=== PATIENT | female | born 1940 | race Caucasian/White ===

== ENCOUNTER 2017-05-29 11:22 | Inpatient (IN) | payer MEDICARE ==
[~2017-05-29] VITALS: Ht 157.5 cm; Wt 103.2 kg
[~2017-05-29 11:22] MED LIST: BENZ100 PO; DILTCD240 PO; FENO50TA PO; FURO20 PO; HYDR1CRE TOP; LORA.5 PO; METO25 PO; OXYC5 PO; PRAV40TA PO; RANI150 PO; TEMA15 PO
[2017-05-29 11:30] VITALS: BP 132/60; PULSE 109; RESP 20; TEMP 97.8; O2SAT 95
[2017-05-29] MEDS ORDERED: DULO1CAP2 PO (11:41)
[2017-05-29] MEDS ORDERED: WARF-18 PO (11:41)
[2017-05-29] MEDS ORDERED: LOSA100T PO (11:41)
[2017-05-29] MEDS ORDERED: FURO1TAB60 PO (11:41)
[2017-05-29] MEDS ORDERED: CART120C PO (11:41)
[2017-05-29] MEDS ORDERED: DIGO0.12 PO (11:41)
[2017-05-29] MEDS ORDERED: K-TA10TA PO (11:41)
[2017-05-29] MEDS ORDERED: METO25TA3 PO (11:41)
[2017-05-29] MEDS ORDERED: SODIUM CHLORIDE 0.9% FLUSH 10 ML FLUSH IVF PRN ×2 (12:00→18:00)
[2017-05-29] MEDS ORDERED: SODIUM CHLOR 0.9% 1000 ML INJ 1,000 ML IV ONE (12:00)
[2017-05-29 12:09] VITALS: O2SAT 99
[2017-05-29] MEDS ORDERED: ONDANSETRON HCL 4 MG/2 ML VIAL IV PUSH ONE (12:15)
[2017-05-29 12:20] LABS: AUTOMATED NEUTROPHIL # 14.1 TH/MM3 (1.8-7.7); BASOPHIL # 0.1 TH/MM3 (0-0.2); BASOPHIL % 0.4 % (0.0-2.0); EOSINOPHIL # 0.3 TH/MM3 (0-0.4); EOSINOPHIL % 1.6 % (0.0-4.0); HEMATOCRIT 33.3 % (35.0-46.0); HEMO FLAGS DIFF FINAL; LYMPH % 7.7 % (9.0-44.0); LYMPHOCYTE # 1.3 TH/MM3 (1.0-4.8); MEAN CELL VOLUME 93.3 FL (80.0-100.0); MEAN CORPUSCULAR HEMOGLOBIN 29.9 PG (27.0-34.0); MONO % 4.3 % (0.0-8.0); PLATELET COUNT 244 TH/MM3 (150-450); RED BLOOD COUNT 3.57 MIL/MM3 (4.00-5.30); RED CELL DISTRIBUTION WIDTH 15.1 % (11.6-17.2); WHITE BLOOD COUNT 16.4 TH/MM3 (4.0-11.0)
[2017-05-29 12:32] LABS: APTT (PATIENT) 39.2 SEC (24.3-30.1); INTERNATIONAL NORMALIZED RATIO 4.5 RATIO; PROTHROMBIN TIME - PATIENT 52.8 SEC (9.8-11.6)
[2017-05-29 12:36] LABS: ALT (GPT) 40 U/L (10-53); ANION GAP 11 MEQ/L (5-15); AST (GOT) 40 U/L (15-37); BICARBONATE 25.7 MEQ/L (21.0-32.0); BLOOD UREA NITROGEN 28 MG/DL (7-18); CHLORIDE 103 MEQ/L (98-107); GLOMERULAR FILTRATION RATE 56 ML/MIN (>89); MAGNESIUM 1.8 MG/DL (1.5-2.5); POTASSIUM 4.3 MEQ/L (3.5-5.1); SODIUM (NA) 140 MEQ/L (136-145)
--- NOTE | 2017-05-29 12:38 | RADRPT ---
EXAM DATE/TIME: 05/29/2017 12:13 [facility] COMPARISON: CHEST SINGLE AP, May 22, 2016, 3:12. INDICATIONS : Syncope. MEDICAL HISTORY : Gastroesophageal reflux disease. Hypercholesterolemia. Hypertension. SURGICAL HISTORY : Cholecystectomy. ENCOUNTER: Initial ACUITY: 1 day PAIN SCORE: 0/10 LOCATION: Bilateral chest FINDINGS: The cardiac silhouette is enlarged in transverse diameter. There is right lower lobe atelectasis vers us pneumonia. Followup examination is recommended if clinically indicated. The left lung is free of a cute parenchymal opacity. No pleural effusions are identified. CONCLUSION: 1. Right lower lobe atelectasis versus pneumonia. Vamshi Fernandez MD on May 29, 2017 at 12:35 Board Certified Radiologist. This report was verified electronically.
[2017-05-29 12:51] LABS: ALKALINE PHOSPHATASE 131 U/L (45-117); CREATINE KINASE 578 U/L (26-192); DIGOXIN 0.7 NG/ML (0.8-2.0)
[2017-05-29 13:17] LABS: CKMB 1.3 NG/ML (0.5-3.6)
--- NOTE | 2017-05-29 13:52 | RADRPT ---
EXAM DATE/TIME: 05/29/2017 13:18 [facility] COMPARISON: No previous studies available for comparison. INDICATIONS : Trauma, fall a few days ago. Weakness and dizziness. RADIATION DOSE: 56.35 CTDIvol (mGy) MEDICAL HISTORY : Cardiovascular disease. Hypertension. SURGICAL HISTORY : Cholecystectomy. ENCOUNTER: Initial ACUITY: 4 - 6 days PAIN SCALE: 10/10 LOCATION: cranial TECHNIQUE: Multiple contiguous axial images were obtained of the head. Using automated exposure control and adj ustment of the mA and/or kV according to patient size, radiation dose was kept as low as reasonably a chievable to obtain optimal diagnostic quality images. DICOM format image data is available electro nically for review and comparison. FINDINGS: CEREBRUM: There is 8 small parafalcine posterior subdural blood layering along the right tentorium with associa earl small cortical hemorrhage high right parietal region. The left hemisphere is unremarkable. POSTERIOR FOSSA: The cerebellum and brainstem are intact. The 4th ventricle is midline. The cerebellopontine angle i s unremarkable. EXTRACRANIAL: The visualized portion of the orbits is intact. SKULL: The calvaria is intact. No evidence of skull fracture. CONCLUSION: Parafalcine subdural hematoma small cortical hemorrhage on the right. There is no mass effect. Vic Romero MD FACR on May 29, 2017 at 13:48 Board Certified Radiologist. This report was verified electronically.
--- NOTE | 2017-05-29 13:56 | PD ---
HPI Chief Complaint: General Weakness Time Seen by Provider: 11:39 Travel History International Travel<30 days: No Contact w/Intl Traveler<30days: No Traveled to known affect area: No History of Present Illness HPI Patient is a 76-year-old female who presents to emergency room with complaints of generalized weakness. Patient reports that she does take Coumadin as she has history of atrial fibrillation. Patient reports that 2 days ago, she fell twice. Patient reports that the first she fell, she slipped on water onto the floor. Patient did hit her head at this time. Reports no loss of consciousness. Patient reports that she fell a second time on Thursday night, reports at that time, she fell in the bathroom and she made had a syncopal episode during that time. Patient reports that she was seen at an outside hospital and had " a full body scan" and was told that everything was okay. Patient returns to emergency room today as she appears weaker and has some dizziness. Daughter reports the patient had an episode of hypotension upon arrival of EMS. PFSH Past Medical History Arthritis: Yes Asthma: No Autoimmune Disease: No Blood Disorders: No Heart Rhythm Problems: Yes (this visit) Cancer: No Cardiovascular Problems: Yes (acute afib/rvr this visit) High Cholesterol: Yes Chemotherapy: No Chest Pain: No Congestive Heart Failure: No COPD: No Cerebrovascular Accident: No Diabetes: No Diminished Hearing: No Endocrine: Yes Gastrointestinal Disorders: Yes (HX DIVERTICULITIS) GERD: Yes Genitourinary: No Headaches: No Hiatal Hernia: Yes Heparin Induced Thrombocytopen: No Hypertension: Yes Immune Disorder: No Implanted Vascular Access Dvce: Yes Kidney Stones: No Musculoskeletal: No Neurologic: No Psychiatric: No Reproductive: No Respiratory: No Immunizations Current: Yes Migraines: No Radiation Therapy: No Renal Failure: No Seizures: No Sickle Cell Disease: No Sleep Apnea: No Thyroid Disease: Yes (GOITER) Ulcer: No Past Surgical History Abdominal Surgery: No AICD: No Arteriovenous Shunt: No Cardiac Surgery: No Cholecystectomy: Yes Ear Surgery: No Endocrine Surgery: No Eye Surgery: Yes (cataract bilateral) Genitourinary Surgery: No Gynecologic Surgery: No Insulin Pump: No Joint Replacement: Yes (BILATERAL KNEE) Neurologic Surgery: No Oral Surgery: No Pacemaker: No Thoracic Surgery: No Other Surgery: Yes Social History Alcohol Use: No Tobacco Use: No Substance Use: No Allergies-Medications (Allergen,Severity, Reaction): Coded Allergies: codeine (Unverified Allergy, Severe, NAUSEA, 05/12/17) piperacillin (Unverified Allergy, Intermediate, Rash, 05/12/17) tazobactam (Unverified Allergy, Intermediate, Rash, 05/12/17) Reported Meds & Prescriptions Reported Meds & Active Scripts Active Reported Cartia Xt (Diltiazem ER 24 HR) 120 Mg Caper 180 Mg PO DAILY K-Tab (Potassium Chloride) 10 Meq Tab 10 Meq PO DAILY Metoprolol Tartrate 25 Mg Tab 25 Mg PO BID Lasix (Furosemide) 40 Mg Tab 40 Mg PO DAILY Digoxin 0.125 Mg Tab 0.125 Mg PO DAILY Warfarin 2.5 Mg Tab 2.5 Mg PO DAILY Losartan (Losartan Potassium) 100 Mg Tab 100 Mg PO DAILY Duloxetine DR (Duloxetine HCl) 30 Mg Capdr 30 Mg PO DAILY Review of Systems General / Constitutional: No: Fever Eyes: No: Visual changes HENT: Positive: Headaches Cardiovascular: No: Chest Pain or Discomfort Respiratory: No: Shortness of Breath Gastrointestinal: No: Abdominal Pain Genitourinary: No: Dysuria Musculoskeletal: No: Pain Skin: No Rash Neurologic: Positive: Weakness, Dizziness Psychiatric: No: Depression Endocrine: No: Polydipsia Hematologic/Lymphatic: No: Easy Bruising Physical Exam Narrative GENERAL: Moderate distress SKIN: Focused skin assessment warm/dry. Patient pale-appearing HEAD: Atraumatic. Normocephalic. EYES: Pupils equal and round. No scleral icterus. No injection or drainage. ENT: No nasal bleeding or discharge. Mucous membranes pink and moist. NECK: Trachea midline. No JVD. CARDIOVASCULAR: Regular rate and rhythm. No murmur appreciated. RESPIRATORY: No accessory muscle use. Clear to auscultation. Breath sounds equal bilaterally. GASTROINTESTINAL: Abdomen soft, non-tender, nondistended. Hepatic and splenic margins not palpable. Ostomy bag in place MUSCULOSKELETAL: No obvious deformities. No clubbing. No cyanosis. No edema. NEUROLOGICAL: Awake and alert. No obvious cranial nerve deficits. Motor grossly within normal limits. Normal speech. PSYCHIATRIC: Appropriate mood and affect; insight and judgment normal. Data Data Last Documented VS Vital Signs Date Time Temp Pulse Resp B/P (MAP) Pulse Ox O2 Delivery O2 Flow Rate FiO2 05/29/17 12:09 99 05/29/17 11:30 97.8 109 20 132/60 (84) Orders Orders Electrocardiogram (05/29/17 12:00) Complete Blood Count With Diff (05/29/17 12:00) Comprehensive Metabolic Panel (05/29/17 12:00) Magnesium (Mg) (05/29/17 12:00) B-Type Natriuretic Peptide (05/29/17 12:00) Ckmb (Isoenzyme) Profile (05/29/17 12:00) Troponin I (05/29/17 12:00) Act Partial Throm Time (Ptt) (05/29/17 12:00) Prothrombin Time / Inr (Pt) (05/29/17 12:00) Urinalysis - C+S If Indicated (05/29/17 12:00) Chest, Single Ap (05/29/17 12:00) Ct Brain W/O Iv Contrast(Rout) (05/29/17 12:00) Ecg Monitoring (05/29/17 12:00) Iv Access Insert/Monitor (05/29/17 12:00) Oximetry (05/29/17 12:00) Sodium Chloride 0.9% Flush (Ns Flush) (05/29/17 12:00) Sodium Chlor 0.9% 1000 Ml Inj (Ns 1000 M (05/29/17 12:00) Digoxin (05/29/17 12:00) Oxycodone (Roxicodone) (05/29/17 12:00) Ondansetron Inj (Zofran Inj) (05/29/17 12:15) CKMB (05/29/17 12:00) CKMB% (05/29/17 12:00) Blood Culture (05/29/17 14:04) Levofloxacin 750 Mg Premix Inj (Levaquin (05/29/17 14:15) Morphine Inj (Morphine Inj) (05/29/17 14:15) Consult Neurosurgery (05/29/17 ) Admit Order (Ed Use Only) (05/29/17 14:46) ^ Lab Follow Up (05/29/17 14:47) Prothrombin Complex Conc Inj (Kcentra In (05/29/17 15:30) Phytonadione (Mephyton) (05/29/17 15:00) (Hub Use Only)Inp Phy Cons/Ref (05/29/17 ) Labs Laboratory Tests Test 05/29/17 12:00 White Blood Count 16.4 TH/MM3 Red Blood Count 3.57 MIL/MM3 Hemoglobin 10.7 GM/DL Hematocrit 33.3 % Mean Corpuscular Volume 93.3 FL Mean Corpuscular Hemoglobin 29.9 PG Mean Corpuscular Hemoglobin Concent 32.0 % Red Cell Distribution Width 15.1 % Platelet Count 244 TH/MM3 Mean Platelet Volume 8.3 FL Neutrophils (%) (Auto) 86.0 % Lymphocytes (%) (Auto) 7.7 % Monocytes (%) (Auto) 4.3 % Eosinophils (%) (Auto) 1.6 % Basophils (%) (Auto) 0.4 % Neutrophils # (Auto) 14.1 TH/MM3 Lymphocytes # (Auto) 1.3 TH/MM3 Monocytes # (Auto) 0.7 TH/MM3 Eosinophils # (Auto) 0.3 TH/MM3 Basophils # (Auto) 0.1 TH/MM3 CBC Comment DIFF FINAL Differential Comment Prothrombin Time 52.8 SEC Prothromb Time International Ratio 4.5 RATIO Activated Partial Thromboplast Time 39.2 SEC Blood Urea Nitrogen 28 MG/DL Creatinine 0.97 MG/DL Random Glucose 164 MG/DL Total Protein 6.8 GM/DL Albumin 2.9 GM/DL Calcium Level 9.6 MG/DL Magnesium Level 1.8 MG/DL Alkaline Phosphatase 131 U/L Aspartate Amino Transf (AST/SGOT) 40 U/L Alanine Aminotransferase (ALT/SGPT) 40 U/L Total Bilirubin 1.0 MG/DL Sodium Level 140 MEQ/L Potassium Level 4.3 MEQ/L Chloride Level 103 MEQ/L Carbon Dioxide Level 25.7 MEQ/L Anion Gap 11 MEQ/L Estimat Glomerular Filtration Rate 56 ML/MIN Total Creatine Kinase 578 U/L Creatine Kinase MB 1.3 NG/ML Creatine Kinase MB % 0.2 % Troponin I LESS THAN 0.02 NG/ML B-Type Natriuretic Peptide 171 PG/ML Digoxin Level 0.7 NG/ML MDM Medical Decision Making Medical Screen Exam Complete: Yes Emergency Medical Condition: Yes Interpretation(s) EGK at 1207: afib at 100bpm, qt/qtc: 331/388 Vital Signs Date Time Temp Pulse Resp B/P (MAP) Pulse Ox O2 Delivery O2 Flow Rate FiO2 05/29/17 12:09 99 05/29/17 11:30 97.8 109 20 132/60 (84) 95 Laboratory Tests Test 05/29/17 12:00 White Blood Count 16.4 TH/MM3 (4.0-11.0) Red Blood Count 3.57 MIL/MM3 (4.00-5.30) Hemoglobin 10.7 GM/DL (11.6-15.3) Hematocrit 33.3 % (35.0-46.0) Mean Corpuscular Volume 93.3 FL (80.0-100.0) Mean Corpuscular Hemoglobin 29.9 PG (27.0-34.0) Mean Corpuscular Hemoglobin Concent 32.0 % (32.0-36.0) Red Cell Distribution Width 15.1 % (11.6-17.2) Platelet Count 244 TH/MM3 (150-450) Mean Platelet Volume 8.3 FL (7.0-11.0) Neutrophils (%) (Auto) 86.0 % (16.0-70.0) Lymphocytes (%) (Auto) 7.7 % (9.0-44.0) Monocytes (%) (Auto) 4.3 % (0.0-8.0) Eosinophils (%) (Auto) 1.6 % (0.0-4.0) Basophils (%) (Auto) 0.4 % (0.0-2.0) Neutrophils # (Auto) 14.1 TH/MM3 (1.8-7.7) Lymphocytes # (Auto) 1.3 TH/MM3 (1.0-4.8) Monocytes # (Auto) 0.7 TH/MM3 (0-0.9) Eosinophils # (Auto) 0.3 TH/MM3 (0-0.4) Basophils # (Auto) 0.1 TH/MM3 (0-0.2) CBC Comment DIFF FINAL Differential Comment Prothrombin Time 52.8 SEC (9.8-11.6) Prothromb Time International Ratio 4.5 RATIO Activated Partial Thromboplast Time 39.2 SEC (24.3-30.1) Blood Urea Nitrogen 28 MG/DL (7-18) Creatinine 0.97 MG/DL (0.50-1.00) Random Glucose 164 MG/DL (74-106) Total Protein 6.8 GM/DL (6.4-8.2) Albumin 2.9 GM/DL (3.4-5.0) Calcium Level 9.6 MG/DL (8.5-10.1) Magnesium Level 1.8 MG/DL (1.5-2.5) Alkaline Phosphatase 131 U/L (45-117) Aspartate Amino Transf (AST/SGOT) 40 U/L (15-37) Alanine Aminotransferase (ALT/SGPT) 40 U/L (10-53) Total Bilirubin 1.0 MG/DL (0.2-1.0) Sodium Level 140 MEQ/L (136-145) Potassium Level 4.3 MEQ/L (3.5-5.1) Chloride Level 103 MEQ/L (98-107) Carbon Dioxide Level 25.7 MEQ/L (21.0-32.0) Anion Gap 11 MEQ/L (5-15) Estimat Glomerular Filtration Rate 56 ML/MIN (>89) Total Creatine Kinase 578 U/L (26-192) Creatine Kinase MB 1.3 NG/ML (0.5-3.6) Creatine Kinase MB % 0.2 % (0.0-4.0) Troponin I LESS THAN 0.02 NG/ML B-Type Natriuretic Peptide 171 PG/ML (0-100) Digoxin Level 0.7 NG/ML (0.8-2.0) Last Impressions Head CT 05/29/17 1200 Signed Impressions: Service Date/Time: Monday, May 29, 2017 13:18 - CONCLUSION: Parafalcine subdural hematoma small cortical hemorrhage on the right. There is no mass effect. Vic Romero MD FACR Chest X-Ray 05/29/17 1200 Signed Impressions: Service Date/Time: Monday, May 29, 2017 12:13 - CONCLUSION: 1. Right lower lobe atelectasis versus pneumonia. Vamshi Fernandez MD Differential Diagnosis Differential includes intracranial hemorrhage, UTI, electrolyte abnormality, ACS , arrhythmia Narrative Course Patient was placed on a cardiac monitor technician upon arrival to emergency room. CT of head ordered as well as of the chest and lab work. Laboratory Tests Test 05/29/17 12:00 White Blood Count 16.4 TH/MM3 (4.0-11.0) Red Blood Count 3.57 MIL/MM3 (4.00-5.30) Hemoglobin 10.7 GM/DL (11.6-15.3) Hematocrit 33.3 % (35.0-46.0) Mean Corpuscular Volume 93.3 FL (80.0-100.0) Mean Corpuscular Hemoglobin 29.9 PG (27.0-34.0) Mean Corpuscular Hemoglobin Concent 32.0 % (32.0-36.0) Red Cell Distribution Width 15.1 % (11.6-17.2) Platelet Count 244 TH/MM3 (150-450) Mean Platelet Volume 8.3 FL (7.0-11.0) Neutrophils (%) (Auto) 86.0 % (16.0-70.0) Lymphocytes (%) (Auto) 7.7 % (9.0-44.0) Monocytes (%) (Auto) 4.3 % (0.0-8.0) Eosinophils (%) (Auto) 1.6 % (0.0-4.0) Basophils (%) (Auto) 0.4 % (0.0-2.0) Neutrophils # (Auto) 14.1 TH/MM3 (1.8-7.7) Lymphocytes # (Auto) 1.3 TH/MM3 (1.0-4.8) Monocytes # (Auto) 0.7 TH/MM3 (0-0.9) Eosinophils # (Auto) 0.3 TH/MM3 (0-0.4) Basophils # (Auto) 0.1 TH/MM3 (0-0.2) CBC Comment DIFF FINAL Differential Comment Prothrombin Time 52.8 SEC (9.8-11.6) Prothromb Time International Ratio 4.5 RATIO Activated Partial Thromboplast Time 39.2 SEC (24.3-30.1) Blood Urea Nitrogen 28 MG/DL (7-18) Creatinine 0.97 MG/DL (0.50-1.00) Random Glucose 164 MG/DL (74-106) Total Protein 6.8 GM/DL (6.4-8.2) Albumin 2.9 GM/DL (3.4-5.0) Calcium Level 9.6 MG/DL (8.5-10.1) Magnesium Level 1.8 MG/DL (1.5-2.5) Alkaline Phosphatase 131 U/L (45-117) Aspartate Amino Transf (AST/SGOT) 40 U/L (15-37) Alanine Aminotransferase (ALT/SGPT) 40 U/L (10-53) Total Bilirubin 1.0 MG/DL (0.2-1.0) Sodium Level 140 MEQ/L (136-145) Potassium Level 4.3 MEQ/L (3.5-5.1) Chloride Level 103 MEQ/L (98-107) Carbon Dioxide Level 25.7 MEQ/L (21.0-32.0) Anion Gap 11 MEQ/L (5-15) Estimat Glomerular Filtration Rate 56 ML/MIN (>89) Total Creatine Kinase 578 U/L (26-192) Creatine Kinase MB 1.3 NG/ML (0.5-3.6) Creatine Kinase MB % 0.2 % (0.0-4.0) Troponin I LESS THAN 0.02 NG/ML B-Type Natriuretic Peptide 171 PG/ML (0-100) Digoxin Level 0.7 NG/ML (0.8-2.0) Last Impressions Head CT 05/29/17 1200 Signed Impressions: Service Date/Time: Monday, May 29, 2017 13:18 - CONCLUSION: Parafalcine subdural hematoma small cortical hemorrhage on the right. There is no mass effect. Vic Romero MD FACR Chest X-Ray 05/29/17 1200 Signed Impressions: Service Date/Time: Monday, May 29, 2017 12:13 - CONCLUSION: 1. Right lower lobe atelectasis versus pneumonia. Vamshi Fernandez MD Patient has a white blood cell count of 16.4 with questionalbe RLL infiltrate. Plan to culture patient. Will start patient on levaquin CT of her head shows a parafalcine subdural hematoma with small cortical hemorrhage on the right with no mass effect. Patient's INR is 4.5, call made to neurosurgery. Call made to Employee Relations Advisor for admision Plan to reverse warfarin with PO vitamin K as well as Kcentra given her subdural hematoma Call and consult placed to Dr. Nicholas Baca accepts pt to service Critical Care Narrative Aggregate critical care time was 45 minutes. Time to perform other separately billable procedures was not included in the critical care time. My time did not include minutes spent treating any other patients simultaneously or on activities that did not directly contribute to the patient's treatment. The services I provided to this patient were to treat and/or prevent clinically significant deterioration that could result in: , decompensation, deterioration I provided critical care services requiring my management, as noted below: Chart data review, documentation time, medication orders and management, vital sign assessments/reviewing monitor data, ordering and reviewing lab tests, ordering and interpreting/reviewing x-rays and diagnostic studies, care of the patient and discussion of the patient with the admitting physicians. Diagnosis Primary Impression: Subdural hematoma Additional Impressions: Pneumonia Overdose of coumadin Admitting Information Admitting Physician Requests: Admit Lea Jensen DO May 29, 2017 13:56
[2017-05-29] MEDS ORDERED: MORPHINE SULFATE 4 MG/ML INJ IV PUSH ONE (14:15)
[2017-05-29] MEDS ORDERED: LEVOFLOXACIN 750 MG PREMIX INJ 150 ML IV ONE (14:15)
[2017-05-29] MEDS ORDERED: PHYTONADIONE 5 MG TAB PO ONE (15:00)
[2017-05-29] MEDS ORDERED: MISCELLANEOUS NURSING INFORMATION XX SCH (15:15)
[2017-05-29] MEDS ORDERED: SENNOSIDES 8.6 MG TAB PO PRN (15:15)
[2017-05-29] MEDS ORDERED: BISACODYL 10 MG SUPP RECTAL PRN (15:15)
[2017-05-29] MEDS ORDERED: ONDANSETRON HCL 4 MG/2 ML VIAL IV PRN (15:15)
[2017-05-29] MEDS ORDERED: LACTULOSE SYRUP 20 GM/30 ML CUP PO PRN (15:15)
[2017-05-29] MEDS ORDERED: LABETALOL HCL 100 MG/20 ML VIAL IV PUSH PRN (15:15)
[2017-05-29] MEDS ORDERED: RESP: ALBUTEROL 2.5 MG/3 ML NEB (PRN) INH (15:15)
[2017-05-29] MEDS ORDERED: SODIUM CHLORIDE 0.9% FLUSH 10 ML FLUSH IV FLUSH PRN (15:15)
[2017-05-29] MEDS ORDERED: CLEVIDIPINE INJ 50 ML IV PRN (15:15)
[2017-05-29] MEDS ORDERED: MAGNESIUM HYDROXIDE SUSP 30 ML CUP PO PRN (15:15)
[2017-05-29] MEDS ORDERED: CHLORHEXIDINE GLUCONATE 2 % 1 PACK (2 CLOTHS) TOP PRN (15:15)
[2017-05-29] MEDS ORDERED: PROTHROMBIN COMPLEX CONC INJ 2,500 UNITS in SYRINGE/BAG 1 EA IV ONE ×2 (15:30→16:30)
--- NOTE | 2017-05-29 15:31 | HHI.HP ---
[facility] Service Critical Care Medicine Primary Care Physician Shad Apple M.D. Admission Diagnosis Subdural hematoma Diagnosis: (1) Subdural hematoma Diagnosis: Principal (2) Depression Diagnosis: Principal (3) Splenic infarct Diagnosis: Secondary (4) Gastroesophageal reflux disease Diagnosis: Secondary (5) IBS (irritable bowel syndrome) Diagnosis: Secondary (6) History of DVT (deep vein thrombosis) Diagnosis: Secondary (7) Hiatal hernia Diagnosis: Secondary (8) Diverticulosis Diagnosis: Secondary (9) Chronic anticoagulation Diagnosis: Principal (10) Leukocytosis Diagnosis: Principal (11) Pneumonia Diagnosis: Principal (12) Atrial fibrillation with RVR Diagnosis: Principal (13) HTN (hypertension) Diagnosis: Principal (14) Hyperlipidemia Diagnosis: Principal (15) Current use of anticoagulant therapy Diagnosis: Principal (16) SIRS (systemic inflammatory response syndrome) Diagnosis: Principal Chief Complaint: Altered mental status Travel History International Travel<30 Days: No Contact w/Intl Traveler <30 Da: No Traveled to Known Affected Are: No Sepsis Criteria SIRS Criteria (2 or more): Heart rate over 90, WBC > 58826, < 4000 or > 10% bands Sepsis Criteria (SIRS+source): Infect source susp/known Severe Sepsis (+one): Hypotension, Hypoperfusion History of Present Illness 76-year-old female. Date of admission 05/29/2017. Past medical history includes history of atrial fibrillation, hypertension, colovesicular fistula, chronic anticoagulation on warfarin. Patient reports that 2 days ago, she fell after she slipped on water onto the floor. Patient did hit her head at this time. Reports no loss of consciousness. Patient reports that she fell a second time on Thursday night, reports at that time, she fell in the bathroom and she made had a syncopal episode during that time. Patient reports that she was seen at an outside hospital and had " a full body scan" and was told that everything was okay. Patient returns to emergency room today as she appears weaker and has some dizziness. Daughter reports the patient had an episode of hypotension upon arrival of EMS. At this facility, patient was noted on CT head to have subdural hematoma/also noted to be in atrial fibrillation with rapid ventricular response. Patient received 1 L normal saline. Patient received K [facility] 2500, vitamin K 5 mg. She received 1 dose Levaquin for right lower lobe pneumonia. Neurosurgery was consulted. We are asked to admit the patient. Patient remained in A. fib with RVR. Central was placed and started on Blayne- Synephrine/Cardizem for rate control. Initial troponin negative. Denies chest pain.. Cardiology consultation. Review of Systems Constitutional: COMPLAINS OF: Fatigue, Dizziness, DENIES: Fever, Weight loss, Chills Endocrine: DENIES: Polydipsia, Polyuria Eyes: DENIES: Blurred vision, Double Vision Ears, nose, mouth, throat: DENIES: Tinnitus Respiratory: DENIES: Apneas Cardiovascular: DENIES: Chest pain Gastrointestinal: DENIES: Abdominal pain, Nausea Genitourinary: COMPLAINS OF: Urinary frequency, Urinary incontinence Musculoskeletal: DENIES: Joint pain, Muscle aches Integumentary: DENIES: Abnormal pigmentation Hematologic/lymphatic: DENIES: Bruising Immunologic/allergic: DENIES: Eczema Neurologic: COMPLAINS OF: Headache, Poor Balance, DENIES: Localized weakness, Paresthesias, Tremor Psychiatric: COMPLAINS OF: Anxiety, Confusion, DENIES: Mood changes Past Family Social History Allergies: Coded Allergies: codeine (Verified Allergy, Severe, NAUSEA, 05/29/17) piperacillin (Verified Allergy, Intermediate, Rash, 05/29/17) tazobactam (Verified Allergy, Intermediate, Rash, 05/29/17) Past Medical History Gastroesophageal reflux disease Hypertension Dyslipidemia Chronic atrial fibrillation Obstructive sleep apnea Hiatal hernia IBS History of splenic infarction History of DVT bilateral lower extremity status post embolectomy Chronic warfarin use Depression Past Surgical History Lap-assisted loop colostomy with revision by Dr. Wetzel History of lower extremity embolectomy by Dr. Mo Cholecystectomy Bilateral total knee replacements with revision of left knee Cataracts I'll see Reported Medications Cartia Xt (Diltiazem ER 24 HR) 120 Mg Caper 180 Mg PO DAILY K-Tab (Potassium Chloride) 10 Meq Tab 10 Meq PO DAILY Metoprolol Tartrate 25 Mg Tab 25 Mg PO BID Lasix (Furosemide) 40 Mg Tab 40 Mg PO DAILY Digoxin 0.125 Mg Tab 0.125 Mg PO DAILY Warfarin 2.5 Mg Tab 2.5 Mg PO DAILY Losartan (Losartan Potassium) 100 Mg Tab 100 Mg PO DAILY Duloxetine DR (Duloxetine HCl) 30 Mg Capdr 30 Mg PO DAILYWarfarin 2.5 mg by mouth daily Digoxin 0.125 mg by mouth daily Active Ordered Medications Reviewed in EMR Family History Mother from pancreatic cancer. Father from myocardial infarction Social History Tobacco, alcohol or IV drug use negative Physical Exam Vital Signs Vital Signs Date Time Temp Pulse Resp B/P (MAP) Pulse Ox O2 Delivery O2 Flow Rate FiO2 05/29/17 12:09 99 05/29/17 11:30 97.8 109 20 132/60 (84) 95 Physical Exam GENERAL: 76 year old female, critically ill currently resting in bed SKIN: Warm and dry. Unstageable sacral decubitus ulcer HEAD: Atraumatic. Normocephalic. EYES: Pupils equal and round about 3 mm bilaterally and reactive. No scleral icterus. No injection or drainage. ENT: No nasal bleeding or discharge. Mucous membranes pink and moist. NECK: Trachea midline. No JVD. Right IJ is clean dry and intact CARDIOVASCULAR: Tachycardia, IR. S1, S2. No S4 without murmur RESPIRATORY: Few fine crackles crackles appreciated in right lower lobe. No end expiratory wheeze GASTROINTESTINAL: Abdomen soft, non-tender, nondistended. Hypoactive bowel sounds appreciated MUSCULOSKELETAL: Extremities without significant peripheral edema. No obvious deformities. NEUROLOGICAL: Awake and alert. No obvious cranial nerve deficits. Motor grossly within normal limits. Five out of 5 muscle strength in the arms and legs. Normal speech. Laboratory Laboratory Tests Test 05/29/17 12:00 White Blood Count 16.4 Red Blood Count 3.57 Hemoglobin 10.7 Hematocrit 33.3 Mean Corpuscular Volume 93.3 Mean Corpuscular Hemoglobin 29.9 Mean Corpuscular Hemoglobin Concent 32.0 Red Cell Distribution Width 15.1 Platelet Count 244 Mean Platelet Volume 8.3 Neutrophils (%) (Auto) 86.0 Lymphocytes (%) (Auto) 7.7 Monocytes (%) (Auto) 4.3 Eosinophils (%) (Auto) 1.6 Basophils (%) (Auto) 0.4 Neutrophils # (Auto) 14.1 Lymphocytes # (Auto) 1.3 Monocytes # (Auto) 0.7 Eosinophils # (Auto) 0.3 Basophils # (Auto) 0.1 CBC Comment DIFF FINAL Differential Comment Prothrombin Time 52.8 Prothromb Time International Ratio 4.5 Activated Partial Thromboplast Time 39.2 Blood Urea Nitrogen 28 Creatinine 0.97 Random Glucose 164 Total Protein 6.8 Albumin 2.9 Calcium Level 9.6 Magnesium Level 1.8 Alkaline Phosphatase 131 Aspartate Amino Transf (AST/SGOT) 40 Alanine Aminotransferase (ALT/SGPT) 40 Total Bilirubin 1.0 Sodium Level 140 Potassium Level 4.3 Chloride Level 103 Carbon Dioxide Level 25.7 Anion Gap 11 Estimat Glomerular Filtration Rate 56 Total Creatine Kinase 578 Creatine Kinase MB 1.3 Creatine Kinase MB % 0.2 Troponin I LESS THAN 0.02 B-Type Natriuretic Peptide 171 Digoxin Level 0.7 Date/Time Source Procedure Growth Status 05/29/17 14:20 Blood Peripheral Aerobic Blood Culture Pending Received 05/29/17 14:20 Blood Peripheral Anaerobic Blood Culture Pending Received Result Diagram: 05/29/17 1200 05/29/17 1200 Imaging Last Impressions Head CT 05/29/17 1200 Signed Impressions: Service Date/Time: Monday, May 29, 2017 13:18 - CONCLUSION: Parafalcine subdural hematoma small cortical hemorrhage on the right. There is no mass effect. Vic Romero MD FACR Chest X-Ray 05/29/17 1200 Signed Impressions: Service Date/Time: Monday, May 29, 2017 12:13 - CONCLUSION: 1. Right lower lobe atelectasis versus pneumonia. Vamshi Fernandez MD Capjilli VTE Risk Assessment Caprini VTE Risk Assessment: Mod/High Risk (score >= 2) VTE Pharm Contraindication: Active bleeding Caprini Risk Assessment Model Point Value = 1 Point Value = 2 Point Value = 3 Point Value = 5 Age 41-60 Minor surgery BMI > 25 kg/m2 Swollen legs Varicose veins or History of unexplained or recurrent spontaneous Oral contraceptives or hormone replacement Sepsis (< 1 month) Serious lung disease, including pneumonia (< 1 month) Abnormal pulmonary function Acute myocardial infarction Congestive heart failure (< 1 month) History of inflammatory bowel disease Medical patient at bed rest Age 61-74 Arthroscopic surgery Major open surgery (> 45 min) Laparoscopic surgery (> 45 min) Malignancy Confined to bed (> 72 hours) Immobilizing plaster cast Central venous access Age >= 75 History of VTE Family history of VTE Factor V Leiden Prothrombin [id number] Lupus anticoagulant Anticardiolipin antibodies Elevated serum homocysteine Heparin-induced thrombocytopenia Other congenital or acquired thrombophilia Stroke (< 1 month) Elective arthroplasty Hip, pelvis, or leg fracture Acute spinal cord injury (< 1 month) Prophylaxis Regimen Total Risk Factor Score Risk Level Prophylaxis Regimen 0-1 Low Early ambulation 2 Moderate Order ONE of the following: *Sequential Compression Device (SCD) *Heparin 5000 units SQ BID 3-4 Higher Order ONE of the following medications: *Heparin 5000 units SQ TID *Enoxaparin/Lovenox 40 mg SQ daily (WT < 150 kg, CrCl > 30 mL/min) *Enoxaparin/Lovenox 30 mg SQ daily (WT < 150 kg, CrCl > 10-29 mL/min) *Enoxaparin/Lovenox 30 mg SQ BID (WT < 150 kg, CrCl > 30 mL/min) AND/OR *Sequential Compression Device (SCD) 5 or more Highest Order ONE of the following medications: *Heparin 5000 units SQ TID (Preferred with Epidurals) *Enoxaparin/Lovenox 40 mg SQ daily (WT < 150 kg, CrCl > 30 mL/min) *Enoxaparin/Lovenox 30 mg SQ daily (WT < 150 kg, CrCl > 10-29 mL/min) *Enoxaparin/Lovenox 30 mg SQ BID (WT < 150 kg, CrCl > 30 mL/min) AND *Sequential Compression Device (SCD) Assessment and Plan Assessment and Plan Neuro/Psych: Right tentorium subdural hematoma/small cortical hemorrhage right parietal field /acute Depression Cataracts/IOC CT brain 05/29 revealed small parafalcine posterior subdural hematoma, involving the right tentorium, with a small cortical hemorrhage involving the right parietal deshpande Dr. Peterson/neurosurgery consulted Plan for repeat CT brain in a.m. 05/30 Goal keep systolic blood pressure less than 140-150 Levetiracetam 500 mill grams IV twice a day 7 day seizure prophylaxis Keep head of bed at 30 Neurochecks Continue duloxetine 30 mg by mouth daily for depression CV: Severe sepsis - secondary right lower lobe pneumonia rule out UTI A. fib with RVR Hypertension Dyslipidemia Digoxin level 0.7. Received 0.25 mill grams IV 1 now Recheck digoxin level in a.m. Continue metoprolol 25 mg by mouth twice a day/home medication Holding diltiazem sustained-release 180 mg daily and losartan 100 mg by mouth daily. As needed labetalol, clevidipine drip to maintain systolic blood pressure less than 140-150 Addendum Central line placed. We'll start on Blayne-Synephrine and Cardizem for rate control/blood pressure control to present time. Cardiology consultation Resp: History of JACOB? Nasal cannula to maintain saturations greater than equal to 92% Incentive spirometry while awake Chest x-ray reveals right lower lobe infiltrate possibly pneumonia. See ID Albuterol nebulizers every 2 hours. Dyspnea GI: Gastroesophageal reflux disease History of lap-assisted loop colostomy with revision secondary to colo vesicular fistula by Dr. Wetzel Hiatal hernia IBS History of splenic infarction Patient is currently nothing by mouth Pantoprazole for GI prophylaxis Docusate sodium/senna 1 tablet twice a day for bowel regimen Ostomy cares : Jenkins catheter if indicated for accurate I's and O's in a critically ill patient Endo: Hyperglycemia of critical illness Sliding-scale insulin with Accu-Cheks to maintain euglycemia/low regimen with Accu-Cheks every 6 hours Renal: Creatinine currently within normal limits Monitor urine output Accurate I's and O's Heme: Leukocytosis Normocytic anemia Chronic warfarin use History of right femoral artery DVT - embolectomy by Dr. Mo at [facility] Patient received prothrombin complex concentrate with 35 units per kilogram IV 1 now. Maximum 3500 units. Will give with vitamin K 1 now. Recheck INR 30 minutes after infusion and every 6 hours 24 hours per protocol Monitor CBC daily. Follow trends. Recheck coags in AM. ID: Right lower lobe pneumonia Noted allergy to Piperacillin/tazobactam with rash Using vancomycin, Azactam and Flagyl currently. Noted increased risks of seizures/elevated INR with elevated warfarin Receive 1 dose of levofloxacin in ED Blood cultures 2, UA pending FEN: Replace electrolytes as clinically indicated Magnesium 2 g IV 1 now for magnesium 1.7 On scheduled potassium 10 mEq by mouth daily at home due to chronic furosemide use MSK: History of sacral decubitus ulcer stage IV healed Wound care/PT evaluate and treat Access - Utilize peripheral IV. Central line if indicated Prophylaxis - GI - pantoprazole - DVT - SCD/pharmacological prophylaxis contraindicated with acute subdural hematoma Critical Care: The total critical care time was 35 minutes. Time to perform other separately billable procedures was not included in the critical care time. Code Status Full code Discussed Condition With Patient. Dr. Jensen/ED physician. Dr. Fitzgerald. Care plan discussed and all questions answered Problem Qualifiers (1) Depression: Qualified Codes: F32.9 - Major depressive disorder, single episode, unspecified (2) Gastroesophageal reflux disease: Qualified Codes: K21.9 - Gastro-esophageal reflux disease without esophagitis (3) IBS (irritable bowel syndrome): Qualified Codes: K58.9 - Irritable bowel syndrome without diarrhea (4) Diverticulosis: Qualified Codes: K57.90 - Diverticulosis of intestine, part unspecified, without perforation or abscess without bleeding (5) Leukocytosis: Qualified Codes: D72.829 - Elevated white blood cell count, unspecified (6) Pneumonia: Qualified Codes: J18.1 - Lobar pneumonia, unspecified organism (7) HTN (hypertension): Qualified Codes: I10 - Essential (primary) hypertension (8) Hyperlipidemia: Qualified Codes: E78.5 - Hyperlipidemia, unspecified Stefan Garcia MD May 29, 2017 15:31
[2017-05-29] MEDS ORDERED: Vancomycin Consult Pharmacy 1 EA OTHER SCH (15:45)
[2017-05-29] MEDS ORDERED: DIGOXIN 0.5 MG/2 ML VIAL IV PUSH ONE (16:00)
[2017-05-29 16:15] VITALS: BP 103/51; PULSE 144; RESP 13; TEMP 97.5; O2SAT 100
[2017-05-29] MEDS ORDERED: MAGNESIUM SULFATE 1 GM PREMIX 100 ML IV SCH (17:00)
[2017-05-29] MEDS: AZTREONAM INJ 1,000 MG in SODIUM CHLORIDE 0.9% INJ 100 ML IV SCH ×2 (17:01→23:42)
--- NOTE | 2017-05-29 17:53 | PD.PROCEDR ---
Central Line Procedure REASON FOR PROCEDURE Central venous access PROCEDURE PERFORMED Central line placement: Right IJ CVL CONSENT Informed consent for procedure was obtained. The risks and benefits of the procedure were discussed to include but limited to bleeding, clot formation, infection, and even . ANESTHESIA Local injection of 1% Lidocaine DESCRIPTION OF THE PROCEDURE The patient was placed in supine, mild Trendelenburg position. The area was exposed and cleansed with ChloraPrep, times two. Large sterile drape was used to cover the patient, with the site exposed, under sterile conditions including cap, face mask, sterile gown, and sterile gloves. On single attempt, the introducer needle was inserted with negative pressure in syringe and venous flash was obtained. The guide wire was then advanced without any restriction and the needle was removed. The dilator was used without any complications. Using Seldinger technique the triple-lumen catheter was advanced over the guide wire to a depth of 16 centimeters. The guide wire was removed. All ports were aspirated with dark venous blood return and flushed easily with sterile saline. All ports were capped. Antibiotic disc was placed around central line at puncture site. The central line was secured to the skin with two interrupted 2.0 silk sutures. The area was bandaged with sterile see-through central line bandage. RADIOLOGICAL DATA Ultrasound guidance was used to locate the right internal jugular vein. Doppler /color flow was used to confirm venous flow. COMPLICATIONS: No apparent complications ESTIMATED BLOOD LOSS: Less than 1 cc. Stefan Garcia MD May 29, 2017 17:53
[2017-05-29] MEDS ORDERED: TERBUTALINE INJ 1 MG/ML AMP SQ PRN (18:00)
[2017-05-29] MEDS ORDERED: DILTIAZEM INJ 125 MG in SODIUM CHLORIDE 0.9% INJ 100 ML IV PRN (18:00)
[2017-05-29] MEDS ORDERED: DILTIAZEM HCL 25 MG/5 ML VIAL IV PUSH ONE (18:00)
[2017-05-29] MEDS ORDERED: PHENYLEPHRINE INJ 160 MG in SODIUM CHLORID 0.9% 500 ML INJ 484 ML IV PRN (18:00)
[2017-05-29] MEDS: VANCOMYCIN INJ 1,250 MG in SODIUM CHLOR 0.9% 250 ML INJ 250 ML IV SCH (18:00)
[2017-05-29 18:51] LABS: INTERNATIONAL NORMALIZED RATIO 1.2 RATIO; PROTHROMBIN TIME - PATIENT 12.8 SEC (9.8-11.6)
[2017-05-29 19:00] VITALS: BP 117/54; PULSE 102; RESP 14; TEMP 97.9; O2SAT 94
--- NOTE | 2017-05-29 19:22 | RADRPT ---
EXAM DATE/TIME: 05/29/2017 17:56 [facility] COMPARISON: CHEST SINGLE AP, May 29, 2017, 12:13. INDICATIONS : Evaluate for central line placement. MEDICAL HISTORY : Gastroesophageal reflux disease. Hypercholesterolemia. Hypertension. SURGICAL HISTORY : Cholecystectomy. ENCOUNTER: Subsequent ACUITY: 1 day PAIN SCORE: 0/10 LOCATION: chest FINDINGS: A single view of the chest demonstrates some mild increased density at the right base. The left lung is grossly clear. The heart size is normal. There is a right internal jugular central line in good po sition. No pneumothorax is seen. CONCLUSION: Mild right base atelectasis or consolidation. This is improved from the prior exam. The new right int ernal jugular central line is in good position. Yovani Blanchard MD on May 29, 2017 at 19:19 Board Certified Radiologist. This report was verified electronically.
[2017-05-29] MEDS: metroNIDAZOLE 500 MG INJ 100 ML IV SCH (19:48)
[2017-05-29] MEDS: SODIUM CHLOR 0.9% 1000 ML INJ 1,000 ML IV SCH (19:49)
--- NOTE | 2017-05-29 20:08 | PD.CONS ---
History of Present Illness Service Neurosurgery Consult Requested By Medicine service Reason for Consult Subdural hematoma Primary Care Physician Shad Apple M.D. Diagnoses: History of Present Illness 76-year-old female with a history of atrial fibrillation, on Coumadin, presented to the emergency room today with complaint of generalized weakness following a fall 2, 2 days ago without loss of consciousness. She was seen at an outside hospital emergency room and indicates that she has scan with no significant abnormalities. She came back to the emergency room today due to persistent weakness and dizziness. On initial CT scan imaging in the emergency room she was noted to have a small subdural hematoma. She was given [facility]. and vitamin K as well as a 1 L normal saline infusion due to hypotension. Review of Systems Constitutional: COMPLAINS OF: Dizziness, DENIES: Fever Eyes: DENIES: Blurred vision, Diplopia Respiratory: DENIES: Shortness of breath Cardiovascular: DENIES: Chest pain, Palpitations Gastrointestinal: DENIES: Abdominal pain, Nausea, Vomiting Musculoskeletal: COMPLAINS OF: Joint pain (right knee), Joint Swelling, DENIES : Muscle aches Hematologic/lymphatic: DENIES: Bruising Neurologic: DENIES: Abnormal gait, Headache Psychiatric: DENIES: Anxiety, Confusion Past Family Social History Allergies: Coded Allergies: codeine (Verified Allergy, Severe, NAUSEA, 05/29/17) piperacillin (Verified Allergy, Intermediate, Rash, 05/29/17) tazobactam (Verified Allergy, Intermediate, Rash, 05/29/17) Past Medical History Atrial fibrillation on Coumadin Hypertension Dyslipidemia History of DVT Sleep apnea GERD Depression Past Surgical History Cholecystectomy Colostomy Total knee arthroplasty Cataract Reported Medications Reported Meds & Active Scripts Active Reported Cartia Xt (Diltiazem ER 24 HR) 120 Mg Caper 180 Mg PO DAILY K-Tab (Potassium Chloride) 10 Meq Tab 10 Meq PO DAILY Metoprolol Tartrate 25 Mg Tab 25 Mg PO BID Lasix (Furosemide) 40 Mg Tab 40 Mg PO DAILY Digoxin 0.125 Mg Tab 0.125 Mg PO DAILY Warfarin 2.5 Mg Tab 2.5 Mg PO DAILY Losartan (Losartan Potassium) 100 Mg Tab 100 Mg PO DAILY Duloxetine DR (Duloxetine HCl) 30 Mg Capdr 30 Mg PO DAILY Family History Mother with pancreatic cancer Father with cardiac disease-IN Social History Does not smoke cigarettes No Significant alcohol use Physical Exam Vital Signs Vital Signs Date Time Temp Pulse Resp B/P (MAP) Pulse Ox O2 Delivery O2 Flow Rate FiO2 05/29/17 19:00 98 Nasal Cannula 2.00 05/29/17 16:15 97.5 144 13 103/51 (68) 100 05/29/17 12:09 99 05/29/17 11:30 97.8 109 20 132/60 (84) 95 Physical Exam GENERAL: This is a well-nourished, well-developed patient, in no apparent distress. SKIN: No rashes, ecchymoses or lesions. Cool and dry. HEAD: Atraumatic. Normocephalic. No temporal or scalp tenderness. EYES: Sclerae are clear and nonicteric ENT: Nose without bleeding, purulent drainage or septal hematoma. Throat without erythema, tonsillar hypertrophy or exudate. Uvula midline. Airway patent. NECK: Trachea midline. No JVD or lymphadenopathy. Supple, nontender, no meningeal signs. CARDIOVASCULAR: Regular rate and rhythm without murmurs, gallops, or rubs. RESPIRATORY: Clear to auscultation. Breath sounds equal bilaterally. No wheezes , rales, or rhonchi. GASTROINTESTINAL: Abdomen soft, non-tender, nondistended. No hepato-splenomegaly , or palpable masses. No guarding. MUSCULOSKELETAL: Mild edema distal right and left lower extremity.. No joint tenderness, effusion, or edema noted except moderate edema and ecchymosis and tenderness over the right knee- per patient since her recent fall. No calf tenderness. Posterior tibial pulse 2+ bilateral NEUROLOGICAL: Awake and alert Oriented X 3 Speech is clear Conversant and appropriate Follow simple commands well Answers questions appropriately Reasonable judgment and insight Recent and remote memory are intact No evidence of anxiety or depression Pupils are equal and reactive to accommodation. Extra-ocular movements, visual deshpande to confrontation, facial sensorimotor, tongue, palate, sternocleidomastoid testing, hearing to finger rub testing, and bilateral shoulder shrug are all intact. Sensation is intact to light touch in all extremities Strength normal major flexion and extension groups all extremities Jamie's absent bilaterally No ankle clonus Plantar responses absent bilateral Fine motor movements intact upper extremities Laboratory Laboratory Tests Test 05/29/17 12:00 05/29/17 18:10 White Blood Count 16.4 Red Blood Count 3.57 Hemoglobin 10.7 Hematocrit 33.3 Mean Corpuscular Volume 93.3 Mean Corpuscular Hemoglobin 29.9 Mean Corpuscular Hemoglobin Concent 32.0 Red Cell Distribution Width 15.1 Platelet Count 244 Mean Platelet Volume 8.3 Neutrophils (%) (Auto) 86.0 Lymphocytes (%) (Auto) 7.7 Monocytes (%) (Auto) 4.3 Eosinophils (%) (Auto) 1.6 Basophils (%) (Auto) 0.4 Neutrophils # (Auto) 14.1 Lymphocytes # (Auto) 1.3 Monocytes # (Auto) 0.7 Eosinophils # (Auto) 0.3 Basophils # (Auto) 0.1 CBC Comment DIFF FINAL Differential Comment Prothrombin Time 52.8 12.8 Prothromb Time International Ratio 4.5 1.2 Activated Partial Thromboplast Time 39.2 Blood Urea Nitrogen 28 Creatinine 0.97 Random Glucose 164 Total Protein 6.8 Albumin 2.9 Calcium Level 9.6 Magnesium Level 1.8 Alkaline Phosphatase 131 Aspartate Amino Transf (AST/SGOT) 40 Alanine Aminotransferase (ALT/SGPT) 40 Total Bilirubin 1.0 Sodium Level 140 Potassium Level 4.3 Chloride Level 103 Carbon Dioxide Level 25.7 Anion Gap 11 Estimat Glomerular Filtration Rate 56 Total Creatine Kinase 578 Creatine Kinase MB 1.3 Creatine Kinase MB % 0.2 Troponin I LESS THAN 0.02 B-Type Natriuretic Peptide 171 Digoxin Level 0.7 Date/Time Source Procedure Growth Status 05/29/17 14:20 Blood Peripheral Aerobic Blood Culture Pending Received 05/29/17 14:20 Blood Peripheral Anaerobic Blood Culture Pending Received Result Diagram: 05/29/17 1200 05/29/17 1200 Imaging 05/29/17 CT scan head images reviewed by the undersigned. Agree with findings as noted below: Chest X-Ray 05/29/17 1112 Signed Impressions: Service Date/Time: Monday, May 29, 2017 17:56 - CONCLUSION: Mild right base atelectasis or consolidation. This is improved from the prior exam. The new right internal jugular central line is in good position. Yovani Blanchard MD Head CT 05/29/17 1200 Signed Impressions: Service Date/Time: Monday, May 29, 2017 13:18 - CONCLUSION: Parafalcine subdural hematoma small cortical hemorrhage on the right. There is no mass effect. Vic Romero MD FACR Assessment and Plan Assessment and Plan Impression: 1. Thin right tentorial subdural hematoma in patient with chronic atrial fibrillation on Coumadin. 2. Hypertension 3. History of dyslipidemia Recommendations: Findings have been discussed with patient Continue close neurologic checks in the [facility] Follow-up CT scan head Hold anticoagulation May mobilize out of bed and advance diet as tolerated from neurosurgery standpoint Guilherme Peterson MD May 29, 2017 20:08
[2017-05-29] MEDS: DOCUSATE SODIUM 50 MG/SENNA 8.6 MG TAB PO SCH (21:00)
[2017-05-29 23:00] VITALS: PULSE 102
[2017-05-29] MEDS: levETIRAcetam INJ 500 MG in SODIUM CHLORIDE 0.9% INJ 100 ML IV SCH (23:42)
[2017-05-29] MEDS: SODIUM CHLORIDE 0.9% FLUSH 10 ML FLUSH IV FLUSH SCH (23:43)
[2017-05-29] MEDS: ACETAMINOPHEN 325 MG TAB PO PRN (23:46)
[2017-05-29] MEDS: METOPROLOL TARTRATE 25 MG TAB PO SCH (23:47)
[2017-05-30] VITALS (12 sets, daily range): BP systolic 92–174; BP diastolic 46–81; PULSE 75–118; RESP 13–21; TEMP 98–98.8; O2SAT 95–100
[2017-05-30 00:34] LABS: INTERNATIONAL NORMALIZED RATIO 1.4 RATIO
[2017-05-30] MEDS: metroNIDAZOLE 500 MG INJ 100 ML IV SCH ×3 (02:15→18:03)
[2017-05-30] MEDS: SODIUM CHLOR 0.9% 1000 ML INJ 1,000 ML IV SCH ×2 (02:59→14:54)
[2017-05-30] MEDS: CHLORHEXIDINE GLUCONATE 2 % 1 PACK (2 CLOTHS) TOP SCH (04:00)
[2017-05-30 05:10] LABS: AUTOMATED NEUTROPHIL # 9.2 TH/MM3 (1.8-7.7); BASOPHIL # 0.1 TH/MM3 (0-0.2); BASOPHIL % 0.5 % (0.0-2.0); EOSINOPHIL # 0.2 TH/MM3 (0-0.4); EOSINOPHIL % 1.8 % (0.0-4.0); HEMATOCRIT 22.7 % (35.0-46.0); HEMO FLAGS DIFF FINAL; LYMPH % 4.8 % (9.0-44.0); LYMPHOCYTE # 0.5 TH/MM3 (1.0-4.8); MEAN CELL VOLUME 93.9 FL (80.0-100.0); MEAN CORPUSCULAR HEMOGLOBIN 30.9 PG (27.0-34.0); MONO % 5.6 % (0.0-8.0); NEUT % 87.3 % (16.0-70.0); PLATELET COUNT 183 TH/MM3 (150-450); RED BLOOD COUNT 2.41 MIL/MM3 (4.00-5.30); RED CELL DISTRIBUTION WIDTH 15.3 % (11.6-17.2); WHITE BLOOD COUNT 10.5 TH/MM3 (4.0-11.0)
[2017-05-30 05:34] LABS: APTT (PATIENT) 28.5 SEC (24.3-30.1); INTERNATIONAL NORMALIZED RATIO 1.6 RATIO; PROTHROMBIN TIME - PATIENT 17.5 SEC (9.8-11.6)
[2017-05-30 06:13] LABS: ALKALINE PHOSPHATASE 106 U/L (45-117); ALT (GPT) 31 U/L (10-53); ANION GAP 6 MEQ/L (5-15); AST (GOT) 31 U/L (15-37); BICARBONATE 26.9 MEQ/L (21.0-32.0); BLOOD UREA NITROGEN 33 MG/DL (7-18); CHLORIDE 106 MEQ/L (98-107); CREATINE KINASE 544 U/L (26-192); DIGOXIN 1.5 NG/ML (0.8-2.0); GLOMERULAR FILTRATION RATE 62 ML/MIN (>89); MAGNESIUM 1.6 MG/DL (1.5-2.5); POTASSIUM 4.4 MEQ/L (3.5-5.1); SODIUM (NA) 139 MEQ/L (136-145); TOTAL BILIRUBIN ADULT 0.7 MG/DL (0.2-1.0)
--- NOTE | 2017-05-30 06:22 | HHI.CCPN ---
Subjective Remarks/Hospital Course 76-year-old female. Date of admission 05/29/2017. Past medical history includes history of atrial fibrillation, hypertension, colovesicular fistula, chronic anticoagulation on warfarin. Patient reports that 2 days ago, she fell after she slipped on water onto the floor. Patient did hit her head at this time. Reports no loss of consciousness. Patient reports that she fell a second time on Thursday night, reports at that time, she fell in the bathroom and she made had a syncopal episode during that time. Patient reports that she was seen at an outside hospital and had " a full body scan" and was told that everything was okay. Patient returns to emergency room today as she appears weaker and has some dizziness. Daughter reports the patient had an episode of hypotension upon arrival of EMS. At this facility, patient was noted on CT head to have subdural hematoma/also noted to be in atrial fibrillation with rapid ventricular response. Patient received 1 L normal saline. Patient received K [facility] 2500, vitamin K 5 mg. She received 1 dose Levaquin for right lower lobe pneumonia. Neurosurgery was consulted. We are asked to admit the patient. Patient remained in A. fib with RVR. Central was placed and started on Blayne- Synephrine/Cardizem for rate control. Initial troponin negative. Denies chest pain.. Cardiology consultation. SUBJECTIVE: 05/30: Remains on low-dose Blayne-Synephrine 40 mg per minute and diltiazem drip at 5 mg an hour. Awake and alert. A.m. CT brain pending. Objective Vital Signs Date Time Temp Pulse Resp B/P (MAP) Pulse Ox O2 Delivery O2 Flow Rate FiO2 05/30/17 04:01 98.0 75 15 92/46 (61) 100 05/29/17 19:00 Nasal Cannula 2.00 Result Diagram: 05/30/17 0445 05/30/17 0445 Other Results Microbiology Date/Time Source Procedure Growth Status 05/29/17 14:20 Blood Peripheral Aerobic Blood Culture Pending Received 05/29/17 14:20 Blood Peripheral Anaerobic Blood Culture Pending Received Imaging Last Impressions Chest X-Ray 05/29/17 4344 Signed Impressions: Service Date/Time: Monday, May 29, 2017 17:56 - CONCLUSION: Mild right base atelectasis or consolidation. This is improved from the prior exam. The new right internal jugular central line is in good position. Yovani Blanchard MD Head CT 05/29/17 1200 Signed Impressions: Service Date/Time: Monday, May 29, 2017 13:18 - CONCLUSION: Parafalcine subdural hematoma small cortical hemorrhage on the right. There is no mass effect. Vic Romero MD FACR Objective Remarks GENERAL: 76 year old female, critically ill currently resting in bed SKIN: Warm and dry. Unstageable sacral decubitus ulcer HEAD: Ecchymosis right forehead Normocephalic. EYES: Pupils equal and round about 3 mm bilaterally and reactive. No scleral icterus. No injection or drainage. ENT: No nasal bleeding or discharge. Mucous membranes pink and moist. NECK: Trachea midline. No JVD. Right IJ is clean dry and intact CARDIOVASCULAR: Tachycardia, IR. S1, S2. No S4 without murmur RESPIRATORY: Few fine crackles crackles appreciated in right lower lobe. No end expiratory wheeze GASTROINTESTINAL: Abdomen soft, non-tender, nondistended. Hypoactive bowel sounds appreciated MUSCULOSKELETAL: Extremities without significant peripheral edema. Right knee with obvious bruising/ecchymosis NEUROLOGICAL: Awake and alert. No obvious cranial nerve deficits. Motor grossly within normal limits. Five out of 5 muscle strength in the arms and legs. Normal speech. A/P Assessment and Plan Neuro/Psych: Right tentorium subdural hematoma/small cortical hemorrhage right parietal field /acute Depression Cataracts/IOC CT brain 05/29 revealed small parafalcine posterior subdural hematoma, involving the right tentorium, with a small cortical hemorrhage involving the right parietal deshpande Dr. Peterson/neurosurgery consulted Plan for repeat CT brain in a.m. 05/30 - results unchanged Goal keep systolic blood pressure less than 140-150 Levetiracetam 500 mill grams IV twice a day 7 day seizure prophylaxis Keep head of bed at 30 Neurochecks Continue duloxetine 30 mg by mouth daily for depression CV: Severe sepsis - secondary right lower lobe pneumonia rule out UTI A. fib with RVR Hypertension Dyslipidemia Digoxin level 0.7. Received 0.25 mill grams IV 1 yesterday. Currently at 0.125 mg daily Recheck digoxin level in a.m. 1.5 Continue metoprolol 25 mg by mouth twice a day/home medication Holding diltiazem sustained-release 180 mg daily and losartan 100 mg by mouth daily. As needed labetalol, clevidipine drip to maintain systolic blood pressure less than 140-150 Started on Blayne-Synephrine at 20 per minute and diltiazem drip for rate control likely sepsis Resp: History of JACOB? Nasal cannula to maintain saturations greater than equal to 92% Incentive spirometry while awake Chest x-ray reveals right lower lobe infiltrate possibly pneumonia. See ID Albuterol nebulizers every 2 hours. Dyspnea GI: Gastroesophageal reflux disease History of lap-assisted loop colostomy with revision secondary to colo vesicular fistula by Dr. Wetzel Hiatal hernia IBS History of splenic infarction Patient is on a regular diet Pantoprazole for GI prophylaxis Docusate sodium/senna 1 tablet twice a day for bowel regimen Ostomy cares : Jenkins catheter if indicated for accurate I's and O's in a critically ill patient Endo: Hyperglycemia of critical illness Sliding-scale insulin with Accu-Cheks to maintain euglycemia/low regimen with Accu-Cheks every 6 hours Renal: Creatinine currently within normal limits Monitor urine output Accurate I's and O's Heme: Leukocytosis Normocytic anemia Chronic warfarin use History of right femoral artery DVT - embolectomy by Dr. Mo at [facility] Patient received prothrombin complex concentrate with 35 units per kilogram IV 1 now. Maximum 3500 units. Will give with vitamin K 1 now. Recheck INR 30 minutes after infusion and every 6 hours 24 hours per protocol Monitor CBC daily. Follow trends. Recheck coags in AM. Transfuse 1 unit PRBCs and 1 FFP today. Recheck INR in a.m. ID: Right lower lobe pneumonia Noted allergy to Piperacillin/tazobactam with rash Using vancomycin, Azactam and Flagyl currently. Noted increased risks of seizures/elevated INR with elevated warfarin Receive 1 dose of levofloxacin in ED Blood cultures 2, UA pending FEN: Replace electrolytes as clinically indicated On scheduled potassium 10 mEq by mouth daily at home due to chronic furosemide use MSK: History of sacral decubitus ulcer stage IV healed Wound care/PT evaluate and treat Access - Utilize peripheral IV. Central line if indicated Recheck right knee x-ray and hip x-ray due to pain. Had negative imaging at [facility] 2 days ago including spine imaging which was negative self-reported patient Prophylaxis - GI - pantoprazole - DVT - SCD/pharmacological prophylaxis contraindicated with acute subdural hematoma Level II follow-up Stefan Garcia MD May 30, 2017 06:22
[2017-05-30 06:44] LABS: CKMB 0.7 NG/ML (0.5-3.6)
[2017-05-30] MEDS: MAGNESIUM SULFATE 1 GM PREMIX 100 ML IV SCH ×2 (07:30→08:23)
[2017-05-30] MEDS: AZTREONAM INJ 1,000 MG in SODIUM CHLORIDE 0.9% INJ 100 ML IV SCH ×2 (08:22→15:29)
[2017-05-30] MEDS: levETIRAcetam INJ 500 MG in SODIUM CHLORIDE 0.9% INJ 100 ML IV SCH ×2 (08:22→21:18)
[2017-05-30] MEDS: MAGNESIUM OXIDE 400 MG TAB PO SCH ×2 (08:23→21:17)
[2017-05-30] MEDS: DULoxetine HCl DR 30 MG CAP PO SCH (08:24)
[2017-05-30] MEDS: ACETAMINOPHEN 325 MG TAB PO PRN (08:24)
[2017-05-30] MEDS: METOPROLOL TARTRATE 25 MG TAB PO SCH ×2 (08:24→21:17)
[2017-05-30] MEDS: DIGOXIN 0.125 MG TAB PO SCH (08:24)
[2017-05-30] MEDS: DOCUSATE SODIUM 50 MG/SENNA 8.6 MG TAB PO SCH ×2 (08:24→21:17)
[2017-05-30] MEDS: PANTOPRAZOLE SOD 40 MG DELAYED RELEASE TAB PO SCH (08:24)
[2017-05-30] MEDS: SODIUM CHLORIDE 0.9% FLUSH 10 ML FLUSH IV FLUSH SCH ×2 (09:00→21:20)
[2017-05-30] MEDS ORDERED: SODIUM CHLORIDE 0.9% FLUSH 10 ML FLUSH IVF SCH (09:00)
--- NOTE | 2017-05-30 09:40 | RADRPT ---
EXAM DATE/TIME: 05/30/2017 09:21 [facility] COMPARISON: CT BRAIN W/O CONTRAST, May 29, 2017, 13:18. INDICATIONS : Dural hematoma. RADIATION DOSE: 35.29 CTDIvol (mGy) MEDICAL HISTORY : Hypertension. SURGICAL HISTORY : None. ENCOUNTER: Subsequent ACUITY: 1 day PAIN SCALE: 5/10 LOCATION: Right parietal TECHNIQUE: Multiple contiguous axial images were obtained of the head. Using automated exposure control and adj ustment of the mA and/or kV according to patient size, radiation dose was kept as low as reasonably a chievable to obtain optimal diagnostic quality images. DICOM format image data is available electro nically for review and comparison. FINDINGS: High attenuation along the right tentorium cerebelli and inter hemispheric fissure characteristic of subdural hemorrhage is again noted and not significantly changed. There are no signs of acute infarct ion or mass. No obvious fractures. There is also trace subdural hemorrhage along the high right front al convexity unchanged. CONCLUSION: Stable subdural hemorrhage. Andre Flores MD on May 30, 2017 at 9:37 Board Certified Radiologist. This report was verified electronically.
--- NOTE | 2017-05-30 10:00 | EKG ---
Date Performed: 05/29/2017 Time Performed: 12:07:24 PTAGE: 76 years EKG: ATRIAL FIBRILLATION WITH RAPID VENTRICULAR RESPONSE NONSPECIFIC T-WAVE ABNORMALITY ABNORMAL RHYTHM ECG PREVIOUS TRACING : 04/30/2016 11.25 DOCTOR: Lonnie Moses Interpretating Date/Time 05/30/2017 09:59:11
[2017-05-30] MEDS ORDERED: ACETAMINOPHEN/HYDROcodone 325 MG/5 MG TAB PO PRN (14:00)
[2017-05-30] MEDS: ACETAMINOPHEN/HYDROcodone 325 MG/5 MG TAB PO PRN ×2 (14:43→18:35)
[2017-05-30 14:59] LABS: INTERNATIONAL NORMALIZED RATIO 1.4 RATIO; PROTHROMBIN TIME - PATIENT 16.1 SEC (9.8-11.6)
--- NOTE | 2017-05-30 17:20 | RADRPT ---
EXAM DATE/TIME: 05/30/2017 17:10 [facility] COMPARISON: No previous studies available for comparison. INDICATIONS : Fall days ago. Right sided pelvic pain. MEDICAL HISTORY : None. SURGICAL HISTORY : None. ENCOUNTER: Initial ACUITY: 3 days PAIN SCORE: 7/10 LOCATION: Bilateral pelvis FINDINGS: A single frontal view of the pelvis demonstrates no evidence of fracture. The bony pelvic ring is in tact. Bony mineralization is normal. The soft tissues are intact. CONCLUSION: Limited by body habitus. I don't see definite fracture. If patient remains symptoma tic CT scan is the viable alternative given the patient's size. Vic Romero MD FACR on May 30, 2017 at 17:17 Board Certified Radiologist. This report was verified electronically.
--- NOTE | 2017-05-30 17:34 | RADRPT ---
EXAM DATE/TIME: 05/30/2017 17:05 [facility] COMPARISON: No previous studies available for comparison. INDICATIONS : Fall days ago. Right knee pain. MEDICAL HISTORY : None. SURGICAL HISTORY : None. ENCOUNTER: Initial ACUITY: 3 days PAIN SCORE: 7/10 LOCATION: Right lateral FINDINGS: AP and lateral views of the knee following arthroplasty reveals a prosthesis in anatomic alignment. F racture is not appreciated. CONCLUSION: Status post total knee arthroplasty. There is no fracture following fall. Vic Romero MD FACR on May 30, 2017 at 17:32 Board Certified Radiologist. This report was verified electronically.
--- NOTE | 2017-05-30 18:00 | MB ---
cc: DEDE BECERRIL M.D. DATE OF CONSULTATION: 05/30/2017. REASON FOR CONSULTATION: Electrophysiology study consultation for subdural hematoma and atrial fibrillation. HISTORY OF PRESENT ILLNESS: Mrs. Padilla is a 76-year-old female with atrial fibrillation and previous hospitalization due to sepsis who went into rehab with atrial fibrillation with fast ventricular response, multiple hospitalizations, heart rate currently controlled, was getting back to her normal activities when had a fall a couple of days ago. She was brought to the emergency room. She was found to have a subdural hematoma. There is no gross motor and no sensory deficit. Anticoagulation was discontinued. She is still in atrial fibrillation. I was consulted for further evaluation and management. The chart was reviewed. The patient was evaluated. The case was discussed extensively with the patient and her family. ALLERGIES: 1. CODEINE. 2. PIPERACILLIN. 3. TAZOBACTAM. SOCIAL HISTORY: Negative for smoking and drinking. FAMILY HISTORY: Noncontributory to her current medical condition. MEDICATIONS: 1. Cartia. 2. Potassium. 3. Metoprolol. 4. Lasix. 5. Digoxin. 6. Coumadin was discontinued. 7. Losartan. 8. Duloxetine. REVIEW OF SYSTEMS: She refers feeling better. No chest pain. No dizziness. No headache. PHYSICAL EXAMINATION: GENERAL: Alert, fully oriented, follows verbal indications. VITAL SIGNS: Blood pressure this morning was 114/65. Her last blood pressure was 124/81. Respiratory rate 18. LUNGS: Ventilated. CARDIOVASCULAR: S1-S2. Irregular. No gallop. No murmur. ABDOMEN: Abdomen soft, obese, no mass. No bruits. EXTREMITIES: No edema. NEUROLOGIC: As mentioned before, no gross motor or sensory deficit. EKGS: Electrocardiogram shows atrial fibrillation with diffuse S-T changes. LABS: Hemoglobin is 7.5. White blood cell count 10.5. Hemoglobin was 10.7 yesterday on hospitalization. Potassium 4.4. Creatinine 0.85. Troponin less than 0.02. Digoxin level 1.5 today and yesterday it was 0.7. ASSESSMENT AND RECOMMENDATIONS: Mrs. Padilla's condition is stable. Coumadin was discontinued. She did receive vitamin K in the emergency room. The issue at this point is how to protect Mrs. Padilla against the risk of stroke. She cannot be on anticoagulation right now but at the same time, her [id number] score is very high. We may have to explore the possibility of ____ but the patient has to be cleared first by neurosurgery and then ____ will be considered maybe six to eight weeks later. I will follow her during the hospitalization. Further decision about the management by neurosurgery and the team. MD JACINTA Montes De Oca/ABRIL /2:50 PM /5:50 PM
[2017-05-30] MEDS: VANCOMYCIN INJ 1,250 MG in SODIUM CHLOR 0.9% 250 ML INJ 250 ML IV SCH (18:03)
--- NOTE | 2017-05-30 19:48 | HHI.NSPN ---
History Chief Complaint: persistent headache Interval History History of Present Illness 76-year-old female with a history of atrial fibrillation, on Coumadin, presented to the emergency room today with complaint of generalized weakness following a fall 2, 2 days ago without loss of consciousness. She was seen at an outside hospital emergency room and indicates that she has scan with no significant abnormalities. She came back to the emergency room today due to persistent weakness and dizziness. On initial CT scan imaging in the emergency room she was noted to have a small subdural hematoma. She was given [facility]. and vitamin K as well as a 1 L normal saline infusion due to hypotension. 05/30/2017: Neurologic exam remained stable. Mild lethargy. Exam Results Vital Signs Date Time Temp Pulse Resp B/P (MAP) Pulse Ox O2 Delivery O2 Flow Rate FiO2 05/30/17 16:55 95 21 05/30/17 16:00 98.5 86 21 107/51 (69) 05/30/17 07:00 Nasal Cannula 2.00 Intake and Output 05/30/17 05/30/17 05/31/17 08:00 16:00 00:00 Intake Total 1674 ml 400 ml 1092 ml Output Total 550 ml 0 ml Balance 1124 ml 400 ml 1092 ml Physical Examination Respirations clear to auscultation Cardiac regular without murmur No extremity edema Mild lethargy. Speech is slow, mild dysarthria. Pupils are 2-3 mm minimally reactive. Extraocular movements intact Facial motor movement symmetric Sensation intact by touch all extremities Strength normal flexion and extension groups all extremities Lab, Micro, Other Results 05/30/2017 CT scan head images reviewed by the undersigned. Stable small right tentorial subdural hematoma without significant mass effect. Head CT 05/30/17 0600 Signed Impressions: Service Date/Time: Tuesday, May 30, 2017 09:21 - CONCLUSION: Stable subdural hemorrhage. Andre Flores MD Pelvis X-Ray 05/30/17 0000 Signed Impressions: Service Date/Time: Tuesday, May 30, 2017 17:10 - CONCLUSION: Limited by body habitus. I don't see definite fracture. If patient remains symptomatic CT scan is the viable alternative given the patient's size. Vic Romero MD FACR Knee X-Ray 05/30/17 0000 Signed Impressions: Service Date/Time: Tuesday, May 30, 2017 17:05 - CONCLUSION: Status post total knee arthroplasty. There is no fracture following fall. Vic Romero MD Medical Decision Making Impression and Plan Impression: 1. Stable neurologic exam following medical ring injury with mild right tentorial subdural hematoma without significant mass effect. Plan: Findings were discussed with the family in the patient's room Continue ISC observation and neurologic checks Mobilize out of bed as tolerated Bedside as tolerated Continue therapy Non chemical DVT prophylaxis Guilherme Peterson MD May 30, 2017 19:48
[2017-05-31] VITALS (12 sets, daily range): BP systolic 90–128; BP diastolic 47–60; PULSE 76–90; RESP 15–22; TEMP 97.7–98.8; O2SAT 95–100
[2017-05-31] MEDS: AZTREONAM INJ 1,000 MG in SODIUM CHLORIDE 0.9% INJ 100 ML IV SCH ×3 (01:45→14:58)
[2017-05-31] MEDS: metroNIDAZOLE 500 MG INJ 100 ML IV SCH ×3 (01:46→17:09)
[2017-05-31] MEDS: SODIUM CHLOR 0.9% 1000 ML INJ 1,000 ML IV SCH ×2 (02:49→14:44)
[2017-05-31] MEDS: CHLORHEXIDINE GLUCONATE 2 % 1 PACK (2 CLOTHS) TOP SCH (04:00)
[2017-05-31 04:58] LABS: AUTOMATED NEUTROPHIL # 8.7 TH/MM3 (1.8-7.7); BASOPHIL % 0.2 % (0.0-2.0); EOSINOPHIL # 0.3 TH/MM3 (0-0.4); EOSINOPHIL % 2.8 % (0.0-4.0); HEMATOCRIT 22.7 % (35.0-46.0); HEMO FLAGS DIFF FINAL; LYMPH % 1.8 % (9.0-44.0); LYMPHOCYTE # 0.2 TH/MM3 (1.0-4.8); MEAN CELL VOLUME 93.3 FL (80.0-100.0); MEAN CORPUSCULAR HEMOGLOBIN 31.1 PG (27.0-34.0); MEAN CORPUSCULAR HGB CONC 33.3 % (32.0-36.0); MONO % 5.3 % (0.0-8.0); NEUT % 89.9 % (16.0-70.0); PLATELET COUNT 139 TH/MM3 (150-450); RED BLOOD COUNT 2.43 MIL/MM3 (4.00-5.30); RED CELL DISTRIBUTION WIDTH 14.5 % (11.6-17.2); WHITE BLOOD COUNT 9.6 TH/MM3 (4.0-11.0)
[2017-05-31 05:05] LABS: INTERNATIONAL NORMALIZED RATIO 1.4 RATIO; PROTHROMBIN TIME - PATIENT 15.4 SEC (9.8-11.6)
[2017-05-31 05:09] LABS: BICARBONATE 25.9 MEQ/L (21.0-32.0); MAGNESIUM 1.7 MG/DL (1.5-2.5); POTASSIUM 4.1 MEQ/L (3.5-5.1)
[2017-05-31 05:30] LABS: DIGOXIN 1.1 NG/ML (0.8-2.0)
[2017-05-31] MEDS: ACETAMINOPHEN/HYDROcodone 325 MG/5 MG TAB PO PRN (06:26)
[2017-05-31] MEDS ORDERED: FUROSEMIDE 20 MG/2 ML VIAL IV PUSH SCH (06:45)
[2017-05-31] MEDS ORDERED: MAGNESIUM SULFATE 1 GM PREMIX 100 ML IV SCH (06:45)
[2017-05-31] MEDS ORDERED: POTASSIUM CHLORIDE 10 MEQ CONTROLLED RELEASE TAB PO ONE (06:45)
--- NOTE | 2017-05-31 06:50 | HHI.CCPN ---
Subjective Remarks/Hospital Course 76-year-old female. Date of admission 05/29/2017. Past medical history includes history of atrial fibrillation, hypertension, colovesicular fistula, chronic anticoagulation on warfarin. Patient reports that 2 days ago, she fell after she slipped on water onto the floor. Patient did hit her head at this time. Reports no loss of consciousness. Patient reports that she fell a second time on Thursday night, reports at that time, she fell in the bathroom and she made had a syncopal episode during that time. Patient reports that she was seen at an outside hospital and had " a full body scan" and was told that everything was okay. Patient returns to emergency room today as she appears weaker and has some dizziness. Daughter reports the patient had an episode of hypotension upon arrival of EMS. At this facility, patient was noted on CT head to have subdural hematoma/also noted to be in atrial fibrillation with rapid ventricular response. Patient received 1 L normal saline. Patient received K Centra 2500, vitamin K 5 mg. She received 1 dose Levaquin for right lower lobe pneumonia. Neurosurgery was consulted. We are asked to admit the patient. Patient remained in A. fib with RVR. Central was placed and started on Blayne- Synephrine/Cardizem for rate control. Initial troponin negative. Denies chest pain.. Cardiology consultation. 05/30: Remains on low-dose Blayne-Synephrine 40 mg per minute and diltiazem drip at 5 mg an hour. Awake and alert. A.m. CT brain pending. SUBJECTIVE: 05/31: Afebrile. Status post 1 PRBC and 1 FFP yesterday. Imaging of pelvis and knee negative. Noted had complete imaging at [facility] recently status post fall. Records still not obtained.. Off all vasopressors. Objective Vital Signs Date Time Temp Pulse Resp B/P (MAP) Pulse Ox O2 Delivery O2 Flow Rate FiO2 05/31/17 00:00 98.8 87 21 96/51 (66) 100 05/30/17 21:00 Nasal Cannula 2.00 05/30/17 16:55 21 Result Diagram: 05/31/17 0400 05/31/17 0400 Other Results Microbiology Date/Time Source Procedure Growth Status 05/29/17 14:20 Blood Peripheral Aerobic Blood Culture - Preliminary NO GROWTH IN 1 DAY Resulted 05/29/17 14:20 Blood Peripheral Anaerobic Blood Culture - Preliminary NO GROWTH IN 1 DAY Resulted Imaging Last Impressions Head CT 05/30/17 0600 Signed Impressions: Service Date/Time: Tuesday, May 30, 2017 09:21 - CONCLUSION: Stable subdural hemorrhage. Andre Flores MD Pelvis X-Ray 05/30/17 0000 Signed Impressions: Service Date/Time: Tuesday, May 30, 2017 17:10 - CONCLUSION: Limited by body habitus. I don't see definite fracture. If patient remains symptomatic CT scan is the viable alternative given the patient's size. Vic Romero MD FACR Knee X-Ray 05/30/17 0000 Signed Impressions: Service Date/Time: Tuesday, May 30, 2017 17:05 - CONCLUSION: Status post total knee arthroplasty. There is no fracture following fall. Vic Romero MD Chest X-Ray 05/29/17 1752 Signed Impressions: Service Date/Time: Monday, May 29, 2017 17:56 - CONCLUSION: Mild right base atelectasis or consolidation. This is improved from the prior exam. The new right internal jugular central line is in good position. Yovani Blnachard MD Objective Remarks GENERAL: 76 year old female, critically ill currently resting in bed SKIN: Warm and dry. Unstageable sacral decubitus ulcer HEAD: Ecchymosis right forehead otherwise Normocephalic. EYES: Pupils equal and round about 3 mm bilaterally and reactive. No scleral icterus. No injection or drainage. ENT: No nasal bleeding or discharge. Mucous membranes pink and moist. NECK: Trachea midline. No JVD. Right IJ is clean dry and intact CARDIOVASCULAR: IRR. S1, S2. No S4 without murmur RESPIRATORY: Few fine crackles crackles appreciated in right lower lobe. No end expiratory wheeze GASTROINTESTINAL: Abdomen soft, non-tender, nondistended. Hypoactive bowel sounds appreciated MUSCULOSKELETAL: Extremities without significant peripheral edema. Right knee with obvious bruising/ecchymosis dyslipidemia. X-rays negative NEUROLOGICAL: Awake and alert. No obvious cranial nerve deficits. Motor grossly within normal limits. Five out of 5 muscle strength in the arms and legs were expresses generalized weakness. Normal speech. A/P Assessment and Plan Neuro/Psych: Right tentorium subdural hematoma/small cortical hemorrhage right parietal field /acute Depression Cataracts/IOC CT brain 05/29 revealed small parafalcine posterior subdural hematoma, involving the right tentorium, with a small cortical hemorrhage involving the right parietal deshpande Dr. Peterson/neurosurgery consulted Plan for repeat CT brain in a.m. 05/30 - results unchanged Goal keep systolic blood pressure less than 140-150 Levetiracetam 500 mill grams IV twice a day 7 day seizure prophylaxis Keep head of bed at 30 Neurochecks Continue duloxetine 30 mg by mouth daily for depression CV: Severe sepsis - secondary right lower lobe pneumonia rule out UTI A. fib with RVR CHAD2-VASC 5 Hypertension Dyslipidemia Digoxin level 0.7. Received 0.25 mill grams IV 1 yesterday. Currently at 0.125 mg daily Recheck digoxin level in a.m. 1.1 Continue metoprolol 25 mg by mouth twice a day/home medication Holding diltiazem sustained-release 180 mg daily and losartan 100 mg by mouth daily. As needed labetalol, clevidipine drip to maintain systolic blood pressure less than 140-150 Currently off Blayne-Synephrine at 20 per minute Start Cardizem 30 mg by mouth 4 times a day Cardiology/Dr. Matos following Anticoagulation when okay with neurosurgery. ChadS 2 score for atrial fibrillation stroke risk is high obviously Resp: History of JACOB? Nasal cannula to maintain saturations greater than equal to 92% Incentive spirometry while awake Chest x-ray reveals right lower lobe infiltrate possibly pneumonia. See ID Albuterol nebulizers every 2 hours. Dyspnea GI: Gastroesophageal reflux disease History of lap-assisted loop colostomy with revision secondary to colo vesicular fistula by Dr. Wetzel Hiatal hernia IBS History of splenic infarction Patient is on a regular diet Pantoprazole for GI prophylaxis Docusate sodium/senna 1 tablet twice a day for bowel regimen Ostomy cares : Jenkins catheter if indicated for accurate I's and O's in a critically ill patient Endo: Hyperglycemia of critical illness Sliding-scale insulin with Accu-Cheks to maintain euglycemia/low regimen with Accu-Cheks every 6 hours Renal: Creatinine currently within normal limits Monitor urine output Accurate I's and O's Heme: Leukocytosis Normocytic anemia Chronic warfarin use History of right femoral artery DVT - embolectomy by Dr. Mo at [facility] Patient received prothrombin complex concentrate with 35 units per kilogram IV 1 now. Maximum 3500 units. Will give with vitamin K 1 now. Recheck INR 30 minutes after infusion and every 6 hours 24 hours per protocol Monitor CBC daily. Follow trends. Recheck coags in AM. Transfuse 1 unit PRBCs and 1 FFP today. Recheck INR in a.m. ID: Right lower lobe pneumonia Noted allergy to Piperacillin/tazobactam with rash Using vancomycin, Azactam and Flagyl currently. Noted increased risks of seizures/elevated INR with elevated warfarin Receive 1 dose of levofloxacin in ED Blood cultures 2, UA pending FEN: Replace electrolytes as clinically indicated On scheduled potassium 10 mEq by mouth daily at home due to chronic furosemide use MSK: History of sacral decubitus ulcer stage IV healed Wound care/PT evaluate and treat X-ray right knee negative. Will check pelvis CT as the complaining of pain. Obtain records from [facility] where she had complete imaging one day prior to this admission. Access - Utilize peripheral IV. Central line if indicated Prophylaxis - GI - pantoprazole - DVT - SCD/pharmacological prophylaxis contraindicated with acute subdural hematoma and resume when okay with neurosurgery Level II follow-up Patient appears stable from a critical care medicine standpoint. Assign care to hospitalist in a.m. 06/01 Stefan Garcia MD May 31, 2017 06:50
[2017-05-31] MEDS ORDERED: DIATRIZOATE MEGLUM/DIATRIZOATE SOD 9 ML CUP PO ONE (07:30)
[2017-05-31] MEDS: DOCUSATE SODIUM 50 MG/SENNA 8.6 MG TAB PO SCH ×2 (07:49→20:47)
[2017-05-31] MEDS: DILTIAZEM HCL 30 MG TAB PO SCH ×4 (07:50→20:47)
[2017-05-31] MEDS: PANTOPRAZOLE SOD 40 MG DELAYED RELEASE TAB PO SCH (07:50)
[2017-05-31] MEDS: MAGNESIUM OXIDE 400 MG TAB PO SCH ×2 (07:50→20:47)
[2017-05-31] MEDS: DULoxetine HCl DR 30 MG CAP PO SCH (07:50)
[2017-05-31] MEDS: DIGOXIN 0.125 MG TAB PO SCH (07:50)
[2017-05-31] MEDS: levETIRAcetam INJ 500 MG in SODIUM CHLORIDE 0.9% INJ 100 ML IV SCH ×2 (07:51→20:47)
[2017-05-31] MEDS: METOPROLOL TARTRATE 25 MG TAB PO SCH ×2 (07:51→20:47)
[2017-05-31] MEDS: SODIUM CHLORIDE 0.9% FLUSH 10 ML FLUSH IV FLUSH SCH ×2 (09:00→20:48)
--- NOTE | 2017-05-31 10:29 | RADRPT ---
EXAM DATE/TIME: 05/31/2017 09:52 [place] COMPARISON: PELVIS AP ONLY, May 30, 2017, 17:10. INDICATIONS : Post fall, evaluate for fracture of pelvis. ORAL CONTRAST: No oral contrast ingested. RADIATION DOSE: 16.75 CTDIvol (mGy) MEDICAL HISTORY : Cardiovascular disease. Hypertension. Diverticulitis. SURGICAL HISTORY : None. ENCOUNTER: Initial ACUITY: 1 day PAIN SCALE: 5/10 LOCATION: pelvis TECHNIQUE: Volumetric scanning of the pelvis was performed. Using automated exposure control and adjustment of the mA and/or kV according to patient size, radiation dose was kept as low as reasonably achievable t o obtain optimal diagnostic quality images. DICOM format image data is available electronically for review and comparison. FINDINGS: The right iliopsoas musculature is enlarged and increased attenuation suggesting a possible intramusc ular hematoma. There is hemorrhage seen in the right lower quadrant and a moderate amount of free flu id is noted. The urinary bladder, uterus and adnexa are unremarkable. There is presacral edema identi fied. Atherosclerotic calcification of the iliac vessels are identified. Bilateral SI sclerosis is se en. A fracture is not visualized. There are degenerative changes of the hips and lower lumbar spine. CONCLUSION: No fractures are seen. The right iliopsoas muscle is slightly increased in size and density suggesting possible hemorrhage. There is also intermediate density fluid in this region sugg esting a small amount of hemorrhage. Andre Flores MD on May 31, 2017 at 10:24 Board Certified Radiologist. This report was verified electronically.
[2017-05-31] MEDS: ACETAMINOPHEN 325 MG TAB PO PRN (14:58)
[2017-05-31] MEDS ORDERED: SODIUM PHOSPHATE INJ 15 MMOL in SODIUM CHLORIDE 0.9% INJ 150 ML IV ONE (15:00)
--- NOTE | 2017-05-31 15:26 | HHI.PR ---
Subjective Remarks Feeling ok Objective Vital Signs Date Time Temp Pulse Resp B/P (MAP) Pulse Ox O2 Delivery O2 Flow Rate FiO2 05/31/17 12:00 98.3 84 20 113/56 (75) 99 05/31/17 08:16 97 Nasal Cannula 2.00 05/31/17 08:00 98.1 90 15 90/52 (65) 97 05/31/17 07:00 88 05/31/17 07:00 97 Room Air 05/31/17 04:00 98.6 87 22 95/47 (63) 100 05/31/17 00:00 98.8 87 21 96/51 (66) 100 05/30/17 23:00 99 05/30/17 23:00 99 05/30/17 21:35 15 05/30/17 21:00 100 Nasal Cannula 2.00 05/30/17 20:00 98.8 118 15 97/55 (69) 100 05/30/17 19:00 98 Nasal Cannula 2.00 05/30/17 16:55 95 21 05/30/17 16:00 98.5 86 21 107/51 (69) 97 05/30/17 15:31 98 124/54 05/30/17 15:30 75 124/54 I/O 05/30/17 05/30/17 05/30/17 05/31/17 05/31/17 05/31/17 07:00 15:00 23:00 07:00 15:00 23:00 Intake Total 1674 ml 591 ml 1192 ml 1386 ml 1168 ml Output Total 550 ml 0 ml 0 ml Balance 1124 ml 591 ml 1192 ml 1386 ml 1168 ml Intake IV Total 1674 ml 300 ml 1192 ml 1386 ml Packed Cells 250 ml FFP 291 ml 318 ml Blood Product IV Normal Saline Flush 600 ml Output Urine Total 550 ml Stool Total 0 ml 0 ml 0 ml # Voids 3 4 Result Diagram: 05/31/17 1455 05/31/17 0400 Imaging Alert, fully oriented, in bed Lungs: ventilated Heart: S1, S2 irregular, PERRY I? Abdomen: soft, no mass Ext: no edema Last Impressions Pelvis CT 05/31/17 0000 Signed Impressions: Service Date/Time: Wednesday, May 31, 2017 09:52 - CONCLUSION: No fractures are seen. The right iliopsoas muscle is slightly increased in size and density suggesting possible hemorrhage. There is also intermediate density fluid in this region suggesting a small amount of hemorrhage. Andre Flores MD Head CT 05/30/17 0600 Signed Impressions: Service Date/Time: Tuesday, May 30, 2017 09:21 - CONCLUSION: Stable subdural hemorrhage. Andre Flores MD Pelvis X-Ray 05/30/17 0000 Signed Impressions: Service Date/Time: Tuesday, May 30, 2017 17:10 - CONCLUSION: Limited by body habitus. I don't see definite fracture. If patient remains symptomatic CT scan is the viable alternative given the patient's size. Vic Romero MD FACR Knee X-Ray 05/30/17 0000 Signed Impressions: Service Date/Time: Tuesday, May 30, 2017 17:05 - CONCLUSION: Status post total knee arthroplasty. There is no fracture following fall. Vic Romero MD Chest X-Ray 05/29/17 1752 Signed Impressions: Service Date/Time: Monday, May 29, 2017 17:56 - CONCLUSION: Mild right base atelectasis or consolidation. This is improved from the prior exam. The new right internal jugular central line is in good position. Yovani Blanchard MD Current Medications Medications (Trade) Dose Ordered Sig/Lucina Route Start Time Stop Time Status Last Admin Sodium Chloride 1,000 ml @ 84 mls/hr [id number] IV 05/29/17 15:04 05/31/17 14:44 (NS Flush) 2 ml UNSCH PRN IV FLUSH 05/29/17 15:15 (NS Flush) 2 ml BID IV FLUSH 05/29/17 21:00 05/31/17 09:00 (Tylenol) 650 mg Q6H PRN PO 05/29/17 15:15 05/31/17 14:58 (Protonix) 40 mg DAILY PO 05/30/17 09:00 05/31/17 07:50 (Zofran Inj) 4 mg Q6H PRN IV 05/29/17 15:15 (Albuterol Neb) 2.5 mg Q2HR NEB PRN INH 05/29/17 15:15 Miscellaneous Information 1 Q361D XX 05/29/17 15:15 (Chlorhexidine 2% Cloth) 3 pack Taper DAILY@04 TOP 05/30/17 04:00 05/26/18 03:59 05/31/17 04:00 (Chlorhexidine 2% Cloth) 3 pack UNSCH PRN TOP 05/29/17 15:15 (Roxann-Colace) 1 tab BID PO 05/29/17 21:00 05/31/17 07:49 (Milk Of Magnesia Liq) 30 ml Q12H PRN PO 05/29/17 15:15 (Senokot) 17.2 mg Q12H PRN PO 05/29/17 15:15 (Dulcolax Supp) 10 mg DAILY PRN RECTAL 05/29/17 15:15 (Lactulose Liq) 30 ml DAILY PRN PO 05/29/17 15:15 Levetriacetam 500 mg/Sodium Chloride 105 ml @ 420 mls/hr Q12HR IV 05/29/17 21:00 06/05/17 20:59 05/31/17 07:51 (Trandate Inj) 10 mg Q1H PRN IV PUSH 05/29/17 15:15 Clevidipine 50 ml @ 2 mls/hr TITRATE PRN IV 05/29/17 15:15 (Lanoxin) 0.125 mg DAILY PO 05/30/17 09:00 05/31/17 07:50 (Cymbalta Dr) 30 mg DAILY PO 05/30/17 09:00 05/31/17 07:50 (Lopressor) 25 mg BID PO 05/29/17 21:00 05/31/17 07:51 Pharmacy Profile Note 0 ml @ 0 mls/hr UNSCH OTHER 05/29/17 15:45 Aztreonam 1000 mg/ Sodium Chloride 100 ml @ 200 mls/hr Q8H IV 05/29/17 16:00 05/31/17 14:58 Metronidazole 100 ml @ 100 mls/hr Q8H IV 05/29/17 18:00 05/31/17 10:39 Vancomycin HCl 1250 mg/Sodium Chloride 262.5 ml @ 250 mls/hr Q24H IV 05/29/17 18:00 05/30/17 18:03 Miscellaneous Information SPECIFIC LAB TO BE DRAWN:VANCO TROUGH DATE... ONCE ONCE .XX 06/01/17 17:45 06/01/17 17:46 Phenylephrine HCl 160 mg/Sodium Chloride 500 ml @ 7.5 mls/hr TITRATE PRN IV 05/29/17 18:00 05/30/17 15:30 (Brethine Inj) 1 mg UNSCH PRN SQ 05/29/17 18:00 ([place] 5-325 Mg) 1 tab Q4H PRN PO 05/30/17 14:00 05/31/17 06:26 (Lasix Inj) 20 mg UNSCH IV PUSH 05/31/17 06:45 05/31/17 21:00 05/31/17 10:39 (Cardizem) 30 mg QID PO 05/31/17 09:00 05/31/17 13:11 (Mag-Ox) 400 mg Q12HR PO 05/31/17 09:00 06/01/17 08:59 05/31/17 07:50 Sodium Phosphate 15 mmol/Sodium Chloride 155 ml @ 38.75 mls/ hr ONCE ONCE IV 05/31/17 15:00 05/31/17 18:59 05/31/17 14:38 ([place]phy[place]) 5 mg ONCE ONCE PO 05/31/17 15:30 05/31/17 15:31 UNV Assessment and Plan Problem List: (1) Atrial fibrillation with RVR ICD Codes: I48.91 - Unspecified atrial fibrillation Status: Acute Plan: HR control. ON PO cardizem Doing better Watchman will be considered in the future (2) Subdural hematoma ICD Codes: I62.00 - Nontraumatic subdural hemorrhage, unspecified Status: Acute Plan: Manage by neurosurgery Jazmyne Matos MD May 31, 2017 15:26
[2017-05-31] MEDS ORDERED: PHYTONADIONE 5 MG TAB PO ONE (16:00)
[2017-05-31] MEDS: VANCOMYCIN INJ 1,250 MG in SODIUM CHLOR 0.9% 250 ML INJ 250 ML IV SCH (17:43)
--- NOTE | 2017-05-31 23:56 | HHI.NSPN ---
History Chief Complaint: persistent headache Interval History History of Present Illness 76-year-old female with a history of atrial fibrillation, on Coumadin, presented to the emergency room today with complaint of generalized weakness following a fall 2, 2 days ago without loss of consciousness. She was seen at an outside hospital emergency room and indicates that she has scan with no significant abnormalities. She came back to the emergency room today due to persistent weakness and dizziness. On initial CT scan imaging in the emergency room she was noted to have a small subdural hematoma. She was given [facility] Ctr. and vitamin K as well as a 1 L normal saline infusion due to hypotension. 05/30/2017: Neurologic exam remained stable. Mild lethargy. Exam Results Vital Signs Date Time Temp Pulse Resp B/P (MAP) Pulse Ox O2 Delivery O2 Flow Rate FiO2 05/31/17 22:00 78 05/31/17 20:04 100 Nasal Cannula 2.00 05/31/17 20:00 98.7 18 128/57 (80) 05/30/17 16:55 21 Intake and Output 05/31/17 05/31/17 06/01/17 08:00 16:00 00:00 Intake Total 1386 ml 1468 ml 2162 ml Output Total 0 ml 0 ml Balance 1386 ml 1468 ml 2162 ml Physical Examination Respirations clear to auscultation Cardiac regular without murmur No extremity edema Relatively awake today. Speech is slow, mild dysarthria. Improved compared to past 2 days. Pupils are 2-3 mm minimally reactive. Extraocular movements intact Facial motor movement symmetric Sensation intact by touch all extremities Strength normal flexion and extension groups all extremities Lab, Micro, Other Results Laboratory Tests Test 05/31/17 04:00 05/31/17 14:55 White Blood Count 9.6 TH/MM3 Red Blood Count 2.43 MIL/MM3 Hemoglobin 7.6 GM/DL 8.4 GM/DL Hematocrit 22.7 % Mean Corpuscular Volume 93.3 FL Mean Corpuscular Hemoglobin 31.1 PG Mean Corpuscular Hemoglobin Concent 33.3 % Red Cell Distribution Width 14.5 % Platelet Count 139 TH/MM3 Mean Platelet Volume 7.7 FL Neutrophils (%) (Auto) 89.9 % Lymphocytes (%) (Auto) 1.8 % Monocytes (%) (Auto) 5.3 % Eosinophils (%) (Auto) 2.8 % Basophils (%) (Auto) 0.2 % Neutrophils # (Auto) 8.7 TH/MM3 Lymphocytes # (Auto) 0.2 TH/MM3 Monocytes # (Auto) 0.5 TH/MM3 Eosinophils # (Auto) 0.3 TH/MM3 Basophils # (Auto) 0.0 TH/MM3 CBC Comment DIFF FINAL Differential Comment Prothrombin Time 15.4 SEC Prothromb Time International Ratio 1.4 RATIO Blood Urea Nitrogen 24 MG/DL Creatinine 0.60 MG/DL Random Glucose 124 MG/DL Calcium Level 8.6 MG/DL Phosphorus Level 1.8 MG/DL Magnesium Level 1.7 MG/DL Sodium Level 136 MEQ/L Potassium Level 4.1 MEQ/L Chloride Level 105 MEQ/L Carbon Dioxide Level 25.9 MEQ/L Anion Gap 5 MEQ/L Estimat Glomerular Filtration Rate 97 ML/MIN Digoxin Level 1.1 NG/ML Medical Decision Making Impression and Plan Impression: 1. Stable neurologic exam following traumatic brain injury with mild right tentorial subdural hematoma without significant mass effect. Plan: Stable for transfer to regular floor from neurosurgical standpoint. Mobilize out of bed as tolerated Diet as tolerated Continue therapy Non chemical DVT prophylaxis Guilherme Peterson MD May 31, 2017 23:56
[2017-06-01] VITALS (14 sets, daily range): BP systolic 102–118; BP diastolic 51–64; PULSE 78–96; RESP 16–24; TEMP 98.2–98.9; O2SAT 93–98
[2017-06-01] MEDS: AZTREONAM INJ 1,000 MG in SODIUM CHLORIDE 0.9% INJ 100 ML IV SCH ×3 (00:44→15:24)
[2017-06-01] MEDS: metroNIDAZOLE 500 MG INJ 100 ML IV SCH ×3 (03:45→17:03)
[2017-06-01] MEDS: SODIUM CHLOR 0.9% 1000 ML INJ 1,000 ML IV SCH (04:55)
[2017-06-01] MEDS: CHLORHEXIDINE GLUCONATE 2 % 1 PACK (2 CLOTHS) TOP SCH ×2 (04:56→22:22)
[2017-06-01 05:09] LABS: HEMATOCRIT 25.1 % (35.0-46.0); MEAN CELL VOLUME 92.9 FL (80.0-100.0); MEAN CORPUSCULAR HEMOGLOBIN 31.3 PG (27.0-34.0); MEAN CORPUSCULAR HGB CONC 33.7 % (32.0-36.0); PLATELET COUNT 142 TH/MM3 (150-450); RED BLOOD COUNT 2.71 MIL/MM3 (4.00-5.30); RED CELL DISTRIBUTION WIDTH 14.9 % (11.6-17.2); REVIEW FLAG FINAL
[2017-06-01 05:17] LABS: APTT (PATIENT) 25.6 SEC (24.3-30.1); INTERNATIONAL NORMALIZED RATIO 1.3 RATIO; PROTHROMBIN TIME - PATIENT 14.8 SEC (9.8-11.6)
[2017-06-01 05:31] LABS: ANION GAP 8 MEQ/L (5-15); AST (GOT) 18 U/L (15-37); BICARBONATE 24.4 MEQ/L (21.0-32.0); BLOOD UREA NITROGEN 24 MG/DL (7-18); CHLORIDE 106 MEQ/L (98-107); GLOMERULAR FILTRATION RATE 110 ML/MIN (>89); MAGNESIUM 1.8 MG/DL (1.5-2.5); POTASSIUM 3.8 MEQ/L (3.5-5.1); SODIUM (NA) 138 MEQ/L (136-145)
[2017-06-01 05:46] LABS: ALKALINE PHOSPHATASE 98 U/L (45-117); ALT (GPT) 21 U/L (10-53); DIGOXIN 0.9 NG/ML (0.8-2.0); TOTAL BILIRUBIN ADULT 0.9 MG/DL (0.2-1.0)
[2017-06-01] MEDS: DOCUSATE SODIUM 50 MG/SENNA 8.6 MG TAB PO SCH ×3 (08:16→21:00)
[2017-06-01] MEDS: DILTIAZEM HCL 30 MG TAB PO SCH ×4 (08:16→21:02)
[2017-06-01] MEDS: DULoxetine HCl DR 30 MG CAP PO SCH (08:16)
[2017-06-01] MEDS: DIGOXIN 0.125 MG TAB PO SCH (08:16)
[2017-06-01] MEDS: METOPROLOL TARTRATE 25 MG TAB PO SCH ×2 (08:16→21:02)
[2017-06-01] MEDS: PANTOPRAZOLE SOD 40 MG DELAYED RELEASE TAB PO SCH (08:17)
[2017-06-01] MEDS: SODIUM CHLORIDE 0.9% FLUSH 10 ML FLUSH IV FLUSH SCH ×2 (08:17→21:02)
[2017-06-01] MEDS: levETIRAcetam INJ 500 MG in SODIUM CHLORIDE 0.9% INJ 100 ML IV SCH ×2 (08:44→21:02)
--- NOTE | 2017-06-01 09:42 | HHI.PR ---
Subjective Remarks feels well was oob judith diet. Objective Vitals heart irreg lung cta abd s/nt. ostomy ext no edema cvl Vital Signs Date Time Temp Pulse Resp B/P (MAP) Pulse Ox O2 Delivery O2 Flow Rate FiO2 06/01/17 07:00 94 Nasal Cannula 2.00 06/01/17 06:00 92 06/01/17 04:00 86 06/01/17 04:00 98.9 86 19 107/57 (74) 95 06/01/17 02:00 82 06/01/17 00:00 94 06/01/17 00:00 98.8 82 23 111/55 (73) 93 05/31/17 23:00 86 05/31/17 22:00 78 05/31/17 20:04 100 Nasal Cannula 2.00 05/31/17 20:00 98.7 87 18 128/57 (80) 98 05/31/17 20:00 79 05/31/17 19:00 99 Room Air 05/31/17 16:00 97.7 78 20 120/60 (80) 95 05/31/17 15:00 76 05/31/17 12:00 98.3 84 20 113/56 (75) 99 Result Diagram: 06/01/17 0430 06/01/17 0430 A/P Problem List: (1) Subdural hematoma ICD Codes: I62.00 - Nontraumatic subdural hemorrhage, unspecified Status: Acute Plan: Right tentorium subdural hematoma/small cortical hemorrhage right parietal field/acute right lower lobe pneumonia A. fib with RVR CHAD2-VASC 5 hypotension resolved. 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 Peterson/neurosurgery consulted repeat CT head 05/30 stable Goal keep systolic blood pressure less than 140-150 keppra for sz prophylaxis Keep head of bed at 30 Neurochecks cont dig/cardizem cardiology following anticoagulation reversed with vit k/ k centra cont nebs. narrow abx soon wean oxygen ssi dvt prophylaxis PT. oob transfer to med/surg tele. (2) Atrial fibrillation with RVR ICD Codes: I48.91 - Unspecified atrial fibrillation Status: Acute (3) Splenic infarct ICD Codes: D73.5 - Infarction of spleen (4) Gastroesophageal reflux disease ICD Codes: K21.9 - Gastro-esophageal reflux disease without esophagitis (5) IBS (irritable bowel syndrome) ICD Codes: K58.9 - Irritable bowel syndrome without diarrhea (6) History of DVT (deep vein thrombosis) ICD Codes: Z86.718 - Personal history of other venous thrombosis and embolism (7) Hiatal hernia ICD Codes: K44.9 - Diaphragmatic hernia without obstruction or gangrene (8) Diverticulosis ICD Codes: K57.90 - Diverticulosis of intestine, part unspecified, without perforation or abscess without bleeding (9) Chronic anticoagulation 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 (10) Leukocytosis ICD Codes: D72.829 - Elevated white blood cell count, unspecified (11) Pneumonia ICD Codes: J18.9 - Pneumonia, unspecified organism Status: Acute (12) HTN (hypertension) ICD Codes: I10 - Essential (primary) hypertension Status: Chronic (13) Hyperlipidemia ICD Codes: E78.5 - Hyperlipidemia, unspecified Status: Chronic (14) Current use of anticoagulant therapy 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 Status: Chronic (15) SIRS (systemic inflammatory response syndrome) ICD Codes: R65.10 - Systemic inflammatory response syndrome (SIRS) of non- infectious origin without acute organ dysfunction Status: Acute (16) Depression ICD Codes: F32.9 - Major depressive disorder, single episode, unspecified Status: Chronic Problem Qualifiers (1) Gastroesophageal reflux disease: Qualified Codes: K21.9 - Gastro-esophageal reflux disease without esophagitis (2) IBS (irritable bowel syndrome): Qualified Codes: K58.9 - Irritable bowel syndrome without diarrhea (3) Diverticulosis: Qualified Codes: K57.90 - Diverticulosis of intestine, part unspecified, without perforation or abscess without bleeding (4) Leukocytosis: Qualified Codes: D72.829 - Elevated white blood cell count, unspecified (5) Pneumonia: Qualified Codes: J18.1 - Lobar pneumonia, unspecified organism (6) HTN (hypertension): Qualified Codes: I10 - Essential (primary) hypertension (7) Hyperlipidemia: Qualified Codes: E78.5 - Hyperlipidemia, unspecified (8) Depression: Qualified Codes: F32.9 - Major depressive disorder, single episode, unspecified Armando Garcia MD Jun 01, 2017 09:42
[2017-06-01] MEDS ORDERED: POTASSIUM PHOSPHATE MONOBASIC 500 MG TAB PO ONE (09:45)
[2017-06-01] MEDS: ACETAMINOPHEN 325 MG TAB PO PRN (12:11)
--- NOTE | 2017-06-01 12:46 | HHI.NSPN ---
(Lara Be) Note Status Status: Progress Note (Lara Be) Interval History Interval History 76-year-old female with a history of atrial fibrillation, on Coumadin, presented to the emergency room today with complaint of generalized weakness following a fall 2, 2 days ago without loss of consciousness. She was seen at an outside hospital emergency room and indicates that she has scan with no significant abnormalities. She came back to the emergency room today due to persistent weakness and dizziness. On initial CT scan imaging in the emergency room she was noted to have a small subdural hematoma. She was given K Ctr. and vitamin K as well as a 1 L normal saline infusion due to hypotension. 05/30/2017: Neurologic exam remained stable. Mild lethargy. 06/01/17: eating her breakfast, reports she ambulated yesterday and sat in chair. feeling well. eager to go home (Lara Be) Labs, Micro, & Vital Signs Results Date Time Temp Pulse Resp B/P (MAP) Pulse Ox O2 Delivery O2 Flow Rate FiO2 06/01/17 12:00 84 06/01/17 10:00 88 06/01/17 08:00 96 06/01/17 08:00 98.5 96 23 109/64 (79) 96 06/01/17 07:00 94 Nasal Cannula 2.00 06/01/17 07:00 94 Nasal Cannula 2.00 06/01/17 06:00 92 06/01/17 04:00 86 06/01/17 04:00 98.9 86 19 107/57 (74) 95 06/01/17 02:00 82 06/01/17 00:00 94 06/01/17 00:00 98.8 82 23 111/55 (73) 93 05/31/17 23:00 86 05/31/17 22:00 78 05/31/17 20:04 100 Nasal Cannula 2.00 05/31/17 20:00 98.7 87 18 128/57 (80) 98 05/31/17 20:00 79 05/31/17 19:00 99 Room Air 05/31/17 16:00 97.7 78 20 120/60 (80) 95 05/31/17 15:00 76 06/02/17 07:00 Intake Total 380 ml Balance 380 ml Constitutional Vital Signs Date Time Temp Pulse Resp B/P (MAP) Pulse Ox O2 Delivery O2 Flow Rate FiO2 06/01/17 12:00 84 06/01/17 10:00 88 06/01/17 08:00 96 06/01/17 08:00 98.5 96 23 109/64 (79) 96 06/01/17 07:00 94 Nasal Cannula 2.00 06/01/17 07:00 94 Nasal Cannula 2.00 06/01/17 06:00 92 06/01/17 04:00 86 06/01/17 04:00 98.9 86 19 107/57 (74) 95 06/01/17 02:00 82 06/01/17 00:00 94 06/01/17 00:00 98.8 82 23 111/55 (73) 93 05/31/17 23:00 86 05/31/17 22:00 78 05/31/17 20:04 100 Nasal Cannula 2.00 05/31/17 20:00 98.7 87 18 128/57 (80) 98 05/31/17 20:00 79 05/31/17 19:00 99 Room Air 05/31/17 16:00 97.7 78 20 120/60 (80) 95 05/31/17 15:00 76 06/02/17 07:00 Intake Total 380 ml Balance 380 ml (Lara Be) Review of Systems Constitutional: DENIES: Fever Cardiovascular: DENIES: Chest pain Neurologic: DENIES: Headache (Lara Be) Physical Exam Alert and oriented to name and place. Eating breakfast Speech is slow but fluent, follow commands well CN: facial motor symmetric Motor: moves all four extremities Sensation intact by touch all extremities (Lara Be) Medications Current Medications Current Medications Medications (Trade) Dose Ordered Sig/Lucina Route PRN Reason Start Time Stop Time Status Last Admin Dose Admin Sodium Chloride (NS Flush) 2 ml UNSCH PRN IV FLUSH FLUSH AFTER USING IV ACCESS 05/29/17 15:15 Sodium Chloride (NS Flush) 2 ml BID IV FLUSH 05/29/17 21:00 05/31/17 09:00 Acetaminophen (Tylenol) 650 mg Q6H PRN PO FEVER >100F 05/29/17 15:15 06/01/17 12:11 Pantoprazole Sodium (Protonix) 40 mg DAILY PO 05/30/17 09:00 06/01/17 08:17 Ondansetron HCl (Zofran Inj) 4 mg Q6H PRN IV NAUSEA OR VOMITING 05/29/17 15:15 Albuterol Sulfate (Albuterol Neb) 2.5 mg Q2HR NEB PRN INH SOB/WHEEZING 05/29/17 15:15 Miscellaneous Information 1 Q361D XX 05/29/17 15:15 Chlorhexidine Gluconate (Chlorhexidine 2% Cloth) 3 pack Taper DAILY@04 TOP 05/30/17 04:00 05/26/18 03:59 06/01/17 04:56 Chlorhexidine Gluconate (Chlorhexidine 2% Cloth) 3 pack UNSCH PRN TOP HYGIENIC CARE 05/29/17 15:15 Senna/Docusate Sodium (Roxann-Colace) 1 tab BID PO 05/29/17 21:00 05/31/17 20:47 Magnesium Hydroxide (Milk Of Magnesia Liq) 30 ml Q12H PRN PO MILD - MODERATE CONSTIPATION 05/29/17 15:15 Sennosides (Senokot) 17.2 mg Q12H PRN PO MODERATE - SEVERE CONSTIPATION 05/29/17 15:15 Bisacodyl (Dulcolax Supp) 10 mg DAILY PRN RECTAL SEVERE CONSITIPATION 05/29/17 15:15 Lactulose (Lactulose Liq) 30 ml DAILY PRN PO SEVERE CONSITIPATION 05/29/17 15:15 Levetriacetam 500 mg/Sodium Chloride 105 ml @ 420 mls/hr Q12HR IV 05/29/17 21:00 06/05/17 20:59 06/01/17 08:44 Digoxin (Lanoxin) 0.125 mg DAILY PO 05/30/17 09:00 06/01/17 08:16 Duloxetine HCl (Cymbalta Dr) 30 mg DAILY PO 05/30/17 09:00 06/01/17 08:16 Metoprolol Tartrate (Lopressor) 25 mg BID PO 05/29/17 21:00 06/01/17 08:16 Pharmacy Profile Note 0 ml @ 0 mls/hr UNSCH OTHER 05/29/17 15:45 Aztreonam 1000 mg/ Sodium Chloride 100 ml @ 200 mls/hr Q8H IV 05/29/17 16:00 06/01/17 08:09 Metronidazole 100 ml @ 100 mls/hr Q8H IV 05/29/17 18:00 06/01/17 09:37 Vancomycin HCl 1250 mg/Sodium Chloride 262.5 ml @ 250 mls/hr Q24H IV 05/29/17 18:00 05/31/17 17:43 Miscellaneous Information SPECIFIC LAB TO BE DRAWN:VANCO TROUGH DATE... ONCE ONCE .XX 06/01/17 17:45 06/01/17 17:46 Terbutaline Sulfate (Brethine Inj) 1 mg UNSCH PRN SQ For Extravasation 05/29/17 18:00 Acetaminophen/ Hydrocodone Bitart ([place] 5-325 Mg) 1 tab Q4H PRN PO pain 1-10 05/30/17 14:00 05/31/17 06:26 Diltiazem HCl (Cardizem) 30 mg QID PO 05/31/17 09:00 06/01/17 12:11 (Lara Be) Medical Decision Making MDM Remarks 76 y/o female 1. traumatic brain injury with mild right tentorial subdural hematoma without significant mass effect. stable neurological examination. (Lara Be) Plan Plan Remarks cont current care, cont physical therapy and encourage to increase mobilize OOB stable to transfer out of unit from standpoint (Lara Be) Attending Statement The exam, history, and the medical decision-making described in the above note were completed with the assistance of the mid-level provider. I reviewed and agree with the findings presented. I attest that I had a [id number] encounter with the patient on the same day, and personally performed and documented my assessment and findings in the medical record. (Sergei Jones MD) Lara Be Jun 01, 2017 12:46 Sergei Jones MD Jun 14, 2017 21:53
--- NOTE | 2017-06-01 15:50 | HHI.PR ---
Subjective Remarks Doing ok Objective Vital Signs Date Time Temp Pulse Resp B/P (MAP) Pulse Ox O2 Delivery O2 Flow Rate FiO2 06/01/17 14:00 81 06/01/17 12:00 98.3 84 16 102/55 (71) 96 06/01/17 12:00 84 06/01/17 10:00 88 06/01/17 08:00 96 06/01/17 08:00 98.5 96 23 109/64 (79) 96 06/01/17 07:00 94 Nasal Cannula 2.00 06/01/17 07:00 94 Nasal Cannula 2.00 06/01/17 06:00 92 06/01/17 04:00 86 06/01/17 04:00 98.9 86 19 107/57 (74) 95 06/01/17 02:00 82 06/01/17 00:00 94 06/01/17 00:00 98.8 82 23 111/55 (73) 93 05/31/17 23:00 86 05/31/17 22:00 78 05/31/17 20:04 100 Nasal Cannula 2.00 05/31/17 20:00 98.7 87 18 128/57 (80) 98 05/31/17 20:00 79 05/31/17 19:00 99 Room Air 05/31/17 16:00 97.7 78 20 120/60 (80) 95 I/O 05/31/17 05/31/17 05/31/17 06/01/17 06/01/17 06/01/17 07:00 15:00 23:00 07:00 15:00 23:00 Intake Total 1386 ml 1368 ml 2262 ml 1000.0 ml 380 ml Output Total 0 ml 0 ml Balance 1386 ml 1368 ml 2262 ml 1000.0 ml 380 ml Intake Oral 625 ml IV Total 1386 ml 200 ml 1637 ml 1000.0 ml 380 ml Packed Cells 250 ml FFP 318 ml Blood Product IV Normal Saline Flush 600 ml Stool Total 0 ml 0 ml # Voids 4 3 3 Result Diagram: 06/01/17 0430 06/01/17 0430 Imaging Alert, in bed Lungs: ventilated Heart: S1, S2 irregular, SEMI/IV abdomen: soft, no mass Ext: no edema Last Impressions Pelvis CT 05/31/17 0000 Signed Impressions: Service Date/Time: Wednesday, May 31, 2017 09:52 - CONCLUSION: No fractures are seen. The right iliopsoas muscle is slightly increased in size and density suggesting possible hemorrhage. There is also intermediate density fluid in this region suggesting a small amount of hemorrhage. Andre Flores MD Head CT 05/30/17 0600 Signed Impressions: Service Date/Time: Tuesday, May 30, 2017 09:21 - CONCLUSION: Stable subdural hemorrhage. Andre Flores MD Pelvis X-Ray 05/30/17 0000 Signed Impressions: Service Date/Time: Tuesday, May 30, 2017 17:10 - CONCLUSION: Limited by body habitus. I don't see definite fracture. If patient remains symptomatic CT scan is the viable alternative given the patient's size. Vic Romero MD FACR Knee X-Ray 05/30/17 0000 Signed Impressions: Service Date/Time: Tuesday, May 30, 2017 17:05 - CONCLUSION: Status post total knee arthroplasty. There is no fracture following fall. Vic Romero MD Chest X-Ray 05/29/17 1752 Signed Impressions: Service Date/Time: Monday, May 29, 2017 17:56 - CONCLUSION: Mild right base atelectasis or consolidation. This is improved from the prior exam. The new right internal jugular central line is in good position. Yovani Blanchard MD Current Medications Medications (Trade) Dose Ordered Sig/Lucina Route Start Time Stop Time Status Last Admin (NS Flush) 2 ml UNSCH PRN IV FLUSH 05/29/17 15:15 (NS Flush) 2 ml BID IV FLUSH 05/29/17 21:00 05/31/17 09:00 (Tylenol) 650 mg Q6H PRN PO 05/29/17 15:15 06/01/17 12:11 (Protonix) 40 mg DAILY PO 05/30/17 09:00 06/01/17 08:17 (Zofran Inj) 4 mg Q6H PRN IV 05/29/17 15:15 (Albuterol Neb) 2.5 mg Q2HR NEB PRN INH 05/29/17 15:15 Miscellaneous Information 1 Q361D XX 05/29/17 15:15 (Chlorhexidine 2% Cloth) 3 pack Taper DAILY@04 TOP 05/30/17 04:00 05/26/18 03:59 06/01/17 04:56 (Chlorhexidine 2% Cloth) 3 pack UNSCH PRN TOP 05/29/17 15:15 (Roxann-Colace) 1 tab BID PO 05/29/17 21:00 05/31/17 20:47 (Milk Of Magnesia Liq) 30 ml Q12H PRN PO 05/29/17 15:15 (Senokot) 17.2 mg Q12H PRN PO 05/29/17 15:15 (Dulcolax Supp) 10 mg DAILY PRN RECTAL 05/29/17 15:15 (Lactulose Liq) 30 ml DAILY PRN PO 05/29/17 15:15 Levetriacetam 500 mg/Sodium Chloride 105 ml @ 420 mls/hr Q12HR IV 05/29/17 21:00 06/05/17 20:59 06/01/17 08:44 (Lanoxin) 0.125 mg DAILY PO 05/30/17 09:00 06/01/17 08:16 (Cymbalta Dr) 30 mg DAILY PO 05/30/17 09:00 06/01/17 08:16 (Lopressor) 25 mg BID PO 05/29/17 21:00 06/01/17 08:16 Pharmacy Profile Note 0 ml @ 0 mls/hr UNSCH OTHER 05/29/17 15:45 Aztreonam 1000 mg/ Sodium Chloride 100 ml @ 200 mls/hr Q8H IV 05/29/17 16:00 06/01/17 15:24 Metronidazole 100 ml @ 100 mls/hr Q8H IV 05/29/17 18:00 06/01/17 09:37 Vancomycin HCl 1250 mg/Sodium Chloride 262.5 ml @ 250 mls/hr Q24H IV 05/29/17 18:00 05/31/17 17:43 Miscellaneous Information SPECIFIC LAB TO BE DRAWN:[facility]ANCO TROUGH DATE... ONCE ONCE .XX 06/01/17 17:45 06/01/17 17:46 (Brethine Inj) 1 mg UNSCH PRN SQ 05/29/17 18:00 ([place] 5-325 Mg) 1 tab Q4H PRN PO 05/30/17 14:00 05/31/17 06:26 (Cardizem) 30 mg QID PO 05/31/17 09:00 06/01/17 12:11 Assessment and Plan Problem List: (1) Atrial fibrillation with RVR ICD Codes: I48.91 - Unspecified atrial fibrillation Status: Acute Plan: HR control Continue with current management I will be available on a PRN basis (2) Subdural hematoma ICD Codes: I62.00 - Nontraumatic subdural hemorrhage, unspecified Status: Acute Plan: Stable Manage by neurosurgery Jazmyne Matos MD Jun 01, 2017 15:50
[2017-06-01] MEDS ORDERED: PHARMACY ORDERED LAB ONE (17:45)
[2017-06-01] MEDS: VANCOMYCIN INJ 1,250 MG in SODIUM CHLOR 0.9% 250 ML INJ 250 ML IV SCH (18:09)
[2017-06-01 20:07] LABS: BLOOD, URINE NEG (NEG); COMMENT (UR) CULT NOT INDICATED; CULTURE IF INDICATED CULT NOT INDICATED; GLUCOSE,URINE NEG (NEG); KETONE, URINE NEG (NEG); MUCUS URINE FEW /lpf (OCC); NITRITE,URINE NEG (NEG); PH, URINE 5.5 (5.0-8.5); SQUAMOUS EPITHELIAL CELL URINE 1 /hpf (0-5); URINE COLOR YELLOW (YELLW/STRAW)
[2017-06-02] VITALS (14 sets, daily range): BP systolic 103–141; BP diastolic 53–70; PULSE 74–108; RESP 16–26; TEMP 98–99.8; O2SAT 90–100
[2017-06-02] MEDS: metroNIDAZOLE 500 MG INJ 100 ML IV SCH ×2 (01:20→08:30)
[2017-06-02] MEDS: ACETAMINOPHEN 325 MG TAB PO PRN ×2 (02:08→14:08)
[2017-06-02] MEDS ORDERED: VANCOMYCIN 1,000 MG/NS 250 ML IV SCH ×2 (06:00)
[2017-06-02 08:08] LABS: BICARBONATE 24.5 MEQ/L (21.0-32.0); MAGNESIUM 1.6 MG/DL (1.5-2.5); POTASSIUM 3.6 MEQ/L (3.5-5.1)
[2017-06-02] MEDS: AZTREONAM INJ 1,000 MG in SODIUM CHLORIDE 0.9% INJ 100 ML IV SCH ×3 (08:29)
[2017-06-02] MEDS: METOPROLOL TARTRATE 25 MG TAB PO SCH ×2 (08:30→21:26)
[2017-06-02] MEDS: levETIRAcetam INJ 500 MG in SODIUM CHLORIDE 0.9% INJ 100 ML IV SCH (08:30)
[2017-06-02] MEDS: PANTOPRAZOLE SOD 40 MG DELAYED RELEASE TAB PO SCH (08:30)
[2017-06-02] MEDS: DILTIAZEM HCL 30 MG TAB PO SCH ×4 (08:30→21:26)
[2017-06-02] MEDS: DIGOXIN 0.125 MG TAB PO SCH (08:31)
[2017-06-02] MEDS: DULoxetine HCl DR 30 MG CAP PO SCH (08:31)
[2017-06-02] MEDS: DOCUSATE SODIUM 50 MG/SENNA 8.6 MG TAB PO SCH ×2 (08:31→20:35)
--- NOTE | 2017-06-02 09:29 | HHI.PR ---
Subjective Remarks doing well was oob yesterday Objective Vitals heart reg lung cta abd s/nt ext right knee ecchymosis no pitting edema cvl Vital Signs Date Time Temp Pulse Resp B/P (MAP) Pulse Ox O2 Delivery O2 Flow Rate FiO2 06/02/17 09:15 100 21 06/02/17 08:00 98.0 86 21 131/70 (90) 95 06/02/17 07:00 92 Nasal Cannula 2.00 06/02/17 06:00 84 06/02/17 04:00 88 06/02/17 04:00 98.4 88 24 103/53 (70) 90 06/02/17 02:00 92 06/02/17 00:00 98.5 98 23 119/59 (79) 95 06/02/17 00:00 98 06/01/17 22:00 88 06/01/17 20:40 97 Nasal Cannula 1.50 06/01/17 20:00 86 06/01/17 20:00 98.4 86 24 118/54 (75) 98 06/01/17 19:00 98 Nasal Cannula 2.00 06/01/17 18:00 89 06/01/17 16:00 78 06/01/17 16:00 98.2 87 20 102/51 (68) 97 06/01/17 14:00 81 06/01/17 12:00 98.3 84 16 102/55 (71) 96 06/01/17 12:00 84 06/01/17 10:00 88 Result Diagram: 06/01/17 0430 06/02/17 0634 A/P Problem List: (1) Subdural hematoma ICD Codes: I62.00 - Nontraumatic subdural hemorrhage, unspecified Status: Acute Plan: Right tentorium subdural hematoma/small cortical hemorrhage right parietal field/acute right lower lobe pneumonia A. fib with RVR CHAD2-VASC 5 hypotension resolved. 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 Peterson/neurosurgery consulted repeat CT head 05/30 stable Goal keep systolic blood pressure less than 140-150 keppra for sz prophylaxis..iv to po Keep head of bed at 30 Neurochecks cont dig/cardizem...convert to cardizem cd cardiology following anticoagulation reversed with vit k/ k centra..resume when ok with nsg. cont nebs. convert abx to po and complete the course wean oxygen ssi dvt prophylaxis PT. oob transfer to med/surg tele. pending. (2) Atrial fibrillation with RVR ICD Codes: I48.91 - Unspecified atrial fibrillation Status: Acute (3) Splenic infarct ICD Codes: D73.5 - Infarction of spleen (4) Gastroesophageal reflux disease ICD Codes: K21.9 - Gastro-esophageal reflux disease without esophagitis (5) IBS (irritable bowel syndrome) ICD Codes: K58.9 - Irritable bowel syndrome without diarrhea (6) History of DVT (deep vein thrombosis) ICD Codes: Z86.718 - Personal history of other venous thrombosis and embolism (7) Hiatal hernia ICD Codes: K44.9 - Diaphragmatic hernia without obstruction or gangrene (8) Diverticulosis ICD Codes: K57.90 - Diverticulosis of intestine, part unspecified, without perforation or abscess without bleeding (9) Chronic anticoagulation ICD Codes: Z79.01 - tank terminal gauger (current) use of anticoagulants (10) Leukocytosis ICD Codes: D72.829 - Elevated white blood cell count, unspecified (11) Pneumonia ICD Codes: J18.9 - Pneumonia, unspecified organism Status: Acute (12) HTN (hypertension) ICD Codes: I10 - Essential (primary) hypertension Status: Chronic (13) Hyperlipidemia ICD Codes: E78.5 - Hyperlipidemia, unspecified Status: Chronic (14) Current use of anticoagulant therapy ICD Codes: Z79.01 - tank terminal gauger (current) use of anticoagulants Status: Chronic (15) SIRS (systemic inflammatory response syndrome) ICD Codes: R65.10 - Systemic inflammatory response syndrome (SIRS) of non- infectious origin without acute organ dysfunction Status: Acute (16) Depression ICD Codes: F32.9 - Major depressive disorder, single episode, unspecified Status: Chronic Problem Qualifiers (1) Gastroesophageal reflux disease: Qualified Codes: K21.9 - Gastro-esophageal reflux disease without esophagitis (2) IBS (irritable bowel syndrome): Qualified Codes: K58.9 - Irritable bowel syndrome without diarrhea (3) Diverticulosis: Qualified Codes: K57.90 - Diverticulosis of intestine, part unspecified, without perforation or abscess without bleeding (4) Leukocytosis: Qualified Codes: D72.829 - Elevated white blood cell count, unspecified (5) Pneumonia: Qualified Codes: J18.1 - Lobar pneumonia, unspecified organism (6) HTN (hypertension): Qualified Codes: I10 - Essential (primary) hypertension (7) Hyperlipidemia: Qualified Codes: E78.5 - Hyperlipidemia, unspecified (8) Depression: Qualified Codes: F32.9 - Major depressive disorder, single episode, unspecified Armando Garcia MD Jun 02, 2017 09:29
--- NOTE | 2017-06-02 12:04 | PD.WCN.NOT ---
Wound Consult Description: Consult for wound management Stage IV decubitus ulcer per Dr Garcia Communicated with: AGUSTÍN Gilbert Patient Recommendation: Continue to reposition Q2H and PRN for comfort Additional Information: Patient seen on for evaluation of wound per Dr Garcia. Patient states that she no longer has the stated wound and that it closed approximately 3-4 months ago. AGUSTÍN Gilbert states that she has visualized the patients buttocks and the patient has no open wounds. Patient is sitting up in chair and states that the staff has been coming in to reposition her every 2 hours and is aware of how to avoid skin breakdown and points to the sign on her window that says reposition every 2 hours. Patient has a specialty surface in her room. Patient states no discomfort at this time and is voicing her desire to hopefully go home soon. Nubia Harvey [facility] Jun 02, 2017 12:04
[2017-06-02] MEDS ORDERED: POTASSIUM PHOSPHATE MONOBASIC 500 MG TAB PO ONE (13:00)
--- NOTE | 2017-06-02 15:08 | HHI.NSPN ---
(Martir Mckoy) History Chief Complaint: Intermittent headache. (Martir Mckoy) Interval History 05/29: 76-year-old female with a history of atrial fibrillation, on Coumadin, presented to the emergency room today with complaint of generalized weakness following a fall 2, 2 days ago without loss of consciousness. She was seen at an outside hospital emergency room and indicates that she has scan with no significant abnormalities. She came back to the emergency room today due to persistent weakness and dizziness. On initial CT scan imaging in the emergency room she was noted to have a small subdural hematoma. She was given [facility]. and vitamin K as well as a 1 L normal saline infusion due to hypotension. 05/30/2017: Neurologic exam remained stable. Mild lethargy. 06/01/17: eating her breakfast, reports she ambulated yesterday and sat in chair. feeling well. eager to go home 06/02: The patient is asleep when seen but awakens to verbal stimuli. After that she is alert and readily interacts. She does endorse an intermittent right frontal headache as well as right knee pain. (Martir Mckoy) System Review Comments Constitutional: Patient denies any fever or chills. HEENT: Patient has some pain to the right upper forehead where she struck it. She denies any visual or hearing difficulty. Respiratory: Patient denies any shortness of breath or productive cough. Cardiovascular: Patient denies any chest pain, palpitations or irregular heartbeat. Gastrointestinal: Patient has some abdominal wall soreness from her fall. She denies any nausea, vomiting or incontinence of stool. Genitourinary: Patient denies any incontinence of urine. Musculoskeletal: Patient complains of pain, swelling and bruising to the right knee. She denies any pain to the back, neck or other extremities. Neurologic: Patient has an occasional right frontal headache. She denies any dizziness, numbness or tingling. (Martir Mckoy) Exam Results 05/31/17 05/31/17 06/01/17 06/01/17 06/02/17/5/17 05:59 17:59 05:59 17:59 05:59 17:59 Intake Total 1092 ml 2854 ml 2162 ml 1380.0 ml 1556 ml 1587 ml Output Total 0 ml 0 ml 0 ml 50 ml 10 ml Balance 1092 ml 2854 ml 2162 ml 1380.0 ml 1506 ml 1577 ml Intake Oral 625 ml 520 ml 400 ml IV Total 1092 ml 1686 ml 1537 ml 1380.0 ml 1036 ml 1187 ml Packed Cells 250 ml FFP 318 ml Blood Product IV Normal Saline Flush 600 ml Stool Total 0 ml 0 ml 0 ml 50 ml 10 ml # Voids 3 4 3 3 3 2 Vital Signs Date Time Temp Pulse Resp B/P (MAP) Pulse Ox O2 Delivery O2 Flow Rate FiO2 06/02/17 12:00 90 06/02/17 12:00 98.0 90 16 113/55 (74) 94 06/02/17 10:00 74 06/02/17 09:15 100 21 06/02/17 08:00 86 06/02/17 08:00 98.0 86 21 131/70 (90) 95 06/02/17 07:00 92 Nasal Cannula 2.00 06/02/17 06:00 84 06/02/17 04:00 88 06/02/17 04:00 98.4 88 24 103/53 (70) 90 06/02/17 02:00 92 06/02/17 00:00 98.5 98 23 119/59 (79) 95 06/02/17 00:00 98 06/01/17 22:00 88 06/01/17 20:40 97 Nasal Cannula 1.50 06/01/17 20:00 86 06/01/17 20:00 98.4 86 24 118/54 (75) 98 06/01/17 19:00 98 Nasal Cannula 2.00 06/01/17 18:00 89 06/01/17 16:00 78 06/01/17 16:00 98.2 87 20 102/51 (68) 97 06/01/17 14:00 81 06/01/17 12:00 98.3 84 16 102/55 (71) 96 06/01/17 12:00 84 06/01/17 10:00 88 06/01/17 08:00 96 06/01/17 08:00 98.5 96 23 109/64 (79) 96 06/01/17 07:00 94 Nasal Cannula 2.00 06/01/17 07:00 94 Nasal Cannula 2.00 06/01/17 06:00 92 06/01/17 04:00 86 06/01/17 04:00 98.9 86 19 107/57 (74) 95 06/01/17 02:00 82 06/01/17 00:00 94 06/01/17 00:00 98.8 82 23 111/55 (73) 93 05/31/17 23:00 86 05/31/17 22:00 78 05/31/17 20:04 100 Nasal Cannula 2.00 05/31/17 20:00 98.7 87 18 128/57 (80) 98 05/31/17 20:00 79 05/31/17 19:00 99 Room Air 05/31/17 16:00 97.7 78 20 120/60 (80) 95 05/31/17 15:00 76 05/31/17 12:00 98.3 84 20 113/56 (75) 99 05/31/17 08:16 97 Nasal Cannula 2.00 05/31/17 08:00 98.1 90 15 90/52 (65) 97 05/31/17 07:00 88 05/31/17 07:00 97 Room Air 05/31/17 04:00 98.6 87 22 95/47 (63) 100 05/31/17 00:00 98.8 87 21 96/51 (66) 100 05/30/17 23:00 99 05/30/17 23:00 99 05/30/17 21:35 15 05/30/17 21:00 100 Nasal Cannula 2.00 05/30/17 20:00 98.8 118 15 97/55 (69) 100 05/30/17 19:00 98 Nasal Cannula 2.00 05/30/17 16:55 95 21 05/30/17 16:00 98.5 86 21 107/51 (69) 97 05/30/17 15:31 98 124/54 05/30/17 15:30 75 124/54 (Martir Mckoy) Physical Examination GENERAL: The patient is doing well, readily interacts. Affect normal. NAD. SKIN: Warm, dry & intact. She does have ecchymosis to the right upper forehead and the right knee. Ecchymosis also noted to right forearm. No rashes, ulcerations or other lesions noted. HEENT: Normocephalic, ecchymosis to the right superior forehead mildly TTP. PERRLA, EOMI. MMM & pink, tongue midline to protrusion. NECK: Full active ROM w/o pain, no JVD, trachea midline. CARDIOVASCULAR: S1S2 irregularly irregular w/grade II/ murmur, radial & pedal pulses 2+ bilaterally, cap refill < 2 sec, no pedal edema. Monitor appears to be atrial fibrillation w/controlled ventricular rate, no ectopy noted. RESPIRATORY: CTAB w/o W/R/R, equal excursion, nonlaboured, on RA. GASTROINTESTINAL: Abdomen soft, nontender, positive bowel sounds. MUSCULOSKELETAL: MERRILL w/o difficulty, no evident deformity or clubbing, swelling & ecchymosis to right knee which is TTP. NEUROLOGICAL: AAOx3. Speech clear & appropriate. CN II-XII appear grossly intact. Sensation intact to light touch to all extremities. Strength symmetrical to all major flexion & extension muscle groups. (Martir Mckoy) Medical Decision Making Impression and Plan Impression: 1. Thin right tentorial subdural hematoma in patient with chronic atrial fibrillation on Coumadin. 2. Hypertension 3. History of dyslipidemia 4. History of atrial fibrillation Patient doing well, neurologically intact. Plan: Primary management per Hospitalist. Continue neuro checks. Stat CT brain for any decrease in neuro status. Hold anticoagulation. Mobilise patient with assistance. PT/OT eval & tx. Patient may be transferred to a regular med/surg floor from NSGY's perspective. (Martir Mckoy) Attending Statement I have personally seen and examined the patient on the date of this note. Pertinent documentation and study results have been reviewed by the undersigned. I have personally developed the treatment plan and performed medical decision making. Agree with findings, exam, and treatment plan as noted above. Patient remains awake and alert. No focal neurologic deficit Doing well from neurosurgical standpoint Okay for transfer to floor. No neurosurgical intervention planned. Stable for discharge to rehabilitation/half-way (Guilherme Peterson MD) Martir Mckoy Jun 02, 2017 15:08 Guilherme Peterson MD Jun 03, 2017 21:27
[2017-06-02] MEDS: CHLORHEXIDINE GLUCONATE 2 % 1 PACK (2 CLOTHS) TOP SCH (20:34)
[2017-06-02] MEDS: levETIRAcetam 500 MG TAB PO SCH (21:26)
[2017-06-02] MEDS: SODIUM CHLORIDE 0.9% FLUSH 10 ML FLUSH IV FLUSH SCH (21:27)
[2017-06-03] VITALS (11 sets, daily range): BP systolic 113–152; BP diastolic 54–75; PULSE 63–99; RESP 18–26; TEMP 97.6–98.3; O2SAT 88–98
[2017-06-03] MEDS: ACETAMINOPHEN 325 MG TAB PO PRN ×2 (03:37→16:52)
[2017-06-03] MEDS ORDERED: PHARMACY ORDERED LAB ONE (05:45)
--- NOTE | 2017-06-03 08:57 | HHI.PR ---
Subjective Remarks doing ok. no complaints Objective Vitals heart rg lung cta abd s/nt ext no edema cvl Vital Signs Date Time Temp Pulse Resp B/P (MAP) Pulse Ox O2 Delivery O2 Flow Rate FiO2 06/03/17 06:00 92 06/03/17 04:00 90 06/03/17 04:00 98.2 90 23 123/59 (80) 88 06/03/17 02:00 86 06/03/17 00:00 97.8 91 26 121/59 (79) 89 06/03/17 00:00 91 06/02/17 22:00 108 06/02/17 20:29 93 21 06/02/17 20:00 99.8 96 26 141/59 (86) 93 06/02/17 20:00 96 06/02/17 19:00 93 Nasal Cannula 2.00 06/02/17 18:00 87 06/02/17 16:00 84 06/02/17 16:00 98.0 94 18 104/53 (70) 06/02/17 14:00 88 06/02/17 12:00 90 06/02/17 12:00 98.0 90 16 113/55 (74) 94 06/02/17 10:00 74 06/02/17 09:15 100 21 Result Diagram: 06/01/17 0430 06/02/17 0634 A/P Problem List: (1) Subdural hematoma ICD Codes: I62.00 - Nontraumatic subdural hemorrhage, unspecified Status: Acute Plan: Right tentorium subdural hematoma/small cortical hemorrhage right parietal field/acute right lower lobe pneumonia A. fib with RVR CHAD2-VASC 5 hypotension resolved. 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 Peterson/neurosurgery consulted repeat CT head 05/30 stable Goal keep systolic blood pressure less than 140-150 keppra for sz prophylaxis..stop tomorrow Keep head of bed at 30 Neurochecks cont dig/cardizem...converted to cardizem cd cardiology following anticoagulation reversed with vit k/ k centra..resume when ok with nsg. cont nebs. cont abx po wean oxygen ssi dvt prophylaxis PT. oob pt transfer from [facility] pending for 3 days plan for d/c home tomorrow if ok with NSG. pt not interested in snf. (2) Atrial fibrillation with RVR ICD Codes: I48.91 - Unspecified atrial fibrillation Status: Acute (3) Splenic infarct ICD Codes: D73.5 - Infarction of spleen (4) Gastroesophageal reflux disease ICD Codes: K21.9 - Gastro-esophageal reflux disease without esophagitis (5) IBS (irritable bowel syndrome) ICD Codes: K58.9 - Irritable bowel syndrome without diarrhea (6) History of DVT (deep vein thrombosis) ICD Codes: Z86.718 - Personal history of other venous thrombosis and embolism (7) Hiatal hernia ICD Codes: K44.9 - Diaphragmatic hernia without obstruction or gangrene (8) Diverticulosis ICD Codes: K57.90 - Diverticulosis of intestine, part unspecified, without perforation or abscess without bleeding (9) Chronic anticoagulation ICD Codes: Z79.01 - alf (current) use of anticoagulants (10) Leukocytosis ICD Codes: D72.829 - Elevated white blood cell count, unspecified (11) Pneumonia ICD Codes: J18.9 - Pneumonia, unspecified organism Status: Acute (12) HTN (hypertension) ICD Codes: I10 - Essential (primary) hypertension Status: Chronic (13) Hyperlipidemia ICD Codes: E78.5 - Hyperlipidemia, unspecified Status: Chronic (14) Current use of anticoagulant therapy ICD Codes: Z79.01 - alf (current) use of anticoagulants Status: Chronic (15) SIRS (systemic inflammatory response syndrome) ICD Codes: R65.10 - Systemic inflammatory response syndrome (SIRS) of non- infectious origin without acute organ dysfunction Status: Acute (16) Depression ICD Codes: F32.9 - Major depressive disorder, single episode, unspecified Status: Chronic Problem Qualifiers (1) Gastroesophageal reflux disease: Qualified Codes: K21.9 - Gastro-esophageal reflux disease without esophagitis (2) IBS (irritable bowel syndrome): Qualified Codes: K58.9 - Irritable bowel syndrome without diarrhea (3) Diverticulosis: Qualified Codes: K57.90 - Diverticulosis of intestine, part unspecified, without perforation or abscess without bleeding (4) Leukocytosis: Qualified Codes: D72.829 - Elevated white blood cell count, unspecified (5) Pneumonia: Qualified Codes: J18.1 - Lobar pneumonia, unspecified organism (6) HTN (hypertension): Qualified Codes: I10 - Essential (primary) hypertension (7) Hyperlipidemia: Qualified Codes: E78.5 - Hyperlipidemia, unspecified (8) Depression: Qualified Codes: F32.9 - Major depressive disorder, single episode, unspecified Armando Garcia MD Jun 03, 2017 08:57
[2017-06-03] MEDS: DOCUSATE SODIUM 50 MG/SENNA 8.6 MG TAB PO SCH ×3 (09:00→21:23)
[2017-06-03] MEDS: levETIRAcetam 500 MG TAB PO SCH ×2 (09:49→21:23)
[2017-06-03] MEDS: PANTOPRAZOLE SOD 40 MG DELAYED RELEASE TAB PO SCH (09:49)
[2017-06-03] MEDS: DILTIAZEM-CD 120 MG CAP ER PO SCH (09:50)
[2017-06-03] MEDS: LEVOFLOXACIN 500 MG TAB PO SCH (09:50)
[2017-06-03] MEDS: DULoxetine HCl DR 30 MG CAP PO SCH (09:50)
[2017-06-03] MEDS: METOPROLOL TARTRATE 25 MG TAB PO SCH ×2 (09:50→21:23)
[2017-06-03] MEDS: DIGOXIN 0.125 MG TAB PO SCH (09:50)
[2017-06-03] MEDS: SODIUM CHLORIDE 0.9% FLUSH 10 ML FLUSH IV FLUSH SCH ×2 (09:51→21:00)
--- NOTE | 2017-06-03 21:28 | HHI.NSPN ---
History Chief Complaint: Intermittent headache. Interval History History of Present Illness 76-year-old female with a history of atrial fibrillation, on Coumadin, presented to the emergency room today with complaint of generalized weakness following a fall 2, 2 days ago without loss of consciousness. She was seen at an outside hospital emergency room and indicates that she has scan with no significant abnormalities. She came back to the emergency room today due to persistent weakness and dizziness. On initial CT scan imaging in the emergency room she was noted to have a small subdural hematoma. She was given [facility] Ctr. and vitamin K as well as a 1 L normal saline infusion due to hypotension. 05/30/2017: Neurologic exam remained stable. Mild lethargy. Exam Results Vital Signs Date Time Temp Pulse Resp B/P (MAP) Pulse Ox O2 Delivery O2 Flow Rate FiO2 06/03/17 18:58 98.1 86 20 138/75 (96) 92 06/03/17 10:59 21 06/03/17 07:00 Nasal Cannula 2.00 Intake and Output 06/03/17 06/03/17 06/03/17 07:59 15:59 23:59 Intake Total 1074 ml 220 ml Output Total 500 ml Balance 1074 ml -280 ml Physical Examination GENERAL: The patient is doing well, readily interacts. Affect normal. NAD. SKIN: Warm, dry & intact. She does have ecchymosis to the right upper forehead and the right knee. Ecchymosis also noted to right forearm. No rashes, ulcerations or other lesions noted. HEENT: Normocephalic, ecchymosis to the right superior forehead mildly TTP. PERRLA, EOMI. MMM & pink, tongue midline to protrusion. NECK: Full active ROM w/o pain, no JVD, trachea midline. GASTROINTESTINAL: Abdomen soft, nontender, positive bowel sounds. MUSCULOSKELETAL: MERRILL w/o difficulty, no evident deformity or clubbing, swelling & ecchymosis to right knee which is TTP. NEUROLOGICAL: AAOx3. Speech clear & appropriate. CN II-XII appear grossly intact. Sensation intact to light touch to all extremities. Strength symmetrical to all major flexion & extension muscle groups. Medical Decision Making Impression and Plan Impression: 1. Stable neurologic exam following traumatic brain injury with mild right tentorial subdural hematoma without significant mass effect. Plan: Stable for transfer to regular floor from neurosurgical standpoint. Mobilize out of bed as tolerated Diet as tolerated Continue therapy Non chemical DVT prophylaxis Stable for discharge to inpatient rehabilitation. No neurosurgical intervention planned. Guilherme Peterson MD Jun 03, 2017 21:28
[2017-06-04 00:55] VITALS: BP 124/64; PULSE 84; RESP 18; TEMP 97.8; O2SAT 90
[2017-06-04] MEDS: ACETAMINOPHEN 325 MG TAB PO PRN (02:22)
[2017-06-04] MEDS: CHLORHEXIDINE GLUCONATE 2 % 1 PACK (2 CLOTHS) TOP SCH (04:00)
[2017-06-04 06:05] VITALS: BP 111/56; PULSE 92; RESP 20; TEMP 97.8; O2SAT 90
[2017-06-04 08:00] VITALS: BP 150/68; PULSE 89; RESP 18; TEMP 97.2; O2SAT 91
[2017-06-04] MEDS: DULoxetine HCl DR 30 MG CAP PO SCH (09:00)
[2017-06-04] MEDS: DILTIAZEM-CD 120 MG CAP ER PO SCH (10:59)
[2017-06-04] MEDS: levETIRAcetam 500 MG TAB PO SCH (10:59)
[2017-06-04] MEDS: LEVOFLOXACIN 500 MG TAB PO SCH (10:59)
[2017-06-04] MEDS: DOCUSATE SODIUM 50 MG/SENNA 8.6 MG TAB PO SCH (10:59)
[2017-06-04] MEDS: METOPROLOL TARTRATE 25 MG TAB PO SCH (11:00)
[2017-06-04] MEDS: PANTOPRAZOLE SOD 40 MG DELAYED RELEASE TAB PO SCH (11:00)
[2017-06-04] MEDS: DIGOXIN 0.125 MG TAB PO SCH (11:00)
[2017-06-04] MEDS: SODIUM CHLORIDE 0.9% FLUSH 10 ML FLUSH IV FLUSH SCH (11:01)
[2017-06-04] MEDS: ACETAMINOPHEN/HYDROcodone 325 MG/5 MG TAB PO PRN ×2 (11:04→13:49)
--- NOTE | 2017-06-04 12:21 | HHI.NSPN ---
(Martir Mckoy) History Chief Complaint: Mild frontal headache at times. (Martir Mckoy) Interval History 05/29: 76-year-old female with a history of atrial fibrillation, on Coumadin, presented to the emergency room today with complaint of generalized weakness following a fall 2, 2 days ago without loss of consciousness. She was seen at an outside hospital emergency room and indicates that she has scan with no significant abnormalities. She came back to the emergency room today due to persistent weakness and dizziness. On initial CT scan imaging in the emergency room she was noted to have a small subdural hematoma. She was given [facility] and vitamin K as well as a 1 L normal saline infusion due to hypotension. 05/30/2017: Neurologic exam remained stable. Mild lethargy. 06/01/17: eating her breakfast, reports she ambulated yesterday and sat in chair. feeling well. eager to go home 06/02: The patient is asleep when seen but awakens to verbal stimuli. After that she is alert and readily interacts. She does endorse an intermittent right frontal headache as well as right knee pain. 06/04: The patient is awake and alert, watching TV and visiting with a friend. The patient says she is just sore all over. She does endorse an intermittent right frontal headache. She continues to have some abdominal wall and right knee pain from the fall. She does say she has a chronic right foot problem since she had a blood clot removed from the leg but no one is able to determine what is wrong. (Martir Mckoy) System Review Comments Constitutional: Patient states that she is sore all over. She denies any fever or chills. HEENT: Patient has some aching to the right upper forehead where she struck it. She denies any visual or hearing difficulty. Respiratory: Patient denies any shortness of breath or productive cough. Cardiovascular: Patient denies any chest pain, palpitations or irregular heartbeat. Gastrointestinal: Patient has some abdominal wall soreness from her fall. She denies any nausea or vomiting. She does have a colostomy. Genitourinary: Patient denies any incontinence of urine. Musculoskeletal: Patient complains of pain, swelling and bruising to the right knee. She says she has something wrong with her right foot that is chronic. She denies any pain to the back, neck or other extremities. Neurologic: Patient has an occasional right frontal headache. She denies any dizziness, numbness or tingling. (Martir Mckoy) Exam Results 06/02/17 06/02/17 06/03/17 06/03/17 06/04/17 06/04/17 05:59 17:59 05:59 17:59 05:59 17:59 Intake Total 1556 ml 1587 ml 600 ml 1294 ml Output Total 50 ml 10 ml 100 ml 500 ml 450 ml Balance 1506 ml 1577 ml 500 ml 794 ml -450 ml Intake Oral 520 ml 400 ml 600 ml 700 ml IV Total 1036 ml 1187 ml 594 ml Output Urine Total 500 ml 450 ml Stool Total 50 ml 10 ml 100 ml # Voids 3 2 5 4 2 2 # Bowel Movements 0 0 Vital Signs Date Time Temp Pulse Resp B/P (MAP) Pulse Ox O2 Delivery O2 Flow Rate FiO2 06/04/17 08:00 97.2 89 18 150/68 (95) 91 06/04/17 06:05 97.8 92 20 111/56 (74) 90 06/04/17 00:55 97.8 84 18 124/64 (84) 90 06/03/17 21:40 98.3 63 18 152/65 (94) 91 06/03/17 18:58 98.1 86 20 138/75 (96) 92 06/03/17 14:00 74 06/03/17 12:00 97.8 99 23 137/67 (90) 95 06/03/17 12:00 99 06/03/17 10:59 98 21 06/03/17 10:00 98 06/03/17 08:00 97.6 88 21 113/54 (73) 93 06/03/17 08:00 92 06/03/17 07:00 95 Nasal Cannula 2.00 06/03/17 06:00 92 06/03/17 04:00 90 06/03/17 04:00 98.2 90 23 123/59 (80) 88 06/03/17 02:00 86 06/03/17 00:00 97.8 91 26 121/59 (79) 89 06/03/17 00:00 91 06/02/17 22:00 108 06/02/17 20:29 93 21 06/02/17 20:00 99.8 96 26 141/59 (86) 93 06/02/17 20:00 96 06/02/17 19:00 93 Nasal Cannula 2.00 06/02/17 18:00 87 06/02/17 16:00 84 06/02/17 16:00 98.0 94 18 104/53 (70) 06/02/17 14:00 88 06/02/17 12:00 90 06/02/17 12:00 98.0 90 16 113/55 (74) 94 06/02/17 10:00 74 06/02/17 09:15 100 21 06/02/17 08:00 86 06/02/17 08:00 98.0 86 21 131/70 (90) 95 06/02/17 07:00 92 Nasal Cannula 2.00 06/02/17 06:00 84 06/02/17 04:00 88 06/02/17 04:00 98.4 88 24 103/53 (70) 90 06/02/17 02:00 92 06/02/17 00:00 98.5 98 23 119/59 (79) 95 06/02/17 00:00 98 06/01/17 22:00 88 06/01/17 20:40 97 Nasal Cannula 1.50 06/01/17 20:00 86 06/01/17 20:00 98.4 86 24 118/54 (75) 98 06/01/17 19:00 98 Nasal Cannula 2.00 06/01/17 18:00 89 06/01/17 16:00 78 06/01/17 16:00 98.2 87 20 102/51 (68) 97 06/01/17 14:00 81 (Martir Mckoy) Physical Examination GENERAL: The patient is awake & alert, watching TV and visiting w/a friend. She readily interacts and her affect is normal. NAD. SKIN: Warm, dry & intact. She does have ecchymosis to the right upper forehead and the right knee that is evolving. Ecchymosis also noted to right forearm. No rashes, ulcerations or other lesions noted. HEENT: Normocephalic, ecchymosis to the right superior forehead minimally TTP. PERRLA, EOMI. MMM & pink, tongue midline to protrusion. NECK: Full active ROM w/o pain, no JVD, trachea midline. CARDIOVASCULAR: S1S2 irregularly irregular w/grade II/ murmur, radial & pedal pulses 2+ bilaterally, cap refill < 2 sec, no pedal edema. RESPIRATORY: CTAB w/o W/R/R, equal excursion, nonlaboured, on RA. GASTROINTESTINAL: Abdomen soft, nontender, positive bowel sounds. MUSCULOSKELETAL: MERRILL w/o difficulty, no evident deformity or clubbing, swelling & ecchymosis to right knee which is TTP. NEUROLOGICAL: AAOx3. Speech clear & appropriate. CN II-XII appear grossly intact. Sensation intact to light touch to all extremities. Strength symmetrical to all major flexion & extension muscle groups. (Martir Mckoy) Medical Decision Making Impression and Plan Impression: 1. Thin right tentorial subdural hematoma in patient with chronic atrial fibrillation on Coumadin. 2. Hypertension 3. History of dyslipidemia 4. History of atrial fibrillation Patient continues to do well and remains neurologically intact. Plan: Primary management per Hospitalist. Continue neuro checks. Stat CT brain for any decrease in neuro status. Hold anticoagulation. Mobilise patient with assistance. PT/OT eval & tx. Patient may be discharged to inpatient rehab from NSGY's perspective. (Martir Mckoy) Attending Statement The exam, history, and the medical decision-making described in the above note were completed with the assistance of the mid-level provider. I reviewed and agree with the findings presented. I attest that I had a [id number] encounter with the patient on the same day, and personally performed and documented my assessment and findings in the medical record. Patient remains awake and alert. No focal neurologic deficit plan of headache Progressing in therapy Doing well following very mild tentorial subdural hematoma. Signs and symptoms watch were discussed with patient Stable for discharge to rehabilitation from neurosurgery standpoint I advised the patient that there is a very minimal risk of chronic subdural hematoma formation. Signs and symptoms to watch for fully discussed. She will notify her physicians of any significant changes occur. Follow-up palpation neurosurgery evaluation is needed. (Guilherme Peterson MD) Martir Mckoy Jun 04, 2017 12:21 Guilherme Peterson MD Jul 13, 2017 11:55
[2017-06-04 12:34] VITALS: BP 120/65; PULSE 97; RESP 18; TEMP 97.7; O2SAT 94
--- NOTE | 2017-06-04 13:03 | HHI.DCPOC ---
Discharge Care Plan Diagnosis: (1) Subdural hematoma (2) Pneumonia (3) Atrial fibrillation with RVR (4) HTN (hypertension) Goals to Promote Your Health * To prevent worsening of your condition and complications * To maintain your health at the optimal level Directions to Meet Your Goals Take your medications as prescribed Follow your dietary instruction Follow activity as directed Keep your appointments as scheduled Take your immunizations and boosters as scheduled If your symptoms worsen call your PCP, if no PCP go to Urgent Care Center or Emergency Room Smoking is Dangerous to Your Health. Avoid second hand smoke Call the 24-hour hour crisis hotline for domestic abuse at Armando Garcia MD Jun 04, 2017 13:03
--- NOTE | 2017-06-04 13:07 | HHI.FF ---
Face to Face Verification Diagnosis: (1) Atrial fibrillation with RVR (2) Pneumonia (3) Subdural hematoma Physical Therapy Order: Evaluate and Treat, Improve ambulation Home Health Nursing Order: Medical education Signs/symptoms of disease process Nursing assessment with vital signs I have seen patient Kimi Padilla on 06/04/17. My clinical findings support the need for the requested home health care services because: High risk of falls I certify that my clinical findings support that this patient is homebound because: Unsteady gait/balance Armando Garcia MD Jun 04, 2017 13:07
--- NOTE | 2017-06-04 13:09 | HHI.PR ---
Subjective Remarks pt was ok with going to rehab or home Objective Vitals heart reg lung cta abd s/nt ext no edema/right knee ecchymosis Vital Signs Date Time Temp Pulse Resp B/P (MAP) Pulse Ox O2 Delivery O2 Flow Rate FiO2 06/04/17 12:34 97.7 97 18 120/65 (83) 94 06/04/17 08:00 97.2 89 18 150/68 (95) 91 06/04/17 06:05 97.8 92 20 111/56 (74) 90 06/04/17 00:55 97.8 84 18 124/64 (84) 90 06/03/17 21:40 98.3 63 18 152/65 (94) 91 06/03/17 18:58 98.1 86 20 138/75 (96) 92 06/03/17 14:00 74 Result Diagram: 06/01/17 0430 06/02/17 0634 A/P Problem List: (1) Subdural hematoma ICD Codes: I62.00 - Nontraumatic subdural hemorrhage, unspecified Status: Acute Plan: Right tentorium subdural hematoma/small cortical hemorrhage right parietal field/acute right lower lobe pneumonia A. fib with RVR CHAD2-VASC 5 hypotension resolved. 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 Peterson/neurosurgery consulted repeat CT head 05/30 stable Goal keep systolic blood pressure less than 140-150 keppra for sz prophylaxis..stop tomorrow Keep head of bed at 30 Neurochecks cont dig/cardizem...converted to cardizem cd cardiology following anticoagulation reversed with vit k/ k centra..resume when ok with nsg. cont nebs. s/p abx rx ssi dvt prophylaxis PT. oob d/c home. f/u nsg to eval resuming coumadin. unable to get rehab bed and so far pt/family not interested in snf...plan for hhc/pt (2) Atrial fibrillation with RVR ICD Codes: I48.91 - Unspecified atrial fibrillation Status: Acute (3) Splenic infarct ICD Codes: D73.5 - Infarction of spleen (4) Gastroesophageal reflux disease ICD Codes: K21.9 - Gastro-esophageal reflux disease without esophagitis (5) IBS (irritable bowel syndrome) ICD Codes: K58.9 - Irritable bowel syndrome without diarrhea (6) History of DVT (deep vein thrombosis) ICD Codes: Z86.718 - Personal history of other venous thrombosis and embolism (7) Hiatal hernia ICD Codes: K44.9 - Diaphragmatic hernia without obstruction or gangrene (8) Diverticulosis ICD Codes: K57.90 - Diverticulosis of intestine, part unspecified, without perforation or abscess without bleeding (9) Chronic anticoagulation ICD Codes: Z79.01 - intermediate designer (current) use of anticoagulants (10) Leukocytosis ICD Codes: D72.829 - Elevated white blood cell count, unspecified (11) Pneumonia ICD Codes: J18.9 - Pneumonia, unspecified organism Status: Acute (12) HTN (hypertension) ICD Codes: I10 - Essential (primary) hypertension Status: Chronic (13) Hyperlipidemia ICD Codes: E78.5 - Hyperlipidemia, unspecified Status: Chronic (14) Current use of anticoagulant therapy ICD Codes: Z79.01 - MCC (current) use of anticoagulants Status: Chronic (15) SIRS (systemic inflammatory response syndrome) ICD Codes: R65.10 - Systemic inflammatory response syndrome (SIRS) of non- infectious origin without acute organ dysfunction Status: Acute (16) Depression ICD Codes: F32.9 - Major depressive disorder, single episode, unspecified Status: Chronic Problem Qualifiers (1) Gastroesophageal reflux disease: Qualified Codes: K21.9 - Gastro-esophageal reflux disease without esophagitis (2) IBS (irritable bowel syndrome): Qualified Codes: K58.9 - Irritable bowel syndrome without diarrhea (3) Diverticulosis: Qualified Codes: K57.90 - Diverticulosis of intestine, part unspecified, without perforation or abscess without bleeding (4) Leukocytosis: Qualified Codes: D72.829 - Elevated white blood cell count, unspecified (5) Pneumonia: Qualified Codes: J18.1 - Lobar pneumonia, unspecified organism (6) HTN (hypertension): Qualified Codes: I10 - Essential (primary) hypertension (7) Hyperlipidemia: Qualified Codes: E78.5 - Hyperlipidemia, unspecified (8) Depression: Qualified Codes: F32.9 - Major depressive disorder, single episode, unspecified Armando Garcia MD Jun 04, 2017 13:09
[2017-06-04 16:00] VITALS: BP 132/61; PULSE 101; RESP 18; TEMP 98; O2SAT 92
[2017-06-11] MEDS ORDERED: CARD180C5 PO (05:43)
[2017-06-11] MEDS ORDERED: IPRASOL NEB (05:43)
[2017-06-11] MEDS ORDERED: Furosemide IV PUSH (05:43)
[2017-06-11] MEDS ORDERED: HYDR-3516 PO (05:43)
[2017-06-11] MEDS ORDERED: PANT40TA3 PO (05:43)
[2017-06-11] MEDS ORDERED: POTA-243 PO (05:43)
[2017-06-11] MEDS ORDERED: METO-309 PO (05:43)
--- NOTE | 2017-07-05 14:50 | HHI.DS ---
Discharge Summary Admission Date May 29, 2017 at 14:48 Discharge Date: Jun 04, 2017 Admitting Diagnosis Subdural hematoma (1) Subdural hematoma Diagnosis: Principal ICD Codes: I62.00 - Nontraumatic subdural hemorrhage, unspecified Status: Acute (2) Atrial fibrillation with RVR Diagnosis: Principal ICD Codes: I48.91 - Unspecified atrial fibrillation Status: Acute (3) Splenic infarct Diagnosis: Principal ICD Codes: D73.5 - Infarction of spleen (4) Gastroesophageal reflux disease ICD Codes: K21.9 - Gastro-esophageal reflux disease without esophagitis (5) IBS (irritable bowel syndrome) Diagnosis: Secondary ICD Codes: K58.9 - Irritable bowel syndrome without diarrhea (6) History of DVT (deep vein thrombosis) Diagnosis: Secondary ICD Codes: Z86.718 - Personal history of other venous thrombosis and embolism (7) Hiatal hernia Diagnosis: Secondary ICD Codes: K44.9 - Diaphragmatic hernia without obstruction or gangrene (8) Diverticulosis Diagnosis: Secondary ICD Codes: K57.90 - Diverticulosis of intestine, part unspecified, without perforation or abscess without bleeding (9) Chronic anticoagulation Diagnosis: Secondary ICD Codes: Z79.01 - sas 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 developer (current) use of anticoagulants (10) HTN (hypertension) Diagnosis: Secondary ICD Codes: I10 - Essential (primary) hypertension Status: Chronic (11) Hyperlipidemia Diagnosis: Secondary ICD Codes: E78.5 - Hyperlipidemia, unspecified Status: Chronic (12) Current use of anticoagulant therapy Diagnosis: Secondary ICD Codes: Z79.01 - residential (current) use of anticoagulants Status: Chronic (13) SIRS (systemic inflammatory response syndrome) ICD Codes: R65.10 - Systemic inflammatory response syndrome (SIRS) of non- infectious origin without acute organ dysfunction Status: Acute (14) Depression ICD Codes: F32.9 - Major depressive disorder, single episode, unspecified Status: Chronic Hospital Course (1) Subdural hematoma ICD Codes: I62.00 - Nontraumatic subdural hemorrhage, unspecified Status: Acute Plan: Right tentorium subdural hematoma/small cortical hemorrhage right parietal field/acute right lower lobe pneumonia A. fib with RVR CHAD2-VASC 5 hypotension resolved. 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 Peterson/neurosurgery consulted repeat CT head 05/30 stable Goal keep systolic blood pressure less than 140-150 keppra for sz prophylaxis..stop tomorrow Keep head of bed at 30 Neurochecks cont dig/cardizem...converted to cardizem cd cardiology following anticoagulation reversed with vit k/ k centra..resume when ok with nsg. cont nebs. s/p abx rx ssi dvt prophylaxis PT. oob d/c rehab. f/u nsg to eval resuming coumadin (2) Atrial fibrillation with RVR ICD Codes: I48.91 - Unspecified atrial fibrillation Status: Acute (3) Splenic infarct ICD Codes: D73.5 - Infarction of spleen (4) Gastroesophageal reflux disease ICD Codes: K21.9 - Gastro-esophageal reflux disease without esophagitis (5) IBS (irritable bowel syndrome) ICD Codes: K58.9 - Irritable bowel syndrome without diarrhea (6) History of DVT (deep vein thrombosis) ICD Codes: Z86.718 - Personal history of other venous thrombosis and embolism (7) Hiatal hernia ICD Codes: K44.9 - Diaphragmatic hernia without obstruction or gangrene (8) Diverticulosis ICD Codes: K57.90 - Diverticulosis of intestine, part unspecified, without perforation or abscess without bleeding (9) Chronic anticoagulation ICD Codes: Z79.01 - residential (current) use of anticoagulants (12) HTN (hypertension) ICD Codes: I10 - Essential (primary) hypertension Status: Chronic (13) Hyperlipidemia ICD Codes: E78.5 - Hyperlipidemia, unspecified Status: Chronic (14) Current use of anticoagulant therapy ICD Codes: Z79.01 - sas sql developer (current) use of anticoagulants Status: Chronic (15) SIRS (systemic inflammatory response syndrome) ICD Codes: R65.10 - Systemic inflammatory response syndrome (SIRS) of non- infectious origin without acute organ dysfunction Status: Acute (16) Depression ICD Codes: F32.9 - Major depressive disorder, single episode, unspecified Status: Chronic Problem Qualifiers (1) Gastroesophageal reflux disease: Qualified Codes: K21.9 - Gastro-esophageal reflux disease without esophagitis (2) IBS (irritable bowel syndrome): Qualified Codes: K58.9 - Irritable bowel syndrome without diarrhea (3) Diverticulosis: Qualified Codes: K57.90 - Diverticulosis of intestine, part unspecified, without perforation or abscess without bleeding (4) Leukocytosis: Qualified Codes: D72.829 - Elevated white blood cell count, unspecified (5) Pneumonia: Qualified Codes: J18.1 - Lobar pneumonia, unspecified organism (6) HTN (hypertension): Qualified Codes: I10 - Essential (primary) hypertension (7) Hyperlipidemia: Qualified Codes: E78.5 - Hyperlipidemia, unspecified (8) Depression: Qualified Codes: F32.9 - Major depressive disorder, single episode, unspecified Pt Condition on Discharge: Stable Discharge Disposition: Rehab Inpatient Discharge Instructions DIET: Follow Instructions for: As Tolerated, No Restrictions Activities you can perform: Regular-No Restrictions Follow up Referrals: Neurosurgery - 2 Weeks with Guilherme Peterson MD PCP Follow-up - [address] Apple Continued Medications: Digoxin (Digoxin) 0.125 Mg Tab 0.125 MG PO DAILY for Regulate Heart Beat, #30 TAB [address] (Duloxetine DR) 30 Mg Capdr 30 MG PO DAILY, #30 CAP 0 Refills Discontinued Medications: Losartan (Losartan) 100 Mg Tab 100 MG PO DAILY for Blood Pressure Management, #30 TAB 0 Refills Warfarin (Warfarin) 2.5 Mg Tab 2.5 MG PO DAILY for Blood Clot Prevention, #30 TAB 0 Refills Armando Garcia MD Jul 05, 2017 14:50
== END 2017-06-04 19:20 | DRG 85 ==
LOC: NEPC 11:22 → NEDA 14:48 → N03A 15:52 → N05A 06-03 15:26
PROVIDERS: ADMIT Internal Medicine Critical Care Medicine; ATTEND Internal Medicine Critical Care Medicine
PROC: 05HM33Z Insertion of Infusion Device into Right Internal Jugular Vein, Percutaneous Approach (ICD-10-PCS; principal; 2017-05-29)
PROC: 30233K1 Transfusion of Nonautologous Frozen Plasma into Peripheral Vein, Percutaneous Approach (ICD-10-PCS; 2017-05-30)
PROC: 30233N1 Transfusion of Nonautologous Red Blood Cells into Peripheral Vein, Percutaneous Approach (ICD-10-PCS; 2017-05-30)
DX: S06.5X0A Traumatic subdural hemorrhage without loss of consciousness, initial encounter (principal); J18.1 Lobar pneumonia, unspecified organism; I48.2 Chronic atrial fibrillation; D64.9 Anemia, unspecified; I10 Essential (primary) hypertension; S80.01XA Contusion of right knee, initial encounter; F32.9 Major depressive disorder, single episode, unspecified; S06.300A Unspecified focal traumatic brain injury without loss of consciousness, initial encounter; W01.0XXA Fall on same level from slipping, tripping and stumbling without subsequent striking against object, initial encounter; Y93.01 Activity, walking, marching and hiking; R73.9 Hyperglycemia, unspecified; Z79.01 Long term (current) use of anticoagulants; Y92.002 Bathroom of unspecified non-institutional (private) residence as the place of occurrence of the external cause; Z96.653 Presence of artificial knee joint, bilateral; M19.90 Unspecified osteoarthritis, unspecified site; E78.00 Pure hypercholesterolemia, unspecified; K21.9 Gastro-esophageal reflux disease without esophagitis; K44.9 Diaphragmatic hernia without obstruction or gangrene; E04.9 Nontoxic goiter, unspecified; K57.90 Diverticulosis of intestine, part unspecified, without perforation or abscess without bleeding; K58.9 Irritable bowel syndrome, unspecified; G47.33 Obstructive sleep apnea (adult) (pediatric); Z86.718 Personal history of other venous thrombosis and embolism; Z82.49 Family history of ischemic heart disease and other diseases of the circulatory system; Z80.0 Family history of malignant neoplasm of digestive organs; Z93.3 Colostomy status
CPT/HCPCS: 36430; 36556; 70450; 71010; 72170; 72192; 73560; 76937; 80048; 80053; 80162; 80202; 81001; 82550; 82552; 83735; 83880; 84100; 84443; 84484; 85018; 85025; 85027; 85610; 85730; 86850; 86900; 86901; 86920; 86927; 87040; 93005; 94150; 96361; 96365; 96375; C9132; J1160; J1940; J1953; J1956; J2270; J2370; J2405; J3370; J3475; J7030; J7040; J7050; P9016; P9017; Q9963

== ENCOUNTER 2017-06-11 06:07 | Inpatient (IN) | payer MEDICARE ==
[2017-06-11] VITALS (11 sets, daily range): BP systolic 112–126; BP diastolic 51–67; PULSE 90–156; RESP 10–23; TEMP 98–100.9; O2SAT 93–98
[~2017-06-11] VITALS: Ht 170.2 cm; Wt 80.4 kg
[~2017-06-11 06:07] MED LIST changes: -BENZ100 PO; +CARD180C5 PO; +CART120C PO; +DIGO0.12 PO; -DILTCD240 PO; +DULO1CAP2 PO; -FENO50TA PO; +FURO1TAB60 PO; -FURO20 PO; +Furosemide IV PUSH; +HYDR-3516 PO; -HYDR1CRE TOP; +IPRASOL NEB; +K-TA10TA PO; -LORA.5 PO; +METO-309 PO; -METO25 PO; +METO25TA3 PO; -OXYC5 PO; +PANT40TA3 PO; +POTA-243 PO; -PRAV40TA PO; -RANI150 PO; -TEMA15 PO
[2017-06-11] MEDS ORDERED: DILTIAZEM HCL 25 MG/5 ML VIAL IV PUSH ONE (06:15)
[2017-06-11] MEDS ORDERED: DILTIAZEM INJ 125 MG in SODIUM CHLORIDE 0.9% INJ 100 ML IV PRN (06:15)
[2017-06-11] MEDS ORDERED: levETIRAcetam 1000 MG INJ 100 ML IV ONE (06:15)
[2017-06-11] MEDS ORDERED: SODIUM CHLORIDE 0.9% FLUSH 10 ML FLUSH IV FLUSH PRN (06:30)
[2017-06-11] MEDS ORDERED: BISACODYL 10 MG SUPP RECTAL PRN (06:30)
[2017-06-11] MEDS ORDERED: MISCELLANEOUS NURSING INFORMATION XX SCH (06:30)
[2017-06-11] MEDS ORDERED: RESP: ALBUTEROL 2.5 MG/3 ML NEB (PRN) INH (06:30)
[2017-06-11] MEDS ORDERED: ACETAMINOPHEN 325 MG TAB PO PRN (06:30)
[2017-06-11] MEDS ORDERED: CHLORHEXIDINE GLUCONATE 2 % 1 PACK (2 CLOTHS) TOP PRN (06:30)
[2017-06-11] MEDS ORDERED: MAGNESIUM HYDROXIDE SUSP 30 ML CUP PO PRN (06:30)
[2017-06-11] MEDS ORDERED: LORazepam 2 MG/ML VIAL IV PUSH PRN (06:30)
[2017-06-11] MEDS ORDERED: SENNOSIDES 8.6 MG TAB PO PRN (06:30)
[2017-06-11] MEDS ORDERED: LACTULOSE SYRUP 20 GM/30 ML CUP PO PRN (06:30)
[2017-06-11] MEDS ORDERED: ONDANSETRON HCL 4 MG/2 ML VIAL IV PUSH PRN (06:30)
[2017-06-11 06:36] LABS: BLOOD GAS BASE EXCESS 4.8 mmol/L (-2-2); BLOOD GAS CARBOXYHEMOGLOBIN 2.1 % (0-4); BLOOD GAS HCO3 29 mmol/L (22-26); BLOOD GAS METHEMOGLOBIN 0.7 % (0-2); BLOOD GAS O2 HGB SATURATION 92 % (90-100); BLOOD GAS OXYGEN CONTENT 14.3 Vol % (12.0-20.0); BLOOD GAS PCO2 48 mmHg (38-42); BLOOD GAS PO2 75 mmHg (61-120); TEMP CORR TO 98.6
[2017-06-11 06:37] LABS: CRITICAL VALUE NO; DRAW SITE RT RADIAL; LITER FLOW 5 L/M; NUMBER OF ARTERIAL PUNCTURES 1; OXYGEN DEVICE NASAL CANNULA; STAT YES; ULNAR PULSE PRESENT
[2017-06-11] MEDS: SODIUM CHLOR 0.9% 1000 ML INJ 1,000 ML IV SCH ×2 (06:37→13:10)
--- NOTE | 2017-06-11 06:46 | HHI.HP ---
[facility] Service Critical Care Medicine Primary Care Physician Shad Apple M.D. Admission Diagnosis Seizure in a patient with history of increased density at the right tentorium and posterior right interhemispheric fissure consistent with an evolving subdural hemorrhage Diagnosis: (1) Seizure Diagnosis: Principal (2) Atrial fibrillation with RVR Diagnosis: Principal (3) Morbid obesity with BMI of 40.0-44.9, adult Diagnosis: Principal (4) Hematoma of iliopsoas muscle Diagnosis: Principal (5) Closed traumatic brain injury Diagnosis: Principal (6) HTN (hypertension) Diagnosis: Principal (7) Hyperlipidemia Diagnosis: Principal (8) Depression Diagnosis: Principal (9) Subdural hematoma Diagnosis: Principal Chief Complaint: Patient sat up and yelled and became unresponsive in [facility]. Currently is conjugate gaze towards right however protecting airway Travel History International Travel<30 Days: No Contact w/Intl Traveler <30 Da: No Traveled to Known Affected Are: No Sepsis Criteria SIRS Criteria (2 or more): RR > 20 or PaCO2 < 32 History of Present Illness This is a 76-year-old female. Date of transfer from [facility] 06/11/2017. Past medical history includes atrial fibrillation on chronic anticoagulation with warfarin, hypertension, history of a colovesicular fistula, depression. Patient was originally admitted to [facility] 05/29 status post fall to her head which revealed a subdural hematoma involving the right tentorium with small critical hemorrhage on the right parietal field. Patient was evaluated by Dr. Peterson with no intervention planned. He is originally treated with levetiracetam 500 mg IV twice daily for 7 days. She is also on duloxetine 30 mg daily for depression. Patient was also seen in consultation by Dr. Matos for atrial fibrillation with RVR. . She is initially treated with diltiazem drip with a phenylephrine drip for hypotension. Phenylephrine drip was discontinued after 1 day. Patient currently not a candidate for any quickly she. Possibly can affirm watchman program in 6-8 weeks. She is also received treatment to the right lower lobe pneumonia and complete antibiotic therapy At 540, I was notified by [facility] RN to go to [facility] on a floor because "patient need to be intubated." I walked if there are arrived at 5:45 AM. During that time, the patient was in transit while being manually bag to room 1313. I arrived in [facility] 8 minutes later after walking across the hospital to evaluate the patient. Upon arrival, patient was receiving Ambu bag resuscitation. Patient is now responsive to voice and noxious stimuli however has a right-sided gaze. She is withdrawing to pain right upper and left upper greater than bilateral lower extremities. She received 1 mg of lorazepam around 0605. Orders for stat CT, loading with levetiracetam 1000 mg all ordered. All laboratories currently ordered as well and pending Review of Systems ROS Limitations: Altered Mental Status Past Family Social History Allergies: Coded Allergies: codeine (Verified Allergy, Severe, NAUSEA, 05/29/17) piperacillin (Verified Allergy, Intermediate, Rash, 05/29/17) tazobactam (Verified Allergy, Intermediate, Rash, 05/29/17) Past Medical History Gastroesophageal reflux disease Hypertension Dyslipidemia Chronic atrial fibrillation Obstructive sleep apnea Hiatal hernia IBS History of splenic infarction History DVT right lower extremity status post embolectomy Depression Iliopsoas hematoma Depression Past Surgical History Lap-assisted loop colostomy with revision of Dr. Wetzel History of lower extremity embolectomy Dr. Mo Cholecystectomy Bilateral total knee replacements with revision of the left knee Cataracts/IOC Reported Medications Duo nebs every 4 hours when necessary Digoxin 0.125 mg by mouth daily Lopressor 50 mill grams by mouth twice a day Diltiazem extended release 180 mg by mouth daily Lehr 5/250 one tablet every 4 hours when necessary pain Duloxetine 30 mg by mouth daily Potassium chloride 20 mEq by mouth daily Pantoprazole 40 mg by mouth daily Furosemide 20 mg IV twice a day Active Ordered Medications Reviewed in EMR Family History Mother from pancreatic cancer. Father from microinfarction. Social History No tobacco, alcohol or IV drug use Physical Exam Vital Signs Vital Signs Date Time Temp Pulse Resp B/P (MAP) Pulse Ox O2 Delivery O2 Flow Rate FiO2 06/11/17 06:11 93 Nasal Cannula 5.00 06/11/17 05:10 95 15.00 100 Physical Exam GENERAL: This is a 76 year old female, critically ill currently resting in bed on nasal cannula SKIN: Warm and dry. Unstageable sacral decubitus ulcer HEAD: Atraumatic. Normocephalic. EYES: Right pupil around 3 mm and reactive. Left pupil around 4 mm and reactive. No scleral icterus.No injection or drainage. ENT: No nasal bleeding or discharge. Mucous membranes pink and moist. Oropharynx without erythema NECK: Trachea midline. No JVD. CARDIOVASCULAR: Tachycardia, IR. S1, S2 no S4 without murmur RESPIRATORY: Few crackles patient the right lower lobe. No end extremity wheezes. Symmetrical excursion. GASTROINTESTINAL: Abdomen soft, non-tender, nondistended. Ostomy site in the right lower quadrant viable and pink MUSCULOSKELETAL: Extremities with obvious edema/evolving ecchymoses involving right knee. Multiple abrasions/old bilateral lower extremities status post fall 2 weeks ago NEUROLOGICAL: GCS currently around 9 - [id number] with rightward gaze on noxious stimulation. Withdrawals bilateral upper greater than bilateral lower extremities. Laboratory All labs pending Imaging CT brain/chest x-ray pending Caprini VTE Risk Assessment Caprini VTE Risk Assessment: Mod/High Risk (score >= 2) VTE Pharm Contraindication: Hemorrhage Caprini Risk Assessment Model Point Value = 1 Point Value = 2 Point Value = 3 Point Value = 5 Age 41-60 Minor surgery BMI > 25 kg/m2 Swollen legs Varicose veins or History of unexplained or recurrent spontaneous Oral contraceptives or hormone replacement Sepsis (< 1 month) Serious lung disease, including pneumonia (< 1 month) Abnormal pulmonary function Acute myocardial infarction Congestive heart failure (< 1 month) History of inflammatory bowel disease Medical patient at bed rest Age 61-74 Arthroscopic surgery Major open surgery (> 45 min) Laparoscopic surgery (> 45 min) Malignancy Confined to bed (> 72 hours) Immobilizing plaster cast Central venous access Age >= 75 History of VTE Family history of VTE Factor V Leiden Prothrombin [id number] Lupus anticoagulant Anticardiolipin antibodies Elevated serum homocysteine Heparin-induced thrombocytopenia Other congenital or acquired thrombophilia Stroke (< 1 month) Elective arthroplasty Hip, pelvis, or leg fracture Acute spinal cord injury (< 1 month) Prophylaxis Regimen Total Risk Factor Score Risk Level Prophylaxis Regimen 0-1 Low Early ambulation 2 Moderate Order ONE of the following: *Sequential Compression Device (SCD) *Heparin 5000 units SQ BID 3-4 Higher Order ONE of the following medications: *Heparin 5000 units SQ TID *Enoxaparin/Lovenox 40 mg SQ daily (WT < 150 kg, CrCl > 30 mL/min) *Enoxaparin/Lovenox 30 mg SQ daily (WT < 150 kg, CrCl > 10-29 mL/min) *Enoxaparin/Lovenox 30 mg SQ BID (WT < 150 kg, CrCl > 30 mL/min) AND/OR *Sequential Compression Device (SCD) 5 or more Highest Order ONE of the following medications: *Heparin 5000 units SQ TID (Preferred with Epidurals) *Enoxaparin/Lovenox 40 mg SQ daily (WT < 150 kg, CrCl > 30 mL/min) *Enoxaparin/Lovenox 30 mg SQ daily (WT < 150 kg, CrCl > 10-29 mL/min) *Enoxaparin/Lovenox 30 mg SQ BID (WT < 150 kg, CrCl > 30 mL/min) AND *Sequential Compression Device (SCD) Assessment and Plan Assessment and Plan Neuro/Psych: TBI 06/14 status post fall Right parafalcine subdural hematoma with a small cortical hemorrhage. Depression Cataracts/IOC Seizure currently postictal CT brain 05/29 revealed small parafalcine posterior subdural hematoma involving the right tentorium, with a small cortical hemorrhage involving the right parietal field. Repeat CT brain 06/08 revealed evolving subdural hematoma with no new acute bleeding Evaluated by Dr. Peterosn. No intervention at that time. CT brain 06/11 pending EEG pending. Prolactin pending. Patient received 1 mg of lorazepam with minimal change in symptomatology Currently being loaded with levetiracetam 1 g followed by 500 mg IV twice a day Seizure precautions Currently holding duloxetine 30 mg by mouth daily for depression Keep head of bed at 30 CV: Atrial fibrillation with RVR Hypertension Dyslipidemia Chronic systolic heart failure Echocardiogram 06/14 revealed Normal left ventricular size. Wall thickness is normal. The left ventricular systolic function is moderately reduced with an estimated ejection fraction in the range of 40-45%. The right ventricular systoilc function is moderately decreased. A moderate left sided pleural effusion is noted. Initiated on diltiazem drip goal to keep heart rate less than 100. Recheck digoxin level today. Previously on 0.125 mg by mouth daily Home medications include Lopressor 50 mg twice a day, diltiazem 180 mg daily and digoxin 0.125 mg daily Evaluated by Dr. Matos last admission. Evaluation for possible ablation/ watchman program in near future per his notes TSH/CPK and troponin all pending. Electrolytes pending. Holding furosemide 20 mEq IV twice a day Resp: Recent right lower lobe pneumonia History of JACOB? Left lower lobe effusion likely transudative Nasal cannula to maintain saturations greater than equal to 92%. Currently 5 L. Incentive spirometry while awake Placed on albuterol nebulizers every 2 hours. Dyspnea Chest x-ray pending ABG essentially normal on 5 L nasal cannula. GCS greater than 8. No immediate indication for intubation at this time. 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 Wetzel Patient is currently nothing by mouth Pantoprazole for GI prophylaxis Docusate sodium/senna 1 tablet twice a day for bowel regimen Ostomy cares : Jenkins catheter if indicated for accurate I's and O's in a critically ill patient Endo: Sliding-scale insulin with Accu-Cheks to maintain euglycemia/low regimen with Novulog TSH pending Renal: BMP still pending. Monitor urine output Accurate I's and O's Currently on normal saline at 84 cc an hour Heme: History of chronic warfarin use History of right femoral artery DVT -embolectomy Dr. Mo at [facility] CHADs VASc score 2. Will require anticoagulation at some point in the future CBC/coags all pending Warfarin reversed with prothrombin complex concentrate with 35 units per kilogram IV with 10 mg vitamin K ID: Monitor for infection Chest x-ray/UA PENDING. MSK: Sacral decubitus ulcer stage IV Wound care evaluate and treat PT/OT evaluate and treat FEN: Replace electrolytes as clinically indicated All laboratories pending Access - Utilize peripheral IV. Central line if indicated Prophylaxis - GI - pantoprazole - DVT - SCD/pharmacological prophylaxis contraindicated with subdural hematoma with current seizures with CT brain pending. Resume when okay with neurosurgery Critical Care: The total critical care time was 35 minutes. Time to perform other separately billable procedures was not included in the critical care time. Discussed with son at bedside. Discussed with my partner Dr. Marina. Laboratories and imaging to be followed up. Patient is at high risk for decompensation including requiring intubation for altered mental status. Currently being infused with levetiracetam. Cardizem drip to be initiated. Code Status Full code Discussed Condition With Son. Care plan discussed and all questions answered. Problem Qualifiers (1) Hematoma of iliopsoas muscle: Qualified Codes: S70.10XS - Contusion of unspecified thigh, sequela (2) Closed traumatic brain injury: Qualified Codes: S06.9X0D - Unspecified intracranial injury without loss of consciousness, subsequent encounter (3) HTN (hypertension): Qualified Codes: I10 - Essential (primary) hypertension (4) Hyperlipidemia: Qualified Codes: E78.5 - Hyperlipidemia, unspecified (5) Depression: Qualified Codes: F32.9 - Major depressive disorder, single episode, unspecified Stefan Garcia MD Jun 11, 2017 06:46
[2017-06-11] MEDS: DILTIAZEM 125 MG/NS 100 ML IV PRN ×4 (06:56→15:39)
[2017-06-11 07:29] LABS: BACTERIA, URINE FEW /hpf; BLOOD, URINE NEG (NEG); COMMENT (UR) CATH-CULTURE IND; CULTURE IF INDICATED CATH CULTURE IND; GLUCOSE,URINE NEG (NEG); HYALINE CAST, URINE 13 /lpf (RARE); KETONE, URINE NEG (NEG); MUCUS URINE FEW /lpf (OCC); NITRITE,URINE NEG (NEG); SQUAMOUS EPITHELIAL CELL URINE <1 /hpf (0-5); URINE COLOR YELLOW (YELLW/STRAW)
--- NOTE | 2017-06-11 08:24 | RADRPT ---
EXAM DATE/TIME: 06/11/2017 07:51 [facility] COMPARISON: CT BRAIN W/O CONTRAST, May 30, 2017, 9:21. CT BRAIN W/O CONTRAST, June 08, 2017, 20:13. INDICATIONS : Seizure, evaluate bleed RADIATION DOSE: 32.19 CTDIvol (mGy) MEDICAL HISTORY : Hypertension. Gastroesophageal reflux disease. SURGICAL HISTORY : Colon resection. Cholecystectomy. ENCOUNTER: Subsequent ACUITY: 1 day PAIN SCALE: Non-responsive LOCATION: Cranial TECHNIQUE: Multiple contiguous axial images were obtained of the head. Using automated exposure control and adj ustment of the mA and/or kV according to patient size, radiation dose was kept as low as reasonably a chievable to obtain optimal diagnostic quality images. DICOM format image data is available electro nically for review and comparison. FINDINGS: There has been interval resolution of the high density in the region of the right tentorium suggesting resolving right tentorial subdural hematoma. No acute hemorrhage, acute infarct, midline shift or extra-axial bleed is noted on today's examination. The ventricles, sulci and cisterns are stable. The previously noted small subdural hematoma within the right parietal region is difficult to identify on today's e xamination and likely is resolved. CONCLUSION: Resolving right parietal and right tentorial subdural hematomas with no evidence of new acute hemorrh age, acute infarct, midline shift or extra-axial bleed. Dez Slaughter MD on June 11, 2017 at 8:06 Board Certified Radiologist. This report was verified electronically.
--- NOTE | 2017-06-11 08:27 | RADRPT ---
EXAM DATE/TIME: 06/11/2017 07:27 [facility] COMPARISON: CHEST SINGLE AP, June 07, 2017, 15:04. INDICATIONS : Shortness of breath. MEDICAL HISTORY : Cardiovascular disease. Hypertension. Diverticulitis SURGICAL HISTORY : None. ENCOUNTER: Initial ACUITY: 1 day PAIN SCORE: Non-responsive. LOCATION: Bilateral upper chest FINDINGS: Bibasilar patchiness is noted consistent with atelectasis and/or mild infiltrates. Small left pleur al effusion is stable. The heart is stable. Degenerative changes and scoliosis of the thoracic spin e are noted. CONCLUSION: 1. Bibasilar patchiness consistent with atelectasis and/or infiltrates. 2. Small left pleural effusion is stable. 3. Degenerative changes and scoliosis of the thoracic spine. Dez Slaughter MD on June 11, 2017 at 8:15 Board Certified Radiologist. This report was verified electronically.
[2017-06-11] MEDS: DOCUSATE SODIUM 50 MG/SENNA 8.6 MG TAB PO SCH ×2 (08:40→21:00)
[2017-06-11] MEDS: ARTIFICIAL TEARS OPTH SOLN 15 ML BTL EACH EYE SCH ×3 (08:51→16:44)
[2017-06-11] MEDS: SODIUM CHLORIDE 0.9% FLUSH 10 ML FLUSH IV FLUSH SCH ×2 (08:52→21:55)
[2017-06-11] MEDS: levETIRAcetam INJ 500 MG in SODIUM CHLORIDE 0.9% INJ 100 ML IV SCH ×2 (08:52→21:55)
[2017-06-11] MEDS: PANTOPRAZOLE SODIUM 40 MG VIAL IV PUSH SCH (08:53)
[2017-06-11] MEDS ORDERED: DIGOXIN 0.125 MG TAB PO SCH (09:00)
--- NOTE | 2017-06-11 11:01 | MB ---
cc: RALEIGH PARIS M.D. DATE OF CONSULTATION: 06/11/2017 HISTORY OF PRESENT ILLNESS A 76-year-old woman seen in neurological consultation. This patient was in this hospital on May 29 with fall and some subdural hematoma on the right tentorium and parietal lobe. She was treated conservatively and transferred to [facility]. She has a history of atrial fibrillation on chronic anticoagulation with Warfarin. Early this morning she apparently had a drop in her O2 sat and became poorly responsive. She was transferred to the intensive care unit reportedly having a right-sided gaze and possibly having had seizures. She received Ativan 1 mg at 06:05. She also was loaded with Keppra 1000 mg. She went for a CT brain which showed evolving subdural hematomas. The medications reported included Duloxetine, [place], Diltiazem, Lasix, digoxin and previously on Coumadin as discussed above. EXAMINATION On exam the patient was awake breathing on her own and following simple commands. She is aware of her age and seems to have insight in a partial manner. She has some left-sided neglect and left visual field impairment. She first responds with a right-sided upon request for moving extremities, etc. Her pupils were about the same size, reactive. No obvious facial weakness. Reflexes were present at the knees, trace versus absent at the ankles and plantar responses probably flexor bilaterally. 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 ASSESSMENT Transient decreased responsiveness, presumably seizure. Loaded with Keppra and Ativan given. She seems to be improving. At this point she is going to continue the Keppra and her CT brain shows evolving/resolving right parietal and right tentorial subdural hematomas. An EEG may have already been obtained and I will follow on these. Resume rehab if stable within the next 24 hours. There is a history of atrial fibrillation and previously on Coumadin but evidently not a candidate for anticoagulation with her recent intracranial hemorrhage. Thank you for asking us to assist in her care. Raleigh Paris MD OFC/TLL /10:25 AM /10:41 AM
[2017-06-11] MEDS: DIGOXIN 0.5 MG/2 ML VIAL IV PUSH SCH (12:18)
[2017-06-11 12:43] LABS: AUTOMATED NEUTROPHIL # 8.9 TH/MM3 (1.8-7.7); BASOPHIL % 0.4 % (0.0-2.0); HEMATOCRIT 34.2 % (35.0-46.0); HEMO FLAGS DIFF FINAL; LYMPH % 12.5 % (9.0-44.0); LYMPHOCYTE # 1.4 TH/MM3 (1.0-4.8); MEAN CELL VOLUME 93.8 FL (80.0-100.0); MEAN CORPUSCULAR HEMOGLOBIN 31.7 PG (27.0-34.0); MEAN CORPUSCULAR HGB CONC 33.7 % (32.0-36.0); MONO % 4.9 % (0.0-8.0); NEUT % 82.2 % (16.0-70.0); PLATELET COUNT 256 TH/MM3 (150-450); RED BLOOD COUNT 3.64 MIL/MM3 (4.00-5.30); RED CELL DISTRIBUTION WIDTH 16.5 % (11.6-17.2); WHITE BLOOD COUNT 10.9 TH/MM3 (4.0-11.0)
[2017-06-11 12:50] LABS: APTT (PATIENT) 23.3 SEC (24.3-30.1); PROTHROMBIN TIME - PATIENT 11.6 SEC (9.8-11.6)
[2017-06-11 13:03] LABS: ANION GAP 8 MEQ/L (5-15); AST (GOT) 37 U/L (15-37); BICARBONATE 31.2 MEQ/L (21.0-32.0); BLOOD UREA NITROGEN 22 MG/DL (7-18); CHLORIDE 98 MEQ/L (98-107); GLOMERULAR FILTRATION RATE 68 ML/MIN (>89); MAGNESIUM 1.8 MG/DL (1.5-2.5); SODIUM (NA) 137 MEQ/L (136-145)
[2017-06-11 13:18] LABS: ALKALINE PHOSPHATASE 160 U/L (45-117); ALT (GPT) 17 U/L (10-53); FREE T4 1.72 NG/DL (0.76-1.46); TOTAL BILIRUBIN ADULT 1.2 MG/DL (0.2-1.0)
[2017-06-11] MEDS ORDERED: DIGOXIN 0.5 MG/2 ML VIAL IV PUSH ONE (14:15)
--- NOTE | 2017-06-11 14:27 | EKG ---
Date Performed: 06/11/2017 Time Performed: 06:29:58 PTAGE: 76 years EKG: Atrial fibrillation with rapid ventricular response. Low limb lead voltage Anterior infarct - age undetermined Low QRS voltages in precordial leads Compared to previous tracing the limb lead v oltage is much smaller, heart rate is faster Abnormal ECG PREVIOUS TRACING : 05/29/2017 12.07 DOCTOR: Armando Lind Interpretating Date/Time 06/11/2017 14:25:47
[2017-06-11] MEDS: ACETAMINOPHEN 650 MG/20.3 ML UDC PO PRN (14:45)
[2017-06-11] MEDS: RESP: ALBUTEROL 2.5 MG/IPRATROPIUM 0.5 MG NEB (SCH) NEB ×2 (16:06→21:07)
--- NOTE | 2017-06-11 16:07 | MG ---
cc: LISS FUENTES M.D. Lab No: [id number] Date: 06/11/2017 Age: Sex: F Race: TECHNIQUE 17-channel EEG. DESCRIPTION: The background rhythm reveals moderate slowing at 3-6 Hz, amplitude is 20-30 microvolts. There is fairly prominent muscle artifact. There are no epileptiform discharges present. There are no lateralizing features seen. Photic stimulation was done in a stepwise fashion with no significant driving response. INTERPRETATION Abnormal study consistent with a severe encephalopathy. MD HOWARD Resendiz/SHARON /3:34 PM /3:56 PM
--- NOTE | 2017-06-11 16:39 | HHI.PR ---
Subjective Remarks patient transferred to intensive care post seizure lethargic , but easily arousible Objective Vital Signs Date Time Temp Pulse Resp B/P (MAP) Pulse Ox O2 Delivery O2 Flow Rate FiO2 06/11/17 16:12 97 Nasal Cannula 2.00 06/11/17 16:00 100.9 109 23 112/51 (71) 96 06/11/17 16:00 109 06/11/17 15:39 110 119/55 06/11/17 14:00 121 06/11/17 12:00 130 06/11/17 12:00 100.8 130 21 126/60 (82) 98 06/11/17 10:00 129 06/11/17 09:00 123 109/65 06/11/17 08:00 100.2 132 19 116/59 (78) 95 06/11/17 08:00 95 Nasal Cannula 5.00 Humidified 06/11/17 08:00 122 06/11/17 08:00 132 116/59 06/11/17 06:56 132 117/79 06/11/17 06:15 100.5 156 10 117/67 (84) 93 06/11/17 06:11 93 Nasal Cannula 5.00 06/11/17 05:10 95 15.00 100 I/O 06/10/17 06/10/17 06/10/17 06/11/17 06/11/17 06/11/17 07:00 15:00 23:00 07:00 15:00 23:00 Intake Total 100 ml 1105 ml 250 ml Balance 100 ml 1105 ml 250 ml Intake IV Total 100 ml 1105 ml 250 ml Result Diagram: 06/11/17 1200 06/11/17 1200 Objective Remarks GENERAL: SKIN: Warm and dry. HEAD: Atraumatic. Normocephalic. EYES: Pupils equal and round. No scleral icterus. No injection or drainage. ENT: No nasal bleeding or discharge. Mucous membranes pink and moist. NECK: Trachea midline. No JVD. CARDIOVASCULAR: Regular rate and rhythm. RESPIRATORY: No accessory muscle use. Clear to auscultation. Breath sounds equal bilaterally. GASTROINTESTINAL: Abdomen soft, non-tender, nondistended. Hepatic and splenic margins not palpable. MUSCULOSKELETAL: Extremities without clubbing, cyanosis, or edema. No obvious deformities. NEUROLOGICAL: Awake and alert. No obvious cranial nerve deficits. Motor grossly within normal limits. Five out of 5 muscle strength in the arms and legs. Normal speech. PSYCHIATRIC: Appropriate mood and affect; insight and judgment normal. Medications and IVs Laboratory Tests Test 06/11/17 06:15 06/11/17 06:22 06/11/17 06:58 06/11/17 12:00 Blood Gas HCO3 29 mmol/L (22-26) Blood Gas Base Excess 4.8 mmol/L (-2-2) Arterial Blood Partial Pressure CO2 48 mmHg (38-42) Blood Gas Hemoglobin 11.0 G/DL (12.0-16.0) Urine Turbidity HAZY (CLEAR) Urine Protein 100 mg/dL (NEG-TRACE) Urine Bacteria FEW /hpf (NONE) Urine Mucus FEW /lpf (OCC) Red Blood Count 3.64 MIL/MM3 (4.00-5.30) Hemoglobin 11.5 GM/DL (11.6-15.3) Hematocrit 34.2 % (35.0-46.0) Neutrophils (%) (Auto) 82.2 % (16.0-70.0) Neutrophils # (Auto) 8.9 TH/MM3 (1.8-7.7) Activated Partial Thromboplast Time 23.3 SEC (24.3-30.1) Fibrinogen 382 mg/dL (227-377) Blood Urea Nitrogen 22 MG/DL (7-18) Random Glucose 143 MG/DL (74-106) Albumin 2.7 GM/DL (3.4-5.0) Alkaline Phosphatase 160 U/L (45-117) Total Bilirubin 1.2 MG/DL (0.2-1.0) Estimat Glomerular Filtration Rate 68 ML/MIN (>89) Troponin I 5.59 NG/ML (0.02-0.05) Free Thyroxine 1.72 NG/DL (0.76-1.46) Assessment and Plan Assessment and Plan respiratory failure tramatic IC BLEED AFIB SEIZURE DISORDER PLAN O2 NEEDED PULM TOILET NEURO FOLLOWING CXRAY NO ACUTE CHANGE Kay Villanueva MD Jun 11, 2017 16:39
[2017-06-11 18:56] LABS: INDIRECT BILIRUBIN 0.6 MG/DL (0.0-0.8); TOTAL BILIRUBIN ADULT 1.1 MG/DL (0.2-1.0)
[2017-06-12] VITALS (12 sets, daily range): BP systolic 87–146; BP diastolic 53–72; PULSE 100–134; RESP 20–28; TEMP 98.1–101.8; O2SAT 35–100
[2017-06-12] MEDS: RESP: ALBUTEROL 2.5 MG/IPRATROPIUM 0.5 MG NEB (SCH) NEB ×4 (04:00→22:18)
[2017-06-12 06:42] LABS: AUTOMATED NEUTROPHIL # 12.3 TH/MM3 (1.8-7.7); BASOPHIL # 0.1 TH/MM3 (0-0.2); BASOPHIL % 0.4 % (0.0-2.0); EOSINOPHIL % 0.1 % (0.0-4.0); HEMATOCRIT 34.8 % (35.0-46.0); HEMO FLAGS DIFF FINAL; LYMPH % 7.6 % (9.0-44.0); LYMPHOCYTE # 1.1 TH/MM3 (1.0-4.8); MEAN CELL VOLUME 97.1 FL (80.0-100.0); MEAN CORPUSCULAR HEMOGLOBIN 31.2 PG (27.0-34.0); MEAN CORPUSCULAR HGB CONC 32.2 % (32.0-36.0); MONO % 5.7 % (0.0-8.0); NEUT % 86.2 % (16.0-70.0); PLATELET COUNT 266 TH/MM3 (150-450); RED BLOOD COUNT 3.58 MIL/MM3 (4.00-5.30); RED CELL DISTRIBUTION WIDTH 16.8 % (11.6-17.2); WHITE BLOOD COUNT 14.2 TH/MM3 (4.0-11.0)
[2017-06-12 06:44] LABS: APTT (PATIENT) 23.8 SEC (24.3-30.1); INTERNATIONAL NORMALIZED RATIO 1.1 RATIO
[2017-06-12 07:25] LABS: MAGNESIUM 1.8 MG/DL (1.5-2.5)
[2017-06-12] MEDS: ARTIFICIAL TEARS OPTH SOLN 15 ML BTL EACH EYE SCH ×2 (07:33→13:00)
[2017-06-12] MEDS: SODIUM CHLORIDE 0.9% FLUSH 10 ML FLUSH IV FLUSH SCH ×2 (07:33→20:46)
[2017-06-12] MEDS: DIGOXIN 0.5 MG/2 ML VIAL IV PUSH SCH (07:37)
[2017-06-12] MEDS: levETIRAcetam INJ 500 MG in SODIUM CHLORIDE 0.9% INJ 100 ML IV SCH ×2 (07:38→20:46)
[2017-06-12] MEDS: PANTOPRAZOLE SODIUM 40 MG VIAL IV PUSH SCH (07:38)
[2017-06-12] MEDS: DOCUSATE SODIUM 50 MG/SENNA 8.6 MG TAB PO SCH ×2 (07:59→20:47)
[2017-06-12] MEDS ORDERED: POTASSIUM PHOSPHATE MONOBASIC 500 MG TAB PO/TUBE PRN (08:30)
[2017-06-12] MEDS ORDERED: POTASSIUM CHLOR 20 MEQ PREMIX 100 ML IV PRN ×2 (08:30)
[2017-06-12] MEDS ORDERED: MAGNESIUM OXIDE 400 MG TAB PO PRN (08:30)
[2017-06-12] MEDS ORDERED: MAGNESIUM SULFATE INJ 4 GM in SODIUM CHLORIDE 0.9% INJ 92 ML IV PRN (08:30)
[2017-06-12] MEDS ORDERED: POTASSIUM PHOSPHATE MONOBASIC 500 MG TAB PO PRN (08:30)
[2017-06-12] MEDS ORDERED: POTASSIUM CHLOR 40 MEQ PREMIX 100 ML IV PRN (08:30)
[2017-06-12] MEDS ORDERED: SODIUM PHOSPHATE INJ 30 MMOL in SODIUM CHLOR 0.9% 250 ML INJ 240 ML IV PRN (08:30)
[2017-06-12] MEDS ORDERED: POTASSIUM CHLORIDE 25 MEQ EFFERVESCENT TAB PO PRN (08:30)
[2017-06-12] MEDS ORDERED: MAGNESIUM SULFATE INJ 2 GM in SODIUM CHLORIDE 0.9% INJ 96 ML IV PRN (08:30)
[2017-06-12] MEDS ORDERED: DIGOXIN 0.5 MG/2 ML VIAL IV PUSH ONE (09:45)
[2017-06-12] MEDS: DILTIAZEM 125 MG/NS 100 ML IV PRN ×4 (10:16→19:13)
--- NOTE | 2017-06-12 10:46 | HHI.CCPN ---
Subjective Remarks/Hospital Course Seizure in a patient with history of increased density at the right tentorium and posterior right interhemispheric fissure consistent with an evolving subdural hemorrhage. 06/12: More alert later in day yesterday. Protects airway well. Required sedation last noc for severe agitation. Family is adamant that we give her sedation. We have tried to explain the risks but they insist. Will avoid benzo - try atypical antipsychotic geodon. Diagnosis: (1) Seizure Diagnosis: Principal (2) Atrial fibrillation with RVR Diagnosis: Principal (3) Morbid obesity with BMI of 40.0-44.9, adult Diagnosis: Principal (4) Hematoma of iliopsoas muscle Diagnosis: Principal (5) Closed traumatic brain injury Diagnosis: Principal (6) HTN (hypertension) Diagnosis: Principal (7) Hyperlipidemia Diagnosis: Principal (8) Depression Diagnosis: Principal (9) Subdural hematoma Diagnosis: Principal Objective Vital Signs Date Time Temp Pulse Resp B/P (MAP) Pulse Ox O2 Delivery O2 Flow Rate FiO2 06/12/17 10:16 147 122/69 06/12/17 09:45 97 Simple Mask 10.00 06/12/17 08:00 101.8 23 06/11/17 05:10 100 Intake and Output 06/12/17 06/12/17 06/13/17 08:00 16:00 00:00 Intake Total 25 ml 1821 ml Output Total 475 ml Balance -450 ml 1821 ml Result Diagram: 06/12/17 0610 06/11/[address] brain/chest x-ray pending Objective Remarks GENERAL: This is a 76 year old female, critically ill currently resting on NRBM. SKIN: Warm and dry. Unstageable sacral decubitus ulcer HEAD: Atraumatic. Normocephalic. EYES: Right pupil around 2 mm and reactive. Left pupil around 3 mm and reactive. No scleral icterus.No injection or drainage. ENT: No nasal bleeding or discharge. Mucous membranes pink and moist. Oropharynx without erythema NECK: Trachea midline. No JVD. Airway widely patent. CARDIOVASCULAR: Tachycardia, Irreg irreg. S1, S2 no S4 without murmur RESPIRATORY: Sparse crackles. No wheezes. Symmetrical excursion. GASTROINTESTINAL: Abdomen soft, non-tender, nondistended. Ostomy site in the right lower quadrant viable and pink MUSCULOSKELETAL: Extremities with obvious edema/evolving ecchymoses involving right knee. Multiple abrasions/old bilateral lower extremities status post fall 2 weeks ago NEUROLOGICAL: Opens eyes to voice. Moves 4 limbs. A/P Assessment and Plan Neuro/Psych: TBI 06/14 status post fall Right parafalcine subdural hematoma with a small cortical hemorrhage. Depression Cataracts/IOC Seizure currently postictal CT brain 05/29 revealed small parafalcine posterior subdural hematoma involving the right tentorium, with a small cortical hemorrhage involving the right parietal field. Repeat CT brain 06/08 revealed evolving subdural hematoma with no new acute bleeding Evaluated by Dr. Peterson. No intervention at that time. CT brain 06/11 pending EEG pending. Prolactin pending. Patient received 1 mg of lorazepam with minimal change in symptomatology Currently being loaded with levetiracetam 1 g followed by 500 mg IV twice a day Seizure precautions Currently holding duloxetine 30 mg by mouth daily for depression Keep head of bed at 30 CV: Atrial fibrillation with RVR Hypertension Dyslipidemia Chronic systolic heart failure Echocardiogram 06/14 revealed Normal left ventricular size. Wall thickness is normal. The left ventricular systolic function is moderately reduced with an estimated ejection fraction in the range of 40-45%. The right ventricular systoilc function is moderately decreased. A moderate left sided pleural effusion is noted. Initiated on diltiazem drip goal to keep heart rate less than 100. Recheck digoxin level today. Previously on 0.125 mg by mouth daily Home medications include Lopressor 50 mg twice a day, diltiazem 180 mg daily and digoxin 0.125 mg daily Evaluated by Dr. Matos last admission. Evaluation for possible ablation/ watchman program in near future per his notes TSH/CPK and troponin all pending. Electrolytes pending. Start furosemide 20 mEq IV twice a day Resp: Recent right lower lobe pneumonia History of JACOB? Left lower lobe effusion likely transudative Nasal cannula to maintain saturations greater than equal to 92%. Currently 5 L. Incentive spirometry while awake Placed on albuterol nebulizers every 2 hours. Dyspnea Chest x-ray pending ABG essentially normal on 5 L nasal cannula. 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 Wetzel Patient is currently nothing by mouth Pantoprazole for GI prophylaxis Docusate sodium/senna 1 tablet twice a day for bowel regimen Ostomy cares : Jenkins catheter if indicated for accurate I's and O's in a critically ill patient Endo: Sliding-scale insulin with Accu-Cheks to maintain euglycemia/low regimen with Novulog TSH pending Renal: BMP still pending. Monitor urine output Accurate I's and O's Currently on normal saline at 84 cc an hour Heme: History of chronic warfarin use History of right femoral artery DVT -embolectomy Dr. Mo at [facility] CHADs VASc score 2. Will require anticoagulation at some point in the future CBC/coags all pending Warfarin reversed with prothrombin complex concentrate with 35 units per kilogram IV with 10 mg vitamin K ID: Monitor for infection Chest x-ray/UA PENDING. MSK: Sacral decubitus ulcer stage IV Wound care evaluate and treat PT/OT evaluate and treat FEN: Replace electrolytes as clinically indicated All laboratories pending Access - Utilize peripheral IV. Central line if indicated Prophylaxis - GI - pantoprazole - DVT - SCD/pharmacological prophylaxis contraindicated with subdural hematoma with current seizures with CT brain pending. Resume when okay with neurosurgery Overall impression: New seizure. Atrial fibrillation with RVR. Cardiology following. Jimbo Marina MD Jun 12, 2017 10:46
[2017-06-12] MEDS ORDERED: FUROSEMIDE 40 MG/4 ML VIAL IV PUSH ONE (11:15)
[2017-06-12] MEDS ORDERED: ZIPRASIDONE MESYLATE 20 MG VIAL IM PRN (11:15)
[2017-06-12] MEDS: POTASSIUM PHOSPHATE INJ 30 MMOL in SODIUM CHLOR 0.9% 250 ML INJ 250 ML IV PRN (12:28)
--- NOTE | 2017-06-12 17:13 | HHI.PR ---
Review/Management Daily Summary 06/12 family at bedside she was sedated due to severe agitation no seizure recurrence continue [facility] monitor dr Yeager covering prn weekend Subjective Subjective Comments sedated when seen this afternoon Active Medications Current Medications Medications (Trade) Dose Ordered Sig/Lucina Route Start Time Stop Time Status Last Admin Levetriacetam 500 mg/Sodium Chloride 105 ml @ 420 mls/hr Q12HR IV 06/11/17 09:00 06/12/17 07:38 (NS Flush) 2 ml UNSCH PRN IV FLUSH 06/11/17 06:30 (NS Flush) 2 ml BID IV FLUSH 06/11/17 09:00 06/12/17 07:33 (Protonix Inj) 40 mg DAILY IV PUSH 06/11/17 09:00 06/12/17 07:38 (Tears Naturale Opth Soln) 1 drop TID EACH EYE 06/11/17 09:00 06/12/17 07:33 (Zofran Inj) 4 mg Q6H PRN IV PUSH 06/11/17 06:30 (Albuterol Neb) 2.5 mg Q2HR NEB PRN INH 06/11/17 06:30 Miscellaneous Information 1 Q361D XX 06/11/17 06:30 06/11/17 07:53 (Chlorhexidine 2% Cloth) 3 pack Taper DAILY@04 TOP 06/12/17 04:00 06/08/18 03:59 (Chlorhexidine 2% Cloth) 3 pack UNSCH PRN TOP 06/11/17 06:30 (Roxann-Colace) 1 tab BID PO 06/11/17 09:00 (Milk Of Magnesia Liq) 30 ml Q12H PRN PO 06/11/17 06:30 (Senokot) 17.2 mg Q12H PRN PO 06/11/17 06:30 (Dulcolax Supp) 10 mg DAILY PRN RECTAL 06/11/17 06:30 (Lactulose Liq) 30 ml DAILY PRN PO 06/11/17 06:30 Diltiazem HCl 125 mg/Sodium Chloride 125 ml @ 5 mls/hr TITRATE PRN IV 06/11/17 07:00 06/12/17 10:16 (Duoneb Neb) 1 ampule Q6HR NEB NEB 06/11/17 10:00 06/12/17 16:17 (Lanoxin Inj) 0.125 mg DAILY IV PUSH 06/11/17 12:30 06/12/17 07:37 (Tylenol 650 Mg/ 20 ml Liq) 650 mg Q6H PRN PO 06/11/17 14:15 06/11/17 14:45 Potassium Chloride 100 ml @ 50 mls/hr Q2H PRN IV 06/12/17 08:30 Potassium Chloride 100 ml @ 50 mls/hr Q2H PRN IV 06/12/17 08:30 (K-Lyte Cl Eff) 50 meq UNSCH PRN PO 06/12/17 08:30 Potassium Chloride 100 ml @ 25 mls/hr UNSCH PRN IV 06/12/17 08:30 Potassium Chloride 100 ml @ 50 mls/hr Q2H PRN IV 06/12/17 08:30 Magnesium Sulfate 4 gm/Sodium Chloride 100 ml @ 50 mls/hr UNSCH PRN IV 06/12/17 08:30 (Mag-Ox) 800 mg UNSCH PRN PO 06/12/17 08:30 Magnesium Sulfate 2 gm/Sodium Chloride 100 ml @ 50 mls/hr UNSCH PRN IV 06/12/17 08:30 (K-Phos) 2,000 mg Q4H PRN PO 06/12/17 08:30 Sodium Phosphate 30 mmol/Sodium Chloride 250 ml @ 42 mls/hr UNSCH PRN IV 06/12/17 08:30 (K-Phos) 2,000 mg UNSCH PRN PO/TUBE 06/12/17 08:30 Potassium Phosphate 30 mmol/ Sodium Chloride 260 ml @ 42 mls/hr UNSCH PRN IV 06/12/17 08:30 06/12/17 12:28 (Lasix Inj) 20 mg BID@09,18 IV PUSH 06/12/17 18:00 (Geodon Inj) 20 mg Q6H PRN IM 06/12/17 11:15 06/12/17 11:14 Allergies Allergies Coded Allergies codeine (Verified Allergy, Severe, NAUSEA, 05/29/17) piperacillin (Verified Allergy, Intermediate, Rash, 05/29/17) tazobactam (Verified Allergy, Intermediate, Rash, 05/29/17) Exam I&O / VS 06/12/17 06/12/17 06/13/17 15:00 23:00 07:00 Intake Total 1821 ml Balance 1821 ml IV Total 1821 ml Vital Signs Date Time Temp Pulse Resp B/P (MAP) Pulse Ox O2 Delivery O2 Flow Rate FiO2 06/12/17 12:00 134 06/12/17 12:00 101.5 134 24 146/72 (96) 97 06/12/17 11:00 94 Simple Mask 10.00 06/12/17 10:16 147 122/69 06/12/17 10:00 130 06/12/17 09:45 97 Simple Mask 10.00 06/12/17 08:00 133 06/12/17 08:00 101.8 134 23 118/57 (77) 100 06/12/17 07:15 98 Partial Rebreather 15.00 06/12/17 07:00 100 Partial Non-Rebreather 15.00 06/12/17 04:07 96 Non-Rebreather 06/12/17 04:00 98.1 124 20 87/53 (64) 35 06/12/17 00:00 98.1 100 20 133/58 (83) 96 06/11/17 20:00 94 Nasal Cannula 5.00 Humidified 06/11/17 20:00 98.0 96 20 118/58 (78) 96 06/11/17 18:00 90 06/11/17 17:18 95 99/64 Respiratory: Lungs CTA, Non-labored respirations, Symmetrical expansion, Other Cardiology: Normal rate, Intact pulses, Irregular Rhythm Musculoskeletal: ROM, Tenderness, Swelling, Other Objective Radiology Results Last [address] 06/11/17 0000 Signed Impressions: Service Date/Time: May 07:51 - CONCLUSION: Resolving right parietal and right tentorial subdural hematomas with no evidence of new acute hemorrhage, acute infarct, midline shift or extra-axial bleed. Dez Slaughter MD Chest X-Ray 06/11/17 0000 Signed Impressions: Service Date/Time: May 07:27 - CONCLUSION: 1. Bibasilar patchiness consistent with atelectasis and/or infiltrates. 2. Small left pleural effusion is stable. 3. Degenerative changes and scoliosis of the thoracic spine. Dez Slaughter MD Vital Signs Date Time Temp Pulse Resp B/P (MAP) Pulse Ox O2 Delivery O2 Flow Rate FiO2 06/12/17 12:00 134 06/12/17 12:00 101.5 134 24 146/72 (96) 97 06/12/17 11:00 94 Simple Mask 10.00 06/12/17 10:16 147 122/69 06/12/17 10:00 130 06/12/17 09:45 97 Simple Mask 10.00 06/12/17 08:00 133 06/12/17 08:00 101.8 134 23 118/57 (77) 100 06/12/17 07:15 98 Partial Rebreather 15.00 06/12/17 07:00 100 Partial Non-Rebreather 15.00 06/12/17 04:07 96 Non-Rebreather 06/12/17 04:00 98.1 124 20 87/53 (64) 35 06/12/17 00:00 98.1 100 20 133/58 (83) 96 06/11/17 20:00 94 Nasal Cannula 5.00 Humidified 06/11/17 20:00 98.0 96 20 118/58 (78) 96 06/11/17 18:00 90 06/11/17 17:18 95 99/64 Micro and Labs Laboratory Tests Test 06/11/17 18:25 06/12/17 06:10 Total Bilirubin 1.1 Direct Bilirubin 0.5 Indirect Bilirubin 0.6 Aspartate Amino Transf (AST/SGOT) 42 Alanine Aminotransferase (ALT/SGPT) 19 Alkaline Phosphatase 157 Total Creatine Kinase 134 Troponin I 5.83 Total Protein 6.3 Albumin 2.5 White Blood Count 14.2 Red Blood Count 3.58 Hemoglobin 11.2 Hematocrit 34.8 Mean Corpuscular Volume 97.1 Mean Corpuscular Hemoglobin 31.2 Mean Corpuscular Hemoglobin Concent 32.2 Red Cell Distribution Width 16.8 Platelet Count 266 Mean Platelet Volume 8.0 Neutrophils (%) (Auto) 86.2 Lymphocytes (%) (Auto) 7.6 Monocytes (%) (Auto) 5.7 Eosinophils (%) (Auto) 0.1 Basophils (%) (Auto) 0.4 Neutrophils # (Auto) 12.3 Lymphocytes # (Auto) 1.1 Monocytes # (Auto) 0.8 Eosinophils # (Auto) 0.0 Basophils # (Auto) 0.1 CBC Comment DIFF FINAL Differential Comment Prothrombin Time 12.0 Prothromb Time International Ratio 1.1 Activated Partial Thromboplast Time 23.8 Lactic Acid Level 1.7 Phosphorus Level 2.4 Magnesium Level 1.8 Date/Time Source Procedure Growth Status 06/11/17 12:08 Blood Peripheral Aerobic Blood Culture - Preliminary NO GROWTH IN 1 DAY Resulted 06/11/17 12:08 Blood Peripheral Anaerobic Blood Culture - Preliminary NO GROWTH IN 1 DAY Resulted 06/11/17 06:58 Urine Catheterized Urine Urine Culture - Preliminary IMMATURE GROWTH - REINCUBATE Resulted Kraig Paris MD Jun 12, 2017 17:13
[2017-06-12] MEDS: FUROSEMIDE 20 MG/2 ML VIAL IV PUSH SCH (17:57)
[2017-06-12] MEDS ORDERED: ACETAMINOPHEN 1000 MG/100 ML 100 ML IV PRN (21:30)
[2017-06-13] VITALS (16 sets, daily range): BP systolic 92–123; BP diastolic 52–63; PULSE 92–118; RESP 13–34; TEMP 99.1–100.9; O2SAT 87–100
[2017-06-13] MEDS: NOREPINEPHRINE-DEXTROSE DRIP 250 ML IV ONE ×2 (02:48→12:59)
[2017-06-13] MEDS: RESP: ALBUTEROL 2.5 MG/IPRATROPIUM 0.5 MG NEB (SCH) NEB ×4 (03:25→20:12)
[2017-06-13] MEDS: DILTIAZEM 125 MG/NS 100 ML IV PRN ×4 (03:51→20:21)
[2017-06-13] MEDS: CHLORHEXIDINE GLUCONATE 2 % 1 PACK (2 CLOTHS) TOP SCH (03:52)
[2017-06-13 06:38] LABS: BLOOD GAS BASE EXCESS 2.2 mmol/L (-2-2); BLOOD GAS HCO3 25 mmol/L (22-26); BLOOD GAS METHEMOGLOBIN 0.7 % (0-2); BLOOD GAS O2 HGB SATURATION 83 % (90-100); BLOOD GAS OXYGEN CONTENT 12.3 Vol % (12.0-20.0); BLOOD GAS PCO2 32 mmHg (38-42); BLOOD GAS PO2 49 mmHg (61-120); BLOOD GAS TOTAL HGB 10.5 G/DL (12.0-16.0); TEMP CORR TO 98.6
[2017-06-13 06:39] LABS: OXYGEN DEVICE VENTILATOR; VENT SETTINGS NONE REBREATHER
[2017-06-13 06:40] LABS: DRAW SITE LT RADIAL; NUMBER OF ARTERIAL PUNCTURES 2; STAT YES; ULNAR PULSE PRESENT
[2017-06-13] MEDS: DOCUSATE SODIUM 50 MG/SENNA 8.6 MG TAB PO SCH ×2 (08:32→20:20)
[2017-06-13] MEDS: SODIUM CHLORIDE 0.9% FLUSH 10 ML FLUSH IV FLUSH SCH ×2 (09:00→20:20)
[2017-06-13] MEDS: DIGOXIN 0.5 MG/2 ML VIAL IV PUSH SCH (09:06)
[2017-06-13] MEDS: FUROSEMIDE 20 MG/2 ML VIAL IV PUSH SCH (09:07)
[2017-06-13] MEDS: PANTOPRAZOLE SODIUM 40 MG VIAL IV PUSH SCH (09:07)
[2017-06-13] MEDS: levETIRAcetam INJ 500 MG in SODIUM CHLORIDE 0.9% INJ 100 ML IV SCH ×2 (09:08→20:20)
--- NOTE | 2017-06-13 11:29 | HHI.CCPN ---
Subjective Remarks/Hospital Course Seizure in a patient with history of increased density at the right tentorium and posterior right interhemispheric fissure consistent with an evolving subdural hemorrhage. 06/12: More alert later in day yesterday. Protects airway well. Required sedation last noc for severe agitation. Family is adamant that we give her sedation. We have tried to explain the risks but they insist. Will avoid benzo - try atypical antipsychotic geodon. 06/13: Still requiring increased O2. Major obstacles are to diurese off effusions and extra water in face of biventricular heart failure, and heart rate control. Update 1230 hours: Patient more SOB. Can't maintain sats on NRBM, struggling. Requires intubation, cultures, abx. Discussed wit the family at the beside. Diagnosis: (1) Seizure Diagnosis: Principal (2) Atrial fibrillation with RVR Diagnosis: Principal (3) Morbid obesity with BMI of 40.0-44.9, adult Diagnosis: Principal (4) Hematoma of iliopsoas muscle Diagnosis: Principal (5) Closed traumatic brain injury Diagnosis: Principal (6) HTN (hypertension) Diagnosis: Principal (7) Hyperlipidemia Diagnosis: Principal (8) Depression Diagnosis: Principal (9) Subdural hematoma Diagnosis: Principal Objective Vital Signs Date Time Temp Pulse Resp B/P (MAP) Pulse Ox O2 Delivery O2 Flow Rate FiO2 06/13/17 08:11 92 Non-Rebreather 15.00 06/13/17 06:00 114 06/13/17 04:00 99.1 27 109/55 (73) 06/11/17 05:10 100 Intake and Output 06/13/17 06/13/17 06/14/17 08:00 16:00 00:00 Intake Total 704 ml Output Total 550 ml Balance 154 ml Result Diagram: 06/12/17 0610 06/11/17 1200 Other Results Laboratory Tests Test 06/13/17 06:16 Blood Gas Puncture Site LT RADIAL Blood Gas Patient Temperature 98.6 Blood Gas HCO3 25 mmol/L (22-26) Blood Gas Base Excess 2.2 mmol/L (-2-2) Blood Gas Oxygen Saturation 83 % (90-100) Arterial Blood pH 7.51 (7.380-7.420) Arterial Blood Partial Pressure CO2 32 mmHg (38-42) Arterial Blood Partial Pressure O2 49 mmHg (61-120) Arterial Blood Oxygen Content 12.3 Vol % (12.0-20.0) Arterial Blood Carboxyhemoglobin 2.0 % (0-4) Arterial Blood Methemoglobin 0.7 % (0-2) Blood Gas Hemoglobin 10.5 G/DL (12.0-16.0) Oxygen Delivery Device VENTILATOR Blood Gas Ventilator Setting NONE REBREATHER Imaging CT brain/chest x-ray pending Objective Remarks GENERAL: This is a 76 year old female, critically ill currently resting on NRBM. SKIN: Warm and dry. Unstageable sacral decubitus ulcer HEAD: Atraumatic. Normocephalic. EYES: Right pupil around 2 mm and reactive. Left pupil around 3 mm and reactive. No scleral icterus.No injection or drainage. ENT: No nasal bleeding or discharge. Mucous membranes pink and moist. Oropharynx without erythema NECK: Trachea midline. + JVD. Airway widely patent. CARDIOVASCULAR: Tachycardia, Irreg irreg., episodic rate to 130s S1, S2, without murmur RESPIRATORY: Sparse crackles. No wheezes. Symmetrical excursion. GASTROINTESTINAL: Abdomen soft, non-tender, nondistended. Ostomy site in the right lower quadrant viable and pink MUSCULOSKELETAL: Extremities with obvious edema/evolving ecchymoses involving right knee. Multiple abrasions/old bilateral lower extremities status post fall 2 weeks ago NEUROLOGICAL: Opens eyes to voice. Moves 4 limbs. Conversant, confused. A/P Assessment and Plan Neuro/Psych: TBI 06/14 status post fall Right parafalcine subdural hematoma with a small cortical hemorrhage. Depression Cataracts/IOC Seizure currently postictal CT brain 05/29 revealed small parafalcine posterior subdural hematoma involving the right tentorium, with a small cortical hemorrhage involving the right parietal field. Repeat CT brain 06/08 revealed evolving subdural hematoma with no new acute bleeding Evaluated by Dr. Peterson. No intervention at that time. CT brain 06/11 pending EEG pending. Prolactin pending. Patient received 1 mg of lorazepam with minimal change in symptomatology Currently being loaded with levetiracetam 1 g followed by 500 mg IV twice a day Seizure precautions Currently holding duloxetine 30 mg by mouth daily for depression Keep head of bed at 30 CV: Atrial fibrillation with RVR Hypertension Dyslipidemia Chronic systolic heart failure Echocardiogram 06/14 revealed Normal left ventricular size. Wall thickness is normal. The left ventricular systolic function is moderately reduced with an estimated ejection fraction in the range of 40-45%. The right ventricular systoilc function is moderately decreased. A moderate left sided pleural effusion is noted. Initiated on diltiazem drip goal to keep heart rate less than 100. Recheck digoxin level today. Previously on 0.125 mg by mouth daily Home medications include Lopressor 50 mg twice a day, diltiazem 180 mg daily and digoxin 0.125 mg daily Evaluated by Dr. Matos last admission. Evaluation for possible ablation/ watchman program in near future per his notes TSH/CPK and troponin all pending. Electrolytes pending. Increase furosemide 40 mg IV twice a day Extra dose digoxin for rate control. Resp: Recent right lower lobe pneumonia History of JACOB? Left lower lobe effusion likely transudative Nasal cannula to maintain saturations greater than equal to 92%. Currently 5 L. Incentive spirometry while awake Placed on albuterol nebulizers every 2 hours. Dyspnea Chest x-ray pending ABG essentially normal on 5 L nasal cannula. 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 Wetzel Patient is currently nothing by mouth Pantoprazole for GI prophylaxis Docusate sodium/senna 1 tablet twice a day for bowel regimen Ostomy cares : Jenkins catheter if indicated for accurate I's and O's in a critically ill patient Endo: Sliding-scale insulin with Accu-Cheks to maintain euglycemia/low regimen with Novulog TSH pending Renal: BMP still pending. Monitor urine output Accurate I's and O's Heme: History of chronic warfarin use History of right femoral artery DVT -embolectomy Dr. Mo at [facility] CHADs VASc score 2. Will require anticoagulation at some point in the future CBC/coags all pending Warfarin reversed with prothrombin complex concentrate with 35 units per kilogram IV with 10 mg vitamin K ID: Monitor for infection Chest x-ray/UA PENDING. MSK: Sacral decubitus ulcer stage IV Wound care evaluate and treat PT/OT evaluate and treat FEN: Replace electrolytes as clinically indicated All laboratories pending Access - Utilize peripheral IV. Central line if indicated Prophylaxis - GI - pantoprazole - DVT - SCD/pharmacological prophylaxis contraindicated with subdural hematoma with current seizures with CT brain pending. Resume when okay with neurosurgery Overall impression: New seizure. Atrial fibrillation with RVR. Biventricular dysfunction. Cardiology following. Now hypoxemia, possible aspiration pneumonia. Will require intubation. Discusse in great detail with a family member at the bedside. Critical care 45 mins aside from procedures Jimbo Marina MD Jun 13, 2017 11:29
[2017-06-13] MEDS ORDERED: FUROSEMIDE 40 MG/4 ML VIAL IV PUSH SCH (12:00)
[2017-06-13] MEDS ORDERED: DIGOXIN 0.5 MG/2 ML VIAL IV PUSH SCH (12:15)
[2017-06-13] MEDS ORDERED: fentaNYL DRIP 250 ML IV PRN (12:45)
[2017-06-13] MEDS ORDERED: MIDAZOLAM HCL 5 MG/ML VIAL (1 ML) IM ONE (12:45)
[2017-06-13] MEDS ORDERED: ROCURONIUM INJ 50 MG/5 ML VIAL IV ONE (12:45)
[2017-06-13] MEDS ORDERED: Vancomycin Consult Pharmacy 1 EA OTHER SCH (12:45)
--- NOTE | 2017-06-13 13:43 | PD.PROCEDR ---
Procedure Note Procedure DX: Respiratory Failure (J96.01) OP: 1. Orotracheal Intubation (25002) 2. Insertion Right Subclavian Central Venous Line (17877) Procedure: Bag mask ventilation for urgent hypoxemia. Versed 5 mg and rocuronium 50 mg iv. Intubated orally with 8.0 tube. Position confirmed with CO2 detection, breath sounds, sats 100%. Right chest prepped and draped. Right subclavian vein cannulated and wire easily advanced. Catheter passed over wire to 18 cm. Lumens aspirated and flushed. Dressing applied. CXR ordered, will review. Jimbo Marina MD Jun 13, 2017 13:43
[2017-06-13] MEDS ORDERED: AZTREONAM INJ 1,000 MG in SODIUM CHLORIDE 0.9% INJ 100 ML IV SCH (14:00)
[2017-06-13] MEDS: PROPOFOL 1000 MG/100 ML INJ 100 ML IV PRN ×2 (14:51→20:19)
--- NOTE | 2017-06-13 15:05 | RADRPT ---
EXAM DATE/TIME: 06/13/2017 14:12 [place] COMPARISON: CHEST SINGLE AP, June 11, 2017, 7:27. INDICATIONS : Code MEDICAL HISTORY : Code SURGICAL HISTORY : Code ENCOUNTER: Code ACUITY: Code PAIN SCORE: Code LOCATION: Code FINDINGS: Patient has been intubated with ETT approximately 1.5 cm above the love. Right subclavian central l ine with tip in the proximal right atrium. NGT courses beyond the GE junction with tip limited from t he image. Cardiac lead is enlarged. Redemonstration of patchy bilateral lower lung zone airspace dise ase and small left pleural effusion. Remainder of exam is unchanged. CONCLUSION: 1. ETT 1.5 cm above the love. NGT beyond the GE junction. Right subclavian central line in good pos ition. 2. Redemonstration of patchy bibasilar lower lung zone airspace disease and small left pleural effusi on. 3. Cardiomegaly with mild positive fluid balance. James Doty MD on June 13, 2017 at 15:01 Board Certified Radiologist. This report was verified electronically.
--- NOTE | 2017-06-13 15:38 | MB ---
cc: DEDE BECERRIL M.D., ALAN S. M.D. HARMAN, P.KENT MD DATE OF CONSULTATION: 06/13/2017 HISTORY OF PRESENT ILLNESS: The patient is intubated and I have gotten the history from the chart and from Dr. Marina, whom I have spoken with. The patient is a 76-year-old woman who was admitted to [facility] earlier this month with a subdural hematoma occurring after a fall. She was evaluated by Dr. Peterson who recommended conservative treatment. She has seen by Dr. Becerril for atrial fibrillation with rapid response and treated conservatively with plans possible for a Watchman down the road. The patient apparently had a seizure in [facility]. She was initially intubated. She was subsequently extubated but reintubated today because of agitation and respiratory failure. I spoke to Dr. Marina who felt that this most likely represented problems with clearing secretions and aspiration and not cardiac. She is in chronic atrial fibrillation and her rate was increased during agitation but it is now controlled in the 90-100 range on intravenous Cardizem. PAST MEDICAL HISTORY: 1. Hypertension. 2. Dyslipidemic. 3. Chronic atrial fibrillation. 4. Obesity. 5. Sleep apnea. 6. Gastroesophageal reflux disease (GERD). 7. Hiatal hernia. 8. Splenic infarct. 9. Prior DVT. 10. Depression. 11. Colostomy. 12. Cholecystectomy. 13. Bilateral total knee replacement. 14. Cataracts. SOCIAL HISTORY: Apparently she does not smoke or drink and there is no definite history of coronary disease. REVIEW OF SYSTEMS: I cannot get a review of systems. CARDIAC STUDIES: Telemetry reveals controlled atrial fibrillation. LAB WORK: Her white count done on 06/12 is elevated with hematocrit of 34.8. PT and PTT are normal. Lab work done 06/11 showed normal renal function and electrolytes. Her troponins have been elevated at a maximum of 5.83 with normal CPK. TSH level was normal. IMAGING STUDIES: Head CT showed resolving right parietal and right tentorial subdural hematoma. Chest x-ray with bilateral patchiness and a stable small left pleural effusion. PHYSICAL EXAMINATION: GENERAL: On exam, she is on controlled atrial fibrillation. She has been intermittently febrile. VITAL SIGNS: Stable. She was put on low-dose pressors after intubation. CHEST: Decreased breath sounds and occasional rhonchi. CARDIOVASCULAR: JVD normal. There is an irregular rhythm. S1, S2 with a short 1/6 systolic ejection murmur at the base. ABDOMEN: Obese but benign. EXTREMITIES: No cyanosis, clubbing or edema. PULSES: Carotids without bruits. Radials trace to 1+. Pedals trace. Echocardiogram done 06/14 showed an ejection fraction of 40% to 45% with right ventricular dysfunction. ASSESSMENT AND PLAN: Ms. Padilla has chronic atrial fibrillation and has had a subdural hematoma. Her present respiratory situation appears related to trouble clearing secretions and aspiration, possibly with pneumonia as she has been febrile. Her atrial fibrillation was not well controlled when agitated, but it is controlled now on intravenous Diltiazem. I have reviewed her medication list. At this point, I have discussed the situation with Dr. Marina and have recommended the followin. Continue intravenous Cardizem. 2. I would continue also Digoxin. 3. Beta blockers can be added for further rate control. 4. DVT prophylaxis. 5. Follow up of routine lab work through the primary service along with antibiotic treatment. 6. She is certainly not a candidate for anticoagulation and certainly not a candidate for any electrophysiologic procedures at this point. Will not follow but will be available if needed. MD GIL Hodgson/ABRIL /2:06 PM /3:24 PM DOUGLAS
[2017-06-13] MEDS: METOCLOPRAMIDE HCL 10 MG/2 ML VIAL IV PUSH SCH ×2 (17:32→21:14)
[2017-06-13] MEDS: VANCOMYCIN INJ 1,250 MG in SODIUM CHLOR 0.9% 250 ML INJ 250 ML IV SCH (17:34)
[2017-06-13] MEDS: CEFEPIME INJ 2,000 MG in SODIUM CHLORIDE 0.9% INJ 100 ML IV SCH (18:00)
[2017-06-13] MEDS: BENEPROTEIN POWDER 1 PACK G-TUBE SCH (18:00)
[2017-06-13] MEDS: SODIUM CHLOR 0.9% 1000 ML INJ 1,000 ML IV SCH (18:56)
[2017-06-13 19:03] LABS: BLOOD GAS BASE EXCESS 4.2 mmol/L (-2-2); BLOOD GAS CARBOXYHEMOGLOBIN 1.7 % (0-4); BLOOD GAS HCO3 28 mmol/L (22-26); BLOOD GAS METHEMOGLOBIN 0.9 % (0-2); BLOOD GAS O2 HGB SATURATION 96 % (90-100); BLOOD GAS OXYGEN CONTENT 15.1 Vol % (12.0-20.0); BLOOD GAS PCO2 39 mmHg (38-42); BLOOD GAS PO2 122 mmHg (61-120); CRITICAL VALUE NO; OXYGEN DEVICE VENTILATOR; TEMP CORR TO 98.6
[2017-06-13 19:04] LABS: DRAW SITE LT BRACHIAL; FIO2 75 %; NUMBER OF ARTERIAL PUNCTURES 2
[2017-06-13] MEDS: CHLORHEXIDINE 0.12% (ORAL KIT) 15 ML CUP MT SCH (19:57)
[2017-06-13] MEDS: ACETAMINOPHEN 650 MG/20.3 ML UDC PO PRN (23:01)
[2017-06-14] VITALS (18 sets, daily range): BP systolic 83–176; BP diastolic 51–90; PULSE 75–112; RESP 19–28; TEMP 97.5–101.1; O2SAT 92–100
[2017-06-14 02:50] LABS: AUTOMATED NEUTROPHIL # 9.2 TH/MM3 (1.8-7.7); BASOPHIL # 0.1 TH/MM3 (0-0.2); BASOPHIL % 0.5 % (0.0-2.0); EOSINOPHIL % 0.3 % (0.0-4.0); HEMATOCRIT 30.4 % (35.0-46.0); HEMO FLAGS DIFF FINAL; LYMPH % 10.1 % (9.0-44.0); LYMPHOCYTE # 1.2 TH/MM3 (1.0-4.8); MEAN CELL VOLUME 98.2 FL (80.0-100.0); MEAN CORPUSCULAR HEMOGLOBIN 30.2 PG (27.0-34.0); MEAN CORPUSCULAR HGB CONC 30.7 % (32.0-36.0); MONO % 9.1 % (0.0-8.0); PLATELET COUNT 206 TH/MM3 (150-450); WHITE BLOOD COUNT 11.4 TH/MM3 (4.0-11.0)
[2017-06-14 03:19] LABS: BICARBONATE 28.2 MEQ/L (21.0-32.0); DIGOXIN 1.4 NG/ML (0.8-2.0); POTASSIUM 3.2 MEQ/L (3.5-5.1)
[2017-06-14] MEDS: SODIUM CHLOR 0.9% 1000 ML INJ 1,000 ML IV SCH (03:33)
[2017-06-14] MEDS: CHLORHEXIDINE GLUCONATE 2 % 1 PACK (2 CLOTHS) TOP SCH (03:34)
[2017-06-14] MEDS: RESP: ALBUTEROL 2.5 MG/IPRATROPIUM 0.5 MG NEB (SCH) NEB ×4 (03:42→20:46)
[2017-06-14] MEDS: POTASSIUM CHLOR 40 MEQ PREMIX 100 ML IV PRN ×2 (03:53→05:54)
[2017-06-14 04:11] LABS: MAGNESIUM 1.7 MG/DL (1.5-2.5)
[2017-06-14] MEDS: METOCLOPRAMIDE HCL 10 MG/2 ML VIAL IV PUSH SCH ×3 (05:09→21:16)
[2017-06-14] MEDS: CEFEPIME INJ 2,000 MG in SODIUM CHLORIDE 0.9% INJ 100 ML IV SCH ×2 (05:10→17:34)
[2017-06-14] MEDS: POTASSIUM PHOSPHATE INJ 30 MMOL in SODIUM CHLOR 0.9% 250 ML INJ 250 ML IV PRN (05:49)
[2017-06-14] MEDS: PROPOFOL 1000 MG/100 ML INJ 100 ML IV PRN ×2 (06:42→22:21)
[2017-06-14] MEDS: SODIUM CHLORIDE 0.9% FLUSH 10 ML FLUSH IV FLUSH SCH ×2 (09:00→21:16)
--- NOTE | 2017-06-14 09:22 | HHI.CCPN ---
Subjective Remarks/Hospital Course Seizure in a patient with history of increased density at the right tentorium and posterior right interhemispheric fissure consistent with an evolving subdural hemorrhage. 06/12: More alert later in day yesterday. Protects airway well. Required sedation last noc for severe agitation. Family is adamant that we give her sedation. We have tried to explain the risks but they insist. Will avoid benzo - try atypical antipsychotic geodon. 06/13: Still requiring increased O2. Major obstacles are to diurese off effusions and extra water in face of biventricular heart failure, and heart rate control. Update 1230 hours: Patient more SOB. Can't maintain sats on NRBM, struggling. Requires intubation, cultures, abx. Discussed wit the family at the beside. 06/14: Required intubation 06/13. Early culture sputum is benign. CXR still look like heart failure but RML appears to have pneumonitis, probably aspiration during seizure two days ago. BNP > 800. EF 45% Diagnosis: (1) Seizure Diagnosis: Principal (2) Atrial fibrillation with RVR Diagnosis: Principal (3) Morbid obesity with BMI of 40.0-44.9, adult Diagnosis: Principal (4) Hematoma of iliopsoas muscle Diagnosis: Principal (5) Closed traumatic brain injury Diagnosis: Principal (6) HTN (hypertension) Diagnosis: Principal (7) Hyperlipidemia Diagnosis: Principal (8) Depression Diagnosis: Principal (9) Subdural hematoma Diagnosis: Principal Objective Vital Signs Date Time Temp Pulse Resp B/P (MAP) Pulse Ox O2 Delivery O2 Flow Rate FiO2 06/14/17 07:50 97 40 06/14/17 06:00 95 06/14/17 04:15 119/58 06/14/17 04:00 99.5 25 06/13/17 19:00 Mechanical Ventilator 06/13/17 08:11 15.00 Intake and Output 06/14/17 06/14/17 06/15/17 08:00 16:00 00:00 Intake Total 1000 ml Output Total 295 ml Balance 705 ml Result Diagram: 06/14/17 0230 06/14/17 0230 Other Results Laboratory Tests Test 06/13/17 18:40 Blood Gas Puncture Site LT BRACHIAL Blood Gas Patient Temperature 98.6 Blood Gas HCO3 28 mmol/L (22-26) Blood Gas Base Excess 4.2 mmol/L (-2-2) Blood Gas Oxygen Saturation 96 % (90-100) Arterial Blood pH 7.47 (7.380-7.420) Arterial Blood Partial Pressure CO2 39 mmHg (38-42) Arterial Blood Partial Pressure O2 122 mmHg (61-120) Arterial Blood Oxygen Content 15.1 Vol % (12.0-20.0) Arterial Blood Carboxyhemoglobin 1.7 % (0-4) Arterial Blood Methemoglobin 0.9 % (0-2) Blood Gas Hemoglobin 11.0 G/DL (12.0-16.0) Oxygen Delivery Device VENTILATOR Blood Gas Ventilator Setting Blood Gas Inspired Oxygen 75 % Imaging CT brain/chest x-ray pending Objective Remarks GENERAL: This is a 76 year old female, critically ill. SKIN: Warm and dry. Unstageable sacral decubitus ulcer HEAD: Atraumatic. Normocephalic. EYES: Right pupil around 2 mm and reactive. Left pupil around 3 mm and reactive. No scleral icterus.No injection or drainage. ENT: No nasal bleeding or discharge. Mucous membranes pink and moist. Oropharynx without erythema NECK: Trachea midline. + JVD. Airway widely patent. CARDIOVASCULAR: Tachycardia, Irreg irreg., episodic rate to 130s S1, S2, without murmur RESPIRATORY: Sparse crackles. No wheezes. Symmetrical excursion. Minimal secretions. GASTROINTESTINAL: Abdomen soft, non-tender, nondistended. Ostomy site in the right lower quadrant viable and pink MUSCULOSKELETAL: Extremities with obvious edema/evolving ecchymoses involving right knee. Multiple abrasions/old bilateral lower extremities status post fall 2 weeks ago NEUROLOGICAL: Opens eyes to voice. Moves 4 limbs. Was oriented yesterday before intubation, agitation had resolved. A/P Assessment and Plan Neuro/Psych: TBI 06/14 status post fall Right parafalcine subdural hematoma with a small cortical hemorrhage. Depression Cataracts/IOC Seizure currently postictal CT brain 05/29 revealed small parafalcine posterior subdural hematoma involving the right tentorium, with a small cortical hemorrhage involving the right parietal field. Repeat CT brain 06/08 revealed evolving subdural hematoma with no new acute bleeding Evaluated by Dr. Peterson. No intervention at that time. CT brain 06/11 pending EEG pending. Prolactin pending. Patient received 1 mg of lorazepam with minimal change in symptomatology Currently being loaded with levetiracetam 1 g followed by 500 mg IV twice a day Seizure precautions Currently holding duloxetine 30 mg by mouth daily for depression Keep head of bed at 30 CV: Atrial fibrillation with RVR Hypertension Dyslipidemia Chronic systolic heart failure Echocardiogram 06/14 revealed Normal left ventricular size. Wall thickness is normal. The left ventricular systolic function is moderately reduced with an estimated ejection fraction in the range of 40-45%. The right ventricular systoilc function is moderately decreased. A moderate left sided pleural effusion is noted. Initiated on diltiazem drip goal to keep heart rate less than 100. Recheck digoxin level today. Previously on 0.125 mg by mouth daily Home medications include Lopressor 50 mg twice a day, diltiazem 180 mg daily and digoxin 0.125 mg daily Evaluated by Dr. Matos last admission. Evaluation for possible ablation/ watchman program in near future per his notes TSH/CPK and troponin all pending. Electrolytes pending. Increase furosemide 40 mg IV twice a day Extra dose digoxin for rate control. Start Cardizem 60 po q6h, try to wean off drip. Resp: Recent right lower lobe pneumonia History of JACOB? Left lower lobe effusion likely transudative Nasal cannula to maintain saturations greater than equal to 92%. Currently 5 L. Incentive spirometry while awake Placed on albuterol nebulizers every 2 hours. Dyspnea Chest x-ray pending PRVC mode. 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 Wetzel Patient is currently nothing by mouth Pantoprazole for GI prophylaxis Docusate sodium/senna 1 tablet twice a day for bowel regimen Ostomy care : Jenkins catheter if indicated for accurate I's and O's in a critically ill patient Endo: Sliding-scale insulin with Accu-Cheks to maintain euglycemia/low regimen with Novulog TSH pending Renal: Monitor urine output Accurate I's and O's Heme: History of chronic warfarin use History of right femoral artery DVT -embolectomy Dr. Mo at [facility] CHADs VASc score 2. Will require anticoagulation at some point in the future CBC/coags all pending Warfarin was reversed with prothrombin complex concentrate with 35 units per kilogram IV with 10 mg vitamin K ID: Monitor for infection Chest x-ray/UA PENDING. MSK: Sacral decubitus ulcer stage IV Wound care evaluate and treat PT/OT evaluate and treat FEN: Replace electrolytes as clinically indicated All laboratories pending Access - Utilize peripheral IV. - Right SCV CVL placed 06/13 Prophylaxis - GI - pantoprazole - DVT - SCD/pharmacological prophylaxis contraindicated with subdural hematoma with current seizures with CT brain pending. Resume when okay with neurosurgery Overall impression: New seizure. Atrial fibrillation with RVR. Biventricular dysfunction. Cardiology following (Siede). Now hypoxemia, possible aspiration pneumonia. Required intubation. Discussed in great detail with a family member at the bedside again today. This is most likely an aspiration pneumonitis made worse by CHF and boggy lungs. Critical care 43 mins Jimbo Marina MD Jun 14, 2017 09:22
[2017-06-14] MEDS: VANCOMYCIN INJ 1,250 MG in SODIUM CHLOR 0.9% 250 ML INJ 250 ML IV SCH (09:41)
[2017-06-14] MEDS: levETIRAcetam INJ 500 MG in SODIUM CHLORIDE 0.9% INJ 100 ML IV SCH ×2 (09:41→21:16)
[2017-06-14] MEDS: BENEPROTEIN POWDER 1 PACK G-TUBE SCH ×3 (09:52→17:34)
[2017-06-14] MEDS: DIGOXIN 0.5 MG/2 ML VIAL IV PUSH SCH (09:52)
[2017-06-14] MEDS: CHLORHEXIDINE 0.12% (ORAL KIT) 15 ML CUP MT SCH ×2 (09:52→20:56)
[2017-06-14] MEDS: PANTOPRAZOLE SODIUM 40 MG VIAL IV PUSH SCH (09:52)
[2017-06-14] MEDS: DOCUSATE SODIUM 50 MG/SENNA 8.6 MG TAB PO SCH ×2 (09:53→21:15)
[2017-06-14] MEDS: DILTIAZEM 125 MG/NS 100 ML IV PRN ×4 (10:01→22:22)
[2017-06-14] MEDS: FUROSEMIDE 40 MG/4 ML VIAL IV PUSH SCH (10:05)
[2017-06-14] MEDS: DILTIAZEM HCL 60 MG TAB PO SCH ×2 (11:52→17:34)
[2017-06-14 18:00] LABS: POTASSIUM 4.2 MEQ/L (3.5-5.1)
[2017-06-14] MEDS: ARTIFICIAL TEARS OPTH SOLN 15 ML BTL EACH EYE SCH (18:00)
[2017-06-14] MEDS: ACETAMINOPHEN 650 MG/20.3 ML UDC PO PRN (21:15)
[2017-06-15] VITALS (16 sets, daily range): BP systolic 98–123; BP diastolic 50–82; PULSE 77–108; RESP 24–32; TEMP 98.4–100.9; O2SAT 93–100
[2017-06-15] MEDS: DILTIAZEM HCL 60 MG TAB PO SCH ×4 (00:12→17:48)
[2017-06-15 01:50] LABS: AUTOMATED NEUTROPHIL # 10.4 TH/MM3 (1.8-7.7); BASOPHIL # 0.2 TH/MM3 (0-0.2); BASOPHIL % 1.4 % (0.0-2.0); EOSINOPHIL # 0.1 TH/MM3 (0-0.4); EOSINOPHIL % 0.5 % (0.0-4.0); HEMATOCRIT 34.8 % (35.0-46.0); LYMPH % 9.5 % (9.0-44.0); LYMPHOCYTE # 1.2 TH/MM3 (1.0-4.8); MEAN CELL VOLUME 98.4 FL (80.0-100.0); MEAN CORPUSCULAR HEMOGLOBIN 30.9 PG (27.0-34.0); MEAN CORPUSCULAR HGB CONC 31.4 % (32.0-36.0); MONO % 9.2 % (0.0-8.0); NEUT % 79.4 % (16.0-70.0); PLATELET COUNT 200 TH/MM3 (150-450); RED BLOOD COUNT 3.53 MIL/MM3 (4.00-5.30); RED CELL DISTRIBUTION WIDTH 18.3 % (11.6-17.2); WHITE BLOOD COUNT 13.1 TH/MM3 (4.0-11.0)
[2017-06-15 01:52] LABS: HEMO FLAGS AUTO DIFF
[2017-06-15 02:08] LABS: BICARBONATE 24.9 MEQ/L (21.0-32.0); POTASSIUM 4.3 MEQ/L (3.5-5.1)
[2017-06-15 02:11] LABS: VANCOMYCIN TROUGH 12.1 MCG/ML (5.0-10.0)
[2017-06-15 02:17] LABS: SCAN/DIFF AUTO DIFF CONFIRMED
[2017-06-15] MEDS: PROPOFOL 1000 MG/100 ML INJ 100 ML IV PRN ×3 (02:33→16:13)
[2017-06-15] MEDS: RESP: ALBUTEROL 2.5 MG/IPRATROPIUM 0.5 MG NEB (SCH) NEB ×2 (03:02→08:04)
[2017-06-15] MEDS: VANCOMYCIN INJ 1,250 MG in SODIUM CHLOR 0.9% 250 ML INJ 250 ML IV SCH ×2 (03:29→23:06)
[2017-06-15] MEDS: CHLORHEXIDINE GLUCONATE 2 % 1 PACK (2 CLOTHS) TOP SCH ×2 (03:29→21:23)
[2017-06-15] MEDS ORDERED: PHARMACY ORDERED LAB ONE ×2 (03:45→21:45)
--- NOTE | 2017-06-15 05:03 | RADRPT ---
EXAM DATE/TIME: 06/15/2017 04:19 [facility] COMPARISON: CHEST SINGLE AP, June 13, 2017, 14:12. INDICATIONS : Evaluate for pnuemonia MEDICAL HISTORY : Hypertension. Gastroesophageal reflux disease. SURGICAL HISTORY : Cholecystectomy. ENCOUNTER: Subsequent ACUITY: 1 week PAIN SCORE: Non-responsive. LOCATION: Bilateral chest FINDINGS: A single portable frontal view of the chest shows an endotracheal tube with the tip 2 cm proximal to love. Nasogastric tube tip courses off the inferior margin of the film. Right subclavian central ve nous line. Small pleural effusion. Bibasilar patchy pulmonary infiltrates. Heart is mildly enlarged. Appearance is unchanged. CONCLUSION: Unchanged left pleural effusion and bibasilar pulmonary infiltrates. Raad Meraz Jr., MD on June 15, 2017 at 5:00 Board Certified Radiologist. This report was verified electronically.
[2017-06-15] MEDS: METOCLOPRAMIDE HCL 10 MG/2 ML VIAL IV PUSH SCH ×3 (06:18→23:06)
[2017-06-15] MEDS: CEFEPIME INJ 2,000 MG in SODIUM CHLORIDE 0.9% INJ 100 ML IV SCH ×2 (06:18→17:48)
[2017-06-15] MEDS: CHLORHEXIDINE 0.12% (ORAL KIT) 15 ML CUP MT SCH ×2 (08:00→20:07)
[2017-06-15] MEDS: DILTIAZEM 125 MG/NS 100 ML IV PRN ×2 (08:03)
[2017-06-15] MEDS: PANTOPRAZOLE SODIUM 40 MG VIAL IV PUSH SCH (08:30)
[2017-06-15] MEDS: DOCUSATE SODIUM 50 MG/SENNA 8.6 MG TAB PO SCH ×2 (08:30→20:56)
[2017-06-15] MEDS: DIGOXIN 0.5 MG/2 ML VIAL IV PUSH SCH (08:30)
[2017-06-15] MEDS: FUROSEMIDE 40 MG/4 ML VIAL IV PUSH SCH (08:30)
[2017-06-15] MEDS: ARTIFICIAL TEARS OPTH SOLN 15 ML BTL EACH EYE SCH ×3 (08:31→18:20)
[2017-06-15] MEDS: BENEPROTEIN POWDER 1 PACK G-TUBE SCH ×3 (08:31→18:23)
[2017-06-15] MEDS: SODIUM CHLORIDE 0.9% FLUSH 10 ML FLUSH IV FLUSH SCH ×2 (08:32→20:56)
[2017-06-15] MEDS: levETIRAcetam INJ 500 MG in SODIUM CHLORIDE 0.9% INJ 100 ML IV SCH ×2 (08:33→20:56)
--- NOTE | 2017-06-15 13:02 | HHI.CCPN ---
Subjective Remarks/Hospital Course Seizure in a patient with history of increased density at the right tentorium and posterior right interhemispheric fissure consistent with an evolving subdural hemorrhage. 06/12: More alert later in day yesterday. Protects airway well. Required sedation last noc for severe agitation. Family is adamant that we give her sedation. We have tried to explain the risks but they insist. Will avoid benzo - try atypical antipsychotic geodon. 06/13: Still requiring increased O2. Major obstacles are to diurese off effusions and extra water in face of biventricular heart failure, and heart rate control. Update 1230 hours: Patient more SOB. Can't maintain sats on NRBM, struggling. Requires intubation, cultures, abx. Discussed wit the family at the beside. 06/14: Required intubation 06/13. Early culture sputum is benign. CXR still look like heart failure but RML appears to have pneumonitis, probably aspiration during seizure two days ago. BNP > 800. EF 45% 06/15: Tolerated CPAP >1 hour today then became tachypneic. CXR with small to moderate pleural effusion. UO 1.35 L in 24 hours. Approximately 5Kg wt gain since admission. BNP 1042. Diagnosis: (1) Seizure Diagnosis: Principal (2) Atrial fibrillation with RVR Diagnosis: Principal (3) Morbid obesity with BMI of 40.0-44.9, adult Diagnosis: Principal (4) Hematoma of iliopsoas muscle Diagnosis: Principal (5) Closed traumatic brain injury Diagnosis: Principal (6) HTN (hypertension) Diagnosis: Principal (7) Hyperlipidemia Diagnosis: Principal (8) Depression Diagnosis: Principal (9) Subdural hematoma Diagnosis: Principal Objective Vital Signs Date Time Temp Pulse Resp B/P (MAP) Pulse Ox O2 Delivery O2 Flow Rate FiO2 06/15/17 12:00 35 06/15/17 12:00 88 06/15/17 12:00 99.1 26 114/56 (75) 100 06/15/17 07:00 Mechanical Ventilator 06/13/17 08:11 15.00 Intake and Output 06/15/17 06/15/17 06/16/17 08:00 16:00 00:00 Intake Total 900 ml 105 ml Output Total 775.0 ml Balance 125.0 ml 105 ml Result Diagram: 06/15/17 01306/15/17 013 Other Results Microbiology Date/Time Source Procedure Growth Status 06/13/17 13:50 Sputum Endotracheal Gram Stain - Final Complete 06/13/17 13:50 Sputum Endotracheal Sputum Culture - Final RARE GROWTH NORMAL RESPIRATORY SAM Complete Imaging CT brain/chest x-ray pending Objective Remarks GENERAL: This is a 76 year old female, critically ill. SKIN: Warm and dry. Unstageable sacral decubitus ulcer HEAD: Atraumatic. Normocephalic. EYES: Right pupil around 2 mm and reactive. Left pupil around 3 mm and reactive. No scleral icterus.No injection or drainage. ENT: No nasal bleeding or discharge. Orotracheally intubated NECK: Trachea midline. + JVD. CARDIOVASCULAR: Tachycardia intermittently, Irreg irreg. S1, S2, without murmur RESPIRATORY: Sparse crackles. No wheezes. Symmetrical excursion. Minimal secretions from ETT. tachypneic on CPAP GASTROINTESTINAL: Abdomen soft, non-tender, nondistended. Ostomy site in the right lower quadrant viable and pink MUSCULOSKELETAL: Extremities with resolving ecchymoses involving right knee. Multiple abrasions/old bilateral lower extremities status post fall 2 weeks ago NEUROLOGICAL: Opens eyes to voice. Moves 4 limbs. Follows commands x4 on sedation hold A/P Assessment and Plan Neuro/Psych: TBI 06/14 status post fall Right parafalcine subdural hematoma with a small cortical hemorrhage. Seizure Depression Cataracts/IOC CT brain 05/29 revealed small parafalcine posterior subdural hematoma involving the right tentorium, with a small cortical hemorrhage involving the right parietal field. Repeat CT brain 06/08 revealed evolving subdural hematoma with no new acute bleeding Evaluated by Dr. Peterson. No intervention at that time. CT brain 06/11 R sided subdural hemorrhage resolving EEG 06/11 severe encephalopathy. Prolactin 7.1 Normal. Patient received 1 mg of lorazepam with minimal change in symptomatology Loaded with levetiracetam 1 g followed by 500 mg IV twice a day Seizure precautions. Currently holding duloxetine 30 mg by mouth daily for depression Keep head of bed at 30 CV: Atrial fibrillation with RVR, now rate controlled Hypertension Dyslipidemia Chronic systolic heart failure Echocardiogram 06/14 revealed Normal left ventricular size, wall thickness. LV systolic function is moderately reduced with an estimated EF 40-45%. The right ventricular systoilc function is moderately decreased. A moderate left sided pleural effusion is noted. Initiated on diltiazem drip goal to keep heart rate less than 100. Digoxin level 1.4 on 06/14 Home medications include Lopressor 50 mg twice a day, diltiazem 180 mg daily and digoxin 0.125 mg daily Evaluated by Dr. Matos last admission. Evaluation for possible ablation/ watchman program in near future per his notes Furosemide 40 mg IV twice a day Extra dose digoxin for rate control. Start Cardizem 60 po q6h, try to wean off drip. Resp: Acute respiratory failure Recent right lower lobe pneumonia Left lower lobe effusion likely transudative History of JACOB? PRVC Maintain saturations greater than equal to 92%. 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 Wetzel Patient is tolerating tube feeds, having ostomy output Pantoprazole for GI prophylaxis Docusate sodium/senna 1 tablet twice a day for bowel regimen Ostomy care : Jenkins catheter if indicated for accurate I's and O's in a critically ill patient Endo: Sliding-scale insulin with Accu-Cheks to maintain euglycemia/low regimen with Novulog Renal: Monitor urine output Accurate I's and O's Heme: History of chronic warfarin use History of right femoral artery DVT -embolectomy Dr. Mo at [facility] CHADs VASc score 2. Will require anticoagulation at some point in the future CBC/coags all pending Warfarin was reversed with prothrombin complex concentrate with 35 units per kilogram IV with 10 mg vitamin K ID: Monitor for infection Urine culture elaine +. change Jenkins catheter MSK: Sacral decubitus ulcer stage IV Wound care evaluate and treat PT/OT evaluate and treat FEN: Replace electrolytes as clinically indicated Access - Utilize peripheral IV. - Right SCV CVL placed 06/13 Prophylaxis - GI - pantoprazole - DVT - SCD/pharmacological prophylaxis contraindicated with subdural hematoma with current seizures. Resume when okay with neurosurgery Overall impression: New seizure. Atrial fibrillation with RVR. Biventricular dysfunction. Cardiology following ([facility]). Now hypoxemia, possible aspiration pneumonia. Required intubation. Discussed in great detail with a family member at the bedside again today. This is most likely an aspiration pneumonitis made worse by CHF and boggy lungs. Failing CPAP trials Critical care 35 mins Carolina Pina MD Jun 15, 2017 13:02
[2017-06-15] MEDS ORDERED: ALBUMIN HUMAN 25% 25 GM/100 ML BAGP IV ONE (16:45)
[2017-06-15] MEDS ORDERED: NOREPINEPHRINE-DEXTROSE DRIP 250 ML IV ONE (17:06)
--- NOTE | 2017-06-15 17:28 | PD.PROCEDR ---
Procedure Note Procedure US GUIDED LEFT PIG TAIL CHEST TUBE PLACEMENT Indication: Large left sided effusion with failure to wean, respiratory failure Informed consent was obtained from the family. A time-out was completed verifying correct patient, procedure, site, positioning, and special equipment if applicable. The patient was positioned appropriately for chest tube placement. The patients left lateral chest insertion site was marked with US and was prepped and draped in sterile fashion. 1% Lidocaine was used to anesthetize the surrounding skin area. A skin noemi was made with scalpel. Introducer needle placed in the pleural space and blood-tinged pleural fluid was obtained. A guidewire was placed and the track was dilated. Using Seldinger technique, 8 F pigtail chest tube was placed. The chest tube was sutured securely to the skin and a sterile dressing applied. A pleurevac was attached to the chest tube and initial output 650 ml blood tinged pleural fluid. CXR ordered, pending Estimated Blood Loss: 1 ml The patient tolerated the procedure well and there were no complications. Carolina Pina MD Jun 15, 2017 17:28
--- NOTE | 2017-06-15 18:25 | RADRPT ---
EXAM DATE/TIME: 06/15/2017 17:24 [facility] COMPARISON: CHEST SINGLE AP, June 15, 2017, 4:19. INDICATIONS : Evaluate chest tube placement MEDICAL HISTORY : Hypertension. Gastroesophageal reflux disease. SURGICAL HISTORY : Cholecystectomy. ENCOUNTER: Subsequent ACUITY: 1 week PAIN SCORE: Non-responsive. LOCATION: Left chest FINDINGS: An endotracheal tube has its tip 1 cm above the love. A nasogastric tube has its tip below the sachin phragm. A right subclavian central line has its tip in the superior vena cava. A small left chest t ube is noted at the left lung base. No pneumothorax is noted. Scattered infiltrates are noted bilat erally and are stable. CONCLUSION: 1. Small chest tube is noted at the left lung base in good position. No pneumothorax is noted. 2. Scattered infiltrates are noted bilaterally and are stable. 3. Multiple tubes and lines are stable. Dez Slaughter MD on June 15, 2017 at 18:14 Board Certified Radiologist. This report was verified electronically.
[2017-06-15 18:53] LABS: PLEURAL FLUID LYMPHS 77 %
[2017-06-15 19:40] LABS: TOTAL PROTEIN,PLEURAL FLUID 2.1 GM/DL
[2017-06-16] VITALS (18 sets, daily range): BP systolic 105–112; BP diastolic 58–75; PULSE 64–99; RESP 22–35; TEMP 97.1–100; O2SAT 97–100
[2017-06-16] MEDS: DILTIAZEM HCL 60 MG TAB PO SCH ×4 (00:07→17:03)
[2017-06-16] MEDS: PROPOFOL 1000 MG/100 ML INJ 100 ML IV PRN ×4 (00:08→17:03)
[2017-06-16 04:10] LABS: AUTOMATED NEUTROPHIL # 8.9 TH/MM3 (1.8-7.7); BASOPHIL % 0.2 % (0.0-2.0); EOSINOPHIL # 0.1 TH/MM3 (0-0.4); EOSINOPHIL % 0.9 % (0.0-4.0); HEMATOCRIT 30.4 % (35.0-46.0); HEMO FLAGS DIFF FINAL; LYMPH % 9.1 % (9.0-44.0); MEAN CELL VOLUME 98.1 FL (80.0-100.0); MEAN CORPUSCULAR HEMOGLOBIN 31.7 PG (27.0-34.0); MEAN CORPUSCULAR HGB CONC 32.3 % (32.0-36.0); MONO % 8.2 % (0.0-8.0); NEUT % 81.6 % (16.0-70.0); PLATELET COUNT 140 TH/MM3 (150-450); RED CELL DISTRIBUTION WIDTH 18.3 % (11.6-17.2); WHITE BLOOD COUNT 10.9 TH/MM3 (4.0-11.0)
[2017-06-16 04:31] LABS: ANION GAP 7 MEQ/L (5-15); AST (GOT) 26 U/L (15-37); BICARBONATE 25.9 MEQ/L (21.0-32.0); BLOOD UREA NITROGEN 37 MG/DL (7-18); CHLORIDE 110 MEQ/L (98-107); GLOMERULAR FILTRATION RATE 105 ML/MIN (>89); MAGNESIUM 1.7 MG/DL (1.5-2.5); POTASSIUM 3.6 MEQ/L (3.5-5.1); SODIUM (NA) 143 MEQ/L (136-145)
[2017-06-16 04:34] LABS: ALKALINE PHOSPHATASE 100 U/L (45-117); ALT (GPT) 37 U/L (10-53); TOTAL BILIRUBIN ADULT 1.1 MG/DL (0.2-1.0)
[2017-06-16] MEDS: METOCLOPRAMIDE HCL 10 MG/2 ML VIAL IV PUSH SCH ×3 (05:10→20:39)
[2017-06-16] MEDS: CEFEPIME INJ 2,000 MG in SODIUM CHLORIDE 0.9% INJ 100 ML IV SCH ×2 (05:10→17:03)
--- NOTE | 2017-06-16 06:32 | RADRPT ---
EXAM DATE/TIME: 06/16/2017 06:01 [facility] COMPARISON: CHEST SINGLE AP, June 15, 2017, 17:24. INDICATIONS : Respiratory disease. MEDICAL HISTORY : Hypertension. Gastroesophageal reflux disease. SURGICAL HISTORY : Cholecystectomy. ENCOUNTER: Subsequent ACUITY: 1 week PAIN SCORE: Non-responsive. LOCATION: Bilateral chest FINDINGS: A single portable frontal view of the chest shows an endotracheal tube with the tip 1 cm from the car sabiha. Nasogastric tube courses off the inferior margin of the film. Right subclavian central line in g ood position. No pneumothorax. Bibasilar pulmonary consolidations are slightly more pronounced the pr ior study. Small caliber left thoracostomy tube within the subpulmonic space on the left. Mild cardio megaly is stable. CONCLUSION: Slight worsening of the bibasilar pulmonary infiltrates. Raad Meraz Jr., MD on June 16, 2017 at 6:29 Board Certified Radiologist. This report was verified electronically.
--- NOTE | 2017-06-16 08:37 | HHI.CCPN ---
Subjective Remarks/Hospital Course Seizure in a patient with history of increased density at the right tentorium and posterior right interhemispheric fissure consistent with an evolving subdural hemorrhage. 06/12: More alert later in day yesterday. Protects airway well. Required sedation last noc for severe agitation. Family is adamant that we give her sedation. We have tried to explain the risks but they insist. Will avoid benzo - try atypical antipsychotic geodon. 06/13: Still requiring increased O2. Major obstacles are to diurese off effusions and extra water in face of biventricular heart failure, and heart rate control. Update 1230 hours: Patient more SOB. Can't maintain sats on NRBM, struggling. Requires intubation, cultures, abx. Discussed wit the family at the beside. 06/14: Required intubation 06/13. Early culture sputum is benign. CXR still look like heart failure but RML appears to have pneumonitis, probably aspiration during seizure two days ago. BNP > 800. EF 45% 06/15: Tolerated CPAP >1 hour today then became tachypneic. CXR with small to moderate pleural effusion. UO 1.35 L in 24 hours. Approximately 5Kg wt gain since admission. BNP 1042. 06/16: Remains sedated, orally intubated on mechanical ventilation. Had left sided pigtail catheter placed on 06/15 with drainage of about 1.2 L of pleural fluid. Diagnosis: (1) Seizure Diagnosis: Principal (2) Atrial fibrillation with RVR Diagnosis: Principal (3) Morbid obesity with BMI of 40.0-44.9, adult Diagnosis: Principal (4) Hematoma of iliopsoas muscle Diagnosis: Principal (5) Closed traumatic brain injury Diagnosis: Principal (6) HTN (hypertension) Diagnosis: Principal (7) Hyperlipidemia Diagnosis: Principal (8) Depression Diagnosis: Principal (9) Subdural hematoma Diagnosis: Principal Objective Vital Signs Date Time Temp Pulse Resp B/P (MAP) Pulse Ox O2 Delivery O2 Flow Rate FiO2 06/16/17 07:44 100 35 06/16/17 06:00 79 06/16/17 04:00 98.6 24 111/59 (76) 06/15/17 19:00 Mechanical Ventilator 06/13/17 08:11 15.00 Intake and Output 06/16/17 06/16/17 06/17/17 08:00 16:00 00:00 Intake Total 937 ml Output Total 475 ml Balance 462 ml Result Diagram: 06/16/17 0400 06/16/17 0400 Other Results Microbiology Date/Time Source Procedure Growth Status 06/13/17 13:50 Sputum Endotracheal Gram Stain - Final Complete 06/13/17 13:50 Sputum Endotracheal Sputum Culture - Final RARE GROWTH NORMAL RESPIRATORY SAM Complete Imaging Last Impressions Chest X-Ray 06/16/17 0600 Signed Impressions: Service Date/Time: Friday, June 16, 2017 06:01 - CONCLUSION: Slight worsening of the bibasilar pulmonary infiltrates. Raad Meraz Jr., MD Head CT 06/11/17 0000 Signed Impressions: Service Date/Time: May 07:51 - CONCLUSION: Resolving right parietal and right tentorial subdural hematomas with no evidence of new acute hemorrhage, acute infarct, midline shift or extra-axial bleed. Dez Slaughter MD Objective Remarks GENERAL: This is a 76 year old female, critically ill. SKIN: Warm and dry. Unstageable sacral decubitus ulcer HEAD: Atraumatic. Normocephalic. EYES: Right pupil around 2 mm and reactive. Left pupil around 3 mm and reactive. No scleral icterus.No injection or drainage. ENT: No nasal bleeding or discharge. Orotracheally intubated NECK: Trachea midline. + JVD. CARDIOVASCULAR: Tachycardia intermittently, Irreg irreg. S1, S2, without murmur RESPIRATORY: Sparse crackles. No wheezes. Symmetrical excursion. Minimal secretions from ETT. GASTROINTESTINAL: Abdomen soft, non-tender, nondistended. Ostomy site in the right lower quadrant viable and pink MUSCULOSKELETAL: Extremities with resolving ecchymoses involving right knee. Multiple abrasions/old bilateral lower extremities NEUROLOGICAL: Opens eyes to voice. Moves 4 limbs. Follows commands x4 on sedation hold A/P Assessment and Plan Neuro/Psych: TBI 06/14 status post fall Right parafalcine subdural hematoma with a small cortical hemorrhage. Seizure Depression Cataracts/IOC CT brain 05/29 revealed small parafalcine posterior subdural hematoma involving the right tentorium, with a small cortical hemorrhage involving the right parietal field. Repeat CT brain 06/08 revealed evolving subdural hematoma with no new acute bleeding Evaluated by Dr. Peterson. No intervention at that time. CT brain 06/11 R sided subdural hemorrhage resolving EEG 06/11 severe encephalopathy. Prolactin 7.1 Normal. Patient received 1 mg of lorazepam with minimal change in symptomatology Loaded with levetiracetam 1 g followed by 500 mg IV twice a day Seizure precautions. Currently holding duloxetine 30 mg by mouth daily for depression Keep head of bed at 30 CV: Atrial fibrillation with RVR, now rate controlled Hypertension Dyslipidemia Chronic systolic heart failure Echocardiogram 06/14 revealed Normal left ventricular size, wall thickness. LV systolic function is moderately reduced with an estimated EF 40-45%. The right ventricular systoilc function is moderately decreased. A moderate left sided pleural effusion is noted. Initiated on diltiazem drip goal to keep heart rate less than 100. Digoxin level 1.4 on 06/14 Home medications include Lopressor 50 mg twice a day, diltiazem 180 mg daily and digoxin 0.125 mg daily Evaluated by Dr. Matos last admission. Evaluation for possible ablation/ watchman program in near future per his notes Furosemide 40 mg IV twice a day Extra dose digoxin for rate control. Start Cardizem 60 po q6h, try to wean off drip. Resp: Acute respiratory failure Recent right lower lobe pneumonia Left lower lobe effusion likely transudative History of JACOB? PRVC Maintain saturations greater than equal to 92%. 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 Wetzel Patient is tolerating tube feeds, having ostomy output Pantoprazole for GI prophylaxis Docusate sodium/senna 1 tablet twice a day for bowel regimen Ostomy care : Jenkins catheter if indicated for accurate I's and O's in a critically ill patient Endo: Sliding-scale insulin with Accu-Cheks to maintain euglycemia/low regimen with Novulog Renal: Monitor urine output Accurate I's and O's Heme: History of chronic warfarin use History of right femoral artery DVT -embolectomy Dr. Mo at [facility] CHADs VASc score 2. Will require anticoagulation at some point in the future CBC/coags all pending Warfarin was reversed with prothrombin complex concentrate with 35 units per kilogram IV with 10 mg vitamin K ID: Monitor for infection Urine culture elaine +. change Jenkins catheter MSK: Sacral decubitus ulcer stage IV Wound care evaluate and treat PT/OT evaluate and treat FEN: Replace electrolytes as clinically indicated Access - Utilize peripheral IV. - Right SCV CVL placed 06/13 Prophylaxis - GI - pantoprazole - DVT - SCD/pharmacological prophylaxis contraindicated with subdural hematoma with current seizures. Resume when okay with neurosurgery Overall impression: New seizure. Atrial fibrillation with RVR. Biventricular dysfunction. Cardiology following (Siede). Now hypoxemia, possible aspiration pneumonia. Required intubation. Discussed in great detail with a family member at the bedside by Dr. Marina previously. This is most likely an aspiration pneumonitis made worse by CHF and boggy lungs. Failing CPAP trials Critical care 35 mins Serg Allen MD Jun 16, 2017 08:37
[2017-06-16] MEDS: SODIUM CHLORIDE 0.9% FLUSH 10 ML FLUSH IV FLUSH SCH ×2 (08:50→20:39)
[2017-06-16] MEDS: levETIRAcetam INJ 500 MG in SODIUM CHLORIDE 0.9% INJ 100 ML IV SCH ×2 (08:50→20:39)
[2017-06-16] MEDS: FUROSEMIDE 40 MG/4 ML VIAL IV PUSH SCH (08:51)
[2017-06-16] MEDS: DOCUSATE SODIUM 50 MG/SENNA 8.6 MG TAB PO SCH ×2 (08:51→20:39)
[2017-06-16] MEDS: PANTOPRAZOLE SODIUM 40 MG VIAL IV PUSH SCH (08:52)
[2017-06-16] MEDS: DIGOXIN 0.5 MG/2 ML VIAL IV PUSH SCH (08:53)
[2017-06-16] MEDS: CHLORHEXIDINE 0.12% (ORAL KIT) 15 ML CUP MT SCH ×2 (08:53→20:38)
--- NOTE | 2017-06-16 09:38 | HHI.PR ---
Review/Management Daily Summary 06/12 family at bedside she was sedated due to severe agitation no seizure recurrence continue sushant monitor dr Yeager covering prn weekend 06/16 spoke to his RN this am intubated and sedated but making progress medically will monitor neuro status sushant Subjective Subjective Comments No neuro changes reported no seizures Active Medications Current Medications Medications (Trade) Dose Ordered Sig/Lucina Route Start Time Stop Time Status Last Admin Levetriacetam 500 mg/Sodium Chloride 105 ml @ 420 mls/hr Q12HR IV 06/11/17 09:00 06/16/17 08:50 (NS Flush) 2 ml UNSCH PRN IV FLUSH 06/11/17 06:30 (NS Flush) 2 ml BID IV FLUSH 06/11/17 09:00 06/16/17 08:50 (Protonix Inj) 40 mg DAILY IV PUSH 06/11/17 09:00 06/16/17 08:52 (Tears Naturale Opth Soln) 1 drop TID EACH EYE 06/11/17 09:00 06/15/17 18:20 (Zofran Inj) 4 mg Q6H PRN IV PUSH 06/11/17 06:30 (Albuterol Neb) 2.5 mg Q2HR NEB PRN INH 06/11/17 06:30 06/13/17 05:58 Miscellaneous Information 1 Q361D XX 06/11/17 06:30 06/11/17 07:53 (Chlorhexidine 2% Cloth) 3 pack Taper DAILY@04 TOP 06/12/17 04:00 06/08/18 03:59 (Chlorhexidine 2% Cloth) 3 pack UNSCH PRN TOP 06/11/17 06:30 (Roxann-Colace) 1 tab BID PO 06/11/17 09:00 06/16/17 08:51 (Milk Of Magnesia Liq) 30 ml Q12H PRN PO 06/11/17 06:30 (Senokot) 17.2 mg Q12H PRN PO 06/11/17 06:30 (Dulcolax Supp) 10 mg DAILY PRN RECTAL 06/11/17 06:30 (Lactulose Liq) 30 ml DAILY PRN PO 06/11/17 06:30 Diltiazem HCl 125 mg/Sodium Chloride 125 ml @ 5 mls/hr TITRATE PRN IV 06/11/17 07:00 06/15/17 08:03 (Lanoxin Inj) 0.125 mg DAILY IV PUSH 06/11/17 12:30 06/16/17 08:53 (Tylenol 650 Mg/ 20 ml Liq) 650 mg Q6H PRN PO 06/11/17 14:15 06/14/17 21:15 Potassium Chloride 100 ml @ 50 mls/hr Q2H PRN IV 06/12/17 08:30 06/14/17 05:54 Potassium Chloride 100 ml @ 50 mls/hr Q2H PRN IV 06/12/17 08:30 (K-Lyte Cl Eff) 50 meq UNSCH PRN PO 06/12/17 08:30 Potassium Chloride 100 ml @ 25 mls/hr UNSCH PRN IV 06/12/17 08:30 Potassium Chloride 100 ml @ 50 mls/hr Q2H PRN IV 06/12/17 08:30 Magnesium Sulfate 4 gm/Sodium Chloride 100 ml @ 50 mls/hr UNSCH PRN IV 06/12/17 08:30 (Mag-Ox) 800 mg UNSCH PRN PO 06/12/17 08:30 Magnesium Sulfate 2 gm/Sodium Chloride 100 ml @ 50 mls/hr UNSCH PRN IV 06/12/17 08:30 (K-Phos) 2,000 mg Q4H PRN PO 06/12/17 08:30 Sodium Phosphate 30 mmol/Sodium Chloride 250 ml @ 42 mls/hr UNSCH PRN IV 06/12/17 08:30 (K-Phos) 2,000 mg UNSCH PRN PO/TUBE 06/12/17 08:30 Potassium Phosphate 30 mmol/ Sodium Chloride 260 ml @ 42 mls/hr UNSCH PRN IV 06/12/17 08:30 06/14/17 05:49 (Geodon Inj) 20 mg Q6H PRN IM 06/12/17 11:15 06/12/17 11:14 (Peridex 0.12% Liq) 15 ml BID@08,20 MT 06/13/17 20:00 06/16/17 08:53 Propofol 100 ml @ 2.688 mls/ hr TITRATE PRN IV 06/13/17 12:45 06/16/17 05:23 Fentanyl Citrate 250 ml @ 5 mls/hr TITRATE PRN IV 06/13/17 12:45 Pharmacy Profile Note 0 ml @ 0 mls/hr UNSCH OTHER 06/13/17 12:45 Vancomycin HCl 1250 mg/Sodium Chloride 262.5 ml @ 250 mls/hr Q18H IV 06/13/17 16:00 06/15/17 23:06 (Beneprotein Powder) 1 pack TID G-TUBE 06/13/17 18:00 06/15/17 18:23 (Reglan Inj) 10 mg Q8HR IV PUSH 06/13/17 15:45 06/16/17 05:10 Cefepime HCl 2000 mg/Sodium Chloride 100 ml @ 200 mls/hr Q12H IV 06/13/17 18:00 06/16/17 05:10 (Lasix Inj) 40 mg DAILY IV PUSH 06/14/17 09:15 06/16/17 08:51 (Cardizem) 60 mg Q6HR PO 06/14/17 12:00 06/16/17 05:10 Allergies Allergies Coded Allergies codeine (Verified Allergy, Severe, NAUSEA, 05/29/17) piperacillin (Verified Allergy, Intermediate, Rash, 05/29/17) tazobactam (Verified Allergy, Intermediate, Rash, 05/29/17) Exam I&O / VS Vital Signs Date Time Temp Pulse Resp B/P (MAP) Pulse Ox O2 Delivery O2 Flow Rate FiO2 06/16/17 07:44 100 35 06/16/17 06:00 79 06/16/17 04:00 35 06/16/17 04:00 98.6 71 24 111/59 (76) 99 06/16/17 04:00 71 06/16/17 03:54 99 35 06/16/17 02:00 89 06/16/17 00:07 100 35 06/16/17 00:00 99 06/16/17 00:00 35 06/16/17 00:00 100.0 99 28 111/69 (83) 100 06/15/17 22:00 88 06/15/17 20:00 99.3 80 32 111/57 (75) 100 06/15/17 20:00 77 06/15/17 20:00 35 06/15/17 19:00 100 Mechanical Ventilator 35 06/15/17 18:00 84 9/18/17 17:39 83 108/59 06/15/17 16:00 35 06/15/17 16:00 99.1 88 27 98/50 (66) 100 06/15/17 16:00 85 06/15/17 14:00 91 06/15/17 12:00 35 06/15/17 12:00 88 06/15/17 12:00 99.1 88 26 114/56 (75) 100 06/15/17 11:28 97 35 06/15/17 10:00 97 Respiratory: Lungs CTA, Non-labored respirations, Symmetrical expansion, Other Cardiology: Normal rate, Intact pulses, Irregular Rhythm Musculoskeletal: ROM, Tenderness, Swelling, Other Objective Micro and Labs Laboratory Tests Test 06/15/17 17:30 06/15/17 20:45 06/16/17 04:00 Pleural Fluid pH 8.5 Pleural Fluid WBC 1048 Pleural Fluid RBC 46285 Pleural Fluid Neutrophils 12 Pleural Fluid Lymphocytes 77 Pleural Fluid Monocytes 3 Pleural Fluid Histiocytes 2 Pleural Fluid Mesothelial Cells 6 Pleural Fluid Total Protein 2.1 Pleural Fluid LDH 179 Pleural Fluid Glucose 152 Vancomycin Level Trough 13.8 White Blood Count 10.9 Red Blood Count 3.10 Hemoglobin 9.8 Hematocrit 30.4 Mean Corpuscular Volume 98.1 Mean Corpuscular Hemoglobin 31.7 Mean Corpuscular Hemoglobin Concent 32.3 Red Cell Distribution Width 18.3 Platelet Count 140 Mean Platelet Volume 8.2 Neutrophils (%) (Auto) 81.6 Lymphocytes (%) (Auto) 9.1 Monocytes (%) (Auto) 8.2 Eosinophils (%) (Auto) 0.9 Basophils (%) (Auto) 0.2 Neutrophils # (Auto) 8.9 Lymphocytes # (Auto) 1.0 Monocytes # (Auto) 0.9 Eosinophils # (Auto) 0.1 Basophils # (Auto) 0.0 CBC Comment DIFF FINAL Differential Comment Blood Urea Nitrogen 37 Creatinine 0.56 Random Glucose 145 Total Protein 5.7 Albumin 2.1 Calcium Level 9.0 Magnesium Level 1.7 Alkaline Phosphatase 100 Aspartate Amino Transf (AST/SGOT) 26 Alanine Aminotransferase (ALT/SGPT) 37 Total Bilirubin 1.1 Sodium Level 143 Potassium Level 3.6 Chloride Level 110 Carbon Dioxide Level 25.9 Anion Gap 7 Estimat Glomerular Filtration Rate 105 Date/Time Source Procedure Growth Status 06/11/17 12:08 Blood Peripheral Aerobic Blood Culture - Preliminary NO GROWTH IN 4 DAYS Resulted 06/11/17 12:08 Blood Peripheral Anaerobic Blood Culture - Preliminary NO GROWTH IN 4 DAYS Resulted 06/15/17 17:30 Fluid Pleural Fluid Fungal Smear Pending Received 06/15/17 17:30 Fluid Pleural Fluid Fungal Culture Pending Received 06/13/17 13:50 Sputum Endotracheal Gram Stain - Final Complete 06/13/17 13:50 Sputum Endotracheal Sputum Culture - Final RARE GROWTH NORMAL RESPIRATORY SAM Complete 06/11/17 06:58 Urine Catheterized Urine Urine Culture - Final Lisa Glabrata Complete Kraig Paris MD Jun 16, 2017 09:38
[2017-06-16] MEDS: ARTIFICIAL TEARS OPTH SOLN 15 ML BTL EACH EYE SCH ×3 (10:22→17:03)
[2017-06-16] MEDS: BENEPROTEIN POWDER 1 PACK G-TUBE SCH ×3 (12:24→17:03)
[2017-06-16] MEDS: VANCOMYCIN INJ 1,500 MG in SODIUM CHLORID 0.9% 500 ML INJ 500 ML IV SCH (16:06)
[2017-06-16 19:22] LABS: CRITICAL VALUE YES
[2017-06-17] VITALS (18 sets, daily range): BP systolic 102–128; BP diastolic 55–77; PULSE 79–115; RESP 23–36; TEMP 99–99.9; O2SAT 92–100
[2017-06-17] MEDS: CHLORHEXIDINE GLUCONATE 2 % 1 PACK (2 CLOTHS) TOP SCH (00:01)
[2017-06-17] MEDS: DILTIAZEM HCL 60 MG TAB PO SCH ×4 (00:08→15:02)
[2017-06-17] MEDS: PROPOFOL 1000 MG/100 ML INJ 100 ML IV PRN ×2 (04:11→19:56)
[2017-06-17] MEDS: METOCLOPRAMIDE HCL 10 MG/2 ML VIAL IV PUSH SCH ×3 (05:15→21:58)
[2017-06-17] MEDS: CEFEPIME INJ 2,000 MG in SODIUM CHLORIDE 0.9% INJ 100 ML IV SCH ×2 (05:16→18:21)
[2017-06-17] MEDS: DIGOXIN 0.5 MG/2 ML VIAL IV PUSH SCH (08:41)
[2017-06-17] MEDS: levETIRAcetam INJ 500 MG in SODIUM CHLORIDE 0.9% INJ 100 ML IV SCH ×2 (08:41→19:49)
[2017-06-17] MEDS: DOCUSATE SODIUM 50 MG/SENNA 8.6 MG TAB PO SCH ×2 (08:41→19:49)
[2017-06-17] MEDS: VANCOMYCIN INJ 1,500 MG in SODIUM CHLORID 0.9% 500 ML INJ 500 ML IV SCH (08:42)
[2017-06-17] MEDS: PANTOPRAZOLE SODIUM 40 MG VIAL IV PUSH SCH (08:42)
[2017-06-17] MEDS: FUROSEMIDE 40 MG/4 ML VIAL IV PUSH SCH (08:42)
[2017-06-17] MEDS: ARTIFICIAL TEARS OPTH SOLN 15 ML BTL EACH EYE SCH ×3 (08:43→18:21)
[2017-06-17] MEDS: SODIUM CHLORIDE 0.9% FLUSH 10 ML FLUSH IV FLUSH SCH ×2 (08:43→19:49)
[2017-06-17] MEDS: BENEPROTEIN POWDER 1 PACK G-TUBE SCH ×3 (08:43→18:21)
[2017-06-17] MEDS: CHLORHEXIDINE 0.12% (ORAL KIT) 15 ML CUP MT SCH ×2 (08:43→19:49)
--- NOTE | 2017-06-17 11:08 | HHI.CCPN ---
Subjective Remarks/Hospital Course Seizure in a patient with history of increased density at the right tentorium and posterior right interhemispheric fissure consistent with an evolving subdural hemorrhage. 06/12: More alert later in day yesterday. Protects airway well. Required sedation last noc for severe agitation. Family is adamant that we give her sedation. We have tried to explain the risks but they insist. Will avoid benzo - try atypical antipsychotic geodon. 06/13: Still requiring increased O2. Major obstacles are to diurese off effusions and extra water in face of biventricular heart failure, and heart rate control. Update 1230 hours: Patient more SOB. Can't maintain sats on NRBM, struggling. Requires intubation, cultures, abx. Discussed wit the family at the beside. 06/14: Required intubation 06/13. Early culture sputum is benign. CXR still look like heart failure but RML appears to have pneumonitis, probably aspiration during seizure two days ago. BNP > 800. EF 45% 06/15: Tolerated CPAP >1 hour today then became tachypneic. CXR with small to moderate pleural effusion. UO 1.35 L in 24 hours. Approximately 5Kg wt gain since admission. BNP 1042. 06/16: Remains sedated, orally intubated on mechanical ventilation. Had left sided pigtail catheter placed on 06/15 with drainage of about 1.2 L of pleural fluid. 06/17: Remains sedated, orally intubated on mechanical ventilation. Failing C Pap trials. Diagnosis: (1) Seizure Diagnosis: Principal (2) Atrial fibrillation with RVR Diagnosis: Principal (3) Morbid obesity with BMI of 40.0-44.9, adult Diagnosis: Principal (4) Hematoma of iliopsoas muscle Diagnosis: Principal (5) Closed traumatic brain injury Diagnosis: Principal (6) HTN (hypertension) Diagnosis: Principal (7) Hyperlipidemia Diagnosis: Principal (8) Depression Diagnosis: Principal (9) Subdural hematoma Diagnosis: Principal Objective Vital Signs Date Time Temp Pulse Resp B/P (MAP) Pulse Ox O2 Delivery O2 Flow Rate FiO2 06/17/17 10:00 90 06/17/17 10:00 35 06/17/17 08:46 96 06/17/17 08:00 99.0 36 110/60 (77) 06/16/17 07:00 Mechanical Ventilator 06/13/17 08:11 15.00 Intake and Output 06/17/17 06/17/17 06/18/17 08:00 16:00 00:00 Intake Total 627 ml Output Total 630.0 ml Balance -3.0 ml Result Diagram: 06/16/17 0400 06/16/17 0400 Imaging Last Impressions Chest X-Ray 06/16/17 0600 Signed Impressions: Service Date/Time: Friday, June 16, 2017 06:01 - CONCLUSION: Slight worsening of the bibasilar pulmonary infiltrates. Raad Meraz Jr., MD Head CT 06/11/17 0000 Signed Impressions: Service Date/Time: May 07:51 - CONCLUSION: Resolving right parietal and right tentorial subdural hematomas with no evidence of new acute hemorrhage, acute infarct, midline shift or extra-axial bleed. Dez Slaughter MD Objective Remarks GENERAL: This is a 76 year old female, critically ill. SKIN: Warm and dry. Unstageable sacral decubitus ulcer HEAD: Atraumatic. Normocephalic. EYES: Right pupil around 2 mm and reactive. Left pupil around 3 mm and reactive. No scleral icterus.No injection or drainage. ENT: No nasal bleeding or discharge. Orotracheally intubated NECK: Trachea midline. + JVD. CARDIOVASCULAR: Tachycardia intermittently, Irreg irreg. S1, S2, without murmur RESPIRATORY: Sparse crackles. No wheezes. Symmetrical excursion. Minimal secretions from ETT. GASTROINTESTINAL: Abdomen soft, non-tender, nondistended. Ostomy site in the right lower quadrant viable and pink MUSCULOSKELETAL: Extremities with resolving ecchymoses involving right knee. Multiple abrasions/old bilateral lower extremities NEUROLOGICAL: Opens eyes to voice. Moves 4 limbs. Follows commands x4 on sedation hold A/P Assessment and Plan Neuro/Psych: TBI 06/14 status post fall Right parafalcine subdural hematoma with a small cortical hemorrhage. Seizure Depression Cataracts/IOC CT brain 05/29 revealed small parafalcine posterior subdural hematoma involving the right tentorium, with a small cortical hemorrhage involving the right parietal field. Repeat CT brain 06/08 revealed evolving subdural hematoma with no new acute bleeding Evaluated by Dr. Peterson. No intervention at that time. CT brain 06/11 R sided subdural hemorrhage resolving EEG 06/11 severe encephalopathy. Prolactin 7.1 Normal. Patient received 1 mg of lorazepam with minimal change in symptomatology Loaded with levetiracetam 1 g followed by 500 mg IV twice a day Seizure precautions. Currently holding duloxetine 30 mg by mouth daily for depression Keep head of bed at 30 CV: Atrial fibrillation with RVR, now rate controlled Hypertension Dyslipidemia Chronic systolic heart failure Echocardiogram 06/14 revealed Normal left ventricular size, wall thickness. LV systolic function is moderately reduced with an estimated EF 40-45%. The right ventricular systoilc function is moderately decreased. A moderate left sided pleural effusion is noted. Initiated on diltiazem drip goal to keep heart rate less than 100. Digoxin level 1.4 on 06/14 Home medications include Lopressor 50 mg twice a day, diltiazem 180 mg daily and digoxin 0.125 mg daily Evaluated by Dr. Matos last admission. Evaluation for possible ablation/ watchman program in near future per his notes Furosemide 40 mg IV twice a day Extra dose digoxin for rate control. Start Cardizem 60 po q6h, try to wean off drip. Resp: Acute respiratory failure Recent right lower lobe pneumonia Left lower lobe effusion likely transudative History of JACOB? PRVC Maintain saturations greater than equal to 92%. 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 Wetzel Patient is tolerating tube feeds, having ostomy output Pantoprazole for GI prophylaxis Docusate sodium/senna 1 tablet twice a day for bowel regimen Ostomy care : Jenkins catheter if indicated for accurate I's and O's in a critically ill patient Endo: Sliding-scale insulin with Accu-Cheks to maintain euglycemia/low regimen with Novulog Renal: Monitor urine output Accurate I's and O's Heme: History of chronic warfarin use History of right femoral artery DVT -embolectomy Dr. Mo at [facility] CHADs VASc score 2. Will require anticoagulation at some point in the future CBC/coags all pending Warfarin was reversed with prothrombin complex concentrate with 35 units per kilogram IV with 10 mg vitamin K ID: Monitor for infection Urine culture elaine +. change Jenkins catheter MSK: Sacral decubitus ulcer stage IV Wound care evaluate and treat PT/OT evaluate and treat FEN: Replace electrolytes as clinically indicated Access - Utilize peripheral IV. - Right SCV CVL placed 06/13 Prophylaxis - GI - pantoprazole - DVT - SCD/pharmacological prophylaxis contraindicated with subdural hematoma with current seizures. Resume when okay with neurosurgery Overall impression: New seizure. Atrial fibrillation with RVR. Biventricular dysfunction. Cardiology following (S[place]e). Now hypoxemia, possible aspiration pneumonia. Required intubation. Discussed in great detail with a family member at the bedside by Dr. Marina previously. This is most likely an aspiration pneumonitis made worse by CHF and boggy lungs. Failing CPAP trials Critical care 35 mins Serg Allen MD Jun 17, 2017 11:08
[2017-06-17] MEDS ORDERED: FUROSEMIDE 40 MG/4 ML VIAL IV PUSH ONE (12:45)
--- NOTE | 2017-06-17 13:52 | RADRPT ---
EXAM DATE/TIME: 06/17/2017 12:44 [facility] COMPARISON: No previous studies available for comparison. INDICATIONS : Abdominal distention for a day. MEDICAL HISTORY : Hypertension. Gastroesophageal reflux disease. SURGICAL HISTORY : Colon resection. Cholecystectomy. ENCOUNTER: Subsequent ACUITY: 2 days PAIN SCORE: Non-responsive. LOCATION: Abdomen, all quadrants. FINDINGS: Nasogastric tube across the GE junction. Abdomen is relatively gasless. CONCLUSION: NG tube across the GE junction. Vic Romero MD FACR on June 17, 2017 at 13:33 Board Certified Radiologist. This report was verified electronically.
[2017-06-18] VITALS (18 sets, daily range): BP systolic 104–142; BP diastolic 30–69; PULSE 74–84; RESP 20–28; TEMP 98.2–100.2; O2SAT 96–100
[2017-06-18] MEDS: DILTIAZEM HCL 60 MG TAB PO SCH ×5 (00:03→23:35)
[2017-06-18] MEDS: PROPOFOL 1000 MG/100 ML INJ 100 ML IV PRN (01:23)
[2017-06-18] MEDS ORDERED: PHARMACY ORDERED LAB ONE (03:45)
[2017-06-18] MEDS: CHLORHEXIDINE GLUCONATE 2 % 1 PACK (2 CLOTHS) TOP SCH (03:54)
[2017-06-18] MEDS: VANCOMYCIN INJ 1,500 MG in SODIUM CHLORID 0.9% 500 ML INJ 500 ML IV SCH ×2 (03:54→22:31)
[2017-06-18 04:08] LABS: AUTOMATED NEUTROPHIL # 7.6 TH/MM3 (1.8-7.7); BASOPHIL # 0.1 TH/MM3 (0-0.2); BASOPHIL % 0.7 % (0.0-2.0); EOSINOPHIL # 0.2 TH/MM3 (0-0.4); HEMATOCRIT 30.7 % (35.0-46.0); HEMO FLAGS DIFF FINAL; LYMPH % 10.5 % (9.0-44.0); MEAN CELL VOLUME 97.4 FL (80.0-100.0); MEAN CORPUSCULAR HEMOGLOBIN 30.9 PG (27.0-34.0); MEAN CORPUSCULAR HGB CONC 31.7 % (32.0-36.0); MONO % 9.1 % (0.0-8.0); NEUT % 77.7 % (16.0-70.0); PLATELET COUNT 142 TH/MM3 (150-450); RED BLOOD COUNT 3.15 MIL/MM3 (4.00-5.30); RED CELL DISTRIBUTION WIDTH 18.4 % (11.6-17.2); WHITE BLOOD COUNT 9.8 TH/MM3 (4.0-11.0)
[2017-06-18 04:26] LABS: ALT (GPT) 35 U/L (10-53); ANION GAP 6 MEQ/L (5-15); AST (GOT) 31 U/L (15-37); BICARBONATE 27.9 MEQ/L (21.0-32.0); BLOOD UREA NITROGEN 34 MG/DL (7-18); CHLORIDE 110 MEQ/L (98-107); GLOMERULAR FILTRATION RATE 115 ML/MIN (>89); POTASSIUM 3.4 MEQ/L (3.5-5.1); SODIUM (NA) 144 MEQ/L (136-145)
[2017-06-18 04:28] LABS: ALKALINE PHOSPHATASE 151 U/L (45-117)
[2017-06-18] MEDS: METOCLOPRAMIDE HCL 10 MG/2 ML VIAL IV PUSH SCH ×3 (06:22→20:38)
[2017-06-18] MEDS: CEFEPIME INJ 2,000 MG in SODIUM CHLORIDE 0.9% INJ 100 ML IV SCH ×2 (06:23→17:32)
[2017-06-18] MEDS: BENEPROTEIN POWDER 1 PACK G-TUBE SCH ×3 (09:00→16:54)
[2017-06-18] MEDS: ARTIFICIAL TEARS OPTH SOLN 15 ML BTL EACH EYE SCH ×3 (09:12→16:54)
[2017-06-18] MEDS: CHLORHEXIDINE 0.12% (ORAL KIT) 15 ML CUP MT SCH ×2 (09:12→20:39)
[2017-06-18] MEDS: levETIRAcetam INJ 500 MG in SODIUM CHLORIDE 0.9% INJ 100 ML IV SCH ×2 (09:13→20:38)
[2017-06-18] MEDS: SODIUM CHLORIDE 0.9% FLUSH 10 ML FLUSH IV FLUSH SCH ×2 (09:13→20:39)
[2017-06-18] MEDS: FUROSEMIDE 40 MG/4 ML VIAL IV PUSH SCH (09:14)
[2017-06-18] MEDS: DOCUSATE SODIUM 50 MG/SENNA 8.6 MG TAB PO SCH ×2 (09:14→20:39)
[2017-06-18] MEDS: PANTOPRAZOLE SODIUM 40 MG VIAL IV PUSH SCH (09:14)
[2017-06-18] MEDS: DIGOXIN 0.5 MG/2 ML VIAL IV PUSH SCH (09:14)
--- NOTE | 2017-06-18 13:47 | HHI.CCPN ---
Subjective Remarks/Hospital Course Seizure in a patient with history of increased density at the right tentorium and posterior right interhemispheric fissure consistent with an evolving subdural hemorrhage. 06/12: More alert later in day yesterday. Protects airway well. Required sedation last noc for severe agitation. Family is adamant that we give her sedation. We have tried to explain the risks but they insist. Will avoid benzo - try atypical antipsychotic geodon. 06/13: Still requiring increased O2. Major obstacles are to diurese off effusions and extra water in face of biventricular heart failure, and heart rate control. Update 1230 hours: Patient more SOB. Can't maintain sats on NRBM, struggling. Requires intubation, cultures, abx. Discussed wit the family at the beside. 06/14: Required intubation 06/13. Early culture sputum is benign. CXR still look like heart failure but RML appears to have pneumonitis, probably aspiration during seizure two days ago. BNP > 800. EF 45% 06/15: Tolerated CPAP >1 hour today then became tachypneic. CXR with small to moderate pleural effusion. UO 1.35 L in 24 hours. Approximately 5Kg wt gain since admission. BNP 1042. 06/16: Remains sedated, orally intubated on mechanical ventilation. Had left sided pigtail catheter placed on 06/15 with drainage of about 1.2 L of pleural fluid. 06/17: Remains sedated, orally intubated on mechanical ventilation. Failing C Pap trials. 06/18: No acute events overnight. Gets agitated on sedation hold. Start Precedex to facilitate ventilator weaning. L chest tube draining 270 ml in 24 hours Objective Vital Signs Date Time Temp Pulse Resp B/P (MAP) Pulse Ox O2 Delivery O2 Flow Rate FiO2 06/18/17 12:00 30 06/18/17 12:00 99.7 79 28 107/50 (69) 98 06/16/17 07:00 Mechanical Ventilator Intake and Output 06/18/17 06/18/17 06/19/17 08:00 16:00 00:00 Intake Total 1027 ml Output Total 610.0 ml Balance 417.0 ml Result Diagram: 06/18/17 0345 06/18/17 0345 Other Results Microbiology Date/Time Source Procedure Growth Status 06/15/17 17:30 Fluid Pleural Fluid Gram Stain - Final Complete 06/15/17 17:30 Fluid Pleural Fluid Body Fluid Culture - Final NO GROWTH IN 72 HRS.--AEROBICALLY OR ... Complete Imaging Last Impressions Chest X-Ray 06/16/17 0600 Signed Impressions: Service Date/Time: Friday, June 16, 2017 06:01 - CONCLUSION: Slight worsening of the bibasilar pulmonary infiltrates. Raad Meraz Jr., MD Head CT 06/11/17 0000 Signed Impressions: Service Date/Time: May 07:51 - CONCLUSION: Resolving right parietal and right tentorial subdural hematomas with no evidence of new acute hemorrhage, acute infarct, midline shift or extra-axial bleed. Dez Slaughter MD Objective Remarks GENERAL: This is a 76 year old female, critically ill. SKIN: Warm and dry. Unstageable sacral decubitus ulcer HEAD: Atraumatic. Normocephalic. EYES: Right pupil around 2 mm and reactive. Left pupil around 3 mm and reactive. No scleral icterus.No injection or drainage. ENT: No nasal bleeding or discharge. Orotracheally intubated NECK: Trachea midline. + JVD. CARDIOVASCULAR: Tachycardia intermittently, Irreg irreg. S1, S2, without murmur RESPIRATORY: Sparse crackles. No wheezes. Symmetrical excursion. Minimal secretions from ETT. L chest tube with 270 ml in 24 hours GASTROINTESTINAL: Abdomen soft, non-tender, nondistended. Ostomy site in the right lower quadrant viable and pink MUSCULOSKELETAL: Extremities with resolving ecchymoses involving right knee. Multiple abrasions/old bilateral lower extremities NEUROLOGICAL: Opens eyes to voice. Moves 4 limbs. Follows commands x4 intermittently, gets agitated on holding sedation A/P Assessment and Plan Neuro/Psych: TBI 06/14 status post fall Right parafalcine subdural hematoma with a small cortical hemorrhage. Seizure Depression Cataracts/IOC CT brain 05/29 revealed small parafalcine posterior subdural hematoma involving the right tentorium, with a small cortical hemorrhage involving the right parietal field. Repeat CT brain 06/08 revealed evolving subdural hematoma with no new acute bleeding. Evaluated by Dr. Peterson. No intervention at that time. CT brain 06/11 R sided subdural hemorrhage resolving EEG 06/11 severe encephalopathy. Prolactin 7.1 Normal. Patient received 1 mg of lorazepam with minimal change in symptomatology Loaded with levetiracetam 1 g followed by 500 mg IV twice a day Seizure precautions. Currently holding duloxetine 30 mg by mouth daily for depression Keep head of bed at 30 Start Precedex to facilitate weaning trials CV: Atrial fibrillation with RVR, now rate controlled Hypertension Dyslipidemia Chronic systolic heart failure Echocardiogram 06/14 revealed Normal left ventricular size, wall thickness. LV systolic function is moderately reduced with an estimated EF 40-45%. The right ventricular systoilc function is moderately decreased. A moderate left sided pleural effusion is noted. Diltiazem drip goal to keep heart rate less than 100, use as needed. Cardizem 60 po q6h Digoxin level 1.4 on 06/14 Home medications include Lopressor 50 mg twice a day, diltiazem 180 mg daily and digoxin 0.125 mg daily Evaluated by Dr. Matos last admission. Evaluation for possible ablation/ watchman program in near future per his notes Furosemide 40 mg IV twice a day Resp: Acute respiratory failure Recent right lower lobe pneumonia Left lower lobe effusion likely transudative History of JACOB? PRVC Maintain saturations greater than equal to 92%. 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 Wetzel Patient is tolerating tube feeds, having ostomy output Pantoprazole for GI prophylaxis Docusate sodium/senna 1 tablet twice a day for bowel regimen Ostomy care : Jenkins catheter if indicated for accurate I's and O's in a critically ill patient Endo: Sliding-scale insulin with Accu-Cheks to maintain euglycemia/low regimen with Novulog Renal: Monitor urine output Accurate I's and O's Heme: History of chronic warfarin use History of right femoral artery thrombus -embolectomy Dr. Mo at [facility] CHADs VASc score 2. Will require anticoagulation at some point in the future CBC/coags all pending Warfarin was reversed with prothrombin complex concentrate with 35 units per kilogram IV with 10 mg vitamin K ID: Monitor for infection Urine culture elaine +. change Jenkins catheter MSK: Sacral decubitus ulcer stage IV Wound care evaluate and treat PT/OT evaluate and treat FEN: Replace electrolytes as clinically indicated Access - Utilize peripheral IV. - Right SCV CVL placed 06/13 Prophylaxis - GI - pantoprazole - DVT - SCD/pharmacological prophylaxis contraindicated with subdural hematoma with current seizures. Resume when okay with neurosurgery Overall impression: New seizure. Atrial fibrillation with RVR. Biventricular dysfunction. Cardiology following (Siede). Now hypoxemia, possible aspiration pneumonia. Required intubation. Discussed in great detail with a family member at the bedside by Dr. Marina previously. This is most likely an aspiration pneumonitis made worse by CHF and boggy lungs. Failing CPAP trials. Start Precedex to facilitate weaning trials Critical care 35 mins Carolina Pina MD Jun 18, 2017 13:47
[2017-06-18] MEDS: DEXMEDETOMIDINE INJ 200 MCG in SODIUM CHLORIDE 0.9% INJ 50 ML IV PRN ×4 (14:18→23:35)
[2017-06-19] VITALS (18 sets, daily range): BP systolic 99–125; BP diastolic 52–66; PULSE 49–87; RESP 18–24; TEMP 97.6–99.9; O2SAT 94–100
[2017-06-19] MEDS ORDERED: ALBUMIN HUMAN 25% 25 GM/100 ML BAGP IV ONE
[2017-06-19] MEDS: CHLORHEXIDINE GLUCONATE 2 % 1 PACK (2 CLOTHS) TOP SCH (04:00)
[2017-06-19] MEDS: DEXMEDETOMIDINE INJ 200 MCG in SODIUM CHLORIDE 0.9% INJ 50 ML IV PRN ×3 (05:05→19:52)
[2017-06-19] MEDS: METOCLOPRAMIDE HCL 10 MG/2 ML VIAL IV PUSH SCH ×3 (05:06→21:10)
[2017-06-19] MEDS: CEFEPIME INJ 2,000 MG in SODIUM CHLORIDE 0.9% INJ 100 ML IV SCH ×2 (05:06→17:53)
[2017-06-19] MEDS: DILTIAZEM HCL 60 MG TAB PO SCH ×4 (06:00→23:10)
[2017-06-19] MEDS: CHLORHEXIDINE 0.12% (ORAL KIT) 15 ML CUP MT SCH ×2 (08:00→19:51)
[2017-06-19] MEDS: ARTIFICIAL TEARS OPTH SOLN 15 ML BTL EACH EYE SCH ×3 (09:00→18:00)
[2017-06-19] MEDS: BENEPROTEIN POWDER 1 PACK G-TUBE SCH ×3 (09:00→18:00)
[2017-06-19] MEDS: SODIUM CHLORIDE 0.9% FLUSH 10 ML FLUSH IV FLUSH SCH ×2 (09:00→20:17)
[2017-06-19] MEDS: PANTOPRAZOLE SODIUM 40 MG VIAL IV PUSH SCH (09:24)
[2017-06-19] MEDS: levETIRAcetam INJ 500 MG in SODIUM CHLORIDE 0.9% INJ 100 ML IV SCH ×2 (09:24→20:18)
[2017-06-19] MEDS: FUROSEMIDE 40 MG/4 ML VIAL IV PUSH SCH (09:25)
[2017-06-19] MEDS: DOCUSATE SODIUM 50 MG/SENNA 8.6 MG TAB PO SCH ×2 (09:33→20:17)
[2017-06-19 09:54] LABS: BASOPHIL # 0.1 TH/MM3 (0-0.2); BASOPHIL % 0.7 % (0.0-2.0); EOSINOPHIL # 0.3 TH/MM3 (0-0.4); EOSINOPHIL % 3.3 % (0.0-4.0); HEMATOCRIT 31.7 % (35.0-46.0); HEMO FLAGS DIFF FINAL; LYMPH % 12.7 % (9.0-44.0); LYMPHOCYTE # 1.2 TH/MM3 (1.0-4.8); MEAN CORPUSCULAR HEMOGLOBIN 30.6 PG (27.0-34.0); MEAN CORPUSCULAR HGB CONC 31.3 % (32.0-36.0); MONO % 9.8 % (0.0-8.0); NEUT % 73.5 % (16.0-70.0); PLATELET COUNT 132 TH/MM3 (150-450); RED BLOOD COUNT 3.23 MIL/MM3 (4.00-5.30); RED CELL DISTRIBUTION WIDTH 18.5 % (11.6-17.2); WHITE BLOOD COUNT 9.5 TH/MM3 (4.0-11.0)
--- NOTE | 2017-06-19 09:57 | HHI.CCPN ---
Subjective Remarks/Hospital Course Seizure in a patient with history of increased density at the right tentorium and posterior right interhemispheric fissure consistent with an evolving subdural hemorrhage. 06/12: More alert later in day yesterday. Protects airway well. Required sedation last noc for severe agitation. Family is adamant that we give her sedation. We have tried to explain the risks but they insist. Will avoid benzo - try atypical antipsychotic geodon. 06/13: Still requiring increased O2. Major obstacles are to diurese off effusions and extra water in face of biventricular heart failure, and heart rate control. Update 1230 hours: Patient more SOB. Can't maintain sats on NRBM, struggling. Requires intubation, cultures, abx. Discussed wit the family at the beside. 06/14: Required intubation 06/13. Early culture sputum is benign. CXR still look like heart failure but RML appears to have pneumonitis, probably aspiration during seizure two days ago. BNP > 800. EF 45% 06/15: Tolerated CPAP >1 hour today then became tachypneic. CXR with small to moderate pleural effusion. UO 1.35 L in 24 hours. Approximately 5Kg wt gain since admission. BNP 1042. 06/16: Remains sedated, orally intubated on mechanical ventilation. Had left sided pigtail catheter placed on 06/15 with drainage of about 1.2 L of pleural fluid. 06/17: Remains sedated, orally intubated on mechanical ventilation. Failing C Pap trials. 06/18: No acute events overnight. Gets agitated on sedation hold. Start Precedex to facilitate ventilator weaning. L chest tube draining 270 ml in 24 hours 06/19: Remains intubated sedated with Precedex 0.4 g per KG per hour. Follows commands in bilateral upper extremities. Chest x-ray pending. Chest tube output 350 mL in 24 hours, urine output 1.5 L. Objective Vital Signs Date Time Temp Pulse Resp B/P (MAP) Pulse Ox O2 Delivery O2 Flow Rate FiO2 06/19/17 08:29 99 35 06/19/17 06:00 71 06/19/17 04:00 99.1 18 99/55 (70) 06/16/17 07:00 Mechanical Ventilator Intake and Output 06/19/17 06/19/17 06/20/17 08:00 16:00 00:00 Intake Total 414 ml Output Total 485 ml Balance -71 ml Result Diagram: 06/18/17 0345 06/18/17 0345 Imaging Last Impressions Chest X-Ray 06/16/17 0600 Signed Impressions: Service Date/Time: Friday, June 16, 2017 06:01 - CONCLUSION: Slight worsening of the bibasilar pulmonary infiltrates. Raad Meraz Jr., MD Head CT 06/11/17 0000 Signed Impressions: Service Date/Time: May 07:51 - CONCLUSION: Resolving right parietal and right tentorial subdural hematomas with no evidence of new acute hemorrhage, acute infarct, midline shift or extra-axial bleed. Dez Slaughter MD Objective Remarks GENERAL: This is a 76 year old female, intubated slightly sedated SKIN: Warm and dry. Unstageable sacral decubitus ulcer HEAD: Atraumatic. Normocephalic. EYES: Right pupil around 2 mm and reactive. Left pupil around 3 mm and reactive. No scleral icterus.No injection or drainage. ENT: No nasal bleeding or discharge. Orotracheally intubated NECK: Trachea midline. + JVD. CARDIOVASCULAR: HR controlled, Irreg irreg. S1, S2, without murmur RESPIRATORY: Sparse crackles. No wheezes. Symmetrical excursion. Minimal secretions from ETT. L chest tube with 350 ml in 24 hours GASTROINTESTINAL: Abdomen soft, non-tender, nondistended. Ostomy site in the right lower quadrant viable and pink MUSCULOSKELETAL: Extremities with resolving ecchymoses involving right knee. Multiple abrasions/old bilateral lower extremities NEUROLOGICAL: Opens eyes to voice. Moves 4 limbs. Follows commands x4 today A/P Assessment and Plan Neuro/Psych: TBI 06/14 status post fall Right parafalcine subdural hematoma with a small cortical hemorrhage. Seizure Depression Cataracts/IOC CT brain 05/29 revealed small parafalcine posterior subdural hematoma involving the right tentorium, with a small cortical hemorrhage involving the right parietal field. Repeat CT brain 06/08 revealed evolving subdural hematoma with no new acute bleeding. Per Dr. Peterson- No intervention at that time. CT brain 06/11 R sided subdural hemorrhage resolving EEG 06/11 severe encephalopathy. Prolactin 7.1 Normal. Patient received 1 mg of lorazepam with minimal change in symptomatology Loaded with levetiracetam 1 g followed by 500 mg IV twice a day Seizure precautions. Currently holding duloxetine 30 mg by mouth daily for depression Keep head of bed at 30 Started Precedex to facilitate weaning trials 06/18. DC all continuos sedation CV: Atrial fibrillation with RVR, now rate controlled Hypertension Dyslipidemia Chronic systolic heart failure Echocardiogram 06/14 revealed Normal left ventricular size, wall thickness. LV systolic function is moderately reduced with an estimated EF 40-45%. The right ventricular systolic function is moderately decreased. A moderate left sided pleural effusion is noted. Diltiazem drip goal to keep heart rate less than 100, use as needed. Cardizem 60 po q6h. Digoxin level 1.4 on 06/14 Home medications include Lopressor 50 mg twice a day, diltiazem 180 mg daily and digoxin 0.125 mg daily Evaluated by Dr. Matos last admission. Evaluation for possible ablation/ watchman program in near future per his notes Furosemide 40 mg IV. IV albumin x1 Resp: Acute respiratory failure Recent right lower lobe pneumonia Left pleural effusion History of JACOB? PRVC Maintain saturations greater than equal to 92%. 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 Wetzel Patient is tolerating tube feeds, having ostomy output Pantoprazole for GI prophylaxis Docusate sodium/senna 1 tablet twice a day for bowel regimen : Jenkins catheter if indicated for accurate I's and O's in a critically ill patient IV Lasix as above Endo: Sliding-scale insulin with Accu-Cheks to maintain euglycemia/low regimen with Novulog Renal: Monitor urine output Accurate I's and O's Heme: History of chronic warfarin use History of right femoral artery thrombus -embolectomy Dr. Mo at [facility] CHADs VASc score 2. Will require anticoagulation at some point in the future due to intracranial hemorrhage on hold CBC/coags all pending Warfarin was reversed with prothrombin complex concentrate with 35 units per kilogram IV with 10 mg vitamin K ID: Monitor for infection Urine culture elaine +. change Jenkins catheter MSK: Sacral decubitus ulcer stage IV Wound care evaluate and treat PT/OT evaluate and treat FEN: Replace electrolytes as clinically indicated Access - Utilize peripheral IV. - Right SCV CVL placed 06/13 Prophylaxis - GI - pantoprazole - DVT - SCD/pharmacological prophylaxis contraindicated with subdural hematoma , seizures. Will d/w neurosurgery and start Lovenox 40 mg sq daily 06/19/17 Overall impression: New seizure. Atrial fibrillation with RVR. Biventricular dysfunction. Cardiology following (Siede). Now hypoxemia, possible aspiration pneumonia. Required intubation. Discussed in great detail with a family member at the bedside by Dr. Marina previously. This is most likely an aspiration pneumonitis made worse by CHF and boggy lungs. Failing CPAP trials. Start Precedex to facilitate weaning trials Critical care 35 mins Carolina Pina MD Jun 19, 2017 09:57
[2017-06-19 10:10] LABS: ANION GAP 7 MEQ/L (5-15); AST (GOT) 25 U/L (15-37); BICARBONATE 26.1 MEQ/L (21.0-32.0); BLOOD UREA NITROGEN 40 MG/DL (7-18); CHLORIDE 110 MEQ/L (98-107); GLOMERULAR FILTRATION RATE 99 ML/MIN (>89); POTASSIUM 3.8 MEQ/L (3.5-5.1); SODIUM (NA) 143 MEQ/L (136-145)
[2017-06-19 10:11] LABS: ALT (GPT) 29 U/L (10-53)
[2017-06-19 10:13] LABS: ALKALINE PHOSPHATASE 140 U/L (45-117); TOTAL BILIRUBIN ADULT 1.3 MG/DL (0.2-1.0)
--- NOTE | 2017-06-19 10:27 | RADRPT ---
EXAM DATE/TIME: 06/19/2017 09:51 [facility] COMPARISON: CHEST SINGLE AP, June 16, 2017, 6:01. ABDOMEN KUB ONLY, June 17, 2017, 12:44. INDICATIONS : Respiratory disease. MEDICAL HISTORY : Hypertension. Gastroesophageal reflux disease. SURGICAL HISTORY : Colon resection. Cholecystectomy. ENCOUNTER: Initial ACUITY: 3 weeks PAIN SCORE: 0/10 LOCATION: Bilateral chest FINDINGS: The heart is mildly enlarged. There are diffuse chronic interstitial changes. The lungs are similar i n appearance to the previous examination of 06/16/17. There minimal bibasilar effusions. The ET tube, central line and nasogastric tube appear similar in position. CONCLUSION: 1. Support equipment is in good position. 2. COPD changes. Stable compared to previous. Sandro Romero MD on June 19, 2017 at 10:25 Board Certified Radiologist. This report was verified electronically.
[2017-06-19 11:08] LABS: BLOOD GAS BASE EXCESS 1.1 mmol/L (-2-2); BLOOD GAS HCO3 25 mmol/L (22-26); BLOOD GAS METHEMOGLOBIN 0.8 % (0-2); BLOOD GAS O2 HGB SATURATION 87 % (90-100); BLOOD GAS OXYGEN CONTENT 13.2 Vol % (12.0-20.0); BLOOD GAS PCO2 35 mmHg (38-42); BLOOD GAS PO2 60 mmHg (61-120); BLOOD GAS TOTAL HGB 10.7 G/DL (12.0-16.0); CRITICAL VALUE YES; FIO2 35 %; OXYGEN DEVICE VENTILATOR; TEMP CORR TO 98.6; VENT SETTINGS CPAP IPAP5EPAP5
[2017-06-19 11:09] LABS: DRAW SITE LT RADIAL; NUMBER OF ARTERIAL PUNCTURES 1; STAT NO; ULNAR PULSE PRESENT
[2017-06-19] MEDS: ENOXAPARIN SODIUM 40 MG/0.4 ML SYRINGE SQ SCH (11:09)
[2017-06-19] MEDS: DIGOXIN 0.5 MG/2 ML VIAL IV PUSH SCH (11:09)
[2017-06-19] MEDS: RESP: ALBUTEROL 2.5 MG/IPRATROPIUM 0.5 MG NEB (SCH) NEB ×2 (16:26→20:02)
[2017-06-19] MEDS: VANCOMYCIN INJ 1,500 MG in SODIUM CHLORID 0.9% 500 ML INJ 500 ML IV SCH (16:30)
[2017-06-19 18:29] LABS: STAT NO
[2017-06-20] VITALS (18 sets, daily range): BP systolic 92–123; BP diastolic 51–65; PULSE 76–106; RESP 18–25; TEMP 97.8–99.7; O2SAT 90–100
[2017-06-20] MEDS: CHLORHEXIDINE GLUCONATE 2 % 1 PACK (2 CLOTHS) TOP SCH (03:17)
[2017-06-20] MEDS: DEXMEDETOMIDINE INJ 200 MCG in SODIUM CHLORIDE 0.9% INJ 50 ML IV PRN (03:18)
[2017-06-20] MEDS: RESP: ALBUTEROL 2.5 MG/IPRATROPIUM 0.5 MG NEB (SCH) NEB ×4 (03:31→21:48)
[2017-06-20] MEDS: DILTIAZEM HCL 60 MG TAB PO SCH ×4 (05:02→23:23)
[2017-06-20] MEDS: ACETAMINOPHEN 650 MG/20.3 ML UDC PO PRN ×2 (05:02→16:44)
[2017-06-20] MEDS: METOCLOPRAMIDE HCL 10 MG/2 ML VIAL IV PUSH SCH ×3 (05:02→22:25)
[2017-06-20] MEDS: CEFEPIME INJ 2,000 MG in SODIUM CHLORIDE 0.9% INJ 100 ML IV SCH ×2 (05:03→17:02)
[2017-06-20] MEDS: CHLORHEXIDINE 0.12% (ORAL KIT) 15 ML CUP MT SCH ×2 (08:00→20:00)
[2017-06-20] MEDS: PANTOPRAZOLE SODIUM 40 MG VIAL IV PUSH SCH (08:24)
[2017-06-20] MEDS: ASPIRIN 81 MG CHEW TAB CHEW SCH (08:25)
[2017-06-20] MEDS: levETIRAcetam INJ 500 MG in SODIUM CHLORIDE 0.9% INJ 100 ML IV SCH ×2 (08:25→20:30)
[2017-06-20] MEDS: FUROSEMIDE 40 MG/4 ML VIAL IV PUSH SCH (08:25)
[2017-06-20] MEDS: DOCUSATE SODIUM 50 MG/SENNA 8.6 MG TAB PO SCH ×2 (08:25→20:31)
[2017-06-20] MEDS: DIGOXIN 0.5 MG/2 ML VIAL IV PUSH SCH (08:26)
[2017-06-20] MEDS: BENEPROTEIN POWDER 1 PACK G-TUBE SCH ×3 (09:00→17:01)
[2017-06-20] MEDS: SODIUM CHLORIDE 0.9% FLUSH 10 ML FLUSH IV FLUSH SCH ×2 (09:00→20:30)
[2017-06-20] MEDS: ARTIFICIAL TEARS OPTH SOLN 15 ML BTL EACH EYE SCH ×3 (09:00→17:01)
--- NOTE | 2017-06-20 09:08 | HHI.CCPN ---
Subjective Remarks/Hospital Course Seizure in a patient with history of increased density at the right tentorium and posterior right interhemispheric fissure consistent with an evolving subdural hemorrhage. 06/12: More alert later in day yesterday. Protects airway well. Required sedation last noc for severe agitation. Family is adamant that we give her sedation. We have tried to explain the risks but they insist. Will avoid benzo - try atypical antipsychotic geodon. 06/13: Still requiring increased O2. Major obstacles are to diurese off effusions and extra water in face of biventricular heart failure, and heart rate control. Update 1230 hours: Patient more SOB. Can't maintain sats on NRBM, struggling. Requires intubation, cultures, abx. Discussed wit the family at the beside. 06/14: Required intubation 06/13. Early culture sputum is benign. CXR still look like heart failure but RML appears to have pneumonitis, probably aspiration during seizure two days ago. BNP > 800. EF 45% 06/15: Tolerated CPAP >1 hour today then became tachypneic. CXR with small to moderate pleural effusion. UO 1.35 L in 24 hours. Approximately 5Kg wt gain since admission. BNP 1042. 06/16: Remains sedated, orally intubated on mechanical ventilation. Had left sided pigtail catheter placed on 06/15 with drainage of about 1.2 L of pleural fluid. 06/17: Remains sedated, orally intubated on mechanical ventilation. Failing C Pap trials. 06/18: No acute events overnight. Gets agitated on sedation hold. Start Precedex to facilitate ventilator weaning. L chest tube draining 270 ml in 24 hours 06/19: Remains intubated sedated with Precedex 0.4 g per KG per hour. Follows commands in bilateral upper extremities. Chest x-ray pending. Chest tube output 350 mL in 24 hours, urine output 1.5 L. 06/20: Remains intubated on Precedex. Wakes up follows commands. Urine output approximately 2 L. 530 ml chest tube output. Additional 20 mg of Lasix given Objective Vital Signs Date Time Temp Pulse Resp B/P (MAP) Pulse Ox O2 Delivery O2 Flow Rate FiO2 06/20/17 07:46 95 35 06/20/17 06:00 77 06/20/17 04:00 99.7 23 101/51 (68) 06/16/17 07:00 Mechanical Ventilator Intake and Output 06/20/17 06/20/17 06/21/17 08:00 16:00 00:00 Intake Total 1186 ml Output Total 1005 ml Balance 181 ml Result Diagram: 06/19/17 0945 06/20/17 0409 Other Results Laboratory Tests Test 06/19/17 10:48 Blood Gas Puncture Site LT RADIAL Blood Gas Patient Temperature 98.6 Blood Gas HCO3 25 mmol/L (22-26) Blood Gas Base Excess 1.1 mmol/L (-2-2) Blood Gas Oxygen Saturation 87 % (90-100) Arterial Blood pH 7.46 (7.380-7.420) Arterial Blood Partial Pressure CO2 35 mmHg (38-42) Arterial Blood Partial Pressure O2 60 mmHg (61-120) Arterial Blood Oxygen Content 13.2 Vol % (12.0-20.0) Arterial Blood Carboxyhemoglobin 2.0 % (0-4) Arterial Blood Methemoglobin 0.8 % (0-2) Blood Gas Hemoglobin 10.7 G/DL (12.0-16.0) Oxygen Delivery Device VENTILATOR Blood Gas Ventilator Setting CPAP [id number] Blood Gas Inspired Oxygen 35 % Imaging Last Impressions Chest X-Ray 06/16/17 0600 Signed Impressions: Service Date/Time: Friday, June 16, 2017 06:01 - CONCLUSION: Slight worsening of the bibasilar pulmonary infiltrates. Raad Meraz Jr., MD Head CT 06/11/17 0000 Signed Impressions: Service Date/Time: May 07:51 - CONCLUSION: Resolving right parietal and right tentorial subdural hematomas with no evidence of new acute hemorrhage, acute infarct, midline shift or extra-axial bleed. Dez Slaughter MD Objective Remarks GENERAL: This is a 76 year old female, intubated slightly sedated SKIN: Warm and dry. Unstageable sacral decubitus ulcer HEAD: Atraumatic. Normocephalic. EYES: Right pupil around 2 mm and reactive. Left pupil around 3 mm and reactive. No scleral icterus.No injection or drainage. ENT: No nasal bleeding or discharge. Orotracheally intubated NECK: Trachea midline. + JVD. CARDIOVASCULAR: HR controlled, Irreg irreg. S1, S2, without murmur RESPIRATORY: Sparse crackles. No wheezes. Symmetrical excursion. Minimal secretions from ETT. L chest tube with 530 ml in 24 hours GASTROINTESTINAL: Abdomen soft, non-tender, nondistended. Ostomy site in the right lower quadrant viable and pink MUSCULOSKELETAL: Extremities with resolving ecchymoses involving right knee. Multiple abrasions/old bilateral lower extremities NEUROLOGICAL: Opens eyes to voice. Moves 4 limbs. Follows commands x4 today A/P Assessment and Plan Neuro/Psych: TBI 06/14 status post fall, Right parafalcine subdural hematoma with a small cortical hemorrhage. Seizure Depression CT brain 05/29 revealed small parafalcine posterior SDH involving the right tentorium, small cortical hemorrhage right parietal field. Repeat CT brain 06/08 revealed evolving subdural hematoma with no new acute bleeding. Per Dr. Peterson- No intervention CT brain 06/11 R sided subdural hemorrhage resolving EEG 06/11 severe encephalopathy. Prolactin 7.1 Normal. Patient received 1 mg of lorazepam with minimal change in symptomatology Loaded with levetiracetam 1 g followed by 500 mg IV twice a day Seizure precautions. Currently holding duloxetine 30 mg by mouth daily for depression Keep head of bed at 30 Precedex to facilitate weaning trials 06/18. DCd all other continuos sedation CV: Atrial fibrillation with RVR, now rate controlled NSTEMI Hypertension Dyslipidemia Chronic systolic heart failure Echo 06/14: Normal LV size, wall thickness. LV systolic function is moderately reduced with an estimated EF 40-45%. The EV systolic function is moderately decreased. A moderate left sided pleural effusion is noted. Cardizem 60 po q6h. Digoxin level 1.4 on 06/14 ASA 81 daily. 06/19. Cleared by Dr. Peterson Home medications include Lopressor 50 mg twice a day, diltiazem 180 mg daily and digoxin 0.125 mg daily Evaluated by Dr. Matos last admission. Evaluation for possible ablation/ watchman program in near future per his notes Furosemide 40 mg IV daily, with additional 20 mg IV now Resp: Acute respiratory failure Recent right lower lobe pneumonia Left pleural effusion History of JACOB? PRVC Maintain saturations greater than equal to 92%. 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 Wetzel Patient is tolerating tube feeds, having ostomy output. Hold for possible extubation Pantoprazole for GI prophylaxis Docusate sodium/senna 1 tablet twice a day for bowel regimen : Jenkins catheter if indicated for accurate I's and O's in a critically ill patient IV Lasix as above Endo: Sliding-scale insulin with Accu-Cheks to maintain euglycemia/low regimen with Novulog Renal: Monitor urine output Accurate I's and O's Heme: History of chronic warfarin use History of right femoral artery thrombus -embolectomy Dr. Mo at [facility] CHADs VASc score 2. Will require anticoagulation at some point in the future due to intracranial hemorrhage on hold CBC/coags all pending Warfarin was reversed with prothrombin complex concentrate with 35 units per kilogram IV with 10 mg vitamin K ID: Monitor for infection Urine culture elaine +. changed Jenkins catheter MSK: Sacral decubitus ulcer stage IV Wound care evaluate and treat PT/OT evaluate and treat FEN: Replace electrolytes as clinically indicated Access - Utilize peripheral IV. - Right SCV CVL placed 06/13 Prophylaxis - GI - pantoprazole - DVT - Lovenox 40 mg sq and ASA daily 06/19/17 Overall impression: New seizure. NSTEMI, Atrial fibrillation with RVR. Biventricular dysfunction. Cardiology has followed ([place]). Now hypoxemia, possible aspiration pneumonia. Required intubation. Discussed in great detail with a family member at the bedside by Dr. Marina previously. This is most likely an aspiration pneumonitis made worse by CHF. Tolerating CPAP better today. On Precedex to facilitate weaning trials Critical care 35 mins Carolina Pina MD Jun 20, 2017 09:08
[2017-06-20] MEDS ORDERED: FUROSEMIDE 20 MG/2 ML VIAL IV PUSH ONE (09:30)
[2017-06-20] MEDS: VANCOMYCIN INJ 1,500 MG in SODIUM CHLORID 0.9% 500 ML INJ 500 ML IV SCH (09:39)
[2017-06-20] MEDS ORDERED: PHARMACY ORDERED LAB ONE (09:45)
[2017-06-20] MEDS ORDERED: POTASSIUM CHLOR 20 MEQ PREMIX 100 ML IV ONE (10:00)
--- NOTE | 2017-06-20 11:06 | RADRPT ---
EXAM DATE/TIME: 06/20/2017 09:41 [facility] COMPARISON: CHEST SINGLE AP, June 19, 2017, 9:51. INDICATIONS : Shortness of breath MEDICAL HISTORY : Hypertension. Gastroesophageal reflux disease SURGICAL HISTORY : Colon resection. Cholecystectomy ENCOUNTER: Subsequent ACUITY: 3 weeks PAIN SCORE: Non-responsive. LOCATION: Bilateral chest FINDINGS: Portable AP view of the chest demonstrates a normal-sized cardiac silhouette. Nasogastric tube distal tip extends beyond the GE junction and endotracheal tube distal tip measures 1.5 cm from the love. Smallbore pleural catheter is in the inferior left hemithorax. No pneumothorax is visualized. There is mild bibasilar airspace opacity, stable from the prior study. Right subclavian central line has be en removed. CONCLUSION: 1. No significant change. There is mild bibasilar airspace opacity which may represent atelectasis. 2. Left chest tube remains present and no pneumothorax or significant pleural effusion is identified. 3. Endotracheal tube distal tip measures 1.5 cm from the love. Yovani Melissa MD on June 20, 2017 at 11:03 Board Certified Radiologist. This report was verified electronically.
[2017-06-20] MEDS: ENOXAPARIN SODIUM 40 MG/0.4 ML SYRINGE SQ SCH (11:48)
[2017-06-20 13:19] LABS: TOTAL PROTEIN,PLEURAL FLUID 2.1 GM/DL
[2017-06-20 13:37] LABS: PLEURAL FLUID LYMPHS 61 %
--- NOTE | 2017-06-20 15:52 | EKG ---
Date Performed: 06/19/2017 Time Performed: 11:28:38 PTAGE: 76 years EKG: Atrial fibrillation. Indeterminate axis Possible anterior infarct - age undetermined Inferi or/lateral ST-T changes may be due to myocardial ischemia Compared to previous tracing, ventricular r esponse to the atrial fibrillation is much slower. The T wave changes anterolaterally are much more p rominent Abnormal ECG PREVIOUS TRACING : @ 0629 DOCTOR: Armando Lind Interpretating Date/Time 06/20/2017 15:52:18
[2017-06-21] VITALS (13 sets, daily range): BP systolic 110–142; BP diastolic 56–73; PULSE 88–111; RESP 18–28; TEMP 97.7–98.7; O2SAT 92–100
[2017-06-21] MEDS: RESP: ALBUTEROL 2.5 MG/IPRATROPIUM 0.5 MG NEB (SCH) NEB ×4 (03:12→20:22)
[2017-06-21] MEDS: CHLORHEXIDINE GLUCONATE 2 % 1 PACK (2 CLOTHS) TOP SCH (04:00)
[2017-06-21] MEDS: CEFEPIME INJ 2,000 MG in SODIUM CHLORIDE 0.9% INJ 100 ML IV SCH ×2 (06:05→18:13)
[2017-06-21] MEDS: METOCLOPRAMIDE HCL 10 MG/2 ML VIAL IV PUSH SCH ×3 (06:05→20:47)
[2017-06-21] MEDS: DILTIAZEM HCL 60 MG TAB PO SCH ×3 (06:06→18:13)
[2017-06-21] MEDS: CHLORHEXIDINE 0.12% (ORAL KIT) 15 ML CUP MT SCH ×2 (08:00→19:49)
[2017-06-21] MEDS: PANTOPRAZOLE SODIUM 40 MG VIAL IV PUSH SCH (08:50)
[2017-06-21] MEDS: levETIRAcetam INJ 500 MG in SODIUM CHLORIDE 0.9% INJ 100 ML IV SCH ×2 (08:50→20:46)
[2017-06-21] MEDS: FUROSEMIDE 40 MG/4 ML VIAL IV PUSH SCH ×2 (08:50→20:46)
[2017-06-21] MEDS: DOCUSATE SODIUM 50 MG/SENNA 8.6 MG TAB PO SCH ×2 (08:51→20:46)
[2017-06-21] MEDS: DIGOXIN 0.5 MG/2 ML VIAL IV PUSH SCH (08:51)
[2017-06-21] MEDS: ASPIRIN 81 MG CHEW TAB CHEW SCH (08:51)
[2017-06-21 08:59] LABS: HEMATOCRIT 34.7 % (35.0-46.0); MEAN CELL VOLUME 100.5 FL (80.0-100.0); MEAN CORPUSCULAR HEMOGLOBIN 31.4 PG (27.0-34.0); MEAN CORPUSCULAR HGB CONC 31.3 % (32.0-36.0); PLATELET COUNT 173 TH/MM3 (150-450); RED BLOOD COUNT 3.46 MIL/MM3 (4.00-5.30); RED CELL DISTRIBUTION WIDTH 18.8 % (11.6-17.2); REVIEW FLAG FINAL; WHITE BLOOD COUNT 8.6 TH/MM3 (4.0-11.0)
[2017-06-21] MEDS: ARTIFICIAL TEARS OPTH SOLN 15 ML BTL EACH EYE SCH ×3 (09:00→18:00)
[2017-06-21] MEDS: SODIUM CHLORIDE 0.9% FLUSH 10 ML FLUSH IV FLUSH SCH ×2 (09:00→20:50)
[2017-06-21] MEDS: BENEPROTEIN POWDER 1 PACK G-TUBE SCH ×3 (09:00→18:00)
[2017-06-21 09:10] LABS: POTASSIUM 3.5 MEQ/L (3.5-5.1)
[2017-06-21] MEDS: ACETAMINOPHEN 650 MG/20.3 ML UDC PO PRN (09:19)
[2017-06-21] MEDS: VANCOMYCIN INJ 1,250 MG in SODIUM CHLOR 0.9% 250 ML INJ 250 ML IV SCH (10:20)
--- NOTE | 2017-06-21 11:24 | HHI.CCPN ---
Subjective Remarks/Hospital Course Seizure in a patient with history of increased density at the right tentorium and posterior right interhemispheric fissure consistent with an evolving subdural hemorrhage. 06/12: More alert later in day yesterday. Protects airway well. Required sedation last noc for severe agitation. Family is adamant that we give her sedation. We have tried to explain the risks but they insist. Will avoid benzo - try atypical antipsychotic geodon. 06/13: Still requiring increased O2. Major obstacles are to diurese off effusions and extra water in face of biventricular heart failure, and heart rate control. Update 1230 hours: Patient more SOB. Can't maintain sats on NRBM, struggling. Requires intubation, cultures, abx. Discussed wit the family at the beside. 06/14: Required intubation 06/13. Early culture sputum is benign. CXR still look like heart failure but RML appears to have pneumonitis, probably aspiration during seizure two days ago. BNP > 800. EF 45% 06/15: Tolerated CPAP >1 hour today then became tachypneic. CXR with small to moderate pleural effusion. UO 1.35 L in 24 hours. Approximately 5Kg wt gain since admission. BNP 1042. 06/16: Remains sedated, orally intubated on mechanical ventilation. Had left sided pigtail catheter placed on 06/15 with drainage of about 1.2 L of pleural fluid. 06/17: Remains sedated, orally intubated on mechanical ventilation. Failing C Pap trials. 06/18: No acute events overnight. Gets agitated on sedation hold. Start Precedex to facilitate ventilator weaning. L chest tube draining 270 ml in 24 hours 06/19: Remains intubated sedated with Precedex 0.4 g per KG per hour. Follows commands in bilateral upper extremities. Chest x-ray pending. Chest tube output 350 mL in 24 hours, urine output 1.5 L. 06/20: Remains intubated on Precedex. Wakes up follows commands. Urine output approximately 2 L. 530 ml chest tube output. Additional 20 mg of Lasix given 06/21: Patient more awake oriented to person and place. Urine output 3.2 L in 24 hours. Chest tube output 830 mL in 24 hours. Increase Lasix to 40 mg IV q12 Objective Vital Signs Date Time Temp Pulse Resp B/P (MAP) Pulse Ox O2 Delivery O2 Flow Rate FiO2 06/21/17 10:00 111 06/21/17 08:00 98.0 27 142/73 (96) 95 06/21/17 07:48 Nasal Cannula 4.00 06/20/17 08:00 35 Intake and Output 06/21/17 06/21/17 06/22/17 08:00 16:00 00:00 Intake Total 630 ml Output Total 735 ml Balance -105 ml Result Diagram: 06/21/17 0806 06/21/17 0806 Imaging Last Impressions Chest X-Ray 06/16/17 0600 Signed Impressions: Service Date/Time: Friday, June 16, 2017 06:01 - CONCLUSION: Slight worsening of the bibasilar pulmonary infiltrates. Raad Meraz Jr., MD Head CT 06/11/17 0000 Signed Impressions: Service Date/Time: May 07:51 - CONCLUSION: Resolving right parietal and right tentorial subdural hematomas with no evidence of new acute hemorrhage, acute infarct, midline shift or extra-axial bleed. Dez Slaughter MD Objective Remarks GENERAL: This is a 76 year old female, lying in bed SKIN: Warm and dry. Unstageable sacral decubitus ulcer HEAD: Atraumatic. Normocephalic. EYES: Pupils reactive. No scleral icterus.No injection or drainage. ENT: No nasal bleeding or discharge. Orotracheally intubated NECK: Trachea midline. + JVD. CARDIOVASCULAR: HR controlled, Irreg irreg. S1, S2, without murmur RESPIRATORY: Sparse crackles. No wheezes. Symmetrical excursion. Minimal secretions from ETT. L chest tube with 860 ml in 24 hours GASTROINTESTINAL: Abdomen soft, non-tender, nondistended. Ostomy site in the right lower quadrant viable and pink MUSCULOSKELETAL: Extremities with resolving ecchymoses involving right knee. Multiple abrasions/old bilateral lower extremities NEUROLOGICAL: Opens eyes to voice, oriented x3. Moves 4 limbs. Follows commands x4 A/P Assessment and Plan Neuro/Psych: TBI 06/14 status post fall, Right parafalcine subdural hematoma with a small cortical hemorrhage. Seizure Depression CT brain 05/29 revealed small parafalcine posterior SDH involving the right tentorium, small cortical hemorrhage right parietal field. Repeat CT brain 06/08 revealed evolving subdural hematoma with no new acute bleeding. Per Dr. Peterson- No intervention. CT brain 06/11 R sided subdural hemorrhage resolving EEG 06/11 severe encephalopathy. Prolactin 7.1 Normal. Patient received 1 mg of lorazepam with minimal change in symptomatology Loaded with levetiracetam 1 g followed by 500 mg IV twice a day Seizure precautions. Currently holding duloxetine 30 mg by mouth daily for depression. Keep head of bed at 30 CV: Atrial fibrillation with RVR, now rate controlled NSTEMI Hypertension Dyslipidemia Chronic systolic heart failure Echo 06/14: Normal LV size, wall thickness. LV systolic function is moderately reduced with an estimated EF 40-45%. The EV systolic function is moderately decreased. A moderate left sided pleural effusion is noted. Cardizem 60 po q6h. Digoxin level 1.4 on 06/14. ASA 81 daily. 06/19. Cleared by Dr. Peterson Home medications include Lopressor 50 mg twice a day, diltiazem 180 mg daily and digoxin 0.125 mg daily Evaluated by Dr. Matos last admission. Evaluation for possible ablation/ watchman program in near future per his notes Furosemide 40 mg IV daily, increase to 40 mg IV q12 06/21 Resp: Acute respiratory failure Recent right lower lobe pneumonia Left pleural effusion History of JACOB? Maintain saturations greater than equal to 92%. Reintubated 06/13/17 Extubated 06/20 tolerating well. PRN albuterol nebulizers every 2 hours for Dyspnea s/p pigtail chest tube with 1.2 L initial output, over last 24 hours 860 ml output Repeat fluid studies- slightly hemorrhagic effusion. Cytology negative for malignancy 06/16. 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 Wetzel Patient is tolerating tube feeds, having ostomy output. Speech following Pantoprazole for GI prophylaxis Docusate sodium/senna 1 tablet twice a day for bowel regimen : Jenkins catheter indicated for accurate I's and O's in a critically ill patient, who is receiving IV Lasix now with increased dose Endo: Sliding-scale insulin with Accu-Cheks to maintain euglycemia/low regimen with Novulog Renal: Monitor urine output Accurate I's and O's Heme: History of chronic warfarin use History of right femoral artery thrombus -embolectomy Dr. Mo at [facility] CHADs VASc score 2. Will require anticoagulation at some point in the future, on hold due to intracranial hemorrhage CBC/coags as needed. Warfarin was reversed with prothrombin complex concentrate with 35 units per kilogram IV with 10 mg vitamin K ID: Monitor for infection Urine culture elaine +. changed Jenkins catheter MSK: Sacral decubitus ulcer stage IV Wound care evaluate and treat PT/OT evaluate and treat, OOB up to chair today FEN: Replace electrolytes as clinically indicated Access - Utilize peripheral IV. - Right SCV CVL placed 06/13 Prophylaxis - GI - pantoprazole - DVT - Lovenox 40 mg sq and ASA daily 06/19/17 Overall impression: New seizure. NSTEMI, Atrial fibrillation with RVR. Biventricular dysfunction. Cardiology has followed ([place]). Now with aspiration pneumonia. Discussed in great detail with a family member at the bedside by Dr. Marina previously. This is most likely an aspiration pneumonitis made worse by CHF. Now persistent hemorrhagic effusion concerning though cytology negative. Pulmonary consulted Level 3 Carolina Pina MD Jun 21, 2017 11:24
[2017-06-21] MEDS: ENOXAPARIN SODIUM 40 MG/0.4 ML SYRINGE SQ SCH (12:57)
[2017-06-22] VITALS (11 sets, daily range): BP systolic 114–129; BP diastolic 56–60; PULSE 84–102; RESP 17–23; TEMP 97.3–99; O2SAT 98–100
[2017-06-22] MEDS: DILTIAZEM HCL 60 MG TAB PO SCH ×4 (00:15→17:39)
[2017-06-22] MEDS: RESP: ALBUTEROL 2.5 MG/IPRATROPIUM 0.5 MG NEB (SCH) NEB ×3 (03:39→20:34)
[2017-06-22] MEDS: VANCOMYCIN INJ 1,250 MG in SODIUM CHLOR 0.9% 250 ML INJ 250 ML IV SCH ×2 (03:49→22:52)
[2017-06-22] MEDS: CHLORHEXIDINE GLUCONATE 2 % 1 PACK (2 CLOTHS) TOP SCH (03:50)
--- NOTE | 2017-06-22 04:42 | RADRPT ---
EXAM DATE/TIME: 06/22/2017 03:14 [facility] COMPARISON: CHEST SINGLE AP, June 20, 2017, 9:41. INDICATIONS : Short of breath. MEDICAL HISTORY : Hypertension. Gastroesophageal reflux disease SURGICAL HISTORY : Colon resection. Cholecystectomy. ENCOUNTER: Subsequent ACUITY: 1 month PAIN SCORE: 0/10 LOCATION: Bilateral chest FINDINGS: Previous endotracheal tube removed. Nasogastric tube enters stomach. Basilar airspace disease with sm all effusions similar to June 20. CONCLUSION: 1. Removal of endotracheal tube. Basilar airspace disease and small effusion similar to prior exam. N o pneumothorax. Jassi Hargrove MD on June 22, 2017 at 4:39 Board Certified Radiologist. This report was verified electronically.
[2017-06-22] MEDS: CEFEPIME INJ 2,000 MG in SODIUM CHLORIDE 0.9% INJ 100 ML IV SCH ×2 (05:21→17:37)
[2017-06-22] MEDS: METOCLOPRAMIDE HCL 10 MG/2 ML VIAL IV PUSH SCH ×3 (05:22→22:02)
[2017-06-22] MEDS: CHLORHEXIDINE 0.12% (ORAL KIT) 15 ML CUP MT SCH ×2 (08:00→20:00)
[2017-06-22] MEDS: ASPIRIN 81 MG CHEW TAB CHEW SCH (08:32)
[2017-06-22] MEDS: DIGOXIN 0.5 MG/2 ML VIAL IV PUSH SCH (08:32)
[2017-06-22] MEDS: DOCUSATE SODIUM 50 MG/SENNA 8.6 MG TAB PO SCH ×2 (08:33→20:35)
[2017-06-22] MEDS: FUROSEMIDE 40 MG/4 ML VIAL IV PUSH SCH ×2 (08:33→20:49)
[2017-06-22] MEDS: ARTIFICIAL TEARS OPTH SOLN 15 ML BTL EACH EYE SCH ×3 (08:33→17:29)
[2017-06-22] MEDS: BENEPROTEIN POWDER 1 PACK G-TUBE SCH ×3 (08:33→17:29)
[2017-06-22] MEDS: levETIRAcetam INJ 500 MG in SODIUM CHLORIDE 0.9% INJ 100 ML IV SCH ×2 (08:33→20:49)
[2017-06-22] MEDS: PANTOPRAZOLE SODIUM 40 MG VIAL IV PUSH SCH (08:33)
[2017-06-22] MEDS: SODIUM CHLORIDE 0.9% FLUSH 10 ML FLUSH IV FLUSH SCH ×2 (08:34→20:35)
--- NOTE | 2017-06-22 09:07 | PD.TRANSFR ---
Transfer Summary Admission Date Jun 11, 2017 at 06:07 Admitting Diagnosis Seizure in a patient with history of increased density at the right tentorium and posterior right interhemispheric fissure consistent with an evolving subdural hemorrhage Diagnoses: (1) Acute hypoxemic respiratory failure Diagnosis: Principal (2) Seizure Diagnosis: Principal (3) Atrial fibrillation with RVR Diagnosis: Principal (4) Hematoma of iliopsoas muscle Diagnosis: Principal (5) Closed traumatic brain injury Diagnosis: Principal (6) Hyperlipidemia Diagnosis: Principal (7) Subdural hematoma Diagnosis: Principal (8) Recurrent left pleural effusion Diagnosis: Principal (9) Depression Diagnosis: Secondary (10) HTN (hypertension) Diagnosis: Secondary (11) Morbid obesity with BMI of 40.0-44.9, adult Diagnosis: Secondary Transfer Summary/Subjective This is a 76-year-old female. Date of transfer from [facility] 06/11/2017. Past medical history includes atrial fibrillation on chronic anticoagulation with warfarin, hypertension, history of a colovesicular fistula, depression. Patient was originally admitted to [facility] 05/29 status post fall to her head which revealed a subdural hematoma involving the right tentorium with small critical hemorrhage on the right parietal field. Patient was evaluated by Dr. Peterson with no intervention planned. He is originally treated with levetiracetam 500 mg IV twice daily for 7 days. She is also on duloxetine 30 mg daily for depression. Patient was also seen in consultation by Dr. Matos for atrial fibrillation with RVR. She is initially treated with diltiazem drip with a phenylephrine drip for hypotension. Phenylephrine drip was discontinued after 1 day. Patient currently not a candidate for any quickly she. Possibly can affirm watchman program in 6-8 weeks. She is also received treatment to the right lower lobe pneumonia and complete antibiotic therapy At 540, I was notified by [facility] RN to go to [facility] on a floor because "patient need to be intubated." I walked if there are arrived at 5:45 AM. During that time, the patient was in transit while being manually bag to room 1313. I arrived in [facility] 8 minutes later after walking across the hospital to evaluate the patient. Upon arrival, patient was receiving Ambu bag resuscitation. Patient is now responsive to voice and noxious stimuli however has a right-sided gaze. She is withdrawing to pain right upper and left upper greater than bilateral lower extremities. She received 1 mg of lorazepam around 06. Orders for stat CT, loading with levetiracetam 1000 mg all ordered. All laboratories currently ordered as well and pending 06/12: More alert later in day yesterday. Protects airway well. Required sedation last noc for severe agitation. Family is adamant that we give her sedation. We have tried to explain the risks but they insist. Will avoid benzo - try atypical antipsychotic Geodon. 06/13: Still requiring increased O2. Major obstacles are to diurese off effusions and extra water in face of biventricular heart failure, and heart rate control. Update 1230 hours: Patient more SOB. Can't maintain sats on NRBM, struggling. Requires intubation, cultures, abx. Discussed wit the family at the beside. 06/14: Required intubation 06/13. Early culture sputum is benign. CXR still look like heart failure but RML appears to have pneumonitis, probably aspiration during seizure two days ago. BNP > 800. EF 45% 06/15: Tolerated CPAP >1 hour today then became tachypneic. CXR with small to moderate pleural effusion. UO 1.35 L in 24 hours. Approximately 5Kg wt gain since admission. BNP 1042. 06/16: Remains sedated, orally intubated on mechanical ventilation. Had left sided pigtail catheter placed on 06/15 with drainage of about 1.2 L of pleural fluid. 06/17: Remains sedated, orally intubated on mechanical ventilation. Failing C Pap trials. 06/18: No acute events overnight. Gets agitated on sedation hold. Start Precedex to facilitate ventilator weaning. L chest tube draining 270 ml in 24 hours 06/19: Remains intubated sedated with Precedex 0.4 g per KG per hour. Follows commands in bilateral upper extremities. Chest x-ray pending. Chest tube output 350 mL in 24 hours, urine output 1.5 L. 06/20: Remains intubated on Precedex. Wakes up follows commands. Urine output approximately 2 L. 530 ml chest tube output. Additional 20 mg of Lasix given 06/21: Extubated 06/20/17, tolerating well. Patient more awake oriented to person and place. Urine output 3.2 L in 24 hours. Chest tube output 830 mL in 24 hours. Increase Lasix to 40 mg IV q12 06/22/17: Breathing comfortably remains oriented to person and place, somnolent. Urine output 2.6 L, chest tube output more than 1 L in 24 hours Objective Vital Signs Date Time Temp Pulse Resp B/P (MAP) Pulse Ox O2 Delivery O2 Flow Rate FiO2 06/22/17 04:00 98.6 93 19 114/60 (78) 100 06/21/17 20:24 Nasal Cannula 4.00 06/20/17 08:00 35 Intake and Output 06/22/17 06/22/17 06/22/17 07:59 15:59 23:59 Intake Total 1090 ml Output Total 1840 ml Balance -750 ml Result Diagram: 06/21/17 0806 06/22/17 0415 Imaging Last Impressions Chest X-Ray 06/16/17 0600 Signed Impressions: Service Date/Time: Friday, June 16, 2017 06:01 - CONCLUSION: Slight worsening of the bibasilar pulmonary infiltrates. Raad Meraz Jr., MD Head CT 06/11/17 0000 Signed Impressions: Service Date/Time: May 07:51 - CONCLUSION: Resolving right parietal and right tentorial subdural hematomas with no evidence of new acute hemorrhage, acute infarct, midline shift or extra-axial bleed. Dez Slaughter MD Objective Remarks GENERAL: This is a 76 year old female, lying in bed SKIN: Warm and dry. Unstageable sacral decubitus ulcer HEAD: Atraumatic. Normocephalic. EYES: Pupils reactive. No scleral icterus.No injection or drainage. ENT: No nasal bleeding or discharge. NECK: Trachea midline. + JVD. CARDIOVASCULAR: HR controlled, Irreg irreg. S1, S2, without murmur RESPIRATORY: Sparse crackles. No wheezes. Symmetrical excursion. Minimal secretions from ETT. L chest tube with 1060 ml in 24 hours GASTROINTESTINAL: Abdomen soft, non-tender, nondistended. Ostomy site in the right lower quadrant viable and pink MUSCULOSKELETAL: Extremities with resolving ecchymoses involving right knee. Multiple abrasions/old bilateral lower extremities NEUROLOGICAL: Opens eyes to voice, oriented x3. Moves 4 limbs. Follows commands x4 A/P Assessment and Plan Neuro/Psych: TBI 06/14 status post fall, Right parafalcine subdural hematoma with a small cortical hemorrhage. Seizure Metabolic encephalopathy-resolving Depression CT brain 05/29 revealed small parafalcine posterior SDH involving the right tentorium, small cortical hemorrhage right parietal field. Repeat CT brain 06/08 revealed evolving SDH with no new acute bleeding. Per Dr. Peterson- No intervention. CT brain 06/11 R sided subdural hemorrhage resolving EEG 06/11 severe encephalopathy. Prolactin 7.1 Normal. Patient received 1 mg of lorazepam with minimal change in symptomatology Loaded with levetiracetam 1 g followed by 500 mg IV twice a day Seizure precautions. Currently holding duloxetine 30 mg by mouth daily for depression. Keep head of bed at 30 CV: Atrial fibrillation with RVR, now rate controlled NSTEMI Chronic systolic heart failure Hypertension Dyslipidemia Echo 06/14: Normal LV size, wall thickness. LV systolic function is moderately reduced with an estimated EF 40-45%. Cardizem 60 po q6h. Digoxin level 1.4 on 06/14. ASA 81 daily. 06/19. Cleared by Dr. Peterson Home medications include Lopressor 50 mg twice a day, diltiazem 180 mg daily and digoxin 0.125 mg daily Evaluated by Dr. Matos last admission. Evaluation for possible ablation/ watchman program in near future per his notes Furosemide 40 mg IV q12 Resp: Acute respiratory failure Recent right lower lobe pneumonia Left pleural effusion, recurrent History of JACOB? Maintain saturations greater than equal to 92%. Reintubated 06/13/17. Extubated tolerating well. PRN albuterol nebulizers every 2 hours for Dyspnea s/p pigtail chest tube with 1.2 L initial output, over last 24 hours 1060 ml output Repeat fluid studies- slightly hemorrhagic effusion. Cytology negative for malignancy 06/16. Consulted pulmonology for recurrent high-output pleural effusion. ? 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 Wetzel Patient is tolerating tube feeds, having ostomy output. Speech following Pantoprazole for GI prophylaxis Docusate sodium/senna 1 tablet twice a day for bowel regimen Endo: Sliding-scale insulin with Accu-Cheks to maintain euglycemia/low regimen with Novulog Renal: Jenkins catheter indicated for accurate I's and O's in a critically ill patient, who is receiving IV Lasix Heme: History of chronic warfarin use History of right femoral artery thrombus -embolectomy Dr. Mo at [facility] CHADs VASc score 2. Will require anticoagulation at some point in the future, on hold due to intracranial hemorrhage CBC/coags as needed. Warfarin was reversed with prothrombin complex concentrate with 35 units per kilogram IV with 10 mg vitamin K ID: Monitor for infection Urine culture elaine +. changed Jenkins catheter MSK: Sacral decubitus ulcer stage IV Wound care evaluate and treat PT/OT evaluate and treat, OOB up to chair daily FEN: Replace electrolytes as clinically indicated Access - Utilize peripheral IV. - Right SCV CVL placed 06/13-DCd Prophylaxis - GI - pantoprazole - DVT - Lovenox 40 mg sq and ASA daily 06/19/17 Overall impression: New seizure. NSTEMI, Atrial fibrillation with RVR. Biventricular dysfunction. Cardiology has followed ([place]). Now with aspiration pneumonia. Discussed in great detail with a family member at the bedside by Dr. Marina previously. This is most likely an aspiration pneumonitis made worse by CHF. Now persistent hemorrhagic effusion. Pulmonary consulted Level 2 Consult [facility] to assume care in am Carolina Pina MD Jun 22, 2017 09:07
[2017-06-22] MEDS: ACETAMINOPHEN 650 MG/20.3 ML UDC PO PRN (09:42)
[2017-06-22] MEDS: ENOXAPARIN SODIUM 40 MG/0.4 ML SYRINGE SQ SCH (12:32)
--- NOTE | 2017-06-22 14:15 | HHI.PR ---
Subjective Remarks alert no SOB Objective Vital Signs Date Time Temp Pulse Resp B/P (MAP) Pulse Ox O2 Delivery O2 Flow Rate FiO2 06/22/17 12:00 95 06/22/17 12:00 99.0 102 23 121/56 (77) 100 06/22/17 10:00 93 06/22/17 08:00 98.5 87 20 122/57 (78) 98 06/22/17 08:00 90 06/22/17 04:00 98.6 93 19 114/60 (78) 100 06/22/17 00:00 98.6 100 19 126/59 (81) 100 06/21/17 20:24 99 Nasal Cannula 4.00 06/21/17 20:00 98.7 92 18 130/63 (85) 100 06/21/17 18:00 104 06/21/17 16:00 98 06/21/17 16:00 98.0 94 23 135/63 (87) 95 I/O 06/21/17 06/21/17 06/21/17 06/22/17 06/22/17 06/22/17 07:00 15:00 23:00 07:00 15:00 23:00 Intake Total 630 ml 561 ml 554 ml 1090 ml Output Total 735 ml 1890 ml 1840 ml Balance -105 ml 561 ml -1336 ml -750 ml IV Total 200 ml 561 ml 590 ml Tube Feeding 430 ml 494 ml 300 ml Other 60 ml 200 ml Output Urine Total 475 ml 1250 ml 1400 ml Stool Total 0 ml 20 ml Chest Tube Drainage Total 260 ml 640 ml 420 ml Result Diagram: 06/21/17 0806 06/22/17 0415 Objective Remarks GENERAL: SKIN: Warm and dry. HEAD: Atraumatic. Normocephalic. EYES: Pupils equal and round. No scleral icterus. No injection or drainage. ENT: No nasal bleeding or discharge. Mucous membranes pink and moist. NECK: Trachea midline. No JVD. CARDIOVASCULAR: Regular rate and rhythm. RESPIRATORY: No accessory muscle use. Clear to auscultation. Breath sounds equal bilaterally. GASTROINTESTINAL: Abdomen soft, non-tender, nondistended. Hepatic and splenic margins not palpable. MUSCULOSKELETAL: Extremities without clubbing, cyanosis, or edema. No obvious deformities. NEUROLOGICAL: Awake and alert. No obvious cranial nerve deficits. Motor grossly within normal limits. Five out of 5 muscle strength in the arms and legs. Normal speech. PSYCHIATRIC: Appropriate mood and affect; insight and judgment normal. Assessment and Plan Assessment and Plan respiratory failure tramatic IC BLEED AFIB SEIZURE DISORDER PLAN O2 NEEDED PULM TOILET CXRAY ? SMALL EFFUSION , WILL GET CT CHEST Kay Villanueva MD Jun 22, 2017 14:15
--- NOTE | 2017-06-22 16:37 | RADRPT ---
EXAM DATE/TIME: 06/22/2017 16:20 [facility] COMPARISON: CHEST SINGLE AP, June 22, 2017, 3:14. INDICATIONS : Evaluate pleural effusion. RADIATION DOSE: 9.04 CTDIvol (mGy) MEDICAL HISTORY : A-fib, subdural hematoma SURGICAL HISTORY : Cholecystectomy. ENCOUNTER: Initial ACUITY: 1 day PAIN SCALE: 0/10 LOCATION: chest TECHNIQUE: Volumetric scanning of the chest was performed. Using automated exposure control and adjustment of t he mA and/or kV according to patient size, radiation dose was kept as low as reasonably achievable to obtain optimal diagnostic quality images. DICOM format image data is available electronically for r eview and comparison. Follow-up recommendations for detected pulmonary nodules are based at a minimum on nodule size and pa tient risk factors according to Fleischner Society Guidelines. FINDINGS: There is patchy groundglass infiltrate in the upper lobes and dense consolidation in the lower lobes left greater than right. A pigtail catheter is present at the left lung base. There is no significant residual effusion identified on the left. There is trace pleural effusion on the right. Cardiomegaly , coronary artery calcification and aortic calcification noted. NG tube is noted. There is a subcenti meter low density nodule left thyroid lobe. There is adenopathy in the mediastinum, prevascular space , AP window, subcarinal and right paratracheal regions, the largest in the subcarinal region measurin g up to 1.6 cm. Degenerative changes of the spine. CONCLUSION: 1. Scattered areas of parenchymal infiltrate with dense consolidation in the left lower lobe. 2. No appreciable residual effusion on the left. 3. Tiny right pleural effusion. 4. Atherosclerosis. Andre Flores MD on June 22, 2017 at 16:34 Board Certified Radiologist. This report was verified electronically.
--- NOTE | 2017-06-22 17:44 | PD.WCN.NOT ---
Wound Consult Description: Received consult from Doctor Pina for pressure ulcer of sacrum Communicated with: AGUSTÍN BARRON and Doctor Yovani Recommendation: Please cleanse buttock and sacral area gently with soap and water and pat dry. Apply thick layer of Calazime barrier cream over sacral and bilateral buttock areas BID and PRN. OK to not remove all of barrier cream when cleaning patient, may layer barrier cream. DO NOT scrub cream off of patient. Please turn and reposition patient every 2 hours and PRN for comfort. Please obtain [place] [facility] bed from [employer] or if not available please order K4 bed from [employer] Additional Information: Patient seen on Breanna lozano [facility] for evaluation pressure ulcer to sacrum. Positioned patient to L side with the assistance of AGUSTÍN lozano and freelance writer to reveal macerated scar tissue covered with barrier cream. Scar tissue does not appear to be open. Scar tissue is located over sacrum.Per , patient's history, patient had a stage 4 pressure injury, therefore scar tissue is a closed stage 4 pressure injury. AGUSTÍN Cano to apply thick layer of barrier cream over sacral and buttock area.and keep patient turned every 2 hours or PRN for comfort. Wound care will follow patient every 2 weeks until she is discharged Mar[facility] St[facility] Jun 22, 2017 17:44
[2017-06-22] MEDS ORDERED: PHARMACY ORDERED LAB ONE (21:45)
[2017-06-23] VITALS (14 sets, daily range): BP systolic 112–137; BP diastolic 55–61; PULSE 72–95; RESP 16–25; TEMP 98–98.9; O2SAT 94–100
[2017-06-23] MEDS: DILTIAZEM HCL 60 MG TAB PO SCH ×5 (00:39→23:42)
[2017-06-23] MEDS: RESP: ALBUTEROL 2.5 MG/IPRATROPIUM 0.5 MG NEB (SCH) NEB ×2 (03:40→08:33)
[2017-06-23] MEDS: CHLORHEXIDINE GLUCONATE 2 % 1 PACK (2 CLOTHS) TOP SCH (04:00)
[2017-06-23 05:08] LABS: AUTOMATED NEUTROPHIL # 5.3 TH/MM3 (1.8-7.7); BASOPHIL # 0.1 TH/MM3 (0-0.2); BASOPHIL % 0.9 % (0.0-2.0); EOSINOPHIL # 0.5 TH/MM3 (0-0.4); EOSINOPHIL % 6.3 % (0.0-4.0); HEMATOCRIT 34.5 % (35.0-46.0); HEMO FLAGS DIFF FINAL; LYMPH % 14.4 % (9.0-44.0); MEAN CELL VOLUME 97.8 FL (80.0-100.0); MEAN CORPUSCULAR HEMOGLOBIN 30.3 PG (27.0-34.0); MEAN CORPUSCULAR HGB CONC 30.9 % (32.0-36.0); NEUT % 73.4 % (16.0-70.0); PLATELET COUNT 183 TH/MM3 (150-450); RED BLOOD COUNT 3.53 MIL/MM3 (4.00-5.30); RED CELL DISTRIBUTION WIDTH 17.9 % (11.6-17.2); WHITE BLOOD COUNT 7.2 TH/MM3 (4.0-11.0)
[2017-06-23 05:32] LABS: ALT (GPT) 29 U/L (10-53)
[2017-06-23 05:36] LABS: ALKALINE PHOSPHATASE 145 U/L (45-117); ANION GAP 6 MEQ/L (5-15); AST (GOT) 34 U/L (15-37); BICARBONATE 32.2 MEQ/L (21.0-32.0); BLOOD UREA NITROGEN 26 MG/DL (7-18); CHLORIDE 109 MEQ/L (98-107); GLOMERULAR FILTRATION RATE 129 ML/MIN (>89); MAGNESIUM 1.8 MG/DL (1.5-2.5); SODIUM (NA) 147 MEQ/L (136-145); TOTAL BILIRUBIN ADULT 0.9 MG/DL (0.2-1.0)
[2017-06-23 05:39] LABS: POTASSIUM 3.6 MEQ/L (3.5-5.1)
[2017-06-23] MEDS: CEFEPIME INJ 2,000 MG in SODIUM CHLORIDE 0.9% INJ 100 ML IV SCH ×2 (06:00→18:14)
[2017-06-23] MEDS: METOCLOPRAMIDE HCL 10 MG/2 ML VIAL IV PUSH SCH ×3 (06:17→20:19)
--- NOTE | 2017-06-23 06:34 | RADRPT ---
EXAM DATE/TIME: 06/23/2017 05:37 [facility] COMPARISON: CHEST SINGLE AP, June 22, 2017, 3:14. INDICATIONS : Short of breath. MEDICAL HISTORY : A-fib, subdural hematoma. SURGICAL HISTORY : Cholecystectomy. ENCOUNTER: Subsequent ACUITY: 1 week PAIN SCORE: Non-responsive. LOCATION: Bilateral chest FINDINGS: A single view of the chest demonstrates basilar airspace disease and small left effusion similar to S roxann . No pneumothorax. Nasogastric tube enters the stomach. No pneumothorax. CONCLUSION: 1. Basilar airspace disease and small left pleural effusion. Findings similar to June 22. Jassi Hargrove MD on June 23, 2017 at 6:31 Board Certified Radiologist. This report was verified electronically.
[2017-06-23] MEDS: ARTIFICIAL TEARS OPTH SOLN 15 ML BTL EACH EYE SCH ×3 (08:00→18:00)
[2017-06-23] MEDS: CHLORHEXIDINE 0.12% (ORAL KIT) 15 ML CUP MT SCH ×2 (08:00→20:00)
[2017-06-23] MEDS: BENEPROTEIN POWDER 1 PACK G-TUBE SCH ×3 (08:00→18:00)
[2017-06-23] MEDS: SODIUM CHLORIDE 0.9% FLUSH 10 ML FLUSH IV FLUSH SCH ×2 (08:00→20:20)
[2017-06-23] MEDS: PANTOPRAZOLE SODIUM 40 MG VIAL IV PUSH SCH (08:19)
[2017-06-23] MEDS: FUROSEMIDE 40 MG/4 ML VIAL IV PUSH SCH ×2 (08:19→20:19)
[2017-06-23] MEDS: levETIRAcetam INJ 500 MG in SODIUM CHLORIDE 0.9% INJ 100 ML IV SCH ×2 (08:20→20:19)
[2017-06-23] MEDS: ASPIRIN 81 MG CHEW TAB CHEW SCH (08:20)
[2017-06-23] MEDS: DOCUSATE SODIUM 50 MG/SENNA 8.6 MG TAB PO SCH ×2 (08:20→20:19)
[2017-06-23] MEDS: DIGOXIN 0.5 MG/2 ML VIAL IV PUSH SCH (08:21)
--- NOTE | 2017-06-23 09:02 | HHI.PR ---
Subjective Remarks alert no SOB Objective Vital Signs Date Time Temp Pulse Resp B/P (MAP) Pulse Ox O2 Delivery O2 Flow Rate FiO2 06/23/17 08:33 99 Nasal Cannula 2.00 06/23/17 06:00 95 06/23/17 04:00 98.1 87 25 121/57 (78) 100 06/23/17 04:00 92 06/23/17 02:00 84 06/23/17 00:00 84 06/23/17 00:00 98.0 72 16 112/56 (74) 98 06/22/17 22:00 93 06/22/17 20:34 99 Nasal Cannula 3.00 06/22/17 20:00 90 06/22/17 20:00 97.3 86 18 123/60 (81) 100 06/22/17 18:00 92 06/22/17 16:00 87 06/22/17 16:00 98.1 90 17 129/60 (83) 100 06/22/17 14:00 84 06/22/17 12:00 95 06/22/17 12:00 99.0 102 23 121/56 (77) 100 06/22/17 10:00 93 I/O 06/22/17 06/22/17 06/22/17 06/23/17 06/23/17 06/23/17 07:00 15:00 23:00 07:00 15:00 23:00 Intake Total 1090 ml 1027 ml 1378.5 ml Output Total 1840 ml 1310 ml 2850 ml Balance -750 ml -283 ml -1471.5 ml Intake Oral 50 ml 290 ml IV Total 590 ml 310 ml 362.5 ml Tube Feeding 300 ml 417 ml 526 ml Tube Irrigant 250 ml Other 200 ml 200 ml Output Urine Total 1400 ml 1100 ml 2850 ml Stool Total 20 ml 0 ml Chest Tube Drainage Total 420 ml 210 ml Result Diagram: 06/23/1744206/23/17442 Objective Remarks GENERAL: SKIN: Warm and dry. HEAD: Atraumatic. Normocephalic. EYES: Pupils equal and round. No scleral icterus. No injection or drainage. ENT: No nasal bleeding or discharge. Mucous membranes pink and moist. NECK: Trachea midline. No JVD. CARDIOVASCULAR: Regular rate and rhythm. RESPIRATORY: No accessory muscle use. Clear to auscultation. Breath sounds equal bilaterally. GASTROINTESTINAL: Abdomen soft, non-tender, nondistended. Hepatic and splenic margins not palpable. MUSCULOSKELETAL: Extremities without clubbing, cyanosis, or edema. No obvious deformities. NEUROLOGICAL: Awake and alert. No obvious cranial nerve deficits. Motor grossly within normal limits. Five out of 5 muscle strength in the arms and legs. Normal speech. PSYCHIATRIC: Appropriate mood and affect; insight and judgment normal. Assessment and Plan Assessment and Plan respiratory failure tramatic IC BLEED AFIB SEIZURE DISORDER CT CHEST LLL CONSOLIDATION NO EVIDENSE OF ACUTE INFECTION PLAN O2 NEEDED PULM TOILET INCREASE ACTIVITY FU CXRAY FEW DAYS CONSIDER BRONCHOSCOPY Kay Villanueva MD Jun 23, 2017 09:02
[2017-06-23] MEDS: ENOXAPARIN SODIUM 40 MG/0.4 ML SYRINGE SQ SCH (12:24)
[2017-06-23] MEDS: VANCOMYCIN INJ 1,250 MG in SODIUM CHLOR 0.9% 250 ML INJ 250 ML IV SCH (15:53)
--- NOTE | 2017-06-23 16:16 | HHI.PR ---
Subjective Remarks Pt suffered ICH Pt had seizure. Pt suffered respiratory failure requiring mechanical ventilation in the ICU per [facility]. Pt extubated 06/20/17 Objective Vitals Vital Signs Date Time Temp Pulse Resp B/P (MAP) Pulse Ox O2 Delivery O2 Flow Rate FiO2 06/23/17 14:00 90 06/23/17 12:00 92 06/23/17 12:00 98.0 94 18 124/60 (81) 97 06/23/17 10:00 90 06/23/17 08:33 99 Nasal Cannula 2.00 06/23/17 08:00 88 06/23/17 08:00 98.5 88 20 131/60 (83) 100 06/23/17 06:00 95 06/23/17 04:00 98.1 87 25 121/57 (78) 100 06/23/17 04:00 92 06/23/17 02:00 84 06/23/17 00:00 84 06/23/17 00:00 98.0 72 16 112/56 (74) 98 06/22/17 22:00 93 06/22/17 20:34 99 Nasal Cannula 3.00 06/22/17 20:00 90 06/22/17 20:00 97.3 86 18 123/60 (81) 100 06/22/17 18:00 92 Result Diagram: 06/23/1744206/23/173 Imaging Last Impressions Chest X-Ray 06/23/17 0000 Signed Impressions: Service Date/Time: Friday, June 23, 2017 05:37 - CONCLUSION: 1. Basilar airspace disease and small left pleural effusion. Findings similar to June 22. Jassi Hargrove MD Chest CT 06/22/17 0000 Signed Impressions: Service Date/Time: Thursday, June 22, 2017 16:20 - CONCLUSION: 1. Scattered areas of parenchymal infiltrate with dense consolidation in the left lower lobe. 2. No appreciable residual effusion on the left. 3. Tiny right pleural effusion. 4. Atherosclerosis. Andre Flores MD Abdomen X-Ray 06/17/17 0000 Signed Impressions: Service Date/Time: Saturday, June 17, 2017 12:44 - CONCLUSION: NG tube across the GE junction. Vic Romero MD FACR Head CT 06/11/17 0000 Signed Impressions: Service Date/Time: May 07:51 - CONCLUSION: Resolving right parietal and right tentorial subdural hematomas with no evidence of new acute hemorrhage, acute infarct, midline shift or extra-axial bleed. Dez Slaughter MD Objective Remarks GENERAL: This is a well-nourished, well-developed patient, in no apparent distress. CARDIOVASCULAR: Regular rate and rhythm without murmurs, gallops, or rubs. RESPIRATORY: Clear to auscultation. Breath sounds equal bilaterally. No wheezes , rales, or rhonchi. GASTROINTESTINAL: Abdomen soft, non-tender, nondistended. Normal active bowel sounds MUSCULOSKELETAL: Extremities without clubbing, cyanosis, or edema. NEURO: Alert & Oriented x4 to person, place, time, situation. Moves all ext x4 A/P Problem List: (1) Acute hypoxemic respiratory failure ICD Codes: J96.01 - Acute respiratory failure with hypoxia Status: Resolved Plan: - pt tolerating RA - comgmt with Pulm Medicine - underlying pneumonia, possible aspiration with seizure - vancomycin & cefepime - CT chest (06/22) --> consolidation at LLL - supportive care - DVT prophylaxis (2) Hypernatremia ICD Codes: E87.0 - Hyperosmolality and hypernatremia Plan: - 1/2 NS with KCL - repeat BMP in AM (3) Seizure ICD Codes: R56.9 - Unspecified convulsions Plan: - stable - keppra (4) Atrial fibrillation with RVR ICD Codes: I48.91 - Unspecified atrial fibrillation Status: Acute Plan: - stable - cardizem, digoxin (5) Hematoma of iliopsoas muscle ICD Codes: S70.10XA - Contusion of unspecified thigh, initial encounter Status: Acute Plan: - hg stable - continue PT (6) Closed traumatic brain injury ICD Codes: S06.9X9A - Unspecified intracranial injury with loss of consciousness of unspecified duration, initial encounter Status: Acute (7) Subdural hematoma ICD Codes: I62.00 - Nontraumatic subdural hemorrhage, unspecified (8) Recurrent left pleural effusion ICD Codes: J90 - Pleural effusion, not elsewhere classified (9) Depression ICD Codes: F32.9 - Major depressive disorder, single episode, unspecified Status: Chronic Plan: - stable (10) HTN (hypertension) ICD Codes: I10 - Essential (primary) hypertension Status: Chronic Problem Qualifiers (1) Hematoma of iliopsoas muscle: Qualified Codes: S70.10XS - Contusion of unspecified thigh, sequela (2) Closed traumatic brain injury: Qualified Codes: S06.9X0D - Unspecified intracranial injury without loss of consciousness, subsequent encounter (3) Depression: Qualified Codes: F32.9 - Major depressive disorder, single episode, unspecified (4) HTN (hypertension): Qualified Codes: I10 - Essential (primary) hypertension Ivan Michael DO Jun 23, 2017 16:16
[2017-06-23] MEDS: 1/2 NS + KCL 20 MEQ INJ 1,000 ML IV SCH (18:14)
[2017-06-23] MEDS: ACETAMINOPHEN 650 MG/20.3 ML UDC PO PRN (20:20)
[2017-06-24] VITALS (14 sets, daily range): BP systolic 115–126; BP diastolic 53–59; PULSE 80–112; RESP 14–21; TEMP 97.8–98.8; O2SAT 92–98
[2017-06-24] MEDS: CHLORHEXIDINE GLUCONATE 2 % 1 PACK (2 CLOTHS) TOP SCH (04:00)
[2017-06-24] MEDS: 1/2 NS + KCL 20 MEQ INJ 1,000 ML IV SCH (04:54)
[2017-06-24 04:55] LABS: AUTOMATED NEUTROPHIL # 5.7 TH/MM3 (1.8-7.7); BASOPHIL % 0.6 % (0.0-2.0); EOSINOPHIL # 0.4 TH/MM3 (0-0.4); EOSINOPHIL % 5.8 % (0.0-4.0); HEMO FLAGS DIFF FINAL; LYMPH % 15.4 % (9.0-44.0); LYMPHOCYTE # 1.2 TH/MM3 (1.0-4.8); MEAN CELL VOLUME 96.3 FL (80.0-100.0); MEAN CORPUSCULAR HEMOGLOBIN 30.2 PG (27.0-34.0); MEAN CORPUSCULAR HGB CONC 31.4 % (32.0-36.0); NEUT % 73.2 % (16.0-70.0); PLATELET COUNT 210 TH/MM3 (150-450); RED BLOOD COUNT 3.43 MIL/MM3 (4.00-5.30); WHITE BLOOD COUNT 7.8 TH/MM3 (4.0-11.0)
[2017-06-24] MEDS: CEFEPIME INJ 2,000 MG in SODIUM CHLORIDE 0.9% INJ 100 ML IV SCH (04:55)
[2017-06-24] MEDS: DILTIAZEM HCL 60 MG TAB PO SCH ×3 (04:55→17:40)
[2017-06-24] MEDS: METOCLOPRAMIDE HCL 10 MG/2 ML VIAL IV PUSH SCH ×3 (04:55→20:22)
[2017-06-24 05:23] LABS: BICARBONATE 35.8 MEQ/L (21.0-32.0); MAGNESIUM 1.8 MG/DL (1.5-2.5); POTASSIUM 3.2 MEQ/L (3.5-5.1)
[2017-06-24] MEDS: CHLORHEXIDINE 0.12% (ORAL KIT) 15 ML CUP MT SCH ×2 (08:00→20:00)
[2017-06-24] MEDS: ARTIFICIAL TEARS OPTH SOLN 15 ML BTL EACH EYE SCH ×3 (08:05→17:39)
[2017-06-24] MEDS: BENEPROTEIN POWDER 1 PACK G-TUBE SCH ×3 (08:05→17:40)
[2017-06-24] MEDS: SODIUM CHLORIDE 0.9% FLUSH 10 ML FLUSH IV FLUSH SCH ×2 (08:05→20:22)
[2017-06-24] MEDS: ASPIRIN 81 MG CHEW TAB CHEW SCH (08:19)
[2017-06-24] MEDS: levETIRAcetam INJ 500 MG in SODIUM CHLORIDE 0.9% INJ 100 ML IV SCH ×2 (08:20→20:22)
[2017-06-24] MEDS: DOCUSATE SODIUM 50 MG/SENNA 8.6 MG TAB PO SCH ×2 (08:20→20:22)
[2017-06-24] MEDS: PANTOPRAZOLE SODIUM 40 MG VIAL IV PUSH SCH (08:20)
[2017-06-24] MEDS: FUROSEMIDE 40 MG/4 ML VIAL IV PUSH SCH ×2 (08:20→20:22)
[2017-06-24] MEDS: DIGOXIN 0.5 MG/2 ML VIAL IV PUSH SCH (08:20)
--- NOTE | 2017-06-24 08:22 | HHI.PR ---
Subjective Remarks alert no SOB Objective Vital Signs Date Time Temp Pulse Resp B/P (MAP) Pulse Ox O2 Delivery O2 Flow Rate FiO2 06/24/17 08:18 93 Nasal Cannula 3.00 06/24/17 08:00 92 06/24/17 07:00 93 Nasal Cannula 3.00 06/24/17 06:00 82 06/24/17 04:00 80 06/24/17 04:00 98.8 80 18 122/56 (78) 95 06/24/17 02:00 80 06/24/17 00:15 88 Nasal Cannula 3.00 06/24/17 00:00 97.8 92 20 115/53 (73) 93 06/24/17 00:00 92 06/23/17 22:00 94 06/23/17 20:00 94 06/23/17 20:00 98.9 94 21 137/61 (86) 94 06/23/17 20:00 94 Nasal Cannula 2.00 06/23/17 19:53 97 Nasal Cannula 2.50 06/23/17 18:00 89 06/23/17 16:00 81 06/23/17 16:00 98.0 89 20 118/55 (76) 97 06/23/17 14:00 90 06/23/17 12:00 92 06/23/17 12:00 98.0 94 18 124/60 (81) 97 06/23/17 10:00 90 06/23/17 08:33 99 Nasal Cannula 2.00 I/O 06/23/17 06/23/17 06/23/17 06/24/17 06/24/17 06/24/17 07:00 15:00 23:00 07:00 15:00 23:00 Intake Total 1378.5 ml 1173 ml 1340 ml Output Total 2850 ml 2100 ml 1700 ml Balance -1471.5 ml -927 ml -360 ml Intake Oral 290 ml 240 ml 50 ml IV Total 362.5 ml 455 ml 673 ml Tube Feeding 526 ml 478 ml 497 ml Tube Irrigant 120 ml Other 200 ml Output Urine Total 2850 ml 2050 ml 1300 ml Stool Total 50 ml 400 ml Result Diagram: 06/24/17 0425 06/24/17 0425 Objective Remarks GENERAL: SKIN: Warm and dry. HEAD: Atraumatic. Normocephalic. EYES: Pupils equal and round. No scleral icterus. No injection or drainage. ENT: No nasal bleeding or discharge. Mucous membranes pink and moist. NECK: Trachea midline. No JVD. CARDIOVASCULAR: Regular rate and rhythm. RESPIRATORY: No accessory muscle use. Clear to auscultation. Breath sounds equal bilaterally. GASTROINTESTINAL: Abdomen soft, non-tender, nondistended. Hepatic and splenic margins not palpable. MUSCULOSKELETAL: Extremities without clubbing, cyanosis, or edema. No obvious deformities. NEUROLOGICAL: Awake and alert. No obvious cranial nerve deficits. Motor grossly within normal limits. Five out of 5 muscle strength in the arms and legs. Normal speech. PSYCHIATRIC: Appropriate mood and affect; insight and judgment normal. Assessment and Plan Assessment and Plan respiratory failure tramatic IC BLEED AFIB SEIZURE DISORDER CT CHEST LLL CONSOLIDATION NO EVIDENSE OF ACUTE INFECTION PLAN O2 NEEDED PULM TOILET INCREASE ACTIVITY FU CXRAY FEW DAYS CONSIDER BRONCHOSCOPY Kay Villanueva MD Jun 24, 2017 08:22
[2017-06-24] MEDS: VANCOMYCIN INJ 1,250 MG in SODIUM CHLOR 0.9% 250 ML INJ 250 ML IV SCH (09:53)
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
[2017-06-24] MEDS: ENOXAPARIN SODIUM 40 MG/0.4 ML SYRINGE SQ SCH (13:12)
--- NOTE | 2017-06-24 15:56 | HHI.PR ---
Subjective Remarks No new complaints. Objective Vitals Vital Signs Date Time Temp Pulse Resp B/P (MAP) Pulse Ox O2 Delivery O2 Flow Rate FiO2 06/24/17 14:00 87 06/24/17 12:00 98.4 112 19 126/59 (81) 94 06/24/17 12:00 83 06/24/17 10:00 90 06/24/17 08:18 93 Nasal Cannula 3.00 06/24/17 08:00 92 06/24/17 08:00 98.7 81 14 122/58 (79) 95 06/24/17 07:00 93 Nasal Cannula 3.00 06/24/17 06:00 82 06/24/17 04:00 80 06/24/17 04:00 98.8 80 18 122/56 (78) 95 06/24/17 02:00 80 06/24/17 00:15 88 Nasal Cannula 3.00 06/24/17 00:00 97.8 92 20 115/53 (73) 93 06/24/17 00:00 92 06/23/17 22:00 94 06/23/17 20:00 94 06/23/17 20:00 98.9 94 21 137/61 (86) 94 06/23/17 20:00 94 Nasal Cannula 2.00 06/23/17 19:53 97 Nasal Cannula 2.50 06/23/17 18:00 89 06/23/17 16:00 81 06/23/17 16:00 98.0 89 20 118/55 (76) 97 06/24/17 06/24/17 06/25/17 15:00 23:00 07:00 Intake Total 105 ml Balance 105 ml IV Total 105 ml Result Diagram: 06/24/17 0425 06/24/17 0425 Imaging Last Impressions Chest X-Ray 06/23/17 0000 Signed Impressions: Service Date/Time: Friday, June 23, 2017 05:37 - CONCLUSION: 1. Basilar airspace disease and small left pleural effusion. Findings similar to June 22. aJssi Hargrove MD Chest CT 06/22/17 0000 Signed Impressions: Service Date/Time: Thursday, June 22, 2017 16:20 - CONCLUSION: 1. Scattered areas of parenchymal infiltrate with dense consolidation in the left lower lobe. 2. No appreciable residual effusion on the left. 3. Tiny right pleural effusion. 4. Atherosclerosis. Andre Flores MD Abdomen X-Ray 06/17/17 0000 Signed Impressions: Service Date/Time: Saturday, June 17, 2017 12:44 - CONCLUSION: NG tube across the GE junction. Vic Romero MD FACR Head CT 06/11/17 0000 Signed Impressions: Service Date/Time: May 07:51 - CONCLUSION: Resolving right parietal and right tentorial subdural hematomas with no evidence of new acute hemorrhage, acute infarct, midline shift or extra-axial bleed. Dez Slaughter MD Objective Remarks GENERAL: This is a well-nourished, well-developed patient, in no apparent distress. CARDIOVASCULAR: Regular rate and rhythm without murmurs, gallops, or rubs. RESPIRATORY: Clear to auscultation. Breath sounds equal bilaterally. No wheezes , rales, or rhonchi. GASTROINTESTINAL: Abdomen soft, non-tender, nondistended. Normal active bowel sounds MUSCULOSKELETAL: Extremities without clubbing, cyanosis, or edema. NEURO: Alert & Oriented x3, but confused at times. MERRILL A/P Problem List: (1) Acute hypoxemic respiratory failure ICD Codes: J96.01 - Acute respiratory failure with hypoxia Status: Resolved Plan: - pt tolerating RA - comgmt with Pulm Medicine - underlying pneumonia, possible aspiration with seizure - vancomycin (06/13 - 06/24/17) - cefepime (06/13 - 06/24) - no fever - no leukocytosis - CT chest (06/22) --> consolidation at LLL - supportive care - DVT prophylaxis (2) Hypernatremia ICD Codes: E87.0 - Hyperosmolality and hypernatremia Plan: - D5W with KCL - repeat BMP in AM - watch blood sugar readings (3) Seizure ICD Codes: R56.9 - Unspecified convulsions Plan: - stable - keppra (4) Atrial fibrillation with RVR ICD Codes: I48.91 - Unspecified atrial fibrillation Status: Acute Plan: - stable - cardizem, digoxin (5) Hematoma of iliopsoas muscle ICD Codes: S70.10XA - Contusion of unspecified thigh, initial encounter Status: Acute Plan: - hg stable - continue PT (6) Closed traumatic brain injury ICD Codes: S06.9X9A - Unspecified intracranial injury with loss of consciousness of unspecified duration, initial encounter Status: Acute (7) Subdural hematoma ICD Codes: I62.00 - Nontraumatic subdural hemorrhage, unspecified (8) Recurrent left pleural effusion ICD Codes: J90 - Pleural effusion, not elsewhere classified (9) Depression ICD Codes: F32.9 - Major depressive disorder, single episode, unspecified Status: Chronic Plan: - stable (10) HTN (hypertension) ICD Codes: I10 - Essential (primary) hypertension Status: Chronic (11) Dysphagia ICD Codes: R13.10 - Dysphagia, unspecified Status: Acute Plan: - PT following - poor PO intake - receiving TF by NGT - consider PEG if oral intake not increased by Thursday - trial of ensure Problem Qualifiers (1) Hematoma of iliopsoas muscle: Qualified Codes: S70.10XS - Contusion of unspecified thigh, sequela (2) Closed traumatic brain injury: Qualified Codes: S06.9X0D - Unspecified intracranial injury without loss of consciousness, subsequent encounter (3) Depression: Qualified Codes: F32.9 - Major depressive disorder, single episode, unspecified (4) HTN (hypertension): Qualified Codes: I10 - Essential (primary) hypertension (5) Dysphagia: Qualified Codes: R13.10 - Dysphagia, unspecified Ivan Michael DO Jun 24, 2017 15:56
[2017-06-24] MEDS ORDERED: POTASSIUM CHLORIDE INJ 20 MEQ in DEXTROSE 5% IN WATE 1000ML INJ 1,000 ML IV SCH ×2 (16:00)
[2017-06-24] MEDS ORDERED: POTASSIUM CHLORIDE 25 MEQ EFFERVESCENT TAB PO ONE (16:30)
[2017-06-24] MEDS: D5W + KCL 20 MEQ INJ 1,000 ML IV SCH (17:40)
[2017-06-24] MEDS: ACETAMINOPHEN 650 MG/20.3 ML UDC PO PRN (20:25)
[2017-06-24] MEDS: MIRTAZAPINE ODT 30 MG TAB PO SCH (20:43)
[2017-06-25] VITALS (13 sets, daily range): BP systolic 103–143; BP diastolic 53–63; PULSE 73–92; RESP 11–30; TEMP 97.8–99.5; O2SAT 88–100
[2017-06-25] MEDS: DILTIAZEM HCL 60 MG TAB PO SCH ×4 (00:19→17:26)
[2017-06-25] MEDS: CHLORHEXIDINE GLUCONATE 2 % 1 PACK (2 CLOTHS) TOP SCH (04:00)
[2017-06-25] MEDS: METOCLOPRAMIDE HCL 10 MG/2 ML VIAL IV PUSH SCH ×2 (05:02→15:17)
[2017-06-25 05:27] LABS: AUTOMATED NEUTROPHIL # 5.4 TH/MM3 (1.8-7.7); BASOPHIL # 0.1 TH/MM3 (0-0.2); BASOPHIL % 0.7 % (0.0-2.0); EOSINOPHIL # 0.4 TH/MM3 (0-0.4); EOSINOPHIL % 5.5 % (0.0-4.0); HEMATOCRIT 33.9 % (35.0-46.0); HEMO FLAGS DIFF FINAL; LYMPH % 17.4 % (9.0-44.0); LYMPHOCYTE # 1.3 TH/MM3 (1.0-4.8); MEAN CELL VOLUME 96.2 FL (80.0-100.0); MEAN CORPUSCULAR HEMOGLOBIN 30.4 PG (27.0-34.0); MEAN CORPUSCULAR HGB CONC 31.6 % (32.0-36.0); MONO % 6.5 % (0.0-8.0); NEUT % 69.9 % (16.0-70.0); PLATELET COUNT 209 TH/MM3 (150-450); RED BLOOD COUNT 3.52 MIL/MM3 (4.00-5.30); RED CELL DISTRIBUTION WIDTH 17.6 % (11.6-17.2); WHITE BLOOD COUNT 7.7 TH/MM3 (4.0-11.0)
[2017-06-25 05:47] LABS: BICARBONATE 36.8 MEQ/L (21.0-32.0); MAGNESIUM 1.7 MG/DL (1.5-2.5); POTASSIUM 3.4 MEQ/L (3.5-5.1)
[2017-06-25] MEDS: CHLORHEXIDINE 0.12% (ORAL KIT) 15 ML CUP MT SCH ×2 (08:00→20:00)
--- NOTE | 2017-06-25 08:17 | HHI.PR ---
Subjective Remarks alert no SOB ON O2 Objective Vital Signs Date Time Temp Pulse Resp B/P (MAP) Pulse Ox O2 Delivery O2 Flow Rate FiO2 06/25/17 06:00 73 06/25/17 04:00 97.8 86 20 111/53 (72) 88 06/25/17 04:00 86 06/25/17 02:00 85 06/25/17 00:00 92 06/25/17 00:00 98.6 92 18 121/58 (79) 96 06/24/17 22:00 92 06/24/17 21:40 88 Nasal Cannula 4.00 06/24/17 20:00 100 06/24/17 20:00 98.0 100 21 126/56 (79) 98 06/24/17 19:53 92 Nasal Cannula 3.00 06/24/17 19:00 98 Nasal Cannula 3.00 06/24/17 18:00 89 06/24/17 16:00 98.0 90 15 125/58 (80) 94 06/24/17 16:00 90 06/24/17 14:00 87 06/24/17 12:00 98.4 112 19 126/59 (81) 94 06/24/17 12:00 83 06/24/17 10:00 90 06/24/17 08:18 93 Nasal Cannula 3.00 I/O 06/24/17 06/24/17 06/24/17 06/25/17 06/25/17 06/25/17 07:00 15:00 23:00 07:00 15:00 23:00 Intake Total 1340 ml 355 ml 1854 ml 1237 ml Output Total 1700 ml 2550 ml 1850 ml Balance -360 ml 355 ml -696 ml -613 ml Intake Oral 50 ml 480 ml 50 ml IV Total 673 ml 355 ml 837 ml 466 ml Tube Feeding 497 ml 537 ml 571 ml Tube Irrigant 120 ml 150 ml Output Urine Total 1300 ml 2400 ml 1650 ml Stool Total 400 ml 150 ml 200 ml Result Diagram: 06/25/17 04106/25/17418 Objective Remarks GENERAL: SKIN: Warm and dry. HEAD: Atraumatic. Normocephalic. EYES: Pupils equal and round. No scleral icterus. No injection or drainage. ENT: No nasal bleeding or discharge. Mucous membranes pink and moist. NECK: Trachea midline. No JVD. CARDIOVASCULAR: Regular rate and rhythm. RESPIRATORY: No accessory muscle use. Clear to auscultation. Breath sounds equal bilaterally. GASTROINTESTINAL: Abdomen soft, non-tender, nondistended. Hepatic and splenic margins not palpable. MUSCULOSKELETAL: Extremities without clubbing, cyanosis, or edema. No obvious deformities. NEUROLOGICAL: Awake and alert. No obvious cranial nerve deficits. Motor grossly within normal limits. Five out of 5 muscle strength in the arms and legs. Normal speech. PSYCHIATRIC: Appropriate mood and affect; insight and judgment normal. Assessment and Plan Assessment and Plan respiratory failure traumatic IC BLEED AFIB SEIZURE DISORDER CT CHEST LLL CONSOLIDATION NO EVIDENSE OF ACUTE INFECTION PLAN O2 NEEDED PULM TOILET INCREASE ACTIVITY FU CXRAY FEW DAYS CONSIDER BRONCHOSCOPY Kay Villanueva MD Jun 25, 2017 08:17
[2017-06-25] MEDS: ARTIFICIAL TEARS OPTH SOLN 15 ML BTL EACH EYE SCH ×3 (09:00→17:26)
[2017-06-25] MEDS: BENEPROTEIN POWDER 1 PACK G-TUBE SCH ×3 (09:00→17:26)
[2017-06-25] MEDS: levETIRAcetam INJ 500 MG in SODIUM CHLORIDE 0.9% INJ 100 ML IV SCH ×2 (09:34→20:22)
[2017-06-25] MEDS: FUROSEMIDE 40 MG/4 ML VIAL IV PUSH SCH ×2 (09:34→20:23)
[2017-06-25] MEDS: ASPIRIN 81 MG CHEW TAB CHEW SCH (09:35)
[2017-06-25] MEDS: PANTOPRAZOLE SODIUM 40 MG VIAL IV PUSH SCH (09:35)
[2017-06-25] MEDS: DIGOXIN 0.5 MG/2 ML VIAL IV PUSH SCH (09:35)
[2017-06-25] MEDS: SODIUM CHLORIDE 0.9% FLUSH 10 ML FLUSH IV FLUSH SCH ×2 (09:36→20:23)
[2017-06-25] MEDS: DOCUSATE SODIUM 50 MG/SENNA 8.6 MG TAB PO SCH ×2 (09:36→20:24)
[2017-06-25] MEDS: D5W + KCL 20 MEQ INJ 1,000 ML IV SCH (12:01)
[2017-06-25] MEDS: ENOXAPARIN SODIUM 40 MG/0.4 ML SYRINGE SQ SCH (12:27)
--- NOTE | 2017-06-25 15:37 | HHI.HCPN ---
Reason for visit a. To assist with evaluation and management of symptoms including: dysphagia , dyspnea, debility b. To assist medical decision maker(s) with: better understanding of current medical conditions; weighing benefits/burdens of medical treatment options; making medical treatment decisions. . Subjective/Interval History Patient examined in room, dual visit with Sole Chauhan MD, family at bedside. Patient resting comfortably in bed, drowsy, oriented x 3. Patient states again today "my throat hurts", referring to her NGT. Patient endorses she feels tired and just wants to rest. Palliative care was consulted assist with goals of care to provide support/ guidance regarding medical treatment benefit/burden medical treatment options. Family/friend interactions Meeting with patient's daughter Sulma, son Napoleon, granddaughter, and patient' s brother. * Palliative care role, purpose, approach * Additional medical, psychosocial, and spiritual history * Patients general health, functional status, and cognitive changes in the months leading up to the current hospitalization * Patient/family understanding of the current medical problems * Patient/family understanding of prognosis * Patients goals of care as best understood from advance directives and/or conversations and/or values * Current medical treatment options and benefits/burdens of those options * Likely scenarios comparing ongoing aggressive care with a transition to comfort measures only * Questions answered to the best of my ability * Palliative care contact information provided Advance Directives Living Will: Completed, but not made available Objective Vital Signs Date Time Temp Pulse Resp B/P (MAP) Pulse Ox O2 Delivery O2 Flow Rate FiO2 06/25/17 12:00 98.1 90 11 143/63 (89) 100 06/25/17 12:00 90 06/25/17 10:00 84 06/25/17 08:00 98.1 78 16 103/54 (70) 97 06/25/17 08:00 78 06/25/17 07:00 97 Nasal Cannula 4.00 06/25/17 06:00 73 06/25/17 04:00 97.8 86 20 111/53 (72) 88 06/25/17 04:00 86 06/25/17 02:00 85 06/25/17 00:00 92 06/25/17 00:00 98.6 92 18 121/58 (79) 96 06/24/17 22:00 92 06/24/17 21:40 88 Nasal Cannula 4.00 06/24/17 20:00 100 06/24/17 20:00 98.0 100 21 126/56 (79) 98 06/24/17 19:53 92 Nasal Cannula 3.00 06/24/17 19:00 98 Nasal Cannula 3.00 06/24/17 18:00 89 06/24/17 16:00 98.0 90 15 125/58 (80) 94 06/24/17 16:00 90 Intake & Output 06/25/17 06/25/17 07:00 19:00 Intake Total 1237 ml Output Total 1850 ml Balance -613 ml Intake Oral 50 ml IV Total 466 ml Tube Feeding 571 ml Tube Irrigant 150 ml Output Urine Total 1650 ml Stool Total 200 ml . Physical Exam CONSTITUTIONAL/GENERAL: This is a critically ill elderly female patient, in no apparent distress, drowsy. TUBES/LINES/DRAINS: PIV x 2, NGT. SKIN: No jaundice, rashes, or lesions. Ecchymoses on upper extremities. No wounds seen anteriorly. Skin temperature appropriate. Not diaphoretic. EYES: Pupils equal and round and reactive. Extraocular motions intact. No scleral icterus. No injection or drainage. Fundi not examined. ENT: Hearing grossly normal. Nose without bleeding or purulent drainage. CARDIOVASCULAR: Irregular rate and rhythm. Murmur. No JVD. Peripheral pulses symmetric. RESPIRATORY/CHEST: Symmetric, unlabored respirations. Clear to auscultation. Breath sounds equal bilaterally. No wheezes, rales, or rhonchi. GASTROINTESTINAL: Abdomen soft, non-tender, nondistended. No guarding. Bowel sounds present. GENITOURINARY: Without palpable bladder distension. Jenkins catheter in place draining concentrated yellow urine. MUSCULOSKELETAL: Extremities without clubbing, cyanosis, or edema. No mottling or clubbing. BLE +1 edema. NEUROLOGICAL: Awake and alert. Motor and sensory grossly within normal limits. Follows commands. Moves all extremities. PSYCHIATRIC: No obvious anxiety/depression. no apparent hallucinations or other psychotic thought process. . Diagnostic Tests Laboratory Laboratory Tests Test 06/22/17 21:50 06/23/17 04:43 06/24/17 04:25 06/25/17 04:19 Vancomycin Level Trough 18.6 MCG/ML (5.0-10.0) White Blood Count 7.2 TH/MM3 (4.0-11.0) 7.8 TH/MM3 (4.0-11.0) 7.7 TH/MM3 (4.0-11.0) Red Blood Count 3.53 MIL/MM3 (4.00-5.30) 3.43 MIL/MM3 (4.00-5.30) 3.52 MIL/MM3 (4.00-5.30) Hemoglobin 10.7 GM/DL (11.6-15.3) 10.3 GM/DL (11.6-15.3) 10.7 GM/DL (11.6-15.3) Hematocrit 34.5 % (35.0-46.0) 33.0 % (35.0-46.0) 33.9 % (35.0-46.0) Mean Corpuscular Volume 97.8 FL (80.0-100.0) 96.3 FL (80.0-100.0) 96.2 FL (80.0-100.0) Mean Corpuscular Hemoglobin 30.3 PG (27.0-34.0) 30.2 PG (27.0-34.0) 30.4 PG (27.0-34.0) Mean Corpuscular Hemoglobin Concent 30.9 % (32.0-36.0) 31.4 % (32.0-36.0) 31.6 % (32.0-36.0) Red Cell Distribution Width 17.9 % (11.6-17.2) 18.0 % (11.6-17.2) 17.6 % (11.6-17.2) Platelet Count 183 TH/MM3 (150-450) 210 TH/MM3 (150-450) 209 TH/MM3 (150-450) Mean Platelet Volume 9.1 FL (7.0-11.0) 8.5 FL (7.0-11.0) 9.3 FL (7.0-11.0) Neutrophils (%) (Auto) 73.4 % (16.0-70.0) 73.2 % (16.0-70.0) 69.9 % (16.0-70.0) Lymphocytes (%) (Auto) 14.4 % (9.0-44.0) 15.4 % (9.0-44.0) 17.4 % (9.0-44.0) Monocytes (%) (Auto) 5.0 % (0.0-8.0) 5.0 % (0.0-8.0) 6.5 % (0.0-8.0) Eosinophils (%) (Auto) 6.3 % (0.0-4.0) 5.8 % (0.0-4.0) 5.5 % (0.0-4.0) Basophils (%) (Auto) 0.9 % (0.0-2.0) 0.6 % (0.0-2.0) 0.7 % (0.0-2.0) Neutrophils # (Auto) 5.3 TH/MM3 (1.8-7.7) 5.7 TH/MM3 (1.8-7.7) 5.4 TH/MM3 (1.8-7.7) Lymphocytes # (Auto) 1.0 TH/MM3 (1.0-4.8) 1.2 TH/MM3 (1.0-4.8) 1.3 TH/MM3 (1.0-4.8) Monocytes # (Auto) 0.4 TH/MM3 (0-0.9) 0.4 TH/MM3 (0-0.9) 0.5 TH/MM3 (0-0.9) Eosinophils # (Auto) 0.5 TH/MM3 (0-0.4) 0.4 TH/MM3 (0-0.4) 0.4 TH/MM3 (0-0.4) Basophils # (Auto) 0.1 TH/MM3 (0-0.2) 0.0 TH/MM3 (0-0.2) 0.1 TH/MM3 (0-0.2) CBC Comment DIFF FINAL DIFF FINAL DIFF FINAL Differential Comment Blood Urea Nitrogen 26 MG/DL (7-18) 25 MG/DL (7-18) 21 MG/DL (7-18) Creatinine 0.47 MG/DL (0.50-1.00) 0.38 MG/DL (0.50-1.00) 0.37 MG/DL (0.50-1.00) Random Glucose 146 MG/DL (74-106) 137 MG/DL (74-106) 121 MG/DL (74-106) Total Protein 6.1 GM/DL (6.4-8.2) Albumin 1.9 GM/DL (3.4-5.0) Calcium Level 9.7 MG/DL (8.5-10.1) 9.0 MG/DL (8.5-10.1) 9.1 MG/DL (8.5-10.1) Magnesium Level 1.8 MG/DL (1.5-2.5) 1.8 MG/DL (1.5-2.5) 1.7 MG/DL (1.5-2.5) Alkaline Phosphatase 145 U/L (45-117) Aspartate Amino Transf (AST/SGOT) 34 U/L (15-37) Alanine Aminotransferase (ALT/SGPT) 29 U/L (10-53) Total Bilirubin 0.9 MG/DL (0.2-1.0) Sodium Level 147 MEQ/L (136-145) 147 MEQ/L (136-145) 142 MEQ/L (136-145) Potassium Level 3.6 MEQ/L (3.5-5.1) 3.2 MEQ/L (3.5-5.1) 3.4 MEQ/L (3.5-5.1) Chloride Level 109 MEQ/L (98-107) 107 MEQ/L (98-107) 100 MEQ/L (98-107) Carbon Dioxide Level 32.2 MEQ/L (21.0-32.0) 35.8 MEQ/L (21.0-32.0) 36.8 MEQ/L (21.0-32.0) Anion Gap 6 MEQ/L (5-15) 4 MEQ/L (5-15) 5 MEQ/L (5-15) Estimat Glomerular Filtration Rate 129 ML/MIN (>89) 165 ML/MIN (>89) 170 ML/MIN (>89) . Result Diagram: 06/25/17 0419 06/25/17 0419 Imaging Last 72 hours Impressions Chest X-Ray 06/23/17 0000 Signed Impressions: Service Date/Time: Friday, June 23, 2017 05:37 - CONCLUSION: 1. Basilar airspace disease and small left pleural effusion. Findings similar to June 22. Jassi Hargrove MD Procedures 06/13/17: Intubated 06/20/17: Extubated . Assessment and Plan Disease Oriented Problem List: (1) Acute hypoxemic respiratory failure (2) Subdural hematoma (3) Atrial fibrillation with RVR (4) Seizure (5) Atrial fibrillation Symptom Scale: (1) Dyspnea (2) Debility (3) Dysphagia Pertinent Non-Medical Issues Psychosocial: Spiritual: Scientology. Legal: none known. Ethical issues impacting care: None known. . Important Contacts Sulma Reza (daughter): [phone] Napoleonradha Padilla (son): [phone] . Prognosis Patient has had multiple hospitalizations over the past thirteen months and has required mechanical ventilatory support three separate times. Due to multiple comorbidities, advanced age, and extreme debilitated state she is at an ongoing risk for complications and setbacks. Code Status: Full Code Plan * Legal decision maker: Patient currently capacitated to make her own decisions at this time but it would beneficial to have shared/supported decision making with her two adult children. Patient's daughter to bring in written advanced directives previously completed by patient. * CODE STATUS: FULL CODE * GOALS: Aggressive. Patient's family's goal is to get her well enough to be discharge to SNF. Palliative care had a long discussion regarding the patient's current clinical clinical status and likely scenarios/trajectories that could transpire. Family stated that the patient's living will details that she would not want to be sustained on artificial life support for an extended period of time if there was no chance of a meaningful recovery and would not want to be bedbound. * SYMPTOM MANAGEMENT: --dysphagia: Secondary to residual insult from subdural hematoma, seizures, intubation. Speech therapy providing ongoing therapy and evaluations. No recommendations at this time. --debility: Patient has had a complicated hospital course following original admission for subdural hematoma, subsequent intubation and bedbound status. PT, OT providing ongoing support. No recommendations at this time. --dyspnea: Secondary to CHF, recurrent pleural effusions, fluid volume overload. Pulmonology following and providing recommendations, patient receiving maximum therapeutic support. No further recommendations at this time. * Palliative care will continue to follow during hospital course as condition evolves, to assist patient/decision maker with understanding of medical conditions, weighing benefits/burdens of treatment options for clarification of goals of treatment. Additionally will assist with any symptoms of palliative concern. Attestation To help prompt me to consider important information that might be impacting today's encounter and assessment, information from prior notes written by myself or my colleagues may have been "brought forward" into today's note. My signature on this note, however, is an attestation that I personally performed the exam, history, and/or decision-making noted today, and, unless otherwise indicated, the interactions with patient, family, and staff as well as the review of records all occurred today. I also attest that the listed assessment and stated plan reflect my best clinical judgment today based on the combination of historical information, prior notes, and today's exam/ interactions. When time spent is documented, it refers only to time spent today by the signer, or if indicated, combined time spent today by collaborating physician/nurse practitioner. Cordelia Walker Jun 25, 2017 15:37
--- NOTE | 2017-06-25 18:08 | HHI.PR ---
Subjective Remarks No new complaints. Objective Vitals Vital Signs Date Time Temp Pulse Resp B/P (MAP) Pulse Ox O2 Delivery O2 Flow Rate FiO2 06/25/17 17:55 97 Nasal Cannula 3.00 06/25/17 12:00 98.1 90 11 143/63 (89) 100 06/25/17 12:00 90 06/25/17 10:00 84 06/25/17 08:00 98.1 78 16 103/54 (70) 97 06/25/17 08:00 78 06/25/17 07:00 97 Nasal Cannula 4.00 06/25/17 06:00 73 06/25/17 04:00 97.8 86 20 111/53 (72) 88 06/25/17 04:00 86 06/25/17 02:00 85 06/25/17 00:00 92 06/25/17 00:00 98.6 92 18 121/58 (79) 96 06/24/17 22:00 92 06/24/17 21:40 88 Nasal Cannula 4.00 06/24/17 20:00 100 06/24/17 20:00 98.0 100 21 126/56 (79) 98 06/24/17 19:53 92 Nasal Cannula 3.00 06/24/17 19:00 98 Nasal Cannula 3.00 Result Diagram: 06/25/179 06/25/17 0419 Imaging Last Impressions Chest X-Ray 06/23/17 0000 Signed Impressions: Service Date/Time: Friday, June 23, 2017 05:37 - CONCLUSION: 1. Basilar airspace disease and small left pleural effusion. Findings similar to June 22. Jassi Hargrove MD Chest CT 06/22/17 0000 Signed Impressions: Service Date/Time: Thursday, June 22, 2017 16:20 - CONCLUSION: 1. Scattered areas of parenchymal infiltrate with dense consolidation in the left lower lobe. 2. No appreciable residual effusion on the left. 3. Tiny right pleural effusion. 4. Atherosclerosis. Andre Flores MD Abdomen X-Ray 06/17/17 0000 Signed Impressions: Service Date/Time: Saturday, June 17, 2017 12:44 - CONCLUSION: NG tube across the GE junction. Vic Romero MD FACR Head CT 06/11/17 0000 Signed Impressions: Service Date/Time: May 07:51 - CONCLUSION: Resolving right parietal and right tentorial subdural hematomas with no evidence of new acute hemorrhage, acute infarct, midline shift or extra-axial bleed. Dez Slaughter MD Objective Remarks GENERAL: This is a well-nourished, well-developed patient, in no apparent distress. CARDIOVASCULAR: Regular rate and rhythm without murmurs, gallops, or rubs. RESPIRATORY: Clear to auscultation. Breath sounds equal bilaterally. No wheezes , rales, or rhonchi. GASTROINTESTINAL: Abdomen soft, non-tender, nondistended. Normal active bowel sounds MUSCULOSKELETAL: Extremities without clubbing, cyanosis, or edema. NEURO: Alert & Oriented x3, but confused at times. MERRILL A/P Problem List: (1) Acute hypoxemic respiratory failure ICD Codes: J96.01 - Acute respiratory failure with hypoxia Status: Resolved Plan: - pt tolerating RA - comgmt with Pulm Medicine - underlying pneumonia, possible aspiration with seizure - vancomycin (06/13 - 06/24/17) - cefepime (06/13 - 06/24) - no fever - no leukocytosis - CT chest (06/22) --> consolidation at LLL - supportive care - DVT prophylaxis (2) Hypernatremia ICD Codes: E87.0 - Hyperosmolality and hypernatremia Plan: - resolved - stop D5W with KCL - repeat BMP in AM (3) Seizure ICD Codes: R56.9 - Unspecified convulsions Plan: - stable - keppra (4) Atrial fibrillation with RVR ICD Codes: I48.91 - Unspecified atrial fibrillation Status: Acute Plan: - stable - cardizem, digoxin (5) Hematoma of iliopsoas muscle ICD Codes: S70.10XA - Contusion of unspecified thigh, initial encounter Status: Acute Plan: - hg stable - continue PT (6) Closed traumatic brain injury ICD Codes: S06.9X9A - Unspecified intracranial injury with loss of consciousness of unspecified duration, initial encounter Status: Acute (7) Subdural hematoma ICD Codes: I62.00 - Nontraumatic subdural hemorrhage, unspecified (8) Recurrent left pleural effusion ICD Codes: J90 - Pleural effusion, not elsewhere classified (9) Depression ICD Codes: F32.9 - Major depressive disorder, single episode, unspecified Status: Chronic Plan: - stable (10) HTN (hypertension) ICD Codes: I10 - Essential (primary) hypertension Status: Chronic (11) Dysphagia ICD Codes: R13.10 - Dysphagia, unspecified Status: Acute Plan: - PT following - poor PO intake - receiving TF by NGT - consider PEG if oral intake not increased by Thursday - trial of ensure Problem Qualifiers (1) Hematoma of iliopsoas muscle: Qualified Codes: S70.10XS - Contusion of unspecified thigh, sequela (2) Closed traumatic brain injury: Qualified Codes: S06.9X0D - Unspecified intracranial injury without loss of consciousness, subsequent encounter (3) Depression: Qualified Codes: F32.9 - Major depressive disorder, single episode, unspecified (4) HTN (hypertension): Qualified Codes: I10 - Essential (primary) hypertension (5) Dysphagia: Qualified Codes: R13.10 - Dysphagia, unspecified Ivan Michael DO Jun 25, 2017 18:08
[2017-06-26] VITALS (9 sets, daily range): BP systolic 95–124; BP diastolic 54–68; PULSE 88–106; RESP 16–18; TEMP 97.4–98.9; O2SAT 91–95
[2017-06-26] MEDS: DILTIAZEM HCL 60 MG TAB PO SCH ×4 (00:30→18:23)
[2017-06-26] MEDS: CHLORHEXIDINE GLUCONATE 2 % 1 PACK (2 CLOTHS) TOP SCH (04:00)
[2017-06-26] MEDS: METOCLOPRAMIDE HCL 10 MG/2 ML VIAL IV PUSH SCH ×3 (06:05→21:07)
[2017-06-26] MEDS: CHLORHEXIDINE 0.12% (ORAL KIT) 15 ML CUP MT SCH ×2 (08:00→20:00)
[2017-06-26 08:02] LABS: BASOPHIL # 0.1 TH/MM3 (0-0.2); BASOPHIL % 0.8 % (0.0-2.0); EOSINOPHIL # 0.4 TH/MM3 (0-0.4); EOSINOPHIL % 5.4 % (0.0-4.0); HEMO FLAGS DIFF FINAL; LYMPH % 17.3 % (9.0-44.0); LYMPHOCYTE # 1.2 TH/MM3 (1.0-4.8); MEAN CELL VOLUME 94.8 FL (80.0-100.0); MEAN CORPUSCULAR HEMOGLOBIN 30.3 PG (27.0-34.0); MONO % 6.1 % (0.0-8.0); NEUT % 70.4 % (16.0-70.0); PLATELET COUNT 233 TH/MM3 (150-450); RED BLOOD COUNT 3.48 MIL/MM3 (4.00-5.30); RED CELL DISTRIBUTION WIDTH 17.9 % (11.6-17.2); WHITE BLOOD COUNT 7.2 TH/MM3 (4.0-11.0)
[2017-06-26] MEDS: ASPIRIN 81 MG CHEW TAB CHEW SCH (08:26)
[2017-06-26] MEDS: FUROSEMIDE 40 MG/4 ML VIAL IV PUSH SCH ×2 (08:27→21:08)
[2017-06-26] MEDS: PANTOPRAZOLE SODIUM 40 MG VIAL IV PUSH SCH (08:27)
[2017-06-26 08:28] LABS: BICARBONATE 38.2 MEQ/L (21.0-32.0); MAGNESIUM 1.8 MG/DL (1.5-2.5); POTASSIUM 3.8 MEQ/L (3.5-5.1)
--- NOTE | 2017-06-26 08:31 | HHI.PR ---
Subjective Remarks EASILY AROUSIBLE no SOB ON O2 Objective Vital Signs Date Time Temp Pulse Resp B/P (MAP) Pulse Ox O2 Delivery O2 Flow Rate FiO2 06/26/17 08:18 97.7 91 18 119/68 (85) 91 06/26/17 04:00 97.9 93 18 122/60 (80) 91 06/26/17 00:00 98.3 106 18 95/59 (71) 94 06/25/17 22:45 Nasal Cannula 3.00 06/25/17 20:00 99.5 84 27 135/63 (87) 96 06/25/17 20:00 84 06/25/17 19:53 100 Nasal Cannula 3.00 06/25/17 19:00 100 Nasal Cannula 3.00 06/25/17 18:00 90 06/25/17 17:55 97 Nasal Cannula 3.00 06/25/17 16:00 90 06/25/17 16:00 99.5 90 30 125/56 (79) 96 06/25/17 14:00 82 06/25/17 12:00 98.1 90 11 143/63 (89) 100 06/25/17 12:00 90 06/25/17 10:00 84 I/O 06/25/17 06/25/17 06/25/17 06/26/17 06/26/17 06/26/17 07:00 15:00 23:00 07:00 15:00 23:00 Intake Total 1237 ml 1711 ml Output Total 1850 ml 2225 ml 650 ml Balance -613 ml -514 ml -650 ml Intake Oral 50 ml 480 ml IV Total 466 ml 531 ml Tube Feeding 571 ml 500 ml Tube Irrigant 150 ml 200 ml Output Urine Total 1650 ml 1925 ml 650 ml Stool Total 200 ml 300 ml Result Diagram: 06/26/17 0711 06/26/17 0711 Objective Remarks GENERAL: SKIN: Warm and dry. HEAD: Atraumatic. Normocephalic. EYES: Pupils equal and round. No scleral icterus. No injection or drainage. ENT: No nasal bleeding or discharge. Mucous membranes pink and moist. NECK: Trachea midline. No JVD. CARDIOVASCULAR: Regular rate and rhythm. RESPIRATORY: No accessory muscle use. Clear to auscultation. Breath sounds equal bilaterally. GASTROINTESTINAL: Abdomen soft, non-tender, nondistended. Hepatic and splenic margins not palpable. MUSCULOSKELETAL: Extremities without clubbing, cyanosis, or edema. No obvious deformities. NEUROLOGICAL: Awake and alert. No obvious cranial nerve deficits. Motor grossly within normal limits. Five out of 5 muscle strength in the arms and legs. Normal speech. PSYCHIATRIC: Appropriate mood and affect; insight and judgment normal. Assessment and Plan Assessment and Plan respiratory failure traumatic IC BLEED AFIB SEIZURE DISORDER CT CHEST LLL CONSOLIDATION NO EVIDENSE OF ACUTE INFECTION PLAN O2 NEEDED PULM TOILET INCREASE ACTIVITY FU CXRAY FEW DAYS Kay Villanueva MD Jun 26, 2017 08:31
[2017-06-26] MEDS: levETIRAcetam INJ 500 MG in SODIUM CHLORIDE 0.9% INJ 100 ML IV SCH ×2 (08:34→21:07)
[2017-06-26] MEDS: SODIUM CHLORIDE 0.9% FLUSH 10 ML FLUSH IV FLUSH SCH ×2 (08:35→21:00)
[2017-06-26] MEDS: DIGOXIN 0.5 MG/2 ML VIAL IV PUSH SCH (08:36)
[2017-06-26] MEDS: BENEPROTEIN POWDER 1 PACK G-TUBE SCH ×3 (08:36→18:00)
[2017-06-26] MEDS: ARTIFICIAL TEARS OPTH SOLN 15 ML BTL EACH EYE SCH ×3 (08:36→18:24)
[2017-06-26] MEDS: DOCUSATE SODIUM 50 MG/SENNA 8.6 MG TAB PO SCH ×2 (08:36→21:08)
[2017-06-26] MEDS: ENOXAPARIN SODIUM 40 MG/0.4 ML SYRINGE SQ SCH (12:43)
--- NOTE | 2017-06-26 15:26 | HHI.HCPN ---
Reason for visit a. To assist with evaluation and management of symptoms including: dysphagia , dyspnea, debility b. To assist medical decision maker(s) with: better understanding of current medical conditions; weighing benefits/burdens of medical treatment options; making medical treatment decisions. . Subjective/Interval History Patient resting comfortably in bed, son at bedside. On 2 L NC, breathing comfortably. Patient's son endorses she ate most of her dinner last night and her appetite is improving. NGT was removed last night. He states she was able to stand at the side of the bed with PT therapy earlier and she is tired after they removed her lopez catheter from being moved back and forth so much to have her linens changed. Palliative care was consulted assist with goals of care to provide support/ guidance regarding medical treatment benefit/burden medical treatment options. Family/friend interactions Bedside discussion with patient's son Napoleon. . Advance Directives Living Will: Completed, but not made available Objective Vital Signs Date Time Temp Pulse Resp B/P (MAP) Pulse Ox O2 Delivery O2 Flow Rate FiO2 06/26/17 12:32 97.4 95 18 123/58 (79) 95 06/26/17 10:16 93 Nasal Cannula 4.00 06/26/17 08:40 93 Nasal Cannula 4.00 06/26/17 08:18 97.7 91 18 119/68 (85) 91 06/26/17 04:00 97.9 93 18 122/60 (80) 91 06/26/17 00:00 98.3 106 18 95/59 (71) 94 06/25/17 22:45 Nasal Cannula 3.00 06/25/17 20:00 99.5 84 27 135/63 (87) 96 06/25/17 20:00 84 06/25/17 19:53 100 Nasal Cannula 3.00 06/25/17 19:00 100 Nasal Cannula 3.00 06/25/17 18:00 90 06/25/17 17:55 97 Nasal Cannula 3.00 06/25/17 16:00 90 06/25/17 16:00 99.5 90 30 125/56 (79) 96 Intake & Output 06/26/17 06/26/17 07:00 19:00 Intake Total 105 ml Output Total 1375 ml Balance -1270 ml IV Total 105 ml Output Urine Total 1375 ml . Physical Exam CONSTITUTIONAL/GENERAL: This is an ill elderly female patient, in no apparent distress, drowsy. TUBES/LINES/DRAINS: PIV x 2 SKIN: No jaundice, rashes, or lesions. Ecchymoses on upper extremities. No wounds seen anteriorly. Skin temperature appropriate. Not diaphoretic. CARDIOVASCULAR: Irregular rate and rhythm. Murmur. No JVD. Peripheral pulses symmetric. RESPIRATORY/CHEST: Symmetric, unlabored respirations. Clear to auscultation. Breath sounds equal bilaterally. No wheezes, rales, or rhonchi. GASTROINTESTINAL: Abdomen soft, non-tender, nondistended. No guarding. Bowel sounds present. GENITOURINARY: Without palpable bladder distension. Lopez catheter in place draining concentrated yellow urine. MUSCULOSKELETAL: Extremities without clubbing, cyanosis, or edema. No mottling or clubbing. BLE +1 edema. NEUROLOGICAL:Drowsy. Motor and sensory grossly within normal limits. Follows commands. Moves all extremities. PSYCHIATRIC: No obvious anxiety/depression. no apparent hallucinations or other psychotic thought process. . Diagnostic Tests Laboratory Laboratory Tests Test 06/24/17 04:25 06/25/17 04:19 06/26/17 07:11 White Blood Count 7.8 TH/MM3 (4.0-11.0) 7.7 TH/MM3 (4.0-11.0) 7.2 TH/MM3 (4.0-11.0) Red Blood Count 3.43 MIL/MM3 (4.00-5.30) 3.52 MIL/MM3 (4.00-5.30) 3.48 MIL/MM3 (4.00-5.30) Hemoglobin 10.3 GM/DL (11.6-15.3) 10.7 GM/DL (11.6-15.3) 10.5 GM/DL (11.6-15.3) Hematocrit 33.0 % (35.0-46.0) 33.9 % (35.0-46.0) 33.0 % (35.0-46.0) Mean Corpuscular Volume 96.3 FL (80.0-100.0) 96.2 FL (80.0-100.0) 94.8 FL (80.0-100.0) Mean Corpuscular Hemoglobin 30.2 PG (27.0-34.0) 30.4 PG (27.0-34.0) 30.3 PG (27.0-34.0) Mean Corpuscular Hemoglobin Concent 31.4 % (32.0-36.0) 31.6 % (32.0-36.0) 32.0 % (32.0-36.0) Red Cell Distribution Width 18.0 % (11.6-17.2) 17.6 % (11.6-17.2) 17.9 % (11.6-17.2) Platelet Count 210 TH/MM3 (150-450) 209 TH/MM3 (150-450) 233 TH/MM3 (150-450) Mean Platelet Volume 8.5 FL (7.0-11.0) 9.3 FL (7.0-11.0) 8.7 FL (7.0-11.0) Neutrophils (%) (Auto) 73.2 % (16.0-70.0) 69.9 % (16.0-70.0) 70.4 % (16.0-70.0) Lymphocytes (%) (Auto) 15.4 % (9.0-44.0) 17.4 % (9.0-44.0) 17.3 % (9.0-44.0) Monocytes (%) (Auto) 5.0 % (0.0-8.0) 6.5 % (0.0-8.0) 6.1 % (0.0-8.0) Eosinophils (%) (Auto) 5.8 % (0.0-4.0) 5.5 % (0.0-4.0) 5.4 % (0.0-4.0) Basophils (%) (Auto) 0.6 % (0.0-2.0) 0.7 % (0.0-2.0) 0.8 % (0.0-2.0) Neutrophils # (Auto) 5.7 TH/MM3 (1.8-7.7) 5.4 TH/MM3 (1.8-7.7) 5.0 TH/MM3 (1.8-7.7) Lymphocytes # (Auto) 1.2 TH/MM3 (1.0-4.8) 1.3 TH/MM3 (1.0-4.8) 1.2 TH/MM3 (1.0-4.8) Monocytes # (Auto) 0.4 TH/MM3 (0-0.9) 0.5 TH/MM3 (0-0.9) 0.4 TH/MM3 (0-0.9) Eosinophils # (Auto) 0.4 TH/MM3 (0-0.4) 0.4 TH/MM3 (0-0.4) 0.4 TH/MM3 (0-0.4) Basophils # (Auto) 0.0 TH/MM3 (0-0.2) 0.1 TH/MM3 (0-0.2) 0.1 TH/MM3 (0-0.2) CBC Comment DIFF FINAL DIFF FINAL DIFF FINAL Differential Comment Blood Urea Nitrogen 25 MG/DL (7-18) 21 MG/DL (7-18) 20 MG/DL (7-18) Creatinine 0.38 MG/DL (0.50-1.00) 0.37 MG/DL (0.50-1.00) 0.40 MG/DL (0.50-1.00) Random Glucose 137 MG/DL (74-106) 121 MG/DL (74-106) 91 MG/DL (74-106) Calcium Level 9.0 MG/DL (8.5-10.1) 9.1 MG/DL (8.5-10.1) 9.5 MG/DL (8.5-10.1) Magnesium Level 1.8 MG/DL (1.5-2.5) 1.7 MG/DL (1.5-2.5) 1.8 MG/DL (1.5-2.5) Sodium Level 147 MEQ/L (136-145) 142 MEQ/L (136-145) 139 MEQ/L (136-145) Potassium Level 3.2 MEQ/L (3.5-5.1) 3.4 MEQ/L (3.5-5.1) 3.8 MEQ/L (3.5-5.1) Chloride Level 107 MEQ/L (98-107) 100 MEQ/L (98-107) 97 MEQ/L (98-107) Carbon Dioxide Level 35.8 MEQ/L (21.0-32.0) 36.8 MEQ/L (21.0-32.0) 38.2 MEQ/L (21.0-32.0) Anion Gap 4 MEQ/L (5-15) 5 MEQ/L (5-15) 4 MEQ/L (5-15) Estimat Glomerular Filtration Rate 165 ML/MIN (>89) 170 ML/MIN (>89) 155 ML/MIN (>89) Result Diagram: 06/26/17 0711 06/26/17 0711 Procedures 06/13/17: Intubated 06/20/17: Extubated . Assessment and Plan Disease Oriented Problem List: (1) Acute hypoxemic respiratory failure (2) Subdural hematoma (3) Atrial fibrillation with RVR (4) Seizure (5) Atrial fibrillation Symptom Scale: (1) Dyspnea (2) Debility (3) Dysphagia Pertinent Non-Medical Issues Psychosocial: Spiritual: Moravian. Legal: none known. Ethical issues impacting care: None known. . Important Contacts Sulma Reza (daughter): [phone] Napoleonradha Padilla (son): [phone] . Prognosis Patient has had multiple hospitalizations over the past thirteen months and has required mechanical ventilatory support three separate times. Due to multiple comorbidities, advanced age, and extreme debilitated state she is at an ongoing risk for complications and setbacks. Code Status: Full Code Plan * Legal decision maker: Patient currently capacitated to make her own decisions at this time but it would beneficial to have shared/supported decision making with her two adult children. Patient's daughter to bring in written advanced directives previously completed by patient. * CODE STATUS: FULL CODE * GOALS: Aggressive. Patient's family's goal is to get her well enough to be discharge to SNF. Palliative care had a long discussion regarding the patient's current clinical clinical status and likely scenarios/trajectories that could transpire. Family stated that the patient's living will details that she would not want to be sustained on artificial life support for an extended period of time if there was no chance of a meaningful recovery and would not want to be bedbound. * SYMPTOM MANAGEMENT: --dysphagia: Secondary to residual insult from subdural hematoma, seizures, intubation. Speech therapy providing ongoing therapy and evaluations. No recommendations at this time. --debility: Patient has had a complicated hospital course following original admission for subdural hematoma, subsequent intubation and bedbound status. PT, OT providing ongoing support. No recommendations at this time. --dyspnea: Secondary to CHF, recurrent pleural effusions, fluid volume overload. Pulmonology following and providing recommendations, patient receiving maximum therapeutic support. No further recommendations at this time. * Palliative care will continue to follow during hospital course as condition evolves, to assist patient/decision maker with understanding of medical conditions, weighing benefits/burdens of treatment options for clarification of goals of treatment. Additionally will assist with any symptoms of palliative concern. Attestation To help prompt me to consider important information that might be impacting today's encounter and assessment, information from prior notes written by myself or my colleagues may have been "brought forward" into today's note. My signature on this note, however, is an attestation that I personally performed the exam, history, and/or decision-making noted today, and, unless otherwise indicated, the interactions with patient, family, and staff as well as the review of records all occurred today. I also attest that the listed assessment and stated plan reflect my best clinical judgment today based on the combination of historical information, prior notes, and today's exam/ interactions. When time spent is documented, it refers only to time spent today by the signer, or if indicated, combined time spent today by collaborating physician/nurse practitioner. Cordelia Walker Jun 26, 2017 15:26
--- NOTE | 2017-06-26 16:24 | HHI.PR ---
Subjective Remarks Patient resting in bed able to awake with verbal stimuli A&O x3 reports she did not sleep well last night and is tired offers no specific complaints Objective Vitals Vital Signs Date Time Temp Pulse Resp B/P (MAP) Pulse Ox O2 Delivery O2 Flow Rate FiO2 06/26/17 12:32 97.4 95 18 123/58 (79) 95 06/26/17 10:16 93 Nasal Cannula 4.00 06/26/17 08:40 93 Nasal Cannula 4.00 06/26/17 08:18 97.7 91 18 119/68 (85) 91 06/26/17 04:00 97.9 93 18 122/60 (80) 91 06/26/17 00:00 98.3 106 18 95/59 (71) 94 06/25/17 22:45 Nasal Cannula 3.00 06/25/17 20:00 99.5 84 27 135/63 (87) 96 06/25/17 20:00 84 06/25/17 19:53 100 Nasal Cannula 3.00 06/25/17 19:00 100 Nasal Cannula 3.00 06/25/17 18:00 90 06/25/17 17:55 97 Nasal Cannula 3.00 Result Diagram: 06/26/17 0711 06/26/17 0711 Other Results Laboratory Tests Test 06/24/17 04:25 06/25/17 04:19 06/26/17 07:11 White Blood Count 7.8 TH/MM3 7.7 TH/MM3 7.2 TH/MM3 Red Blood Count 3.43 MIL/MM3 3.52 MIL/MM3 3.48 MIL/MM3 Hemoglobin 10.3 GM/DL 10.7 GM/DL 10.5 GM/DL Hematocrit 33.0 % 33.9 % 33.0 % Mean Corpuscular Volume 96.3 FL 96.2 FL 94.8 FL Mean Corpuscular Hemoglobin 30.2 PG 30.4 PG 30.3 PG Mean Corpuscular Hemoglobin Concent 31.4 % 31.6 % 32.0 % Red Cell Distribution Width 18.0 % 17.6 % 17.9 % Platelet Count 210 TH/MM3 209 TH/MM3 233 TH/MM3 Mean Platelet Volume 8.5 FL 9.3 FL 8.7 FL Neutrophils (%) (Auto) 73.2 % 69.9 % 70.4 % Lymphocytes (%) (Auto) 15.4 % 17.4 % 17.3 % Monocytes (%) (Auto) 5.0 % 6.5 % 6.1 % Eosinophils (%) (Auto) 5.8 % 5.5 % 5.4 % Basophils (%) (Auto) 0.6 % 0.7 % 0.8 % Neutrophils # (Auto) 5.7 TH/MM3 5.4 TH/MM3 5.0 TH/MM3 Lymphocytes # (Auto) 1.2 TH/MM3 1.3 TH/MM3 1.2 TH/MM3 Monocytes # (Auto) 0.4 TH/MM3 0.5 TH/MM3 0.4 TH/MM3 Eosinophils # (Auto) 0.4 TH/MM3 0.4 TH/MM3 0.4 TH/MM3 Basophils # (Auto) 0.0 TH/MM3 0.1 TH/MM3 0.1 TH/MM3 CBC Comment DIFF FINAL DIFF FINAL DIFF FINAL Differential Comment Blood Urea Nitrogen 25 MG/DL 21 MG/DL 20 MG/DL Creatinine 0.38 MG/DL 0.37 MG/DL 0.40 MG/DL Random Glucose 137 MG/DL 121 MG/DL 91 MG/DL Calcium Level 9.0 MG/DL 9.1 MG/DL 9.5 MG/DL Magnesium Level 1.8 MG/DL 1.7 MG/DL 1.8 MG/DL Sodium Level 147 MEQ/L 142 MEQ/L 139 MEQ/L Potassium Level 3.2 MEQ/L 3.4 MEQ/L 3.8 MEQ/L Chloride Level 107 MEQ/L 100 MEQ/L 97 MEQ/L Carbon Dioxide Level 35.8 MEQ/L 36.8 MEQ/L 38.2 MEQ/L Anion Gap 4 MEQ/L 5 MEQ/L 4 MEQ/L Estimat Glomerular Filtration Rate 165 ML/MIN 170 ML/MIN 155 ML/MIN Imaging Last Impressions Chest X-Ray 06/23/17 0000 Signed Impressions: Service Date/Time: Friday, June 23, 2017 05:37 - CONCLUSION: 1. Basilar airspace disease and small left pleural effusion. Findings similar to June 22. Jassi Hargrove MD Chest CT 06/22/17 0000 Signed Impressions: Service Date/Time: Thursday, June 22, 2017 16:20 - CONCLUSION: 1. Scattered areas of parenchymal infiltrate with dense consolidation in the left lower lobe. 2. No appreciable residual effusion on the left. 3. Tiny right pleural effusion. 4. Atherosclerosis. Andre Flores MD Abdomen X-Ray 06/17/17 0000 Signed Impressions: Service Date/Time: Saturday, June 17, 2017 12:44 - CONCLUSION: NG tube across the GE junction. Vic Romero MD FACR Head CT 06/11/17 0000 Signed Impressions: Service Date/Time: May 07:51 - CONCLUSION: Resolving right parietal and right tentorial subdural hematomas with no evidence of new acute hemorrhage, acute infarct, midline shift or extra-axial bleed. Dez Slaughter MD Objective Remarks GENERAL: This is a well-nourished, well-developed patient, in no apparent distress. CARDIOVASCULAR: Regular rate and rhythm, murmur present RESPIRATORY: Clear to auscultation. Breath sounds equal bilaterally. No wheezes , rales, or rhonchi. GASTROINTESTINAL: Abdomen soft, non-tender, nondistended. Normal active bowel sounds MUSCULOSKELETAL: Extremities without clubbing, cyanosis, or edema. NEURO: Alert & Oriented x3, but confused at times. MERRILL A/P Problem List: (1) Acute hypoxemic respiratory failure ICD Codes: J96.01 - Acute respiratory failure with hypoxia Status: Resolved Plan: - Patient on 4 L NC - comgmt with Pulm Medicine - underlying pneumonia, possible aspiration with seizure - vancomycin (06/13 - 06/24/17) - cefepime (06/13 - 06/24) - no fever - no leukocytosis - CT chest (06/22) --> consolidation at LLL - supportive care - DVT prophylaxis - plan to DC to SNF vs rehab tomorrow (2) Hypernatremia ICD Codes: E87.0 - Hyperosmolality and hypernatremia Plan: - resolved - stop D5W with KCL (3) Seizure ICD Codes: R56.9 - Unspecified convulsions Plan: - stable - keppra (4) Atrial fibrillation with RVR ICD Codes: I48.91 - Unspecified atrial fibrillation Status: Acute Plan: - stable - cardizem, digoxin (5) Hematoma of iliopsoas muscle ICD Codes: S70.10XA - Contusion of unspecified thigh, initial encounter Status: Acute Plan: - hg stable - continue PT (6) Closed traumatic brain injury ICD Codes: S06.9X9A - Unspecified intracranial injury with loss of consciousness of unspecified duration, initial encounter Status: Acute (7) Subdural hematoma ICD Codes: I62.00 - Nontraumatic subdural hemorrhage, unspecified (8) Recurrent left pleural effusion ICD Codes: J90 - Pleural effusion, not elsewhere classified (9) Depression ICD Codes: F32.9 - Major depressive disorder, single episode, unspecified Status: Chronic Plan: - stable (10) HTN (hypertension) ICD Codes: I10 - Essential (primary) hypertension Status: Chronic (11) Dysphagia ICD Codes: R13.10 - Dysphagia, unspecified Status: Acute Plan: - PT following - poor PO intake - receiving TF by NGT initially, NGT DC'd (06/25) - continue ensure with meals Assessment and Plan Patient examined. Assessment and plan formulated with Candelaria Long PA-C. I agree with the above. Pt tolerating PO intake. Anticipate discharge 06/27/17 Problem Qualifiers (1) Hematoma of iliopsoas muscle: Qualified Codes: S70.10XS - Contusion of unspecified thigh, sequela (2) Closed traumatic brain injury: Qualified Codes: S06.9X0D - Unspecified intracranial injury without loss of consciousness, subsequent encounter (3) Depression: Qualified Codes: F32.9 - Major depressive disorder, single episode, unspecified (4) HTN (hypertension): Qualified Codes: I10 - Essential (primary) hypertension (5) Dysphagia: Qualified Codes: R13.10 - Dysphagia, unspecified Candelaria Long Jun 26, 2017 16:23 Ivan Michael DO Jun 27, 2017 00:36
[2017-06-27] VITALS (11 sets, daily range): BP systolic 104–190; BP diastolic 52–81; PULSE 85–114; RESP 12–20; TEMP 97.4–98.8; O2SAT 93–98
[2017-06-27] MEDS: DILTIAZEM HCL 60 MG TAB PO SCH ×4 (01:15→18:32)
[2017-06-27] MEDS: CHLORHEXIDINE GLUCONATE 2 % 1 PACK (2 CLOTHS) TOP SCH (04:00)
[2017-06-27] MEDS: METOCLOPRAMIDE HCL 10 MG/2 ML VIAL IV PUSH SCH ×3 (07:40→23:12)
[2017-06-27] MEDS: CHLORHEXIDINE 0.12% (ORAL KIT) 15 ML CUP MT SCH ×2 (08:00→21:30)
[2017-06-27] MEDS: ARTIFICIAL TEARS OPTH SOLN 15 ML BTL EACH EYE SCH ×3 (09:00→18:00)
[2017-06-27] MEDS: BENEPROTEIN POWDER 1 PACK G-TUBE SCH ×3 (09:00→18:00)
[2017-06-27] MEDS: PANTOPRAZOLE SODIUM 40 MG VIAL IV PUSH SCH (10:01)
[2017-06-27] MEDS: DIGOXIN 0.5 MG/2 ML VIAL IV PUSH SCH (10:01)
[2017-06-27] MEDS: FUROSEMIDE 40 MG/4 ML VIAL IV PUSH SCH ×2 (10:01→21:44)
[2017-06-27] MEDS: SODIUM CHLORIDE 0.9% FLUSH 10 ML FLUSH IV FLUSH SCH ×2 (10:02→21:44)
[2017-06-27] MEDS: DOCUSATE SODIUM 50 MG/SENNA 8.6 MG TAB PO SCH ×2 (10:02→22:09)
[2017-06-27] MEDS: ASPIRIN 81 MG CHEW TAB CHEW SCH (10:02)
[2017-06-27] MEDS: levETIRAcetam INJ 500 MG in SODIUM CHLORIDE 0.9% INJ 100 ML IV SCH ×2 (10:04→21:30)
[2017-06-27] MEDS: ENOXAPARIN SODIUM 40 MG/0.4 ML SYRINGE SQ SCH (12:10)
--- NOTE | 2017-06-27 14:45 | HHI.PR ---
Subjective Remarks No new complaints. Pt tolerating PO intake. Pt had 1/4 chicken sandwich. Pt also ate some grits. Objective Vitals Vital Signs Date Time Temp Pulse Resp B/P (MAP) Pulse Ox O2 Delivery O2 Flow Rate FiO2 06/27/17 12:12 97 Nasal Cannula 4.00 06/27/17 12:00 97 Nasal Cannula 4.00 06/27/17 12:00 97.8 95 12 120/57 (78) 98 06/27/17 09:16 116/52 (73) 06/27/17 08:25 109 06/27/17 08:00 98.5 92 16 190/81 (117) 97 06/27/17 04:00 98.8 114 20 124/62 (82) 98 06/27/17 02:52 93 Nasal Cannula 4.00 06/27/17 00:00 98.0 97 18 123/80 (94) 98 06/26/17 19:30 98.9 88 16 114/54 (74) 93 06/26/17 19:20 Nasal Cannula 4.00 06/26/17 19:00 100 06/26/17 16:00 97.7 91 18 124/60 (81) 91 06/27/17 06/27/17 06/28/17 15:00 23:00 07:00 Intake Total 100 ml Balance 100 ml IV Total 100 ml Result Diagram: 06/26/1771006/26/17 07 Imaging Last Impressions Chest X-Ray 06/23/17 0000 Signed Impressions: Service Date/Time: Friday, June 23, 2017 05:37 - CONCLUSION: 1. Basilar airspace disease and small left pleural effusion. Findings similar to June 22. Jassi Hargrove MD Chest CT 06/22/17 0000 Signed Impressions: Service Date/Time: Thursday, June 22, 2017 16:20 - CONCLUSION: 1. Scattered areas of parenchymal infiltrate with dense consolidation in the left lower lobe. 2. No appreciable residual effusion on the left. 3. Tiny right pleural effusion. 4. Atherosclerosis. Andre Flores MD Abdomen X-Ray 06/17/17 0000 Signed Impressions: Service Date/Time: Saturday, June 17, 2017 12:44 - CONCLUSION: NG tube across the GE junction. Vic Romero MD FACR Head CT 06/11/17 0000 Signed Impressions: Service Date/Time: May 07:51 - CONCLUSION: Resolving right parietal and right tentorial subdural hematomas with no evidence of new acute hemorrhage, acute infarct, midline shift or extra-axial bleed. Dez Slaughter MD Objective Remarks GENERAL: This is a well-nourished, well-developed patient, in no apparent distress. CARDIOVASCULAR: Regular rate and rhythm, murmur present RESPIRATORY: Clear to auscultation. Breath sounds equal bilaterally. No wheezes , rales, or rhonchi. GASTROINTESTINAL: Abdomen soft, non-tender, nondistended. Normal active bowel sounds MUSCULOSKELETAL: Extremities without clubbing, cyanosis, or edema. NEURO: Alert & Oriented x3, but confused at times. MERRILL A/P Problem List: (1) Acute hypoxemic respiratory failure ICD Codes: J96.01 - Acute respiratory failure with hypoxia Status: Resolved Plan: - comgmt with Pulm Medicine - Patient on 4 L NC, will try to wean - underlying pneumonia, possible aspiration with seizure - vancomycin (06/13 - 06/24/17) - cefepime (06/13 - 06/24) - no fever - no leukocytosis - CT chest (06/22) --> consolidation at LLL - supportive care - DVT prophylaxis - pt/family do NOT want to return to [facility] d/t extended duration of PT - Pt/family request SNF - anticipate d/c to SNF Thursday06/28/17 (2) Hypernatremia ICD Codes: E87.0 - Hyperosmolality and hypernatremia Plan: - resolved - stop D5W with KCL (3) Seizure ICD Codes: R56.9 - Unspecified convulsions Plan: - stable - keppra (4) Atrial fibrillation with RVR ICD Codes: I48.91 - Unspecified atrial fibrillation Status: Acute Plan: - stable - cardizem, digoxin (5) Hematoma of iliopsoas muscle ICD Codes: S70.10XA - Contusion of unspecified thigh, initial encounter Status: Acute Plan: - hg stable - continue PT (6) Closed traumatic brain injury ICD Codes: S06.9X9A - Unspecified intracranial injury with loss of consciousness of unspecified duration, initial encounter Status: Acute (7) Subdural hematoma ICD Codes: I62.00 - Nontraumatic subdural hemorrhage, unspecified (8) Recurrent left pleural effusion ICD Codes: J90 - Pleural effusion, not elsewhere classified (9) Depression ICD Codes: F32.9 - Major depressive disorder, single episode, unspecified Status: Chronic Plan: - stable (10) HTN (hypertension) ICD Codes: I10 - Essential (primary) hypertension Status: Chronic (11) Dysphagia ICD Codes: R13.10 - Dysphagia, unspecified Status: Acute Plan: - PT following - poor PO intake - receiving TF by NGT initially, NGT DC'd (06/25) - continue ensure with meals Problem Qualifiers (1) Hematoma of iliopsoas muscle: Qualified Codes: S70.10XS - Contusion of unspecified thigh, sequela (2) Closed traumatic brain injury: Qualified Codes: S06.9X0D - Unspecified intracranial injury without loss of consciousness, subsequent encounter (3) Depression: Qualified Codes: F32.9 - Major depressive disorder, single episode, unspecified (4) HTN (hypertension): Qualified Codes: I10 - Essential (primary) hypertension (5) Dysphagia: Qualified Codes: R13.10 - Dysphagia, unspecified Ivan Michael DO Jun 27, 2017 14:45
[2017-06-27] MEDS: MIRTAZAPINE ODT 30 MG TAB PO SCH ×3 (22:02→22:10)
[2017-06-28] VITALS (8 sets, daily range): BP systolic 116–136; BP diastolic 56–88; PULSE 85–107; RESP 16–18; TEMP 97.5–98.7; O2SAT 92–96
[2017-06-28] MEDS: DILTIAZEM HCL 60 MG TAB PO SCH ×4 (00:31→18:19)
[2017-06-28] MEDS: CHLORHEXIDINE GLUCONATE 2 % 1 PACK (2 CLOTHS) TOP SCH (04:00)
[2017-06-28] MEDS: METOCLOPRAMIDE HCL 10 MG/2 ML VIAL IV PUSH SCH ×3 (05:35→21:54)
[2017-06-28] MEDS: CHLORHEXIDINE 0.12% (ORAL KIT) 15 ML CUP MT SCH ×2 (08:00→20:00)
[2017-06-28] MEDS: DIGOXIN 0.5 MG/2 ML VIAL IV PUSH SCH (09:00)
[2017-06-28] MEDS: ARTIFICIAL TEARS OPTH SOLN 15 ML BTL EACH EYE SCH ×3 (09:00→18:00)
[2017-06-28] MEDS: PANTOPRAZOLE SODIUM 40 MG VIAL IV PUSH SCH (09:00)
[2017-06-28] MEDS: FUROSEMIDE 40 MG/4 ML VIAL IV PUSH SCH ×2 (09:00→21:53)
[2017-06-28] MEDS: BENEPROTEIN POWDER 1 PACK G-TUBE SCH ×3 (09:00→18:00)
[2017-06-28] MEDS: levETIRAcetam INJ 500 MG in SODIUM CHLORIDE 0.9% INJ 100 ML IV SCH ×2 (09:01→21:51)
[2017-06-28] MEDS: ASPIRIN 81 MG CHEW TAB CHEW SCH (09:01)
[2017-06-28] MEDS: DOCUSATE SODIUM 50 MG/SENNA 8.6 MG TAB PO SCH ×2 (09:01→21:54)
[2017-06-28] MEDS: SODIUM CHLORIDE 0.9% FLUSH 10 ML FLUSH IV FLUSH SCH ×2 (09:02→21:52)
[2017-06-28] MEDS: ENOXAPARIN SODIUM 40 MG/0.4 ML SYRINGE SQ SCH (12:33)
--- NOTE | 2017-06-28 16:44 | HHI.PR ---
Subjective Remarks Patient resting in bed offers no specific complaints Patient's sone at bedside concerned regarding dry non productive cough that developed through out the day. Objective Vitals Vital Signs Date Time Temp Pulse Resp B/P (MAP) Pulse Ox O2 Delivery O2 Flow Rate FiO2 06/28/17 16:31 98.2 95 18 133/61 (85) 94 06/28/17 12:12 97.9 85 17 116/56 (76) 96 06/28/17 10:34 107 06/28/17 09:00 92 Nasal Cannula 2.00 06/28/17 08:47 98.4 87 18 120/88 (99) 92 06/28/17 05:00 97.5 94 18 136/65 (88) 95 06/28/17 00:09 98.7 107 18 127/70 (89) 95 06/27/17 22:33 97 Nasal Cannula 3.00 06/27/17 20:00 97.4 108 18 104/59 (74) 96 06/27/17 19:50 Nasal Cannula 3.00 06/27/17 19:45 97 06/28/17 06/28/17 06/29/17 15:00 23:00 07:00 Intake Total 105 ml Balance 105 ml IV Total 105 ml # Voids 2 1 Result Diagram: 06/26/17 0711 06/28/17 0630 Other Results Laboratory Tests Test 06/26/17 07:11 06/28/17 06:30 White Blood Count 7.2 TH/MM3 Red Blood Count 3.48 MIL/MM3 Hemoglobin 10.5 GM/DL Hematocrit 33.0 % Mean Corpuscular Volume 94.8 FL Mean Corpuscular Hemoglobin 30.3 PG Mean Corpuscular Hemoglobin Concent 32.0 % Red Cell Distribution Width 17.9 % Platelet Count 233 TH/MM3 Mean Platelet Volume 8.7 FL Neutrophils (%) (Auto) 70.4 % Lymphocytes (%) (Auto) 17.3 % Monocytes (%) (Auto) 6.1 % Eosinophils (%) (Auto) 5.4 % Basophils (%) (Auto) 0.8 % Neutrophils # (Auto) 5.0 TH/MM3 Lymphocytes # (Auto) 1.2 TH/MM3 Monocytes # (Auto) 0.4 TH/MM3 Eosinophils # (Auto) 0.4 TH/MM3 Basophils # (Auto) 0.1 TH/MM3 CBC Comment DIFF FINAL Differential Comment Blood Urea Nitrogen 20 MG/DL Creatinine 0.40 MG/DL 0.59 MG/DL Random Glucose 91 MG/DL Calcium Level 9.5 MG/DL Magnesium Level 1.8 MG/DL Sodium Level 139 MEQ/L Potassium Level 3.8 MEQ/L Chloride Level 97 MEQ/L Carbon Dioxide Level 38.2 MEQ/L Anion Gap 4 MEQ/L Estimat Glomerular Filtration Rate 155 ML/MIN 99 ML/MIN Imaging Last Impressions Chest X-Ray 06/23/17 0000 Signed Impressions: Service Date/Time: Friday, June 23, 2017 05:37 - CONCLUSION: 1. Basilar airspace disease and small left pleural effusion. Findings similar to June 22. Jassi Hargrove MD Chest CT 06/22/17 0000 Signed Impressions: Service Date/Time: Thursday, June 22, 2017 16:20 - CONCLUSION: 1. Scattered areas of parenchymal infiltrate with dense consolidation in the left lower lobe. 2. No appreciable residual effusion on the left. 3. Tiny right pleural effusion. 4. Atherosclerosis. Andre Flores MD Abdomen X-Ray 06/17/17 0000 Signed Impressions: Service Date/Time: Saturday, June 17, 2017 12:44 - CONCLUSION: NG tube across the GE junction. Vic Romero MD FACR Head CT 06/11/17 0000 Signed Impressions: Service Date/Time: May 07:51 - CONCLUSION: Resolving right parietal and right tentorial subdural hematomas with no evidence of new acute hemorrhage, acute infarct, midline shift or extra-axial bleed. Dez Slaughter MD Objective Remarks GENERAL: This is a well-nourished, well-developed patient, in no apparent distress. CARDIOVASCULAR: Regular rate and rhythm, murmur present RESPIRATORY: Clear to auscultation. Breath sounds equal bilaterally. No wheezes , rales, or rhonchi. GASTROINTESTINAL: Abdomen soft, non-tender, nondistended. Normal active bowel sounds MUSCULOSKELETAL: Extremities without clubbing, cyanosis, or edema. NEURO: Alert & Oriented x3, but confused at times. MERRILL A/P Problem List: (1) Acute hypoxemic respiratory failure ICD Codes: J96.01 - Acute respiratory failure with hypoxia Status: Resolved Plan: - comgmt with Pulm Medicine - Patient on 4 L NC, will try to wean - underlying pneumonia, possible aspiration with seizure - vancomycin (06/13 - 06/24/17) - cefepime (06/13 - 06/24) - no fever - no leukocytosis - CT chest (06/22) --> consolidation at LLL - supportive care - DVT prophylaxis - pt/family do NOT want to return to [facility] d/t extended duration of PT - Pt/family request SNF - patient has developed dry non productive cough family is very concerned. Lungs are clear. - IS Q1H while awake - CXR ordered and pending - anticipate d/c to SNF Thursday06/29/17 (2) Hypernatremia ICD Codes: E87.0 - Hyperosmolality and hypernatremia Plan: - resolved - stop D5W with KCL (3) Seizure ICD Codes: R56.9 - Unspecified convulsions Plan: - stable - keppra (4) Atrial fibrillation with RVR ICD Codes: I48.91 - Unspecified atrial fibrillation Status: Acute Plan: - stable - cardizem, digoxin (5) Hematoma of iliopsoas muscle ICD Codes: S70.10XA - Contusion of unspecified thigh, initial encounter Status: Acute Plan: - hg stable - continue PT (6) Closed traumatic brain injury ICD Codes: S06.9X9A - Unspecified intracranial injury with loss of consciousness of unspecified duration, initial encounter Status: Acute (7) Subdural hematoma ICD Codes: I62.00 - Nontraumatic subdural hemorrhage, unspecified (8) Recurrent left pleural effusion ICD Codes: J90 - Pleural effusion, not elsewhere classified (9) Depression ICD Codes: F32.9 - Major depressive disorder, single episode, unspecified Status: Chronic Plan: - stable (10) HTN (hypertension) ICD Codes: I10 - Essential (primary) hypertension Status: Chronic (11) Dysphagia ICD Codes: R13.10 - Dysphagia, unspecified Status: Acute Plan: - PT following - poor PO intake - receiving TF by NGT initially, NGT DC'd (06/25) - continue ensure with meals Assessment and Plan Patient examined. Assessment and plan formulated with Candelaria Long PA-C. I agree with the above. Problem Qualifiers (1) Hematoma of iliopsoas muscle: Qualified Codes: S70.10XS - Contusion of unspecified thigh, sequela (2) Closed traumatic brain injury: Qualified Codes: S06.9X0D - Unspecified intracranial injury without loss of consciousness, subsequent encounter (3) Depression: Qualified Codes: F32.9 - Major depressive disorder, single episode, unspecified (4) HTN (hypertension): Qualified Codes: I10 - Essential (primary) hypertension (5) Dysphagia: Qualified Codes: R13.10 - Dysphagia, unspecified Candelaria Long Jun 28, 2017 16:44 Ivan Michael DO Jun 30, 2017 10:01
--- NOTE | 2017-06-28 17:22 | RADRPT ---
EXAM DATE/TIME: 06/28/2017 16:39 [facility] COMPARISON: CHEST SINGLE AP, June 23, 2017, 5:37. INDICATIONS : Cough. MEDICAL HISTORY : Pleural effusion, AFIB, Subdural hematoma. SURGICAL HISTORY : Cholecystectomy. ENCOUNTER: Subsequent ACUITY: 2 days PAIN SCORE: 0/10 LOCATION: Bilateral chest FINDINGS: There is persistent lobar consolidation in the left lower lung causing loss of delineation of the ent miryam left hemidiaphragm and a portion of the left heart border. There is also a meniscal interface la terally in the left lower chest suggesting coexistent moderate-sized pleural effusion. There is stab le thickening of the lateral minor fissure on the right side. The heart is normal in size. Interval removal of gastric tube. CONCLUSION: Persistent left lower lobar consolidation and pleural effusion. Raad Mercedes MD on June 28, 2017 at 17:20 Board Certified Radiologist. This report was verified electronically.
[2017-06-28] MEDS: MIRTAZAPINE ODT 30 MG TAB PO SCH (21:54)
[2017-06-29] VITALS (7 sets, daily range): BP systolic 107–139; BP diastolic 53–81; PULSE 78–97; RESP 16–20; TEMP 97.2–98.4; O2SAT 94–98
[2017-06-29] MEDS: DILTIAZEM HCL 60 MG TAB PO SCH ×4 (00:50→17:22)
[2017-06-29] MEDS: CHLORHEXIDINE GLUCONATE 2 % 1 PACK (2 CLOTHS) TOP SCH (04:00)
[2017-06-29] MEDS: METOCLOPRAMIDE HCL 10 MG/2 ML VIAL IV PUSH SCH ×3 (06:10→21:07)
[2017-06-29] MEDS: CHLORHEXIDINE 0.12% (ORAL KIT) 15 ML CUP MT SCH ×2 (08:00→20:00)
[2017-06-29] MEDS: ASPIRIN 81 MG CHEW TAB CHEW SCH (08:54)
[2017-06-29] MEDS: FUROSEMIDE 40 MG/4 ML VIAL IV PUSH SCH ×2 (08:55→21:06)
[2017-06-29] MEDS: SODIUM CHLORIDE 0.9% FLUSH 10 ML FLUSH IV FLUSH SCH ×2 (08:55→21:05)
[2017-06-29] MEDS: ARTIFICIAL TEARS OPTH SOLN 15 ML BTL EACH EYE SCH ×3 (08:55→17:21)
[2017-06-29] MEDS: levETIRAcetam INJ 500 MG in SODIUM CHLORIDE 0.9% INJ 100 ML IV SCH (08:55)
[2017-06-29] MEDS: BENEPROTEIN POWDER 1 PACK G-TUBE SCH ×3 (08:55→17:21)
[2017-06-29] MEDS: DIGOXIN 0.5 MG/2 ML VIAL IV PUSH SCH (08:56)
[2017-06-29] MEDS: DOCUSATE SODIUM 50 MG/SENNA 8.6 MG TAB PO SCH ×2 (08:57→21:06)
[2017-06-29] MEDS: PANTOPRAZOLE SODIUM 40 MG VIAL IV PUSH SCH (08:57)
[2017-06-29] MEDS: ENOXAPARIN SODIUM 40 MG/0.4 ML SYRINGE SQ SCH (11:22)
--- NOTE | 2017-06-29 11:58 | HHI.HCPN ---
Reason for visit a. To assist with evaluation and management of symptoms including: dysphagia , dyspnea, debility b. To assist medical decision maker(s) with: better understanding of current medical conditions; weighing benefits/burdens of medical treatment options; making medical treatment decisions. . (Cordelia Walker) Subjective/Interval History Patient examined, no family at bedside. Patient is on 2 L NC, breathing comfortably, she any shortness of breath or pain. She becomes very tearful with just simple conversation, she stated she was wet and needed her linens changed. RN notified. Family/friend interactions Telephone conversation with patient's daughter Sulma. . (Cordelia Walker) Advance Directives Living Will: Completed, but not made available (Cordelia Walker) Objective Vital Signs Date Time Temp Pulse Resp B/P (MAP) Pulse Ox O2 Delivery O2 Flow Rate FiO2 06/29/17 09:07 96 Nasal Cannula 2.00 06/29/17 08:50 97.8 78 16 122/58 (79) 96 06/29/17 08:30 94 Nasal Cannula 2.00 06/29/17 06:00 97.2 92 16 126/60 (82) 95 06/29/17 00:00 97.9 97 18 139/81 (100) 95 06/28/17 21:00 95 Nasal Cannula 2.00 06/28/17 20:00 98.3 91 16 125/63 (83) 95 06/28/17 17:06 94 Nasal Cannula 06/28/17 16:31 98.2 95 18 133/61 (85) 94 06/28/17 12:12 97.9 85 17 116/56 (76) 96 Intake & Output 06/29/17 06/29/17 07:00 19:00 # Voids 3 Physical Exam CONSTITUTIONAL/GENERAL: This is an ill elderly female patient, in no apparent distress. TUBES/LINES/DRAINS: PIV x 2 SKIN: No jaundice, rashes, or lesions. Ecchymoses on upper extremities. No wounds seen anteriorly. Skin temperature appropriate. Not diaphoretic. CARDIOVASCULAR: Irregular rate and rhythm. Murmur. No JVD. Peripheral pulses symmetric. RESPIRATORY/CHEST: Symmetric, unlabored respirations. Clear to auscultation. Breath sounds equal bilaterally. No wheezes, rales, or rhonchi. GASTROINTESTINAL: Abdomen soft, non-tender, nondistended. No guarding. Bowel sounds present. GENITOURINARY: Without palpable bladder distension. MUSCULOSKELETAL: Extremities without clubbing, cyanosis, or edema. No mottling or clubbing. BLE +1 edema. NEUROLOGICAL:Drowsy. Motor and sensory grossly within normal limits. Follows commands. Moves all extremities. PSYCHIATRIC: No apparent hallucinations or other psychotic thought process. . (Cordelia Walker FLORENTINO) Diagnostic Tests Laboratory Laboratory Tests Test 06/28/17 06:30 Creatinine 0.59 MG/DL (0.50-1.00) Estimat Glomerular Filtration Rate 99 ML/MIN (>89) (Cordelia WalkerP) Result Diagram: 06/26/17 0711 06/28/17 0630 Imaging Last 72 hours Impressions Chest X-Ray 06/28/17 0000 Signed Impressions: Service Date/Time: Wednesday, June 28, 2017 16:39 - CONCLUSION: Persistent left lower lobar consolidation and pleural effusion. Raad Mercedes MD Procedures 06/13/17: Intubated 06/20/17: Extubated . (Cordelia Walker FLORENTINO) Assessment and Plan Disease Oriented Problem List: (1) Acute hypoxemic respiratory failure (2) Subdural hematoma (3) Atrial fibrillation with RVR (4) Seizure (5) Atrial fibrillation Symptom Scale: (1) Dyspnea (2) Debility (3) Dysphagia Pertinent Non-Medical Issues Psychosocial: Spiritual: Nondenominational. Legal: none known. Ethical issues impacting care: None known. . Important Contacts Sulma Libia (daughter): [phone] Napoleonradha Padilla (son): [phone] . Prognosis Patient has had multiple hospitalizations over the past thirteen months and has required mechanical ventilatory support three separate times. Due to multiple comorbidities, advanced age, and extreme debilitated state she is at an ongoing risk for complications and setbacks. Code Status: Full Code Plan * Legal decision maker: Patient currently capacitated to make her own decisions at this time but it would beneficial to have shared/supported decision making with her two adult children. Patient's daughter to bring in written advanced directives previously completed by patient. * CODE STATUS: FULL CODE * GOALS: Aggressive. * SYMPTOM MANAGEMENT: --dysphagia: Secondary to residual insult from subdural hematoma, seizures, intubation. Speech therapy providing ongoing therapy and evaluations. No recommendations at this time. --debility: Patient has had a complicated hospital course following original admission for subdural hematoma, subsequent intubation and bedbound status. PT, OT providing ongoing support. No recommendations at this time. --dyspnea: Secondary to CHF, recurrent pleural effusions, fluid volume overload. Pulmonology following and providing recommendations, patient receiving maximum therapeutic support. No further recommendations at this time. * Palliative care will continue to follow during hospital course as condition evolves, to assist patient/decision maker with understanding of medical conditions, weighing benefits/burdens of treatment options for clarification of goals of treatment. Additionally will assist with any symptoms of palliative concern. (Cordelia Walker) Attestation To help prompt me to consider important information that might be impacting today's encounter and assessment, information from prior notes written by myself or my colleagues may have been "brought forward" into today's note. My signature on this note, however, is an attestation that I personally performed the exam, history, and/or decision-making noted today, and, unless otherwise indicated, the interactions with patient, family, and staff as well as the review of records all occurred today. I also attest that the listed assessment and stated plan reflect my best clinical judgment today based on the combination of historical information, prior notes, and today's exam/ interactions. When time spent is documented, it refers only to time spent today by the signer, or if indicated, combined time spent today by collaborating physician/nurse practitioner. (Cordelia Walker) Collaborating MD Comments Chart reviewed. Case discussed with palliative care EYE PHYSICIAN. Above note reviewed and I concur. . (Ramírez Berry MD) Cordelia Walker Jun 29, 2017 11:58 Ramírez Berry MD Jul 05, 2017 12:01
--- NOTE | 2017-06-29 12:00 | HHI.PR ---
Subjective Remarks Patient tearful during exam- reports she, "just wants to go home." discussed with patient and patient understands not safe to go home at this time. Patient agreeable with DC to SNF. Patient reports non- productive cough, "about the same." Denies SOB, chest pain , n/c/d/c, fevers or chills. Objective Vitals Vital Signs Date Time Temp Pulse Resp B/P (MAP) Pulse Ox O2 Delivery O2 Flow Rate FiO2 06/29/17 09:07 96 Nasal Cannula 2.00 06/29/17 08:50 97.8 78 16 122/58 (79) 96 06/29/17 08:30 94 Nasal Cannula 2.00 06/29/17 06:00 97.2 92 16 126/60 (82) 95 06/29/17 00:00 97.9 97 18 139/81 (100) 95 06/28/17 21:00 95 Nasal Cannula 2.00 06/28/17 20:00 98.3 91 16 125/63 (83) 95 06/28/17 17:06 94 Nasal Cannula 06/28/17 16:31 98.2 95 18 133/61 (85) 94 06/28/17 12:12 97.9 85 17 116/56 (76) 96 Result Diagram: 06/26/17 0711 06/28/17 0630 Other Results Laboratory Tests Test 06/28/17 06:30 Creatinine 0.59 MG/DL Estimat Glomerular Filtration Rate 99 ML/MIN Imaging Last Impressions Chest X-Ray 06/28/17 0000 Signed Impressions: Service Date/Time: Wednesday, June 28, 2017 16:39 - CONCLUSION: Persistent left lower lobar consolidation and pleural effusion. Raad Mercedes MD Chest CT 06/22/17 0000 Signed Impressions: Service Date/Time: Thursday, June 22, 2017 16:20 - CONCLUSION: 1. Scattered areas of parenchymal infiltrate with dense consolidation in the left lower lobe. 2. No appreciable residual effusion on the left. 3. Tiny right pleural effusion. 4. Atherosclerosis. Andre Flores MD Abdomen X-Ray 06/17/17 0000 Signed Impressions: Service Date/Time: Saturday, June 17, 2017 12:44 - CONCLUSION: NG tube across the GE junction. Vic Romero MD FACR Head CT 06/11/17 0000 Signed Impressions: Service Date/Time: May 07:51 - CONCLUSION: Resolving right parietal and right tentorial subdural hematomas with no evidence of new acute hemorrhage, acute infarct, midline shift or extra-axial bleed. Dez Slaughter MD Last Impressions Chest X-Ray 06/23/17 0000 Signed Impressions: Service Date/Time: Friday, June 23, 2017 05:37 - CONCLUSION: 1. Basilar airspace disease and small left pleural effusion. Findings similar to June 22. Jassi Hargrove MD Chest CT 06/22/17 0000 Signed Impressions: Service Date/Time: Thursday, June 22, 2017 16:20 - CONCLUSION: 1. Scattered areas of parenchymal infiltrate with dense consolidation in the left lower lobe. 2. No appreciable residual effusion on the left. 3. Tiny right pleural effusion. 4. Atherosclerosis. Andre Flores MD Abdomen X-Ray 06/17/17 0000 Signed Impressions: Service Date/Time: Saturday, June 17, 2017 12:44 - CONCLUSION: NG tube across the GE junction. Vic Romero MD FACR Head CT 06/11/17 0000 Signed Impressions: Service Date/Time: May 07:51 - CONCLUSION: Resolving right parietal and right tentorial subdural hematomas with no evidence of new acute hemorrhage, acute infarct, midline shift or extra-axial bleed. Dez Slaughter MD Objective Remarks GENERAL: This is a well-nourished, well-developed patient, in no apparent distress. CARDIOVASCULAR: Regular rate and rhythm, murmur present RESPIRATORY: Clear to auscultation. Breath sounds equal bilaterally. No wheezes , rales, or rhonchi. GASTROINTESTINAL: Abdomen soft, non-tender, nondistended. Normal active bowel sounds MUSCULOSKELETAL: Extremities without clubbing, cyanosis, or edema. NEURO: Alert & Oriented x3, but confused at times. MERRILL A/P Problem List: (1) Acute hypoxemic respiratory failure ICD Codes: J96.01 - Acute respiratory failure with hypoxia Status: Resolved Plan: - comgmt with Pulm Medicine - Patient on 2 L NC, will try to wean - underlying pneumonia, possible aspiration with seizure - vancomycin (06/13 - 06/24/17) - cefepime (06/13 - 06/24) - no fever - no leukocytosis - CT chest (06/22) --> consolidation at LLL repeat CXR (06/28) showed persistent consolidation LLL with worsening left sided pleural effusion - US guided thoracentesis ordered - supportive care - DVT prophylaxis - pt/family do NOT want to return to [facility] d/t extended duration of PT - Pt/family request SNF - IS Q1H while awake - anticipate d/c to SNF in the next 1-2 days - have reached out to contact patient's daughter Sulma Reza no answer - Myself and Dr. Garcia both discussed patient's status with Patient's son Napoleon Padilla (2) Hypernatremia ICD Codes: E87.0 - Hyperosmolality and hypernatremia Plan: - resolved - stop D5W with KCL (3) Seizure ICD Codes: R56.9 - Unspecified convulsions Plan: - stable - keppra (4) Atrial fibrillation with RVR ICD Codes: I48.91 - Unspecified atrial fibrillation Status: Acute Plan: - stable - cardizem, digoxin (5) Hematoma of iliopsoas muscle ICD Codes: S70.10XA - Contusion of unspecified thigh, initial encounter Status: Acute Plan: - hg stable - continue PT (6) Closed traumatic brain injury ICD Codes: S06.9X9A - Unspecified intracranial injury with loss of consciousness of unspecified duration, initial encounter Status: Acute (7) Subdural hematoma ICD Codes: I62.00 - Nontraumatic subdural hemorrhage, unspecified (8) Recurrent left pleural effusion ICD Codes: J90 - Pleural effusion, not elsewhere classified (9) Depression ICD Codes: F32.9 - Major depressive disorder, single episode, unspecified Status: Chronic Plan: - stable (10) HTN (hypertension) ICD Codes: I10 - Essential (primary) hypertension Status: Chronic (11) Dysphagia ICD Codes: R13.10 - Dysphagia, unspecified Status: Acute Plan: - PT following - poor PO intake - receiving TF by NGT initially, NGT DC'd (06/25) - continue ensure with meals Assessment and Plan Patient examined. Assessment and plan formulated with Candelaria Long PA-C. I agree with the above. updated son. us guided left thoracentesis convert iv keppra/dig/protonix to po convert diltiazem to cardizem cd will cont iv lasix and check bmp. convert soon will plan for snf in next 2 days. son agrees. Problem Qualifiers (1) Hematoma of iliopsoas muscle: Qualified Codes: S70.10XS - Contusion of unspecified thigh, sequela (2) Closed traumatic brain injury: Qualified Codes: S06.9X0D - Unspecified intracranial injury without loss of consciousness, subsequent encounter (3) Depression: Qualified Codes: F32.9 - Major depressive disorder, single episode, unspecified (4) HTN (hypertension): Qualified Codes: I10 - Essential (primary) hypertension (5) Dysphagia: Qualified Codes: R13.10 - Dysphagia, unspecified Candelaria Long Jun 29, 2017 12:00 Armando Garcia MD Jun 29, 2017 15:42
--- NOTE | 2017-06-29 15:29 | HHI.PR ---
Subjective Remarks EASILY AROUSIBLE no SOB ON O2 Objective Vital Signs Date Time Temp Pulse Resp B/P (MAP) Pulse Ox O2 Delivery O2 Flow Rate FiO2 06/29/17 13:11 98.4 86 16 118/53 (74) 95 06/29/17 09:07 96 Nasal Cannula 2.00 06/29/17 08:50 97.8 78 16 122/58 (79) 96 06/29/17 08:30 94 Nasal Cannula 2.00 06/29/17 06:00 97.2 92 16 126/60 (82) 95 06/29/17 00:00 97.9 97 18 139/81 (100) 95 06/28/17 21:00 95 Nasal Cannula 2.00 06/28/17 20:00 98.3 91 16 125/63 (83) 95 06/28/17 17:06 94 Nasal Cannula 06/28/17 16:31 98.2 95 18 133/61 (85) 94 I/O 06/28/17 06/28/17 06/28/17 06/29/17 06/29/17 06/29/17 07:00 15:00 23:00 07:00 15:00 23:00 Intake Total 105 ml 360 ml Balance 105 ml 360 ml Intake Oral 360 ml IV Total 105 ml # Voids 4 2 1 3 2 Result Diagram: 06/26/17 0711 06/28/17 0630 Objective Remarks GENERAL: SKIN: Warm and dry. HEAD: Atraumatic. Normocephalic. EYES: Pupils equal and round. No scleral icterus. No injection or drainage. ENT: No nasal bleeding or discharge. Mucous membranes pink and moist. NECK: Trachea midline. No JVD. CARDIOVASCULAR: Regular rate and rhythm. RESPIRATORY: No accessory muscle use. Clear to auscultation. Breath sounds equal bilaterally. GASTROINTESTINAL: Abdomen soft, non-tender, nondistended. Hepatic and splenic margins not palpable. MUSCULOSKELETAL: Extremities without clubbing, cyanosis, or edema. No obvious deformities. NEUROLOGICAL: Awake and alert. No obvious cranial nerve deficits. Motor grossly within normal limits. Five out of 5 muscle strength in the arms and legs. Normal speech. PSYCHIATRIC: Appropriate mood and affect; insight and judgment normal. Assessment and Plan Assessment and Plan respiratory failure traumatic IC BLEED AFIB SEIZURE DISORDER CT CHEST LLL CONSOLIDATION NO EVIDENSE OF ACUTE INFECTION PLAN O2 NEEDED PULM TOILET INCREASE ACTIVITY FU CXRAY today Kay Villanueva MD Jun 29, 2017 3:29 pm
--- NOTE | 2017-06-29 15:58 | RADRPT ---
EXAM DATE/TIME: 06/29/2017 15:14 [facility] COMPARISON: CHEST SINGLE AP, June 28, 2017, 16:39. INDICATIONS : Post thoracentesis MEDICAL HISTORY : pleural effusion, AFIB, subdural hematoma SURGICAL HISTORY : Cholecystectomy. ENCOUNTER: Subsequent ACUITY: 3 days PAIN SCORE: Non-responsive. LOCATION: Left chest FINDINGS: Improved left pleural effusion following thoracentesis. No significant pneumothorax. Mild residual pl eural-parenchymal disease in the left lung zone. Redemonstration of patchy interstitial opacities in the right lower lung zone. Cardiomediastinal contours are within normal limits. Remainder of exam is unchanged. zone. CONCLUSION: 1. Small residual pleural-parenchymal disease in the left lower lung zone status post thoracentesis w ithout pneumothorax. James Doty MD on June 29, 2017 at 15:54 Board Certified Radiologist. This report was verified electronically.
[2017-06-29 18:41] LABS: INTERNATIONAL NORMALIZED RATIO 1.1 RATIO; PROTHROMBIN TIME - PATIENT 11.9 SEC (9.8-11.6)
[2017-06-29 18:56] LABS: BICARBONATE 35.8 MEQ/L (21.0-32.0); MAGNESIUM 1.9 MG/DL (1.5-2.5); POTASSIUM 4.1 MEQ/L (3.5-5.1)
[2017-06-29 19:11] LABS: DIGOXIN 0.9 NG/ML (0.8-2.0)
[2017-06-29] MEDS: levETIRAcetam 500 MG TAB PO SCH (21:06)
[2017-06-29] MEDS: MIRTAZAPINE ODT 30 MG TAB PO SCH (21:06)
[2017-06-30] VITALS (11 sets, daily range): BP systolic 95–160; BP diastolic 49–98; PULSE 78–101; RESP 16–20; TEMP 97.2–98.4; O2SAT 90–100
[2017-06-30] MEDS: DILTIAZEM HCL 60 MG TAB PO SCH (00:47)
[2017-06-30] MEDS: CHLORHEXIDINE GLUCONATE 2 % 1 PACK (2 CLOTHS) TOP SCH (04:00)
[2017-06-30] MEDS: CHLORHEXIDINE 0.12% (ORAL KIT) 15 ML CUP MT SCH ×2 (08:00→20:00)
[2017-06-30] MEDS: PANTOPRAZOLE SOD 40 MG DELAYED RELEASE TAB PO SCH (08:01)
[2017-06-30] MEDS: FUROSEMIDE 20 MG TAB PO SCH ×2 (08:01→17:27)
[2017-06-30] MEDS: DIGOXIN 0.125 MG TAB PO SCH (08:01)
[2017-06-30] MEDS: DILTIAZEM-CD 240 MG CAP ER PO SCH (08:01)
[2017-06-30] MEDS: levETIRAcetam 500 MG TAB PO SCH ×2 (08:01→23:52)
[2017-06-30] MEDS: DOCUSATE SODIUM 50 MG/SENNA 8.6 MG TAB PO SCH ×2 (08:01→21:00)
[2017-06-30] MEDS: ASPIRIN 81 MG CHEW TAB CHEW SCH (08:02)
[2017-06-30] MEDS: ARTIFICIAL TEARS OPTH SOLN 15 ML BTL EACH EYE SCH ×3 (08:04→17:27)
[2017-06-30 08:18] LABS: BICARBONATE 37.8 MEQ/L (21.0-32.0); POTASSIUM 3.4 MEQ/L (3.5-5.1)
[2017-06-30] MEDS: SODIUM CHLORIDE 0.9% FLUSH 10 ML FLUSH IV FLUSH SCH ×2 (09:00→23:53)
[2017-06-30] MEDS: BENEPROTEIN POWDER 1 PACK G-TUBE SCH ×3 (09:00→17:27)
[2017-06-30] MEDS ORDERED: LIDOCAINE HCL 1% 30 ML VIAL SQ ONE (09:10)
--- NOTE | 2017-06-30 09:40 | RADRPT ---
EXAM DATE/TIME: 06/30/2017 09:16 [facility] COMPARISON: CHEST SINGLE AP, June 29, 2017, 15:14. INDICATIONS : Post left thoracentesis. MEDICAL HISTORY : Hypertension. Pleural effusion, AFIB, Subdural hematoma SURGICAL HISTORY : Cholecystectomy. ENCOUNTER: Initial ACUITY: 1 day PAIN SCORE: 0/10 LOCATION: Bilateral chest FINDINGS: Improved aeration of the left lower lobe following left-sided thoracentesis with minimal residual lef t lower lung zone airspace disease. Continued right lower lung zone patchy interstitial opacities. Ca rdiomediastinal contours are within normal limits. Remainder of the exam is unchanged. CONCLUSION: 1. No pneumothorax status post left-sided thoracentesis with significantly improved aeration of the l eft lower lung zone. James Doty MD on June 30, 2017 at 9:36 Board Certified Radiologist. This report was verified electronically.
--- NOTE | 2017-06-30 10:25 | RADRPT ---
EXAM DATE/TIME: 06/30/2017 08:27 [place] COMPARISON: No previous studies available for comparison. INDICATIONS : Left pleural effusion. MEDICAL HISTORY : Thyroid goiter. Subdural hematoma. Atrial fibrillation. Congestive heart failure. Hypercholestero lemia. Hypertension. Diverticulitits. Gallbladder disease, unspecified. Hernia, hiatal. Arthriti s. Anxiety. Endocrine disorder. SURGICAL HISTORY : Cholecystectomy Total knee replacement, left. Total knee replacement, right. Bilateral cataract surge ry. Bilateral lens replacement. Fistula repair. Colostomy. ENCOUNTER: Initial ACUITY: 2 days PAIN SCORE: 2/10 LOCATION: Left chest FLUID: Total volume of 820 cc of clear, red fluid was removed. Fluid was discarded. Thoracentesis was therapeutic only. TECHNIQUE: 1. Ultrasound guidance for thoracentesis. 2. Thoracentesis. The risks, benefits, and alternatives to ultrasound guided thoracentesis were explained to the patien t in lay simple terms, including the risk of bleeding and infection. Written and verbal informed con sent was obtained. Appropriate area for thoracentesis was marked under ultrasound guidance with the patient in the uprig ht position. Overlying skin was prepped and draped in the usual sterile fashion and with local anest hetic, a dermatotomy was made with an 11 blade scalpel. A 6 Swedish thoracentesis catheter was placed in the pleural space and fluid was removed. Catheter was then removed and a sterile dressing applie d. There were no immediate complications. The patient tolerated the procedure well and the left the ultrasound suite in stable condition. Chest radiograph is to be obtained. CONCLUSION: Uncomplicated ultrasound guided thoracentesis. Vamshi Fernandez MD on June 30, 2017 at 10:23 Board Certified Radiologist. This report was verified electronically.
[2017-06-30] MEDS: ENOXAPARIN SODIUM 40 MG/0.4 ML SYRINGE SQ SCH (11:48)
[2017-06-30] MEDS ORDERED: POTASSIUM CHLORIDE 20 MEQ CONTROLLED RELEASE TAB PO ONE (12:00)
--- NOTE | 2017-06-30 12:02 | HHI.PR ---
Subjective Remarks eating well. feels ok. s/p thoracentesis. Objective Vitals heart reg lung course bs abd s/nt ext no edema Vital Signs Date Time Temp Pulse Resp B/P (MAP) Pulse Ox O2 Delivery O2 Flow Rate FiO2 06/30/17 11:30 Nasal Cannula 2.00 06/30/17 09:55 99 20 132/66 (88) 100 06/30/17 09:40 97.8 101 20 152/65 (94) 99 06/30/17 08:37 97.2 95 16 95/49 (64) 98 06/30/17 08:10 97 2.00 06/30/17 07:45 97.5 92 18 119/59 (79) 99 06/30/17 05:51 97.3 85 20 130/64 (86) 95 06/30/17 01:27 97.8 95 19 124/60 (81) 96 06/29/17 21:42 98.1 90 20 126/59 (81) 96 06/29/17 21:00 96 Nasal Cannula 2.00 06/29/17 16:37 98.1 78 16 107/55 (72) 98 06/29/17 13:11 98.4 86 16 118/53 (74) 95 Result Diagram: 06/26/17 0711 06/30/17 0630 Imaging Last Impressions Chest X-Ray 06/28/17 0000 Signed Impressions: Service Date/Time: Wednesday, June 28, 2017 16:39 - CONCLUSION: Persistent left lower lobar consolidation and pleural effusion. Raad Mercedes MD Chest CT 06/22/17 0000 Signed Impressions: Service Date/Time: Thursday, June 22, 2017 16:20 - CONCLUSION: 1. Scattered areas of parenchymal infiltrate with dense consolidation in the left lower lobe. 2. No appreciable residual effusion on the left. 3. Tiny right pleural effusion. 4. Atherosclerosis. Andre Flores MD Abdomen X-Ray 06/17/17 0000 Signed Impressions: Service Date/Time: Saturday, June 17, 2017 12:44 - CONCLUSION: NG tube across the GE junction. Vic Romero MD FACR Head CT 06/11/17 0000 Signed Impressions: Service Date/Time: May 07:51 - CONCLUSION: Resolving right parietal and right tentorial subdural hematomas with no evidence of new acute hemorrhage, acute infarct, midline shift or extra-axial bleed. Dez Slaughter MD Last Impressions Chest X-Ray 06/23/17 0000 Signed Impressions: Service Date/Time: Friday, June 23, 2017 05:37 - CONCLUSION: 1. Basilar airspace disease and small left pleural effusion. Findings similar to June 22. Jassi Hargrove MD Chest CT 06/22/17 0000 Signed Impressions: Service Date/Time: Thursday, June 22, 2017 16:20 - CONCLUSION: 1. Scattered areas of parenchymal infiltrate with dense consolidation in the left lower lobe. 2. No appreciable residual effusion on the left. 3. Tiny right pleural effusion. 4. Atherosclerosis. Andre Flores MD Abdomen X-Ray 06/17/17 0000 Signed Impressions: Service Date/Time: Saturday, June 17, 2017 12:44 - CONCLUSION: NG tube across the GE junction. Vic Romero MD FACR Head CT 06/11/17 0000 Signed Impressions: Service Date/Time: May 07:51 - CONCLUSION: Resolving right parietal and right tentorial subdural hematomas with no evidence of new acute hemorrhage, acute infarct, midline shift or extra-axial bleed. Dez Slaughter MD A/P Problem List: (1) Acute hypoxemic respiratory failure ICD Codes: J96.01 - Acute respiratory failure with hypoxia Status: Resolved Plan: - comgmt with Pulm Medicine - Patient on 2 L NC, will try to wean - underlying pneumonia, possible aspiration with seizure - vancomycin (06/13 - 06/24/17) - cefepime (06/13 - 06/24) - no fever - no leukocytosis - CT chest (06/22) --> consolidation at LLL repeat CXR (06/28) showed persistent consolidation LLL with worsening left sided pleural effusion - US guided thoracentesis ordered - supportive care - DVT prophylaxis - pt/family do NOT want to return to [facility] d/t extended duration of PT - Pt/family request SNF - IS Q1H while awake Long discussion with son yesterday. I converted all iv cardiac and neuro meds to po US guided thoracentesis today. over 800 cc. IS today. If she remains stable then transition her to rehab tomorrow. (2) Hypernatremia ICD Codes: E87.0 - Hyperosmolality and hypernatremia Plan: - resolved - stop D5W with KCL (3) Seizure ICD Codes: R56.9 - Unspecified convulsions Plan: - stable - keppra (4) Atrial fibrillation with RVR ICD Codes: I48.91 - Unspecified atrial fibrillation Status: Acute Plan: - stable - cardizem, digoxin (5) Hematoma of iliopsoas muscle ICD Codes: S70.10XA - Contusion of unspecified thigh, initial encounter Status: Acute Plan: - hg stable - continue PT (6) Closed traumatic brain injury ICD Codes: S06.9X9A - Unspecified intracranial injury with loss of consciousness of unspecified duration, initial encounter Status: Acute (7) Subdural hematoma ICD Codes: I62.00 - Nontraumatic subdural hemorrhage, unspecified Status: Acute (8) Recurrent left pleural effusion ICD Codes: J90 - Pleural effusion, not elsewhere classified Status: Acute (9) Depression ICD Codes: F32.9 - Major depressive disorder, single episode, unspecified Status: Chronic Plan: - stable (10) HTN (hypertension) ICD Codes: I10 - Essential (primary) hypertension Status: Chronic (11) Dysphagia ICD Codes: R13.10 - Dysphagia, unspecified Status: Acute Plan: - PT following - poor PO intake - receiving TF by NGT initially, NGT DC'd (06/25) - continue ensure with meals Problem Qualifiers (1) Hematoma of iliopsoas muscle: Qualified Codes: S70.10XS - Contusion of unspecified thigh, sequela (2) Closed traumatic brain injury: Qualified Codes: S06.9X0D - Unspecified intracranial injury without loss of consciousness, subsequent encounter (3) Depression: Qualified Codes: F32.9 - Major depressive disorder, single episode, unspecified (4) HTN (hypertension): Qualified Codes: I10 - Essential (primary) hypertension (5) Dysphagia: Qualified Codes: R13.10 - Dysphagia, unspecified Armando Garcia MD Jun 30, 2017 12:02
--- NOTE | 2017-06-30 16:09 | HHI.PR ---
Subjective Remarks EASILY AROUSIBLE no SOB ON O2 Objective Vital Signs Date Time Temp Pulse Resp B/P (MAP) Pulse Ox O2 Delivery O2 Flow Rate FiO2 06/30/17 12:00 97.5 79 20 128/54 (78) 95 06/30/17 11:30 Nasal Cannula 2.00 06/30/17 09:55 99 20 132/66 (88) 100 06/30/17 09:40 97.8 101 20 152/65 (94) 99 06/30/17 08:37 97.2 95 16 95/49 (64) 98 06/30/17 08:10 97 2.00 06/30/17 07:45 97.5 92 18 119/59 (79) 99 06/30/17 05:51 97.3 85 20 130/64 (86) 95 06/30/17 01:27 97.8 95 19 124/60 (81) 96 06/29/17 21:42 98.1 90 20 126/59 (81) 96 06/29/17 21:00 96 Nasal Cannula 2.00 06/29/17 16:37 98.1 78 16 107/55 (72) 98 I/O 06/29/17 06/29/17 06/29/17 06/30/17 06/30/17 06/30/17 07:00 15:00 23:00 07:00 15:00 23:00 Intake Total 360 ml 100 ml 480 ml Balance 360 ml 100 ml 480 ml Intake Oral 360 ml 480 ml IV Total 100 ml # Voids 3 2 2 1 Result Diagram: 06/26/17 0711 06/30/17 0630 Objective Remarks GENERAL: SKIN: Warm and dry. HEAD: Atraumatic. Normocephalic. EYES: Pupils equal and round. No scleral icterus. No injection or drainage. ENT: No nasal bleeding or discharge. Mucous membranes pink and moist. NECK: Trachea midline. No JVD. CARDIOVASCULAR: Regular rate and rhythm. RESPIRATORY: No accessory muscle use. Clear to auscultation. Breath sounds equal bilaterally. GASTROINTESTINAL: Abdomen soft, non-tender, nondistended. Hepatic and splenic margins not palpable. MUSCULOSKELETAL: Extremities without clubbing, cyanosis, or edema. No obvious deformities. NEUROLOGICAL: Awake and alert. No obvious cranial nerve deficits. Motor grossly within normal limits. Five out of 5 muscle strength in the arms and legs. Normal speech. PSYCHIATRIC: Appropriate mood and affect; insight and judgment normal. Assessment and Plan Assessment and Plan respiratory failure traumatic IC BLEED AFIB SEIZURE DISORDER CT CHEST LLL CONSOLIDATION NO EVIDENSE OF ACUTE INFECTION PLAN O2 NEEDED PULM TOILET INCREASE ACTIVITY Discharge Planning GENERAL: SKIN: Warm and dry. HEAD: Atraumatic. Normocephalic. EYES: Pupils equal and round. No scleral icterus. No injection or drainage. ENT: No nasal bleeding or discharge. Mucous membranes pink and moist. NECK: Trachea midline. No JVD. CARDIOVASCULAR: Regular rate and rhythm. RESPIRATORY: No accessory muscle use. Clear to auscultation. Breath sounds equal bilaterally. GASTROINTESTINAL: Abdomen soft, non-tender, nondistended. Hepatic and splenic margins not palpable. MUSCULOSKELETAL: Extremities without clubbing, cyanosis, or edema. No obvious deformities. NEUROLOGICAL: Awake and alert. No obvious cranial nerve deficits. Motor grossly within normal limits. Five out of 5 muscle strength in the arms and legs. Normal speech. PSYCHIATRIC: Appropriate mood and affect; insight and judgment normal. Physician Attestation Laboratory Tests Test 06/28/17 06:30 06/29/17 17:40 06/30/17 06:30 Prothrombin Time 11.9 SEC (9.8-11.6) Blood Urea Nitrogen 24 MG/DL (7-18) 25 MG/DL (7-18) Chloride Level 95 MEQ/L (98-107) 96 MEQ/L (98-107) Carbon Dioxide Level 35.8 MEQ/L (21.0-32.0) 37.8 MEQ/L (21.0-32.0) Calcium Level 10.4 MG/DL (8.5-10.1) Potassium Level 3.4 MEQ/L (3.5-5.1) Anion Gap 4 MEQ/L (5-15) Kay Villanueva MD Jun 30, 2017 16:08
[2017-06-30] MEDS: MIRTAZAPINE ODT 30 MG TAB PO SCH (23:52)
[2017-07-01 01:06] VITALS: BP 107/57; PULSE 90; RESP 18; TEMP 98.6; O2SAT 100
[2017-07-01] MEDS: CHLORHEXIDINE GLUCONATE 2 % 1 PACK (2 CLOTHS) TOP SCH (04:00)
[2017-07-01 05:49] VITALS: BP 129/79; PULSE 90; RESP 24; TEMP 97.5; O2SAT 98
[2017-07-01 07:19] LABS: BICARBONATE 35.1 MEQ/L (21.0-32.0); POTASSIUM 3.8 MEQ/L (3.5-5.1)
[2017-07-01 08:00] VITALS: BP 148/68; PULSE 81; RESP 20; TEMP 97.7; O2SAT 100
[2017-07-01 08:14] VITALS: O2SAT 98
[2017-07-01] MEDS: DILTIAZEM-CD 240 MG CAP ER PO SCH (08:59)
[2017-07-01] MEDS: PANTOPRAZOLE SOD 40 MG DELAYED RELEASE TAB PO SCH (08:59)
[2017-07-01] MEDS: DOCUSATE SODIUM 50 MG/SENNA 8.6 MG TAB PO SCH (08:59)
[2017-07-01] MEDS: DIGOXIN 0.125 MG TAB PO SCH (09:00)
[2017-07-01] MEDS: FUROSEMIDE 20 MG TAB PO SCH (09:00)
[2017-07-01] MEDS: levETIRAcetam 500 MG TAB PO SCH (09:00)
[2017-07-01] MEDS: ASPIRIN 81 MG CHEW TAB CHEW SCH (09:00)
--- NOTE | 2017-07-01 09:55 | HHI.PR ---
Subjective Remarks comfortable. no events overnight she is ready to try PT at snf Objective Vitals heart irreg lung improved air enty bi abd s/nt ext no edema Vital Signs Date Time Temp Pulse Resp B/P (MAP) Pulse Ox O2 Delivery O2 Flow Rate FiO2 07/01/17 08:14 98 Nasal Cannula 2.00 07/01/17 08:00 97.7 81 20 148/68 (94) 100 07/01/17 05:49 97.5 90 24 129/79 (96) 98 07/01/17 01:06 98.6 90 18 107/57 (74) 100 06/30/17 20:32 98.0 90 20 160/77 (104) 95 06/30/17 20:30 100 Nasal Cannula 2.00 06/30/17 17:53 100 Nasal Cannula 2.00 06/30/17 16:00 98.1 78 20 135/63 (87) 100 06/30/17 12:00 97.5 79 20 128/54 (78) 95 06/30/17 11:30 Nasal Cannula 2.00 06/30/17 09:55 99 20 132/66 (88) 100 Result Diagram: 07/01/17 0529 Imaging Last Impressions Chest X-Ray 06/28/17 0000 Signed Impressions: Service Date/Time: Wednesday, June 28, 2017 16:39 - CONCLUSION: Persistent left lower lobar consolidation and pleural effusion. Raad Mercedes MD Chest CT 06/22/17 0000 Signed Impressions: Service Date/Time: Thursday, June 22, 2017 16:20 - CONCLUSION: 1. Scattered areas of parenchymal infiltrate with dense consolidation in the left lower lobe. 2. No appreciable residual effusion on the left. 3. Tiny right pleural effusion. 4. Atherosclerosis. Andre Flores MD Abdomen X-Ray 06/17/17 0000 Signed Impressions: Service Date/Time: Saturday, June 17, 2017 12:44 - CONCLUSION: NG tube across the GE junction. Vic Romero MD FACR Head CT 06/11/17 0000 Signed Impressions: Service Date/Time: May 07:51 - CONCLUSION: Resolving right parietal and right tentorial subdural hematomas with no evidence of new acute hemorrhage, acute infarct, midline shift or extra-axial bleed. Dez Slaughter MD Last Impressions Chest X-Ray 06/23/17 0000 Signed Impressions: Service Date/Time: Friday, June 23, 2017 05:37 - CONCLUSION: 1. Basilar airspace disease and small left pleural effusion. Findings similar to June 22. Jassi Hargrove MD Chest CT 06/22/17 0000 Signed Impressions: Service Date/Time: Thursday, June 22, 2017 16:20 - CONCLUSION: 1. Scattered areas of parenchymal infiltrate with dense consolidation in the left lower lobe. 2. No appreciable residual effusion on the left. 3. Tiny right pleural effusion. 4. Atherosclerosis. Andre Flores MD Abdomen X-Ray 06/17/17 0000 Signed Impressions: Service Date/Time: Saturday, June 17, 2017 12:44 - CONCLUSION: NG tube across the GE junction. Vic Romero MD FACR Head CT 06/11/17 0000 Signed Impressions: Service Date/Time: May 07:51 - CONCLUSION: Resolving right parietal and right tentorial subdural hematomas with no evidence of new acute hemorrhage, acute infarct, midline shift or extra-axial bleed. Dez Slaughter MD A/P Problem List: (1) Acute hypoxemic respiratory failure ICD Codes: J96.01 - Acute respiratory failure with hypoxia Status: Resolved Plan: respiratory failure pneumonia . probably aspiration after sx s/p left chest tube and drainage. neg malignancy and neg cx. then over 800 cc thoracentesis left on 06/30 pulmonary feels no active lung infection - vancomycin (06/13 - 06/24/17) - cefepime (06/13 - 06/24) cont IS O2 at 2lnc duonebs as needed d/c and transition to snf today. (2) Hypernatremia ICD Codes: E87.0 - Hyperosmolality and hypernatremia Plan: - resolved - stop D5W with KCL (3) Seizure ICD Codes: R56.9 - Unspecified convulsions Plan: - stable - keppra (4) Atrial fibrillation with RVR ICD Codes: I48.91 - Unspecified atrial fibrillation Status: Acute Plan: - stable - cardizem, digoxin (5) Hematoma of iliopsoas muscle ICD Codes: S70.10XA - Contusion of unspecified thigh, initial encounter Status: Acute Plan: - hg stable - continue PT (6) Closed traumatic brain injury ICD Codes: S06.9X9A - Unspecified intracranial injury with loss of consciousness of unspecified duration, initial encounter Status: Acute (7) Subdural hematoma ICD Codes: I62.00 - Nontraumatic subdural hemorrhage, unspecified Status: Acute (8) Recurrent left pleural effusion ICD Codes: J90 - Pleural effusion, not elsewhere classified Status: Acute (9) Depression ICD Codes: F32.9 - Major depressive disorder, single episode, unspecified Status: Chronic Plan: - stable (10) HTN (hypertension) ICD Codes: I10 - Essential (primary) hypertension Status: Chronic (11) Dysphagia ICD Codes: R13.10 - Dysphagia, unspecified Status: Acute Plan: -po intake improved Problem Qualifiers (1) Hematoma of iliopsoas muscle: Qualified Codes: S70.10XS - Contusion of unspecified thigh, sequela (2) Closed traumatic brain injury: Qualified Codes: S06.9X0D - Unspecified intracranial injury without loss of consciousness, subsequent encounter (3) Depression: Qualified Codes: F32.9 - Major depressive disorder, single episode, unspecified (4) HTN (hypertension): Qualified Codes: I10 - Essential (primary) hypertension (5) Dysphagia: Qualified Codes: R13.10 - Dysphagia, unspecified Armando Garcia MD Jul 01, 2017 09:55
[2017-07-01] MEDS ORDERED: FURO20TA PO (10:03)
[2017-07-01] MEDS ORDERED: ASPI81CH25 CHEW (10:03)
[2017-07-01] MEDS ORDERED: MIRT1TAB44 PO (10:03)
[2017-07-01] MEDS ORDERED: LEVE500 PO (10:03)
[2017-07-01] MEDS ORDERED: CARD240C6 PO (10:03)
--- NOTE | 2017-07-01 10:14 | HHI.DCPOC ---
Discharge Care Plan Diagnosis: (1) Subdural hematoma (2) Seizure (3) Acute hypoxemic respiratory failure (4) Recurrent left pleural effusion (5) Atrial fibrillation with RVR (6) HTN (hypertension) (7) Depression Goals to Promote Your Health * To prevent worsening of your condition and complications * To maintain your health at the optimal level Directions to Meet Your Goals Take your medications as prescribed Follow your dietary instruction Follow activity as directed Keep your appointments as scheduled Take your immunizations and boosters as scheduled If your symptoms worsen call your PCP, if no PCP go to Urgent Care Center or Emergency Room Smoking is Dangerous to Your Health. Avoid second hand smoke Call the 24-hour hour crisis hotline for domestic abuse at Armando Garcia MD Jul 01, 2017 10:14
[2017-07-01 12:08] VITALS: BP 112/59; PULSE 88; RESP 20; TEMP 97.5; O2SAT 100
--- NOTE | 2017-07-05 14:56 | HHI.DS ---
Discharge Summary Admission Date Jun 11, 2017 at 06:07 Discharge Date: Jul 01, 2017 Admitting Diagnosis Seizure in a patient with history of increased density at the right tentorium and posterior right interhemispheric fissure consistent with an evolving subdural hemorrhage (1) Acute hypoxemic respiratory failure Diagnosis: Principal ICD Codes: J96.01 - Acute respiratory failure with hypoxia Status: Resolved (2) Hypernatremia Diagnosis: Principal ICD Codes: E87.0 - Hyperosmolality and hypernatremia (3) Seizure Diagnosis: Principal ICD Codes: R56.9 - Unspecified convulsions (4) Atrial fibrillation with RVR Diagnosis: Principal ICD Codes: I48.91 - Unspecified atrial fibrillation Status: Acute (5) Hematoma of iliopsoas muscle Diagnosis: Principal ICD Codes: S70.10XA - Contusion of unspecified thigh, initial encounter Status: Acute (6) Closed traumatic brain injury Diagnosis: Secondary ICD Codes: S06.9X9A - Unspecified intracranial injury with loss of consciousness of unspecified duration, initial encounter Status: Acute (7) Subdural hematoma Diagnosis: Secondary ICD Codes: I62.00 - Nontraumatic subdural hemorrhage, unspecified Status: Acute (8) Recurrent left pleural effusion ICD Codes: J90 - Pleural effusion, not elsewhere classified Status: Acute (9) Depression Diagnosis: Secondary ICD Codes: F32.9 - Major depressive disorder, single episode, unspecified Status: Chronic (10) HTN (hypertension) Diagnosis: Secondary ICD Codes: I10 - Essential (primary) hypertension Status: Chronic (11) Dysphagia Diagnosis: Secondary ICD Codes: R13.10 - Dysphagia, unspecified Status: Acute CBC/BMP: 07/01/17 0529 Transfer Summary This is a 76-year-old female. Date of transfer from [facility] 06/11/2017. Past medical history includes atrial fibrillation on chronic anticoagulation with warfarin, hypertension, history of a colovesicular fistula, depression. Patient was originally admitted to [facility] 05/29 status post fall to her head which revealed a subdural hematoma involving the right tentorium with small critical hemorrhage on the right parietal field. Patient was evaluated by Dr. Peterson with no intervention planned. He is originally treated with levetiracetam 500 mg IV twice daily for 7 days. She is also on duloxetine 30 mg daily for depression. Patient was also seen in consultation by Dr. Matos for atrial fibrillation with RVR. She is initially treated with diltiazem drip with a phenylephrine drip for hypotension. Phenylephrine drip was discontinued after 1 day. Patient currently not a candidate for any quickly she. Possibly can affirm watchman program in 6-8 weeks. She is also received treatment to the right lower lobe pneumonia and complete antibiotic therapy At 540, I was notified by [facility] RN to go to [facility] on a floor because "patient need to be intubated." I walked if there are arrived at 5:45 AM. During that time, the patient was in transit while being manually bag to room 1313. I arrived in [facility] 8 minutes later after walking across the hospital to evaluate the patient. Upon arrival, patient was receiving Ambu bag resuscitation. Patient is now responsive to voice and noxious stimuli however has a right-sided gaze. She is withdrawing to pain right upper and left upper greater than bilateral lower extremities. She received 1 mg of lorazepam around 0605. Orders for stat CT, loading with levetiracetam 1000 mg all ordered. All laboratories currently ordered as well and pending 06/12: More alert later in day yesterday. Protects airway well. Required sedation last noc for severe agitation. Family is adamant that we give her sedation. We have tried to explain the risks but they insist. Will avoid benzo - try atypical antipsychotic Geodon. 06/13: Still requiring increased O2. Major obstacles are to diurese off effusions and extra water in face of biventricular heart failure, and heart rate control. Update 1230 hours: Patient more SOB. Can't maintain sats on NRBM, struggling. Requires intubation, cultures, abx. Discussed wit the family at the beside. 06/14: Required intubation 06/13. Early culture sputum is benign. CXR still look like heart failure but RML appears to have pneumonitis, probably aspiration during seizure two days ago. BNP > 800. EF 45% 06/15: Tolerated CPAP >1 hour today then became tachypneic. CXR with small to moderate pleural effusion. UO 1.35 L in 24 hours. Approximately 5Kg wt gain since admission. BNP 1042. 06/16: Remains sedated, orally intubated on mechanical ventilation. Had left sided pigtail catheter placed on 06/15 with drainage of about 1.2 L of pleural fluid. 06/17: Remains sedated, orally intubated on mechanical ventilation. Failing C Pap trials. 06/18: No acute events overnight. Gets agitated on sedation hold. Start Precedex to facilitate ventilator weaning. L chest tube draining 270 ml in 24 hours 06/19: Remains intubated sedated with Precedex 0.4 g per KG per hour. Follows commands in bilateral upper extremities. Chest x-ray pending. Chest tube output 350 mL in 24 hours, urine output 1.5 L. 06/20: Remains intubated on Precedex. Wakes up follows commands. Urine output approximately 2 L. 530 ml chest tube output. Additional 20 mg of Lasix given 06/21: Extubated 06/20/17, tolerating well. Patient more awake oriented to person and place. Urine output 3.2 L in 24 hours. Chest tube output 830 mL in 24 hours. Increase Lasix to 40 mg IV q12 06/22/17: Breathing comfortably remains oriented to person and place, somnolent. Urine output 2.6 L, chest tube output more than 1 L in 24 hours Hospital Course Problem List: (1) Acute hypoxemic respiratory failure respiratory failure Recently admitted with SDH and sent to [facility]. pneumonia . probably aspiration after seizure. s/p left chest tube and drainage. neg malignancy and neg cx. then over 800 cc thoracentesis left on 06/30 pulmonary feels no active lung infection - vancomycin (06/13 - 06/24/17) - cefepime (06/13 - 06/24) -cont IS -O2 at 2lnc -duonebs as needed -d/c and transition to snf today. (2) Hypernatremia ICD Codes: E87.0 - Hyperosmolality and hypernatremia Plan: - resolved - stop D5W with KCL (3) Seizure ICD Codes: R56.9 - Unspecified convulsions Plan: - stable - keppra (4) Atrial fibrillation with RVR ICD Codes: I48.91 - Unspecified atrial fibrillation Status: Acute Plan: - stable - cardizem, digoxin (5) Hematoma of iliopsoas muscle ICD Codes: S70.10XA - Contusion of unspecified thigh, initial encounter Status: Acute Plan: - hg stable - continue PT (6) Closed traumatic brain injury ICD Codes: S06.9X9A - Unspecified intracranial injury with loss of consciousness of unspecified duration, initial encounter Status: Acute (7) Subdural hematoma ICD Codes: I62.00 - Nontraumatic subdural hemorrhage, unspecified Status: Acute (8) Recurrent left pleural effusion ICD Codes: J90 - Pleural effusion, not elsewhere classified Status: Acute (9) Depression ICD Codes: F32.9 - Major depressive disorder, single episode, unspecified Status: Chronic Plan: - stable (10) HTN (hypertension) ICD Codes: I10 - Essential (primary) hypertension Status: Chronic (11) Dysphagia ICD Codes: R13.10 - Dysphagia, unspecified Status: Acute Plan: -po intake improved Problem Qualifiers (1) Hematoma of iliopsoas muscle: Qualified Codes: S70.10XS - Contusion of unspecified thigh, sequela (2) Closed traumatic brain injury: Qualified Codes: S06.9X0D - Unspecified intracranial injury without loss of consciousness, subsequent encounter (3) Depression: Qualified Codes: F32.9 - Major depressive disorder, single episode, unspecified (4) HTN (hypertension): Qualified Codes: I10 - Essential (primary) hypertension (5) Dysphagia: Qualified Codes: R13.10 - Dysphagia, unspecified Armando Garcia MD Jul 01, 2017 09:55 <Electronically signed by Armando Garcia MD> 07/05/17 1431 Pt Condition on Discharge: Stable Discharge Disposition: Discharge to SNF Discharge Instructions DIET: Follow Instructions for: Heart Healthy Diet Speech Therapy-Diet Recommends: Honey Thickened Liquids, Pureed Activities you can perform: Regular-No Restrictions Follow up Referrals: Neurology - 2 Weeks with Kraig Paris MD Neurosurgery - 3 Weeks with Guilherme Peterson MD PCP Follow-up - 2 Weeks with kelly yi New Medications: Aspirin (Aspirin Low Strength) 81 Mg Chew 81 MG CHEW DAILY for afib for 30 Days, EA Diltiazem CD 24 HR (Cardizem CD 24 HR) 240 Mg Caper 240 MG PO DAILY for afib for 30 Days, #30 CAP Furosemide (Furosemide) 20 Mg Tab 20 MG PO BID@09,18 for swelling for 30 Days, TAB Levetiracetam (Keppra) 500 Mg Tab 500 MG PO Q12HR for Seizure Control, #60 TAB Mirtazapine ODT (Mirtazapine ODT) 30 Mg Tab 30 MG PO HS for Depression Control, #30 TAB Continued Medications: Digoxin (Digoxin) 0.125 Mg Tab 0.125 MG PO DAILY for Regulate Heart Beat, #30 TAB [address] (Duloxetine DR) 30 Mg Capdr 30 MG PO DAILY, #30 CAP 0 Refills Ipratropium-Albuterol Neb (Duoneb) 0.5-2.5 Mg/3 Ml Neb 1 AMPULE NEB Q4HR NEB PRN for SHORTNESS OF BREATH for 30 Days, ML Pantoprazole (Pantoprazole) 40 Mg Tab 40 MG PO DAILY, #30 TAB Potassium Chloride ER (Klor-Con 10) 10 Meq Tab 20 MEQ PO DAILY, #30 TAB Discontinued Medications: Diltiazem CD 24 HR (Cardizem CD 24 HR) 180 Mg Caper 180 MG PO DAILY, #30 CAP Hydrocodone-Acetaminophen (Hydrocodone-Acetaminophen) 5-325 mg Tab 1 TAB PO Q4H PRN for Pain 5-10, #10 TAB Metoprolol Tartrate (Lopressor) 50 Mg Tab 50 MG PO Q12HR, #60 TAB [Furosemide] () 10 MG/ML INJ 20 MG IV PUSH BID@09,18 for 1 Day, INJECTION Armando Garcia MD Jul 05, 2017 14:55
== END 2017-07-01 14:14 | DRG 56 ==
LOC: N03B 06:07 → N05A 06-25 22:24
PROVIDERS: ADMIT Hospitalist; ATTEND Hospitalist
PROC: 5A1955Z Respiratory Ventilation, Greater than 96 Consecutive Hours (ICD-10-PCS; principal; 2017-06-13)
PROC: 0BH17EZ Insertion of Endotracheal Airway into Trachea, Via Natural or Artificial Opening (ICD-10-PCS; 2017-06-13)
PROC: 0W9B30Z Drainage of Left Pleural Cavity with Drainage Device, Percutaneous Approach (ICD-10-PCS; 2017-06-13)
PROC: 0W9B3ZX Drainage of Left Pleural Cavity, Percutaneous Approach, Diagnostic (ICD-10-PCS; 2017-06-30)
DX: I69.398 Other sequelae of cerebral infarction (principal); L89.154 Pressure ulcer of sacral region, stage 4; J69.0 Pneumonitis due to inhalation of food and vomit; J96.01 Acute respiratory failure with hypoxia; I21.4 Non-ST elevation (NSTEMI) myocardial infarction; G93.41 Metabolic encephalopathy; R56.9 Unspecified convulsions; E87.0 Hyperosmolality and hypernatremia; I50.22 Chronic systolic (congestive) heart failure; Z68.41 Body mass index [BMI] 40.0-44.9, adult; R13.19 Other dysphagia; I11.0 Hypertensive heart disease with heart failure; I48.2 Chronic atrial fibrillation; S70.10 Contusion of unspecified thigh; E78.5 Hyperlipidemia, unspecified; F32.9 Major depressive disorder, single episode, unspecified; Z86.718 Personal history of other venous thrombosis and embolism; Z79.01 Long term (current) use of anticoagulants; K44.9 Diaphragmatic hernia without obstruction or gangrene; K21.9 Gastro-esophageal reflux disease without esophagitis; G47.33 Obstructive sleep apnea (adult) (pediatric); Z96.653 Presence of artificial knee joint, bilateral; Z87.891 Personal history of nicotine dependence; E66.01 Morbid (severe) obesity due to excess calories; W19.XXXD Unspecified fall, subsequent encounter; Z51.5 Encounter for palliative care; S06.9X0S Unspecified intracranial injury without loss of consciousness, sequela
CPT/HCPCS: 31500; 31600; 32555; 36556; 36600; 70450; 71010; 71250; 74000; 76937; 80048; 80053; 80076; 80162; 80202; 81001; 82140; 82150; 82550; 82565; 82805; 82945; 83605; 83615; 83690; 83735; 83880; 83986; 84100; 84132; 84146; 84157; 84439; 84443; 84484; 85025; 85027; 85384; 85610; 85730; 87015; 87040; 87070; 87086; 87102; 87116; 87205; 87206; 87641; 88112; 88305; 89051; 93005; 94002; 94003; 94150; 94640; 94664; 94667; 95819; C1729; C9113; J0131; J0692; J1160; J1650; J1940; J1953; J2060; J2250; J2765; J3010; J3370; J3480; J3486; J7030; J7040; J7050; J7613; P9047

== ENCOUNTER 2017-07-21 13:25 | Inpatient (IN) | payer MEDICARE ==
[~2017-07-21] VITALS: Ht 152.4 cm; Wt 80.1 kg
[2017-07-21] VITALS (9 sets, daily range): BP systolic 111–141; BP diastolic 60–88; PULSE 110–152; RESP 18–24; TEMP 97.7–97.9; O2SAT 95–100
[~2017-07-21 13:25] MED LIST changes: +ASPI81CH25 CHEW; -CARD180C5 PO; +CARD240C6 PO; -CART120C PO; -FURO1TAB60 PO; +FURO20TA PO; -Furosemide IV PUSH; -HYDR-3516 PO; -K-TA10TA PO; +LEVE500 PO; -METO-309 PO; -METO25TA3 PO; +MIRT1TAB44 PO
--- NOTE | 2017-07-21 14:05 | PD ---
HPI Chief Complaint: General Weakness Time Seen by Provider: 13:40 Travel History International Travel<30 days: No Contact w/Intl Traveler<30days: No Traveled to known affect area: No History of Present Illness HPI 76-year-old female that presents to the ED for evaluation of lower leg DVTs. [facility]. Patient has a chronic history of subdural hematoma, A. fib, multiple falls and was admitted to the hospital and released on July 05. Patient was admitted in early May for a subdural hematoma and had problems with the subdural. Apparent subdural or worsen she was readmitted to the hospital. She was taken off her Coumadin secondary to the head bleed. She does have a history of A. fib and is to be on Coumadin for this. She only takes aspirin at this time. Per patient about a week ago she had a fall while doing physical therapy. She's been having leg pain and swelling since. She also states that she has a bedsore to her back that is oozing. She denies any head injury or loss of consciousness recently. She denies any pain other than to the lower legs which is 4 out of 10. She apparently had some imaging and blood work done today and was found to have DVTs bilaterally. Dr. Snow is her primary at the [facility] and was sent here for evaluation of this. Per the note from [facility] Dr. Snow wants IV heparin. No other medical complaints stay at this time. Patient denies any chest pain or shortness of breath but she is tachycardic on exam. She does have a known history of A. fib. Per patient she is compliant with her medications. She is somewhat of a poor historian does appear to be somewhat confused and forgetful on occasion. This appears to be normal for her. She did have a episode of hypoxia and had to have a chest tube in place during her last admission. [facility] Past Medical History Arthritis: Yes Asthma: No Atrial Fibrillation: Yes Autoimmune Disease: No Blood Disorders: No Anxiety: No Depression: No Heart Rhythm Problems: Yes Cancer: No Cardiovascular Problems: Yes High Cholesterol: Yes Chemotherapy: No Chest Pain: No Congestive Heart Failure: Yes COPD: No Cerebrovascular Accident: Yes Diabetes: No Diminished Hearing: No Endocrine: Yes Gastrointestinal Disorders: Yes (HX DIVERTICULITIS) GERD: Yes Genitourinary: Yes Headaches: No Hiatal Hernia: Yes Heparin Induced Thrombocytopen: No Hypertension: Yes Immune Disorder: No Implanted Vascular Access Dvce: Yes Kidney Stones: No Musculoskeletal: Yes Neurologic: Yes Psychiatric: No Reproductive: No Respiratory: Yes Immunizations Current: Yes Migraines: No Radiation Therapy: No Renal Failure: No Seizures: No Sickle Cell Disease: No Sleep Apnea: No Thyroid Disease: Yes (GOITER/Nodules on thyroid) Ulcer: No Past Surgical History Abdominal Surgery: No (Fistula fix; colostomy placement; gallbladder removal) AICD: No Arteriovenous Shunt: No Body Medical Devices: Colostomy R ABD Cardiac Surgery: No Cholecystectomy: Yes Ear Surgery: No Endocrine Surgery: No Eye Surgery: Yes (cataract bilateral) Genitourinary Surgery: No Gynecologic Surgery: No Insulin Pump: No Joint Replacement: Yes (BILATERAL KNEE) Neurologic Surgery: No Oral Surgery: No Pacemaker: No Thoracic Surgery: No Other Surgery: Yes Social History Alcohol Use: No Tobacco Use: No Substance Use: No Allergies-Medications (Allergen,Severity, Reaction): Coded Allergies: codeine (Verified Allergy, Severe, NAUSEA, 07/21/17) piperacillin (Verified Allergy, Intermediate, Rash, 07/21/17) tazobactam (Verified Allergy, Intermediate, Rash, 07/21/17) Reported Meds & Prescriptions Reported Meds & Active Scripts Active Furosemide 20 Mg Tab 20 Mg PO BID@,18 30 Days Keppra (Levetiracetam) 500 Mg Tab 500 Mg PO Q12HR Aspirin Low Strength (Aspirin) 81 Mg Chew 81 Mg CHEW DAILY 30 Days Cardizem CD 24 HR (Diltiazem CD 24 HR) 240 Mg Caper 240 Mg PO DAILY 30 Days Pantoprazole (Pantoprazole Sodium) 40 Mg Tab 40 Mg PO DAILY Klor-Con 10 (Potassium Chloride) 10 Meq Tab 20 Meq PO DAILY Duoneb (Ipratropium-Albuterol Neb) 0.5-2.5 Mg/3 Ml Neb 1 Ampule NEB Q4HR NEB PRN 30 Days Reported Digoxin 0.125 Mg Tab 0.125 Mg PO DAILY Duloxetine DR (Duloxetine HCl) 30 Mg Capdr 30 Mg PO DAILY Review of Systems Except as stated in HPI: all other systems reviewed are Neg Physical Exam Narrative GENERAL: SKIN: Warm and dry. She does have a small decubitus ulcer stage 2 on her tailbone area about 2x2cm with erythema, small opening with greenish discharge noted. Noted on the sacral area. HEAD: Atraumatic. Normocephalic. EYES: Pupils equal and round. No scleral icterus. No injection or drainage. ENT: No nasal bleeding or discharge. Mucous membranes pink and moist. Tongue is midline. No uvula deviation. NECK: Trachea midline. No JVD. CARDIOVASCULAR: Irregular rate and rhythm. No murmurs, S3, S4. RESPIRATORY: No accessory muscle use. Clear to auscultation. Breath sounds equal bilaterally. GASTROINTESTINAL: Abdomen soft, non-tender, nondistended. Hepatic and splenic margins not palpable. MUSCULOSKELETAL: Extremities without clubbing, cyanosis, or edema. No obvious deformities. Full range of motion of the upper and lower extremities bilaterally. 2+ pulses bilaterally. 1+ pitting edema. Tenderness to calfs bilaterally. NEUROLOGICAL: Awake and alert. No obvious cranial nerve deficits. Motor grossly within normal limits. Five out of 5 muscle strength in the arms and legs. Normal speech. PSYCHIATRIC: Appropriate mood and affect; insight and judgment normal. Data Data Last Documented VS Vital Signs Date Time Temp Pulse Resp B/P (MAP) Pulse Ox O2 Delivery O2 Flow Rate FiO2 07/21/17 13:45 18 95 Room Air 07/21/17 13:39 97.9 118 Orders Orders Complete Blood Count With Diff (07/21/17 13:40) Comprehensive Metabolic Panel (07/21/17 13:40) Prothrombin Time / Inr (Pt) (07/21/17 13:40) Act Partial Throm Time (Ptt) (07/21/17 13:40) Urinalysis - C+S If Indicated (07/21/17 13:40) Magnesium (Mg) (07/21/17 13:40) Thyroid Stimulating Hormone (07/21/17 13:40) Chest, Single Ap (07/21/17 13:40) Us Leg Venous Doppler Bilat (07/21/17 ) Electrocardiogram (07/21/17 13:43) Cath For Specimen (07/21/17 13:43) Ecg Monitoring (07/21/17 13:43) Oximetry (07/21/17 13:43) Ct Pulmonary Angiogram (07/21/17 ) Ct Brain W/O Iv Contrast(Rout) (07/21/17 ) Blood Culture (07/21/17 15:26) Wound Culture And Gram Stain (07/21/17 15:26) Vancomycin Inj (Vancomycin Inj) (07/21/17 15:45) Urine Culture (07/21/17 15:45) Iohexol 350 Inj (Omnipaque 350 Inj) (07/21/17 16:21) Heparin-D5w 25,000 U/250 Ml (Heparin-D5w (07/21/17 16:30) Act Partial Throm Time (Ptt) (07/21/17 16:23) Prothrombin Time / Inr (Pt) (07/21/17 16:23) Cbc No Diff, Includes Plts (07/21/17 16:23) Cbc No Diff, Includes Plts (07/24/17 06:00) Act Partial Throm Time (Ptt) (07/21/17 23:23) Occult Blood (Hemoccult) Stool (07/21/17 16:23) Admit Order (Ed Use Only) (07/21/17 17:03) Labs Laboratory Tests Test 07/21/17 14:15 07/21/17 15:45 White Blood Count 16.2 TH/MM3 Red Blood Count 4.47 MIL/MM3 Hemoglobin 13.8 GM/DL Hematocrit 41.9 % Mean Corpuscular Volume 93.7 FL Mean Corpuscular Hemoglobin 30.9 PG Mean Corpuscular Hemoglobin Concent 32.9 % Red Cell Distribution Width 16.4 % Platelet Count 206 TH/MM3 Mean Platelet Volume 8.5 FL Neutrophils (%) (Auto) 83.9 % Lymphocytes (%) (Auto) 8.7 % Monocytes (%) (Auto) 5.7 % Eosinophils (%) (Auto) 1.2 % Basophils (%) (Auto) 0.5 % Neutrophils # (Auto) 13.6 TH/MM3 Lymphocytes # (Auto) 1.4 TH/MM3 Monocytes # (Auto) 0.9 TH/MM3 Eosinophils # (Auto) 0.2 TH/MM3 Basophils # (Auto) 0.1 TH/MM3 CBC Comment DIFF FINAL Differential Comment Prothrombin Time 11.1 SEC Prothromb Time International Ratio 1.0 RATIO Activated Partial Thromboplast Time 26.4 SEC Blood Urea Nitrogen 18 MG/DL Creatinine 0.58 MG/DL Random Glucose 103 MG/DL Total Protein 7.3 GM/DL Albumin 2.7 GM/DL Calcium Level 10.3 MG/DL Magnesium Level 1.8 MG/DL Alkaline Phosphatase 155 U/L Aspartate Amino Transf (AST/SGOT) 48 U/L Alanine Aminotransferase (ALT/SGPT) 46 U/L Total Bilirubin 0.6 MG/DL Sodium Level 133 MEQ/L Potassium Level 5.2 MEQ/L Chloride Level 102 MEQ/L Carbon Dioxide Level 24.3 MEQ/L Anion Gap 7 MEQ/L Estimat Glomerular Filtration Rate 101 ML/MIN Thyroid Stimulating Hormone 3rd Gen 1.520 uIU/ML Urine Color YELLOW Urine Turbidity HAZY Urine pH 5.5 Urine Specific Kimberly 1.020 Urine Protein TRACE mg/dL Urine Glucose (UA) NEG mg/dL Urine Ketones NEG mg/dL Urine Occult Blood TRACE Urine Nitrite NEG Urine Bilirubin NEG Urine Urobilinogen LESS THAN 2.0 MG/DL Urine Leukocyte Esterase LARGE Urine RBC 10 /hpf Urine WBC 110 /hpf Urine Squamous Epithelial Cells 1 /hpf Urine Calcium Oxalate Crystals RARE /hpf Urine Bacteria MANY /hpf Urine Hyaline Casts 16 /lpf Urine Mucus FEW /lpf Microscopic Urinalysis Comment CULTURE INDICATED MDM Medical Decision Making Medical Screen Exam Complete: Yes Emergency Medical Condition: Yes Medical Record Reviewed: Yes Interpretation(s) CBC & BMP Diagram 07/21/17 14:15 Total Protein 7.3, Albumin 2.7 L, Calcium Level 10.3 H, Magnesium Level 1.8, Alkaline Phosphatase 155 H, Aspartate Amino Transf (AST/SGOT) 48 H, Alanine Aminotransferase (ALT/SGPT) 46, Total Bilirubin 0.6 coags WNL Last Impressions Chest X-Ray 07/21/17 1340 Signed Impressions: Service Date/Time: Friday, July 21, 2017 14:43 - CONCLUSION: Stable exam with small areas of consolidation involving the lingula and right middle lobe. Mild cardiomegaly. Raad Meraz Jr., MD Lower Extremity Ultrasound 07/21/17 0000 Signed Impressions: Service Date/Time: Friday, July 21, 2017 14:41 - CONCLUSION: Bilateral DVTs. Raad Meraz Jr., MD UA shows UTI Differential Diagnosis atrial fibrillation versus PE versus DVT versus need for anticoagulation versus coagulopathy versus head injury versus generalized weakness versus bleed Narrative Course 76-year-old female that presents to the ED for evaluation of bilateral DVT. Patient was properly examined and was found to have signs and symptoms consistent appears to be blood clots. Per report patient had an ultrasound that showed DVTs. Patient was seen by Dr. Hayes at the rehabilitation facility where she sat and sent her here for eval. Possible to start IV heparin. A call has been placed to him. Labs and imaging were done. I discussed the case with my attending who agrees that CT pulmonary diagram is indicated secondary to patient's tachycardia and recent diagnosis of bilateral DVTs. CT of the head was also done to evaluate whether subdural hematoma has improved or still bleeding. I spoke over the phone with Dr. Snow who is the patient's primary at the [facility]. He mentions to me that patient has been on Lovenox but apparently might not have been given to the patient. He got verbal report today about the ultrasound possible for DVTs. He is the one who told patient to come here and get evaluated. He does agree that patient should be on anticoagulation but I did mention to him I concerns about starting patient back on anticoagulation secondary to the recent head bleed. At this time she did agree that we should redo ultrasound to double check neck short that she does have a blood clot as well as make sure she doesn't have a PE as she could be a candidate for IVC filter. He does agree the patient should be admitted to the [facility]. Labs and images came back. Labs and imaging that showed bilateral DVT and per radiologist report also PE. Patient appears to have a UTI as well as a leukocytosis. Chest x-ray appears to be stable. Otherwise labs unremarkable. Case discussed in my attending Dr. Herron who agrees with plan. Patient was started heparin drip. Patient will be admitted to [facility] to Dr Michael. Procedures EKG Prior to Arrival: No Diagnosis Primary Impression: Pulmonary embolism Qualified Codes: I26.92 - Saddle embolus of pulmonary artery without acute cor pulmonale Additional Impressions: DVT (deep venous thrombosis) Qualified Codes: I82.413 - Acute embolism and thrombosis of femoral vein, bilateral UTI (urinary tract infection) Qualified Codes: N30.00 - Acute cystitis without hematuria Decubitus skin ulcer Qualified Codes: L89.152 - Pressure ulcer of sacral region, stage 2 Atrial fibrillation Qualified Codes: I48.2 - Chronic atrial fibrillation Admitting Information Admitting Physician Requests: Admit Raimundo Ng Jul 21, 2017 14:05
[2017-07-21 14:59] LABS: AUTOMATED NEUTROPHIL # 13.6 TH/MM3 (1.8-7.7); BASOPHIL # 0.1 TH/MM3 (0-0.2); BASOPHIL % 0.5 % (0.0-2.0); EOSINOPHIL # 0.2 TH/MM3 (0-0.4); EOSINOPHIL % 1.2 % (0.0-4.0); HEMATOCRIT 41.9 % (35.0-46.0); HEMO FLAGS DIFF FINAL; LYMPH % 8.7 % (9.0-44.0); LYMPHOCYTE # 1.4 TH/MM3 (1.0-4.8); MEAN CELL VOLUME 93.7 FL (80.0-100.0); MEAN CORPUSCULAR HEMOGLOBIN 30.9 PG (27.0-34.0); MEAN CORPUSCULAR HGB CONC 32.9 % (32.0-36.0); MONO % 5.7 % (0.0-8.0); NEUT % 83.9 % (16.0-70.0); PLATELET COUNT 206 TH/MM3 (150-450); RED BLOOD COUNT 4.47 MIL/MM3 (4.00-5.30); RED CELL DISTRIBUTION WIDTH 16.4 % (11.6-17.2); WHITE BLOOD COUNT 16.2 TH/MM3 (4.0-11.0)
--- NOTE | 2017-07-21 15:00 | RADRPT ---
EXAM DATE/TIME: 07/21/2017 14:43 [facility] COMPARISON: CHEST EXPIRATION ONLY, June 30, 2017, 9:16. CHEST SINGLE AP, June 29, 2017, 15:14. INDICATIONS : Short of breath. MEDICAL HISTORY : Congestive heart failure. Hypertension pleural effusion, atrial fibrillation, subdural hematoma SURGICAL HISTORY : None. ENCOUNTER: Initial ACUITY: 1 day PAIN SCORE: 0/10 LOCATION: Bilateral chest FINDINGS: A single portable frontal view of the chest shows improvement in the left lower lobe infiltrate. Mini mal consolidation remains in the lingula. A rounded area of consolidation is seen involving the later al segment of the right middle lobe. This is stable. No discernible effusions. Left costophrenic angl e is omitted from the film. Heart is mildly enlarged but stable. Bony structures are unremarkable. CONCLUSION: Stable exam with small areas of consolidation involving the lingula and right middle lobe. Mild cardi omegaly. Raad Meraz Jr., MD on July 21, 2017 at 14:56 Board Certified Radiologist. This report was verified electronically.
[2017-07-21 15:23] LABS: ALKALINE PHOSPHATASE 155 U/L (45-117); ALT (GPT) 46 U/L (10-53); APTT (PATIENT) 26.4 SEC (24.3-30.1); PROTHROMBIN TIME - PATIENT 11.1 SEC (9.8-11.6); TOTAL BILIRUBIN ADULT 0.6 MG/DL (0.2-1.0)
[2017-07-21 15:32] LABS: ANION GAP 7 MEQ/L (5-15); AST (GOT) 48 U/L (15-37); BICARBONATE 24.3 MEQ/L (21.0-32.0); BLOOD UREA NITROGEN 18 MG/DL (7-18); CHLORIDE 102 MEQ/L (98-107); GLOMERULAR FILTRATION RATE 101 ML/MIN (>89); MAGNESIUM 1.8 MG/DL (1.5-2.5); POTASSIUM 5.2 MEQ/L (3.5-5.1); SODIUM (NA) 133 MEQ/L (136-145)
[2017-07-21] MEDS ORDERED: VANCOMYCIN INJ 1,000 MG in SODIUM CHLOR 0.9% 250 ML INJ 250 ML IV ONE (15:45)
--- NOTE | 2017-07-21 15:57 | RADRPT ---
EXAM DATE/TIME: 07/21/2017 14:41 [facility] COMPARISON: US LEG BILATERAL VENOUS DOPPLER, May 12, 2016, 14:40. INDICATIONS : Bilateral leg edema. MEDICAL HISTORY : Congestive heart failure. Hypercholesterolemia. Diverticulitis. Goiter. CVA. Head trauma. Subdural he matoma. Afib. HTN. Inflammatory bowel disease. Hiatal hernia. GERD. UTI. Clotting problems. SURGICAL HISTORY : Cholecystectomy. Bilateral cataracts with prosthesis. Fistula fix. Colostomy placement. Bilateral kne e replacements. Blood transfusions. ENCOUNTER: Initial ACUITY: 3 days PAIN SCORE: 4/10 LOCATION: Bilateral leg. TECHNIQUE: Venous ultrasound of the left and right leg was performed from the inguinal ligament to the proximal calf. Real-time, color Doppler and spectral tracing, compression and augmentation techniques were us ed. FINDINGS: Bilateral DVT is observed. There is echogenic noncompressible material on the right extending from th e proximal superficial femoral vein into the trifurcation veins. This is occlusive in nature. On the left there is occlusive thrombus involving the mid and distal superficial femoral vein with nonocclus katrina thrombus involving the popliteal vein. CONCLUSION: Bilateral DVTs. Raad Meraz Jr., MD on July 21, 2017 at 15:36 Board Certified Radiologist. This report was verified electronically.
[2017-07-21 16:02] LABS: BACTERIA, URINE MANY /hpf; BLOOD, URINE TRACE (NEG); CALCIUM OXALATE CRYSTALS,URINE RARE /hpf; COMMENT (UR) CULTURE INDICATED; CULTURE IF INDICATED CULTURE INDICATED; GLUCOSE,URINE NEG (NEG); HYALINE CAST, URINE 16 /lpf (RARE); KETONE, URINE NEG (NEG); MUCUS URINE FEW /lpf (OCC); NITRITE,URINE NEG (NEG); PH, URINE 5.5 (5.0-8.5); SQUAMOUS EPITHELIAL CELL URINE 1 /hpf (0-5); URINE COLOR YELLOW (YELLW/STRAW)
[2017-07-21] MEDS ORDERED: IOHEXOL 350 MG/ML 10 ML VIAL (for RAD DIAG) IVCONTRAST ONE (16:21)
[2017-07-21] MEDS ORDERED: HEPARIN-D5W 25,000 U/250 ML 250 ML IV PRN (16:30)
--- NOTE | 2017-07-21 16:35 | RADRPT ---
EXAM DATE/TIME: 07/21/2017 16:10 [facility] COMPARISON: No previous studies available for comparison. INDICATIONS : Short of breath. Evaluate for embolism IV CONTRAST: 75 cc Omnipaque 350 (iohexol) IV RADIATION DOSE: 23.30 CTDIvol (mGy) MEDICAL HISTORY : Congestive hearrt failure. Hypertension. SURGICAL HISTORY : Cholecystectomy. ENCOUNTER: Initial ACUITY: 1 day PAIN SCALE: 0/10 LOCATION: chest TECHNIQUE: Volumetric scanning of the chest was performed using a pulmonary embolism protocol MIP images were re constructed. Using automated exposure control and adjustment of the mA and/or kV according to patien t size, radiation dose was kept as low as reasonably achievable to obtain optimal diagnostic quality images. DICOM format image data is available electronically for review and comparison. Follow-up recommendations for detected pulmonary nodules are based at a minimum on nodule size and pa tient risk factors according to Fleischner Society Guidelines. FINDINGS: PULMONARY ARTERIES: Abnormal. There is a large filling defect within the left pulmonary artery at the level of the hilum which extends into upper, lingula, and lower lobe segmental vessels. The left lower lobe pulmonary artery is also dilated with thrombus. On the right side, there is a large filling defect in the sneha on of the hilum which extends and distends the interlobar pulmonary artery with thin extension into t he right upper lobe posterior segment and into several segmental vessels right lower lung. LUNGS: Patchy areas of consolidation are scattered throughout the lateral right lower lung and posterior rig ht lower lung. These areas of opacity are clear the pleural surface. There are small areas of opaci ty in the lateral left lower lung measuring less than 1 cm. PLEURAE: Left pleural effusion measures 12 mm in size. No definite evidence of right pleural effusion. MEDIASTINUM: There is good visualization of the great vessels of the middle mediastinum. No evidence of mediastin al or hilar adenopathy/mass. CONCLUSION: 1. The study is positive for significant pulmonary embolism involving the distal left and right main pulmonary artery with extension into multiple segmental vessels involving left upper, left lingula, l eft lower, right middle, and right lower lobe vessels. 2. Left pleural effusion and scattered areas of patchy opacity in both lower lungs are nonspecific, p ossibly related to pulmonary infarctions. Multifocal areas of infection or malignancy cannot be excl uded. Recommend followup scanning to evaluate for evolution or resolution of these pulmonary abnorma lities. Raad Mercedes MD on July 21, 2017 at 16:28 Board Certified Radiologist. This report was verified electronically.
--- NOTE | 2017-07-21 16:40 | RADRPT ---
EXAM DATE/TIME: 07/21/2017 16:03 [facility] COMPARISON: CT BRAIN W/O CONTRAST, June 08, 2017, 20:13. CT BRAIN W/O CONTRAST, June 11, 2017, 7:51. INDICATIONS : Recent subdural hemorrhage. RADIATION DOSE: 41.84 CTDIvol (mGy) MEDICAL HISTORY : Congestive hearrt failure. Hypertension. SURGICAL HISTORY : Cholecystectomy. ENCOUNTER: Initial ACUITY: 1 day PAIN SCALE: 0/10 LOCATION: cranial TECHNIQUE: Multiple contiguous axial images were obtained of the head. Using automated exposure control and adj ustment of the mA and/or kV according to patient size, radiation dose was kept as low as reasonably a chievable to obtain optimal diagnostic quality images. DICOM format image data is available electro nically for review and comparison. FINDINGS: CEREBRUM: The ventricles are normal for age. No evidence of midline shift, mass lesion, hemorrhage or acute in farction. No extra-axial fluid collections are seen. POSTERIOR FOSSA: The cerebellum and brainstem are intact. The 4th ventricle is midline. The cerebellopontine angle i s unremarkable. EXTRACRANIAL: The visualized portion of the orbits is intact. SKULL: The calvaria is intact. No evidence of skull fracture. CONCLUSION: No acute findings. No residual right occipital or right tentorial subdural hematoma. Raad Mercedes MD on July 21, 2017 at 16:36 Board Certified Radiologist. This report was verified electronically.
[2017-07-21] MEDS ORDERED: ONDANSETRON HCL 4 MG/2 ML VIAL IVP PRN (17:15)
[2017-07-21] MEDS ORDERED: MAGNESIUM HYDROXIDE SUSP 30 ML CUP PO PRN (17:15)
[2017-07-21] MEDS ORDERED: ACETAMINOPHEN 325 MG TAB PO PRN (17:15)
[2017-07-21] MEDS ORDERED: SODIUM CHLORIDE 0.9% FLUSH 10 ML FLUSH IV FLUSH PRN (17:15)
[2017-07-21] MEDS ORDERED: NALOXONE HCL 0.4 MG/ML AMP IV PUSH PRN (17:15)
[2017-07-21] MEDS ORDERED: RESP: ALBUTEROL 2.5 MG/IPRATROPIUM 0.5 MG NEB (PRN) NEB (17:45)
[2017-07-21] MEDS: FUROSEMIDE 20 MG TAB PO SCH (18:21)
[2017-07-21] MEDS: ENOXAPARIN SODIUM 80 MG/0.8 ML SYRINGE SQ SCH (18:21)
--- NOTE | 2017-07-21 18:23 | PD.CONS ---
History of Present Illness Service Neurosurgery Consult Requested By Medicine service. Dr. Michael Reason for Consult Opinion regarding anticoagulation in patient with prior tentorial subdural hematoma, now with PE Primary Care Physician Leonardo Snow MD Diagnoses: History of Present Illness Ms. Padilla is a 76-year-old female who was previously seen by the undersigned after she was admitted to the hospital on May 29, 2017 with a left tentorial subdural hematoma, having fallen a couple times in the 2 days prior to admission. She was managed conservatively, eventually discharged to [facility] rehabilitation. She was readmitted to the hospital on 06/11/17 with respiratory failure, probable seizure, pneumonia. At that time a follow-up CT scan of the head revealed no new subdural hematoma or other intracranial pathology. She now presents to the emergency room with lower extremity pain symptoms, diagnosed with bilateral lower extremity DVT, pulmonary embolus, as well as UTI and persistent sacral decubitus ulcer. No complaint of significant headache dizziness blurred vision diplopia pain and weakness numbness in the upper extremities, or progressive difficulty with ambulation. Review of Systems Constitutional: COMPLAINS OF: Fatigue, DENIES: Fever Eyes: DENIES: Blurred vision, Diplopia Ears, nose, mouth, throat: DENIES: Hearing loss, Vertigo Respiratory: DENIES: Cough, Shortness of breath Cardiovascular: COMPLAINS OF: Palpitations, DENIES: Chest pain Gastrointestinal: DENIES: Abdominal pain, Nausea, Vomiting Musculoskeletal: COMPLAINS OF: Muscle aches, DENIES: Joint pain, Back pain, Neck pain Hematologic/lymphatic: DENIES: Bruising Neurologic: DENIES: Abnormal gait, Headache Psychiatric: DENIES: Confusion Past Family Social History Allergies: Coded Allergies: codeine (Verified Allergy, Severe, NAUSEA, 07/21/17) piperacillin (Verified Allergy, Intermediate, Rash, 07/21/17) tazobactam (Verified Allergy, Intermediate, Rash, 07/21/17) Past Medical History Chronic atrial fibrillation Hypertension Dyslipidemia Recent admission for pneumonia Recent admission for tentorial subdural hematoma Sleep apnea Hiatal hernia GERD Past Surgical History Cholecystectomy Bilateral knee arthroplasty Cataract surgery Colostomy Lower extremity embolectomy Reported Medications Reported Meds & Active Scripts Active Furosemide 20 Mg Tab 20 Mg PO BID@09,18 30 Days Keppra (Levetiracetam) 500 Mg Tab 500 Mg PO Q12HR Aspirin Low Strength (Aspirin) 81 Mg Chew 81 Mg CHEW DAILY 30 Days Cardizem CD 24 HR (Diltiazem CD 24 HR) 240 Mg Caper 240 Mg PO DAILY 30 Days Pantoprazole (Pantoprazole Sodium) 40 Mg Tab 40 Mg PO DAILY Klor-Con 10 (Potassium Chloride) 10 Meq Tab 20 Meq PO DAILY Duoneb (Ipratropium-Albuterol Neb) 0.5-2.5 Mg/3 Ml Neb 1 Ampule NEB Q4HR NEB PRN 30 Days Reported Digoxin 0.125 Mg Tab 0.125 Mg PO DAILY Duloxetine DR (Duloxetine HCl) 30 Mg Capdr 30 Mg PO DAILY Allergies Coded Allergies codeine (Verified Allergy, Severe, NAUSEA, 07/21/17) piperacillin (Verified Allergy, Intermediate, Rash, 07/21/17) tazobactam (Verified Allergy, Intermediate, Rash, 07/21/17) Family History Negative cancer, cardiac disease Social History Does not smoke cigarettes or drink alcohol Physical Exam Vital Signs Vital Signs Date Time Temp Pulse Resp B/P (MAP) Pulse Ox O2 Delivery O2 Flow Rate FiO2 07/21/17 17:19 96 07/21/17 13:45 18 95 Room Air 07/21/17 13:39 97.9 118 18 118/60 (79) 95 Room Air Physical Exam GENERAL: This is a well-nourished, well-developed patient, no apparent distress. SKIN: No abrasions, contusion, rash noted. Skin warm and dry. HEAD: Atraumatic. Normocephalic. No temporal or scalp tenderness. EYES: Sclerae are clear and nonicteric ENT: No facial edema or ecchymosis. No periorbital edema. No CSF otorrhea or rhinorrhea. No palpable facial fracture or deformity. NECK: Trachea midline. No cervical spine tenderness. CARDIOVASCULAR: Occasional irregular rhythm. Fluctuating heart rate 110-140 RESPIRATORY: Clear to auscultation. Breath sounds equal bilaterally. No wheezes , rales, or rhonchi. GASTROINTESTINAL: Abdomen soft, non-tender, nondistended. No hepato-splenomegaly , or palpable masses. No guarding. MUSCULOSKELETAL: Extremities without cyanosis, or edema. No joint tenderness, or edema noted. No calf tenderness. Dorsalis pedis pulses 2+ bilateral NEUROLOGICAL: Awake and alert Oriented X 3 Speech is clear Conversant and appropriate Follow simple commands well Answers questions appropriately Reasonable judgment and insight Recent and remote memory are intact No evidence of anxiety or depression Pupils are equal and reactive to accommodation. Extra-ocular movements, visual deshpande to confrontation, facial sensorimotor, tongue, palate, sternocleidomastoid testing, hearing to finger rub testing, and bilateral shoulder shrug are all intact. Sensation is intact to light touch in all extremities Strength normal major flexion and extension groups all extremities Jamie's absent bilaterally No ankle clonus Plantar responses absent bilateral Fine motor movements intact upper extremities Laboratory Laboratory Tests Test 07/21/17 14:15 07/21/17 15:45 White Blood Count 16.2 Red Blood Count 4.47 Hemoglobin 13.8 Hematocrit 41.9 Mean Corpuscular Volume 93.7 Mean Corpuscular Hemoglobin 30.9 Mean Corpuscular Hemoglobin Concent 32.9 Red Cell Distribution Width 16.4 Platelet Count 206 Mean Platelet Volume 8.5 Neutrophils (%) (Auto) 83.9 Lymphocytes (%) (Auto) 8.7 Monocytes (%) (Auto) 5.7 Eosinophils (%) (Auto) 1.2 Basophils (%) (Auto) 0.5 Neutrophils # (Auto) 13.6 Lymphocytes # (Auto) 1.4 Monocytes # (Auto) 0.9 Eosinophils # (Auto) 0.2 Basophils # (Auto) 0.1 CBC Comment DIFF FINAL Differential Comment Prothrombin Time 11.1 Prothromb Time International Ratio 1.0 Activated Partial Thromboplast Time 26.4 Blood Urea Nitrogen 18 Creatinine 0.58 Random Glucose 103 Total Protein 7.3 Albumin 2.7 Calcium Level 10.3 Magnesium Level 1.8 Alkaline Phosphatase 155 Aspartate Amino Transf (AST/SGOT) 48 Alanine Aminotransferase (ALT/SGPT) 46 Total Bilirubin 0.6 Sodium Level 133 Potassium Level 5.2 Chloride Level 102 Carbon Dioxide Level 24.3 Anion Gap 7 Estimat Glomerular Filtration Rate 101 Thyroid Stimulating Hormone 3rd Gen 1.520 Urine Color YELLOW Urine Turbidity HAZY Urine pH 5.5 Urine Specific [place] 1.020 Urine Protein TRACE Urine Glucose (UA) NEG Urine Ketones NEG Urine Occult Blood TRACE Urine Nitrite NEG Urine Bilirubin NEG Urine Urobilinogen LESS THAN 2.0 Urine Leukocyte Esterase LARGE Urine RBC 10 Urine WBC 110 Urine Squamous Epithelial Cells 1 Urine Calcium Oxalate Crystals RARE Urine Bacteria MANY Urine Hyaline Casts 16 Urine Mucus FEW Microscopic Urinalysis Comment CULTURE INDICATED Date/Time Source Procedure Growth Status 07/21/17 13:55 Blood Peripheral Aerobic Blood Culture Pending Received 07/21/17 13:55 Blood Peripheral Anaerobic Blood Culture Pending Received 07/21/17 15:45 Urine Clean Catch Urine Culture Pending Received 07/21/17 15:45 Wound Buttock Gram Stain - Final Resulted 07/21/17 15:45 Wound Buttock Wound Culture Pending Resulted Result Diagram: 07/21/17 1415 07/21/17 1415 Imaging 07/21/17 CT scan of the head reveals no significant abnormalities. No evidence of any residual or recurrent subdural hematoma. Chest X-Ray 07/21/17 1340 Signed Impressions: Service Date/Time: Friday, July 21, 2017 14:43 - CONCLUSION: Stable exam with small areas of consolidation involving the lingula and right middle lobe. Mild cardiomegaly. Raad Meraz Jr., MD Lower Extremity Ultrasound 07/21/17 0000 Signed Impressions: Service Date/Time: Friday, July 21, 2017 14:41 - CONCLUSION: Bilateral DVTs. Raad Meraz Jr., MD Head CT 07/21/17 0000 Signed Impressions: Service Date/Time: Friday, July 21, 2017 16:03 - CONCLUSION: No acute findings. No residual right occipital or right tentorial subdural hematoma. Raad Mercedes MD CT Angiography 07/21/17 0000 Signed Impressions: Service Date/Time: Friday, July 21, 2017 16:10 - CONCLUSION: 1. The study is positive for significant pulmonary embolism involving the distal left and right main pulmonary artery with extension into multiple segmental vessels involving left upper, left lingula, left lower, right middle, and right lower lobe vessels. 2. Left pleural effusion and scattered areas of patchy opacity in both lower lungs are nonspecific, possibly related to pulmonary infarctions. Multifocal areas of infection or malignancy cannot be excluded. Recommend followup scanning to evaluate for evolution or resolution of these pulmonary abnormalities. Raad Mercedes MD Assessment and Plan Assessment and Plan Impression: 1. Previous tentorial subdural hematoma-now resolved on present CT scan of . 2. Bilateral lower extremity DVT 3. Pulmonary embolus 4. UTI Recommendations: Although there may be a slight increased risk of recurrent subdural hematoma with anticoagulation in a patient with a prior subdural hematoma, the previous hematoma was relatively small and appeared posttraumatic rather spontaneous. There is no evidence of any significant residual hematoma on her CT scan . It is felt that the risk of recurrent subdural hematoma is very mild in this patient. Given the bilateral lower extremity DVT and PE, it is felt that it is reasonable to proceed with anticoagulation as indicated per medicine service. She does have a history of atrial fibrillation. Her gait is generally somewhat unsteady and she does fall occasionally. She can resume long-term anticoagulation as medically indicated, although her fall risk does increase the chance of a posttraumatic intracranial hemorrhage or subdural hematoma. Guilherme Peterson MD Jul 21, 2017 18:23
--- NOTE | 2017-07-21 18:23 | HHI.HP ---
HPI Service [facility] Hospitalists Primary Care Physician Leonardo Snow MD Admission Diagnosis acute PE, bilateral DVT, UTI, infected ulcer Chief Complaint: b/l DVT Travel History International Travel<30 Days: No Contact w/Intl Traveler <30 Da: No Traveled to Known Affected Are: No History of Present Illness Patient is a pleasant 76-year-old female patient had a recent prolonged hospitalization at [place] 06/11 through 07/01/17. During that hospitalization patient was initially admitted due to a small subdural hemorrhage. Patient was evaluated by neurosurgery and only conservative management was recommended. Unfortunately, patient's hospitalization was complicated by atrial fibrillation with rapid ventricular response. Patient also developed right lower lobe pneumonia with respiratory failure requiring mechanical ventilation. Prior to discharge patient underwent thoracentesis for pleural effusion. Patient was transferred to [facility] and then [facility]. Patient readmitted to [place] due to the ER due to outpatient study showing bilateral DVTs. Workup in the ER confirms bilateral DVTs and patient is also found to have bilateral pulmonary emboli. Case has been discussed with Dr. Peterson. He was the neurologist on the case during previous admission. Dr. Peterson will consult and advises anticoagulation. Patient is admitted to [facility] for further evaluation and treatment. Pt examined together with Lea Ivey PA-C. Review of Systems ROS Limitations: Poor Historian Constitutional: DENIES: Diaphoretic episodes, Fatigue, Fever, Weight gain, Weight loss, Chills, Dizziness, Change in appetite, Night Sweats Endocrine: DENIES: Heat/cold intolerance, Polydipsia, Polyuria, Polyphagia Eyes: DENIES: Blurred vision, Diplopia, Eye inflammation, Eye pain, Vision loss , Photosensitivity, Double Vision Ears, nose, mouth, throat: DENIES: Tinnitus, Hearing loss, Vertigo, Nasal discharge, Oral lesions, Throat pain, Hoarseness, Ear Pain, Running Nose, Epistaxis, Sinus Pain, Toothache, Odynophagia Respiratory: DENIES: Apneas, Cough, Snoring, Wheezing, Hemoptysis, Sputum production, Shortness of breath Cardiovascular: DENIES: Chest pain, Palpitations, Syncope, Dyspnea on Exertion , PND, Lower Extremity Edema, Orthopnea, Claudication Gastrointestinal: DENIES: Abdominal pain, Black stools, Bloody stools, BRB per rectum, Constipation, Diarrhea, GERD, Nausea, Reflux, Vomiting, Difficulty Swallowing, Anorexia Genitourinary: DENIES: Urinary frequency, Urinary incontinence, Urgency, Hematuria, Dysuria, Nocturia Musculoskeletal: DENIES: Joint pain, Muscle aches, Stiffness, Joint Swelling, Back pain, Neck pain Integumentary: DENIES: Abnormal pigmentation, Pruritus, Rash, Nail changes, Breast masses, Breast skin changes, Nipple discharge Hematologic/lymphatic: DENIES: Bruising, Lymphadenopathy Immunologic/allergic: DENIES: Eczema, Urticaria Neurologic: DENIES: Abnormal gait, Headache, Localized weakness, Paresthesias, Seizures, Speech Problems, Tremor, Poor Balance Psychiatric: DENIES: Anxiety, Confusion, Mood changes, Depression, Hallucinations, Agitation, Suicidal Ideation, Homicidal Ideation, Delusions, History of Bipolar, History of Schizophrenia Past Family Social History Past Medical History Recent right tentorium subdural hematoma/subcortical hemorrhage involving the right parietal field Recent treatment for left lower lobe pneumonia Gastroesophageal reflux disease Hypertension Dyslipidemia Chronic atrial fibrillation CHADVASC 5. Pt was off anticoagulation d/t recent admission with SDH Obstructive sleep apnea Hiatal hernia IBS History of splenic infarction History of DVT bilateral lower extremity status post embolectomy Depression Past Surgical History Lap-assisted loop colostomy with revision by Dr. Wetzel History of lower extremity embolectomy by Dr. Mo Cholecystectomy Bilateral total knee replacements with revision of left knee Cataracts Reported Medications Reported Meds & Active Scripts Active Furosemide 20 Mg Tab 20 Mg PO BID@09,18 30 Days Keppra (Levetiracetam) 500 Mg Tab 500 Mg PO Q12HR Aspirin Low Strength (Aspirin) 81 Mg Chew 81 Mg CHEW DAILY 30 Days Cardizem CD 24 HR (Diltiazem CD 24 HR) 240 Mg Caper 240 Mg PO DAILY 30 Days Pantoprazole (Pantoprazole Sodium) 40 Mg Tab 40 Mg PO DAILY Klor-Con 10 (Potassium Chloride) 10 Meq Tab 20 Meq PO DAILY Duoneb (Ipratropium-Albuterol Neb) 0.5-2.5 Mg/3 Ml Neb 1 Ampule NEB Q4HR NEB PRN 30 Days Reported Digoxin 0.125 Mg Tab 0.125 Mg PO DAILY Duloxetine DR (Duloxetine HCl) 30 Mg Capdr 30 Mg PO DAILY Allergies: Coded Allergies: codeine (Verified Allergy, Severe, NAUSEA, 07/21/17) piperacillin (Verified Allergy, Intermediate, Rash, 07/21/17) tazobactam (Verified Allergy, Intermediate, Rash, 07/21/17) Family History Noncontributory Social History Tobacco, alcohol and IV drug use negative Physical Exam Vital Signs Vital Signs Date Time Temp Pulse Resp B/P (MAP) Pulse Ox O2 Delivery O2 Flow Rate FiO2 07/21/17 17:19 96 07/21/17 13:45 18 95 Room Air 07/21/17 13:39 97.9 118 18 118/60 (79) 95 Room Air Physical Exam GENERAL: This is a well-nourished, well-developed patient, in no apparent distress. SKIN: No rashes, ecchymoses or lesions. Cool and dry. HEAD: Atraumatic. Normocephalic. No temporal or scalp tenderness. EYES: Pupils equal round and reactive. Extraocular motions intact. No scleral icterus. No injection or drainage. ENT: Nose without bleeding, purulent drainage or septal hematoma. Throat without erythema, tonsillar hypertrophy or exudate. Uvula midline. Airway patent. NECK: Trachea midline. No JVD or lymphadenopathy. Supple, nontender, no meningeal signs. CARDIOVASCULAR: Regular rate and rhythm without murmurs, gallops, or rubs. RESPIRATORY: Clear to auscultation. Breath sounds equal bilaterally. No wheezes , rales, or rhonchi. GASTROINTESTINAL: Abdomen soft, non-tender, nondistended. No hepato-splenomegaly , or palpable masses. No guarding. MUSCULOSKELETAL: Extremities without clubbing, cyanosis, or edema. No joint tenderness, effusion, or edema noted. No calf tenderness. Negative Homans sign bilaterally. NEUROLOGICAL: Awake and alert. Cranial nerves II through XII intact. Motor and sensory grossly within normal limits. Five out of 5 muscle strength in all muscle groups. Normal speech. Laboratory Laboratory Tests Test 07/21/17 14:15 07/21/17 15:45 White Blood Count 16.2 Red Blood Count 4.47 Hemoglobin 13.8 Hematocrit 41.9 Mean Corpuscular Volume 93.7 Mean Corpuscular Hemoglobin 30.9 Mean Corpuscular Hemoglobin Concent 32.9 Red Cell Distribution Width 16.4 Platelet Count 206 Mean Platelet Volume 8.5 Neutrophils (%) (Auto) 83.9 Lymphocytes (%) (Auto) 8.7 Monocytes (%) (Auto) 5.7 Eosinophils (%) (Auto) 1.2 Basophils (%) (Auto) 0.5 Neutrophils # (Auto) 13.6 Lymphocytes # (Auto) 1.4 Monocytes # (Auto) 0.9 Eosinophils # (Auto) 0.2 Basophils # (Auto) 0.1 CBC Comment DIFF FINAL Differential Comment Prothrombin Time 11.1 Prothromb Time International Ratio 1.0 Activated Partial Thromboplast Time 26.4 Blood Urea Nitrogen 18 Creatinine 0.58 Random Glucose 103 Total Protein 7.3 Albumin 2.7 Calcium Level 10.3 Magnesium Level 1.8 Alkaline Phosphatase 155 Aspartate Amino Transf (AST/SGOT) 48 Alanine Aminotransferase (ALT/SGPT) 46 Total Bilirubin 0.6 Sodium Level 133 Potassium Level 5.2 Chloride Level 102 Carbon Dioxide Level 24.3 Anion Gap 7 Estimat Glomerular Filtration Rate 101 Thyroid Stimulating Hormone 3rd Gen 1.520 Urine Color YELLOW Urine Turbidity HAZY Urine pH 5.5 Urine Specific [place] 1.020 Urine Protein TRACE Urine Glucose (UA) NEG Urine Ketones NEG Urine Occult Blood TRACE Urine Nitrite NEG Urine Bilirubin NEG Urine Urobilinogen LESS THAN 2.0 Urine Leukocyte Esterase LARGE Urine RBC 10 Urine WBC 110 Urine Squamous Epithelial Cells 1 Urine Calcium Oxalate Crystals RARE Urine Bacteria MANY Urine Hyaline Casts 16 Urine Mucus FEW Microscopic Urinalysis Comment CULTURE INDICATED Date/Time Source Procedure Growth Status 07/21/17 13:55 Blood Peripheral Aerobic Blood Culture Pending Received 07/21/17 13:55 Blood Peripheral Anaerobic Blood Culture Pending Received 07/21/17 15:45 Urine Clean Catch Urine Culture Pending Received 07/21/17 15:45 Wound Buttock Gram Stain - Final Resulted 07/21/17 15:45 Wound Buttock Wound Culture Pending Resulted Result Diagram: 07/21/17 1415 07/21/17 1415 Imaging Last Impressions Chest X-Ray 07/21/17 1340 Signed Impressions: Service Date/Time: Friday, July 21, 2017 14:43 - CONCLUSION: Stable exam with small areas of consolidation involving the lingula and right middle lobe. Mild cardiomegaly. Raad Meraz Jr., MD Lower Extremity Ultrasound 07/21/17 0000 Signed Impressions: Service Date/Time: Friday, July 21, 2017 14:41 - CONCLUSION: Bilateral DVTs. Raad Meraz Jr., MD Head CT 07/21/17 0000 Signed Impressions: Service Date/Time: Friday, July 21, 2017 16:03 - CONCLUSION: No acute findings. No residual right occipital or right tentorial subdural hematoma. Raad Mercedes MD CT Angiography 07/21/17 0000 Signed Impressions: Service Date/Time: Friday, July 21, 2017 16:10 - CONCLUSION: 1. The study is positive for significant pulmonary embolism involving the distal left and right main pulmonary artery with extension into multiple segmental vessels involving left upper, left lingula, left lower, right middle, and right lower lobe vessels. 2. Left pleural effusion and scattered areas of patchy opacity in both lower lungs are nonspecific, possibly related to pulmonary infarctions. Multifocal areas of infection or malignancy cannot be excluded. Recommend followup scanning to evaluate for evolution or resolution of these pulmonary abnormalities. Raad Mercedes MD Septic Shock Reassessment Heart: Regular rate and rhythm Lungs: Clear Skin: Warm Peripheral Pulses: Bounding Right Radial Bounding Left Radial Bounding Right Popliteal Bounding Left Popliteal Bounding Right Dorsalis Pedis Bounding Left Dorsalis Pedis Bounding Right Posterior Tibial Bounding Left Posterior Tibial Capillary Refill: Brisk Caprini VTE Risk Assessment Caprini VTE Risk Assessment: Mod/High Risk (score >= 2) Caprini Risk Assessment Model Point Value = 1 Point Value = 2 Point Value = 3 Point Value = 5 Age 41-60 Minor surgery BMI > 25 kg/m2 Swollen legs Varicose veins or History of unexplained or recurrent spontaneous Oral contraceptives or hormone replacement Sepsis (< 1 month) Serious lung disease, including pneumonia (< 1 month) Abnormal pulmonary function Acute myocardial infarction Congestive heart failure (< 1 month) History of inflammatory bowel disease Medical patient at bed rest Age 61-74 Arthroscopic surgery Major open surgery (> 45 min) Laparoscopic surgery (> 45 min) Malignancy Confined to bed (> 72 hours) Immobilizing plaster cast Central venous access Age >= 75 History of VTE Family history of VTE Factor V Leiden Prothrombin [id number] Lupus anticoagulant Anticardiolipin antibodies Elevated serum homocysteine Heparin-induced thrombocytopenia Other congenital or acquired thrombophilia Stroke (< 1 month) Elective arthroplasty Hip, pelvis, or leg fracture Acute spinal cord injury (< 1 month) Prophylaxis Regimen Total Risk Factor Score Risk Level Prophylaxis Regimen 0-1 Low Early ambulation 2 Moderate Order ONE of the following: *Sequential Compression Device (SCD) *Heparin 5000 units SQ BID 3-4 Higher Order ONE of the following medications: *Heparin 5000 units SQ TID *Enoxaparin/Lovenox 40 mg SQ daily (WT < 150 kg, CrCl > 30 mL/min) *Enoxaparin/Lovenox 30 mg SQ daily (WT < 150 kg, CrCl > 10-29 mL/min) *Enoxaparin/Lovenox 30 mg SQ BID (WT < 150 kg, CrCl > 30 mL/min) AND/OR *Sequential Compression Device (SCD) 5 or more Highest Order ONE of the following medications: *Heparin 5000 units SQ TID (Preferred with Epidurals) *Enoxaparin/Lovenox 40 mg SQ daily (WT < 150 kg, CrCl > 30 mL/min) *Enoxaparin/Lovenox 30 mg SQ daily (WT < 150 kg, CrCl > 10-29 mL/min) *Enoxaparin/Lovenox 30 mg SQ BID (WT < 150 kg, CrCl > 30 mL/min) AND *Sequential Compression Device (SCD) Assessment and Plan Problem List: (1) Pulmonary embolism ICD Codes: I26.99 - Other pulmonary embolism without acute cor pulmonale Status: Acute Plan: - Pt with underlying atrial fibrillation and DVT, but off anticoagulation d/t recent SDH - B/L LE US (07/21) --> b/l DVT - CTA (07/21) --> extensive b/l Pulm Emboli - Case reviewed with NSX, okay to start anticoagulation - lovenox 80 mcg subQ BID - supportive care (2) DVT (deep venous thrombosis) ICD Codes: I82.409 - Acute embolism and thrombosis of unspecified deep veins of unspecified lower extremity Status: Acute Plan: - see above (3) Decubitus skin ulcer ICD Codes: L89.90 - Pressure ulcer of unspecified site, unspecified stage Status: Acute Plan: - obtain wound care consult (4) Subdural hematoma ICD Codes: I62.00 - Nontraumatic subdural hemorrhage, unspecified Status: Acute Plan: - CT brain (07/21) --> NO acute findings - h/o SDH during prior admission - Dr. Peterson will consult (5) Atrial fibrillation ICD Codes: I48.91 - Unspecified atrial fibrillation Status: Chronic Plan: - cardizem, digoxin - review of telemetry shows afib with HR 110 to 120 with occasional spikes to 130 - will give Cardizem 60mg PO now (6) Seizure ICD Codes: R56.9 - Unspecified convulsions Plan: - continue keppra (7) HTN (hypertension) ICD Codes: I10 - Essential (primary) hypertension Status: Chronic (8) Depression ICD Codes: F32.9 - Major depressive disorder, single episode, unspecified Status: Chronic Plan: - castillo Physician Certification 2 Midnight Certification Type: Admission for Inpatient Services Order for Inpatient Services The services are ordered in accordance with Medicare regulations or non- Medicare payer requirements, as applicable. In the case of services not specified as inpatient-only, they are appropriately provided as inpatient services in accordance with the 2-midnight benchmark. Estimated LOS (days): 3 3 days is the estimated time the patient will need to remain in the hospital, assuming treatment plan goals are met and no additional complications. Post-Hospital Plan: Not yet determined Problem Qualifiers (1) Pulmonary embolism: Qualified Codes: I26.92 - Saddle embolus of pulmonary artery without acute cor pulmonale (2) DVT (deep venous thrombosis): Qualified Codes: I82.413 - Acute embolism and thrombosis of femoral vein, bilateral (3) Decubitus skin ulcer: Qualified Codes: L89.152 - Pressure ulcer of sacral region, stage 2 (4) Atrial fibrillation: Qualified Codes: I48.2 - Chronic atrial fibrillation (5) Depression: Qualified Codes: F32.9 - Major depressive disorder, single episode, unspecified Ivan Michael DO Jul 21, 2017 18:23
[2017-07-21] MEDS ORDERED: DILTIAZEM HCL 60 MG TAB PO ONE (19:30)
--- NOTE | 2017-07-21 21:32 | EKG ---
Date Performed: 07/21/2017 Time Performed: 18:28:27 PTAGE: 76 years EKG: ATRIAL FIBRILLATION WITH RAPID VENTRICULAR RESPONSE POSSIBLE RIGHT VENTRICULAR CONDUCTION D ELAY SEPTAL MYOCARDIAL INFARCTION MODERATE T-WAVE ABNORMALITY ABNORMAL ECG PREVIOUS TRACING : 07/21/2017 14.08 Compared to prior tracing no significant change DOCTOR: Oh Mancilla Interpretating Date/Time 07/21/2017 21:31:58
[2017-07-21] MEDS ORDERED: DILTIAZEM HCL 25 MG/5 ML VIAL IV STA (21:45)
[2017-07-21] MEDS ORDERED: METOPROLOL TARTRATE 25 MG TAB PO ONE (21:45)
[2017-07-21] MEDS: levETIRAcetam 500 MG TAB PO SCH (21:47)
[2017-07-21] MEDS: SODIUM CHLORIDE 0.9% FLUSH 10 ML FLUSH IV FLUSH SCH (21:48)
--- NOTE | 2017-07-21 22:01 | EKG ---
Date Performed: 07/21/2017 Time Performed: 14:08:08 PTAGE: 76 years EKG: ATRIAL FIBRILLATION WITH RAPID VENTRICULAR RESPONSE POSSIBLE RIGHT VENTRICULAR CONDUCTION D ELAY SEPTAL MYOCARDIAL INFARCTION MODERATE T-WAVE ABNORMALITY ABNORMAL ECG PREVIOUS TRACING : 06/19/2017 11.28 Compared to the previous tracing rate faster DOCTOR: Oh Mancilla Interpretating Date/Time 07/21/2017 22:00:53
[2017-07-21] MEDS ORDERED: DILTIAZEM 125 MG/NS 100 ML IV PRN ×2 (23:45)
[2017-07-21] MEDS ORDERED: DILTIAZEM HCL 25 MG/5 ML (Bolus) IV PUSH PRN (23:45)
[2017-07-22] VITALS (15 sets, daily range): BP systolic 102–137; BP diastolic 57–89; PULSE 84–145; RESP 20–28; TEMP 97.8–99.1; O2SAT 91–100
[2017-07-22] MEDS ORDERED: DILTIAZEM HCL 25 MG/5 ML (Bolus) IV PUSH ONE
[2017-07-22] MEDS: DILTIAZEM 125 MG/NS 100 ML IV PRN ×4 (00:06→22:04)
[2017-07-22 02:13] LABS: BASOPHIL # 0.1 TH/MM3 (0-0.2); BASOPHIL % 0.4 % (0.0-2.0); EOSINOPHIL # 0.5 TH/MM3 (0-0.4); EOSINOPHIL % 2.6 % (0.0-4.0); HEMATOCRIT 45.6 % (35.0-46.0); LYMPH % 2.6 % (9.0-44.0); LYMPHOCYTE # 0.5 TH/MM3 (1.0-4.8); MEAN CELL VOLUME 92.4 FL (80.0-100.0); MEAN CORPUSCULAR HEMOGLOBIN 31.3 PG (27.0-34.0); MEAN CORPUSCULAR HGB CONC 33.9 % (32.0-36.0); MONO % 2.5 % (0.0-8.0); NEUT % 91.9 % (16.0-70.0); PLATELET COUNT 197 TH/MM3 (150-450); RED BLOOD COUNT 4.93 MIL/MM3 (4.00-5.30); RED CELL DISTRIBUTION WIDTH 16.5 % (11.6-17.2); WHITE BLOOD COUNT 20.7 TH/MM3 (4.0-11.0)
[2017-07-22 02:16] LABS: HEMO FLAGS AUTO DIFF
[2017-07-22 02:18] LABS: APTT (PATIENT) 22.2 SEC (24.3-30.1); PROTHROMBIN TIME - PATIENT 11.4 SEC (9.8-11.6)
[2017-07-22 02:36] LABS: BANDS 13 % (0-6); EOSINOPHILS 1 % (0-4); NEUTROPHIL # MANUAL DIFF 19.5 TH/MM3 (1.8-7.7); POLYS (SEG NEUTROPHILS) 80 % (16-70); PROMYELOCYTES 1 % (0-0); WBC DIFF SAMPLE 100
[2017-07-22 02:37] LABS: PLATELET ESTIMATE SMEAR NORMAL (NORMAL); PLATELET MORPHOLOGY NORMAL (NORMAL); SCAN/DIFF FINAL DIFF MANUAL
[2017-07-22 02:43] LABS: BICARBONATE 22.5 MEQ/L (21.0-32.0); POTASSIUM 4.9 MEQ/L (3.5-5.1)
[2017-07-22] MEDS ORDERED: CHLORHEXIDINE GLUCONATE 2 % 1 PACK (2 CLOTHS)(extra cloths) TOPICAL PRN (02:45)
[2017-07-22] MEDS: CHLORHEXIDINE GLUCONATE 2 % 1 PACK (2 CLOTHS)(taper/protocol) TOPICAL SCH (04:00)
[2017-07-22] MEDS: ENOXAPARIN SODIUM 80 MG/0.8 ML SYRINGE SQ SCH ×2 (05:52→18:07)
[2017-07-22] MEDS ORDERED: POTASSIUM CHLORIDE 10 MEQ CONTROLLED RELEASE TAB PO SCH (09:00)
--- NOTE | 2017-07-22 09:01 | HHI.PR ---
Subjective Remarks doing ok. no new complaints Objective Vitals heart irreg lung cta few lower left lung rhonci abd s/nt ext mild pitting edema rle Vital Signs Date Time Temp Pulse Resp B/P (MAP) Pulse Ox O2 Delivery O2 Flow Rate FiO2 07/22/17 03:00 97.8 98 22 122/64 (83) 100 07/22/17 01:00 107 22 119/63 (81) 100 07/22/17 00:30 133 25 121/79 (93) 99 07/22/17 00:15 143 28 117/57 (77) 95 07/22/17 00:06 151 102/67 07/22/17 00:00 145 24 102/67 (79) 94 07/21/17 23:00 97.9 148 22 111/70 (84) 100 07/21/17 23:00 152 07/21/17 22:22 147 07/21/17 22:17 07/21/17 22:13 97.7 147 24 118/74 (89) 99 07/21/17 21:20 120 18 130/88 (102) 100 Nasal Cannula 2.00 07/21/17 21:15 97 07/21/17 18:22 110 18 141/81 (101) 96 Room Air 07/21/17 17:19 96 07/21/17 13:45 18 95 Room Air 07/21/17 13:39 97.9 118 18 118/60 (79) 95 Room Air Result Diagram: 07/22/17 0157 07/22/17 0157 Imaging Last Impressions Chest X-Ray 07/21/17 1340 Signed Impressions: Service Date/Time: Friday, July 21, 2017 14:43 - CONCLUSION: Stable exam with small areas of consolidation involving the lingula and right middle lobe. Mild cardiomegaly. Raad Meraz Jr., MD Lower Extremity Ultrasound 07/21/17 0000 Signed Impressions: Service Date/Time: Friday, July 21, 2017 14:41 - CONCLUSION: Bilateral DVTs. Raad Meraz Jr., MD Head CT 07/21/17 0000 Signed Impressions: Service Date/Time: Friday, July 21, 2017 16:03 - CONCLUSION: No acute findings. No residual right occipital or right tentorial subdural hematoma. Raad Mercedes MD CT Angiography 07/21/17 0000 Signed Impressions: Service Date/Time: Friday, July 21, 2017 16:10 - CONCLUSION: 1. The study is positive for significant pulmonary embolism involving the distal left and right main pulmonary artery with extension into multiple segmental vessels involving left upper, left lingula, left lower, right middle, and right lower lobe vessels. 2. Left pleural effusion and scattered areas of patchy opacity in both lower lungs are nonspecific, possibly related to pulmonary infarctions. Multifocal areas of infection or malignancy cannot be excluded. Recommend followup scanning to evaluate for evolution or resolution of these pulmonary abnormalities. Raad Mercedes MD A/P Problem List: (1) Pulmonary embolism ICD Codes: I26.99 - Other pulmonary embolism without acute cor pulmonale Status: Acute Plan: 1. bilateral pulmonary emboli. bilateral dvt lower ext's 2. afib with rvr 3. recent sdh with subsequent seizure and aspiration pna 4. sacral decubitus 5. general weakness. 6. uti Plan lovenox injection. risk of recurrent sdh reviewed with nsg cont cardizem gtt. wean off to keep HR under 100. po cardizem and dig. cont keppra for sz prophylaxis wound care for decub. ICU monitoring today. BP borderline low. supportive care. cipro and f/u urine cx (2) DVT (deep venous thrombosis) ICD Codes: I82.409 - Acute embolism and thrombosis of unspecified deep veins of unspecified lower extremity Status: Acute Plan: - see above (3) Decubitus skin ulcer ICD Codes: L89.90 - Pressure ulcer of unspecified site, unspecified stage Status: Acute Plan: - obtain wound care consult (4) Subdural hematoma ICD Codes: I62.00 - Nontraumatic subdural hemorrhage, unspecified Status: Acute Plan: - CT brain (07/21) --> NO acute findings - h/o SDH during prior admission - Dr. Peterson will consult (5) Atrial fibrillation ICD Codes: I48.91 - Unspecified atrial fibrillation Status: Chronic Plan: -see above (6) Seizure ICD Codes: R56.9 - Unspecified convulsions Plan: - continue keppra (7) HTN (hypertension) ICD Codes: I10 - Essential (primary) hypertension Status: Chronic (8) Depression ICD Codes: F32.9 - Major depressive disorder, single episode, unspecified Status: Chronic Plan: - cymbalta Problem Qualifiers (1) Pulmonary embolism: Qualified Codes: I26.92 - Saddle embolus of pulmonary artery without acute cor pulmonale (2) DVT (deep venous thrombosis): Qualified Codes: I82.413 - Acute embolism and thrombosis of femoral vein, bilateral (3) Decubitus skin ulcer: Qualified Codes: L89.152 - Pressure ulcer of sacral region, stage 2 (4) Atrial fibrillation: Qualified Codes: I48.2 - Chronic atrial fibrillation (5) Depression: Qualified Codes: F32.9 - Major depressive disorder, single episode, unspecified Armando Garcia MD Jul 22, 2017 09:01
[2017-07-22] MEDS ORDERED: CIPROFLOXACIN 250 MG TAB PO ONE (09:15)
[2017-07-22] MEDS: DULoxetine HCl DR 30 MG CAP PO SCH (09:18)
[2017-07-22] MEDS: FUROSEMIDE 20 MG TAB PO SCH ×2 (09:18→18:07)
[2017-07-22] MEDS: DILTIAZEM-CD 240 MG CAP ER PO SCH (09:19)
[2017-07-22] MEDS: SODIUM CHLORIDE 0.9% FLUSH 10 ML FLUSH IV FLUSH SCH ×2 (09:19→22:05)
[2017-07-22] MEDS: PANTOPRAZOLE SOD 40 MG DELAYED RELEASE TAB PO SCH (09:19)
[2017-07-22] MEDS: levETIRAcetam 500 MG TAB PO SCH ×2 (09:19→22:05)
[2017-07-22] MEDS: DIGOXIN 0.125 MG TAB PO SCH (11:14)
[2017-07-22] MEDS: diphenhydrAMINE HCL 25 MG CAP PO PRN (13:38)
--- NOTE | 2017-07-22 15:28 | PD.WCN.NOT ---
Wound Consult Description: Consult placed for wound management of sacral decub per Dr Michael. Communicated with: AGUSTÍN Bruner RN Recommendation: Continue to reposition patient every 2 hours and PRN for comfort Continue to apply Calazime BID and PRN for moisture Additional Information: Spoke with RN's taking care of patient. There are no wounds noted to the patient sacral or coccyx areas. 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 Patient has moisture to which Calazime was applied per RN. Nubia Harvey [facility] Jul 22, 2017 15:28
[2017-07-22] MEDS: CIPROFLOXACIN 250 MG TAB PO SCH (22:04)
[2017-07-23] VITALS (10 sets, daily range): BP systolic 121–148; BP diastolic 62–71; PULSE 85–98; RESP 16–22; TEMP 98–98.6; O2SAT 86–99
[2017-07-23] MEDS: CHLORHEXIDINE GLUCONATE 2 % 1 PACK (2 CLOTHS)(taper/protocol) TOPICAL SCH (04:00)
[2017-07-23] MEDS: ENOXAPARIN SODIUM 80 MG/0.8 ML SYRINGE SQ SCH ×2 (06:00→17:06)
[2017-07-23] MEDS: diphenhydrAMINE HCL 25 MG CAP PO PRN ×3 (06:08→21:44)
[2017-07-23 07:20] LABS: AUTOMATED NEUTROPHIL # 11.9 TH/MM3 (1.8-7.7); BASOPHIL % 0.2 % (0.0-2.0); EOSINOPHIL # 1.4 TH/MM3 (0-0.4); EOSINOPHIL % 9.8 % (0.0-4.0); HEMATOCRIT 45.2 % (35.0-46.0); LYMPH % 3.2 % (9.0-44.0); LYMPHOCYTE # 0.5 TH/MM3 (1.0-4.8); MEAN CELL VOLUME 92.4 FL (80.0-100.0); MEAN CORPUSCULAR HGB CONC 32.5 % (32.0-36.0); MONO % 2.3 % (0.0-8.0); NEUT % 84.5 % (16.0-70.0); PLATELET COUNT 198 TH/MM3 (150-450); RED BLOOD COUNT 4.89 MIL/MM3 (4.00-5.30); RED CELL DISTRIBUTION WIDTH 16.5 % (11.6-17.2); WHITE BLOOD COUNT 14.1 TH/MM3 (4.0-11.0)
[2017-07-23 07:27] LABS: HEMO FLAGS AUTO DIFF
[2017-07-23 07:48] LABS: BICARBONATE 22.1 MEQ/L (21.0-32.0); POTASSIUM 3.8 MEQ/L (3.5-5.1)
[2017-07-23 10:02] LABS: BANDS 16 % (0-6); EOSINOPHILS 6 % (0-4); MYELOCYTES 1 % (0-0); NEUTROPHIL # MANUAL DIFF 11.8 TH/MM3 (1.8-7.7); POLYS (SEG NEUTROPHILS) 67 % (16-70); WBC DIFF SAMPLE 100
[2017-07-23 10:03] LABS: OVALOCYTES 1+ (NORMAL); PLATELET ESTIMATE SMEAR NORMAL (NORMAL); PLATELET MORPHOLOGY NORMAL (NORMAL); SCAN/DIFF FINAL DIFF MANUAL
--- NOTE | 2017-07-23 10:24 | HHI.PR ---
Subjective Remarks No new complaints. Pt denies chest pain, palpitations, or SOB. Objective Vitals Vital Signs Date Time Temp Pulse Resp B/P (MAP) Pulse Ox O2 Delivery O2 Flow Rate FiO2 07/23/17 07:58 99 21 07/23/17 06:00 87 07/23/17 04:00 98.4 89 21 138/62 (87) 99 07/23/17 04:00 97 07/23/17 02:00 98 07/23/17 00:00 94 07/23/17 00:00 98.6 94 22 130/63 (85) 97 07/22/17 22:04 98 135/73 07/22/17 22:00 98 07/22/17 20:00 106 07/22/17 20:00 98.3 106 22 137/89 (105) 91 07/22/17 19:36 97 07/22/17 18:00 93 07/22/17 16:00 90 07/22/17 16:00 98.3 96 20 127/58 (81) 96 07/22/17 14:00 87 07/22/17 12:00 99.1 84 26 108/59 (75) 96 07/22/17 12:00 99 07/22/17 11:30 99 Nasal Cannula 2.00 Result Diagram: 07/23/17 0600 07/23/17 0600 Imaging Last Impressions Chest X-Ray 07/21/17 1340 Signed Impressions: Service Date/Time: Friday, July 21, 2017 14:43 - CONCLUSION: Stable exam with small areas of consolidation involving the lingula and right middle lobe. Mild cardiomegaly. Raad Meraz Jr., MD Lower Extremity Ultrasound 07/21/17 0000 Signed Impressions: Service Date/Time: Friday, July 21, 2017 14:41 - CONCLUSION: Bilateral DVTs. Raad Meraz Jr., MD Head CT 07/21/17 0000 Signed Impressions: Service Date/Time: Friday, July 21, 2017 16:03 - CONCLUSION: No acute findings. No residual right occipital or right tentorial subdural hematoma. Raad Mercedes MD CT Angiography 07/21/17 0000 Signed Impressions: Service Date/Time: Friday, July 21, 2017 16:10 - CONCLUSION: 1. The study is positive for significant pulmonary embolism involving the distal left and right main pulmonary artery with extension into multiple segmental vessels involving left upper, left lingula, left lower, right middle, and right lower lobe vessels. 2. Left pleural effusion and scattered areas of patchy opacity in both lower lungs are nonspecific, possibly related to pulmonary infarctions. Multifocal areas of infection or malignancy cannot be excluded. Recommend followup scanning to evaluate for evolution or resolution of these pulmonary abnormalities. Raad Mercedes MD Objective Remarks GENERAL: This is a well-nourished, well-developed patient, in no apparent distress. CARDIOVASCULAR: irregular RESPIRATORY: Clear to auscultation. Breath sounds equal bilaterally. No wheezes , rales, or rhonchi. GASTROINTESTINAL: Abdomen soft, non-tender, nondistended. Normal active bowel sounds MUSCULOSKELETAL: Extremities without clubbing, cyanosis, or edema. NEURO: Alert & Oriented x4 to person, place, time, situation. Moves all ext x4 A/P Problem List: (1) Pulmonary embolism ICD Codes: I26.99 - Other pulmonary embolism without acute cor pulmonale Status: Acute Plan: - recent hospitalization d/t SDH, conservative mgmt - repeat CT brain (07/21) No acute findings. No residual right occipital or right tentorial subdural hematoma - b/l LE US (07/21) --> Bilateral DVTs. - CTA (07/21) --> 1. The study is positive for significant pulmonary embolism involving the distal left and right main pulmonary artery with extension into multiple segmental vessels involving left upper, left lingula, left lower, right middle, and right lower lobe vessels. 2. Left pleural effusion and scattered areas of patchy opacity in both lower lungs are nonspecific, possibly related to pulmonary infarctions. Multifocal areas of infection or malignancy cannot be excluded. Recommend followup scanning to evaluate for evolution or resolution of these pulmonary abnormalities. - Case d/w Neurosurgery (07/21). Okay to anticoagulate - continue lovenox - will likely transition to oral anticoagulant 07/24 - supportive care (2) DVT (deep venous thrombosis) ICD Codes: I82.409 - Acute embolism and thrombosis of unspecified deep veins of unspecified lower extremity Status: Acute Plan: - see above (3) Decubitus skin ulcer ICD Codes: L89.90 - Pressure ulcer of unspecified site, unspecified stage Status: Acute Plan: - gram negative rods growing in wound culture, continue to follow - wound care follow (4) Subdural hematoma ICD Codes: I62.00 - Nontraumatic subdural hemorrhage, unspecified Status: Acute Plan: - comgmt with Neurosurgery - CT brain (07/21) --> NO acute findings - h/o SDH during prior admission - continue keppra for seizure prophylaxis (5) Atrial fibrillation ICD Codes: I48.91 - Unspecified atrial fibrillation Status: Chronic Plan: - Pt developed RVR - on Cardizem gtt, likely will wean to off today - continue PO digoxin and cardizem (6) HTN (hypertension) ICD Codes: I10 - Essential (primary) hypertension Status: Chronic (7) Depression ICD Codes: F32.9 - Major depressive disorder, single episode, unspecified Status: Chronic Plan: - cymbalta (8) Generalized weakness ICD Codes: R53.1 - Weakness Plan: - physical therapy - anticipate discharge in 3-4 days, SNF vs acute rehab? (9) UTI (urinary tract infection) ICD Codes: N39.0 - Urinary tract infection, site not specified Status: Acute Plan: - gram negative rods growing in urine cx, continue to follow - ciprofloxin (10) Colostomy present ICD Codes: Z93.3 - Colostomy status Plan: - family concerned about anal leakage - CRS now following - appreciate input from Dr. Wetzel - Pt to undergo Sigmoidoscopy Problem Qualifiers (1) Pulmonary embolism: Qualified Codes: I26.92 - Saddle embolus of pulmonary artery without acute cor pulmonale (2) DVT (deep venous thrombosis): Qualified Codes: I82.413 - Acute embolism and thrombosis of femoral vein, bilateral (3) Decubitus skin ulcer: Qualified Codes: L89.152 - Pressure ulcer of sacral region, stage 2 (4) Atrial fibrillation: Qualified Codes: I48.2 - Chronic atrial fibrillation (5) HTN (hypertension): Qualified Codes: I10 - Essential (primary) hypertension (6) Depression: Qualified Codes: F32.9 - Major depressive disorder, single episode, unspecified (7) UTI (urinary tract infection): Qualified Codes: N30.00 - Acute cystitis without hematuria Ivan Michael DO Jul 23, 2017 10:24
[2017-07-23] MEDS: DULoxetine HCl DR 30 MG CAP PO SCH (10:34)
[2017-07-23] MEDS: DILTIAZEM-CD 240 MG CAP ER PO SCH (10:34)
[2017-07-23] MEDS: levETIRAcetam 500 MG TAB PO SCH ×2 (10:34→21:44)
[2017-07-23] MEDS: FUROSEMIDE 20 MG TAB PO SCH ×2 (10:34→17:06)
[2017-07-23] MEDS: PANTOPRAZOLE SOD 40 MG DELAYED RELEASE TAB PO SCH (10:34)
[2017-07-23] MEDS: DIGOXIN 0.125 MG TAB PO SCH (10:35)
[2017-07-23] MEDS: SODIUM CHLORIDE 0.9% FLUSH 10 ML FLUSH IV FLUSH SCH ×2 (10:35→21:44)
[2017-07-23] MEDS: CIPROFLOXACIN 250 MG TAB PO SCH ×2 (10:35→21:44)
[2017-07-23] MEDS ORDERED: diphenhydrAMINE HCL 50 MG/ML VIAL IV PUSH ONE (17:00)
--- NOTE | 2017-07-23 22:38 | HHI.PR ---
Subjective Remarks C/R Surg afebrile, VSS UO adeq judith PO still mod rectal drainage Objective - Vital Signs Date Time Temp Pulse Resp B/P (MAP) Pulse Ox O2 Delivery O2 Flow Rate FiO2 07/23/17 22:00 85 07/23/17 20:00 98.0 19 148/64 (92) 96 07/23/17 19:27 Nasal Cannula 2.00 07/23/17 07:58 21 Result Diagram: 07/23/1759907/23/17 06 Objective Remarks PE alert Abd - soft, non-tender, stoma pink Rectal - mucus, almost exudate from rectum, non-tender A/P Assessment and Plan Imp: rectal discharge - will set-up sigmoidoscopy to irrigate rectosigm, maybe diversion colitis, or poss c.diff no prep Alejandro Wetzel MD Jul 23, 2017 22:38
[2017-07-24] VITALS (9 sets, daily range): BP systolic 124–153; BP diastolic 61–65; PULSE 80–86; RESP 18–21; TEMP 97.6–98.2; O2SAT 96–97
[2017-07-24] MEDS: ENOXAPARIN SODIUM 80 MG/0.8 ML SYRINGE SQ SCH (05:51)
[2017-07-24 06:57] LABS: AUTOMATED NEUTROPHIL # 6.8 TH/MM3 (1.8-7.7); BASOPHIL % 0.2 % (0.0-2.0); EOSINOPHIL # 1.1 TH/MM3 (0-0.4); EOSINOPHIL % 12.7 % (0.0-4.0); HEMATOCRIT 42.7 % (35.0-46.0); HEMO FLAGS DIFF FINAL; LYMPH % 6.4 % (9.0-44.0); LYMPHOCYTE # 0.6 TH/MM3 (1.0-4.8); MEAN CELL VOLUME 92.6 FL (80.0-100.0); MEAN CORPUSCULAR HEMOGLOBIN 30.6 PG (27.0-34.0); MONO % 2.4 % (0.0-8.0); NEUT % 78.3 % (16.0-70.0); PLATELET COUNT 204 TH/MM3 (150-450); RED BLOOD COUNT 4.61 MIL/MM3 (4.00-5.30); RED CELL DISTRIBUTION WIDTH 16.4 % (11.6-17.2); WHITE BLOOD COUNT 8.7 TH/MM3 (4.0-11.0)
[2017-07-24 07:17] LABS: BICARBONATE 24.8 MEQ/L (21.0-32.0); MAGNESIUM 1.7 MG/DL (1.5-2.5); POTASSIUM 3.4 MEQ/L (3.5-5.1)
[2017-07-24] MEDS ORDERED: DO NOT ADM ANY ANTICOAGULANT DRUGS PRN (07:36)
[2017-07-24] MEDS: cefTRIAXone INJ 1,000 MG in SODIUM CHLORIDE 0.9% INJ 100 ML IV SCH (09:39)
[2017-07-24] MEDS: PANTOPRAZOLE SOD 40 MG DELAYED RELEASE TAB PO SCH (09:39)
[2017-07-24] MEDS: DILTIAZEM-CD 240 MG CAP ER PO SCH (09:39)
[2017-07-24] MEDS: FUROSEMIDE 20 MG TAB PO SCH ×2 (09:39→18:10)
[2017-07-24] MEDS: DIGOXIN 0.125 MG TAB PO SCH (09:39)
[2017-07-24] MEDS: levETIRAcetam 500 MG TAB PO SCH ×2 (09:39→21:37)
[2017-07-24] MEDS: DULoxetine HCl DR 30 MG CAP PO SCH (09:39)
[2017-07-24] MEDS: SODIUM CHLORIDE 0.9% FLUSH 10 ML FLUSH IV FLUSH SCH ×2 (09:40→21:26)
--- NOTE | 2017-07-24 11:24 | HHI.PR ---
Subjective Remarks No new complaints. Objective Vitals Vital Signs Date Time Temp Pulse Resp B/P (MAP) Pulse Ox O2 Delivery O2 Flow Rate FiO2 07/24/17 08:15 97.6 81 23 143/61 (88) 97 Nasal Cannula 2 07/24/17 08:00 81 25 136/60 (85) 100 Nasal Cannula 2 07/24/17 07:45 76 12 108/55 (72) 100 Nasal Cannula 2 07/24/17 07:37 98.1 76 12 98/56 (70) 100 Nasal Cannula 2 07/24/17 06:00 82 07/24/17 04:00 82 07/24/17 04:00 97.6 82 18 153/65 (94) 97 07/24/17 02:00 83 07/24/17 00:00 98.2 83 21 133/61 (85) 97 07/24/17 00:00 83 07/23/17 22:00 85 07/23/17 20:00 98.0 85 19 148/64 (92) 96 07/23/17 20:00 85 07/23/17 19:27 99 Nasal Cannula 2.00 07/23/17 12:00 98.3 94 20 121/68 (85) 86 07/24/17 07/24/17 07/25/17 15:00 23:00 07:00 Intake Total 250 ml Output Total 0 ml Balance 250 ml Intake Oral 0 ml IV Total 0 ml Other 250 ml Output Urine Total 0 ml # Bowel Movements 1 Result Diagram: 07/24/17 0553 07/24/17 0553 Imaging Last Impressions Chest X-Ray 07/21/17 1340 Signed Impressions: Service Date/Time: Friday, July 21, 2017 14:43 - CONCLUSION: Stable exam with small areas of consolidation involving the lingula and right middle lobe. Mild cardiomegaly. Raad Meraz Jr., MD Lower Extremity Ultrasound 07/21/17 0000 Signed Impressions: Service Date/Time: Friday, July 21, 2017 14:41 - CONCLUSION: Bilateral DVTs. Raad Meraz Jr., MD Head CT 07/21/17 0000 Signed Impressions: Service Date/Time: Friday, July 21, 2017 16:03 - CONCLUSION: No acute findings. No residual right occipital or right tentorial subdural hematoma. Raad Mercedes MD CT Angiography 07/21/17 0000 Signed Impressions: Service Date/Time: Friday, July 21, 2017 16:10 - CONCLUSION: 1. The study is positive for significant pulmonary embolism involving the distal left and right main pulmonary artery with extension into multiple segmental vessels involving left upper, left lingula, left lower, right middle, and right lower lobe vessels. 2. Left pleural effusion and scattered areas of patchy opacity in both lower lungs are nonspecific, possibly related to pulmonary infarctions. Multifocal areas of infection or malignancy cannot be excluded. Recommend followup scanning to evaluate for evolution or resolution of these pulmonary abnormalities. Raad Mercedes MD Objective Remarks GENERAL: This is a well-nourished, well-developed patient, in no apparent distress. CARDIOVASCULAR: irregular RESPIRATORY: Clear to auscultation. Breath sounds equal bilaterally. No wheezes , rales, or rhonchi. GASTROINTESTINAL: Abdomen soft, non-tender, nondistended. Normal active bowel sounds MUSCULOSKELETAL: Extremities without clubbing, cyanosis, or edema. NEURO: Alert & Oriented x4 to person, place, time, situation. Moves all ext x4 A/P Problem List: (1) Pulmonary embolism ICD Codes: I26.99 - Other pulmonary embolism without acute cor pulmonale Status: Acute Plan: - recent hospitalization d/t SDH, conservative mgmt - repeat CT brain (07/21) No acute findings. No residual right occipital or right tentorial subdural hematoma - b/l LE US (07/21) --> Bilateral DVTs. - CTA (07/21) --> 1. The study is positive for significant pulmonary embolism involving the distal left and right main pulmonary artery with extension into multiple segmental vessels involving left upper, left lingula, left lower, right middle, and right lower lobe vessels. 2. Left pleural effusion and scattered areas of patchy opacity in both lower lungs are nonspecific, possibly related to pulmonary infarctions. Multifocal areas of infection or malignancy cannot be excluded. Recommend followup scanning to evaluate for evolution or resolution of these pulmonary abnormalities. - Case d/w Neurosurgery (07/21). Okay to anticoagulate - change lovenox to xarelto - supportive care (2) DVT (deep venous thrombosis) ICD Codes: I82.409 - Acute embolism and thrombosis of unspecified deep veins of unspecified lower extremity Status: Acute Plan: - see above (3) Atrial fibrillation ICD Codes: I48.91 - Unspecified atrial fibrillation Status: Chronic Plan: - Pt developed RVR - weaned off Cardizem gtt - continue PO digoxin and cardizem (4) Decubitus skin ulcer ICD Codes: L89.90 - Pressure ulcer of unspecified site, unspecified stage Status: Acute Plan: - wound cx: E. Coli - Start Rocephin (5) Subdural hematoma ICD Codes: I62.00 - Nontraumatic subdural hemorrhage, unspecified Status: Acute Plan: - comgmt with Neurosurgery - CT brain (07/21) --> NO acute findings - h/o SDH during prior admission - continue keppra for seizure prophylaxis (6) HTN (hypertension) ICD Codes: I10 - Essential (primary) hypertension Status: Chronic Plan: - cardizem (7) Depression ICD Codes: F32.9 - Major depressive disorder, single episode, unspecified Status: Chronic Plan: - cymbalta (8) Generalized weakness ICD Codes: R53.1 - Weakness Plan: - physical therapy - anticipate discharge to SNF 07/27 (9) UTI (urinary tract infection) ICD Codes: N39.0 - Urinary tract infection, site not specified Status: Acute Plan: - gram negative rods growing in urine cx, continue to follow - ciprofloxin (10) E. coli UTI ICD Codes: N39.0 - Urinary tract infection, site not specified; B96.20 - Unspecified Escherichia coli [E. coli] as the cause of diseases classified elsewhere Status: Acute Plan: - rocephin (11) Colostomy present ICD Codes: Z93.3 - Colostomy status Plan: - comgmt with Dr. Wetzel - family concerned about anal leakage - case d/w Dr. Wetzel (07/24) - Pt underwent Sigmoidoscopy (07/24), colon appears healthy - some diversion colitis, enema every few weeks - possible colostomy reversal once more stable Problem Qualifiers (1) Pulmonary embolism: Qualified Codes: I26.92 - Saddle embolus of pulmonary artery without acute cor pulmonale (2) DVT (deep venous thrombosis): Qualified Codes: I82.413 - Acute embolism and thrombosis of femoral vein, bilateral (3) Atrial fibrillation: Qualified Codes: I48.2 - Chronic atrial fibrillation (4) Decubitus skin ulcer: Qualified Codes: L89.152 - Pressure ulcer of sacral region, stage 2 (5) HTN (hypertension): Qualified Codes: I10 - Essential (primary) hypertension (6) Depression: Qualified Codes: F32.9 - Major depressive disorder, single episode, unspecified (7) UTI (urinary tract infection): Qualified Codes: N30.00 - Acute cystitis without hematuria Ivan Michael DO Jul 24, 2017 11:24
[2017-07-24] MEDS ORDERED: LIDOCAINE HCL 1% PF 5 ML AMPULE OTHER ONE (14:30)
[2017-07-24] MEDS ORDERED: PROPOFOL 200 MG/20 ML AMP IV ONE (14:30)
[2017-07-24] MEDS: RIVAROXABAN 15 MG TAB PO SCH (21:25)
[2017-07-25] VITALS (8 sets, daily range): BP systolic 118–143; BP diastolic 60–74; PULSE 66–110; RESP 17–20; TEMP 97–98.3; O2SAT 96–100
--- NOTE | 2017-07-25 00:07 | MR ---
cc: CODY HO M.D. DATE July 24, 2017 PREOPERATIVE DIAGNOSIS Rectal discharge, possible diversion colitis. PROCEDURE Limited colonoscopy to transverse colon. 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 SURGEON Dr. Ho. PROCEDURE The patient was placed in the left lateral decubitus position. Rectal exam confirmed the emptiness of the rectal vault. Olympus gastroscope was introduced into the rectum and advanced easily under direct vision through the proximal colon until the area of the transverse colon was visualized. The scope was gradually withdrawn noting a lot of mucus and exudate across the bowel. There were nonspecific changes to the mucosa consistent with diversion but no evidence of acute mucosal inflammation. The diverticulosis in the distal left colon and sigmoid were pretty unremarkable. A fair amount of old stool and inspissated mucus was also present. This was irrigated copiously and removed with the suction channel of the colonoscope. The anastomosis in the proximal rectum was evaluated and felt to be pretty unremarkable. No pseudomembranes were seen. No luminal narrowing was noted. The patient tolerated the procedure quite well and was brought to recovery room in stable condition. MD YONATAN Reyes/ROGER /10:39 PM /11:42 PM
[2017-07-25] MEDS: DULoxetine HCl DR 30 MG CAP PO SCH (09:00)
[2017-07-25] MEDS: SODIUM CHLORIDE 0.9% FLUSH 10 ML FLUSH IV FLUSH SCH ×2 (09:00→23:09)
[2017-07-25] MEDS ORDERED: POTASSIUM CHLORIDE 20 MEQ CONTROLLED RELEASE TAB PO ONE (09:00)
[2017-07-25] MEDS: RIVAROXABAN 15 MG TAB PO SCH ×2 (09:00→23:09)
[2017-07-25] MEDS: DILTIAZEM-CD 240 MG CAP ER PO SCH (09:58)
[2017-07-25] MEDS: DIGOXIN 0.125 MG TAB PO SCH (09:59)
[2017-07-25] MEDS: PANTOPRAZOLE SOD 40 MG DELAYED RELEASE TAB PO SCH (09:59)
[2017-07-25] MEDS: FUROSEMIDE 20 MG TAB PO SCH ×2 (10:00→17:40)
[2017-07-25] MEDS: cefTRIAXone INJ 1,000 MG in SODIUM CHLORIDE 0.9% INJ 100 ML IV SCH (10:00)
[2017-07-25] MEDS: levETIRAcetam 500 MG TAB PO SCH ×2 (10:01→23:09)
--- NOTE | 2017-07-25 12:00 | HHI.PR ---
Subjective Remarks Patient resting in bed with family members at bedside offers no specific complaints appetite better today Objective Vitals Vital Signs Date Time Temp Pulse Resp B/P (MAP) Pulse Ox O2 Delivery O2 Flow Rate FiO2 07/25/17 10:23 100 Nasal Cannula 2.00 07/25/17 05:21 97.8 81 17 118/62 (80) 97 07/25/17 04:00 Room Air 07/25/17 00:24 98.0 82 17 122/60 (80) 96 07/25/17 00:00 Room Air 07/24/17 20:56 98.2 86 18 124/61 (82) 96 07/24/17 20:13 84 07/24/17 19:20 Room Air 07/24/17 17:00 97.9 84 18 151/65 (93) 97 07/24/17 16:00 80 07/24/17 14:42 97 Nasal Cannula 2.00 Result Diagram: 07/24/17 0553 07/24/17 0553 Other Results Laboratory Tests Test 07/23/17 06:00 07/24/17 05:53 White Blood Count 14.1 TH/MM3 8.7 TH/MM3 Red Blood Count 4.89 MIL/MM3 4.61 MIL/MM3 Hemoglobin 14.7 GM/DL 14.1 GM/DL Hematocrit 45.2 % 42.7 % Mean Corpuscular Volume 92.4 FL 92.6 FL Mean Corpuscular Hemoglobin 30.0 PG 30.6 PG Mean Corpuscular Hemoglobin Concent 32.5 % 33.0 % Red Cell Distribution Width 16.5 % 16.4 % Platelet Count 198 TH/MM3 204 TH/MM3 Mean Platelet Volume 9.1 FL 8.9 FL Neutrophils (%) (Auto) 84.5 % 78.3 % Lymphocytes (%) (Auto) 3.2 % 6.4 % Monocytes (%) (Auto) 2.3 % 2.4 % Eosinophils (%) (Auto) 9.8 % 12.7 % Basophils (%) (Auto) 0.2 % 0.2 % Neutrophils # (Auto) 11.9 TH/MM3 6.8 TH/MM3 Lymphocytes # (Auto) 0.5 TH/MM3 0.6 TH/MM3 Monocytes # (Auto) 0.3 TH/MM3 0.2 TH/MM3 Eosinophils # (Auto) 1.4 TH/MM3 1.1 TH/MM3 Basophils # (Auto) 0.0 TH/MM3 0.0 TH/MM3 CBC Comment AUTO DIFF DIFF FINAL Differential Total Cells Counted 100 Neutrophils % (Manual) 67 % Band Neutrophils % 16 % Lymphocytes % 5 % Monocytes % 5 % Eosinophils % 6 % Neutrophils # (Manual) 11.8 TH/MM3 Myelocytes 1 % Differential Comment FINAL DIFF MANUAL Platelet Estimate NORMAL Platelet Morphology Comment NORMAL Ovalocytes 1+ Blood Urea Nitrogen 27 MG/DL 24 MG/DL Creatinine 0.66 MG/DL 0.52 MG/DL Random Glucose 95 MG/DL 101 MG/DL Calcium Level 10.0 MG/DL 9.9 MG/DL Sodium Level 130 MEQ/L 133 MEQ/L Potassium Level 3.8 MEQ/L 3.4 MEQ/L Chloride Level 98 MEQ/L 99 MEQ/L Carbon Dioxide Level 22.1 MEQ/L 24.8 MEQ/L Anion Gap 10 MEQ/L 9 MEQ/L Estimat Glomerular Filtration Rate 87 ML/MIN 115 ML/MIN Magnesium Level 1.7 MG/DL Imaging Last Impressions Chest X-Ray 07/21/17 1340 Signed Impressions: Service Date/Time: Friday, July 21, 2017 14:43 - CONCLUSION: Stable exam with small areas of consolidation involving the lingula and right middle lobe. Mild cardiomegaly. Raad Meraz Jr., MD Lower Extremity Ultrasound 07/21/17 0000 Signed Impressions: Service Date/Time: Friday, July 21, 2017 14:41 - CONCLUSION: Bilateral DVTs. Raad Meraz Jr., MD Head CT 07/21/17 0000 Signed Impressions: Service Date/Time: Friday, July 21, 2017 16:03 - CONCLUSION: No acute findings. No residual right occipital or right tentorial subdural hematoma. Raad Mercedes MD CT Angiography 07/21/17 0000 Signed Impressions: Service Date/Time: Friday, July 21, 2017 16:10 - CONCLUSION: 1. The study is positive for significant pulmonary embolism involving the distal left and right main pulmonary artery with extension into multiple segmental vessels involving left upper, left lingula, left lower, right middle, and right lower lobe vessels. 2. Left pleural effusion and scattered areas of patchy opacity in both lower lungs are nonspecific, possibly related to pulmonary infarctions. Multifocal areas of infection or malignancy cannot be excluded. Recommend followup scanning to evaluate for evolution or resolution of these pulmonary abnormalities. Raad Mercedes MD Objective Remarks GENERAL: This is a well-nourished, well-developed patient, in no apparent distress. CARDIOVASCULAR: irregular RESPIRATORY: Clear to auscultation. Breath sounds equal bilaterally. No wheezes , rales, or rhonchi. GASTROINTESTINAL: Abdomen soft, non-tender, nondistended. Normal active bowel sounds MUSCULOSKELETAL: Extremities without clubbing, cyanosis, or edema. NEURO: Alert & Oriented. Moves all ext x4 A/P Problem List: (1) Pulmonary embolism ICD Codes: I26.99 - Other pulmonary embolism without acute cor pulmonale Status: Acute Plan: - recent hospitalization d/t SDH, conservative mgmt - repeat CT brain (07/21) No acute findings. No residual right occipital or right tentorial subdural hematoma - b/l LE US (07/21) --> Bilateral DVTs. - CTA (07/21) --> 1. The study is positive for significant pulmonary embolism involving the distal left and right main pulmonary artery with extension into multiple segmental vessels involving left upper, left lingula, left lower, right middle, and right lower lobe vessels. 2. Left pleural effusion and scattered areas of patchy opacity in both lower lungs are nonspecific, possibly related to pulmonary infarctions. Multifocal areas of infection or malignancy cannot be excluded. Recommend followup scanning to evaluate for evolution or resolution of these pulmonary abnormalities. - Case d/w Neurosurgery (07/21). Okay to anticoagulate - change lovenox to xarelto (07/24) - supportive care (2) DVT (deep venous thrombosis) ICD Codes: I82.409 - Acute embolism and thrombosis of unspecified deep veins of unspecified lower extremity Status: Acute Plan: - see above (3) Atrial fibrillation ICD Codes: I48.91 - Unspecified atrial fibrillation Status: Chronic Plan: - Pt developed RVR - weaned off Cardizem gtt - continue PO digoxin and Cardizem PO (4) Decubitus skin ulcer ICD Codes: L89.90 - Pressure ulcer of unspecified site, unspecified stage Status: Acute Plan: - wound cx: E. Coli - continue Rocephin (5) Subdural hematoma ICD Codes: I62.00 - Nontraumatic subdural hemorrhage, unspecified Status: Acute Plan: - comgmt with Neurosurgery - CT brain (07/21) --> NO acute findings - h/o SDH during prior admission - continue keppra for seizure prophylaxis (6) HTN (hypertension) ICD Codes: I10 - Essential (primary) hypertension Status: Chronic Plan: - cardizem (7) Depression ICD Codes: F32.9 - Major depressive disorder, single episode, unspecified Status: Chronic Plan: - cymbalta (8) Generalized weakness ICD Codes: R53.1 - Weakness Plan: - physical therapy - anticipate discharge to SNF 07/26 (9) UTI (urinary tract infection) ICD Codes: N39.0 - Urinary tract infection, site not specified Status: Acute Plan: - gram negative rods growing in urine cx, continue to follow - Roceplyubov (10) E. coli UTI ICD Codes: N39.0 - Urinary tract infection, site not specified; B96.20 - Unspecified Escherichia coli [E. coli] as the cause of diseases classified elsewhere Status: Acute Plan: - rocephin (11) Colostomy present ICD Codes: Z93.3 - Colostomy status Plan: - comgmt with Dr. Wetzel - family concerned about anal leakage - case d/w Dr. Wetzel (07/24) - Pt underwent Sigmoidoscopy (07/24), colon appears healthy - some diversion colitis, enema every few weeks - possible colostomy reversal once more stable Assessment and Plan Patient examined. Assessment and plan formulated with Candelaria Long PA-C. I agree with the above. Pt hemodynamically stable Repeat labs in AM, BMP, Mag continue xarelto Anticipate discharge to SNF 07/27/17 Problem Qualifiers (1) Pulmonary embolism: Qualified Codes: I26.92 - Saddle embolus of pulmonary artery without acute cor pulmonale (2) DVT (deep venous thrombosis): Qualified Codes: I82.413 - Acute embolism and thrombosis of femoral vein, bilateral (3) Atrial fibrillation: Qualified Codes: I48.2 - Chronic atrial fibrillation (4) Decubitus skin ulcer: Qualified Codes: L89.152 - Pressure ulcer of sacral region, stage 2 (5) HTN (hypertension): Qualified Codes: I10 - Essential (primary) hypertension (6) Depression: Qualified Codes: F32.9 - Major depressive disorder, single episode, unspecified (7) UTI (urinary tract infection): Qualified Codes: N30.00 - Acute cystitis without hematuria Candelaria Long Jul 25, 2017 12:00 Ivan Michael DO Jul 25, 2017 13:12
[2017-07-26] VITALS (9 sets, daily range): BP systolic 122–168; BP diastolic 60–80; PULSE 58–88; RESP 18–20; TEMP 97.3–98.2; O2SAT 94–98
[2017-07-26 08:50] LABS: HEMATOCRIT 40.2 % (35.0-46.0); MEAN CELL VOLUME 93.4 FL (80.0-100.0); MEAN CORPUSCULAR HGB CONC 33.2 % (32.0-36.0); PLATELET COUNT 229 TH/MM3 (150-450); RED BLOOD COUNT 4.31 MIL/MM3 (4.00-5.30); RED CELL DISTRIBUTION WIDTH 16.6 % (11.6-17.2); REVIEW FLAG FINAL; WHITE BLOOD COUNT 7.3 TH/MM3 (4.0-11.0)
[2017-07-26 08:58] LABS: BICARBONATE 26.5 MEQ/L (21.0-32.0); MAGNESIUM 1.7 MG/DL (1.5-2.5); POTASSIUM 3.8 MEQ/L (3.5-5.1)
[2017-07-26] MEDS: DULoxetine HCl DR 30 MG CAP PO SCH (09:00)
[2017-07-26] MEDS: SODIUM CHLORIDE 0.9% FLUSH 10 ML FLUSH IV FLUSH SCH ×2 (09:00→21:29)
[2017-07-26] MEDS: cefTRIAXone INJ 1,000 MG in SODIUM CHLORIDE 0.9% INJ 100 ML IV SCH (10:00)
[2017-07-26] MEDS: DILTIAZEM-CD 240 MG CAP ER PO SCH (10:11)
[2017-07-26] MEDS: DIGOXIN 0.125 MG TAB PO SCH (10:11)
[2017-07-26] MEDS: levETIRAcetam 500 MG TAB PO SCH ×2 (10:11→21:29)
[2017-07-26] MEDS: RIVAROXABAN 15 MG TAB PO SCH ×2 (10:11→21:29)
[2017-07-26] MEDS: FUROSEMIDE 20 MG TAB PO SCH ×2 (10:12→17:45)
[2017-07-26] MEDS: PANTOPRAZOLE SOD 40 MG DELAYED RELEASE TAB PO SCH (10:13)
--- NOTE | 2017-07-26 12:11 | HHI.PR ---
Subjective Remarks No new complaints. Objective Vitals Vital Signs Date Time Temp Pulse Resp B/P (MAP) Pulse Ox O2 Delivery O2 Flow Rate FiO2 07/26/17 08:30 97 Room Air 07/26/17 08:00 97.4 86 18 134/60 (84) 97 07/26/17 04:04 Room Air 07/26/17 04:00 97.8 85 20 138/67 (90) 96 07/26/17 00:00 98.0 78 20 128/62 (84) 98 07/25/17 23:00 Room Air 07/25/17 20:00 97.6 76 20 131/64 (86) 98 07/25/17 20:00 66 07/25/17 16:00 98.3 81 18 118/61 (80) 100 Result Diagram: 07/26/1782207/26/17822 Imaging Last Impressions Chest X-Ray 07/21/17 1340 Signed Impressions: Service Date/Time: Friday, July 21, 2017 14:43 - CONCLUSION: Stable exam with small areas of consolidation involving the lingula and right middle lobe. Mild cardiomegaly. Raad Meraz Jr., MD Lower Extremity Ultrasound 07/21/17 0000 Signed Impressions: Service Date/Time: Friday, July 21, 2017 14:41 - CONCLUSION: Bilateral DVTs. Raad Meraz Jr., MD Head CT 07/21/17 Signed Impressions: Service Date/Time: Friday, July 21, 2017 16:03 - CONCLUSION: No acute findings. No residual right occipital or right tentorial subdural hematoma. Raad Mercedes MD CT Angiography 07/21/17 Signed Impressions: Service Date/Time: Friday, July 21, 2017 16:10 - CONCLUSION: 1. The study is positive for significant pulmonary embolism involving the distal left and right main pulmonary artery with extension into multiple segmental vessels involving left upper, left lingula, left lower, right middle, and right lower lobe vessels. 2. Left pleural effusion and scattered areas of patchy opacity in both lower lungs are nonspecific, possibly related to pulmonary infarctions. Multifocal areas of infection or malignancy cannot be excluded. Recommend followup scanning to evaluate for evolution or resolution of these pulmonary abnormalities. Raad Mercedes MD Objective Remarks GENERAL: This is a well-nourished, well-developed patient, in no apparent distress. CARDIOVASCULAR: irregular RESPIRATORY: Clear to auscultation. Breath sounds equal bilaterally. No wheezes , rales, or rhonchi. GASTROINTESTINAL: Abdomen soft, non-tender, nondistended. Normal active bowel sounds MUSCULOSKELETAL: Extremities without clubbing, cyanosis, or edema. NEURO: Alert & Oriented. Moves all ext x4 A/P Problem List: (1) Pulmonary embolism ICD Codes: I26.99 - Other pulmonary embolism without acute cor pulmonale Status: Acute Plan: - recent hospitalization d/t SDH, conservative mgmt - repeat CT brain (07/21) No acute findings. No residual right occipital or right tentorial subdural hematoma - b/l LE US (07/21) --> Bilateral DVTs. - CTA (07/21) --> 1. The study is positive for significant pulmonary embolism involving the distal left and right main pulmonary artery with extension into multiple segmental vessels involving left upper, left lingula, left lower, right middle, and right lower lobe vessels. 2. Left pleural effusion and scattered areas of patchy opacity in both lower lungs are nonspecific, possibly related to pulmonary infarctions. Multifocal areas of infection or malignancy cannot be excluded. Recommend followup scanning to evaluate for evolution or resolution of these pulmonary abnormalities. - Case d/w Neurosurgery (07/21). Okay to anticoagulate - changed lovenox to xarelto (07/24) - Anticipate discharge to SNF 07/27/17 - supportive care (2) DVT (deep venous thrombosis) ICD Codes: I82.409 - Acute embolism and thrombosis of unspecified deep veins of unspecified lower extremity Status: Acute Plan: - see above (3) Atrial fibrillation ICD Codes: I48.91 - Unspecified atrial fibrillation Status: Chronic Plan: - Pt developed RVR - weaned off Cardizem gtt - continue PO digoxin and Cardizem PO (4) Decubitus skin ulcer ICD Codes: L89.90 - Pressure ulcer of unspecified site, unspecified stage Status: Acute Plan: - wound cx: E. Coli - continue Rocephin (5) Subdural hematoma ICD Codes: I62.00 - Nontraumatic subdural hemorrhage, unspecified Status: Acute Plan: - comgmt with Neurosurgery - CT brain (07/21) --> NO acute findings - h/o SDH during prior admission - continue keppra for seizure prophylaxis (6) HTN (hypertension) ICD Codes: I10 - Essential (primary) hypertension Status: Chronic Plan: - cardizem (7) Depression ICD Codes: F32.9 - Major depressive disorder, single episode, unspecified Status: Chronic Plan: - cymbalta (8) Generalized weakness ICD Codes: R53.1 - Weakness Plan: - physical therapy - anticipate discharge to SNF 07/27 (9) UTI (urinary tract infection) ICD Codes: N39.0 - Urinary tract infection, site not specified Status: Acute Plan: - Urine Culture: E. Coli - resistant to PO antibiotics tested - continue Rocephin 1g IV daily for 5 days - course of IV Rocephin can be completed thru peripheral IV at [facility] - pt's last day of IV rocephin will be 07/28 (10) Colostomy present ICD Codes: Z93.3 - Colostomy status Plan: - comgmt with Dr. Wetzel - family concerned about anal leakage - case d/w Dr. Wetzel (07/24) - Pt underwent Sigmoidoscopy (07/24), colon appears healthy - some diversion colitis, enema every few weeks - possible colostomy reversal once more stable Problem Qualifiers (1) Pulmonary embolism: Qualified Codes: I26.92 - Saddle embolus of pulmonary artery without acute cor pulmonale (2) DVT (deep venous thrombosis): Qualified Codes: I82.413 - Acute embolism and thrombosis of femoral vein, bilateral (3) Atrial fibrillation: Qualified Codes: I48.2 - Chronic atrial fibrillation (4) Decubitus skin ulcer: Qualified Codes: L89.152 - Pressure ulcer of sacral region, stage 2 (5) HTN (hypertension): Qualified Codes: I10 - Essential (primary) hypertension (6) Depression: Qualified Codes: F32.9 - Major depressive disorder, single episode, unspecified (7) UTI (urinary tract infection): Qualified Codes: N30.00 - Acute cystitis without hematuria Ivan Michael DO Jul 26, 2017 12:11
[2017-07-26] MEDS ORDERED: XARE15TA PO (12:46)
[2017-07-27] VITALS: BP 127/63; PULSE 69; RESP 20; TEMP 98; O2SAT 95
[2017-07-27 04:00] VITALS: BP 113/60; PULSE 77; RESP 20; TEMP 97.4; O2SAT 96
[2017-07-27 08:00] VITALS: BP 143/67; PULSE 87; RESP 20; TEMP 97.5; O2SAT 96
[2017-07-27 08:04] LABS: HEMATOCRIT 39.6 % (35.0-46.0); MEAN CELL VOLUME 92.5 FL (80.0-100.0); MEAN CORPUSCULAR HEMOGLOBIN 30.9 PG (27.0-34.0); MEAN CORPUSCULAR HGB CONC 33.4 % (32.0-36.0); PLATELET COUNT 253 TH/MM3 (150-450); RED BLOOD COUNT 4.28 MIL/MM3 (4.00-5.30); RED CELL DISTRIBUTION WIDTH 16.2 % (11.6-17.2); REVIEW FLAG FINAL; WHITE BLOOD COUNT 9.5 TH/MM3 (4.0-11.0)
[2017-07-27] MEDS: DULoxetine HCl DR 30 MG CAP PO SCH (09:00)
--- NOTE | 2017-07-27 09:31 | RADRPT ---
EXAM DATE/TIME: 07/27/2017 07:58 [facility] COMPARISON: CT PULMONARY ANGIOGRAM, July 21, 2017, 16:10. CHEST SINGLE AP, July 21, 2017, 14:43. CHEST PA & LAT, June 10, 2017, 14:50. INDICATIONS : Blood clots. MEDICAL HISTORY : Hypertension. SURGICAL HISTORY : None. ENCOUNTER: Subsequent ACUITY: 3 days PAIN SCORE: 0/10 LOCATION: Bilateral chest FINDINGS: Scattered patchiness is again noted within the right mid and lower lung field and is stable. The hea rt is stable. CONCLUSION: 1. Stable scattered patchiness within the right mid and lower lung deshpande. Dez Slaughter MD on July 27, 2017 at 9:23 Board Certified Radiologist. This report was verified electronically.
[2017-07-27] MEDS: RIVAROXABAN 15 MG TAB PO SCH (09:46)
[2017-07-27] MEDS: cefTRIAXone INJ 1,000 MG in SODIUM CHLORIDE 0.9% INJ 100 ML IV SCH (09:46)
[2017-07-27] MEDS: PANTOPRAZOLE SOD 40 MG DELAYED RELEASE TAB PO SCH (09:46)
[2017-07-27] MEDS: DILTIAZEM-CD 240 MG CAP ER PO SCH (09:46)
[2017-07-27] MEDS: levETIRAcetam 500 MG TAB PO SCH (09:47)
[2017-07-27] MEDS: DIGOXIN 0.125 MG TAB PO SCH (09:47)
[2017-07-27] MEDS: SODIUM CHLORIDE 0.9% FLUSH 10 ML FLUSH IV FLUSH SCH (09:47)
[2017-07-27] MEDS: FUROSEMIDE 20 MG TAB PO SCH (09:47)
[2017-07-27] MEDS ORDERED: CEFT1INJ2 IV (10:01)
--- NOTE | 2017-07-27 10:10 | HHI.DCPOC ---
Discharge Care Plan Diagnosis: (1) Pulmonary embolism (2) DVT (deep venous thrombosis) (3) UTI (urinary tract infection) (4) Atrial fibrillation with RVR (5) Impaired mobility and activities of daily living Goals to Promote Your Health * To prevent worsening of your condition and complications * To maintain your health at the optimal level Directions to Meet Your Goals Take your medications as prescribed Follow your dietary instruction Follow activity as directed Keep your appointments as scheduled Take your immunizations and boosters as scheduled If your symptoms worsen call your PCP, if no PCP go to Urgent Care Center or Emergency Room Smoking is Dangerous to Your Health. Avoid second hand smoke Call the 24-hour hour crisis hotline for domestic abuse at Candelaria Long Jul 27, 2017 10:10
--- NOTE | 2017-07-27 10:10 | HHI.DS ---
Discharge Summary Admission Date Jul 21, 2017 at 17:05 Discharge Date: Jul 27, 2017 Admitting Diagnosis acute PE, bilateral DVT, UTI, infected ulcer (1) Pulmonary embolism ICD Codes: I26.99 - Other pulmonary embolism without acute cor pulmonale Status: Acute (2) DVT (deep venous thrombosis) ICD Codes: I82.409 - Acute embolism and thrombosis of unspecified deep veins of unspecified lower extremity Status: Acute (3) Atrial fibrillation ICD Codes: I48.91 - Unspecified atrial fibrillation Status: Chronic (4) Decubitus skin ulcer ICD Codes: L89.90 - Pressure ulcer of unspecified site, unspecified stage Status: Acute (5) Subdural hematoma ICD Codes: I62.00 - Nontraumatic subdural hemorrhage, unspecified Status: Acute (6) HTN (hypertension) ICD Codes: I10 - Essential (primary) hypertension Status: Chronic (7) Depression ICD Codes: F32.9 - Major depressive disorder, single episode, unspecified Status: Chronic (8) Generalized weakness ICD Codes: R53.1 - Weakness (9) UTI (urinary tract infection) ICD Codes: N39.0 - Urinary tract infection, site not specified Status: Acute (10) Colostomy present ICD Codes: Z93.3 - Colostomy status Consultants Dr. Nicholas Wetzel Procedures Flexible sigmoidoscopy with gastroscope 07/25/[address] Wetzel Brief History Patient is a pleasant 76-year-old female patient had a recent prolonged hospitalization at [facility] 06/11 through 07/01/17. During that hospitalization patient was initially admitted due to a small subdural hemorrhage. Patient was evaluated by neurosurgery and only conservative management was recommended. Unfortunately, patient's hospitalization was complicated by atrial fibrillation with rapid ventricular response. Patient also developed right lower lobe pneumonia with respiratory failure requiring mechanical ventilation. Prior to discharge patient underwent thoracentesis for pleural effusion. Patient was transferred to [facility] and then [facility]. Patient readmitted to [facility] due to the ER due to outpatient study showing bilateral DVTs. Workup in the ER confirms bilateral DVTs and patient is also found to have bilateral pulmonary emboli. Case has been discussed with Dr. Peterson. He was the neurologist on the case during previous admission. Dr. Peterson will consult and advises anticoagulation. Patient is admitted to [facility] for further evaluation and treatment. Pt examined together with Lea Ivey PA-C. CBC/BMP: 07/27/17 0725 07/26/17 0823 Significant Findings Laboratory Tests Test 07/26/17 08:23 07/27/17 07:25 Blood Urea Nitrogen 20 MG/DL (7-18) Creatinine 0.44 MG/DL (0.50-1.00) Sodium Level 134 MEQ/L (136-145) Imaging Last Impressions Chest X-Ray 07/27/17 0800 Signed Impressions: Service Date/Time: Thursday, July 27, 2017 07:58 - CONCLUSION: 1. Stable scattered patchiness within the right mid and lower lung deshpande. Dez Slaughter MD Lower Extremity Ultrasound 07/21/17 0000 Signed Impressions: Service Date/Time: Friday, July 21, 2017 14:41 - CONCLUSION: Bilateral DVTs. Raad Meraz Jr., MD Head CT 07/21/17 0000 Signed Impressions: Service Date/Time: Friday, July 21, 2017 16:03 - CONCLUSION: No acute findings. No residual right occipital or right tentorial subdural hematoma. Raad Mercedes MD CT Angiography 07/21/17 0000 Signed Impressions: Service Date/Time: Friday, July 21, 2017 16:10 - CONCLUSION: 1. The study is positive for significant pulmonary embolism involving the distal left and right main pulmonary artery with extension into multiple segmental vessels involving left upper, left lingula, left lower, right middle, and right lower lobe vessels. 2. Left pleural effusion and scattered areas of patchy opacity in both lower lungs are nonspecific, possibly related to pulmonary infarctions. Multifocal areas of infection or malignancy cannot be excluded. Recommend followup scanning to evaluate for evolution or resolution of these pulmonary abnormalities. Raad Mercedes MD PE at Discharge GENERAL: This is a well-nourished, well-developed patient, in no apparent distress. CARDIOVASCULAR: irregular RESPIRATORY: Clear to auscultation. Breath sounds equal bilaterally. No wheezes , rales, or rhonchi. GASTROINTESTINAL: Abdomen soft, non-tender, nondistended. Normal active bowel sounds. Ostomy present and draining MUSCULOSKELETAL: Extremities without clubbing, cyanosis, or edema. NEURO: Alert & Oriented. Moves all ext x4 Hospital Course Pulmonary embolism - recent hospitalization d/t SDH, conservative mgmt - repeat CT brain (07/21) No acute findings. No residual right occipital or right tentorial subdural hematoma - b/l LE US (07/21) --> Bilateral DVTs. - CTA (07/21) --> 1. The study is positive for significant pulmonary embolism involving the distal left and right main pulmonary artery with extension into multiple segmental vessels involving left upper, left lingula, left lower, right middle, and right lower lobe vessels. 2. Left pleural effusion and scattered areas of patchy opacity in both lower lungs are nonspecific, possibly related to pulmonary infarctions. Multifocal areas of infection or malignancy cannot be excluded. Recommend followup scanning to evaluate for evolution or resolution of these pulmonary abnormalities. - Case d/w Neurosurgery (07/21). Okay to anticoagulate - patient initially on Lovenox therapeutic dosing - changed lovenox to xarelto (07/24) - supportive care DVT (deep venous thrombosis) - see above Atrial fibrillation - Pt developed RVR - weaned off Cardizem gtt - continue PO digoxin and Cardizem PO Decubitus skin ulcer - wound cx: E. Coli - continue Rocephin Subdural hematoma - comgmt with Neurosurgery - CT brain (07/21) --> NO acute findings - h/o SDH during prior admission - continue keppra for seizure prophylaxis HTN (hypertension) - cardizem Depression - cymbalta Generalized weakness - physical therapy - Will DC to SNF for continued rehab/PT UTI (urinary tract infection) - Urine Culture: E. Coli - resistant to PO antibiotics tested - continue Rocephin 1g IV daily for 5 days - course of IV Rocephin can be completed thru peripheral IV at SNF - pt's last day of IV rocephin will be 07/28 Colostomy present - comgmt with Dr. Wetzel - family concerned about anal leakage - case d/w Dr. Wetzel (07/24) - Pt underwent Sigmoidoscopy (07/24), colon appears healthy - some diversion colitis, enema every few weeks - possible colostomy reversal once more stable Pt Condition on Discharge: Stable Discharge Disposition: Discharge to SNF Discharge Instructions DIET: Follow Instructions for: Heart Healthy Diet Activities you can perform: Regular-No Restrictions Follow up Referrals: Colorectal Surgery - 4 Weeks with Alejandro Wetzel MD PCP Follow-up - [address] Snow New Medications: Ceftriaxone Inj (Ceftriaxone Inj) 1 Gm/50 Ml Bagp 1 GM IV ONCE for Infection, #1 BAG 0 Refills Rivaroxaban (Xarelto) 15 Mg Tab 15 MG PO BID for blood clot for 18 Days, #36 TAB 0 Refills after a total of 21 days of Xarelto 15 mg by mouth BID start Xarelto 20 mg by mouth daily Continued Medications: Digoxin (Digoxin) 0.125 Mg Tab 0.125 MG PO DAILY for Regulate Heart Beat, #30 TAB 0 Refills Diltiazem CD 24 HR (Cardizem CD 24 HR) 240 Mg Caper 240 MG PO DAILY for afib for 30 Days, #[address] (Duloxetine DR) 30 Mg Capdr 30 MG PO DAILY, #30 CAP 0 Refills Furosemide (Furosemide) 20 Mg Tab 20 MG PO BID@09,18 for swelling for 30 Days, TAB Ipratropium-Albuterol Neb (Duoneb) 0.5-2.5 Mg/3 Ml Neb 1 AMPULE NEB Q4HR NEB PRN for SHORTNESS OF BREATH for 30 Days, ML Levetiracetam (Keppra) 500 Mg Tab 500 MG PO Q12HR for Seizure Control, #60 TAB Pantoprazole (Pantoprazole) 40 Mg Tab 40 MG PO DAILY, #30 TAB Potassium Chloride ER (Klor-Con 10) 10 Meq Tab 20 MEQ PO DAILY, #30 TAB Discontinued Medications: Aspirin (Aspirin Low Strength) 81 Mg Chew 81 MG CHEW DAILY for afib for 30 Days, Candelaria Cannon Jul 27, 2017 10:10 Armando Garcia MD Jul 27, 2017 11:23
== END 2017-07-27 12:56 | DRG 299 ==
LOC: NEPE 13:25 → NEDA 17:05 → HIME 22:10 → N04A 07-24 18:55
PROVIDERS: ADMIT Hospitalist; ATTEND Hospitalist
PROC: 0DCE8ZZ Extirpation of Matter from Large Intestine, Via Natural or Artificial Opening Endoscopic (ICD-10-PCS; principal; 2017-07-24 07:15)
DX: I82.413 Acute embolism and thrombosis of femoral vein, bilateral (principal); I26.99 Other pulmonary embolism without acute cor pulmonale; I11.0 Hypertensive heart disease with heart failure; L89.152 Pressure ulcer of sacral region, stage 2; I50.9 Heart failure, unspecified; N39.0 Urinary tract infection, site not specified; I82.432 Acute embolism and thrombosis of left popliteal vein; I48.2 Chronic atrial fibrillation; K21.9 Gastro-esophageal reflux disease without esophagitis; E04.9 Nontoxic goiter, unspecified; G47.33 Obstructive sleep apnea (adult) (pediatric); E78.5 Hyperlipidemia, unspecified; K52.9 Noninfective gastroenteritis and colitis, unspecified; M19.90 Unspecified osteoarthritis, unspecified site; B96.20 Unspecified Escherichia coli [E. coli] as the cause of diseases classified elsewhere; F32.9 Major depressive disorder, single episode, unspecified; Z86.718 Personal history of other venous thrombosis and embolism; Z86.73 Personal history of transient ischemic attack (TIA), and cerebral infarction without residual deficits; Z88.1 Allergy status to other antibiotic agents; Z88.5 Allergy status to narcotic agent; Z93.3 Colostomy status; Z96.653 Presence of artificial knee joint, bilateral
CPT/HCPCS: 70450; 71010; 71020; 71275; 76937; 80048; 80053; 80162; 81001; 83735; 84443; 85007; 85025; 85027; 85610; 85730; 87040; 87070; 87077; 87086; 87186; 87641; 93005; 93970; 96365; J0696; J1200; J1650; J3370; J7050; P9612; Q9967

== ENCOUNTER 2017-08-22 19:43 | Inpatient (IN) | payer MEDICARE ==
[2017-08-22] VITALS (7 sets, daily range): BP systolic 125–160; BP diastolic 60–76; PULSE 75–81; RESP 16–18; TEMP 98–98.9; O2SAT 98–100
[~2017-08-22] VITALS: Ht 170.2 cm; Wt 75.0 kg
[~2017-08-22 19:43] MED LIST changes: -ASPI81CH25 CHEW; +CEFT1INJ2 IV; +KLOR10TA PO; -MIRT1TAB44 PO; -POTA-243 PO; +XARE15TA PO
--- NOTE | 2017-08-22 20:09 | PD ---
HPI Chief Complaint: Pain: Acute or Chronic Time Seen by Provider: 20:04 Travel History International Travel<30 days: No Contact w/Intl Traveler<30days: No Traveled to known affect area: No History of Present Illness HPI 76-year-old female brought in from [facility] via EMS with reports of DVT in the right mid thigh which is nonocclusive on ultrasound report by [facility]. Patient is currently at [facility] for rehabilitation for history of PE and bilateral DVTs as well as history of temporal subdural hematoma, on Xeralto. Patient denies chest pain or shortness of breath. Her pain is currently 6 out of 10 mainly in the right calf and distal medial thigh. Chest pressure or abdominal discomfort. She is allergic to chlorhexidine, codeine, penicillin, and tazobactam [facility] Past Medical History Arthritis: Yes Asthma: No Atrial Fibrillation: Yes Autoimmune Disease: No Blood Disorders: No Anxiety: No Depression: No Heart Rhythm Problems: Yes Cancer: No Cardiovascular Problems: Yes High Cholesterol: Yes Chemotherapy: No Chest Pain: No Congestive Heart Failure: Yes COPD: No Cerebrovascular Accident: Yes Diabetes: No Diminished Hearing: No Endocrine: Yes Gastrointestinal Disorders: Yes (HX DIVERTICULITIS) GERD: Yes Genitourinary: Yes Headaches: No Hiatal Hernia: Yes Heparin Induced Thrombocytopen: No Hypertension: Yes Immune Disorder: No Implanted Vascular Access Dvce: Yes Kidney Stones: No Musculoskeletal: Yes Neurologic: Yes Psychiatric: No Reproductive: No Respiratory: Yes Immunizations Current: Yes Migraines: No Radiation Therapy: No Renal Failure: No Seizures: No Sickle Cell Disease: No Sleep Apnea: No Thyroid Disease: Yes (GOITER/Nodules on thyroid) Ulcer: No ?: Not Past Surgical History Abdominal Surgery: No (Fistula fix; colostomy placement; gallbladder removal) AICD: No Arteriovenous Shunt: No Body Medical Devices: Colostomy R ABD Cardiac Surgery: No Cholecystectomy: Yes Ear Surgery: No Endocrine Surgery: No Eye Surgery: Yes (cataract bilateral) Genitourinary Surgery: No Gynecologic Surgery: No Insulin Pump: No Joint Replacement: Yes (BILATERAL KNEE) Neurologic Surgery: No Oral Surgery: No Pacemaker: No Thoracic Surgery: No Other Surgery: Yes Social History Alcohol Use: No Tobacco Use: No Substance Use: No Allergies-Medications (Allergen,Severity, Reaction): Coded Allergies: codeine (Verified Allergy, Severe, NAUSEA, 08/22/17) chlorhexidine (Verified Allergy, Intermediate, Rash, , 08/22/17) piperacillin (Verified Allergy, Intermediate, Rash, 08/22/17) tazobactam (Verified Allergy, Intermediate, Rash, 08/22/17) Reported Meds & Prescriptions Reported Meds & Active Scripts Active Xarelto (Rivaroxaban) 15 Mg Tab 15 Mg PO BID 18 Days after a total of 21 days of Xarelto 15 mg by mouth BID start Xarelto 20 mg by mouth daily Furosemide 20 Mg Tab 20 Mg PO BID@,18 30 Days Keppra (Levetiracetam) 500 Mg Tab 500 Mg PO Q12HR Cardizem CD 24 HR (Diltiazem CD 24 HR) 240 Mg Caper 240 Mg PO DAILY 30 Days Pantoprazole (Pantoprazole Sodium) 40 Mg Tab 40 Mg PO DAILY Klor-Con 10 (Potassium Chloride) 10 Meq Tab 20 Meq PO DAILY Duoneb (Ipratropium-Albuterol Neb) 0.5-2.5 Mg/3 Ml Neb 1 Ampule NEB Q4HR NEB PRN 30 Days Reported Digoxin 0.125 Mg Tab 0.125 Mg PO DAILY Duloxetine DR (Duloxetine HCl) 30 Mg Capdr 30 Mg PO DAILY Review of Systems Except as stated in HPI: all other systems reviewed are Neg General / Constitutional: No: Fever Eyes: No: Visual changes HENT: No: Headaches Cardiovascular: No: Chest Pain or Discomfort Respiratory: No: Shortness of Breath Gastrointestinal: No: Abdominal Pain Genitourinary: No: Dysuria Musculoskeletal: Positive: Myalgias (see history present illness), Pain, No: Weakness, Cramping, Edema Skin: No Rash Neurologic: No: Weakness Psychiatric: No: Depression Endocrine: No: Polydipsia Hematologic/Lymphatic: No: Easy Bruising Physical Exam Narrative GENERAL: Patient is resting comfortably in the exam room in no acute distress. SKIN: Warm and dry. Normal color. Normal turgor. No cyanosis. HEAD: Atraumatic. Normocephalic. EYES: Pupils equal and round. No scleral icterus. No injection or drainage. ENT: No nasal bleeding or discharge. Mucous membranes pink and moist. Pharynx is clear. Airway is patent. NECK: Trachea midline. Supple and nontender. CARDIOVASCULAR: Regular rate and rhythm. No murmurs gallops or rubs appreciated. RESPIRATORY: No accessory muscle use. Clear to auscultation. Breath sounds equal bilaterally. GASTROINTESTINAL: Abdomen soft, non-tender, nondistended. Hepatic and splenic margins not palpable. MUSCULOSKELETAL: Extremities without clubbing, cyanosis, or edema. No obvious deformities. Patient has nonspecific right calf tenderness with palpation, with negative Homans sign. Patient complains of tenderness along the medial thigh as well without obvious signs of cellulitis or phlebitis. NEUROLOGICAL: Awake and alert. No obvious cranial nerve deficits. Motor grossly within normal limits. Five out of 5 muscle strength in the arms and legs. Normal speech. PSYCHIATRIC: Appropriate mood and affect; insight and judgment normal. Data Data Last Documented VS Vital Signs Date Time Temp Pulse Resp B/P (MAP) Pulse Ox O2 Delivery O2 Flow Rate FiO2 08/22/17 20:45 80 16 126/67 (86) 98 Room Air 08/22/17 19:51 98.0 Orders Orders Electrocardiogram (08/22/17 20:03) Complete Blood Count With Diff (08/22/17 20:03) Comprehensive Metabolic Panel (08/22/17 20:03) Prothrombin Time / Inr (Pt) (08/22/17 20:03) Act Partial Throm Time (Ptt) (08/22/17 20:03) Chest, Single Ap (08/22/17 20:03) Ecg Monitoring (08/22/17 20:03) Bilateral Bp Monitoring (08/22/17 20:03) Iv Access Insert/Monitor (08/22/17 20:03) Oximetry (08/22/17 20:03) Oxygen Administration (08/22/17 20:03) Sodium Chloride 0.9% Flush (Ns Flush) (08/22/17 20:15) Heparin Inj (Heparin Inj) (08/22/17 21:00) Heparin-D5w 25,000 U/250 Ml (Heparin-D5w (08/22/17 21:00) Cbc No Diff, Includes Plts (08/25/17 06:00) Act Partial Throm Time (Ptt) (08/23/17 03:58) Occult Blood (Hemoccult) Stool (08/22/17 20:58) Admit Order (Ed Use Only) (08/22/17 21:05) Labs Laboratory Tests Test 08/22/17 20:15 White Blood Count 8.5 TH/MM3 Red Blood Count 4.89 MIL/MM3 Hemoglobin 15.4 GM/DL Hematocrit 45.1 % Mean Corpuscular Volume 92.3 FL Mean Corpuscular Hemoglobin 31.5 PG Mean Corpuscular Hemoglobin Concent 34.1 % Red Cell Distribution Width 15.4 % Platelet Count 213 TH/MM3 Mean Platelet Volume 8.1 FL Neutrophils (%) (Auto) 67.4 % Lymphocytes (%) (Auto) 20.6 % Monocytes (%) (Auto) 8.2 % Eosinophils (%) (Auto) 3.0 % Basophils (%) (Auto) 0.8 % Neutrophils # (Auto) 5.8 TH/MM3 Lymphocytes # (Auto) 1.8 TH/MM3 Monocytes # (Auto) 0.7 TH/MM3 Eosinophils # (Auto) 0.3 TH/MM3 Basophils # (Auto) 0.1 TH/MM3 CBC Comment DIFF FINAL Differential Comment Prothrombin Time 13.9 SEC Prothromb Time International Ratio 1.2 RATIO Activated Partial Thromboplast Time 34.0 SEC Blood Urea Nitrogen 23 MG/DL Creatinine 0.82 MG/DL Random Glucose 107 MG/DL Total Protein 7.5 GM/DL Albumin 3.3 GM/DL Calcium Level 10.1 MG/DL Alkaline Phosphatase 134 U/L Aspartate Amino Transf (AST/SGOT) 34 U/L Alanine Aminotransferase (ALT/SGPT) 44 U/L Total Bilirubin 0.4 MG/DL Sodium Level 136 MEQ/L Potassium Level 4.2 MEQ/L Chloride Level 100 MEQ/L Carbon Dioxide Level 27.7 MEQ/L Anion Gap 8 MEQ/L Estimat Glomerular Filtration Rate 68 ML/MIN MDM Medical Decision Making Medical Screen Exam Complete: Yes Emergency Medical Condition: Yes Medical Record Reviewed: Yes Differential Diagnosis Right lower leg DVT. Failure to outpatient therapy. Need for heparinization and bridged to Coumadin. Narrative Course Patient is medically stable at time of exam. Patient discussed with Dr. Hansen who feels the patient warrants admission. Labs ordered including CBC, CMP, chest x-ray, EKG, and coagulation studies. EKG shows atrial fibrillation with moderate T wave abnormality. This appears CTA is not felt warranted as the patient has no respiratory symptoms at this time. CBC is unremarkable. Coagulation studies showed PT of 13.9, INR 1.2, APTT is 34.0. CMP shows no significant findings other than BUN of 23, GFR 68, glucose 107, alkaline phosphatase 134, albumin is 3.3. Chest x-ray shows no acute process. Call was placed to [facility] to discuss admission. Diagnosis Primary Impression: DVT (deep venous thrombosis) Qualified Codes: I82.4Y1 - Acute embolism and thrombosis of unspecified deep veins of right proximal lower extremity Additional Impression: Failure of outpatient treatment Condition: Stable Alejandro Rubio Aug 22, 2017 20:09
[2017-08-22] MEDS ORDERED: SODIUM CHLORIDE 0.9% FLUSH 10 ML FLUSH IVF PRN (20:15)
[2017-08-22 20:32] LABS: AUTOMATED NEUTROPHIL # 5.8 TH/MM3 (1.8-7.7); BASOPHIL # 0.1 TH/MM3 (0-0.2); BASOPHIL % 0.8 % (0.0-2.0); EOSINOPHIL # 0.3 TH/MM3 (0-0.4); HEMATOCRIT 45.1 % (35.0-46.0); HEMO FLAGS DIFF FINAL; LYMPH % 20.6 % (9.0-44.0); LYMPHOCYTE # 1.8 TH/MM3 (1.0-4.8); MEAN CELL VOLUME 92.3 FL (80.0-100.0); MEAN CORPUSCULAR HEMOGLOBIN 31.5 PG (27.0-34.0); MEAN CORPUSCULAR HGB CONC 34.1 % (32.0-36.0); MONO % 8.2 % (0.0-8.0); NEUT % 67.4 % (16.0-70.0); PLATELET COUNT 213 TH/MM3 (150-450); RED BLOOD COUNT 4.89 MIL/MM3 (4.00-5.30); RED CELL DISTRIBUTION WIDTH 15.4 % (11.6-17.2); WHITE BLOOD COUNT 8.5 TH/MM3 (4.0-11.0)
[2017-08-22 20:43] LABS: INTERNATIONAL NORMALIZED RATIO 1.2 RATIO; PROTHROMBIN TIME - PATIENT 13.9 SEC (9.8-11.6)
[2017-08-22 20:46] LABS: ALT (GPT) 44 U/L (10-53)
[2017-08-22 20:48] LABS: ALKALINE PHOSPHATASE 134 U/L (45-117); TOTAL BILIRUBIN ADULT 0.4 MG/DL (0.2-1.0)
[2017-08-22 20:50] LABS: ANION GAP 8 MEQ/L (5-15); AST (GOT) 34 U/L (15-37); BICARBONATE 27.7 MEQ/L (21.0-32.0); BLOOD UREA NITROGEN 23 MG/DL (7-18); CHLORIDE 100 MEQ/L (98-107); GLOMERULAR FILTRATION RATE 68 ML/MIN (>89); POTASSIUM 4.2 MEQ/L (3.5-5.1); SODIUM (NA) 136 MEQ/L (136-145)
[2017-08-22] MEDS ORDERED: HEPARIN-D5W 25,000 U/250 ML 250 ML IV PRN (21:00)
[2017-08-22] MEDS ORDERED: HEPARIN SODIUM - IV 10,000 UNITS/10 ML VIAL IV PUSH ONE (21:00)
--- NOTE | 2017-08-22 21:04 | RADRPT ---
EXAM DATE/TIME: 08/22/2017 20:45 [facility] COMPARISON: CHEST PA & LAT, July 27, 2017, 7:58. CHEST SINGLE AP, July 21, 2017, 14:43. INDICATIONS : Patient complains of chest pain and left leg pain. MEDICAL HISTORY : Congestive heart failure. Hypertension pleural effusion, atrial fibrillation, subdural hematoma. Bloo d clots, lungs. SURGICAL HISTORY : None. ENCOUNTER: Initial ACUITY: 2 days PAIN SCORE: 3/10 LOCATION: chest FINDINGS: Prior chest x-ray on 07/21/17 it demonstrated a focal air consolidation in the lateral right lung whi ch resolved with residual linear opacities on a followup chest x-ray 07/27/17. On today's examinatio n, the interstitial/scarring opacities in the lateral right midlung are stable in appearance. There is a new focal opacity in the right costophrenic angle which does cause mild blunting of the costophr enic angle. The left lung is clear. The heart is normal in size. The left hemidiaphragm is well de lineated. CONCLUSION: 1. Small area of new infiltrate in the right costophrenic angle. 2. Stable scarring in the lateral right midlung. Raad Mercedes MD on August 22, 2017 at 21:00 Board Certified Radiologist. This report was verified electronically.
[2017-08-22] MEDS ORDERED: RESP: ALBUTEROL 2.5 MG/IPRATROPIUM 0.5 MG NEB (PRN) NEB (21:30)
[2017-08-22] MEDS ORDERED: ACETAMINOPHEN 325 MG TAB PO PRN (21:30)
[2017-08-22] MEDS ORDERED: traMADol HCL 50 MG TAB PO PRN (21:30)
--- NOTE | 2017-08-22 22:13 | RADRPT ---
EXAM DATE/TIME: 08/22/2017 21:39 This report includes an Addendum and supersedes previous reports for this exam. [facility] COMPARISON: US LEG BILATERAL VENOUS DOPPLER, July 21, 2017, 14:41. INDICATIONS : Bilateral leg swelling. MEDICAL HISTORY : Congestive heart failure. Hypercholesterolemia. Diverticulitis. Goiter. CVA. Head trauma. Subdural he matoma. Afib. HTN. Inflammatory bowel disease. Hiatal hernia. GERD. UTI. Clotting problems. SURGICAL HISTORY : Cholecystectomy. Bilateral cataracts with prosthesis. Fistula fix. Colostomy placement. Bilateral kne e replacements. Blood transfusions. ENCOUNTER: Subsequent ACUITY: 1 month PAIN SCORE: 2/10 LOCATION: Bilateral legs. TECHNIQUE: Venous ultrasound of the left and right leg was performed from the inguinal ligament to the proximal calf. Real-time, color Doppler and spectral tracing, compression and augmentation techniques were us ed. FINDINGS: RIGHT LEG: Abnormal. There is evidence of deep venous thrombosis in the femoral vein and popliteal vein with no augmentation of flow and noncompressibility of the vessel with intraluminal echogenic thrombus. LEFT LEG: Abnormal. There is evidence of diffuse sclerosis of the femoral vein and popliteal vein with no augm entation of flow and noncompressibility of the vessel with intraluminal echogenic thrombus. CONCLUSION: Positive for deep venous thrombosis bilateral lower extremity. Raad Mercedes MD on August 22, 2017 at 22:08 Board Certified Radiologist. This report was verified electronically. ADDENDUM: Interval comparison of the present exam to the prior on 07/21/17 was made with specific attention to evaluate for interval change on the right side. On today's exam, there is flow seen within the popli teal vein (no flow within the popliteal vein on prior exam). There is also a thin channel of flow se en in the distal superficial femoral vein (no flow seen in this segment on the prior exam). There re zi no augmentation and noncompressibility of the segments. The overall impression is that there i s stable or slight improvement in the right DVT. Raad Mercedes MD on August 23, 2017 at 11:29 Board Certified Radiologist. This report was verified electronically.
[2017-08-23 03:10] LABS: AUTOMATED NEUTROPHIL # 4.8 TH/MM3 (1.8-7.7); BASOPHIL # 0.1 TH/MM3 (0-0.2); BASOPHIL % 0.9 % (0.0-2.0); EOSINOPHIL # 0.2 TH/MM3 (0-0.4); EOSINOPHIL % 3.2 % (0.0-4.0); HEMATOCRIT 39.9 % (35.0-46.0); LYMPH % 26.8 % (9.0-44.0); LYMPHOCYTE # 2.1 TH/MM3 (1.0-4.8); MEAN CELL VOLUME 90.3 FL (80.0-100.0); MEAN CORPUSCULAR HEMOGLOBIN 32.5 PG (27.0-34.0); MONO % 8.3 % (0.0-8.0); NEUT % 60.8 % (16.0-70.0); PLATELET COUNT 211 TH/MM3 (150-450); RED BLOOD COUNT 4.42 MIL/MM3 (4.00-5.30); RED CELL DISTRIBUTION WIDTH 15.1 % (11.6-17.2); WHITE BLOOD COUNT 7.8 TH/MM3 (4.0-11.0)
[2017-08-23 03:18] LABS: HEMO FLAGS AUTO DIFF
[2017-08-23 03:57] LABS: BICARBONATE 23.7 MEQ/L (21.0-32.0); POTASSIUM 3.7 MEQ/L (3.5-5.1)
[2017-08-23 04:04] VITALS: BP 149/66; PULSE 88; RESP 18; TEMP 98.7; O2SAT 98
[2017-08-23 04:57] LABS: SCAN/DIFF AUTO DIFF CONFIRMED
[2017-08-23 06:16] LABS: APTT (PATIENT) 75.1 SEC (24.3-30.1)
--- NOTE | 2017-08-23 07:52 | HHI.HP ---
HPI Service [facility] Hospitalists Primary Care Physician Leonardo Snow MD Admission Diagnosis DVT Chief Complaint: right thigh pain Travel History International Travel<30 Days: No Contact w/Intl Traveler <30 Da: No Traveled to Known Affected Are: No History of Present Illness Patient is a pleasant 76-year-old female patient had a recent prolonged hospitalization at [place] 05/29 through 07/01/17. During that hospitalization patient was initially admitted due to a small subdural hemorrhage after slip and fall with head trauma while on Coumadin due to Atrial Fibrillation. On that admission INR was 4.5. Patient was evaluated by neurosurgery and only conservative management was recommended. Unfortunately, patient's hospitalization was complicated by atrial fibrillation with rapid ventricular response. Patient also developed right lower lobe pneumonia with respiratory failure requiring mechanical ventilation. Prior to discharge patient underwent thoracentesis for pleural effusion. Patient was transferred to [facility] then had seizure activity and was readmitted to ICU. Started on Keppra stablized then discharged to [facility]. Patient readmitted to [place] due to the ER due to outpatient study showing bilateral DVTs. Workup in the ER confirms bilateral DVTs and patient is also found to have bilateral pulmonary emboli. Case discussed with Dr. Peterson. He was the neurologist on the case during previous admission. Dr. Peterson will consult and advises anticoagulation. Patient was back at [facility] undergoing PT. Patient reports that she has been having aggressive PT. Patient reports that for the last few days after PT she has been having mild pain right upper thigh anterior surface. Pain is worse after PT. At this time patient reports that the pain has resolved and is no longer present. Patient had outpatient US BLE which revealed nonocclusive BLE DVT. Patient then sent to ER. Patient was started on heparin IV by ER. Repeat BLE US revealed: - US bilateral lower extremities (08/22/17) reviewed and reveals: Right leg Evidence of deep venous thrombosis in the femoral vein and popliteal vein with no augmentation of flow and noncompressibly of the vessel with intraluminal echogenic thrombus. Left Evidence of diffuse sclerosis of the femoral vein and popliteal vein with no augmentation of flow and noncompressibilty of the vessel with intraluminal echogenic thrombus. Patient denies fevers, chills, N/V/D/C, increasing BLE edema, SOB or chest pain. Review of Systems Constitutional: COMPLAINS OF: Fatigue, DENIES: Fever, Chills Respiratory: DENIES: Cough, Sputum production, Shortness of breath Cardiovascular: DENIES: Chest pain, Palpitations, Lower Extremity Edema Gastrointestinal: DENIES: Abdominal pain, Black stools, Bloody stools, BRB per rectum, Constipation, Diarrhea Musculoskeletal: COMPLAINS OF: Muscle aches Neurologic: DENIES: Abnormal gait, Headache, Localized weakness, Speech Problems Psychiatric: DENIES: Anxiety, Confusion, Depression Past Family Social History Past Medical History DVT and PE 07/21/17 Recent right tentorium subdural hematoma/subcortical hemorrhage involving the right parietal field 05/29/17 Recent treatment for left lower lobe pneumonia Gastroesophageal reflux disease Hypertension Dyslipidemia Chronic atrial fibrillation CHADVASC 5. Pt was off anticoagulation d/t recent admission with SDH Obstructive sleep apnea Hiatal hernia IBS History of splenic infarction History of DVT bilateral lower extremity status post embolectomy Depression Past Surgical History Lap-assisted loop colostomy with revision by Dr. Wetzel History of lower extremity embolectomy by Dr. Mo Cholecystectomy Bilateral total knee replacements with revision of left knee Cataracts Reported Medications Xarelto (Rivaroxaban) 15 Mg Tab 15 Mg PO BID 18 Days after a total of 21 days of Xarelto 15 mg by mouth BID start Xarelto 20 mg by mouth daily Furosemide 20 Mg Tab 20 Mg PO BID@09,18 30 Days Keppra (Levetiracetam) 500 Mg Tab 500 Mg PO Q12HR Cardizem CD 24 HR (Diltiazem CD 24 HR) 240 Mg Caper 240 Mg PO DAILY 30 Days Pantoprazole (Pantoprazole Sodium) 40 Mg Tab 40 Mg PO DAILY Klor-Con 10 (Potassium Chloride) 10 Meq Tab 20 Meq PO DAILY Duoneb (Ipratropium-Albuterol Neb) 0.5-2.5 Mg/3 Ml Neb 1 Ampule NEB Q4HR NEB PRN 30 Days Digoxin 0.125 Mg Tab 0.125 Mg PO DAILY Duloxetine DR (Duloxetine HCl) 30 Mg Capdr 30 Mg PO DAILY Allergies: Coded Allergies: codeine (Verified Allergy, Severe, NAUSEA, 08/22/17) chlorhexidine (Verified Allergy, Intermediate, Rash, , 08/22/17) piperacillin (Verified Allergy, Intermediate, Rash, 08/22/17) tazobactam (Verified Allergy, Intermediate, Rash, 08/22/17) Active Ordered Medications Current Medications Medications (Trade) Dose Ordered Sig/Lucina Route Start Time Stop Time Status Last Admin (NS Flush) 2 ml UNSCH PRN IVF 08/22/17 20:15 Heparin Sodium/ Dextrose 250 ml @ 14 mls/hr TITRATE PRN IV 08/22/17 21:00 08/22/17 21:26 (Lanoxin) 0.125 mg DAILY PO 08/23/17 09:00 08/23/17 09:50 (Cardizem Cd) 240 mg DAILY PO 08/23/17 09:00 08/23/17 09:50 (Cymbalta Dr) 30 mg DAILY PO 08/23/17 09:00 08/23/17 09:51 (Lasix) 20 mg BID@09,18 PO 08/23/17 09:00 08/23/17 09:51 (Duoneb Neb) 1 ampule Q4HR NEB PRN NEB 08/22/17 21:30 (Keppra) 500 mg Q12HR PO 08/23/17 09:00 08/23/17 09:50 (Protonix) 40 mg DAILY PO 08/23/17 09:00 08/23/17 09:51 (KCl) 20 meq DAILY PO 08/23/17 09:00 08/23/17 09:50 (Tylenol) 650 mg Q4H PRN PO 08/22/17 21:30 (Ultram) 50 mg Q4H PRN PO 08/22/17 21:30 Family History Noncontributory Social History currently residing in SNF for rehab, prior to 05/29/17 was living at home alone Denies Tobacco, alcohol and IV drug use negative Physical Exam Vital Signs Vital Signs Date Time Temp Pulse Resp B/P (MAP) Pulse Ox O2 Delivery O2 Flow Rate FiO2 08/23/17 04:04 98.7 88 18 149/66 (93) 98 08/22/17 23:49 98.9 81 18 132/61 (84) 100 08/22/17 22:12 81 15 125/62 (83) 98 08/22/17 22:00 99 08/22/17 21:45 75 17 139/60 (86) 99 Room Air 08/22/17 20:45 80 16 126/67 (86) 98 Room Air 08/22/17 20:15 98 Room Air 08/22/17 20:15 77 18 151/76 (101) 98 Room Air 08/22/17 19:51 98.0 76 18 160/68 (98) 98 Physical Exam GENERAL: This is a well-nourished, well-developed patient, in no apparent distress. SKIN: No rashes, ecchymoses or lesions. Cool and dry. HEAD: Atraumatic. Normocephalic. No temporal or scalp tenderness. EYES: Extraocular motions intact. No scleral icterus. No injection or drainage. CARDIOVASCULAR: Irregularly irregular RESPIRATORY: Clear to auscultation. Breath sounds equal bilaterally. colostomy present. No hepato-splenomegaly, or palpable masses. No guarding. MUSCULOSKELETAL: Extremities without clubbing, cyanosis, or edema. No joint tenderness, effusion, or edema noted. No calf tenderness. Negative Homans sign bilaterally. NEUROLOGICAL: Awake and alert. No focal deficits. Motor and sensory grossly within normal limits. 4-5 out of 5 muscle strength in all muscle groups. Normal speech. Laboratory Laboratory Tests Test 08/22/17 20:15 08/23/17 02:55 08/23/17 05:30 White Blood Count 8.5 7.8 Red Blood Count 4.89 4.42 Hemoglobin 15.4 14.4 Hematocrit 45.1 39.9 Mean Corpuscular Volume 92.3 90.3 Mean Corpuscular Hemoglobin 31.5 32.5 Mean Corpuscular Hemoglobin Concent 34.1 36.0 Red Cell Distribution Width 15.4 15.1 Platelet Count 213 211 Mean Platelet Volume 8.1 7.8 Neutrophils (%) (Auto) 67.4 60.8 Lymphocytes (%) (Auto) 20.6 26.8 Monocytes (%) (Auto) 8.2 8.3 Eosinophils (%) (Auto) 3.0 3.2 Basophils (%) (Auto) 0.8 0.9 Neutrophils # (Auto) 5.8 4.8 Lymphocytes # (Auto) 1.8 2.1 Monocytes # (Auto) 0.7 0.6 Eosinophils # (Auto) 0.3 0.2 Basophils # (Auto) 0.1 0.1 CBC Comment DIFF FINAL AUTO DIFF Differential Comment AUTO DIFF CONFIRMED Prothrombin Time 13.9 Prothromb Time International Ratio 1.2 Activated Partial Thromboplast Time 34.0 232.0 75.1 Blood Urea Nitrogen 23 22 Creatinine 0.82 0.60 Random Glucose 107 123 Total Protein 7.5 Albumin 3.3 Calcium Level 10.1 10.1 Alkaline Phosphatase 134 Aspartate Amino Transf (AST/SGOT) 34 Alanine Aminotransferase (ALT/SGPT) 44 Total Bilirubin 0.4 Sodium Level 136 138 Potassium Level 4.2 3.7 Chloride Level 100 103 Carbon Dioxide Level 27.7 23.7 Anion Gap 8 11 Estimat Glomerular Filtration Rate 68 97 Date/Time Source Procedure Growth Status 08/22/17 22:20 Stool Stool Stool Occult Blood (JUSTINA) - Final HEMOCCULT POSITIVE Complete Result Diagram: 08/23/1725408/23/17254 Imaging Last Impressions Chest X-Ray 08/22/172002 Signed Impressions: Service Date/Time: Tuesday, August 22, 2017 20:45 - CONCLUSION: 1. Small area of new infiltrate in the right costophrenic angle. 2. Stable scarring in the lateral right midlung. Raad Mercedes MD Lower Extremity Ultrasound 08/22/17 0000 Signed Impressions: Service Date/Time: Tuesday, August 22, 2017 21:39 - CONCLUSION: Positive for deep venous thrombosis bilateral lower extremity. Raad Mercedes MD Caprini VTE Risk Assessment Caprini VTE Risk Assessment: Mod/High Risk (score >= 2) Caprini Risk Assessment Model Point Value = 1 Point Value = 2 Point Value = 3 Point Value = 5 Age 41-60 Minor surgery BMI > 25 kg/m2 Swollen legs Varicose veins or History of unexplained or recurrent spontaneous Oral contraceptives or hormone replacement Sepsis (< 1 month) Serious lung disease, including pneumonia (< 1 month) Abnormal pulmonary function Acute myocardial infarction Congestive heart failure (< 1 month) History of inflammatory bowel disease Medical patient at bed rest Age 61-74 Arthroscopic surgery Major open surgery (> 45 min) Laparoscopic surgery (> 45 min) Malignancy Confined to bed (> 72 hours) Immobilizing plaster cast Central venous access Age >= 75 History of VTE Family history of VTE Factor V Leiden Prothrombin [id number] Lupus anticoagulant Anticardiolipin antibodies Elevated serum homocysteine Heparin-induced thrombocytopenia Other congenital or acquired thrombophilia Stroke (< 1 month) Elective arthroplasty Hip, pelvis, or leg fracture Acute spinal cord injury (< 1 month) Prophylaxis Regimen Total Risk Factor Score Risk Level Prophylaxis Regimen 0-1 Low Early ambulation 2 Moderate Order ONE of the following: *Sequential Compression Device (SCD) *Heparin 5000 units SQ BID 3-4 Higher Order ONE of the following medications: *Heparin 5000 units SQ TID *Enoxaparin/Lovenox 40 mg SQ daily (WT < 150 kg, CrCl > 30 mL/min) *Enoxaparin/Lovenox 30 mg SQ daily (WT < 150 kg, CrCl > 10-29 mL/min) *Enoxaparin/Lovenox 30 mg SQ BID (WT < 150 kg, CrCl > 30 mL/min) AND/OR *Sequential Compression Device (SCD) 5 or more Highest Order ONE of the following medications: *Heparin 5000 units SQ TID (Preferred with Epidurals) *Enoxaparin/Lovenox 40 mg SQ daily (WT < 150 kg, CrCl > 30 mL/min) *Enoxaparin/Lovenox 30 mg SQ daily (WT < 150 kg, CrCl > 10-29 mL/min) *Enoxaparin/Lovenox 30 mg SQ BID (WT < 150 kg, CrCl > 30 mL/min) AND *Sequential Compression Device (SCD) Assessment and Plan Problem List: (1) DVT (deep venous thrombosis) ICD Codes: I82.409 - Acute embolism and thrombosis of unspecified deep veins of unspecified lower extremity Status: Acute Plan: DVT (deep venous thrombosis) Right thigh pain- resolved - US bilateral lower extremities (08/22/17) reviewed and reveals: Right leg Evidence of deep venous thrombosis in the femoral vein and popliteal vein with no augmentation of flow and noncompressibly of the vessel with intraluminal echogenic thrombus. Left Evidence of diffuse sclerosis of the femoral vein and popliteal vein with no augmentation of flow and noncompressibilty of the vessel with intraluminal echogenic thrombus. - US bilateral lower extremities (07/21/17) reviewed and revealed: Right leg echogenic noncompressible material from the proximal superficial vein into the trifurcation veins, occlusive in nature. Left lower extremity occlusive thrombus involving the mid and distal superficial femoral vein with nonocclusive thrombus involving the popliteal vein - Patient has been receiving Xarelto since 07/24/17 - pain maybe musculoskeletal in nature, awaiting return call from radiologist to review and compare US from 08/22 to 07/21. - Consultation Hematology for assistance to r/o anticoagulation failure and further anticoagulation recommendations Resent pulmonary embolism - CTA (07/21) --> 1. The study is positive for significant pulmonary embolism involving the distal left and right main pulmonary artery with extension into multiple segmental vessels involving left upper, left lingula, left lower, right middle, and right lower lobe vessels. 2. Left pleural effusion and scattered areas of patchy opacity in both lower lungs are nonspecific, possibly related to pulmonary infarctions. Multifocal areas of infection or malignancy cannot be excluded. Recommend followup scanning to evaluate for evolution or resolution of these pulmonary abnormalities. - Case d/w Neurosurgery (07/21). Okay to anticoagulate - patient initially on Lovenox therapeutic dosing - changed lovenox to xarelto (07/24) - supportive care Atrial fibrillation - continue PO digoxin and Cardizem PO - Currently on heparin drip for BLE DVT Subdural hematoma (05/29/17) - comgmt with Neurosurgery - CT brain (07/21) --> NO acute findings - h/o SDH during prior admission - continue keppra for seizure prophylaxis HTN (hypertension) - cardizem Depression - cymbalta Colostomy present - family concerned about anal leakage - case d/w Dr. Wetzel (07/24) - Pt underwent Sigmoidoscopy (07/24), colon appears healthy - some diversion colitis, enema every few weeks - possible colostomy reversal once more stable Patient examined. Assessment and plan formulated with Candelaria Long PA-C. I agree with the above. I do not believe this pt is failing xarelto. I think her thigh pain was msk from PT. I spoke with radiology about the comparison of u/s now vs last month. improving flow now. d/c back to snf. Problem Qualifiers (1) DVT (deep venous thrombosis): Qualified Codes: I82.4Y1 - Acute embolism and thrombosis of unspecified deep veins of right proximal lower extremity Candelaria Long Aug 23, 2017 07:52 Armando Garcia MD Aug 24, 2017 09:50
[2017-08-23 08:17] VITALS: BP 140/70; PULSE 88; RESP 20; TEMP 98.2; O2SAT 95
[2017-08-23] MEDS: DILTIAZEM-CD 240 MG CAP ER PO SCH (09:50)
[2017-08-23] MEDS: levETIRAcetam 500 MG TAB PO SCH ×2 (09:50→22:38)
[2017-08-23] MEDS: POTASSIUM CHLORIDE 10 MEQ CONTROLLED RELEASE TAB PO SCH (09:50)
[2017-08-23] MEDS: DIGOXIN 0.125 MG TAB PO SCH (09:50)
[2017-08-23] MEDS: FUROSEMIDE 20 MG TAB PO SCH ×2 (09:51→17:05)
[2017-08-23] MEDS: DULoxetine HCl DR 30 MG CAP PO SCH (09:51)
[2017-08-23] MEDS: PANTOPRAZOLE SOD 40 MG DELAYED RELEASE TAB PO SCH (09:51)
[2017-08-23 12:04] LABS: APTT (PATIENT) 49.2 SEC (24.3-30.1)
[2017-08-23] MEDS ORDERED: XARE20TA PO (12:04)
--- NOTE | 2017-08-23 12:06 | HHI.DCPOC ---
Discharge Care Plan Diagnosis: (1) DVT (deep venous thrombosis) Goals to Promote Your Health * To prevent worsening of your condition and complications * To maintain your health at the optimal level Directions to Meet Your Goals Take your medications as prescribed Follow your dietary instruction Follow activity as directed Keep your appointments as scheduled Take your immunizations and boosters as scheduled If your symptoms worsen call your PCP, if no PCP go to Urgent Care Center or Emergency Room Smoking is Dangerous to Your Health. Avoid second hand smoke Call the 24-hour hour crisis hotline for domestic abuse at Candelaria Long Aug 23, 2017 12:06
--- NOTE | 2017-08-23 12:11 | HHI.DS ---
Discharge Summary Admission Date Aug 23, 2017 at 10:57 Discharge Date: Aug 24, 2017 Admitting Diagnosis DVT (1) DVT (deep venous thrombosis) ICD Codes: I82.409 - Acute embolism and thrombosis of unspecified deep veins of unspecified lower extremity Status: Acute Consultants Dr. Horn Procedures none Brief History Patient is a pleasant 76-year-old female patient had a recent prolonged hospitalization at [place] 05/29 through 07/01/17. During that hospitalization patient was initially admitted due to a small subdural hemorrhage after slip and fall with head trauma while on Coumadin due to Atrial Fibrillation. On that admission INR was 4.5. Patient was evaluated by neurosurgery and only conservative management was recommended. Unfortunately, patient's hospitalization was complicated by atrial fibrillation with rapid ventricular response. Patient also developed right lower lobe pneumonia with respiratory failure requiring mechanical ventilation. Prior to discharge patient underwent thoracentesis for pleural effusion. Patient was transferred to [facility] then had seizure activity and was readmitted to ICU. Started on Keppra stablized then discharged to [facility]. Patient readmitted to [place] due to the ER due to outpatient study showing bilateral DVTs. Workup in the ER confirms bilateral DVTs and patient is also found to have bilateral pulmonary emboli. Case discussed with Dr. Peterson. He was the neurologist on the case during previous admission. Dr. Peterson will consult and advises anticoagulation. Patient was back at [facility] undergoing PT. Patient reports that she has been having aggressive PT. Patient reports that for the last few days after PT she has been having mild pain right upper thigh anterior surface. Pain is worse after PT. At this time patient reports that the pain has resolved and is no longer present. Patient had outpatient US BLE which revealed nonocclusive BLE DVT. Patient then sent to ER. Patient was started on heparin IV by ER. Repeat BLE US revealed: - US bilateral lower extremities (08/22/17) reviewed and reveals: Right leg Evidence of deep venous thrombosis in the femoral vein and popliteal vein with no augmentation of flow and noncompressibly of the vessel with intraluminal echogenic thrombus. Left Evidence of diffuse sclerosis of the femoral vein and popliteal vein with no augmentation of flow and noncompressibilty of the vessel with intraluminal echogenic thrombus. Patient denies fevers, chills, N/V/D/C, increasing BLE edema, SOB or chest pain. CBC/BMP: 08/23/17 0255 08/23/17 0255 Significant Findings Laboratory Tests Test 08/22/17 20:15 08/23/17 02:55 08/23/17 05:30 08/23/17 11:00 Hemoglobin 15.4 GM/DL (11.6-15.3) Monocytes (%) (Auto) 8.2 % (0.0-8.0) 8.3 % (0.0-8.0) Prothrombin Time 13.9 SEC (9.8-11.6) Activated Partial Thromboplast Time 34.0 SEC (24.3-30.1) 232.0 SEC (24.3-30.1) 75.1 SEC (24.3-30.1) 49.2 SEC (24.3-30.1) Blood Urea Nitrogen 23 MG/DL (7-18) 22 MG/DL (7-18) Random Glucose 107 MG/DL (74-106) 123 MG/DL (74-106) Albumin 3.3 GM/DL (3.4-5.0) Alkaline Phosphatase 134 U/L (45-117) Estimat Glomerular Filtration Rate 68 ML/MIN (>89) Imaging Last Impressions Chest X-Ray 08/22/172002 Signed Impressions: Service Date/Time: Tuesday, August 22, 2017 20:45 - CONCLUSION: 1. Small area of new infiltrate in the right costophrenic angle. 2. Stable scarring in the lateral right midlung. Raad Mercedes MD Lower Extremity Ultrasound 08/22/17 0000 Signed Impressions: Service Date/Time: Tuesday, August 22, 2017 21:39 - CONCLUSION: Positive for deep venous thrombosis bilateral lower extremity. Raad Mercedes MD PE at Discharge GENERAL: This is a well-nourished, well-developed patient, in no apparent distress. SKIN: No rashes, ecchymoses or lesions. Cool and dry. HEAD: Atraumatic. Normocephalic. No temporal or scalp tenderness. EYES: Extraocular motions intact. No scleral icterus. No injection or drainage. CARDIOVASCULAR: Irregularly irregular RESPIRATORY: Clear to auscultation. Breath sounds equal bilaterally. colostomy present. No hepato-splenomegaly, or palpable masses. No guarding. MUSCULOSKELETAL: Extremities without clubbing, cyanosis, or edema. No joint tenderness, effusion, or edema noted. No calf tenderness. Negative Homans sign bilaterally. NEUROLOGICAL: Awake and alert. No focal deficits. Motor and sensory grossly within normal limits. 4-5 out of 5 muscle strength in all muscle groups. Normal speech. Hospital Course DVT (deep venous thrombosis) Right thigh pain- resolved - US bilateral lower extremities (08/22/17) reviewed and reveals: Right leg Evidence of deep venous thrombosis in the femoral vein and popliteal vein with no augmentation of flow and noncompressibly of the vessel with intraluminal echogenic thrombus. Left Evidence of diffuse sclerosis of the femoral vein and popliteal vein with no augmentation of flow and noncompressibilty of the vessel with intraluminal echogenic thrombus. - addendum added stating: Interval comparison of the present exam to the prior exam, 07/21/17 was made with specific attention to the evaluation of interval change on the right side. On today's exam there is flow seen within the popliteal vein (no flow within the popliteal vein on prior exam). There is also a thin channel of flow seen in the distal superficial femoral vein (no flow seen in the segment on the prior exam). There remains no augmentation and noncompressibility of the segments. The overall impression is that there is stable or slight improvement in the right DVT. - US bilateral lower extremities (07/21/17) reviewed and revealed: Right leg echogenic noncompressible material from the proximal superficial vein into the trifurcation veins, occlusive in nature. Left lower extremity occlusive thrombus involving the mid and distal superficial femoral vein with nonocclusive thrombus involving the popliteal vein - Patient has been receiving Xarelto since 07/24/17 - pain maybe musculoskeletal in nature, awaiting return call from radiologist to review and compare US from 08/22 to 07/21. - Consultation Hematology for assistance to r/o anticoagulation failure and further anticoagulation recommendations. Recommends continuing Xarelto and has ordered: Factor V Leiden mutation, antithrombin III levels, prothrombin gene mutation and antiphospholipid antibody as well as circulating lupus anticoagulant. Protein C and protein S activity levels ADDENDUM: THIS PT IS NOT FAILING XARELTO. HER DVT IN RIGHT LEG IS ACTUALLY IMPROVED WITH BETTER FLOW THROUGH THE POPLITEAL AND FEMORAL. D/C HEPARIN GTT INITIATED BY ED AND D/C BACK TO SNF ON XARELTO. THIGH PAIN FELT TO BE MSK. DISCUSSED WITH RADIOLOGY AND HEMATOLOGY. HEMATOLOGY ORDERED HYPERCOAG STUDIES THAT WILL BE PENDING AND THEY CAN F/U. I THINK THE PT WILL NEED LIFELONG ANTICOAGULATION EITHER WAY. Resent pulmonary embolism - CTA (07/21) --> 1. The study is positive for significant pulmonary embolism involving the distal left and right main pulmonary artery with extension into multiple segmental vessels involving left upper, left lingula, left lower, right middle, and right lower lobe vessels. 2. Left pleural effusion and scattered areas of patchy opacity in both lower lungs are nonspecific, possibly related to pulmonary infarctions. Multifocal areas of infection or malignancy cannot be excluded. Recommend followup scanning to evaluate for evolution or resolution of these pulmonary abnormalities. - Case d/w Neurosurgery (07/21). Okay to anticoagulate - patient initially on Lovenox therapeutic dosing - changed lovenox to xarelto (07/24) - supportive care Atrial fibrillation - continue PO digoxin and Cardizem PO - Currently on heparin drip for BLE DVT Subdural hematoma (05/29/17) - comgmt with Neurosurgery - CT brain (07/21) --> NO acute findings - h/o SDH during prior admission - continue keppra for seizure prophylaxis HTN (hypertension) - cardizem Depression - cymbalta Colostomy present - family concerned about anal leakage - case d/w Dr. Wetzel (07/24) - Pt underwent Sigmoidoscopy (07/24), colon appears healthy - some diversion colitis, enema every few weeks - possible colostomy reversal once more stable Pt Condition on Discharge: Stable Discharge Disposition: Discharge to SNF Discharge Instructions DIET: Follow Instructions for: Heart Healthy Diet Activities you can perform: Regular-No Restrictions Follow up Referrals: Oncology/Hematology - 2 Weeks with Jose Luis Horn MD PCP Follow-up - [address] Snow New Medications: Rivaroxaban (Xarelto) 20 Mg Tab 20 MG PO DAILY for Blood Clot Prevention, #30 TAB 0 Refills Continued Medications: Digoxin (Digoxin) 0.125 Mg Tab 0.125 MG PO DAILY for Regulate Heart Beat, #30 TAB 0 Refills Diltiazem CD 24 HR (Cardizem CD 24 HR) 240 Mg Caper 240 MG PO DAILY for afib for 30 Days, #[address] (Duloxetine DR) 30 Mg Capdr 30 MG PO DAILY, #30 CAP 0 Refills Furosemide (Furosemide) 20 Mg Tab 20 MG PO BID@09,18 for swelling for 30 Days, TAB Ipratropium-Albuterol Neb (Duoneb) 0.5-2.5 Mg/3 Ml Neb 1 AMPULE NEB Q4HR NEB PRN for SHORTNESS OF BREATH for 30 Days, ML Levetiracetam (Keppra) 500 Mg Tab 500 MG PO Q12HR for Seizure Control, #60 TAB Pantoprazole (Pantoprazole) 40 Mg Tab 40 MG PO DAILY, #30 TAB Potassium Chloride ER (Klor-Con 10) 10 Meq Tab 20 MEQ PO DAILY, #30 TAB Discontinued Medications: Rivaroxaban (Xarelto) 15 Mg Tab 15 MG PO BID for blood clot for 18 Days, #36 TAB 0 Refills after a total of 21 days of Xarelto 15 mg by mouth BID start Xarelto 20 mg by mouth daily Candelaria Long Aug 23, 2017 12:11 Armando Garcia MD Aug 24, 2017 09:52
--- NOTE | 2017-08-23 14:13 | MB ---
cc: TUNDE GONZALEZ MD,BELEN BILL,MARIO Darnell M.D. DATE OF CONSULTATION: 08/23/2017. REASON FOR CONSULTATION: Persistent bilateral lower extremity deep venous thromboses; initially diagnosed in late June,. CURRENT TREATMENT: The patient had been on therapeutic anticoagulation with Xarelto. CHIEF COMPLAINT: Ms. Padilla reported pain in her right leg to her daughter. She was brought into the hospital for further workup and evaluation. HISTORY OF PRESENT ILLNESS: Ms. Padilla is a 76-year-old female with multiple medical comorbid conditions as outlined below. Ms. Padilla was diagnosed in June of 2014 with bilateral lower extremity deep venous thromboses, which at that time were occlusive in nature. She at the same time was diagnosed with pulmonary emboli with involvement of the distal left and right main pulmonary arteries with extension to multiple segmental vessels involving the left upper, left lingular, left lower, right middle, right lower lobe vessels. She was hospitalized at [facility] at that time and was initially treated with infusional heparin followed by transition to oral Xarelto. About a month and half prior to this in early May of 2017 she was diagnosed with a subdural hematoma after she suffered a traumatic fall. The patient had been on anticoagulation at that time for a history of atrial fibrillation. Ms. Padilla who had been a resident of one of the local inpatient rehab facilities reported pain in her right leg to her daughter who was visiting. The daughter reported these symptoms to the charge nurse, the charge nurse obtained an ultrasound Doppler of the leg and found there to be a deep venous thrombosis. The patient was therefore referred to [facility] for further workup and evaluation. Repeat ultrasound Dopplers performed on 08/22/2017 confirmed the presence of persistent DVT. When compared directly to the scans from June the , it appeared there was some improvement with now flow present through the deep venous thrombosis. The patient in the meantime has been initiated on heparin infusion. Oncology / hematology has been asked to see her to render an opinion regarding the effectiveness of Xarelto. PAST MEDICAL HISTORY: 1. Bilateral lower extremity deep venous thromboses. 2. Bilateral pulmonary emboli. 3. Subdural hematoma (post-traumatic). 4. History of atrial fibrillation. 5. Hypertension. 6. Hyperlipidemia. 7. Hiatal hernia. 8. Irritable bowel syndrome. 9. History of splenic infarction. 10. History of depression. 11. Gastroesophageal reflux disease. 12. Colovesical fistula. PAST SURGICAL HISTORY: 1. Laparoscopic loop colostomy. 2. History of removal of blood clot from her lower extremity some years ago performed by Dr. Mo. 3. Cholecystectomy. 4. Bilateral total knee replacement surgery with revision on the left side. 5. Cataracts. FAMILY HISTORY: Her parents are both . Mother of pancreatic carcinoma. Father of a myocardial infarction. ALLERGIES: 1. ZOSYN. 2. TAZOBACTAM. 3. SHE DID HAVE INTOLERANCE TO CODEINE WHICH CAUSES NAUSEA AND VOMITING. 4. CHLORHEXIDINE. SOCIAL HISTORY: The patient retired from [employer], where she worked for over 33 years, last year. She denies tobacco, alcohol or IV drug use. She is presently living in a rehab and prior to that lived at home alone. She is . REVIEW OF SYSTEMS: A thirteen point review of systems was obtained and the patient's major complaints are those of weakness, fatigue, difficulty breathing with exertion. She denies nausea or vomiting or diarrhea. She tells me she has a colostomy. Lower extremities - she reports intermittent pain and swelling. She tells me the pain in her legs is worsened after rehab. No other complaints reported. PHYSICAL EXAMINATION: VITAL SIGNS: Temperature 98.2 degrees Fahrenheit, heart rate 88 beats per minute, respiratory rate 20, blood pressure 140/72 sats 95% on room air. GENERAL PHYSICAL APPEARANCE: Ms. Padilla is an elderly lady, she is laying in bed, she appears to be in no acute distress and has a pleasant disposition. HEAD, EYES, EARS, NOSE, THROAT: Head is atraumatic and normocephalic. Conjunctivae are non-pale. The sclerae are anicteric. Extraocular muscles intact. Pupils equal, round and reactive to light and accommodation. ORAL EXAM: No pharyngeal erythema. NECK EXAM: No palpable cervical or supraclavicular lymphadenopathy. RESPIRATORY EXAM: Good air movement bilaterally. No added breath sounds. CARDIOVASCULAR EXAM: Irregular rhythm. S1, S2. No obvious murmurs, rubs or gallops. ABDOMINAL EXAM: Protuberant belly. Soft. She has a colostomy bag in place. Abdomen is otherwise nontender. No palpable hepatosplenomegaly. LOWER EXTREMITIES: Trace pretibial edema. No calf tenderness. YOUTH SERVICES SPECIALIST: No focal sensory or motor deficits. MUSCULOSKELETAL: No obvious tenderness appreciated or elicited on palpation of the lower extremities. LABORATORY FINDINGS Blood work dated 08/23/2017: WBC count 7.8, hemoglobin 14.4 gm/dL, hematocrit 40%, platelet count is 211,000, absolute neutrophil count is 4.8. Chemistries: Sodium 138, potassium 3.7, chloride 103, bicarb 23.7, BUN 22, creatinine 0.6, random glucose 123, calcium 10, AST 34, ALT 44, alkaline phosphatase 134, albumin 3.3, total protein 7.1. IMAGING STUDIES: Ultrasound Doppler studies of the lower extremities indicate persistent deep venous thrombosis in bilateral lower extremities. Interval comparison of the present exam to the prior exam dated 07/21/2017 with specific attention to evaluate for interval change on the right side and left side. On today's examination. there is flow within the popliteal vein whereas previously there was no flow on the prior exam. There is also a thin channel of flow seen in the distal superficial femoral vein, previously there was no flow. There remains no augmentation or compressibility of the segments. Overall the impression is that there is stable or slight improvement in the DVT on the right side. ASSESSMENT: Ms. Padilla is a 76-year-old female with a host of medical comorbid conditions as has been outlined above. Over the past one year, it appears she has had recurrent hospitalizations and what her daughter describes as a general decline. 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 For the past two or three months, she has been a resident of a assisted facility and has shown minimal progress as far as improving her physical endurance and physical capabilities. She has had various medical issues which have occurred over the past several months and this includes developing a subdural hematoma after a traumatic injury to her head. She was on anticoagulation at that time. This occurred in early May. She was treated conservatively. In June of 2017, she developed bilateral lower extremity deep venous thrombosis complicated by some massive bilateral pulmonary emboli, after careful consideration and reevaluation by neurosurgery, she was resumed on anticoagulation and was transitioned to outpatient oral Xarelto in late June. She had minimal improvement in her endurance. She continues to feel fatigued and short of breath with minimal exertion. Yesterday while at the custodial, she complained of right-sided leg pain and underwent ultrasound Doppler studies at the custodial which not surprisingly revealed a deep venous thrombosis. She was emergently transferred to [facility] for further evaluation by the charge nurse at the rehab facility (the daughter admits she encouraged the transfer for further and thorough evaluation). The patient's leg pain has since resolved. Ultrasound Doppler studies performed at [facility] on 08/22: When compared to the scans from 07/21, indicate an interval improvement in the deep venous thrombosis as there is now flow of blood appreciated in the common femoral vein as well as the popliteal vein. The hematology service has been asked to see her to determine if the change in anticoagulation modality is warranted at this time. RECOMMENDATIONS: 1 Deep venous thrombosis involving the lower extremities: The blood clots are now in chronic phase. I did talk to the patient's daughter and the patient herself. I explained that chronic deep venous thromboses can take months if not years to dissolve, and in many cases they never completely resolved and residual thrombosis is often appreciable years into anticoagulation. I did however express my concern of her developing recurrent deep venous thromboses; apparently some years ago she required thrombectomy of the lower extremities. I am not certain what provoked a blood clot in June. I have therefore ordered a prothrombotic workup, which was ordered. The blood tests ordered include Factor V Leiden mutation, antithrombin III levels, prothrombin gene mutation and antiphospholipid antibody as well as circulating lupus anticoagulant. Protein C and protein S activity levels were also ordered. I would recommend discontinuation of heparin and resumption of Xarelto, which I think was working reasonably well. There is no evidence to suggest Xarelto had failed. MD LUC Delarosa/ABRIL /1:04 PM /1:53 PM
[2017-08-23 16:00] VITALS: BP 113/64; PULSE 72; RESP 18; TEMP 97.8; O2SAT 97
[2017-08-23] MEDS: RIVAROXABAN 20 MG TAB PO SCH (16:59)
[2017-08-23 19:06] VITALS: BP 122/56; PULSE 79; RESP 17; TEMP 98.7; O2SAT 95
[2017-08-23 19:50] LABS: APTT (PATIENT) 31.6 SEC (24.3-30.1)
[2017-08-23 23:22] VITALS: BP 106/54; PULSE 80; RESP 17; TEMP 97.9; O2SAT 96
--- NOTE | 2017-08-24 01:00 | EKG ---
Date Performed: 08/22/2017 Time Performed: 20:19:27 PTAGE: 76 years EKG: ATRIAL FIBRILLATION MODERATE T-WAVE ABNORMALITY, CONSIDER ANTEROLATERAL ISCHEMIA ABNORMAL E CG PREVIOUS TRACING : 07/21/2017 18.28 Compared to the previous tracing, rate is now controlled DOCTOR: Kiko Quiles Interpretating Date/Time 08/24/2017 00:59:35
[2017-08-24 03:15] VITALS: BP 123/64; PULSE 84; RESP 17; TEMP 97.2; O2SAT 96
[2017-08-24 08:00] VITALS: BP 110/70; PULSE 99; RESP 18; TEMP 97.7; O2SAT 97
[2017-08-24] MEDS: DILTIAZEM-CD 240 MG CAP ER PO SCH (09:07)
[2017-08-24] MEDS: levETIRAcetam 500 MG TAB PO SCH (09:07)
[2017-08-24] MEDS: DIGOXIN 0.125 MG TAB PO SCH (09:07)
[2017-08-24] MEDS: DULoxetine HCl DR 30 MG CAP PO SCH (09:07)
[2017-08-24] MEDS: RIVAROXABAN 20 MG TAB PO SCH (09:08)
[2017-08-24] MEDS: FUROSEMIDE 20 MG TAB PO SCH (09:08)
[2017-08-24] MEDS: PANTOPRAZOLE SOD 40 MG DELAYED RELEASE TAB PO SCH (09:08)
[2017-08-24] MEDS: POTASSIUM CHLORIDE 10 MEQ CONTROLLED RELEASE TAB PO SCH (09:08)
[2017-08-24 12:00] VITALS: BP 103/62; PULSE 78; RESP 18; TEMP 96.9; O2SAT 100
[2017-08-26 13:52] LABS: BETA2 GLYCOPROTEIN I AB IGA LESS THAN 9.0 SAU (< OR = 20)
[2017-08-26 17:55] LABS: THROMBIN TIME FOR LA 16 sec (13-19)
== END 2017-08-24 13:27 | DRG 301 ==
LOC: NEPC 19:43 → NEDA 21:06 → INTOOBSV 21:06 → NEPFCDU 22:42 → OBSVTOIN 08-23 10:57 → N06A 08-23 12:53
PROVIDERS: ADMIT Hospitalist; ATTEND Hospitalist
PROC: 3E0F7GC Introduction of Other Therapeutic Substance into Respiratory Tract, Via Natural or Artificial Opening (ICD-10-PCS; principal; 2017-08-23)
DX: I82.433 Acute embolism and thrombosis of popliteal vein, bilateral (principal); I82.413 Acute embolism and thrombosis of femoral vein, bilateral; I11.0 Hypertensive heart disease with heart failure; I50.9 Heart failure, unspecified; I48.2 Chronic atrial fibrillation; M19.90 Unspecified osteoarthritis, unspecified site; Z86.718 Personal history of other venous thrombosis and embolism; Z86.711 Personal history of pulmonary embolism; K21.9 Gastro-esophageal reflux disease without esophagitis; K44.9 Diaphragmatic hernia without obstruction or gangrene; E04.9 Nontoxic goiter, unspecified; K58.9 Irritable bowel syndrome, unspecified; Z96.653 Presence of artificial knee joint, bilateral; F32.9 Major depressive disorder, single episode, unspecified; G47.33 Obstructive sleep apnea (adult) (pediatric); E78.5 Hyperlipidemia, unspecified; Z88.0 Allergy status to penicillin; R56.9 Unspecified convulsions; Z87.820 Personal history of traumatic brain injury; Z82.49 Family history of ischemic heart disease and other diseases of the circulatory system; Z74.01 Bed confinement status; Z93.3 Colostomy status; Z79.01 Long term (current) use of anticoagulants; Z80.8 Family history of malignant neoplasm of other organs or systems
CPT/HCPCS: 71010; 80048; 80053; 81240; 81241; 82272; 85025; 85300; 85303; 85306; 85597; 85598; 85610; 85613; 85670; 85730; 86146; 86147; 86148; 93005; 93970; 96365; 96372; G0378; J1644

== ENCOUNTER 2017-09-23 16:45 | Observation (INO) | payer MEDICARE ==
[~2017-09-23] VITALS: Ht 170.2 cm; Wt 75.0 kg
[~2017-09-23 16:45] MED LIST changes: -CEFT1INJ2 IV; -XARE15TA PO; +XARE20TA PO
[2017-09-23 16:49] VITALS: BP 195/86; PULSE 112; RESP 22; TEMP 97.9; O2SAT 99
--- NOTE | 2017-09-23 17:13 | PD ---
HPI Chief Complaint: Head Injury Time Seen by Provider: 17:01 Travel History International Travel<30 days: No Contact w/Intl Traveler<30days: No Traveled to known affect area: No History of Present Illness HPI 76-year-old female presents to the emergency department with family at bedside for evaluation after a fall that occurred just prior to arrival. Patient was at Dr. Apple's office. She was in the parking lot when she states she lost her balance and fell hitting the back of her head. Patient denies any loss of consciousness. She denies any syncopal episodes. She denies any dizziness, chest pain, shortness of breath. She complains of some mild pain to the occipital scalp as well as lower back pain. She currently rates the pain 5/10. She states she did not walk after the fall, only to transfer to the stretcher here in the hospital. She does have history of intracranial hemorrhage in April of this year. She was on Coumadin at that time. Now she is on Xarelto. Patient denies any other injury or complaints at this time. Moderate severity. No exacerbating or alleviating factors. PFSH Past Medical History Hx Anticoagulant Therapy: Yes (XARELTO) Arthritis: Yes Asthma: No Atrial Fibrillation: Yes Autoimmune Disease: No Blood Disorders: No Anxiety: No Depression: No Heart Rhythm Problems: Yes (A FIB) Cancer: No Cardiovascular Problems: Yes (AFIB, CHF, SC , HTN) High Cholesterol: Yes Chemotherapy: No Chest Pain: No Congestive Heart Failure: Yes (DIGOXIN) COPD: No Cerebrovascular Accident: Yes Diabetes: No Diminished Hearing: No Deep Vein Thrombosis: Yes (+RLE DVT (08/22/17) hx of DVT's and PE's) Endocrine: No Gastrointestinal Disorders: Yes (HX DIVERTICULITIS) GERD: Yes Genitourinary: No Headaches: No Hiatal Hernia: Yes Heparin Induced Thrombocytopen: No Hypertension: Yes Immune Disorder: No Implanted Vascular Access Dvce: Yes Kidney Stones: No Musculoskeletal: No Neurologic: No Psychiatric: No Reproductive: No Respiratory: No Immunizations Current: Yes Migraines: No Radiation Therapy: No Renal Failure: No Seizures: No Sickle Cell Disease: No Sleep Apnea: No Thyroid Disease: No Ulcer: No Menopausal: Yes Past Surgical History Abdominal Surgery: Yes (Fistula fix; colostomy placement; gallbladder removal) AICD: No Arteriovenous Shunt: No Body Medical Devices: COLOSTOMY BAG APR 2016 Cardiac Surgery: No Cholecystectomy: Yes Ear Surgery: No Endocrine Surgery: No Eye Surgery: Yes (cataract bilateral) Genitourinary Surgery: No Gynecologic Surgery: No Insulin Pump: No Joint Replacement: Yes (BILATERAL KNEE) Neurologic Surgery: No Oral Surgery: No Pacemaker: No Thoracic Surgery: No Other Surgery: Yes Social History Alcohol Use: No Tobacco Use: No Substance Use: No Allergies-Medications (Allergen,Severity, Reaction): Coded Allergies: codeine (Verified Allergy, Severe, NAUSEA, 09/23/17) chlorhexidine (Verified Allergy, Intermediate, Rash, , 09/23/17) piperacillin (Verified Allergy, Intermediate, Rash, 09/23/17) tazobactam (Verified Allergy, Intermediate, Rash, 09/23/17) Reported Meds & Prescriptions Reported Meds & Active Scripts Active Xarelto (Rivaroxaban) 20 Mg Tab 20 Mg PO DAILY Furosemide 20 Mg Tab 20 Mg PO BID@09,18 30 Days Keppra (Levetiracetam) 500 Mg Tab 500 Mg PO Q12HR Cardizem CD 24 HR (Diltiazem CD 24 HR) 240 Mg Caper 240 Mg PO DAILY 30 Days Pantoprazole (Pantoprazole Sodium) 40 Mg Tab 40 Mg PO DAILY Klor-Con 10 (Potassium Chloride) 10 Meq Tab 20 Meq PO DAILY Duoneb (Ipratropium-Albuterol Neb) 0.5-2.5 Mg/3 Ml Neb 1 Ampule NEB Q4HR NEB PRN 30 Days Reported Digoxin 0.125 Mg Tab 0.125 Mg PO DAILY Duloxetine DR (Duloxetine HCl) 30 Mg Capdr 30 Mg PO DAILY Review of Systems Except as stated in HPI: all other systems reviewed are Neg Physical Exam Narrative GENERAL: Well-nourished, well-developed elderly female patient, afebrile. SKIN: Focused skin assessment warm/dry. Patient has hematoma to the central scalp with abrasion. HEAD: Normocephalic. ENT: Mucosa pink and moist. No erythema or exudates. No uvular edema. No uvular , palatal, or tonsillar deviation. Airway patent. Nasal turbinates appear normal without nasal blood, purulent drainage or septal hematoma. Bilateral tympanic membranes are clear without erythema or perforation. EYES: No scleral icterus. No injection or drainage. NECK: Supple, trachea midline. No JVD or lymphadenopathy. CARDIOVASCULAR: Regular rate and rhythm without murmurs, gallops, or rubs. RESPIRATORY: Breath sounds equal bilaterally. No accessory muscle use. Lungs sounds are clear to auscultation. GASTROINTESTINAL: Abdomen soft, non-tender, nondistended. MUSCULOSKELETAL: No cyanosis, or edema. BACK: Nontender without obvious deformity. No CVA tenderness. Data Data Last Documented VS Vital Signs Date Time Temp Pulse Resp B/P (MAP) Pulse Ox O2 Delivery O2 Flow Rate FiO2 09/23/17 20:21 85 15 140/79 (99) 100 Room Air 09/23/17 16:[address] Brain W/O Iv Contrast(Rout) (09/23/17 ) Ct Cerv Spine W/O Contrast (09/23/17 ) Spine, Lumbar - Ltd (Ap & Lat) (09/23/17 ) Pelvis, Ap Only (Routine) (09/23/17 ) Acetamin-Hydrocod 325-5 Mg ([place] 5-325 (09/23/17 18:15) Ct Lumb Spine W/O Contrast (09/23/17 ) Ct Pelvis W/O Iv Contrast (09/23/17 ) Ondansetron Inj (Zofran Inj) (09/23/17 19:45) Morphine Inj (Morphine Inj) (09/23/17 20:15) Complete Blood Count With Diff (09/23/17 21:14) Basic Metabolic Panel (Bmp) (09/23/17 21:14) MDM Medical Decision Making Medical Screen Exam Complete: Yes Emergency Medical Condition: Yes Medical Record Reviewed: Yes Interpretation(s) Last Impressions Pelvis X-Ray 09/23/17 0000 Signed Impressions: Service Date/Time: Saturday, September 23, 2017 17:20 - CONCLUSION: 1. No acute fracture or dislocation. Consider CT or MRI examination if patient is unable to bear weight on the affected side. James Doty MD Lumbar Spine X-Ray 09/23/17 0000 Signed Impressions: Service Date/Time: Saturday, September 23, 2017 17:20 - CONCLUSION: 1. No acute fracture or subluxation. 2. Multilevel degenerative spondylosis of the lumbar spine most prominently at L4-S1. James Doty MD Head CT 12/27/17 0000 Signed Impressions: Service Date/Time: Saturday, September 23, 2017 17:29 - CONCLUSION: 1. No acute intracranial normality. James Doty MD Cervical Spine CT 09/23/17 0000 Signed Impressions: Service Date/Time: Saturday, September 23, 2017 17:29 - CONCLUSION: 1. No acute fracture or subluxation. 2. Advanced degenerative spondylosis of the cervical spine. 3. Prominent carotid artery calcifications. 4. Subcentimeter bilateral thyroid nodules. James Doty MD CT lumbar spine - CONCLUSION: 1. Questionable L2 inferior endplate fracture, as above. Consider MRI examination particularly if the patient has tenderness on palpation of the L2 spinous process. 2. Advanced multilevel degenerative spondylosis of the lumbar spine. Ct pelvis - CONCLUSION: 1. 6.1 x 7.6 cm soft tissue hematoma in the right inferior gluteal region without associated acute bony fracture. Differential Diagnosis closed head injury versus intracranial abnormality versus contusion versus abrasion Narrative Course 76-year-old female presents to the emergency department for evaluation after a fall that occurred just prior to arrival. CT of the brain and cervical spine are ordered and pending. X-ray of the lumbar spine and pelvis are ordered and pending. CT of the brain shows no acute intracranial abnormality. CT of the cervical spine shows no acute fracture or subluxation. X-ray of the lumbar spine shows no acute fracture or subluxation. X-ray of the pelvis shows no acute fracture or dislocation. Patient is given Lortab 5/325 mg by mouth for pain. Patient was unable to walk due to back pain. CT of the lumbar spine and CT of the pelvis without contrast are ordered and pending. CT lumbar spine shows a questionable L2 inferior endplate fracture, consider MRI examination. CT pelvis without contrast shows a 6.1 x 7.6 cm soft tissue hematoma in the right inferior gluteal region without associated acute bony fracture. Patient will be admitted for 23 observation for MRI, pain management. She verbalizes agreement to this. Dr. Masters accepted admission. Diagnosis Primary Impression: Defect of endplate of vertebra Additional Impression: Closed head injury Qualified Codes: S09.90XA - Unspecified injury of head, initial encounter Admitting Information Admitting Physician Requests: Observation Debora Huber Sep 23, 2017 17:13
--- NOTE | 2017-09-23 17:36 | RADRPT ---
EXAM DATE/TIME: 09/23/2017 17:20 [facility] COMPARISON: PELVIS AP ONLY, May 30, 2017, 17:10. INDICATIONS : Patient complains of pelvic pain status post fall. MEDICAL HISTORY : None. SURGICAL HISTORY : None. ENCOUNTER: Initial ACUITY: 1 day PAIN SCORE: 8/10 LOCATION: Pelvis FINDINGS: A single frontal view of the pelvis demonstrates no evidence of fracture. The bony pelvic ring is in tact. Bony mineralization is normal. Surgical clips in the right femoral region. Degenerative friedman es about the hips bilaterally. The soft tissues are intact. CONCLUSION: 1. No acute fracture or dislocation. Consider CT or MRI examination if patient is unable to bear weig ht on the affected side. James Doty MD on September 23, 2017 at 17:32 Board Certified Radiologist. This report was verified electronically.
--- NOTE | 2017-09-23 17:38 | RADRPT ---
EXAM DATE/TIME: 09/23/2017 17:20 [facility] COMPARISON: No previous studies available for comparison. INDICATIONS : Patient complains of lumbar pain. MEDICAL HISTORY : None. SURGICAL HISTORY : None. ENCOUNTER: Initial ACUITY: 1 day PAIN SCORE: 8/10 LOCATION: L-Spine FINDINGS: 5 lumbar type II bodies. Vertebral body heights are intact without evidence for acute bony fracture. Sagittal alignment is maintained. There is moderate degenerative spondylosis of the lumbar spine with prominent anterolateral flowing osteophytes in the upper lumbar spine and disc space narrowing with posterior osteophytes at L4-5 and L5-S1. There is also multilevel facet arthropathy. Soft tissues are grossly unremarkable. Sacral arches are intact. Diffuse atherosclerotic ossifications of the abdomin al aorta. CONCLUSION: 1. No acute fracture or subluxation. 2. Multilevel degenerative spondylosis of the lumbar spine most prominently at L4-S1. James Doty MD on September 23, 2017 at 17:34 Board Certified Radiologist. This report was verified electronically.
--- NOTE | 2017-09-23 17:40 | RADRPT ---
EXAM DATE/TIME: 09/23/2017 17:29 [facility] COMPARISON: CT BRAIN W/O CONTRAST, July 21, 2017, 16:03. INDICATIONS : Trauma; fall. RADIATION DOSE: 47.36 CTDIvol (mGy) MEDICAL HISTORY : Stroke. Cardiovascular disease Hypertension.Subdural hematoma. SURGICAL HISTORY : None. ENCOUNTER: Initial ACUITY: 1 day PAIN SCALE: 5/10 LOCATION: cranial TECHNIQUE: Multiple contiguous axial images were obtained of the head. Using automated exposure control and adj ustment of the mA and/or kV according to patient size, radiation dose was kept as low as reasonably a chievable to obtain optimal diagnostic quality images. DICOM format image data is available electro nically for review and comparison. FINDINGS: CEREBRUM: Mild to moderate diffuse cerebral volume loss. The ventricles are normal for degree of atrophy. No e vidence of midline shift, mass lesion, hemorrhage or acute infarction. No extra-axial fluid collecti ons are seen. POSTERIOR FOSSA: The cerebellum and brainstem are intact. The 4th ventricle is midline. The cerebellopontine angle i s unremarkable. EXTRACRANIAL: The visualized portion of the orbits is intact. Small posterior occipital scalp hematoma. SKULL: The calvaria is intact. No evidence of skull fracture. CONCLUSION: 1. No acute intracranial normality. James Doty MD on September 23, 2017 at 17:37 Board Certified Radiologist. This report was verified electronically.
--- NOTE | 2017-09-23 17:47 | RADRPT ---
EXAM DATE/TIME: 09/23/2017 17:29 [facility] COMPARISON: No previous studies available for comparison. INDICATIONS : Trauma; fall. RADIATION DOSE: 42.14 CTDIvol (mGy) MEDICAL HISTORY : Stroke. Hypertension. Cardiovascular diseasesupdural hematoma SURGICAL HISTORY : None. ENCOUNTER: Initial ACUITY: 1 day PAIN SCALE: 5/10 LOCATION: Bilateral neck TECHNIQUE: Volumetric scanning of the cervical spine was performed. Multiplanar reconstructions in the sagittal, coronal and oblique axial planes were performed. Using automated exposure control and adjustment o f the mA and/or kV according to patient size, radiation dose was kept as low as reasonably achievable to obtain optimal diagnostic quality images. DICOM format image data is available electronically f or review and comparison. FINDINGS: Vertebral body heights are maintained. Osseous structures are intact without evidence for acute bony fracture. Dens is intact. Sagittal alignment is maintained. There is a normal C1-2 relationship. Face ts are normally aligned. There is no significant prevertebral soft tissue hematoma. There is advanced multilevel degenerative spondylosis of the cervical spine with multilevel facet arthropathy. This is most prominent at C4-6. No significant cervical adenopathy or gross mass. Subcentimeter bilateral th yroid nodules. Prominent carotid artery calcifications. Visualized lung apices are clear without pneu mothorax. CONCLUSION: 1. No acute fracture or subluxation. 2. Advanced degenerative spondylosis of the cervical spine. 3. Prominent carotid artery calcifications. 4. Subcentimeter bilateral thyroid nodules. James Doty MD on September 23, 2017 at 17:43 Board Certified Radiologist. This report was verified electronically.
[2017-09-23] MEDS ORDERED: ACETAMINOPHEN/HYDROcodone 325 MG/5 MG TAB PO ONE (18:15)
[2017-09-23] MEDS ORDERED: MORPHINE SULFATE 4 MG/ML INJ IM ONE (19:45)
[2017-09-23] MEDS ORDERED: ONDANSETRON HCL 4 MG/2 ML VIAL IM ONE (19:45)
[2017-09-23] MEDS ORDERED: MORPHINE SULFATE 2 MG/ML INJ IM ONE (20:15)
[2017-09-23 20:21] VITALS: BP 140/79; O2SAT 100
--- NOTE | 2017-09-23 21:02 | RADRPT ---
EXAM DATE/TIME: 09/23/2017 19:58 This report includes an Addendum and supersedes previous reports for this exam. [facility] COMPARISON: No previous studies available for comparison. INDICATIONS : Low back pain due to fall. RADIATION DOSE: 35.49 CTDIvol (mGy) MEDICAL HISTORY : Hypertension. Cardiovascular disease Deep venous thrombosis. SURGICAL HISTORY : Cholecystectomy. ENCOUNTER: Initial ACUITY: 1 day PAIN SCALE: 8/10 LOCATION: Bilateral lower back TECHNIQUE: Volumetric scanning of the lumbar spine was performed. Multiplanar reconstructions in the sagittal, coronal and oblique axial planes were performed. Using automated exposure control and adjustment of the mA and/or kV according to patient size, radiation dose was kept as low as reasonably achievable t o obtain optimal diagnostic quality images. DICOM format image data is available electronically for review and comparison. FINDINGS: There is questionable disruption of the inferior endplate at L2. This may reflect a small Schmorl's n ode. Otherwise, vertebral body heights are intact. No additional acute bony fracture identified. Cent ral bony canal is grossly patent. Facets are normally aligned. Sagittal alignment is maintained. Adva nced degenerative spondylosis of the lower lumbar spine with disc space narrowing, osteophyte formati on and multilevel facet arthropathy. Paraspinal soft tissues demonstrate no acute abnormality. CONCLUSION: 1. Questionable L2 inferior endplate fracture, as above. Consider MRI examination particularly if the patient has tenderness on palpation of the L2 spinous process. 2. Advanced multilevel degenerative spondylosis of the lumbar spine. James Dtoy MD on September 23, 2017 at 20:57 Board Certified Radiologist. This report was verified electronically. ADDENDUM: Upon reexamination of the study, there is a fracture involving the L5 superior endplate extending ant eriorly along the right anterior vertebral body towards the inferior endplate. This is better demonst rated on MRI exam. James Doty MD on September 23, 2017 at 23:03 Board Certified Radiologist. This report was verified electronically.
--- NOTE | 2017-09-23 21:06 | RADRPT ---
EXAM DATE/TIME: 09/23/2017 20:00 [facility] COMPARISON: CT PELVIS W/O CONTRAST, May 31, 2017, 9:52. INDICATIONS : Pelvic pain due to fall. ORAL CONTRAST: No oral contrast ingested. RADIATION DOSE: 12.00 CTDIvol (mGy) MEDICAL HISTORY : Hypertension. Deep venous thrombosis. Cardiovascular disease SURGICAL HISTORY : Cholecystectomy. ENCOUNTER: Initial ACUITY: 1 day PAIN SCALE: 8/10 LOCATION: Bilateral hips TECHNIQUE: Volumetric scanning of the pelvis was performed. Using automated exposure control and adjustment of the mA and/or kV according to patient size, radiation dose was kept as low as reasonably achievable t o obtain optimal diagnostic quality images. DICOM format image data is available electronically for review and comparison. FINDINGS: BOWEL/MESENTERY: The visualized small and large bowel demonstrate no acute abnormality. There is no free fluid. BLADDER: There is no wall thickening or mass. RETROPERITONEUM: There is no aneurysm or lymphadenopathy. REPRODUCTIVE: Within normal limits. INGUINAL: There is no lymphadenopathy or hernia. MUSCULOSKELETAL: There is a 6.1 x 7.6 cm soft tissue hematoma in the right inferior gluteal region Osseous structures are intact without evidence for acute bony fracture. Specifically, no definitive pubic ramus or sacra l fracture. CONCLUSION: 1. 6.1 x 7.6 cm soft tissue hematoma in the right inferior gluteal region without associated acute nathanael ny fracture. James Doty MD on September 23, 2017 at 21:01 Board Certified Radiologist. This report was verified electronically.
--- NOTE | 2017-09-23 21:36 | HHI.HP ---
HPI Service [facility] Hospitalists Primary Care Physician Shad Apple M.D. Admission Diagnosis L2 endplate fracture; closed head injury Chief Complaint: fall, back pain Travel History International Travel<30 Days: No Contact w/Intl Traveler <30 Da: No Traveled to Known Affected Are: No History of Present Illness 76-year-old female multiple medical issues and recent health-related complications presents to the emergency department with family at bedside for evaluation after a fall that occurred just prior to arrival. Patient was at Dr. Apple's (her PCP) office. She was in the parking lot about to enter his office when she states she lost her balance and fell hitting the back of her head. Patient denies any loss of consciousness. She denies any syncopal episodes. She denies any dizziness, chest pain, shortness of breath. She complains of some mild pain to the occipital scalp but primarily lower back pain. No loss of bowel or bladder function. She currently rates the pain 5/ 10. She states she did not walk after the fall, only to transfer to the stretcher here in the hospital. She does have history of intracranial hemorrhage in April of this year. She was on Coumadin at that time. Now she is on Xarelto and pulmonary emboli. She was evaluated by hematology during hospitalization in late July and at that time Xarelto was reinitiated as the benefit was thought to outweigh risk. Patient is generally guarded quite well by her son when ambulating but today he says in the parking lot and he turned away for "only a moment". Patient denies any other injury or complaints at this time. CT evaluation reveals no acute findings cervical spine or brain however she question of an L2 endplate fracture in MRI is suggested. She is unable to ambulate presently due to the pain. Review of Systems Constitutional: COMPLAINS OF: Fatigue, Dizziness, DENIES: Diaphoretic episodes , Fever, Weight gain, Weight loss, Chills, Change in appetite, Night Sweats Eyes: COMPLAINS OF: Blurred vision, DENIES: Diplopia, Eye inflammation, Eye pain, Vision loss, Photosensitivity, Double Vision Ears, nose, mouth, throat: COMPLAINS OF: Hearing loss Respiratory: DENIES: Apneas, Cough, Snoring, Wheezing, Hemoptysis, Sputum production, Shortness of breath Cardiovascular: COMPLAINS OF: Lower Extremity Edema, DENIES: Chest pain, Palpitations, Syncope, Dyspnea on Exertion, PND, Orthopnea, Claudication Musculoskeletal: COMPLAINS OF: Joint pain, Back pain Hematologic/lymphatic: COMPLAINS OF: Bruising Neurologic: COMPLAINS OF: Abnormal gait, Poor Balance Psychiatric: COMPLAINS OF: Anxiety Past Family Social History Past Medical History DVT and PE 07/21/17, persistent DVT noted in late July. Recent right tentorium subdural hematoma/subcortical hemorrhage involving the right parietal field 05/29/17 Recent treatment for left lower lobe pneumonia Gastroesophageal reflux disease Hypertension Dyslipidemia Chronic atrial fibrillation CHADVASC 5. Pt was off anticoagulation d/t recent admission with SDH, but was laid back on Xarelto in late July. Obstructive sleep apnea Hiatal hernia IBS History of splenic infarction History of DVT bilateral lower extremity status post embolectomy Depression Past Surgical History Lap-assisted loop colostomy with revision by Dr. Wetzel History of lower extremity embolectomy by Dr. 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 HEAD: Left posterior scalp contusion is noted. Normocephalic. No temporal or scalp tenderness. EYES: Pupils equal round and reactive. Extraocular motions intact. No scleral icterus. No injection or drainage. ENT: Nose without bleeding, purulent drainage or septal hematoma. Airway patent. NECK: Trachea midline. No JVD or lymphadenopathy. Supple, nontender, no meningeal signs. CARDIOVASCULAR: Irregular without significant murmur. RESPIRATORY: Clear to auscultation. Breath sounds equal bilaterally. No wheezes , rales, or rhonchi. GASTROINTESTINAL: Abdomen soft, non-tender, nondistended. No hepato-splenomegaly , or palpable masses. No guarding. MUSCULOSKELETAL: Extremities without clubbing, cyanosis. Venous stasis dermatitis bilateral lower extremities. 1+ edema distal lower extremity. No calf tenderness. Tenderness to palpation over lower mid back. NEUROLOGICAL: Awake and alert. Cranial nerves II through XII intact. Motor and sensory grossly within normal limits. Five out of 5 muscle strength in all muscle groups. Normal speech. Negative straight leg test. Imaging Last 72 hours Impressions Pelvis X-Ray 09/23/17 0000 Signed Impressions: Service Date/Time: Saturday, September 23, 2017 17:20 - CONCLUSION: 1. No acute fracture or dislocation. Consider CT or MRI examination if patient is unable to bear weight on the affected side. James Doty MD Pelvis CT 09/23/17 0000 Signed Impressions: Service Date/Time: Saturday, September 23, 2017 20:00 - CONCLUSION: 1. 6.1 x 7.6 cm soft tissue hematoma in the right inferior gluteal region without associated acute bony fracture. James Doty MD Lumbar Spine X-Ray 09/23/17 0000 Signed Impressions: Service Date/Time: Saturday, September 23, 2017 17:20 - CONCLUSION: 1. No acute fracture or subluxation. 2. Multilevel degenerative spondylosis of the lumbar spine most prominently at L4-S1. James Doty MD Lumbar Spine CT 09/23/17 0000 Signed Impressions: Service Date/Time: Saturday, September 23, 2017 19:58 - CONCLUSION: 1. Questionable L2 inferior endplate fracture, as above. Consider MRI examination particularly if the patient has tenderness on palpation of the L2 spinous process. 2. Advanced multilevel degenerative spondylosis of the lumbar spine. James Doty MD Head CT 09/23/17 0000 Signed Impressions: Service Date/Time: Saturday, September 23, 2017 17:29 - CONCLUSION: 1. No acute intracranial normality. James Doty MD Cervical Spine CT 09/23/17 0000 Signed Impressions: Service Date/Time: Saturday, September 23, 2017 17:29 - CONCLUSION: 1. No acute fracture or subluxation. 2. Advanced degenerative spondylosis of the cervical spine. 3. Prominent carotid artery calcifications. 4. Subcentimeter bilateral thyroid nodules. James Doty MD Caprinalicia VTE Risk Assessment Caprini VTE Risk Assessment: Mod/High Risk (score >= 2) Caprini Risk Assessment Model Point Value = 1 Point Value = 2 Point Value = 3 Point Value = 5 Age 41-60 Minor surgery BMI > 25 kg/m2 Swollen legs Varicose veins or History of unexplained or recurrent spontaneous Oral contraceptives or hormone replacement Sepsis (< 1 month) Serious lung disease, including pneumonia (< 1 month) Abnormal pulmonary function Acute myocardial infarction Congestive heart failure (< 1 month) History of inflammatory bowel disease Medical patient at bed rest Age 61-74 Arthroscopic surgery Major open surgery (> 45 min) Laparoscopic surgery (> 45 min) Malignancy Confined to bed (> 72 hours) Immobilizing plaster cast Central venous access Age >= 75 History of VTE Family history of VTE Factor V Leiden Prothrombin [id number] Lupus anticoagulant Anticardiolipin antibodies Elevated serum homocysteine Heparin-induced thrombocytopenia Other congenital or acquired thrombophilia Stroke (< 1 month) Elective arthroplasty Hip, pelvis, or leg fracture Acute spinal cord injury (< 1 month) Prophylaxis Regimen Total Risk Factor Score Risk Level Prophylaxis Regimen 0-1 Low Early ambulation 2 Moderate Order ONE of the following: *Sequential Compression Device (SCD) *Heparin 5000 units SQ BID 3-4 Higher Order ONE of the following medications: *Heparin 5000 units SQ TID *Enoxaparin/Lovenox 40 mg SQ daily (WT < 150 kg, CrCl > 30 mL/min) *Enoxaparin/Lovenox 30 mg SQ daily (WT < 150 kg, CrCl > 10-29 mL/min) *Enoxaparin/Lovenox 30 mg SQ BID (WT < 150 kg, CrCl > 30 mL/min) AND/OR *Sequential Compression Device (SCD) 5 or more Highest Order ONE of the following medications: *Heparin 5000 units SQ TID (Preferred with Epidurals) *Enoxaparin/Lovenox 40 mg SQ daily (WT < 150 kg, CrCl > 30 mL/min) *Enoxaparin/Lovenox 30 mg SQ daily (WT < 150 kg, CrCl > 10-29 mL/min) *Enoxaparin/Lovenox 30 mg SQ BID (WT < 150 kg, CrCl > 30 mL/min) AND *Sequential Compression Device (SCD) Assessment and Plan Problem List: (1) Defect of endplate of vertebra ICD Codes: Q76.49 - Other congenital malformations of spine, not associated with scoliosis Status: Acute Plan: Order MRI, pain meds, PT eval (2) Closed head injury ICD Codes: S09.90XA - Unspecified injury of head, initial encounter Status: Acute Plan: CT with no acute findings. No mental status change or neurologic changes on exam. Fall precaution. (3) Gastroesophageal reflux disease ICD Codes: K21.9 - Gastro-esophageal reflux disease without esophagitis Status: Chronic Plan: PPI (4) Chronic anticoagulation ICD Codes: Z79.01 - halfway (current) use of anticoagulants Status: Chronic Plan: Hematology was consult in late July to render an opinion regarding Xarelto use. Was felt that use of such bad outweighed the risks. We'll hold Xarelto for now given the fall. Likely will be resumed tomorrow. (5) History of DVT (deep vein thrombosis) ICD Codes: Z86.718 - Personal history of other venous thrombosis and embolism Status: Chronic Plan: As above. (6) Hyperlipidemia ICD Codes: E78.5 - Hyperlipidemia, unspecified Status: Chronic Plan: Continue treatment (7) Debility ICD Codes: R53.81 - Other malaise Status: Chronic Plan: Lives with family. May need placement. (8) Atrial fibrillation ICD Codes: I48.91 - Unspecified atrial fibrillation Status: Chronic Plan: Rate controlled. We'll likely resume anticoagulant in near future depending on her ambulation and balance capacity. (9) HTN (hypertension) ICD Codes: I10 - Essential (primary) hypertension Status: Chronic Plan: Continue treatment. Discussed Condition With Patient, her family and ER provider Problem Qualifiers (1) Closed head injury: Qualified Codes: S09.90XA - Unspecified injury of head, initial encounter (2) Atrial fibrillation: Qualified Codes: I48.2 - Chronic atrial fibrillation Anibal Masters MD PhD Sep 23, 2017 21:35
[2017-09-23 21:40] LABS: AUTOMATED NEUTROPHIL # 9.6 TH/MM3 (1.8-7.7); BASOPHIL # 0.1 TH/MM3 (0-0.2); BASOPHIL % 0.8 % (0.0-2.0); EOSINOPHIL # 0.1 TH/MM3 (0-0.4); EOSINOPHIL % 0.7 % (0.0-4.0); HEMATOCRIT 41.8 % (35.0-46.0); HEMOGLOBIN 14.4 GM/DL (11.6-15.3); LYMPH % 11.2 % (9.0-44.0); LYMPHOCYTE # 1.3 TH/MM3 (1.0-4.8); MEAN CELL VOLUME 92.3 FL (80.0-100.0); MEAN CORPUSCULAR HEMOGLOBIN 31.7 PG (27.0-34.0); MEAN CORPUSCULAR HGB CONC 34.4 % (32.0-36.0); MEAN PLATELET VOLUME 8.1 FL (7.0-11.0); MONO % 6.1 % (0.0-8.0); MONOCYTE # 0.7 TH/MM3 (0-0.9); NEUT % 81.2 % (16.0-70.0); PLATELET COUNT 237 TH/MM3 (150-450); RED BLOOD COUNT 4.53 MIL/MM3 (4.00-5.30); WHITE BLOOD COUNT 11.8 TH/MM3 (4.0-11.0)
[2017-09-23 21:56] LABS: BICARBONATE 30.4 MEQ/L (21.0-32.0); CALCIUM 9.9 MG/DL (8.5-10.1); CREATININE 0.76 MG/DL (0.50-1.00)
[2017-09-23 22:08] VITALS: BP 169/77; PULSE 88; O2SAT 100
--- NOTE | 2017-09-23 23:04 | RADRPT ---
EXAM DATE/TIME: 09/23/2017 22:22 [place] COMPARISON: CT ABDOMEN & PELVIS W CONTRAST, May 12, 2016, 20:07. CT LUMBAR SPINE W/O CONTRAST, September 23 017, 19:58. INDICATIONS : Fracture. MEDICAL HISTORY : Hypertension. SURGICAL HISTORY : Total knee replacement, left. Total knee replacement, right. Colostomy. ENCOUNTER: Initial ACUITY: 2 day PAIN SCORE: 7/10 LOCATION: Right lower back region. TECHNIQUE: Multiplanar multisequence MRI of the lumbar spine was performed without contrast. FINDINGS: The marrow signal appears intact. No significant compression deformities, spondylolisis, or spondylo lesthesis is seen. 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 The questioned ar ea of questionable fracture involving L2 vertebrae corresponds to prominent nutrient channels and the re is no fracture at this site. L1-L2: No appreciable compromise to the thecal sac, or the exiting nerve roots is seen. The neural foramina and lateral recesses are patent bilaterally. L2-L3: No appreciable compromise to the thecal sac, or the exiting nerve roots is seen. The neural foramina and lateral recesses are patent bilaterally. L3-L4: No appreciable compromise to the thecal sac, or the exiting nerve roots is seen. The neural foramina and lateral recesses are patent bilaterally. L4-L5: Slight bulging disc is present with minimal extension into bilateral neural foramina. No significant compromise to the thecal sac or the exiting nerve roots are seen. L5-S1: There is a fracture through the mid body of L5 with slight marrow edema surrounding it and the fractu re extends through the superior endplate of L5. No significant compression or depression is identifie d. No appreciable compromise to the thecal sac, or the exiting nerve roots is seen. The neural suzy sabiha and lateral recesses are patent bilaterally. CONCLUSION: Acute fracture of L5 without any significant compression deformity or any significant compromise to t he thecal sac or the exiting nerve roots, otherwise chronic and benign changes. . Bird Hartmann MD on September 23, 2017 at 22:55 Board Certified Radiologist. This report was verified electronically.
[2017-09-24 02:00] VITALS: BP 141/84; PULSE 77; RESP 16; TEMP 98.7; O2SAT 99
[2017-09-24 04:26] VITALS: BP 136/76; PULSE 85; RESP 18; TEMP 98.7; O2SAT 98
[2017-09-24 08:23] VITALS: BP 131/60; PULSE 77; RESP 18; TEMP 98.3; O2SAT 94
[2017-09-24] MEDS: PANTOPRAZOLE SOD 40 MG DELAYED RELEASE TAB PO SCH (08:35)
[2017-09-24] MEDS: DILTIAZEM-CD 240 MG CAP ER PO SCH (08:36)
[2017-09-24] MEDS: POTASSIUM CHLORIDE 10 MEQ CONTROLLED RELEASE TAB PO SCH (08:36)
[2017-09-24] MEDS: levETIRAcetam 500 MG TAB PO SCH ×2 (08:36→22:02)
[2017-09-24] MEDS: FUROSEMIDE 20 MG TAB PO SCH ×2 (08:36→18:01)
[2017-09-24] MEDS: DIGOXIN 0.125 MG TAB PO SCH (08:36)
[2017-09-24] MEDS: DULoxetine HCl DR 30 MG CAP PO SCH (08:36)
[2017-09-24] MEDS: MORPHINE SULFATE 2 MG/ML INJ IV PRN ×2 (08:38→08:51)
--- NOTE | 2017-09-24 10:27 | HHI.PR ---
Subjective Remarks Pt reports continued pain with movement She did bed exercises with PT this morning otherwise not moving much due to pain Objective Vitals Vital Signs Date Time Temp Pulse Resp B/P (MAP) Pulse Ox O2 Delivery O2 Flow Rate FiO2 09/24/17 08:23 98.3 77 18 131/60 (83) 94 09/24/17 04:26 98.7 85 18 136/76 (96) 98 09/24/17 02:00 98.7 77 16 141/84 (103) 99 09/23/17 23:01 09/23/17 22:08 88 169/77 (107) 100 Room Air 09/23/17 20:21 85 15 140/79 (99) 100 Room Air 09/23/17 16:49 97.9 112 22 195/86 (122) 99 Room Air Result Diagram: 09/23/17212409/23/172124 Other Results Laboratory Tests Test 09/23/17 21:25 White Blood Count 11.8 TH/MM3 Red Blood Count 4.53 MIL/MM3 Hemoglobin 14.4 GM/DL Hematocrit 41.8 % Mean Corpuscular Volume 92.3 FL Mean Corpuscular Hemoglobin 31.7 PG Mean Corpuscular Hemoglobin Concent 34.4 % Red Cell Distribution Width 15.0 % Platelet Count 237 TH/MM3 Mean Platelet Volume 8.1 FL Neutrophils (%) (Auto) 81.2 % Lymphocytes (%) (Auto) 11.2 % Monocytes (%) (Auto) 6.1 % Eosinophils (%) (Auto) 0.7 % Basophils (%) (Auto) 0.8 % Neutrophils # (Auto) 9.6 TH/MM3 Lymphocytes # (Auto) 1.3 TH/MM3 Monocytes # (Auto) 0.7 TH/MM3 Eosinophils # (Auto) 0.1 TH/MM3 Basophils # (Auto) 0.1 TH/MM3 CBC Comment DIFF FINAL Differential Comment Blood Urea Nitrogen 15 MG/DL Creatinine 0.76 MG/DL Random Glucose 114 MG/DL Calcium Level 9.9 MG/DL Sodium Level 138 MEQ/L Potassium Level 3.7 MEQ/L Chloride Level 101 MEQ/L Carbon Dioxide Level 30.4 MEQ/L Anion Gap 7 MEQ/L Estimat Glomerular Filtration Rate 74 ML/MIN Imaging Last Impressions Pelvis X-Ray 09/23/17 0000 Signed Impressions: Service Date/Time: Saturday, September 23, 2017 17:20 - CONCLUSION: 1. No acute fracture or dislocation. Consider CT or MRI examination if patient is unable to bear weight on the affected side. James Doty MD Pelvis CT 09/23/17 0000 Signed Impressions: Service Date/Time: Saturday, September 23, 2017 20:00 - CONCLUSION: 1. 6.1 x 7.6 cm soft tissue hematoma in the right inferior gluteal region without associated acute bony fracture. James Doty MD Lumbar Spine X-Ray 09/23/17 0000 Signed Impressions: Service Date/Time: Saturday, September 23, 2017 17:20 - CONCLUSION: 1. No acute fracture or subluxation. 2. Multilevel degenerative spondylosis of the lumbar spine most prominently at L4-S1. James Doty MD Lumbar Spine MRI 09/23/17 0000 Signed Impressions: Service Date/Time: Saturday, September 23, 2017 22:22 - CONCLUSION: Acute fracture of L5 without any significant compression deformity or any significant compromise to the thecal sac or the exiting nerve roots, otherwise chronic and benign changes. . Bird Hartmann MD Lumbar Spine CT 09/23/17 0000 Signed Impressions: Service Date/Time: Saturday, September 23, 2017 19:58 - CONCLUSION: 1. Questionable L2 inferior endplate fracture, as above. Consider MRI examination particularly if the patient has tenderness on palpation of the L2 spinous process. 2. Advanced multilevel degenerative spondylosis of the lumbar spine. James Doty MD ADDENDUM: Upon reexamination of the study, there is a fracture involving the L5 superior endplate extending anteriorly along the right anterior vertebral body towards the inferior endplate. This is better demonstrated on MRI exam. James Doty MD Head CT 09/23/17 0000 Signed Impressions: Service Date/Time: Saturday, September 23, 2017 17:29 - CONCLUSION: 1. No acute intracranial normality. James Doty MD Cervical Spine CT 09/23/17 0000 Signed Impressions: Service Date/Time: Saturday, September 23, 2017 17:29 - CONCLUSION: 1. No acute fracture or subluxation. 2. Advanced degenerative spondylosis of the cervical spine. 3. Prominent carotid artery calcifications. 4. Subcentimeter bilateral thyroid nodules. James Doty MD Objective Remarks General: NAD, AAOx3 Chest: CTA Cardiac: Irregular Abd: +BS, soft ND/NT Ext: Venous stasis dermatitis bilateral lower extremities. 1+ edema distal lower extremities. A/P Problem List: (1) L5 vertebral fracture ICD Codes: S32.059A - Unspecified fracture of fifth lumbar vertebra, initial encounter for closed fracture Status: Acute Plan: - Pt is a 76 y/o female with multiple medical issues and recent health-related complications who presented to the ED with family at bedside for evaluation after a fall that occurred just prior to arrival. Patient was at Dr. Apple's ( her PCP) office. She was in the parking lot about to enter his office when she states she lost her balance and fell hitting the back of her head. No loss of consciousness or any syncopal episodes. L5 Vertebral fracture s/p fall Gluteal hematoma Closed head injury Debility - Head CT ) --> No acute intracranial normality. - Pelvic CT (09/23) --> 6.1 x 7.6 cm soft tissue hematoma in the right inferior gluteal region without associated acute bony fracture. - Lumbar spine MRI (09/23) --> Acute fracture of L5 without any significant compression deformity or any significant compromise to the thecal sac or the exiting nerve roots, otherwise chronic and benign changes. - PT has evaluated the pt and recommended SNF placement at discharge - Pt has Morphine 3mg IV Q3H PRN ordered for pain control - There have been NO mental status change or neurologic changes on exam. - Fall precaution. - Consult Neurosurgery to ensure no need for Kyphoplasty at this time. - LSO brace and change pain meds to oral pain meds with IV for breakthrough - Pt currently lives with her family but may benefit from SNF placement Recent Pulmonary embolism (06/2017) Recent Bilateral LE DVT (06/2017) on chronic anticoagulation - Pt was resumed on Xarelto during her last admission, this was held at admission on 09/23 - Hematology was consulted during admission in late July to render an opinion regarding Xarelto use. - It was felt that use of Xarelto outweighed the risks. GERD - PPI Atrial fibrillation - Cont Digoxin and Cardizem - Currently rate controlled Subdural hematoma (05/29/17) - CT Head (09/23) --> NO acute findings - h/o SDH during prior admission - Continue Keppra for seizure prophylaxis HTN - Cont. Cardizem Depression - Cont. Cymbalta Colostomy present - Pt underwent Sigmoidoscopy (07/24), colon appears healthy, some diversion colitis - Pt follows with CRS (2) Closed head injury ICD Codes: S09.90XA - Unspecified injury of head, initial encounter Status: Acute Plan: - See above (3) Gastroesophageal reflux disease ICD Codes: K21.9 - Gastro-esophageal reflux disease without esophagitis Status: Chronic Plan: - See above (4) Chronic anticoagulation ICD Codes: Z79.01 - correction (current) use of anticoagulants Status: Chronic Plan: - See above (5) History of DVT (deep vein thrombosis) ICD Codes: Z86.718 - Personal history of other venous thrombosis and embolism Status: Chronic Plan: - See above. (6) Hyperlipidemia ICD Codes: E78.5 - Hyperlipidemia, unspecified Status: Chronic (7) Debility ICD Codes: R53.81 - Other malaise Status: Chronic Plan: - See above (8) Atrial fibrillation ICD Codes: I48.91 - Unspecified atrial fibrillation Status: Chronic Plan: - See above (9) HTN (hypertension) ICD Codes: I10 - Essential (primary) hypertension Status: Chronic Plan: - See above. Assessment and Plan Patient examined. Assessment and plan formulated with Lea Ivey PA-C. I agree with the above. L4 fx after fall. no apparent lower ext weakness/radiculopathy. tlso brace, pain meds and PT ordered. I don't think any intervention is needed at this point but nsg was consulted to give opinion and f/u. updated family. pt on anticoagulation. recent sdh/sz/dvt/pe. Problem Qualifiers (1) L5 vertebral fracture: (2) Closed head injury: Qualified Codes: S09.90XA - Unspecified injury of head, initial encounter (3) Atrial fibrillation: Qualified Codes: I48.2 - Chronic atrial fibrillation Lea Ivey Sep 24, 2017 10:27 Armando Garcia MD Sep 24, 2017 14:32
[2017-09-24 12:10] VITALS: BP 122/61; PULSE 88; RESP 18; TEMP 98.4; O2SAT 95
[2017-09-24] MEDS: ACETAMINOPHEN/HYDROcodone 325 MG/5 MG TAB PO PRN ×2 (14:30→22:04)
[2017-09-24 16:02] VITALS: BP 124/60; PULSE 76; RESP 18; TEMP 98.2; O2SAT 94
[2017-09-24 22:31] LABS: BACTERIA, URINE MANY /hpf; BILIRUBIN, URINE NEG (NEG); BLOOD, URINE TRACE (NEG); GLUCOSE,URINE NEG (NEG); HYALINE CAST, URINE 9 /lpf (RARE); KETONE, URINE NEG (NEG); MUCUS URINE MOD /lpf (OCC); NITRITE,URINE POS (NEG); PH, URINE 5.5 (5.0-8.5); SQUAMOUS EPITHELIAL CELL URINE 8 /hpf (0-5); URINE COLOR YELLOW (YELLW/STRAW); URINE LEUKOCYTE ESTERASE LARGE (NEG)
[2017-09-24 23:35] VITALS: BP 118/56; PULSE 59; RESP 18; TEMP 98.8; O2SAT 94
[2017-09-25] MEDS: ACETAMINOPHEN/HYDROcodone 325 MG/5 MG TAB PO PRN ×2 (06:03→15:21)
--- NOTE | 2017-09-25 08:01 | HHI.PR ---
Subjective Remarks Pt slept well last night No new complaints Pain is currently controlled but she has not been out of bed Objective Vitals Vital Signs Date Time Temp Pulse Resp B/P (MAP) Pulse Ox O2 Delivery O2 Flow Rate FiO2 09/24/17 23:35 98.8 59 18 118/56 (76) 94 09/24/17 16:02 98.2 76 18 124/60 (81) 94 09/24/17 12:10 98.4 88 18 122/61 (81) 95 09/24/17 08:23 98.3 77 18 131/60 (83) 94 Result Diagram: 09/23/17212409/23/172124 Other Results Laboratory Tests Test 09/23/17 21:25 09/24/17 22:14 White Blood Count 11.8 TH/MM3 Red Blood Count 4.53 MIL/MM3 Hemoglobin 14.4 GM/DL Hematocrit 41.8 % Mean Corpuscular Volume 92.3 FL Mean Corpuscular Hemoglobin 31.7 PG Mean Corpuscular Hemoglobin Concent 34.4 % Red Cell Distribution Width 15.0 % Platelet Count 237 TH/MM3 Mean Platelet Volume 8.1 FL Neutrophils (%) (Auto) 81.2 % Lymphocytes (%) (Auto) 11.2 % Monocytes (%) (Auto) 6.1 % Eosinophils (%) (Auto) 0.7 % Basophils (%) (Auto) 0.8 % Neutrophils # (Auto) 9.6 TH/MM3 Lymphocytes # (Auto) 1.3 TH/MM3 Monocytes # (Auto) 0.7 TH/MM3 Eosinophils # (Auto) 0.1 TH/MM3 Basophils # (Auto) 0.1 TH/MM3 CBC Comment DIFF FINAL Differential Comment Blood Urea Nitrogen 15 MG/DL Creatinine 0.76 MG/DL Random Glucose 114 MG/DL Calcium Level 9.9 MG/DL Sodium Level 138 MEQ/L Potassium Level 3.7 MEQ/L Chloride Level 101 MEQ/L Carbon Dioxide Level 30.4 MEQ/L Anion Gap 7 MEQ/L Estimat Glomerular Filtration Rate 74 ML/MIN Urine Color YELLOW Urine Turbidity HAZY Urine pH 5.5 Urine Specific [place] 1.013 Urine Protein TRACE mg/dL Urine Glucose (UA) NEG mg/dL Urine Ketones NEG mg/dL Urine Occult Blood TRACE Urine Nitrite POS Urine Bilirubin NEG Urine Urobilinogen LESS THAN 2.0 MG/DL Urine Leukocyte Esterase LARGE Urine RBC 14 /hpf Urine WBC 64 /hpf Urine Squamous Epithelial Cells 8 /hpf Urine Bacteria MANY /hpf Urine Hyaline Casts 9 /lpf Urine Mucus MOD /lpf Microscopic Urinalysis Comment CULTURE INDICATED Imaging Last Impressions Pelvis X-Ray 09/23/17 0000 Signed Impressions: Service Date/Time: Saturday, September 23, 2017 17:20 - CONCLUSION: 1. No acute fracture or dislocation. Consider CT or MRI examination if patient is unable to bear weight on the affected side. James Doty MD Pelvis CT 09/23/17 0000 Signed Impressions: Service Date/Time: Saturday, September 23, 2017 20:00 - CONCLUSION: 1. 6.1 x 7.6 cm soft tissue hematoma in the right inferior gluteal region without associated acute bony fracture. James Doty MD Lumbar Spine X-Ray 09/23/17 0000 Signed Impressions: Service Date/Time: Saturday, September 23, 2017 17:20 - CONCLUSION: 1. No acute fracture or subluxation. 2. Multilevel degenerative spondylosis of the lumbar spine most prominently at L4-S1. James Doty MD Lumbar Spine MRI 09/23/17 0000 Signed Impressions: Service Date/Time: Saturday, September 23, 2017 22:22 - CONCLUSION: Acute fracture of L5 without any significant compression deformity or any significant compromise to the thecal sac or the exiting nerve roots, otherwise chronic and benign changes. . Bird Hartmann MD Lumbar Spine CT 09/23/17 0000 Signed Impressions: Service Date/Time: Saturday, September 23, 2017 19:58 - CONCLUSION: 1. Questionable L2 inferior endplate fracture, as above. Consider MRI examination particularly if the patient has tenderness on palpation of the L2 spinous process. 2. Advanced multilevel degenerative spondylosis of the lumbar spine. James Doty MD ADDENDUM: Upon reexamination of the study, there is a fracture involving the L5 superior endplate extending anteriorly along the right anterior vertebral body towards the inferior endplate. This is better demonstrated on MRI exam. James Doty MD Head CT 09/23/17 0000 Signed Impressions: Service Date/Time: Saturday, September 23, 2017 17:29 - CONCLUSION: 1. No acute intracranial normality. James Doty MD Cervical Spine CT 09/23/17 0000 Signed Impressions: Service Date/Time: Thursday, September 23, 2017 17:29 - CONCLUSION: 1. No acute fracture or subluxation. 2. Advanced degenerative spondylosis of the cervical spine. 3. Prominent carotid artery calcifications. 4. Subcentimeter bilateral thyroid nodules. James Doty MD Objective Remarks General: NAD, AAOx3 Chest: CTA Cardiac: Irregular Abd: +BS, soft ND/NT, colostomy in lower abdomen Ext: Venous stasis dermatitis bilateral lower extremities. 1+ edema distal lower extremities. Moves bilateral LE in bed without significant pain. A/P Problem List: (1) L5 vertebral fracture ICD Codes: S32.059A - Unspecified fracture of fifth lumbar vertebra, initial encounter for closed fracture Status: Acute Plan: - Pt is a 76 y/o female with multiple medical issues and recent health-related complications who presented to the ED with family at bedside for evaluation after a fall that occurred just prior to arrival. Patient was at Dr. Apple's ( her PCP) office. She was in the parking lot about to enter his office when she states she lost her balance and fell hitting the back of her head. No loss of consciousness or any syncopal episodes. L5 Vertebral fracture s/p fall Gluteal hematoma Closed head injury Debility - Head CT ) --> No acute intracranial normality. - Pelvic CT (09/23) --> 6.1 x 7.6 cm soft tissue hematoma in the right inferior gluteal region without associated acute bony fracture. - Lumbar spine MRI (09/23) --> Acute fracture of L5 without any significant compression deformity or any significant compromise to the thecal sac or the exiting nerve roots, otherwise chronic and benign changes. - PT has evaluated the pt and recommended SNF placement at discharge - Pt has Morphine 3mg IV Q3H PRN ordered for pain control - There have been NO mental status change or neurologic changes on exam. - Fall precaution. - Await Neurosurgery consultation to ensure no need for Kyphoplasty at this time. - LSO brace and pain meds changed to oral pain meds with IV for breakthrough on 09/24 and pain currently controlled but pt has not been out of bed - Pt currently lives with her family but may benefit from SNF placement Recent Pulmonary embolism (06/2017) Recent Bilateral LE DVT (06/2017) on chronic anticoagulation - Pt was resumed on Xarelto during her last admission, this was held at admission on 09/23 - Hematology was consulted during admission in late July to render an opinion regarding Xarelto use. - It was felt that use of Xarelto outweighed the risks. - Xarelto currently held until Neurosurgery consultation and determination regarding any benefit for Kyphoplasty or not GERD - PPI Atrial fibrillation - Cont Digoxin and Cardizem - Currently rate controlled Subdural hematoma (05/29/17) - CT Head (09/23) --> NO acute findings - h/o SDH during prior admission - Continue Keppra for seizure prophylaxis HTN - Cont. Cardizem Depression - Cont. Cymbalta Colostomy present - Pt underwent Sigmoidoscopy (07/24), colon appears healthy, some diversion colitis - Pt follows with CRS (2) Closed head injury ICD Codes: S09.90XA - Unspecified injury of head, initial encounter Status: Acute Plan: - See above (3) Gastroesophageal reflux disease ICD Codes: K21.9 - Gastro-esophageal reflux disease without esophagitis Status: Chronic Plan: - See above (4) Chronic anticoagulation ICD Codes: Z79.01 - retirement (current) use of anticoagulants Status: Chronic Plan: - See above (5) History of DVT (deep vein thrombosis) ICD Codes: Z86.718 - Personal history of other venous thrombosis and embolism Status: Chronic Plan: - See above. (6) Hyperlipidemia ICD Codes: E78.5 - Hyperlipidemia, unspecified Status: Chronic (7) Debility ICD Codes: R53.81 - Other malaise Status: Chronic Plan: - See above (8) Atrial fibrillation ICD Codes: I48.91 - Unspecified atrial fibrillation Status: Chronic Plan: - See above (9) HTN (hypertension) ICD Codes: I10 - Essential (primary) hypertension Status: Chronic Plan: - See above. Assessment and Plan Patient examined. Assessment and plan formulated with Lea Ivey PA-C. I agree with the above. L4 fx after fall. no apparent lower ext weakness/radiculopathy. tlso brace, pain meds and PT ordered. I don't think any intervention is needed at this point but nsg was consulted to give opinion and f/u. updated family. pt on anticoagulation. recent sdh/sz/dvt/pe. uti. gnr. f/u cx abx. d/c tomorrow home. Problem Qualifiers (1) L5 vertebral fracture: (2) Closed head injury: Qualified Codes: S09.90XA - Unspecified injury of head, initial encounter (3) Atrial fibrillation: Qualified Codes: I48.2 - Chronic atrial fibrillation Lea Ivey Sep 25, 2017 08:01 Armando Garcia MD Sep 25, 2017 17:33
[2017-09-25 08:09] VITALS: BP 119/57; PULSE 76; RESP 20; TEMP 98.2; O2SAT 96
[2017-09-25] MEDS: DILTIAZEM-CD 240 MG CAP ER PO SCH (09:14)
[2017-09-25] MEDS: DULoxetine HCl DR 30 MG CAP PO SCH (09:14)
[2017-09-25] MEDS: PANTOPRAZOLE SOD 40 MG DELAYED RELEASE TAB PO SCH (09:14)
[2017-09-25] MEDS: levETIRAcetam 500 MG TAB PO SCH ×2 (09:14→20:53)
[2017-09-25] MEDS: POTASSIUM CHLORIDE 10 MEQ CONTROLLED RELEASE TAB PO SCH (09:15)
[2017-09-25] MEDS: DIGOXIN 0.125 MG TAB PO SCH (09:15)
[2017-09-25] MEDS: FUROSEMIDE 20 MG TAB PO SCH ×2 (09:15→18:08)
[2017-09-25] MEDS: cefTRIAXone INJ 1,000 MG in SODIUM CHLORIDE 0.9% INJ 100 ML IV SCH (14:29)
[2017-09-25 15:54] VITALS: BP 166/74; PULSE 63; RESP 20; TEMP 98; O2SAT 96
--- NOTE | 2017-09-25 17:30 | PD.CONS ---
History of Present Illness Service Neurosurgery Consult Requested By Medicine service Reason for Consult Lumbar spine fracture Primary Care Physician Shad Apple M.D. Diagnoses: History of Present Illness 76-year-old female presented to the emergency room on 09/23/2017 following a fall in a parking lot on the same day. There was no loss of consciousness. No syncopal type episode. She had no complaint of chest pain, shortness of breath , dizziness on her initial emergency room evaluation according to EMR. She did complain of occipital scalp pain where she hit the back of her head as well as low back pain. The patient has a history of intracranial hemorrhage in April 2017. She was on Coumadin prior to the hemorrhage and subsequently was placed on Xarelto after initial recovery from the hemorrhage. Since this admission, she has undergone imaging of the brain and spine including an MRI of the lower spine which has revealed an acute superior L5 vertebral body fracture without subluxation. Review of Systems Constitutional: DENIES: Fever Eyes: DENIES: Blurred vision, Diplopia Ears, nose, mouth, throat: DENIES: Vertigo Respiratory: DENIES: Shortness of breath Cardiovascular: DENIES: Chest pain Gastrointestinal: DENIES: Nausea, Vomiting Musculoskeletal: COMPLAINS OF: Joint pain (right hip since fall), Muscle aches (aching right lower extremity since fall), Neck pain (mild neck ache), DENIES: Back pain Hematologic/lymphatic: COMPLAINS OF: Bruising Neurologic: COMPLAINS OF: Abnormal gait, DENIES: Headache Psychiatric: DENIES: Confusion Past Family Social History Allergies: Coded Allergies: codeine (Verified Allergy, Severe, NAUSEA, 09/23/17) chlorhexidine (Verified Allergy, Intermediate, Rash, , 09/23/17) piperacillin (Verified Allergy, Intermediate, Rash, 09/23/17) tazobactam (Verified Allergy, Intermediate, Rash, 09/23/17) Past Medical History Hypertension Atrial fibrillation Lower extremity DVT Dyslipidemia Sleep apnea GERD Depression Past Surgical History Bilateral knee arthroplasty Cholecystectomy Colostomy Cataract surgery Reported Medications Reported Meds & Active Scripts Active Xarelto (Rivaroxaban) 20 Mg Tab 20 Mg PO DAILY Furosemide 20 Mg Tab 20 Mg PO BID@09,18 30 Days Keppra (Levetiracetam) 500 Mg Tab 500 Mg PO Q12HR Cardizem CD 24 HR (Diltiazem CD 24 HR) 240 Mg Caper 240 Mg PO DAILY 30 Days Pantoprazole (Pantoprazole Sodium) 40 Mg Tab 40 Mg PO DAILY Klor-Con 10 (Potassium Chloride) 10 Meq Tab 20 Meq PO DAILY Duoneb (Ipratropium-Albuterol Neb) 0.5-2.5 Mg/3 Ml Neb 1 Ampule NEB Q4HR NEB PRN 30 Days Reported Digoxin 0.125 Mg Tab 0.125 Mg PO DAILY Duloxetine DR (Duloxetine HCl) 30 Mg Capdr 30 Mg PO DAILY Social History Does not smoke cigarettes or drink alcohol Lives with her Physical Exam Vital Signs Vital Signs Date Time Temp Pulse Resp B/P (MAP) Pulse Ox O2 Delivery O2 Flow Rate FiO2 09/25/17 15:54 98.0 63 20 166/74 (104) 96 09/25/17 08:09 98.2 76 20 119/57 (77) 96 09/24/17 23:35 98.8 59 18 118/56 (76) 94 Physical Exam GENERAL: This is a well-nourished, well-developed patient, no apparent distress. SKIN: No abrasions, contusion, rash noted. Skin warm and dry. HEAD abrasion midline occipital region with mild ecchymosis and tenderness. EYES: Sclerae are clear and nonicteric ENT: No facial edema or ecchymosis. No periorbital edema. No CSF otorrhea or rhinorrhea. No palpable facial fracture or deformity. NECK: Trachea midline. Mild cervical spine tenderness. CARDIOVASCULAR: Irregular rhythm without murmurs, gallops, or rubs. RESPIRATORY: Clear to auscultation. Breath sounds equal bilaterally. No wheezes , rales, or rhonchi. GASTROINTESTINAL: Abdomen soft, non-tender, nondistended. No hepato-splenomegaly , or palpable masses. No guarding. MUSCULOSKELETAL: Extremities without cyanosis, or edema. No joint tenderness, or edema noted. No calf tenderness. Dorsalis pedis pulses 2+ bilateral NEUROLOGICAL: Awake and alert Oriented X 3 Speech is clear Conversant and appropriate Follow simple commands well Answers questions appropriately Reasonable judgment and insight Recent and remote memory are intact No evidence of anxiety or depression Pupils are equal and reactive to accommodation. Extra-ocular movements, visual deshpande to confrontation, facial sensorimotor, tongue, palate, sternocleidomastoid testing, hearing to finger rub testing, and bilateral shoulder shrug are all intact. Sensation is intact to light touch in all extremities Strength normal major flexion and extension groups all extremities Jamie's absent bilaterally No ankle clonus Plantar responses absent bilateral Fine motor movements intact upper extremities Laboratory Laboratory Tests Test 09/24/17 22:14 Urine Color YELLOW Urine Turbidity HAZY Urine pH 5.5 Urine Specific [place] 1.013 Urine Protein TRACE Urine Glucose (UA) NEG Urine Ketones NEG Urine Occult Blood TRACE Urine Nitrite POS Urine Bilirubin NEG Urine Urobilinogen LESS THAN 2.0 Urine Leukocyte Esterase LARGE Urine RBC 14 Urine WBC 64 Urine Squamous Epithelial Cells 8 Urine Bacteria MANY Urine Hyaline Casts 9 Urine Mucus MOD Microscopic Urinalysis Comment CULTURE INDICATED Date/Time Source Procedure Growth Status 09/24/17 22:14 Urine Clean Catch Urine Culture - Preliminary Gram Negative Den Resulted Result Diagram: 09/23/17212409/23/172124 Imaging 09/23/17 CT scan of the brain and spine as well as 09/24/2017 MRI of the lumbar spine images all been reviewed by the undersigned. Agree with findings as noted below: Pelvis X-Ray 09/23/17 0000 Signed Impressions: Service Date/Time: Saturday, September 23, 2017 17:20 - CONCLUSION: 1. No acute fracture or dislocation. Consider CT or MRI examination if patient is unable to bear weight on the affected side. James Doty MD Pelvis CT 09/23/17 0000 Signed Impressions: Service Date/Time: Saturday, September 23, 2017 20:00 - CONCLUSION: 1. 6.1 x 7.6 cm soft tissue hematoma in the right inferior gluteal region without associated acute bony fracture. James Doty MD Lumbar Spine X-Ray 09/23/17 0000 Signed Impressions: Service Date/Time: Saturday, September 23, 2017 17:20 - CONCLUSION: 1. No acute fracture or subluxation. 2. Multilevel degenerative spondylosis of the lumbar spine most prominently at L4-S1. James Doty MD Lumbar Spine MRI 09/23/17 0000 Signed Impressions: Service Date/Time: Saturday, September 23, 2017 22:22 - CONCLUSION: Acute fracture of L5 without any significant compression deformity or any significant compromise to the thecal sac or the exiting nerve roots, otherwise chronic and benign changes. . K. Jean Hartmann MD Lumbar Spine CT 09/23/17 0000 Signed Impressions: Service Date/Time: Saturday, September 23, 2017 19:58 - CONCLUSION: 1. Questionable L2 inferior endplate fracture, as above. Consider MRI examination particularly if the patient has tenderness on palpation of the L2 spinous process. 2. Advanced multilevel degenerative spondylosis of the lumbar spine. James Doty MD ADDENDUM: Upon reexamination of the study, there is a fracture involving the L5 superior endplate extending anteriorly along the right anterior vertebral body towards the inferior endplate. This is better demonstrated on MRI exam. James Doty MD Head CT 09/23/17 0000 Signed Impressions: Service Date/Time: Saturday, September 23, 2017 17:29 - CONCLUSION: 1. No acute intracranial normality. James Doty MD Cervical Spine CT 09/23/17 0000 Signed Impressions: Service Date/Time: Saturday, September 23, 2017 17:29 - CONCLUSION: 1. No acute fracture or subluxation. 2. Advanced degenerative spondylosis of the cervical spine. 3. Prominent carotid artery calcifications. 4. Subcentimeter bilateral thyroid nodules. James Doty MD Assessment and Plan Assessment and Plan Impression: 1. Acute superior L5 fracture without significant compression or retropulsion. No significant kyphotic deformity. No involvement of the posterior elements. 2. Status post previous intracranial hemorrhage with no significant acute changes on recent CT head Recommendations: Patient may continue to ambulate with an LSO brace. She should avoid reaching and bending. Follow-up lumbar spine x-ray in approximately 10-14 days is recommended with additional imaging at approximately 6 and 12 weeks following her initial fracture to ensure stability of the fracture healing site. Guilherme Peterson MD Sep 25, 2017 17:29
[2017-09-25 19:37] VITALS: BP 118/57; PULSE 67; RESP 17; TEMP 98.3; O2SAT 95
[2017-09-25 23:26] VITALS: BP 127/59; PULSE 81; RESP 16; TEMP 98.5; O2SAT 95
[2017-09-26 04:07] VITALS: BP 111/59; PULSE 73; RESP 18; TEMP 98; O2SAT 96
[2017-09-26] MEDS: ACETAMINOPHEN/HYDROcodone 325 MG/5 MG TAB PO PRN ×2 (08:01→16:19)
--- NOTE | 2017-09-26 08:30 | HHI.PR ---
Subjective Remarks Pt was in significant pain this morning but per nursing staff she refused pain medications all night long Pt has not taken any pain meds since yesterday afternoon. PT to see the pt today and get her up with the LSO brace Objective Vitals Vital Signs Date Time Temp Pulse Resp B/P (MAP) Pulse Ox O2 Delivery O2 Flow Rate FiO2 09/26/17 04:07 98.0 73 18 111/59 (76) 96 09/25/17 23:26 98.5 81 16 127/59 (81) 95 09/25/17 19:37 98.3 67 17 118/57 (77) 95 09/25/17 15:54 98.0 63 20 166/74 (104) 96 09/26/17 09/26/17 09/27/17 15:00 23:00 07:00 Intake Total 240 ml Balance 240 ml Intake Oral 240 ml # Voids 2 Result Diagram: 09/23/17212409/23/172124 Other Results Laboratory Tests Test 09/24/17 22:14 Urine Color YELLOW Urine Turbidity HAZY Urine pH 5.5 Urine Specific [place] 1.013 Urine Protein TRACE mg/dL Urine Glucose (UA) NEG mg/dL Urine Ketones NEG mg/dL Urine Occult Blood TRACE Urine Nitrite POS Urine Bilirubin NEG Urine Urobilinogen LESS THAN 2.0 MG/DL Urine Leukocyte Esterase LARGE Urine RBC 14 /hpf Urine WBC 64 /hpf Urine Squamous Epithelial Cells 8 /hpf Urine Bacteria MANY /hpf Urine Hyaline Casts 9 /lpf Urine Mucus MOD /lpf Microscopic Urinalysis Comment CULTURE INDICATED Imaging Last Impressions Pelvis X-Ray 09/23/17 0000 Signed Impressions: Service Date/Time: Saturday, September 23, 2017 17:20 - CONCLUSION: 1. No acute fracture or dislocation. Consider CT or MRI examination if patient is unable to bear weight on the affected side. James Doty MD Pelvis CT 09/23/17 0000 Signed Impressions: Service Date/Time: Saturday, September 23, 2017 20:00 - CONCLUSION: 1. 6.1 x 7.6 cm soft tissue hematoma in the right inferior gluteal region without associated acute bony fracture. James Doty MD Lumbar Spine X-Ray 09/23/17 0000 Signed Impressions: Service Date/Time: Saturday, September 23, 2017 17:20 - CONCLUSION: 1. No acute fracture or subluxation. 2. Multilevel degenerative spondylosis of the lumbar spine most prominently at L4-S1. James Doty MD Lumbar Spine MRI 09/23/17 0000 Signed Impressions: Service Date/Time: Saturday, September 23, 2017 22:22 - CONCLUSION: Acute fracture of L5 without any significant compression deformity or any significant compromise to the thecal sac or the exiting nerve roots, otherwise chronic and benign changes. . Bird Hartmann MD Lumbar Spine CT 09/23/17 0000 Signed Impressions: Service Date/Time: Saturday, September 23, 2017 19:58 - CONCLUSION: 1. Questionable L2 inferior endplate fracture, as above. Consider MRI examination particularly if the patient has tenderness on palpation of the L2 spinous process. 2. Advanced multilevel degenerative spondylosis of the lumbar spine. James Doty MD ADDENDUM: Upon reexamination of the study, there is a fracture involving the L5 superior endplate extending anteriorly along the right anterior vertebral body towards the inferior endplate. This is better demonstrated on MRI exam. James Doty MD Head CT 09/23/17 0000 Signed Impressions: Service Date/Time: Saturday, September 23, 2017 17:29 - CONCLUSION: 1. No acute intracranial normality. James Doty MD Cervical Spine CT 09/23/17 0000 Signed Impressions: Service Date/Time: Saturday, September 23, 2017 17:29 - CONCLUSION: 1. No acute fracture or subluxation. 2. Advanced degenerative spondylosis of the cervical spine. 3. Prominent carotid artery calcifications. 4. Subcentimeter bilateral thyroid nodules. James Doty MD Objective Remarks General: NAD, AAOx3 Chest: CTA Cardiac: Irregular Abd: +BS, soft ND/NT, colostomy in lower abdomen Ext: Venous stasis dermatitis bilateral lower extremities. 1+ edema distal lower extremities. Moves bilateral LE in bed without significant pain. A/P Problem List: (1) L5 vertebral fracture ICD Codes: S32.059A - Unspecified fracture of fifth lumbar vertebra, initial encounter for closed fracture Status: Acute Plan: - Pt is a 76 y/o female with multiple medical issues and recent health-related complications who presented to the ED with family at bedside for evaluation after a fall that occurred just prior to arrival. Patient was at Dr. Apple's ( her PCP) office. She was in the parking lot about to enter his office when she states she lost her balance and fell hitting the back of her head. No loss of consciousness or any syncopal episodes. L5 Vertebral fracture s/p fall Gluteal hematoma Closed head injury Debility - Head CT ) --> No acute intracranial normality. - Pelvic CT (09/23) --> 6.1 x 7.6 cm soft tissue hematoma in the right inferior gluteal region without associated acute bony fracture. - Lumbar spine MRI (09/23) --> Acute fracture of L5 without any significant compression deformity or any significant compromise to the thecal sac or the exiting nerve roots, otherwise chronic and benign changes. - PT has evaluated the pt and recommended SNF placement at discharge - Pt has Morphine 3mg IV Q3H PRN ordered for pain control - There have been NO mental status change or neurologic changes on exam. - Fall precaution. - Appreciate Neurosurgery consultation. - No surgical intervention recommended at this time. - LSO brace when OOB - Pt recommended to avoid reaching and bending. - NS recommending a follow-up lumbar spine x-ray in approximately 10-14 days with additional imaging at approximately 6 and 12 weeks following her initial fracture to ensure stability of the fracture healing site. - PT to re-evaluate today with pt in LSO brace and OOB - Pt currently in a lot of pain but had refused pain medication overnight. Discussed extensively with the pt that she is going to need pain medication for pain control while she recovers - Pt currently lives with her family but may benefit from SNF placement Recent Pulmonary embolism (06/2017) Recent Bilateral LE DVT (06/2017) on chronic anticoagulation - Pt was resumed on Xarelto during her last admission, this was held at admission on 09/23 - Hematology was consulted during admission in late July to render an opinion regarding Xarelto use. - It was felt that use of Xarelto outweighed the risks. - Xarelto currently held until Neurosurgery consultation and determination regarding any benefit for Kyphoplasty or not GERD - PPI Atrial fibrillation - Cont Digoxin and Cardizem - Currently rate controlled Subdural hematoma (05/29/17) - CT Head (09/23) --> NO acute findings - h/o SDH during prior admission - Continue Keppra for seizure prophylaxis HTN - Cont. Cardizem Depression - Cont. Cymbalta Colostomy present - Pt underwent Sigmoidoscopy (07/24), colon appears healthy, some diversion colitis - Pt follows with [facility] Anticipate discharge once pain is controlled and pt able to get OOB in LSO brace. She may require SNF placement but family hesitant due to financial constraints. Await PT evaluation and recommendations. 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 (6) Hyperlipidemia ICD Codes: E78.5 - Hyperlipidemia, unspecified Status: Chronic (7) Debility ICD Codes: R53.81 - Other malaise Status: Chronic Plan: - See above (8) Atrial fibrillation ICD Codes: I48.91 - Unspecified atrial fibrillation Status: Chronic Plan: - See above (9) HTN (hypertension) ICD Codes: I10 - Essential (primary) hypertension Status: Chronic Plan: - See above. Assessment and Plan Patient examined. Assessment and plan formulated with Lea Ivey PA-C. I agree with the above. L4 fx after fall. no apparent lower ext weakness/radiculopathy. tlso brace, pain meds and PT ordered. I don't think any intervention is needed at this point but nsg was consulted to give opinion and f/u. updated family. pt on anticoagulation. recent sdh/sz/dvt/pe. uti. gnr. f/u cx abx. d/c tomorrow home. Problem Qualifiers (1) L5 vertebral fracture: (2) Closed head injury: Qualified Codes: S09.90XA - Unspecified injury of head, initial encounter (3) Atrial fibrillation: Qualified Codes: I48.2 - Chronic atrial fibrillation Lea Ivey Sep 26, 2017 08:30
[2017-09-26 08:38] VITALS: BP 116/60; PULSE 72; TEMP 98.2; O2SAT 96
[2017-09-26] MEDS: FUROSEMIDE 20 MG TAB PO SCH (09:33)
[2017-09-26] MEDS: DIGOXIN 0.125 MG TAB PO SCH (09:33)
[2017-09-26] MEDS: DULoxetine HCl DR 30 MG CAP PO SCH (09:34)
[2017-09-26] MEDS: levETIRAcetam 500 MG TAB PO SCH (09:34)
[2017-09-26] MEDS: PANTOPRAZOLE SOD 40 MG DELAYED RELEASE TAB PO SCH (09:34)
[2017-09-26] MEDS: POTASSIUM CHLORIDE 10 MEQ CONTROLLED RELEASE TAB PO SCH (09:34)
[2017-09-26] MEDS: DILTIAZEM-CD 240 MG CAP ER PO SCH (09:34)
[2017-09-26 12:12] VITALS: BP 108/60; PULSE 80; RESP 20; TEMP 98.2; O2SAT 96
--- NOTE | 2017-09-26 13:15 | HHI.FF ---
Face to Face Verification Diagnosis: (1) L5 vertebral fracture (2) History of DVT (deep vein thrombosis) (3) Chronic anticoagulation (4) HTN (hypertension) (5) Debility (6) Hyperlipidemia (7) Gastroesophageal reflux disease (8) Atrial fibrillation (9) Impaired mobility and activities of daily living Physical Therapy Order: Evaluate and Treat, Improve ambulation, Strength and gait training Home Health Nursing Order: Medical education Medication education-adverse effect Nursing assessment with vital signs I have seen patient Kimi Padilla on 09/26/17. My clinical findings support the need for the requested home health care services because: Ltd mobility - disease progression Deconditioned w/ increased weakness High risk of falls I certify that my clinical findings support that this patient is homebound because: Unsteady gait/balance Lea Ivey Sep 26, 2017 13:15
[2017-09-26] MEDS ORDERED: CEFU1TAB18 PO (13:46)
[2017-09-26] MEDS ORDERED: HYDR-3516 PO (13:51)
--- NOTE | 2017-09-26 13:52 | HHI.DS ---
Discharge Summary Admission Date Sep 23, 2017 at 21:21 Discharge Date: Sep 26, 2017 Admitting Diagnosis L2 endplate fracture; closed head injury (1) L5 vertebral fracture Diagnosis: Principal ICD Codes: S32.059A - Unspecified fracture of fifth lumbar vertebra, initial encounter for closed fracture Status: Acute (2) Closed head injury Diagnosis: Secondary ICD Codes: S09.90XA - Unspecified injury of head, initial encounter Status: Acute (3) Gastroesophageal reflux disease Diagnosis: Secondary ICD Codes: K21.9 - Gastro-esophageal reflux disease without esophagitis Status: Chronic (4) Chronic anticoagulation Diagnosis: Secondary ICD Codes: 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 Guilherme Peterson - Neurosurgery Brief History 76-year-old female multiple medical issues and recent health-related complications presents to the emergency department with family at bedside for evaluation after a fall that occurred just prior to arrival. Patient was at Dr. Apple's (her PCP) office. She was in the parking lot about to enter his office when she states she lost her balance and fell hitting the back of her head. Patient denies any loss of consciousness. She denies any syncopal episodes. She denies any dizziness, chest pain, shortness of breath. She complains of some mild pain to the occipital scalp but primarily lower back pain. No loss of bowel or bladder function. She currently rates the pain 5/ 10. She states she did not walk after the fall, only to transfer to the stretcher here in the hospital. She does have history of intracranial hemorrhage in April of this year. She was on Coumadin at that time. Now she is on Xarelto and pulmonary emboli. She was evaluated by hematology during hospitalization in late July and at that time Xarelto was reinitiated as the benefit was thought to outweigh risk. Patient is generally guarded quite well by her son when ambulating but today he says in the parking lot and he turned away for "only a moment". Patient denies any other injury or complaints at this time. CT evaluation reveals no acute findings cervical spine or brain however she question of an L2 endplate fracture in MRI is suggested. She is unable to ambulate presently due to the pain. CBC/BMP: 09/23/17212409/23/172124 Significant Findings Laboratory Tests Test 09/23/17 21:25 09/24/17 22:14 White Blood Count 11.8 TH/MM3 (4.0-11.0) Neutrophils (%) (Auto) 81.2 % (16.0-70.0) Neutrophils # (Auto) 9.6 TH/MM3 (1.8-7.7) Random Glucose 114 MG/DL (74-106) Estimat Glomerular Filtration Rate 74 ML/MIN (>89) Urine Turbidity HAZY (CLEAR) Urine Occult Blood TRACE (NEG) Urine Nitrite POS (NEG) Urine Leukocyte Esterase LARGE (NEG) Urine RBC 14 /hpf (0-3) Urine WBC 64 /hpf (0-5) Urine Bacteria MANY /hpf (NONE) Urine Mucus MOD /lpf (OCC) Imaging Last Impressions Pelvis X-Ray 09/23/17 0000 Signed Impressions: Service Date/Time: Saturday, September 23, 2017 17:20 - CONCLUSION: 1. No acute fracture or dislocation. Consider CT or MRI examination if patient is unable to bear weight on the affected side. James Doty MD Pelvis CT 09/23/17 0000 Signed Impressions: Service Date/Time: Saturday, September 23, 2017 20:00 - CONCLUSION: 1. 6.1 x 7.6 cm soft tissue hematoma in the right inferior gluteal region without associated acute bony fracture. James Doty MD Lumbar Spine X-Ray 09/23/17 0000 Signed Impressions: Service Date/Time: Saturday, September 23, 2017 17:20 - CONCLUSION: 1. No acute fracture or subluxation. 2. Multilevel degenerative spondylosis of the lumbar spine most prominently at L4-S1. James Doty MD Lumbar Spine MRI 09/23/17 0000 Signed Impressions: Service Date/Time: Saturday, September 23, 2017 22:22 - CONCLUSION: Acute fracture of L5 without any significant compression deformity or any significant compromise to the thecal sac or the exiting nerve roots, otherwise chronic and benign changes. . Bird Hartmann MD Lumbar Spine CT 09/23/17 0000 Signed Impressions: Service Date/Time: Saturday, September 23, 2017 19:58 - CONCLUSION: 1. Questionable L2 inferior endplate fracture, as above. Consider MRI examination particularly if the patient has tenderness on palpation of the L2 spinous process. 2. Advanced multilevel degenerative spondylosis of the lumbar spine. James Doty MD ADDENDUM: Upon reexamination of the study, there is a fracture involving the L5 superior endplate extending anteriorly along the right anterior vertebral body towards the inferior endplate. This is better demonstrated on MRI exam. James Doty MD Head CT 09/23/17 0000 Signed Impressions: Service Date/Time: Saturday, September 23, 2017 17:29 - CONCLUSION: 1. No acute intracranial normality. James Doty MD Cervical Spine CT 09/23/17 0000 Signed Impressions: Service Date/Time: Saturday, September 23, 2017 17:29 - CONCLUSION: 1. No acute fracture or subluxation. 2. Advanced degenerative spondylosis of the cervical spine. 3. Prominent carotid artery calcifications. 4. Subcentimeter bilateral thyroid nodules. James Doty MD PE at Discharge General: NAD, AAOx3 Chest: CTA Cardiac: Irregular Abd: +BS, soft ND/NT, colostomy in lower abdomen Ext: Venous stasis dermatitis bilateral lower extremities. 1+ edema distal lower extremities. Moves bilateral LE in bed without significant pain. Hospital Course L5 Vertebral fracture s/p fall Gluteal hematoma Closed head injury Debility Pt is a 76 y/o female with multiple medical issues and recent health-related complications who presented to the ED with family at bedside for evaluation after a fall that occurred just prior to arrival. Patient was at Dr. Apple's ( her PCP) office. She was in the parking lot about to enter his office when she states she lost her balance and fell hitting the back of her head. No loss of consciousness or any syncopal episodes. Head CT (12/27) --> No acute intracranial normality. Pelvic CT (09/23) --> 6.1 x 7.6 cm soft tissue hematoma in the right inferior gluteal region without associated acute bony fracture. Lumbar spine MRI (09/23) --> Acute fracture of L5 without any significant compression deformity or any significant compromise to the thecal sac or the exiting nerve roots, otherwise chronic and benign changes. PT has evaluated the pt and recommended SNF placement at discharge but the pt is out of SNF days and the family cannot afford the $160/day Co-pay for SNF. Pts pain has been well controlled with oral [place]. There have been NO mental status change or neurologic changes on exam. Neurosurgery was consulted during admission. No surgical intervention recommended at this time. Pt recommended for LSO brace when OOB. Pt recommended to avoid reaching and bending. Neurosurgery recommending a follow-up lumbar spine x-ray in approximately 10-14 days with additional imaging at approximately 6 and 12 weeks following her initial fracture to ensure stability of the fracture healing site. Pt planned for discharge to home with HHC/PT. She has been staying with her son during the recovery process and will go back home with him She will need to followup with Dr. Apple in 1 week She will need to followup with Dr. Peterson in 2 weeks Lumbar Xray ordered for 10 days Recent Pulmonary embolism (06/2017) Recent Bilateral LE DVT (06/2017) on chronic anticoagulation Pt was resumed on Xarelto during her last admission, this was held at admission on 09/23 until Neurosurgery consultation and determination regarding any benefit for Kyphoplasty or not. Xarelto resumed on 09/26 and will continue on this as an outpt. UTI Pt was noted to have a UTI during admission and was treated as an inpt with Rocephin. She had a previous UTI in June 2017 with noted two isolates of E. coli and review of the case with Microbiology labs prior to discharge they felt that the pt had similar findings with this culture as well but the culture was not finalized prior to discharge. Pt was prescribed Cefuroxime 250mg po BID x 10 days. Pt Condition on Discharge: Stable Discharge Disposition: Disch w/ Home Health Serv Discharge Instructions DIET: Follow Instructions for: Heart Healthy Diet Activities you can perform: Regular-No Restrictions, See Additionl Instruction Other Activity Instructions: Pt must have LSO brace on when out of bed Follow up Referrals: Neurosurgery - 2 Weeks with Guilherme Peterson MD PCP Follow-up - [address] Shad Apple New Medications: Cefuroxime (Ceftin) 250 Mg Tab 250 MG PO BID for UTI for 10 Days, #20 TAB Hydrocodone/Acetaminophen (Hydrocodone-Acetamin 5-325 mg) 5 Mg-325 Mg Tablet 1 TAB PO Q4H PRN for pain, #30 TAB Continued Medications: Digoxin (Digoxin) 0.125 Mg Tab 0.125 MG PO DAILY for Regulate Heart Beat, #30 TAB 0 Refills Diltiazem CD 24 HR (Cardizem CD 24 HR) 240 Mg Caper 240 MG PO DAILY for afib for 30 Days, #[address] (Duloxetine DR) 30 Mg Capdr 30 MG PO DAILY, #30 CAP 0 Refills Furosemide (Furosemide) 20 Mg Tab 20 MG PO BID@09,18 for swelling for 30 Days, TAB Ipratropium-Albuterol Neb (Duoneb) 0.5-2.5 Mg/3 Ml Neb 1 AMPULE NEB Q4HR NEB PRN for SHORTNESS OF BREATH for 30 Days, ML Levetiracetam (Keppra) 500 Mg Tab 500 MG PO Q12HR for Seizure Control, #60 TAB Pantoprazole (Pantoprazole) 40 Mg Tab 40 MG PO DAILY, #30 TAB Potassium Chloride ER (Klor-Con 10) 10 Meq Tab 20 MEQ PO DAILY, #30 TAB Rivaroxaban (Xarelto) 20 Mg Tab 20 MG PO DAILY for Blood Clot Prevention, #30 TAB 0 Refills Lea Ivey Sep 26, 2017 13:52
[2017-09-26] MEDS ORDERED: RIVAROXABAN 20 MG TAB PO SCH (14:00)
[2017-09-26] MEDS: cefTRIAXone INJ 1,000 MG in SODIUM CHLORIDE 0.9% INJ 100 ML IV SCH (14:54)
== END 2017-09-26 17:24 | disposition home or self-care (01) ==
LOC: NEPE 16:45 → NEDA 21:21 → NEPGCP 23:03
PROVIDERS: ADMIT Hospitalist; ATTEND Hospitalist
DX: S09.90XA Unspecified injury of head, initial encounter (principal); Q89.9 Congenital malformation, unspecified; K21.9 Gastro-esophageal reflux disease without esophagitis; Z79.01 Long term (current) use of anticoagulants; Z86.718 Personal history of other venous thrombosis and embolism; E78.5 Hyperlipidemia, unspecified; R53.81 Other malaise; I48.2 Chronic atrial fibrillation; Z79.899 Other long term (current) drug therapy; W01.0XXA Fall on same level from slipping, tripping and stumbling without subsequent striking against object, initial encounter; Y92.481 Parking lot as the place of occurrence of the external cause; M54.5 Low back pain; S32.059A Unspecified fracture of fifth lumbar vertebra, initial encounter for closed fracture; M47.816 Spondylosis without myelopathy or radiculopathy, lumbar region; E04.2 Nontoxic multinodular goiter; S30.0XXA Contusion of lower back and pelvis, initial encounter; N39.0 Urinary tract infection, site not specified; B96.20 Unspecified Escherichia coli [E. coli] as the cause of diseases classified elsewhere; G47.33 Obstructive sleep apnea (adult) (pediatric); K44.9 Diaphragmatic hernia without obstruction or gangrene; D73.5 Infarction of spleen; K58.9 Irritable bowel syndrome, unspecified; I50.9 Heart failure, unspecified; I11.0 Hypertensive heart disease with heart failure; Z86.73 Personal history of transient ischemic attack (TIA), and cerebral infarction without residual deficits; Z86.711 Personal history of pulmonary embolism
CPT/HCPCS: 70450; 72100; 72125; 72131; 72148; 72170; 72192; 80048; 81001; 85025; 87077; 87086; 87186; 96365; 96372; 96375; 97162; 97530; 99285; G0378; G8987; G8988; J0696; J2270; J2405; L0484

== ENCOUNTER 2017-09-28 10:07 | Observation (INO) | payer MEDICARE ==
[~2017-09-28 10:07] MED LIST changes: +CEFU1TAB18 PO; +HYDR-3516 PO
[2017-09-28 12:00] VITALS: BP 110/66; PULSE 92; RESP 21; TEMP 95.5; O2SAT 99
[2017-09-28] MEDS ORDERED: ASP: Documented ESBL, MDR A baumannii or P. aeruginosa PRN (12:45)
[2017-09-28] MEDS ORDERED: MISCELLANEOUS PHARMACY INFORMATION XX PRN ×2 (12:45)
[2017-09-28] MEDS ORDERED: ONDANSETRON HCL 4 MG/2 ML VIAL IVP PRN (13:00)
[2017-09-28] MEDS ORDERED: MAGNESIUM HYDROXIDE SUSP 30 ML CUP PO PRN (13:00)
[2017-09-28] MEDS ORDERED: RESP: ALBUTEROL 2.5 MG/IPRATROPIUM 0.5 MG NEB (PRN) NEB (13:00)
[2017-09-28] MEDS ORDERED: ACETAMINOPHEN/HYDROcodone 325 MG/5 MG TAB PO PRN (13:00)
[2017-09-28] MEDS ORDERED: ACETAMINOPHEN 325 MG TAB PO PRN (13:00)
[2017-09-28] MEDS ORDERED: NALOXONE HCL 0.4 MG/ML AMP IV PUSH PRN (13:00)
[2017-09-28] MEDS ORDERED: ERTAPENEM INJ 1,000 MG in SODIUM CHLORIDE 0.9% INJ 100 ML IV SCH (13:00)
[2017-09-28] MEDS ORDERED: SODIUM CHLORIDE 0.9% FLUSH 10 ML FLUSH IV FLUSH PRN (13:00)
--- NOTE | 2017-09-28 13:13 | HHI.HP ---
HPI Service [facility] Hospitalists Primary Care Physician Shad Apple M.D. Admission Diagnosis ESBL E. coli UTI Chief Complaint: Dysuria Travel History International Travel<30 Days: No Contact w/Intl Traveler <30 Da: No Traveled to Known Affected Are: No History of Present Illness Mrs. Padilla is a pleasant 76 y/o WF with multiple medical issues and recent health-related complications, including PE/DVT, A. fib on chronic anticoagulation, recent SDH and who was most recently hospitalized from to 09/26/17 after a fall in the parking lot at her PCP's office when she lost her balance. She was found to have an acute fracture of L5 without any significant compression deformity or any significant compromise to the thecal sac or the exiting nerve roots, otherwise chronic and benign changes. Neurosurgery was consulted during admission and no surgical intervention recommended at this time. Pt was noted to have a UTI during admission and was treated as an inpt with Rocephin. She had a previous UTI in June 2017 with noted two isolates of E. coli. The case was reviewed with [facility] prior to discharge they felt that the pt had similar findings with this culture as well but the culture was not finalized prior to discharge. Pt was prescribed Cefuroxime 250mg po BID x 10 days at discharge on 09/26/17. The cultures were followed and it ultimately grew out ESBL E. coli UTI. Pt was called to re-admit to the hospital for mid line IV placement, ID consultation, and to start IV antibiotics. Pt has been fever free since discharge Review of Systems Constitutional: DENIES: Fever, Chills Ears, nose, mouth, throat: DENIES: Hearing loss Respiratory: DENIES: Cough, Shortness of breath Cardiovascular: DENIES: Chest pain, Palpitations, Dyspnea on Exertion Gastrointestinal: DENIES: Abdominal pain, Constipation, Diarrhea, Nausea, Vomiting Genitourinary: DENIES: Urgency, Hematuria Musculoskeletal: COMPLAINS OF: Back pain Integumentary: DENIES: Rash Neurologic: DENIES: Headache Psychiatric: DENIES: Confusion Past Family Social History Past Medical History L5 vertebral fracture (08/2017) DVT and PE 07/21/17, persistent DVT noted in late July. Recent right tentorium subdural hematoma/subcortical hemorrhage involving the right parietal field 05/29/17 Recent treatment for left lower lobe pneumonia Gastroesophageal reflux disease Hypertension Dyslipidemia Chronic atrial fibrillation CHADVASC 5. Pt was off anticoagulation d/t recent admission with SDH, but was started back on Xarelto in late July. Obstructive sleep apnea Hiatal hernia IBS History of splenic infarction History of DVT bilateral lower extremity status post embolectomy Depression Past Surgical History Lap-assisted loop colostomy with revision by Dr. Wetzel History of lower extremity embolectomy by Dr. Mo Cholecystectomy Bilateral total knee replacements with revision of left knee Cataracts Reported Medications Hydrocodone-Acetamin 5-325 mg (Hydrocodone/Acetaminophen) 5 Mg-325 Mg Tablet 1 Tab PO Q4H PRN Ceftin (Cefuroxime Axetil) 250 Mg Tab 250 Mg PO BID 10 Days Xarelto (Rivaroxaban) 20 Mg Tab 20 Mg PO DAILY Furosemide 20 Mg Tab 20 Mg PO BID@,18 30 Days Keppra (Levetiracetam) 500 Mg Tab 500 Mg PO Q12HR Cardizem CD 24 HR (Diltiazem CD 24 HR) 240 Mg Caper 240 Mg PO DAILY 30 Days Pantoprazole (Pantoprazole Sodium) 40 Mg Tab 40 Mg PO DAILY Klor-Con 10 (Potassium Chloride) 10 Meq Tab 20 Meq PO DAILY Duoneb (Ipratropium-Albuterol Neb) 0.5-2.5 Mg/3 Ml Neb 1 Ampule NEB Q4HR NEB PRN 30 Days Digoxin 0.125 Mg Tab 0.125 Mg PO DAILY Duloxetine DR (Duloxetine HCl) 30 Mg Capdr 30 Mg PO DAILY Allergies: Coded Allergies: codeine (Verified Allergy, Severe, NAUSEA, 09/23/17) chlorhexidine (Verified Allergy, Intermediate, Rash, , 09/23/17) piperacillin (Verified Allergy, Intermediate, Rash, 09/23/17) tazobactam (Verified Allergy, Intermediate, Rash, 09/23/17) Family History Noncontributory Social History Denies any alcohol, tobacco or illicit drug use She is a local [place] "grew up in this area" 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 HEENT: Atraumatic. Normocephalic. No temporal or scalp tenderness. No scleral icterus. Airway patent. NECK: Trachea midline, supple, nontender. CARDIO: Irregular. RESP: CTA bilaterally. No wheezes, rales, or rhonchi. ABD: +BS, soft, non-tender, nondistended. Colostomy in mid abdomen EXT: Extremities without clubbing, cyanosis, or edema. NEURO: Awake and alert. Motor and sensory grossly within normal limits. Normal speech. Caprini VTE Risk Assessment Caprini VTE Risk Assessment: Mod/High Risk (score >= 2) Caprini Risk Assessment Model Point Value = 1 Point Value = 2 Point Value = 3 Point Value = 5 Age 41-60 Minor surgery BMI > 25 kg/m2 Swollen legs Varicose veins or History of unexplained or recurrent spontaneous Oral contraceptives or hormone replacement Sepsis (< 1 month) Serious lung disease, including pneumonia (< 1 month) Abnormal pulmonary function Acute myocardial infarction Congestive heart failure (< 1 month) History of inflammatory bowel disease Medical patient at bed rest Age 61-74 Arthroscopic surgery Major open surgery (> 45 min) Laparoscopic surgery (> 45 min) Malignancy Confined to bed (> 72 hours) Immobilizing plaster cast Central venous access Age >= 75 History of VTE Family history of VTE Factor V Leiden Prothrombin [id number] Lupus anticoagulant Anticardiolipin antibodies Elevated serum homocysteine Heparin-induced thrombocytopenia Other congenital or acquired thrombophilia Stroke (< 1 month) Elective arthroplasty Hip, pelvis, or leg fracture Acute spinal cord injury (< 1 month) Prophylaxis Regimen Total Risk Factor Score Risk Level Prophylaxis Regimen 0-1 Low Early ambulation 2 Moderate Order ONE of the following: *Sequential Compression Device (SCD) *Heparin 5000 units SQ BID 3-4 Higher Order ONE of the following medications: *Heparin 5000 units SQ TID *Enoxaparin/Lovenox 40 mg SQ daily (WT < 150 kg, CrCl > 30 mL/min) *Enoxaparin/Lovenox 30 mg SQ daily (WT < 150 kg, CrCl > 10-29 mL/min) *Enoxaparin/Lovenox 30 mg SQ BID (WT < 150 kg, CrCl > 30 mL/min) AND/OR *Sequential Compression Device (SCD) 5 or more Highest Order ONE of the following medications: *Heparin 5000 units SQ TID (Preferred with Epidurals) *Enoxaparin/Lovenox 40 mg SQ daily (WT < 150 kg, CrCl > 30 mL/min) *Enoxaparin/Lovenox 30 mg SQ daily (WT < 150 kg, CrCl > 10-29 mL/min) *Enoxaparin/Lovenox 30 mg SQ BID (WT < 150 kg, CrCl > 30 mL/min) AND *Sequential Compression Device (SCD) Assessment and Plan Problem List: (1) Infection due to ESBL-producing Escherichia coli ICD Codes: A49.8 - Other bacterial infections of unspecified site; Z16.12 - Extended spectrum beta lactamase (ESBL) resistance Plan: - Pt is a 76 y/o female with multiple medical issues and recent health-related complications, including PE/DVT, A. fib on chronic anticoagulation, recent SDH and who was most recently hospitalized from 09/23/17 to 09/26/17 after a fall in the parking lot at her PCP's office when she lost her balance. She was found to have an acute fracture of L5 without any significant compression deformity or any significant compromise to the thecal sac or the exiting nerve roots, otherwise chronic and benign changes. Neurosurgery was consulted during admission and no surgical intervention recommended at this time. - Pt was noted to have a UTI during admission and was treated as an inpt with Rocephin. - She had a previous UTI in June 2017 with noted two isolates of E. coli. The case was reviewed with [facility] prior to discharge they felt that the pt had similar findings with this culture as well but the culture was not finalized prior to discharge. Pt was prescribed Cefuroxime 250mg po BID x 10 days at discharge on 09/26/17 - We followed the Urine culture results and it grew out ESBL E. coli UTI - Pt was called to re-admit to the hospital for mid line IV placement, ID consultation, and to start IV antibiotics. - Pt has been fever free since discharge - Monitor labs - Supportive care - DVT prophylaxis (2) L5 vertebral fracture ICD Codes: S32.059A - Unspecified fracture of fifth lumbar vertebra, initial encounter for closed fracture Status: Acute Plan: - Pt had a recent call and was found to have l5 vertebral fracture. - Pt was seen by Neurosurgery and no surgical intervention felt to be necessary at this time - Pt recommended for LSO brace when OOB. - Pt recommended to avoid reaching and bending. - Neurosurgery recommending a follow-up lumbar spine x-ray in approximately 10- 14 days with additional imaging at approximately 6 and 12 weeks following her initial fracture to ensure stability of the fracture healing site. - Cont. PT (3) Debility ICD Codes: R53.81 - Other malaise Status: Chronic Plan: - See above (4) Atrial fibrillation ICD Codes: I48.91 - Unspecified atrial fibrillation Status: Chronic Plan: - Home meds continued (5) Pulmonary embolism ICD Codes: I26.99 - Other pulmonary embolism without acute cor pulmonale Status: Chronic Plan: - Pt had recent Pulmonary embolism (06/2017) and Bilateral LE DVT (06/2017) on chronic anticoagulation - Pt was resumed on Xarelto during her previous admission in 07/2017 - Cont. Xarelto (6) Chronic anticoagulation ICD Codes: Z79.01 - MCFP (current) use of anticoagulants Status: Chronic (7) HTN (hypertension) ICD Codes: I10 - Essential (primary) hypertension Status: Chronic Plan: - Home meds continued (8) Hyperlipidemia ICD Codes: E78.5 - Hyperlipidemia, unspecified Status: Chronic Plan: - Home meds continued (9) Gastroesophageal reflux disease ICD Codes: K21.9 - Gastro-esophageal reflux disease without esophagitis Status: Chronic Plan: - PPI Assessment and Plan Patient examined. Assessment and plan formulated with Lea Ivey PA-C. I agree with the above. Physician Certification 2 Midnight Certification Type: Admission for Inpatient Services Order for Inpatient Services The services are ordered in accordance with Medicare regulations or non- Medicare payer requirements, as applicable. In the case of services not specified as inpatient-only, they are appropriately provided as inpatient services in accordance with the 2-midnight benchmark. Estimated LOS (days): 2 2 days is the estimated time the patient will need to remain in the hospital, assuming treatment plan goals are met and no additional complications. Post-Hospital Plan: Home Health Problem Qualifiers (1) L5 vertebral fracture: (2) Atrial fibrillation: Qualified Codes: I48.2 - Chronic atrial fibrillation Lea Ivey Sep 28, 2017 13:13 Ivan Michael DO Oct 02, 2017 00:51
[2017-09-28 16:00] VITALS: BP 126/67; PULSE 72; RESP 17; TEMP 96.8; O2SAT 98
--- NOTE | 2017-09-28 16:08 | MB ---
cc: CARMELITA SCHILLING MD DATE OF CONSULTATION 09/28/[address] Pereira REASON FOR CONSULTATION Resistant urinary tract infection. ESBL E-coli. HISTORY OF PRESENT ILLNESS This is a 76-year-old white female who was recently admitted to the hospital on August 23 after she fell. The patient was noted to have L5 fracture. She was evaluated by neurosurgery because when she fell she hit the back of her head. It was felt that she needed no surgical intervention for the fracture. The patient is cared for at home by her son. He states that he noticed that she had concentrated dark-colored, foul-smelling urine last ThursdaySeptember 23. He mentioned that she took a sample of urine to the primary care physician and he prescribed an antibiotic but at the same day she sustained a fall around the time when she saw her primary physician and she was brought to the hospital for evaluation on August 23. Her white count was normal. The urine culture was taken on 09/24 after a urinalysis was noted to be remarkable for many white cells. The patient was discharged from the hospital on September 26. The urine culture came back with ESBL E-coli greater than 100,000 colonies. She was readmitted to the hospital for antibiotics and this consultation is requested. The patient states that she feels okay. She denies dysuria, abdominal pain, or back pain. The son mentioned that she has not been eating much and she has not been taking much in the way of fluids. She wears a diaper and uses a bedside commode for urination. The white blood cell count today is 11.8. Her temperature is 95.5. She denies chills. She has no nausea or vomiting. PAST MEDICAL HISTORY 1. Hypertension. 2. Gastroesophageal reflux. 3. Dyslipidemia. 4. Irritable bowel syndrome. 5. Obstructive sleep apnea. 6. DVT June 2017. 7. Pulmonary embolism June 2017. 8. L5 vertebral fracture. 9. Laparoscopic assisted loop colostomy. 10. Cholecystectomy. 11. Bilateral total knee replacement. 12. Cataract surgery. ALLERGIES PIPERACILLIN/TAZOBACTAM, CODEINE, CHLORHEXIDINE. MEDICATIONS 1. Invanz. 2. Cardizem. 3. Digoxin. 4. Cymbalta. 5. Protonix. 6. Potassium. 7. Xarelto. 8. Keppra. 9. Lasix. SOCIAL HISTORY No tobacco, no alcohol. No illicit drugs. FAMILY HISTORY Noncontributory. REVIEW OF SYSTEMS Negative on 10-point review. PHYSICAL EXAMINATION GENERAL: This is a pleasant, slender female in no acute distress. VITAL SIGNS: Temperature 95.5, blood pressure 120/66, respiratory rate 21, heart rate 92. HEENT: Head atraumatic. Extraocular movements grossly intact. No icterus. Oropharynx moist mucosa without lesions. NECK: Supple. No adenopathy. No swelling. LUNGS: Clear breath sounds which are diminished. HEART: Regular S1-S2 without murmurs. ABDOMEN: Bowel sounds present, soft, no tenderness appreciated. The patient has a colostomy at the right lower abdomen which appears functioning. RECTAL: Not performed. EXTREMITIES: No clubbing or cyanosis or edema. SKIN: The skin very dry but the skin is warm. NEUROLOGIC: Patient alert and oriented. No gross focal findings. PSYCHIATRIC: The patient is calm and cooperative. LABORATORY DATA WBC 11.8, 81% neutrophils, platelet count 237, hemoglobin 14.4. Creatinine 0.76, BUN 15, estimated GFR 74, sodium 138. IMPRESSION Urinary tract infection with ESBL E-coli. RECOMMENDATIONS Continue to treat the patient with Invanz given the resistant nature of the bacteria. She could be given the Invanz for 5 days as an outpatient and she can be treated that way and have a repeat urine culture taken outpatient. Otherwise we would have to repeat the urine culture in a few days in the hospital to check for clearance and to decide whether or when the Invanz can be discontinued. This plan has been discussed with Dr. Michael. Thank you for this consultation. Carmelita Schilling MD FD/DEMI /1:17 PM /3:25 PM
[2017-09-28 17:12] LABS: AUTOMATED NEUTROPHIL # 5.9 TH/MM3 (1.8-7.7); BASOPHIL # 0.1 TH/MM3 (0-0.2); BASOPHIL % 0.7 % (0.0-2.0); EOSINOPHIL # 0.2 TH/MM3 (0-0.4); EOSINOPHIL % 2.7 % (0.0-4.0); HEMOGLOBIN 12.2 GM/DL (11.6-15.3); LYMPH % 14.4 % (9.0-44.0); LYMPHOCYTE # 1.1 TH/MM3 (1.0-4.8); MEAN CELL VOLUME 92.9 FL (80.0-100.0); MEAN CORPUSCULAR HEMOGLOBIN 32.5 PG (27.0-34.0); MEAN PLATELET VOLUME 7.8 FL (7.0-11.0); MONOCYTE # 0.6 TH/MM3 (0-0.9); NEUT % 75.2 % (16.0-70.0); PLATELET COUNT 229 TH/MM3 (150-450); RED BLOOD COUNT 3.76 MIL/MM3 (4.00-5.30); RED CELL DISTRIBUTION WIDTH 14.9 % (11.6-17.2); WHITE BLOOD COUNT 7.9 TH/MM3 (4.0-11.0)
[2017-09-28 17:26] LABS: ALBUMIN 2.6 GM/DL (3.4-5.0); AST (GOT) 19 U/L (15-37); BICARBONATE 33.6 MEQ/L (21.0-32.0); BLOOD UREA NITROGEN 12 MG/DL (7-18); CALCIUM 9.5 MG/DL (8.5-10.1); CHLORIDE 98 MEQ/L (98-107); CREATININE 0.57 MG/DL (0.50-1.00); GLOMERULAR FILTRATION RATE 103 ML/MIN (>89); GLUCOSE,RANDOM 128 MG/DL (74-106); MAGNESIUM 1.4 MG/DL (1.5-2.5); SODIUM (NA) 137 MEQ/L (136-145)
[2017-09-28 17:29] LABS: ALKALINE PHOSPHATASE 157 U/L (45-117); ALT (GPT) 26 U/L (10-53); TOTAL BILIRUBIN ADULT 0.7 MG/DL (0.2-1.0); TOTAL PROTEIN 6.5 GM/DL (6.4-8.2)
[2017-09-28] MEDS: FUROSEMIDE 20 MG TAB PO SCH (17:29)
[2017-09-28 20:00] VITALS: BP 111/61; PULSE 78; RESP 17; TEMP 98.3; O2SAT 96
[2017-09-28] MEDS ORDERED: SODIUM CHLORIDE 0.9% FLUSH 10 ML FLUSH IV FLUSH SCH (21:00)
[2017-09-28] MEDS: levETIRAcetam 500 MG TAB PO SCH (21:10)
[2017-09-29] VITALS: BP 125/80; PULSE 82; RESP 16; TEMP 97.4; O2SAT 97
[2017-09-29] MEDS ORDERED: ERTAPENEM INJ 1,000 MG in SODIUM CHLORIDE 0.9% INJ 100 ML IV SCH ×2 (00:30→17:00)
[2017-09-29 08:00] VITALS: BP 130/72; PULSE 82; RESP 17; TEMP 95.8; O2SAT 99
[2017-09-29] MEDS: levETIRAcetam 500 MG TAB PO SCH (08:36)
[2017-09-29] MEDS: FUROSEMIDE 20 MG TAB PO SCH ×2 (08:37→17:36)
[2017-09-29] MEDS ORDERED: POTASSIUM CHLORIDE 10 MEQ CONTROLLED RELEASE TAB PO SCH (09:00)
[2017-09-29] MEDS ORDERED: DILTIAZEM-CD 240 MG CAP ER PO SCH (09:00)
[2017-09-29] MEDS ORDERED: DULoxetine HCl DR 30 MG CAP PO SCH (09:00)
[2017-09-29] MEDS ORDERED: RIVAROXABAN 20 MG TAB PO SCH (09:00)
[2017-09-29] MEDS ORDERED: PANTOPRAZOLE SOD 40 MG DELAYED RELEASE TAB PO SCH (09:00)
[2017-09-29] MEDS ORDERED: DIGOXIN 0.125 MG TAB PO SCH (09:00)
[2017-09-29 12:00] VITALS: BP 105/71; PULSE 85; RESP 17; TEMP 98; O2SAT 96
--- NOTE | 2017-09-29 13:57 | HHI.FF ---
Face to Face Verification Diagnosis: (1) Infection due to ESBL-producing Escherichia coli (2) L5 vertebral fracture (3) Chronic anticoagulation (4) HTN (hypertension) (5) Pulmonary embolism (6) Hyperlipidemia (7) Gastroesophageal reflux disease (8) Atrial fibrillation (9) Debility Physical Therapy Order: Evaluate and Treat, Improve ambulation Home Health Nursing Order: Nursing assessment with vital signs IV medication administration I have seen patient Kimi Padilla on 09/29/17. My clinical findings support the need for the requested home health care services because: Deconditioned w/ increased weakness Infection w/ risk of complications I certify that my clinical findings support that this patient is homebound because: Impaired cognitive ability/safety Unsteady gait/balance Lea Ivey Sep 29, 2017 13:56
[2017-09-29] MEDS ORDERED: INVA1INJ IV (13:58)
--- NOTE | 2017-09-29 14:25 | HHI.PR ---
Subjective Remarks No new complaints Pt has been afebrile She is anxious to go home Objective Vitals Vital Signs Date Time Temp Pulse Resp B/P (MAP) Pulse Ox O2 Delivery O2 Flow Rate FiO2 09/29/17 12:00 98.0 85 17 105/71 (82) 96 09/29/17 08:00 95.8 82 17 130/72 (91) 99 09/29/17 00:00 97.4 82 16 125/80 (95) 97 09/28/17 20:00 98.3 78 17 111/61 (78) 96 09/28/17 16:00 96.8 72 17 126/67 (86) 98 Result Diagram: 09/28/17 1649 09/28/17 1649 Other Results Laboratory Tests Test 09/28/17 16:49 White Blood Count 7.9 TH/MM3 Red Blood Count 3.76 MIL/MM3 Hemoglobin 12.2 GM/DL Hematocrit 35.0 % Mean Corpuscular Volume 92.9 FL Mean Corpuscular Hemoglobin 32.5 PG Mean Corpuscular Hemoglobin Concent 35.0 % Red Cell Distribution Width 14.9 % Platelet Count 229 TH/MM3 Mean Platelet Volume 7.8 FL Neutrophils (%) (Auto) 75.2 % Lymphocytes (%) (Auto) 14.4 % Monocytes (%) (Auto) 7.0 % Eosinophils (%) (Auto) 2.7 % Basophils (%) (Auto) 0.7 % Neutrophils # (Auto) 5.9 TH/MM3 Lymphocytes # (Auto) 1.1 TH/MM3 Monocytes # (Auto) 0.6 TH/MM3 Eosinophils # (Auto) 0.2 TH/MM3 Basophils # (Auto) 0.1 TH/MM3 CBC Comment DIFF FINAL Differential Comment Blood Urea Nitrogen 12 MG/DL Creatinine 0.57 MG/DL Random Glucose 128 MG/DL Total Protein 6.5 GM/DL Albumin 2.6 GM/DL Calcium Level 9.5 MG/DL Magnesium Level 1.4 MG/DL Alkaline Phosphatase 157 U/L Aspartate Amino Transf (AST/SGOT) 19 U/L Alanine Aminotransferase (ALT/SGPT) 26 U/L Total Bilirubin 0.7 MG/DL Sodium Level 137 MEQ/L Potassium Level 3.7 MEQ/L Chloride Level 98 MEQ/L Carbon Dioxide Level 33.6 MEQ/L Anion Gap 5 MEQ/L Estimat Glomerular Filtration Rate 103 ML/MIN Objective Remarks General: NAD, AAOx3 Chest: CTA Cardiac: Regular Abd: +BS, soft ND/NT Ext: No edema A/P Problem List: (1) Infection due to ESBL-producing Escherichia coli ICD Codes: A49.8 - Other bacterial infections of unspecified site; Z16.12 - Extended spectrum beta lactamase (ESBL) resistance Plan: - Pt is a 76 y/o female with multiple medical issues and recent health-related complications, including PE/DVT, A. fib on chronic anticoagulation, recent SDH and who was most recently hospitalized from 09/23/17 to 09/26/17 after a fall in the parking lot at her PCP's office when she lost her balance. She was found to have an acute fracture of L5 without any significant compression deformity or any significant compromise to the thecal sac or the exiting nerve roots, otherwise chronic and benign changes. Neurosurgery was consulted during admission and no surgical intervention recommended at this time. - Pt was noted to have a UTI during admission and was treated as an inpt with Rocephin. - She had a previous UTI in June 2017 with noted two isolates of E. coli. The case was reviewed with [facility] prior to discharge they felt that the pt had similar findings with this culture as well but the culture was not finalized prior to discharge. Pt was prescribed Cefuroxime 250mg po BID x 10 days at discharge on 09/26/17 - We followed the Urine culture results and it grew out ESBL E. coli UTI - Pt was re-admitted to the hospital on 09/28/17 for mid line IV placement, ID consultation, and to start IV antibiotics. - Appreciate ID consultation - Pt had midline placed - Pt has been started on Invanz - Case discussed with ID and they would like to continue the pt on Invanz for 6 more days and recheck UA on 10/02/[address] Shad Apple - Pt has been fever free - We will arrange for HHC/PT - She will need to followup with her PCP, Dr. Apple, in 1 week (2) L5 vertebral fracture ICD Codes: S32.059A - Unspecified fracture of fifth lumbar vertebra, initial encounter for closed fracture Status: Acute Plan: - Pt had a recent call and was found to have l5 vertebral fracture. - Pt was seen by Neurosurgery and no surgical intervention felt to be necessary at this time - Pt recommended for LSO brace when OOB. - Pt recommended to avoid reaching and bending. - Neurosurgery recommending a follow-up lumbar spine x-ray in approximately 10- 14 days with additional imaging at approximately 6 and 12 weeks following her initial fracture to ensure stability of the fracture healing site. - Cont. PT (3) Debility ICD Codes: R53.81 - Other malaise Status: Chronic Plan: - See above (4) Atrial fibrillation ICD Codes: I48.91 - Unspecified atrial fibrillation Status: Chronic Plan: - Home meds continued (5) Pulmonary embolism ICD Codes: I26.99 - Other pulmonary embolism without acute cor pulmonale Status: Chronic Plan: - Pt had recent Pulmonary embolism (06/2017) and Bilateral LE DVT (06/2017) on chronic anticoagulation - Pt was resumed on Xarelto during her previous admission in 07/2017 - Cont. Xarelto (6) Chronic anticoagulation ICD Codes: Z79.01 - detention (current) use of anticoagulants Status: Chronic (7) HTN (hypertension) ICD Codes: I10 - Essential (primary) hypertension Status: Chronic Plan: - Home meds continued (8) Hyperlipidemia ICD Codes: E78.5 - Hyperlipidemia, unspecified Status: Chronic Plan: - Home meds continued (9) Gastroesophageal reflux disease ICD Codes: K21.9 - Gastro-esophageal reflux disease without esophagitis Status: Chronic Plan: - PPI Assessment and Plan Patient examined. Assessment and plan formulated with Lea Ivey PA-C. I agree with the above. Problem Qualifiers (1) L5 vertebral fracture: (2) Atrial fibrillation: Qualified Codes: I48.2 - Chronic atrial fibrillation Lea Ivey Sep 29, 2017 14:25 Ivan Michael DO Oct 02, 2017 00:50
--- NOTE | 2017-09-29 14:36 | HHI.FF ---
Infusion Therapy Location of Infusion Therapy: Home Health Care IV Infusion Order Patient Information Patient Weight Diagnosis: (1) UTI (urinary tract infection) Coded Allergies: codeine (Verified Allergy, Severe, NAUSEA, 09/23/17) chlorhexidine (Verified Allergy, Intermediate, Rash, , 09/23/17) piperacillin (Verified Allergy, Intermediate, Rash, 09/23/17) tazobactam (Verified Allergy, Intermediate, Rash, 09/23/17) Administer Medication Ertapenem 1 gram IV q 24 hours Stop Treatment: Oct 02, 2017 Additional Information Venous access: PICC Line Additional Instructions [x] Peripheral flush and dressing changes per protocol [x] Implanted port and central gas line repairer: * Implanted port: 10 ml Normal Saline followed by 5 ml Heparin 100 units/ml Heparin flush after each use and monthly to maintain. [] May leave port accessed during therapy. [] May leave peripheral site accessed for duration of therapy. [x] If patient has SOB or respiratory distress, check oxygen saturation. If less than 90% or clinical signs of respiratory distress, administer oxygen at 2 L/min. via nasal cannula and notify physician. [x] Anaphylaxis/Reaction orders: * Stop infusion. * Keep IV line open with saline flush. * Notify physician. * Monitor vital signs every 15 minutes until symptoms resolve. * Check Oxygen saturation; Oxygen at 2 L/min. via nasal cannula if less than 90% or clinical signs of respiratory distress. * Administer diphenhydramine (Benadryl) 25 mg IV STAT, (unless patient has received as pre-med). May repeat once, if necessary. * Solu-Cortef 250 mg IVP over 30-60 seconds, use 100 mg vials for each dissolution. * Epinephrine (1mg/1 ml) 0.3 mg subcutaneously or IVP now with any signs of respiratory distress. * Check with physician for new additional pre-med orders if patient is re- challenged or re-treated. [x] May remove PICC line when treatment complete, after confirming with Physician. [x] If the patient is admitted to the hospital, the ED, or transferred via [facility] , complete transfer form including medication reconciliation order sheet. Miguel Diaz MD Sep 29, 2017 14:36
--- NOTE | 2017-09-29 14:42 | HHI.IDPN ---
Note Infectious Disease Note Patient feels okay. Was up in chair and notes a little back pain. Afebrile. PAST MEDICAL HISTORY 1. Hypertension. 2. Gastroesophageal reflux. 3. Dyslipidemia. 4. Irritable bowel syndrome. 5. Obstructive sleep apnea. 6. DVT June 2017. 7. Pulmonary embolism June 2017. 8. L5 vertebral fracture. 9. Laparoscopic assisted loop colostomy. 10. Cholecystectomy. 11. Bilateral total knee replacement. 12. Cataract surgery. ALLERGIES PIPERACILLIN/TAZOBACTAM, CODEINE, CHLORHEXIDINE. ANTIBIOTIC Invanz. SOCIAL HISTORY No tobacco, no alcohol. No illicit drugs. OBJECTIVE: Vital Signs Date Time Temp Pulse Resp B/P (MAP) Pulse Ox O2 Delivery O2 Flow Rate FiO2 09/29/17 12:00 98.0 85 17 105/71 (82) 96 09/29/17 08:00 95.8 82 17 130/72 (91) 99 09/29/17 00:00 97.4 82 16 125/80 (95) 97 09/28/17 20:00 98.3 78 17 111/61 (78) 96 09/28/17 16:00 96.8 72 17 126/67 (86) 98 Laboratory Tests Test 09/28/17 16:49 White Blood Count 7.9 TH/MM3 Red Blood Count 3.76 MIL/MM3 Hemoglobin 12.2 GM/DL Hematocrit 35.0 % Mean Corpuscular Volume 92.9 FL Mean Corpuscular Hemoglobin 32.5 PG Mean Corpuscular Hemoglobin Concent 35.0 % Red Cell Distribution Width 14.9 % Platelet Count 229 TH/MM3 Mean Platelet Volume 7.8 FL Neutrophils (%) (Auto) 75.2 % Lymphocytes (%) (Auto) 14.4 % Monocytes (%) (Auto) 7.0 % Eosinophils (%) (Auto) 2.7 % Basophils (%) (Auto) 0.7 % Neutrophils # (Auto) 5.9 TH/MM3 Lymphocytes # (Auto) 1.1 TH/MM3 Monocytes # (Auto) 0.6 TH/MM3 Eosinophils # (Auto) 0.2 TH/MM3 Basophils # (Auto) 0.1 TH/MM3 CBC Comment DIFF FINAL Differential Comment Laboratory Tests Test 09/28/17 16:49 Blood Urea Nitrogen 12 MG/DL Creatinine 0.57 MG/DL Random Glucose 128 MG/DL Total Protein 6.5 GM/DL Albumin 2.6 GM/DL Calcium Level 9.5 MG/DL Magnesium Level 1.4 MG/DL Alkaline Phosphatase 157 U/L Aspartate Amino Transf (AST/SGOT) 19 U/L Alanine Aminotransferase (ALT/SGPT) 26 U/L Total Bilirubin 0.7 MG/DL Sodium Level 137 MEQ/L Potassium Level 3.7 MEQ/L Chloride Level 98 MEQ/L Carbon Dioxide Level 33.6 MEQ/L Anion Gap 5 MEQ/L Estimat Glomerular Filtration Rate 103 ML/MIN PHYSICAL EXAMINATION GENERAL: No acute distress. HEENT: Head atraumatic. Extraocular movements grossly intact. No icterus. Oropharynx moist mucosa without lesions. NECK: Supple. No adenopathy. No swelling. LUNGS: Clear breath sounds. HEART: Regular S1-S2 without murmurs. ABDOMEN: Bowel sounds present, soft, no tenderness appreciated. EXTREMITIES: No clubbing or cyanosis or edema. SKIN: The skin very dry but the skin is warm. NEUROLOGIC: Patient alert and oriented. No gross focal findings. PSYCHIATRIC: Calm and cooperative. IMPRESSION Urinary tract infection with ESBL E-coli. RECOMMENDATIONS IV Invanz through 10/02/17. Orders written on IV antibiotic form. Okay to discharge from ID standpoint when IV antibiotic is arranged. Miguel Diaz MD Sep 29, 2017 14:42
[2017-09-29] MEDS: MAGNESIUM SULFATE 1 GM PREMIX 100 ML IV SCH ×2 (14:58→16:37)
[2017-09-29 16:00] VITALS: BP 133/68; PULSE 67; RESP 21; TEMP 96.4; O2SAT 100
== END 2017-09-29 18:47 | disposition home health service (06) ==
LOC: INTOOBSV 10:58 → N07B 10:58
PROVIDERS: ADMIT Hospitalist; ATTEND Hospitalist
DX: N39.0 Urinary tract infection, site not specified (principal); B96.20 Unspecified Escherichia coli [E. coli] as the cause of diseases classified elsewhere; R30.0 Dysuria; I48.2 Chronic atrial fibrillation; K21.9 Gastro-esophageal reflux disease without esophagitis; E78.5 Hyperlipidemia, unspecified; G47.33 Obstructive sleep apnea (adult) (pediatric); K58.9 Irritable bowel syndrome, unspecified; S32.059A Unspecified fracture of fifth lumbar vertebra, initial encounter for closed fracture; R53.81 Other malaise; Z16.12 Extended spectrum beta lactamase (ESBL) resistance; Z79.01 Long term (current) use of anticoagulants; Z87.440 Personal history of urinary (tract) infections; Z86.718 Personal history of other venous thrombosis and embolism; S09.90XA Unspecified injury of head, initial encounter; Q89.9 Congenital malformation, unspecified; Z79.899 Other long term (current) drug therapy; W01.0XXA Fall on same level from slipping, tripping and stumbling without subsequent striking against object, initial encounter; Y92.481 Parking lot as the place of occurrence of the external cause; M54.5 Low back pain; M47.816 Spondylosis without myelopathy or radiculopathy, lumbar region; E04.2 Nontoxic multinodular goiter; S30.0XXA Contusion of lower back and pelvis, initial encounter; K44.9 Diaphragmatic hernia without obstruction or gangrene; D73.5 Infarction of spleen; I50.9 Heart failure, unspecified; I11.0 Hypertensive heart disease with heart failure; Z86.73 Personal history of transient ischemic attack (TIA), and cerebral infarction without residual deficits; Z86.711 Personal history of pulmonary embolism
CPT/HCPCS: 36569; 76937; 80053; 83735; 85025; 97162; G0378; G8987; G8988; J1335; J3475

== ENCOUNTER 2017-10-04 16:04 | Emergency (ER) | payer MEDICARE ==
[~2017-10-04] VITALS: Ht 170.2 cm; Wt 73.0 kg
[~2017-10-04 16:04] MED LIST changes: -CEFU1TAB18 PO; +INVA1INJ IV
[2017-10-04 16:05] VITALS: BP 173/83; PULSE 86; RESP 16; TEMP 98.4; O2SAT 96
[2017-10-04] MEDS ORDERED: SODIUM CHLORIDE 0.9% FLUSH 10 ML FLUSH IV FLUSH PRN (16:45)
--- NOTE | 2017-10-04 16:51 | PD ---
HPI Chief Complaint: Complaint Time Seen by Provider: 16:37 Travel History International Travel<30 days: No Contact w/Intl Traveler<30days: No Traveled to known affect area: No History of Present Illness HPI This patient is brought in by family members. They're concerned that she was hallucinating for the last couple of days. She's had a bit of confusion. She is at some minor spells where she seemed off. She denies hearing voices or seeing things. No fever or head injury. She does take a blood thinner and complains of mild headache. Duration 2 days. Severity is mild to moderate. No alleviating factors. The report she's only had one hydrocodone yesterday and none today. They don't think it's the medication. No exacerbating factors. She currently gets outpatient antibiotics for resistant UTI PFSH Past Medical History Hx Anticoagulant Therapy: Yes Arthritis: Yes Asthma: No Atrial Fibrillation: Yes Autoimmune Disease: No Blood Disorders: No Anxiety: Yes Depression: No Heart Rhythm Problems: Yes (Afib) Cancer: No Cardiovascular Problems: Yes High Cholesterol: Yes Chemotherapy: No Chest Pain: No Congestive Heart Failure: Yes COPD: Yes Cerebrovascular Accident: Yes (BLEED) Diabetes: No Diminished Hearing: No Deep Vein Thrombosis: Yes (+RLE DVT (08/22/17) hx of DVT's and PE's) Endocrine: No Gastrointestinal Disorders: Yes (HX DIVERTICULITIS) GERD: Yes Genitourinary: No Headaches: No Hiatal Hernia: Yes Heparin Induced Thrombocytopen: No Hypertension: Yes Immune Disorder: No Implanted Vascular Access Dvce: Yes Kidney Stones: No Musculoskeletal: No Neurologic: Yes (brain bleed 2016) Psychiatric: No Reproductive: No Respiratory: No Immunizations Current: Yes Migraines: No Radiation Therapy: No Renal Failure: No Seizures: Yes (2017) Sickle Cell Disease: No Sleep Apnea: No Thyroid Disease: Yes (nodules) Ulcer: No Menopausal: Yes Past Surgical History Abdominal Surgery: Yes (gall bladder; loop colostomy; fistula repair) AICD: No Arteriovenous Shunt: No Body Medical Devices: COLOSTOMY BAG APR 2016 Cardiac Surgery: No Cholecystectomy: Yes Ear Surgery: No Endocrine Surgery: No Eye Surgery: Yes (cataract bilateral) Genitourinary Surgery: No Gynecologic Surgery: No Insulin Pump: No Joint Replacement: Yes (bilateral knees) Neurologic Surgery: No Oral Surgery: No Pacemaker: No Thoracic Surgery: No Other Surgery: Yes Social History Alcohol Use: No Tobacco Use: No Substance Use: No Allergies-Medications (Allergen,Severity, Reaction): Coded Allergies: codeine (Verified Allergy, Severe, NAUSEA, 10/04/17) chlorhexidine (Verified Allergy, Intermediate, Rash, , 10/04/17) piperacillin (Verified Allergy, Intermediate, Rash, 10/04/17) tazobactam (Verified Allergy, Intermediate, Rash, 10/04/17) Reported Meds & Prescriptions Reported Meds & Active Scripts Active Invanz Inj (Ertapenem) 1 Gm Addvial 1 Gm IV Q24H 5 Days ADMINISTER IN 100ML NS Hydrocodone-Acetamin 5-325 mg (Hydrocodone/Acetaminophen) 5 Mg-325 Mg Tablet 1 Tab PO Q4H PRN Xarelto (Rivaroxaban) 20 Mg Tab 20 Mg PO DAILY Furosemide 20 Mg Tab 20 Mg PO BID@,18 30 Days Keppra (Levetiracetam) 500 Mg Tab 500 Mg PO Q12HR Cardizem CD 24 HR (Diltiazem CD 24 HR) 240 Mg Caper 240 Mg PO DAILY 30 Days Pantoprazole (Pantoprazole Sodium) 40 Mg Tab 40 Mg PO DAILY Klor-Con 10 (Potassium Chloride) 10 Meq Tab 20 Meq PO DAILY Duoneb (Ipratropium-Albuterol Neb) 0.5-2.5 Mg/3 Ml Neb 1 Ampule NEB Q4HR NEB PRN 30 Days Reported Digoxin 0.125 Mg Tab 0.125 Mg PO DAILY Duloxetine DR (Duloxetine HCl) 30 Mg Capdr 30 Mg PO DAILY Review of Systems General / Constitutional: No: Fever Eyes: No: Visual changes HENT: No: Headaches Cardiovascular: No: Chest Pain or Discomfort Respiratory: No: Shortness of Breath Gastrointestinal: No: Abdominal Pain Genitourinary: No: Dysuria Musculoskeletal: No: Pain Skin: No Rash Neurologic: Positive: Change in Mentation, No: Weakness Psychiatric: No: Depression Endocrine: No: Polydipsia Hematologic/Lymphatic: No: Easy Bruising Physical Exam Narrative GENERAL: Well-nourished, well-developed patient in no apparent distress. SKIN: Focused skin assessment reveals no rash and nodules. Skin is Warm and dry. HEAD: Atraumatic. Normocephalic. EYES: Pupils equal and round. No scleral icterus. No injection or drainage. ENT: No nasal bleeding or discharge. Mucous membranes pink and moist. NECK: Trachea midline. No JVD. No meningeal signs CARDIOVASCULAR: Regular rate and rhythm. No murmur appreciated. RESPIRATORY: No accessory muscle use. Clear to auscultation. Breath sounds equal bilaterally. GASTROINTESTINAL: Abdomen soft, non-tender, nondistended. Hepatic and splenic margins not palpable. MUSCULOSKELETAL: No obvious deformities. No clubbing. No cyanosis. No edema. NEUROLOGICAL: Awake and alert. No obvious cranial nerve deficits. Motor grossly within normal limits. Normal speech. PSYCHIATRIC: Appropriate mood and affect; insight and judgment seems reasonable this time . Data Data Last Documented VS Vital Signs Date Time Temp Pulse Resp B/P (MAP) Pulse Ox O2 Delivery O2 Flow Rate FiO2 10/04/17 18:07 78 20 171/75 (107) 97 Room Air 10/04/17 16:05 98.4 Orders Orders Basic Metabolic Panel (Bmp) (10/04/17 16:45) Complete Blood Count With Diff (10/04/17 16:45) Urinalysis - C+S If Indicated (10/04/17 16:45) Ct Brain W/O Iv Contrast(Rout) (10/04/17 16:45) Iv Access Insert/Monitor (10/04/17 16:45) Sodium Chloride 0.9% Flush (Ns Flush) (10/04/17 16:45) Cath For Specimen (10/04/17 18:32) Labs Laboratory Tests Test 10/04/17 17:30 10/04/17 17:45 White Blood Count 6.9 TH/MM3 Red Blood Count 3.62 MIL/MM3 Hemoglobin 11.7 GM/DL Hematocrit 34.1 % Mean Corpuscular Volume 94.3 FL Mean Corpuscular Hemoglobin 32.3 PG Mean Corpuscular Hemoglobin Concent 34.2 % Red Cell Distribution Width 15.1 % Platelet Count 276 TH/MM3 Mean Platelet Volume 7.2 FL Neutrophils (%) (Auto) 68.5 % Lymphocytes (%) (Auto) 18.6 % Monocytes (%) (Auto) 9.1 % Eosinophils (%) (Auto) 3.0 % Basophils (%) (Auto) 0.8 % Neutrophils # (Auto) 4.7 TH/MM3 Lymphocytes # (Auto) 1.3 TH/MM3 Monocytes # (Auto) 0.6 TH/MM3 Eosinophils # (Auto) 0.2 TH/MM3 Basophils # (Auto) 0.1 TH/MM3 CBC Comment DIFF FINAL Differential Comment Blood Urea Nitrogen 12 MG/DL Creatinine 0.68 MG/DL Random Glucose 109 MG/DL Calcium Level 9.8 MG/DL Sodium Level 135 MEQ/L Potassium Level 3.8 MEQ/L Chloride Level 99 MEQ/L Carbon Dioxide Level 31.2 MEQ/L Anion Gap 5 MEQ/L Estimat Glomerular Filtration Rate 84 ML/MIN Urine Color YELLOW Urine Turbidity HAZY Urine pH 5.5 Urine Specific [place] 1.021 Urine Protein TRACE mg/dL Urine Glucose (UA) NEG mg/dL Urine Ketones NEG mg/dL Urine Occult Blood NEG Urine Nitrite NEG Urine Bilirubin NEG Urine Urobilinogen 2.0 MG/DL Urine Leukocyte Esterase NEG Urine RBC 2 /hpf Urine WBC 3 /hpf Urine Squamous Epithelial Cells <1 /hpf Urine Hyaline Casts 12 /lpf Urine Mucus MANY /lpf Microscopic Urinalysis Comment CATH-CULT NOT IND MDM Medical Decision Making Medical Screen Exam Complete: Yes Emergency Medical Condition: Yes Medical Record Reviewed: Yes Differential Diagnosis Medication side effect, electrolyte, intracranial hemorrhage Narrative Course I have reviewed the patient's electronic medical record. Reviewed her last admission which was recent. Spoke with [facility] physician who knows her well Dr. Michael Ordering a mental status workup She is neurologically intact and seems quite mentally normal at this time IV placed CBC is normal Metabolic profile is normal Urinalysis is clean CT brain is negative Workup here is negative patient is stable for outpatient follow-up. Recommend stopping hydrocodone and follow-up with primary care Diagnosis Primary Impression: Confusion and disorientation Additional Instructions: The patient was advised to follow up with their physician and return if they worsen. Med/Other Pt SpecificInfo: Other Disposition: 01 DISCHARGE HOME Condition: Stable Nate Knight MD Oct 04, 2017 16:51
--- NOTE | 2017-10-04 17:58 | RADRPT ---
EXAM DATE/TIME: 10/04/2017 17:13 [place] COMPARISON: CT BRAIN W/O CONTRAST, September 23, 2017, 17:29. INDICATIONS : Altered mental status. RADIATION DOSE: 69.15 CTDIvol (mGy) MEDICAL HISTORY : Seizures. Myocardial infarction. traumatic brain injury, deep vein thrombosis, pulmonary embolism SURGICAL HISTORY : bilateral lens replacement ENCOUNTER: Initial ACUITY: 1 day PAIN SCALE: 0/10 LOCATION: Bilateral head TECHNIQUE: Multiple contiguous axial images were obtained of the head. Using automated exposure control and adj ustment of the mA and/or kV according to patient size, radiation dose was kept as low as reasonably a chievable to obtain optimal diagnostic quality images. DICOM format image data is available electro nically for review and comparison. FINDINGS: CEREBRUM: The ventricles are normal for age. No evidence of midline shift, mass lesion, hemorrhage or acute in farction. No extra-axial fluid collections are seen. POSTERIOR FOSSA: The cerebellum and brainstem are intact. The 4th ventricle is midline. The cerebellopontine angle i s unremarkable. EXTRACRANIAL: The visualized portion of the orbits is intact. SKULL: The calvaria is intact. No evidence of skull fracture. CONCLUSION: 1. No evidence of acute intracranial pathology. No masses are identified. Vamshi Fernandez MD on October 04, 2017 at 17:55 Board Certified Radiologist. This report was verified electronically.
[2017-10-04 18:01] LABS: AUTOMATED NEUTROPHIL # 4.7 TH/MM3 (1.8-7.7); BASOPHIL # 0.1 TH/MM3 (0-0.2); BASOPHIL % 0.8 % (0.0-2.0); EOSINOPHIL # 0.2 TH/MM3 (0-0.4); HEMATOCRIT 34.1 % (35.0-46.0); HEMOGLOBIN 11.7 GM/DL (11.6-15.3); LYMPH % 18.6 % (9.0-44.0); LYMPHOCYTE # 1.3 TH/MM3 (1.0-4.8); MEAN CELL VOLUME 94.3 FL (80.0-100.0); MEAN CORPUSCULAR HEMOGLOBIN 32.3 PG (27.0-34.0); MEAN CORPUSCULAR HGB CONC 34.2 % (32.0-36.0); MEAN PLATELET VOLUME 7.2 FL (7.0-11.0); MONO % 9.1 % (0.0-8.0); MONOCYTE # 0.6 TH/MM3 (0-0.9); NEUT % 68.5 % (16.0-70.0); PLATELET COUNT 276 TH/MM3 (150-450); RED BLOOD COUNT 3.62 MIL/MM3 (4.00-5.30); RED CELL DISTRIBUTION WIDTH 15.1 % (11.6-17.2); WHITE BLOOD COUNT 6.9 TH/MM3 (4.0-11.0)
[2017-10-04 18:07] VITALS: BP 171/75; PULSE 78; RESP 20; O2SAT 97
[2017-10-04 18:17] LABS: BICARBONATE 31.2 MEQ/L (21.0-32.0); CALCIUM 9.8 MG/DL (8.5-10.1); CREATININE 0.68 MG/DL (0.50-1.00)
[2017-10-04 18:37] LABS: BILIRUBIN, URINE NEG (NEG); BLOOD, URINE NEG (NEG); GLUCOSE,URINE NEG (NEG); HYALINE CAST, URINE 12 /lpf (RARE); KETONE, URINE NEG (NEG); MUCUS URINE MANY /lpf (OCC); NITRITE,URINE NEG (NEG); PH, URINE 5.5 (5.0-8.5); SQUAMOUS EPITHELIAL CELL URINE <1 /hpf (0-5); URINE COLOR YELLOW (YELLW/STRAW); URINE LEUKOCYTE ESTERASE NEG (NEG)
== END 2017-10-04 19:23 | disposition home or self-care (01) ==
LOC: NEPC 16:04
DX: R41.0 Disorientation, unspecified (principal); R51 Headache; M19.90 Unspecified osteoarthritis, unspecified site; I48.91 Unspecified atrial fibrillation; F41.9 Anxiety disorder, unspecified; E78.00 Pure hypercholesterolemia, unspecified; I11.0 Hypertensive heart disease with heart failure; I50.9 Heart failure, unspecified; Z86.718 Personal history of other venous thrombosis and embolism
CPT/HCPCS: 70450; 80048; 81001; 85025; 99284; P9612

== ENCOUNTER → 2018-03-19 | Outpatient (CLI) | payer MEDICARE ==
[~2018-03-19] MED LIST changes: +BIOT10TA PO; +MULT1TAB46 PO; +VITA100064 PO; +ZINC220T PO
[2018-03-19 10:50] LABS: AUTOMATED NEUTROPHIL # 4.1 TH/MM3 (1.8-7.7); BASOPHIL % 0.8 % (0.0-2.0); EOSINOPHIL # 0.1 TH/MM3 (0-0.4); EOSINOPHIL % 2.2 % (0.0-4.0); HEMATOCRIT 45.1 % (35.0-46.0); LYMPH % 20.5 % (9.0-44.0); LYMPHOCYTE # 1.2 TH/MM3 (1.0-4.8); MEAN CELL VOLUME 95.9 FL (80.0-100.0); MEAN CORPUSCULAR HEMOGLOBIN 31.9 PG (27.0-34.0); MEAN CORPUSCULAR HGB CONC 33.3 % (32.0-36.0); MEAN PLATELET VOLUME 8.1 FL (7.0-11.0); MONO % 8.2 % (0.0-8.0); MONOCYTE # 0.5 TH/MM3 (0-0.9); NEUT % 68.3 % (16.0-70.0); PLATELET COUNT 194 TH/MM3 (150-450); RED CELL DISTRIBUTION WIDTH 14.7 % (11.6-17.2); WHITE BLOOD COUNT 5.9 TH/MM3 (4.0-11.0)
[2018-03-19 11:06] LABS: INTERNATIONAL NORMALIZED RATIO 1.1 RATIO; PROTHROMBIN TIME - PATIENT 10.7 SEC (9.8-11.6)
[2018-03-19 11:08] LABS: ALBUMIN 3.4 GM/DL (3.4-5.0); BICARBONATE 30.9 MEQ/L (21.0-32.0); BLOOD UREA NITROGEN 19 MG/DL (7-18); CHLORIDE 106 MEQ/L (98-107); CREATININE 0.91 MG/DL (0.50-1.00); GLOMERULAR FILTRATION RATE 60 ML/MIN (>89); GLUCOSE,FASTING 102 MG/DL (74-99); SODIUM (NA) 142 MEQ/L (136-145)
[2018-03-19 11:09] LABS: AST (GOT) 22 U/L (15-37)
[2018-03-19 11:12] LABS: ALKALINE PHOSPHATASE 167 U/L (45-117); ALT (GPT) 32 U/L (10-53); TOTAL BILIRUBIN ADULT 0.4 MG/DL (0.2-1.0); TOTAL PROTEIN 7.1 GM/DL (6.4-8.2)
[2018-03-19 11:21] LABS: BACTERIA, URINE MANY /hpf; BILIRUBIN, URINE NEG (NEG); BLOOD, URINE SMALL (NEG); CALCIUM OXALATE CRYSTALS,URINE FEW /hpf; GLUCOSE,URINE NEG (NEG); HYALINE CAST, URINE 3 /lpf (RARE); KETONE, URINE NEG (NEG); MUCUS URINE MOD /lpf (OCC); NITRITE,URINE POS (NEG); SQUAMOUS EPITHELIAL CELL URINE 2 /hpf (0-5); URINE COLOR YELLOW (YELLW/STRAW); URINE LEUKOCYTE ESTERASE SMALL (NEG)
--- NOTE | 2018-03-19 12:24 | RADRPT ---
EXAM DATE: 03/19/2018 11:40 AM EDT AGE/SEX: 77 years / Female INDICATIONS: Evaluate for pneumonia, pneumothorax or communicable disease. Pre op colostomy reversal . CLINICAL DATA: This is the patient's initial encounter. Patient reports that signs and symptoms have been present for 1 day and indicates a pain score of 0/10. MEDICAL/SURGICAL HISTORY: . Myocardial infarction. COPD. Subdural hematoma. CHF. Hypertension. Afib . Colostomy. Cholecystectomy COMPARISON: [facility] [place], CHEST PA & LAT, 07/27/2017. . FINDINGS: Linear parenchymal opacity in the right middle lobe. No new focal pleural or parenchymal opacities. C ardiomegaly mediastinal contours are within normal limits. Degenerative changes about the shoulders. Bony thorax is intact. CONCLUSION: 1. Linear scarring in the right middle lobe. 2. No acute adenopathy or significant interval change. Electronically signed by: James Doty MD 03/19/2018 12:22 PM EDT
--- NOTE | 2018-03-19 12:36 | EKG ---
Date Performed: 03/19/2018 Time Performed: 10:26:50 PTAGE: 77 years EKG: ATRIAL FIBRILLATION WITH RAPID VENTRICULAR RESPONSE LOW QRS VOLTAGE IN EXTREMITY LEADS ABNO RMAL ECG PREVIOUS TRACING : 08/22/2017 20.19 Poor R-wave progression. This is somewhat different from th e prior study. This may reflect a limb lead change. Since the previous study, nonspecific T-wave mascorro ges have improved. DOCTOR: Vamshi Pino Interpretating Date/Time 03/19/2018 12:35:26
== END ==
LOC: CPRE 09:56
PROVIDERS: ATTEND Colon & Rectal Surgery
DX: Z01.810 Encounter for preprocedural cardiovascular examination (principal); K94.09 Other complications of colostomy; R94.31 Abnormal electrocardiogram [ECG] [EKG]; B96.20 Unspecified Escherichia coli [E. coli] as the cause of diseases classified elsewhere; Z79.01 Long term (current) use of anticoagulants; Z01.812 Encounter for preprocedural laboratory examination; Z01.818 Encounter for other preprocedural examination
CPT/HCPCS: 36415; 71046; 80053; 81001; 85025; 85610; 85730; 87077; 87086; 87186; 93005

== ENCOUNTER 2018-03-23 17:11 | Inpatient (IN) ==
[2018-03-27] MEDS ORDERED: Heparin - SQ 10,000 UNITS/ML Vial SQ ONE (23:13)
[2018-03-28] MEDS ORDERED: Potassium Chlor 40 mEq Premix 40 MEQ/100 ML PIGGYBACK IV.SIG PRN (00:01)
[2018-03-28] MEDS ORDERED: Acetaminophen 325 MG Tablet PO PRN (00:01)
[2018-03-28] MEDS ORDERED: Potassium Chlor 20 mEq Premix 20 MEQ/100 ML PIGGYBACK IV.SIG PRN (00:01)
[2018-03-28] MEDS ORDERED: Digoxin 125 MCG Tablet PO SCH (09:00)
[2018-03-28] MEDS ORDERED: dilTIAZem CD 240 MG Capsule PO SCH (09:00)
[2018-03-28] MEDS ORDERED: levETIRAcetam 500 MG Tablet PO SCH (09:00)
[2018-03-28] MEDS ORDERED: Heparin - SQ 10,000 UNITS/ML Vial SQ SCH (09:00)
[2018-03-28] MEDS ORDERED: Pantoprazole Inj 40 MG Vial IV.PUSH SCH (09:00)
--- NOTE | 2018-03-28 11:17 | P.PN ---
Subjective Interval history: POD#4 s/p colostomy closure comfortable, ready to go to rehab Physical Exam Vital signs: Abdomen soft, nondistended, mildly tender Wound clean Vital Signs 03/27/18 23:20 03/28/18 00:00 03/28/18 01:00 Temperature Pulse Rate 71 70 70 Respiratory Rate 16 Blood Pressure 110/58 L Pulse Oximetry 94 L 03/28/18 02:00 03/28/18 03:00 03/28/18 04:20 Temperature Pulse Rate 70 51 L 65 Respiratory Rate 16 Blood Pressure 128/75 Pulse Oximetry 03/28/18 07:00 03/28/18 08:00 03/28/18 09:00 Temperature 97.7 F Pulse Rate 85 88 84 Respiratory Rate 18 Blood Pressure 144/75 H Pulse Oximetry 98 03/28/18 10:00 Temperature Pulse Rate 72 Respiratory Rate Blood Pressure Pulse Oximetry Intake & Output 03/27/18 03/28/18 03/28/18 18:59 06:59 18:59 Intake Total 240 / 240 Output Total 500 / 500 Balance -260 / -260 Weight 75.5 kg Intake: Oral 240 / 240 Output: Urine 500 / 500 Results - Labs CBC & Chem 7: 03/26/18 05:46 03/26/18 05:46 Labs: Laboratory Results - last 24 hr 03/25/18 03/25/18 03/25/18 05:03 05:03 13:15 WBC 10.6 RBC 4.23 Hgb 13.5 Hct 40.8 MCV 96.5 MCH 31.9 MCHC 33.1 RDW 14.6 Plt Count 163 MPV 8.9 Neut % (Auto) 92.7 H Lymph % (Auto) 1.9 L Weber % (Auto) 5.3 Eos % (Auto) 0.0 Baso % (Auto) 0.1 Neut # (Auto) 9.9 H Lymph # (Auto) 0.2 L Weber # (Auto) 0.6 Eos # (Auto) 0.0 Baso # (Auto) 0.0 CBC Comment DIFF FINAL Sodium 142 Potassium 5.0 Chloride 109 H Carbon Dioxide 23.5 Anion Gap 10 BUN 19 H Creatinine 0.76 Estimated GFR 74 L Random Glucose 161 H Calcium 9.8 Nasal Screen MRSA (PCR) MRSA DETECTED 03/26/18 03/26/18 05:46 05:46 WBC 7.6 RBC 3.99 L Hgb 12.7 Hct 38.3 MCV 96.2 MCH 31.9 MCHC 33.2 RDW 14.9 Plt Count 152 MPV 8.7 Neut % (Auto) 86.7 H Lymph % (Auto) 4.8 L Weber % (Auto) 5.1 Eos % (Auto) 3.0 Baso % (Auto) 0.4 Neut # (Auto) 6.6 Lymph # (Auto) 0.4 L Weber # (Auto) 0.4 Eos # (Auto) 0.2 Baso # (Auto) 0.0 CBC Comment DIFF FINAL Sodium 140 Potassium 4.7 Chloride 109 H Carbon Dioxide 23.6 Anion Gap 7 BUN 17 Creatinine 0.57 Estimated GFR 103 Random Glucose 122 H Calcium 9.5 Nasal Screen MRSA (PCR) Assessment and Plan - Assessment (1) Colostomy in place Code(s): Z93.3 - Colostomy status Status: Acute - Plan Doing well Can transfer to Rehab when bed available
[2018-03-28 11:56] VITALS: RESP 16; O2SAT 99
[2018-03-28 15:36] VITALS: BP 130/69; PULSE 78; TEMP 98
--- NOTE | 2018-04-29 14:24 | MD ---
cc: Alejandro Wetzel MD, Diego DATE OF DISCHARGE: 03/28/2018 ADMITTING DIAGNOSES: History of a diverting colostomy, history of diverticular disease. PROCEDURE; On 03/24/2018, exploratory laparotomy with segmental colon resection and closure of colostomy. DISCHARGE DIAGNOSES: History of a diverting colostomy, history of diverticular disease. HISTORY OF PRESENT ILLNESS: Ms. Padilla is a very pleasant 77-year-old female known from previous admissions after diverticular disease and a colovesical fistula. She initially underwent a diverting colostomy and then had a resection of the fistula. Due to multiple medical problems, she has been living with the diverting colostomy now for some time. Initially, she was afraid to have the colostomy closed due to multiple strokes and other serious medical issues. She has actually gained some stability of her medical condition and recently became a little frustrated with the diverting colostomy. She was evaluated by multiple medical physicians and the previous colorectal anastomosis was examined and felt to be acceptable. She was therefore admitted at this time for elective closure of her diverting colostomy. HOSPITAL COURSE: Please see the admitting history and physical for more complete past medical and surgical history. PERTINENT PHYSICAL: A very pleasant older female in no acute distress. Abdomen was definitely doughy and soft. Colostomy was well pouched. Large abdominal wall hernia, easily reducible and soft, nontender. No masses or tenderness. Anal inspection revealed benign canal. Digital exam revealed some tightness, but no masses or irregularity and no blood on the finger. HOSPITAL COURSE: After admission, the patient was taken to the operating room on 03/24/2018 at which point, she underwent an exploratory laparotomy with segmental colon resection and closure of her colostomy. The abdominal wall hernia was left untouched. She did tolerate the procedure quite well. Initially, she was stabilized in the progressive care unit. Her GI tract function returned quite promptly and her diet was advanced accordingly. She required some physical therapy for postop weakness and help in walking. She also required some respiratory treatment for postoperative atelectasis. The patient was restarted on her blood thinners soon after the surgical procedure. PROCEDURE: The patient was doing well enough to be weaned off her IV fluids and considered ready for discharge home on the or 30 of March, does not say in chart. DISCHARGE INSTRUCTIONS: The patient was discharged eating a regular diet. She was to resume her anticoagulation. She was encouraged to ambulate daily, avoiding any heavy lifting or straining. All preop medications were to be resumed. The patient will be seen in 1 weeks' time for routine followup. Any problems prior to her scheduled office visit, she was encouraged to call for more urgent attention. MD BEATRIS Hughes/stephanie/keshav , 10:53 PM , 11:02 PM
== END 2018-03-28 17:13 ==
LOC: HCIS 21:34
PROVIDERS: ADMIT Colon & Rectal Surgery; ATTEND Colon & Rectal Surgery

== ENCOUNTER 2018-04-01 09:10 | Observation (INO) ==
[2018-04-01] MEDS ORDERED: Pantoprazole Inj 40 MG Vial IV.PUSH ONE (09:36)
[2018-04-01 10:13] LABS: Baso % (Auto) 0.5 % (0.0-2.0); Eos % (Auto) 0.3 % (0.0-4.0); Hematocrit 37.8 % (35.0-46.0); Hemoglobin 12.7 gm/dL (11.6-15.3); Lymph # (Auto) 0.3 th/mm3 (1.0-4.8); Lymph % (Auto) 4.9 % (9.0-44.0); Mean Corpuscular HGB Conc 33.5 % (32.0-36.0); Mean Corpuscular Hemoglobin 31.4 pg (27.0-34.0); Mean Corpuscular Volume 93.7 fL (80.0-100.0); Mean Platelet Volume 8.5 fL (7.0-11.0); Mono # (Auto) 0.6 th/mm3 (0.0-0.9); Mono % (Auto) 8.4 % (0.0-8.0); Neut # (Auto) 6.1 th/mm3 (1.8-7.7); Neut % (Auto) 85.9 % (16.0-70.0); Platelet Count 167 th/mm3 (150-450); Red Blood Count 4.03 mil/mm3 (4.00-5.30); Red Cell Distribution Width 14.3 % (11.6-17.2); White Blood Count 7.2 th/mm3 (4.0-11.0)
[2018-04-01 10:28] LABS: Activated Partial Thrombo Time 26.2 sec (24.3-30.1); INR 1.2 Ratio; Prothrombin Time 12.2 sec (9.8-11.6)
[2018-04-01 10:41] LABS: Alanine Aminotransferase 26 U/L (10-53); Albumin 2.5 g/dL (3.4-5.0); Anion Gap 10 meq/L (5-15); Aspartate Aminotransferase 34 U/L (15-37); Blood Urea Nitrogen 17 mg/dL (7-18); Carbon Dioxide 27.3 meq/L (21.0-32.0); Chloride 98 meq/L (98-107); Glomerular Filtration Rate 84 mL/min (>89); Glucose,Random 119 mg/dL (74-106); Magnesium 1.9 mg/dL (1.5-2.5); Potassium 4.5 meq/L (3.5-5.1); Sodium 135 meq/L (136-145)
[2018-04-01 10:44] LABS: Alkaline Phosphatase 136 U/L (45-117); Total Protein 6.4 g/dL (6.4-8.2)
--- NOTE | 2018-04-01 12:18 | P.HP ---
<Candelaria Long W - Last Filed: 04/01/18 19:05> History of Present Illness Primary Care Physician: Dayday Rutherford History of Present Illness: Mrs. Padilla is a pleasant 76 y/o WF with multiple medical issues and recent health-related complications, including PE/DVT, A. fib on chronic anticoagulation with Xarelto, SDH and who was most recently hospitalized from to 09/26/17 after a fall. Exploratory laparotomy with segmental colon resection and closure of colostomy 03/24/18. Patient then had a BM this AM with bright red blood present. Patient denies fevers, chills, N/V, chest pain, shortness of breath, feeling dizzy or lightheaded. Past Medical History L5 vertebral fracture (08/2017) DVT and PE 07/21/17, persistent DVT noted in late July. Recent right tentorium subdural hematoma/subcortical hemorrhage involving the right parietal field 05/29/17 Recent treatment for left lower lobe pneumonia Gastroesophageal reflux disease Hypertension Dyslipidemia Chronic atrial fibrillation CHADVASC 5. Pt was off anticoagulation d/t recent admission with SDH, but was started back on Xarelto in late July. Obstructive sleep apnea Hiatal hernia IBS History of splenic infarction History of DVT bilateral lower extremity status post embolectomy Depression Past Surgical History Lap-assisted loop colostomy with revision by Dr. Wetzel History of lower extremity embolectomy by Dr. 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 [employer] - Diagnosis (1) GI bleed (2) A-fib (3) Pulmonary embolism (4) HTN (hypertension) (5) Hyperlipidemia (6) GERD (gastroesophageal reflux disease) Review of Systems All other systems reviewed negative except as stated in HPI PMFSH - History History Provided By: Patient, Family Member - Medical History Medical History: Medical History (Last Reviewed 04/01/18 @ 12:39 by Guera Duenas MD) Afib COPD (chronic obstructive pulmonary disease) Heart failure Hypertension Muscle weakness (generalized) Seizure Vitamin deficiency - Surgical History Surgical History: Surgical History (Last Reviewed 04/01/18 @ 12:39 by Guera Duenas MD) History of cholecystectomy Hx of colostomy - Tobacco History Smoking Status: Former smoker Tobacco Type: Cigarettes - Alcohol History How Often Do You Have a Drink Containing Alcohol: Monthly or less - Substance Use History Substance History: No History of Abuse - Travel History Recent Travel in the [place] Within the Last 8 Weeks: No Recent Travel Out of the Country Within the Last 8 Weeks: No - Immunization History Tetanus Immunization: <5 Years Hx Influenza Vaccine This Season: Yes Medications and Allergies Allergies Allergy/AdvReac Type Severity Reaction Status Date / Time codeine Allergy Severe NAUSEA Verified 03/24/18 09:48 chlorhexidine Allergy Intermediate Rash, Verified 03/24/18 09:48 ITCHING piperacillin Allergy Intermediate Rash Verified 03/24/18 09:48 tazobactam Allergy Intermediate Rash Verified 03/24/18 09:48 vancomycin Allergy Unknown RASH Verified 03/24/18 09:48 Home Medications Medication Instructions Recorded Confirmed Type biotin 10 mg PO DAILY 03/27/18 04/01/18 History cholecalciferol (vitamin D3) 1,000 unit PO DAILY 03/27/18 04/01/18 History diltiazem HCl 240 mg PO DAILY 03/27/18 04/01/18 History duloxetine 30 mg PO DAILY 03/27/18 04/01/18 History furosemide 20 mg PO BID 03/27/18 04/01/18 History levetiracetam 500 mg PO BID 03/27/18 04/01/18 History multivitamin [Multiple Vitamins] 1 tab PO DAILY 03/27/18 04/01/18 History pantoprazole 40 mg PO DAILY 03/27/18 04/01/18 History potassium chloride 20 meq PO DAILY 03/27/18 04/01/18 History zinc sulfate 220 mg PO DAILY 03/27/18 04/01/18 History digoxin 0.125 mg PO DAILY 04/01/18 04/01/18 History Active Medications: Active Medications Ondansetron HCl (Zofran Inj) 4 mg IV.PUSH Q6H PRN PRN Reason: NAUSEA Pantoprazole Sodium (Protonix Inj) 40 mg IV.PUSH DAILY FELIX Sodium Chloride (Ns Flush) 2 ml IV.FLUSH PRN PRN PRN Reason: FLUSH AFTER USING IV ACCESS Last Admin: 04/01/18 10:16 Dose: 2 ml Sodium Chloride (Ns Flush) 2 ml IV.FLUSH BID FELIX Sodium Chloride (Ns Flush) 2 ml IV.FLUSH PRN PRN PRN Reason: FLUSH AFTER USING IV ACCESS Exam Vital signs: Vital Signs 04/01/18 09:27 04/01/18 09:30 04/01/18 10:13 Temperature 98.3 F Pulse Rate 93 H 80 Respiratory Rate 15 19 Blood Pressure 110/58 L 120/67 Pulse Oximetry 96 96 99 Intake & Output 03/31/18 04/01/18 04/01/18 18:59 06:59 18:59 Weight 72.121 kg Narrative: GENERAL: 77 year old female chronically ill appearing female, in no acute distress SKIN: Warm and dry. HEAD: Normocephalic. EYES: No scleral icterus. No injection or drainage. NECK: Supple, trachea midline. No JVD or lymphadenopathy. CARDIOVASCULAR: Regular rate and rhythm RESPIRATORY: Breath sounds equal bilaterally. No accessory muscle use. GASTROINTESTINAL: Abdomen soft, non-tender, nondistended. MUSCULOSKELETAL: No cyanosis, or edema. Results - Labs CBC & Chem 7: 04/01/18 18:08 04/01/18 14:32 Caprini VTE Risk Assessment Caprini VTE Risk Assessment: Moderate/High Risk (score >= 2) Caprini Risk Assessment Model: Point Value = 1 Point Value = 2 Point Value = 3 Point Value = 5 Age 41-60 Minor surgery BMI > 25 kg/m2 Swollen legs Varicose veins or History of unexplained or recurrent spontaneous Oral contraceptives or hormone replacement Sepsis (< 1 month) Serious lung disease, including pneumonia (< 1 month) Abnormal pulmonary function Acute myocardial infarction Congestive heart failure (< 1 month) History of inflammatory bowel disease Medical patient at bed rest Age 61-74 Arthroscopic surgery Major open surgery (> 45 min) Laparoscopic surgery (> 45 min) Malignancy Confined to bed (> 72 hours) Immobilizing plaster cast Central venous access Age >= 75 History of VTE Family history of VTE Factor V Leiden Prothrombin [id number] Lupus anticoagulant Anticardiolipin antibodies Elevated serum homocysteine Heparin-induced thrombocytopenia Other congenital or acquired thrombophilia Stroke (< 1 month) Elective arthroplasty Hip, pelvis, or leg fracture Acute spinal cord injury (< 1 month) Prophylaxis Regimen: Total Risk Factor Score Risk Level Prophylaxis Regimen 0-1 Low Early ambulation 2 Moderate Order ONE of the following: *Sequential Compression Device (SCD) *Heparin 5000 units SQ BID 3-4 Higher Order ONE of the following medications: *Heparin 5000 units SQ TID *Enoxaparin/Lovenox 40 mg SQ daily (WT < 150 kg, CrCl > 30 mL/min) *Enoxaparin/Lovenox 30 mg SQ daily (WT < 150 kg, CrCl > 10-29 mL/min) *Enoxaparin/Lovenox 30 mg SQ BID (WT < 150 kg, CrCl > 30 mL/min) AND/OR *Sequential Compression Device (SCD) 5 or more Highest Order ONE of the following medications: *Heparin 5000 units SQ TID (Preferred with Epidurals) *Enoxaparin/Lovenox 40 mg SQ daily (WT < 150 kg, CrCl > 30 mL/min) *Enoxaparin/Lovenox 30 mg SQ daily (WT < 150 kg, CrCl > 10-29 mL/min) *Enoxaparin/Lovenox 30 mg SQ BID (WT < 150 kg, CrCl > 30 mL/min) AND *Sequential Compression Device (SCD) Assessment and Plan - Assessment (1) GI bleed Code(s): K92.2 - Gastrointestinal hemorrhage, unspecified Status: Acute Plan: (1) GI bleed Code(s): K92.2 - Gastrointestinal hemorrhage, unspecified Status: Acute Plan: Exploratory laparotomy with segmental colon resection and closure of colostomy with Dr. Wetzel Patient presented to the ER with red blood per rectum Occult positive in ER ER provider discussed the case with Dr. Wetzel Consult placed to Dr. Wetzel Protonix 40 mg IV daily serial H&H NPO -> advance to clear liquid diet IVF for hydration (2) A-fib Code(s): I48.91 - Unspecified atrial fibrillation Status: Acute Plan: Atrial fibrillation Status: Chronic Plan: - Home meds continued - Hold Xarelto in light of possible GI bleed (3) Pulmonary embolism Code(s): I26.99 - Other pulmonary embolism without acute cor pulmonale Status : Acute Plan: Pulmonary embolism Chronic anticoagulation Status: Chronic Plan: - Pt had recent Pulmonary embolism (06/2017) and Bilateral LE DVT (06/2017) on chronic anticoagulation - Pt was resumed on Xarelto 07/2017 - Hold Xarelto in light of GI bleeding (4) HTN (hypertension) Code(s): I10 - Essential (primary) hypertension Status: Acute Plan: HTN (hypertension) Status: Chronic - Home meds continued (5) Hyperlipidemia Code(s): E78.5 - Hyperlipidemia, unspecified Status: Acute Plan: Hyperlipidemia Status: Chronic - Home meds continued (6) GERD (gastroesophageal reflux disease) Code(s): K21.9 - Gastro-esophageal reflux disease without esophagitis Status: Acute Plan: Gastroesophageal reflux disease Status: Chronic - see above (2) A-fib Code(s): I48.91 - Unspecified atrial fibrillation Status: Acute (3) Pulmonary embolism Code(s): I26.99 - Other pulmonary embolism without acute cor pulmonale Status : Acute (4) HTN (hypertension) Code(s): I10 - Essential (primary) hypertension Status: Acute (5) Hyperlipidemia Code(s): E78.5 - Hyperlipidemia, unspecified Status: Acute (6) GERD (gastroesophageal reflux disease) Code(s): K21.9 - Gastro-esophageal reflux disease without esophagitis Status: Acute <Ivan Michael - Last Filed: 04/19/18 23:19> History of Present Illness Primary Care Physician: Dayday Rutherford - Diagnosis (1) GI bleed (2) A-fib (3) Pulmonary embolism (4) HTN (hypertension) (5) Hyperlipidemia (6) GERD (gastroesophageal reflux disease) [facility] - Medical History Medical History: Medical History (Last Reviewed 04/01/18 @ 12:39 by Guera Duenas MD) Afib COPD (chronic obstructive pulmonary disease) Heart failure Hypertension Muscle weakness (generalized) Seizure Vitamin deficiency - Surgical History Surgical History: Surgical History (Last Reviewed 04/01/18 @ 12:39 by Guera Duenas MD) History of cholecystectomy Hx of colostomy Results - Labs CBC & Chem 7: 04/02/18 14:39 04/01/18 14:32 Caprini VTE Risk Assessment Caprini Risk Assessment Model: Point Value = 1 Point Value = 2 Point Value = 3 Point Value = 5 Age 41-60 Minor surgery BMI > 25 kg/m2 Swollen legs Varicose veins or History of unexplained or recurrent spontaneous Oral contraceptives or hormone replacement Sepsis (< 1 month) Serious lung disease, including pneumonia (< 1 month) Abnormal pulmonary function Acute myocardial infarction Congestive heart failure (< 1 month) History of inflammatory bowel disease Medical patient at bed rest Age 61-74 Arthroscopic surgery Major open surgery (> 45 min) Laparoscopic surgery (> 45 min) Malignancy Confined to bed (> 72 hours) Immobilizing plaster cast Central venous access Age >= 75 History of VTE Family history of VTE Factor V Leiden Prothrombin [id number] Lupus anticoagulant Anticardiolipin antibodies Elevated serum homocysteine Heparin-induced thrombocytopenia Other congenital or acquired thrombophilia Stroke (< 1 month) Elective arthroplasty Hip, pelvis, or leg fracture Acute spinal cord injury (< 1 month) Prophylaxis Regimen: Total Risk Factor Score Risk Level Prophylaxis Regimen 0-1 Low Early ambulation 2 Moderate Order ONE of the following: *Sequential Compression Device (SCD) *Heparin 5000 units SQ BID 3-4 Higher Order ONE of the following medications: *Heparin 5000 units SQ TID *Enoxaparin/Lovenox 40 mg SQ daily (WT < 150 kg, CrCl > 30 mL/min) *Enoxaparin/Lovenox 30 mg SQ daily (WT < 150 kg, CrCl > 10-29 mL/min) *Enoxaparin/Lovenox 30 mg SQ BID (WT < 150 kg, CrCl > 30 mL/min) AND/OR *Sequential Compression Device (SCD) 5 or more Highest Order ONE of the following medications: *Heparin 5000 units SQ TID (Preferred with Epidurals) *Enoxaparin/Lovenox 40 mg SQ daily (WT < 150 kg, CrCl > 30 mL/min) *Enoxaparin/Lovenox 30 mg SQ daily (WT < 150 kg, CrCl > 10-29 mL/min) *Enoxaparin/Lovenox 30 mg SQ BID (WT < 150 kg, CrCl > 30 mL/min) AND *Sequential Compression Device (SCD) Assessment and Plan - Assessment (1) GI bleed Code(s): K92.2 - Gastrointestinal hemorrhage, unspecified Status: Acute (2) A-fib Code(s): I48.91 - Unspecified atrial fibrillation Status: Acute (3) Pulmonary embolism Code(s): I26.99 - Other pulmonary embolism without acute cor pulmonale Status : Acute (4) HTN (hypertension) Code(s): I10 - Essential (primary) hypertension Status: Acute (5) Hyperlipidemia Code(s): E78.5 - Hyperlipidemia, unspecified Status: Acute (6) GERD (gastroesophageal reflux disease) Code(s): K21.9 - Gastro-esophageal reflux disease without esophagitis Status: Acute - Attending Attestation Patient examined. Assessment and plan formulated with Candelaria TRAORE I agree with the above. <Candelaria Long W - Last Filed: 04/01/18 19:05> (1) GI bleed Qualifiers: GI bleed type/associated pathology: unspecified gastrointestinal hemorrhage type Qualified Code(s): K92.2 - Gastrointestinal hemorrhage, unspecified (2) A-fib Qualifiers: Atrial fibrillation type: unspecified Qualified Code(s): I48.91 - Unspecified atrial fibrillation <Ivan Michael B - Last Filed: 04/19/18 23:19> (1) GI bleed Qualifiers: GI bleed type/associated pathology: unspecified gastrointestinal hemorrhage type Qualified Code(s): K92.2 - Gastrointestinal hemorrhage, unspecified (2) A-fib Qualifiers: Atrial fibrillation type: unspecified Qualified Code(s): I48.91 - Unspecified atrial fibrillation
--- NOTE | 2018-04-01 12:40 | ED ---
HPI General Chief complaint: GI Bleed Stated complaint: GI Time Seen by Provider: 04/01/18 09:35 Source: patient and family Limitations: other (Patient is a poor historian) History of Present Illness HPI Narrative: 77-year-old female who presents with her daughter after having a colostomy 2 years ago for a fistula tear and having it reversed 1 week ago and now with GI bleed. complaint: melena and blood streaked stool Onset (ago): day(s) Pain Consistency: constant Relieving factors: none Exacerbating factors: none Context: other (Colostomy reversal [address] Wetzel, on Xarelto which was held today) Associated symptoms: malaise Related Data Home Medications Medication Instructions Recorded Confirmed biotin 10 mg PO DAILY 03/27/18 04/01/18 cholecalciferol (vitamin D3) 1,000 unit PO DAILY 03/27/18 04/01/18 digoxin 0.125 mg PO DAILY 03/27/18 04/01/18 diltiazem HCl 240 mg PO DAILY 03/27/18 04/01/18 duloxetine 30 mg PO DAILY 03/27/18 04/01/18 furosemide 20 mg PO BID 03/27/18 04/01/18 levetiracetam 500 mg PO BID 03/27/18 04/01/18 multivitamin [Multiple Vitamins] 1 tab PO DAILY 03/27/18 04/01/18 pantoprazole 40 mg PO DAILY 03/27/18 04/01/18 potassium chloride 20 meq PO DAILY 03/27/18 04/01/18 rivaroxaban 20 mg PO DAILY 03/27/18 04/01/18 zinc sulfate 220 mg PO DAILY 03/27/18 04/01/18 Allergies Allergy/AdvReac Type Severity Reaction Status Date / Time codeine Allergy Severe NAUSEA Verified 03/24/18 09:48 chlorhexidine Allergy Intermediate Rash, Verified 03/24/18 09:48 ITCHING piperacillin Allergy Intermediate Rash Verified 03/24/18 09:48 tazobactam Allergy Intermediate Rash Verified 03/24/18 09:48 vancomycin Allergy Unknown RASH Verified 03/24/18 09:48 Review of Systems ROS Unobtainable All other systems reviewed negative except as stated in HPI [facility] Medical History Medical History Afib (Acute) COPD (chronic obstructive pulmonary disease) (Acute) Heart failure (Acute) Hypertension (Acute) Muscle weakness (generalized) (Acute) Seizure (Acute) Vitamin deficiency (Acute) Surgical History Surgical History History of cholecystectomy (Acute) Hx of colostomy (Acute) Social History Social History Substance History: No History of Abuse Smoking Status: Former smoker Tobacco Type: Cigarettes How Often Do You Have a Drink Containing Alcohol: Monthly or less Recent Travel in [facility] within the Last 8 Weeks: No Recent Out of Country Travel within the Last 8 Weeks: No Immunization History Tetanus Immunization: <5 Years Hx Influenza Vaccine This Season: Yes Exam Narrative Exam Narrative: GENERAL: 77 y/o female in no apparent distress SKIN: Focused skin assessment warm/dry. HEAD: Atraumatic. Normocephalic. EYES: Pupils equal and round. No scleral icterus. No injection or drainage. ENT: No nasal bleeding or discharge. Mucous membranes pink and moist. NECK: Trachea midline CARDIOVASCULAR: Regular rate and rhythm. RESPIRATORY: No accessory muscle use. Clear to auscultation. Breath sounds equal bilaterally. GASTROINTESTINAL: Abdomen soft, non-tender, nondistended. MUSCULOSKELETAL: No obvious deformities. No clubbing. No cyanosis. NEUROLOGICAL: Awake. moves all extremities. Normal speech. RECTAL EXAM: Performed with woodworking belt sander and after permission. No external hemorrhoid or fissure, stool is black-bloody. Procedures Hemaprompt Stool Procedural Steps Taken: specimen placed in appropriate test area, developer placed on specimen and control areas and controls appropriately positive and negative Hemaprompt Stool Result: positive Course Hospital Course: Patient stable in the ER. Will admit to the hospital for further care Consultations Consultation #1: Dr. Wetzel states to admit to medicine and he will follow along. States likely not related to surgery and to hold Xarelto Consultation #2: Dr. Michael agrees to admission Initial Documented Vital Signs Temperature 98.3 F 04/01/18 09:27 Pulse Rate 93 H 04/01/18 09:27 Respiratory Rate 15 04/01/18 09:27 Blood Pressure 110/58 L 04/01/18 09:27 Pulse Oximetry 96 04/01/18 09:27 Last Documented Vital Signs Temperature 98.3 F 04/01/18 09:27 Pulse Rate 80 04/01/18 09:30 Respiratory Rate 19 04/01/18 09:30 Blood Pressure 120/67 04/01/18 09:30 Pulse Oximetry 99 04/01/18 10:13 Medical Decision Making MDM Narrative Medical decision making narrative: Patient is having GI bleed 1 week after colostomy reversal. Will check blood work and dose with Protonix and discuss with her surgeon. Differential Diagnosis Differential Diagnosis: Gastritis, diverticulosis, postop Lab Data Lab results reviewed: Yes I reviewed the patient's lab results. Result diagrams: 04/01/18 10:00 04/01/18 10:00 Lab Results 04/01/18 04/01/18 04/01/18 Range/Units 10:00 10:00 10:00 WBC 7.2 (4.0-11.0) th/mm3 RBC 4.03 (4.00-5.30) mil/mm3 Hgb 12.7 (11.6-15.3) gm/dL Hct 37.8 (35.0-46.0) % MCV 93.7 (80.0-100.0) fL MCH 31.4 (27.0-34.0) pg MCHC 33.5 (32.0-36.0) % RDW 14.3 (11.6-17.2) % Plt Count 167 (150-450) th/mm3 MPV 8.5 (7.0-11.0) fL Neut % (Auto) 85.9 H (16.0-70.0) % Lymph % (Auto) 4.9 L (9.0-44.0) % [place] % (Auto) 8.4 H (0.0-8.0) % Eos % (Auto) 0.3 (0.0-4.0) % Baso % (Auto) 0.5 (0.0-2.0) % Neut # (Auto) 6.1 (1.8-7.7) th/mm3 Lymph # (Auto) 0.3 L (1.0-4.8) th/mm3 [place] # (Auto) 0.6 (0.0-0.9) th/mm3 Eos # (Auto) 0.0 (0.0-0.4) th/mm3 Baso # (Auto) 0.0 (0.0-0.2) th/mm3 WBC Differential . Differential Comment Auto diff final PT 12.2 H (9.8-11.6) sec INR 1.2 Ratio APTT 26.2 (24.3-30.1) sec Sodium 135 L (136-145) meq/L Potassium 4.5 (3.5-5.1) meq/L Chloride 98 (98-107) meq/L Carbon Dioxide 27.3 (21.0-32.0) meq/L Anion Gap 10 (5-15) meq/L BUN 17 (7-18) mg/dL Creatinine 0.68 (0.50-1.00) mg/dL Estimated GFR 84 L (>89) mL/min Random Glucose 119 H (74-106) mg/dL Calcium 10.0 (8.5-10.1) mg/dL Magnesium 1.9 (1.5-2.5) mg/dL Total Bilirubin 0.7 (0.2-1.0) mg/dL AST 34 (15-37) U/L ALT 26 (10-53) U/L Alkaline Phosphatase 136 H (45-117) U/L Total Protein 6.4 (6.4-8.2) g/dL Albumin 2.5 L (3.4-5.0) g/dL Blood Type Blood Type Confirm Antibody Screen 04/01/18 04/01/18 Range/Units 10:00 10:17 WBC (4.0-11.0) th/mm3 RBC (4.00-5.30) mil/mm3 Hgb (11.6-15.3) gm/dL Hct (35.0-46.0) % MCV (80.0-100.0) fL MCH (27.0-34.0) pg MCHC (32.0-36.0) % RDW (11.6-17.2) % Plt Count (150-450) th/mm3 MPV (7.0-11.0) fL Neut % (Auto) (16.0-70.0) % Lymph % (Auto) (9.0-44.0) % [place] % (Auto) (0.0-8.0) % Eos % (Auto) (0.0-4.0) % Baso % (Auto) (0.0-2.0) % Neut # (Auto) (1.8-7.7) th/mm3 Lymph # (Auto) (1.0-4.8) th/mm3 [place]uel # (Auto) (0.0-0.9) th/mm3 Eos # (Auto) (0.0-0.4) th/mm3 Baso # (Auto) (0.0-0.2) th/mm3 WBC Differential Differential Comment PT (9.8-11.6) sec INR Ratio APTT (24.3-30.1) sec Sodium (136-145) meq/L Potassium (3.5-5.1) meq/L Chloride (98-107) meq/L Carbon Dioxide (21.0-32.0) meq/L Anion Gap (5-15) meq/L BUN (7-18) mg/dL Creatinine (0.50-1.00) mg/dL Estimated GFR (>89) mL/min Random Glucose (74-106) mg/dL Calcium (8.5-10.1) mg/dL Magnesium (1.5-2.5) mg/dL Total Bilirubin (0.2-1.0) mg/dL AST (15-37) U/L ALT (10-53) U/L Alkaline Phosphatase (45-117) U/L Total Protein (6.4-8.2) g/dL Albumin (3.4-5.0) g/dL Blood Type O Positive Blood Type Confirm O Positive Antibody Screen Negative Discharge Plan Discharge Disposition Patient Disposition: 30 Still Patient Discharge Details Discharge Problem: GI bleed, A-fib Physicians Team ED Provider: Guera Duenas Primary Care Provider: Dayday Rutherford Attending Provider: Ivan Michael Other Providers: Alejandro Wetzel Discharge Interventions Interventions: Vital Signs Last Done: 04/01/18 09:30 Status ED Status: Admitted Observation Patient
[2018-04-01 14:51] LABS: Baso % (Auto) 0.4 % (0.0-2.0); Eos % (Auto) 0.4 % (0.0-4.0); Hematocrit 40.1 % (35.0-46.0); Hemoglobin 13.3 gm/dL (11.6-15.3); Lymph # (Auto) 0.6 th/mm3 (1.0-4.8); Lymph % (Auto) 8.3 % (9.0-44.0); Mean Corpuscular HGB Conc 33.2 % (32.0-36.0); Mean Corpuscular Hemoglobin 31.4 pg (27.0-34.0); Mean Corpuscular Volume 94.8 fL (80.0-100.0); Mean Platelet Volume 8.9 fL (7.0-11.0); Mono # (Auto) 0.6 th/mm3 (0.0-0.9); Mono % (Auto) 9.2 % (0.0-8.0); Neut # (Auto) 5.4 th/mm3 (1.8-7.7); Neut % (Auto) 81.7 % (16.0-70.0); Platelet Count 165 th/mm3 (150-450); Red Blood Count 4.24 mil/mm3 (4.00-5.30); Red Cell Distribution Width 14.3 % (11.6-17.2); White Blood Count 6.6 th/mm3 (4.0-11.0)
[2018-04-01 15:30] LABS: Calcium 9.8 mg/dL (8.5-10.1); Carbon Dioxide 28.8 meq/L (21.0-32.0); Potassium 4.3 meq/L (3.5-5.1)
--- NOTE | 2018-04-01 17:50 | ECG ---
Date Performed: 04/01/2018 Time Performed: 09:31:36 PTAGE: 77 years EKG: ATRIAL FIBRILLATION SEPTAL MYOCARDIAL INFARCTION ABNORMAL ECG PREVIOUS TRACING :03/23/2018 @18.48 DOCTOR: Anabelle Abebe Interpretating Date/Time 04/01/2018 17:49:02
[2018-04-01 18:22] LABS: Hematocrit 37.4 % (35.0-46.0); Hemoglobin 12.6 gm/dL (11.6-15.3)
[2018-04-01] MEDS: levETIRAcetam 500 MG Tablet PO SCH (20:05)
[2018-04-01] MEDS: Furosemide 20 MG Tablet PO SCH (20:06)
--- NOTE | 2018-04-01 22:30 | P.PN ---
Physical Exam Vital signs: Vital Signs 04/01/18 09:27 04/01/18 09:30 04/01/18 10:13 Temperature 98.3 F Pulse Rate 93 H 80 Respiratory Rate 15 19 Blood Pressure 110/58 L 120/67 Pulse Oximetry 96 96 99 04/01/18 13:30 04/01/18 16:00 04/01/18 20:00 Temperature 98.9 F 98.3 F Pulse Rate 99 H 80 92 H Respiratory Rate 18 16 18 Blood Pressure 107/57 L 109/57 L 124/59 L Pulse Oximetry 95 95 92 L Intake & Output 04/01/18 04/01/18 04/02/18 06:59 18:59 06:59 Weight 72.121 kg Narrative: reviewed pre-hosp course - small BRB on TP appet OK stools OK, maybe dark - Routine Abdominal Exam Present: soft, normoactive bowel sounds - Detailed Abdominal Exam Comments: non-tender, no mass, incision healed Results - Labs CBC & Chem 7: 04/01/18 18:08 04/01/18 14:32 Laboratory Results - last 24 hr 04/01/18 04/01/18 04/01/18 10:00 10:00 10:00 WBC 7.2 RBC 4.03 Hgb 12.7 Hct 37.8 MCV 93.7 MCH 31.4 MCHC 33.5 RDW 14.3 Plt Count 167 MPV 8.5 Neut % (Auto) 85.9 H Lymph % (Auto) 4.9 L [place] % (Auto) 8.4 H Eos % (Auto) 0.3 Baso % (Auto) 0.5 Neut # (Auto) 6.1 Lymph # (Auto) 0.3 L [place] # (Auto) 0.6 Eos # (Auto) 0.0 Baso # (Auto) 0.0 WBC Differential . Differential Comment Auto diff final PT 12.2 H INR 1.2 APTT 26.2 Sodium 135 L Potassium 4.5 Chloride 98 Carbon Dioxide 27.3 Anion Gap 10 BUN 17 Creatinine 0.68 Estimated GFR 84 L Random Glucose 119 H Calcium 10.0 Magnesium 1.9 Total Bilirubin 0.7 AST 34 ALT 26 Alkaline Phosphatase 136 H Total Protein 6.4 Albumin 2.5 L Blood Type Blood Type Confirm Antibody Screen 04/01/18 04/01/18 04/01/18 10:00 10:17 14:32 WBC 6.6 RBC 4.24 Hgb 13.3 Hct 40.1 MCV 94.8 MCH 31.4 MCHC 33.2 RDW 14.3 Plt Count 165 MPV 8.9 Neut % (Auto) 81.7 H Lymph % (Auto) 8.3 L [place] % (Auto) 9.2 H Eos % (Auto) 0.4 Baso % (Auto) 0.4 Neut # (Auto) 5.4 Lymph # (Auto) 0.6 L [place] # (Auto) 0.6 Eos # (Auto) 0.0 Baso # (Auto) 0.0 WBC Differential . Differential Comment Auto diff final PT INR APTT Sodium Potassium Chloride Carbon Dioxide Anion Gap BUN Creatinine Estimated GFR Random Glucose Calcium Magnesium Total Bilirubin AST ALT Alkaline Phosphatase Total Protein Albumin Blood Type O Positive Blood Type Confirm O Positive Antibody Screen Negative 04/01/18 04/01/18 14:32 18:08 WBC RBC Hgb 12.6 Hct 37.4 MCV MCH MCHC RDW Plt Count MPV Neut % (Auto) Lymph % (Auto) [place] % (Auto) Eos % (Auto) Baso % (Auto) Neut # (Auto) Lymph # (Auto) [place] # (Auto) Eos # (Auto) Baso # (Auto) WBC Differential Differential Comment PT INR APTT Sodium 136 Potassium 4.3 Chloride 98 Carbon Dioxide 28.8 Anion Gap 9 BUN 16 Creatinine 0.65 Estimated GFR 88 L Random Glucose 91 Calcium 9.8 Magnesium Total Bilirubin AST ALT Alkaline Phosphatase Total Protein Albumin Blood Type Blood Type Confirm Antibody Screen Assessment and Plan - Plan stable, OOB cont H2 miguel, watch H/H hold anti-coag
[2018-04-01 23:42] LABS: Hematocrit 40.1 % (35.0-46.0); Hemoglobin 13.3 gm/dL (11.6-15.3)
[2018-04-02] MEDS: Sucralfate 1 GM Tablet PO SCH ×2 (00:30→08:46)
[2018-04-02 07:00] LABS: Hematocrit 37.6 % (35.0-46.0); Hemoglobin 12.6 gm/dL (11.6-15.3)
[2018-04-02] MEDS: levETIRAcetam 500 MG Tablet PO SCH (08:46)
[2018-04-02] MEDS: Furosemide 20 MG Tablet PO SCH (08:46)
[2018-04-02] MEDS ORDERED: Digoxin 125 MCG Tablet PO SCH (09:00)
[2018-04-02] MEDS ORDERED: dilTIAZem CD 240 MG Capsule PO SCH (09:00)
--- NOTE | 2018-04-02 10:38 | P.DS ---
<Candelaria Long W - Last Filed: 04/02/18 16:32> Date of admission: 04/01/18 11:12 Primary care physician: Dr. Apple Attending physician on discharge: Ivan Michael Brief History from admission: Mrs. Padilla is a pleasant 76 y/o WF with multiple medical issues and recent health-related complications, including PE/DVT, A. fib on chronic anticoagulation with Xarelto, SDH and who was most recently hospitalized from to 09/26/17 after a fall. Exploratory laparotomy with segmental colon resection and closure of colostomy 03/24/18. Patient then had a BM this AM with bright red blood present. Patient denies fevers, chills, N/V, chest pain, shortness of breath, feeling dizzy or lightheaded. DS: Diagnosis - Discharge Diagnosis (1) GI bleed Status: Acute (2) A-fib Status: Acute (3) Pulmonary embolism Status: Acute (4) HTN (hypertension) Status: Acute (5) Hyperlipidemia Status: Acute (6) GERD (gastroesophageal reflux disease) Status: Acute DS: Summary Hospital Course: GI bleed Exploratory laparotomy with segmental colon resection and closure of colostomy with Dr. Wetzel Patient presented to the ER with red blood per rectum Occult positive in ER ER provider discussed the case with Dr. Wetzel Consult placed to Dr. Wetzel, appreciate input. Dr. Wetzel recommends holding anticoagulation due to GI bleed. Patient to follow up with Dr. Wetzel in 1 week for instructions on when to resume Xarelto Protonix 40 mg IV daily transitioned to PO serial H&H 12.7 (on admission) -> 13.3 -> 12.6 -> 13.3 -> 12.6 -> 13.5 NPO -> advance to clear liquid diet -> advance to cardiac diet IVF for hydration initially then DC'd once tolerating PO intake Dr. Michael discussed the case with Dr. 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) on chronic anticoagulation - Pt was resumed on Xarelto 07/2017 - Hold Xarelto in light of GI bleeding HTN (hypertension) - Home meds continued Hyperlipidemia - Home meds continued Gastroesophageal reflux disease - see above - Time Spent with Patient Total time spent providing and/or coordinating discharge services: Greater than 30 minutes - Quality: VTE Deep Vein Thrombosis/Pulmonary Embolism Present on Admission: No Exam Vital signs: Vital Signs 04/01/18 13:30 04/01/18 16:00 04/01/18 20:00 Temperature 98.9 F 98.3 F Pulse Rate 99 H 80 84 Respiratory Rate 18 16 18 Blood Pressure 107/57 L 109/57 L 124/59 L Pulse Oximetry 95 95 92 L 04/02/18 00:00 04/02/18 04:00 04/02/18 08:00 Temperature 98.1 F 98.3 F 99.2 F Pulse Rate 77 81 88 Respiratory Rate 16 16 16 Blood Pressure 117/61 123/59 L 128/58 L Pulse Oximetry 95 96 96 Intake & Output 04/01/18 04/02/18 04/02/18 18:59 06:59 18:59 Intake Total 240 / 240 Balance 240 / 240 Weight 72.121 kg Intake: Oral 240 / 240 Other: # Voids 2 Date of Last Bowel Movement 03/31/18 Narrative: GENERAL: 77 year old female chronically ill appearing female, in no acute distress CARDIOVASCULAR: Irregularly irregular RESPIRATORY: Breath sounds equal bilaterally. No accessory muscle use. GASTROINTESTINAL: Abdomen soft, non-tender, nondistended. MUSCULOSKELETAL: No cyanosis, or edema. Results Procedures completed during hospitalization: none Labs on day of discharge: Labs from last 24 hours 04/02/18 04/01/18 04/01/18 05:43 23:08 18:08 WBC RBC Hgb 12.6 13.3 12.6 Hct 37.6 40.1 37.4 MCV MCH MCHC RDW Plt Count MPV Neut % (Auto) Lymph % (Auto) Mercer % (Auto) Eos % (Auto) Baso % (Auto) Neut # (Auto) Lymph # (Auto) Mercer # (Auto) Eos # (Auto) Baso # (Auto) WBC Differential Differential Comment Sodium Potassium Chloride Carbon Dioxide Anion Gap BUN Creatinine Estimated GFR Random Glucose Calcium Magnesium Total Bilirubin AST ALT Alkaline Phosphatase Total Protein Albumin Blood Type Antibody Screen 04/01/18 04/01/18 04/01/18 14:32 14:32 10:00 WBC 6.6 RBC 4.24 Hgb 13.3 Hct 40.1 MCV 94.8 MCH 31.4 MCHC 33.2 RDW 14.3 Plt Count 165 MPV 8.9 Neut % (Auto) 81.7 H Lymph % (Auto) 8.3 L Mercer % (Auto) 9.2 H Eos % (Auto) 0.4 Baso % (Auto) 0.4 Neut # (Auto) 5.4 Lymph # (Auto) 0.6 L Mercer # (Auto) 0.6 Eos # (Auto) 0.0 Baso # (Auto) 0.0 WBC Differential . Differential Comment Auto diff final Sodium 136 Potassium 4.3 Chloride 98 Carbon Dioxide 28.8 Anion Gap 9 BUN 16 Creatinine 0.65 Estimated GFR 88 L Random Glucose 91 Calcium 9.8 Magnesium Total Bilirubin AST ALT Alkaline Phosphatase Total Protein Albumin Blood Type O Positive Antibody Screen Negative 04/01/18 10:00 WBC RBC Hgb Hct MCV MCH MCHC RDW Plt Count MPV Neut % (Auto) Lymph % (Auto) Mercer % (Auto) Eos % (Auto) Baso % (Auto) Neut # (Auto) Lymph # (Auto) Mercer # (Auto) Eos # (Auto) Baso # (Auto) WBC Differential Differential Comment Sodium 135 L Potassium 4.5 Chloride 98 Carbon Dioxide 27.3 Anion Gap 10 BUN 17 Creatinine 0.68 Estimated GFR 84 L Random Glucose 119 H Calcium 10.0 Magnesium 1.9 Total Bilirubin 0.7 AST 34 ALT 26 Alkaline Phosphatase 136 H Total Protein 6.4 Albumin 2.5 L Blood Type Antibody Screen <Ivan Michael - Last Filed: 04/19/18 23:20> Date of admission: 04/01/18 11:12 Primary care physician: Dayday Rutherford DS: Diagnosis - Discharge Diagnosis (1) GI bleed Status: Acute (2) A-fib Status: Acute (3) Pulmonary embolism Status: Acute (4) HTN (hypertension) Status: Acute (5) Hyperlipidemia Status: Acute (6) GERD (gastroesophageal reflux disease) Status: Acute DS: Summary Hospital Course: Patient examined. Assessment and plan formulated with Candelaria Long PA-C. I agree with the above. - Time Spent with Patient Total time spent providing and/or coordinating discharge services: Greater than 30 minutes Discharge Plan - Discharge Order Discharge Orders: Discharge Order (Routine); Ordered 04/02/18 Ordered By: Candelaria Long - Discharge Details Anticipated Discharge Date: 04/02/18 - Physicians Team Primary Care Provider: Dayday Rutherford Attending Provider: Ivan Michael Other Providers: Alejandro Wetzel MD ; 1 Richelle Gaona ; [facility]
[2018-04-02 14:53] LABS: Hematocrit 40.4 % (35.0-46.0); Hemoglobin 13.5 gm/dL (11.6-15.3); Mean Corpuscular HGB Conc 33.5 % (32.0-36.0); Mean Corpuscular Volume 95.6 fL (80.0-100.0); Mean Platelet Volume 8.7 fL (7.0-11.0); Platelet Count 170 th/mm3 (150-450); Red Blood Count 4.22 mil/mm3 (4.00-5.30); Red Cell Distribution Width 14.2 % (11.6-17.2); White Blood Count 7.7 th/mm3 (4.0-11.0)
[2018-04-02] MEDS ORDERED: Pantoprazole Inj 40 MG Vial IV.PUSH SCH (20:00)
== END 2018-04-02 18:07 ==
LOC: NEPFCDU 09:10 → NEPE 09:10 → NEDA 09:10 → NEPFCDU 14:53
PROVIDERS: ADMIT Hospitalist; ATTEND Hospitalist